=== PATIENT | male | born 1955 | race Caucasian/White ===

== ENCOUNTER 2016-12-17 21:56 | Emergency (ER) | payer OTHER ==
[~2016-12-17] VITALS: Ht 175.3 cm; Wt 119.3 kg
[~2016-12-17 21:56] MED LIST: METROGEL; PROV90AE; TRAZ50TA
[2016-12-17] MEDS ORDERED: [UNRECOGNIZED DRUG - OTHER] (22:22)
[2016-12-17] MEDS ORDERED: DULO1CAP2 PO (22:22)
[2016-12-17] MEDS ORDERED: ALBU17IN INH (22:22)
[2016-12-17] MEDS ORDERED: SYMB16INH INH (22:22)
[2016-12-17] MEDS ORDERED: INCR1INH IN (22:22)
[2016-12-17] MEDS ORDERED: XANA0.5T PO (22:22)
[2016-12-17 23:20] LABS: YEAST LIKE CELL URINE AUTO LARGE
[2016-12-17 23:59] LABS: BASO # 0.1 K/mm3 (0.0-0.2); EOS # 0.4 K/mm3 (0.0-0.50); EOS % 3.2 % (0.0-3.0); LARGE UNSTAINED CELL # 0.1 K/mm3 (0.0-0.4); LYMPH # 2.5 K/mm3 (1.5-4.5); LYMPH % 20.8 % (24.0-44.0); MEAN CORPUSCULAR HEMOGLOBIN 30.1 pg (27.0-33.0); MEAN CORPUSCULAR HGB CONC 33.5 g/dl (32.0-36.5); MEAN CORPUSCULAR VOLUME 90.1 fl (80.0-96.0); MONO # 0.8 K/mm3 (0.0-0.8); MONO % 6.8 % (0.0-5.0); NEUTROPHILS # 7.9 K/mm3 (1.8-7.7); NEUTROPHILS % 67.1 % (36.0-66.0); PLATELET COUNT, AUTOMATED 358 k/mm3 (150-450); RED CELL DISTRIBUTION WIDTH 13.6 % (11.5-14.5); WHITE BLOOD COUNT 11.7 K/mm3 (4.0-10.0)
[2016-12-18 00:03] LABS: INR 0.97
[2016-12-18 00:19] LABS: ANION GAP 9 MEQ/L (8-16); BLOOD UREA NITROGEN 26 MG/DL (7-18); CALCIUM LEVEL 9.4 MG/DL (8.8-10.2); CARBON DIOXIDE LEVEL 25 MEQ/L (21-32); CHLORIDE LEVEL 107 MEQ/L (98-107); GLOMERULAR FILTRATION RATE > 60.0 (>49); GLUCOSE, FASTING 132 MG/DL (80-110); POTASSIUM SERUM 3.9 MEQ/L (3.5-5.1); SODIUM LEVEL 141 MEQ/L (136-145)
[2016-12-18 02:27] VITALS: BP 128/79
== END 2016-12-18 02:27 | disposition home or self-care (01) ==
LOC: M ED 22:58
DX: R31.0 Gross hematuria (principal); Z87.442 Personal history of urinary calculi; Z79.899 Other long term (current) drug therapy; Z79.51 Long term (current) use of inhaled steroids; Z88.5 Allergy status to narcotic agent; Z88.0 Allergy status to penicillin

== ENCOUNTER → 2016-12-22 | Outpatient (REF) | payer OTHER ==
[~2016-12-22] MED LIST changes: +ALBU17IN INH; +DULO1CAP2 PO; +INCR1INH IN; +SYMB16INH INH; +XANA0.5T PO; +[UNRECOGNIZED DRUG - OTHER]
== END ==
LOC: M LAB REF 17:10
PROVIDERS: ATTEND Podiatrist
DX: L60.0 Ingrowing nail (principal); M79.675 Pain in left toe(s)

== ENCOUNTER → 2016-12-25 | Outpatient (REF) | payer OTHER | LOC: M SMT 12:43 | PROVIDERS: ATTEND Nurse Practitioner Family | DX: R31.0 Gross hematuria (principal) ==

== ENCOUNTER → 2017-01-18 | Outpatient (CLI) | payer OTHER ==
[~2017-01-18] MED LIST changes: +ASPI81TA85 PO; +DOXY-278 PO; +DULO1CAP3 PO; +DULO30CA PO; +EPIP0.3I2 INJ; -INCR1INH IN; +INCR1INH INH; +LEVA1TAB2 PO; +MEDICAL MARIJUANA PO; +PROP1TAB29 PO; +PROP40TA PO; +TYLE650T35 PO; +VITA100067 PO; +[UNRECOGNIZED DRUG - OTHER] PO; +medical marijuana PO
--- NOTE | 2017-01-18 12:13 | REP ---
Clinical: Nephrolithiasis. Technique: Single supine view of the abdomen and pelvis. Findings: Evaluation is limited due to technique and overlying bowel gas. 8 mm right renal calculus is suggested at the lower pole. Further evaluation of the urinary tract system is limited. Phleboliths suggested in the pelvis. Bowel gas pattern is nonspecific. Evidence for prior ventral hernia repair. Skeletal structures demonstrate age-related changes. Impression: Suspected 8 mm nonobstructing right renal calculus Signed by Eduardo Bay MD 01/18/2017 12:04 P
== END ==
LOC: M SMT 11:47
PROVIDERS: ATTEND Urology
DX: N20.0 Calculus of kidney (principal)

== ENCOUNTER → 2017-02-02 | Outpatient (CLI) | payer OTHER ==
[2017-02-02 08:33] LABS: MEAN CORPUSCULAR HGB CONC 34.2 g/dl (32.0-36.5); MEAN CORPUSCULAR VOLUME 90.6 fl (80.0-96.0); RED CELL DISTRIBUTION WIDTH 14.2 % (11.5-14.5); WHITE BLOOD COUNT 7.2 K/mm3 (4.0-10.0)
[2017-02-02 08:39] LABS: INR 0.93
[2017-02-02 08:41] LABS: ANION GAP 6 MEQ/L (8-16); BLOOD UREA NITROGEN 21 MG/DL (7-18); CALCIUM LEVEL 8.6 MG/DL (8.8-10.2); CARBON DIOXIDE LEVEL 27 MEQ/L (21-32); CHLORIDE LEVEL 106 MEQ/L (98-107); CREATININE FOR GFR 1.13 MG/DL (0.70-1.30); GLOMERULAR FILTRATION RATE > 60.0 (>49); GLUCOSE, FASTING 122 MG/DL (80-110); POTASSIUM SERUM 4.3 MEQ/L (3.5-5.1); SODIUM LEVEL 139 MEQ/L (136-145)
--- NOTE | 2017-02-02 08:44 | REP ---
PA and lateral chest: Comparisons are 04/21/[address] of the abdomen pelvis of 10/20/2016. Lung crowe are clear but again appear hyperinflated suggestive of COPD, however, this requires clinical confirmation. Cardiac size is normal. The carey, mediastinum, bony thorax unremarkable. On the lateral view there is a mass-like density far posterior inferiorly, unchanged. Upon review of the comparison CT there is a Bochdalek hernia on the right containing retroperitoneal fat but no retroperitoneal organ. Impression: There are no new or acute cardiopulmonary findings. Possible COPD, requiring clinical confirmation. Bochdalek hernia posteriorly on the right containing retroperitoneal fat but no retroperitoneal organ. Signed by Dwain Chiang MD 02/02/2017 08:36 A
--- NOTE | 2017-02-02 20:30 | ECGEPIP ---
Stationary ECG Study [facility] Test Date: 2017-02-02 Pat Name: GENIE BUCKNER Department: Room: - Gender: M Editor Greeting Card: LOYDA : 1955 Requested By: JACINTA Bush Order Number: [id number] Reading MD: Arcadio Walls Measurements Intervals [place] Rate: 65 P: 78 NH: 182 QRS: 51 QRSD: 102 T: 37 QT: 402 QTc: 419 Interpretive Statements Normal sinus rhythm. Low limb voltages with persistent S waves in V5 and V6. Body habitus versus pulmonary disease Marginal ST/T-wave abnormalities. No change from 10/25/13 Electronically Signed On 02-02-2017 20:29:47 EDT by Arcadio Walls
== END ==
LOC: M LAB 07:40
PROVIDERS: ATTEND Urology
DX: N20.0 Calculus of kidney (principal); Z01.818 Encounter for other preprocedural examination

== ENCOUNTER → 2017-02-05 | Outpatient (REF) | payer OTHER | LOC: M LAB REF 16:00 | PROVIDERS: ATTEND Podiatrist | DX: L03.032 Cellulitis of left toe (principal) ==

== ENCOUNTER 2017-02-16 00:27 | Day surgery (SDC) | payer MEDICAID, OTHER ==
[~2017-02-16] VITALS: Ht 177.8 cm; Wt 119.0 kg
[~2017-02-16 00:27] MED LIST changes: -DOXY-278 PO; -DULO30CA PO; -EPIP0.3I2 INJ; -LEVA1TAB2 PO; -PROP1TAB29 PO; -TYLE650T35 PO; -VITA100067 PO; -[UNRECOGNIZED DRUG - OTHER] PO
[2017-02-16] MEDS ORDERED: PROP1TAB29 PO (00:59)
[2017-02-16] MEDS ORDERED: DULO30CA PO (00:59)
[2017-02-16] MEDS ORDERED: DOXY-278 PO (00:59)
[2017-02-16] MEDS ORDERED: NS 1,000 ML IV ONE (01:15)
[2017-02-16] MEDS ORDERED: HYDROmorphone HCL 1 MG/ML SYRINGE (J1170) IV ONE ×2 (01:15→04:15)
[2017-02-16] MEDS ORDERED: KETOROLAC 30 MG/ML VIAL (J1885) IV ONE (01:15)
[2017-02-16 01:34] LABS: BASO # 0.1 K/mm3 (0.0-0.2); BASO % 1.2 % (0.0-1.0); EOS # 0.4 K/mm3 (0.0-0.50); EOS % 3.7 % (0.0-3.0); LARGE UNSTAINED CELL # 0.1 K/mm3 (0.0-0.4); LARGE UNSTAINED CELL % 1.1 % (0.0-4.0); LYMPH # 2.2 K/mm3 (1.5-4.5); LYMPH % 17.9 % (24.0-44.0); MEAN CORPUSCULAR HEMOGLOBIN 31.3 pg (27.0-33.0); MEAN CORPUSCULAR HGB CONC 34.4 g/dl (32.0-36.5); MONO # 0.7 K/mm3 (0.0-0.8); MONO % 5.6 % (0.0-5.0); NEUTROPHILS # 8.5 K/mm3 (1.8-7.7); NEUTROPHILS % 70.5 % (36.0-66.0); PLATELET COUNT, AUTOMATED 350 k/mm3 (150-450); RED CELL DISTRIBUTION WIDTH 13.6 % (11.5-14.5); WHITE BLOOD COUNT 12.1 K/mm3 (4.0-10.0)
[2017-02-16 01:52] LABS: CALCIUM LEVEL 9.6 MG/DL (8.8-10.2); CREATININE FOR GFR 1.5 MG/DL (0.70-1.30); GLOMERULAR FILTRATION RATE 50.5 (>49)
[2017-02-16] MEDS ORDERED: MORPHINE 10 MG/ML 1ML VIAL IV ONE (05:30)
[2017-02-16] MEDS ORDERED: [UNRECOGNIZED DRUG - OTHER] PO (06:11)
[2017-02-16] MEDS ORDERED: EPIP0.3I2 INJ (06:11)
--- NOTE | 2017-02-16 08:20 | REP ---
Clinical: Pain. Comparison: 10/20/2016. Findings: Acute moderate right-sided obstructive uropathy noted including perinephric and proximal periureteral stranding secondary to a 7 mm calculus at the ureteral pelvic junction (images 63 - 66). Remainder of the urinary tract system including the left kidney/ureter and bladder appear normal. There is a right posterior fat containing diaphragmatic hernia at the lung base. Liver, spleen, pancreas, gallbladder, and bilateral adrenal glands are normal for noncontrast evaluation. The enteric system is without obstruction or acute inflammatory process. Scattered diverticula noted without acute diverticulitis. Pelvis demonstrates collapsed bladder and mildly prominent prostate/seminal vesicles. Fat containing left inguinal hernia noted. No pelvic fluid or ascites. No obvious adenopathy. No free air. Atherosclerotic changes of the aorta and vasculature noted without aneurysm. Surrounding musculoskeletal structures demonstrate age-related degenerative changes. Lung bases are clear. Impression: 1. Acute moderate right-sided obstructive uropathy with a 7 mm calculus at the ureteropelvic junction. 2. Moderate fat containing right posterior diaphragmatic hernia at the right lung base. 3. Diverticula without acute diverticulitis. Signed by Eduardo Bay MD 02/16/2017 01:35 A
[2017-02-16] MEDS ORDERED: DULoxetine 30 MG CAP (CYMBALTA) PO SCH (09:00)
[2017-02-16] MEDS ORDERED: ASPIRIN 81 MG ENTERIC TAB PO SCH (09:00)
[2017-02-16] MEDS ORDERED: HYDROmorphone HCL 1 MG/ML SYRINGE (J1170) As Ordered ONE (09:23)
[2017-02-16] MEDS: HYDROmorphone HCL 1 MG/ML SYRINGE (J1170) IV PRN ×2 (09:28→12:38)
[2017-02-16] MEDS ORDERED: IPRATROPIUM 0.5MG/ALBUTEROL 2.5MG INH SOL UD 3ML (DUONEB)(J7620) NEB PRN (11:45)
[2017-02-16] MEDS ORDERED: ONDANSETRON 4MG/2ML VIAL (J2405) IV PRN ×2 (11:45→16:30)
[2017-02-16] MEDS ORDERED: HYDROmorphone HCL 1 MG/ML SYRINGE (J1170) IV PRN ×2 (11:45)
[2017-02-16 12:05] VITALS: BP 175/90
[2017-02-16] MEDS ORDERED: LevoFLOXacin IV 500 MG in APPROPRIATE DILUENT 1 EA IV ONE (12:30)
[2017-02-16] MEDS ORDERED: NS 1,000 ML IV SCH (12:30)
[2017-02-16] MEDS: LR 1,000 ML IV SCH ×2 (12:45→15:44)
[2017-02-16] MEDS ORDERED: CONRAY-60 60% 50ML VIAL (Q9961) As Ordered ONE (13:44)
[2017-02-16] MEDS ORDERED: IPRATROPIUM 0.5MG/ALBUTEROL 2.5MG INH SOL UD 3ML (DUONEB)(J7620) NEB SCH (14:00)
[2017-02-16] MEDS ORDERED: LevoFLOXacin(LEVAQUIN)500 MG/100 ML BAG (J1956) As Ordered ONE (14:28)
[2017-02-16] MEDS ORDERED: fentaNYL 100 MCG/2 ML INJECTION (J3010) As Ordered ONE (15:05)
[2017-02-16] MEDS ORDERED: METOCLOPRAMIDE INJ 10MG/2ML VIAL (J2765) As Ordered ONE (15:05)
[2017-02-16] MEDS ORDERED: MIDAZOLAM INJ 2 MG/2 ML VIAL (J2250) As Ordered ONE (15:05)
[2017-02-16] MEDS ORDERED: LIDOCAINE 2% INJ 100 MG/5 ML SDV (FOR ANES.) As Ordered ONE (15:05)
[2017-02-16] MEDS ORDERED: dexameTHASONE 4 MG/ML 1ML VIAL (J1100) As Ordered ONE (15:05)
[2017-02-16] MEDS ORDERED: ePHEDrine SULFATE 25 MG/5 ML(5MG/ML) SYRINGE As Ordered ONE (15:06)
[2017-02-16] MEDS ORDERED: PHENYLephrine HCL 500 MCG/5 ML (100MCG/ML) SYRINGE (J2370) As Ordered ONE (15:10)
[2017-02-16] MEDS ORDERED: GLYCOPYRROLATE INJ 0.2 MG/ML 2 ML VIAL As Ordered ONE (15:25)
[2017-02-16] MEDS ORDERED: NEOSTIGMINE 1MG/ML 5 ML SYRINGE (J2710) As Ordered ONE (15:25)
[2017-02-16] MEDS ORDERED: TYLE650T35 PO (15:33)
[2017-02-16] MEDS ORDERED: LEVA1TAB2 PO (15:33)
--- NOTE | 2017-02-16 15:37 | CR ---
DATE OF CONSULTATION: 02/16/2017 REQUESTING PROVIDER: Dr. Lindo PRIMARY CARE PROVIDER: Dr. Chas Louise PUNCH PRESS OPERATOR HELPER: Dr. Chou REASON FOR CONSULTATION: Medical optimization. HISTORY OF PRESENT ILLNESS: This is a 61-year-old male patient with underlying medical history of prediabetes, chronic obstructive pulmonary disease (COPD), obstructive sleep apnea on CPAP, hypertension, history of kidney stones, peripheral neuropathy. The patient presented to the hospital with acute onset of right sided abdominal and flank pain starting at 11:00 p.m. on 02/15/2017. Reported 10 out of 10 pain at one point. Currently a 3 out of 10 pain in the emergency room with one episode of nausea and vomiting. Denies any fevers or chills. Denies any urinary complaints. Denies any chest pain, pressure or discomfort. In the emergency room, CT of the abdomen was done and found a 7 mm stone at the ureteropelvic junction on the right side that is obstructing. The patient at baseline has significant neuropathy. He is able to ambulate one block without any problem and walk up a flight of stairs using a cane. Denies any chest pain, palpitations. No history of coronary arterial disease or stents. No history of CVA. Reported using CPAP with a pressure setting of 6.5. PAST MEDICAL HISTORY: 1. Prediabetes. 2. Chronic obstructive pulmonary disease (COPD). 3. Obstructive sleep apnea. 4. Hypertension. PAST SURGICAL HISTORY: Umbilical hernia, bilateral inguinal hernia, right fifth digit surgery, carpal tunnel surgery, trigger finger release of the right hand. SOCIAL HISTORY: Quit smoking in 2000, smoked 1-1/2 packs per day for 25 years. Drinking alcoholic beverages once a week. Lives at home with family. REVIEW OF SYSTEMS: Reported nausea with one episode of vomiting and right flank and right sided abdominal pain that is nonradiating and with no relieving or exacerbating factor. ALLERGIES: BEE VENOM, CODEINE, IBUPROFEN, PENICILLIN, PENICILLIN CROSS-REACTORS. HOME MEDICATIONS: - Ventolin inhaler four times a day as needed - aspirin 81 mg by mouth daily - Symbicort 160/4.5 inhalation twice a day - doxycycline 100 mg by mouth twice a day - Cymbalta 30 mg by mouth twice a day - EpiPen - Ellipta 62.5 mcg inhalation daily - propranolol 20 mg by mouth twice a day VITAL SIGNS: Temperature 97.4, pulse 68, respirations 18, blood pressure 175/90 , pulse oximetry 96% on room air. GENERAL: The patient is alert, oriented times three. No acute distress. HEENT: Normocephalic, atraumatic. PULMONARY: Bilaterally clear to auscultation. CARDIAC: Regular rate and rhythm. Normal S1, S2. ABDOMEN: Soft. Right sided abdominal tenderness. No rebound. No guarding. Positive bowel sounds. CVA tenderness on the right side. NEUROLOGIC: No focal deficits. LABORATORY DATA: WBC 12.1, hemoglobin and hematocrit 16.2/47.1, platelets 350. Chemistry: Sodium 141, potassium 4, chloride 111, bicarbonate 26, BUN 28, creatinine 1.5. ASSESSMENT AND PLAN: This is a 61-year-old male patient with underlying medical history of COPD, prediabetes, peripheral neuropathy, obstructive sleep apnea, hypertension, nephrolithiasis, medicine consulted for medical optimization prior to cystoscopy with stent placement. The patient came in with right sided 7 mm kidney stone with obstructive uropathy. 1. Obstructing right sided 7 mm kidney stone. Management as per urology. Case discussed with Dr. Lindo. Will be going for cystoscopy with stent placement. The patient with underlying history of COPD, prediabetes, and peripheral neuropathy, obstructive sleep apnea, baseline METs greater than 4, able to ambulate one block and walk up a flight of stairs. On good days, the patient can walk a mile without any problem, but is currently using a cane due to neuropathy. The patient is intermediate risk for low intermediate risk procedure. Currently medically optimized for surgery, nothing by mouth, pain medication and antibiotic as per urology team. Obstructive sleep apnea protocol. If the patient ends up getting admitted overnight, will need patient's CPAP. IV fluids. Antibiotics as per urology. The patient is on Levaquin. Followup urine culture. UA is appreciated. 2. Elevation of creatinine with underling chronic kidney disease. Continue IV fluids. Followup kidney function. Likely associated with obstructive uropathy with underlying chronic kidney disease. 3. Prediabetes. Followup fingersticks and glucose. If needed, we will put the patient on insulin protocol. 4. Chronic obstructive pulmonary disease (COPD). The patient is not oxygen dependent. Continue inhalers and nebulizer treatment as needed. 5. Hypertension. Monitor blood pressure. Adjust medication as needed. Continue propranolol. 6. Obstructive sleep apnea. If the patient stays, will need CPAP at night. 7. Deep vein thrombosis (DVT) prophylaxis. If the patient gets admitted to the hospital, we will start Lovenox subcutaneous tomorrow. DISPOSITION: Management as per urology. Currently, the patient is here for same day procedure, medically optimized. Please refer to above. EKG shows sinus rhythm, was normal EKG. No ST segment changes. edited: 02/16/2017 1547 tkf HAVEN
[2017-02-16] MEDS ORDERED: ALBUTEROL 6.7GM INHALER **FOR ANES. CART/OMNICELL ONLY As Ordered ONE (15:39)
[2017-02-16] MEDS ORDERED: ONDANSETRON 4MG/2ML VIAL (J2405) As Ordered ONE (15:46)
[2017-02-16] MEDS ORDERED: PROPOFOL 200 MG/20 ML VIAL As Ordered ONE (15:46)
[2017-02-16] MEDS ORDERED: SEVOFLURANE INHAL SOLN 250 ML BTL As Ordered ONE (15:46)
[2017-02-16] MEDS ORDERED: ROCURONIUM BROMIDE 50 MG/5 ML VIAL/SYRINGE As Ordered ONE (15:46)
--- NOTE | 2017-02-16 15:48 | REP ---
Retrograde pyelogram: The procedures performed by the urologist, Dr. Stovall. A series of three intraoperative fluoroscopic views are performed during placement of a right ureteral stent. Final film demonstrates the proximal and distal pigtails are in satisfactory locations. Fluoroscopic exposure time is 37 seconds. Fluoroscopic images are performed last image hold technology. These images require no additional radiation. Signed by Dwain Chiang MD 02/16/2017 03:39 P
[2017-02-16 16:30] VITALS: BP 162/80
[2017-02-16] MEDS ORDERED: PERCOCET 5MG/325MG TAB PO PRN (16:30)
[2017-02-16] MEDS ORDERED: fentaNYL 100 MCG/2 ML INJECTION (J3010) IV PRN (16:30)
[2017-02-16] MEDS ORDERED: LR 1,000 ML IV SCH (16:30)
[2017-02-16] MEDS ORDERED: METOCLOPRAMIDE INJ 10MG/2ML VIAL (J2765) IV PRN (16:30)
[2017-02-16] MEDS ORDERED: MEPERIDINE INJ 25 MG/ML VIAL (J2175) IV PRN (16:30)
[2017-02-16 17:00] VITALS: BP 174/84
[2017-02-16 17:30] VITALS: BP 180/91
[2017-02-16 18:30] VITALS: BP 138/88
[2017-02-16] MEDS ORDERED: SENOKOT S TAB PO SCH (21:00)
[2017-02-16] MEDS ORDERED: SYMBICORT 160/4.5MCG INHALER 6GM INH SCH (21:00)
[2017-02-16] MEDS ORDERED: PROPRANOLOL 20 MG TAB PO SCH (21:00)
[2017-02-16] MEDS ORDERED: ACETAMINOPHEN 650MG ER TAB (TYLENOL ARTHRITIS) PO SCH (22:00)
[2017-02-17] MEDS ORDERED: LevoFLOXacin 500 MG TABLET PO SCH (06:00)
[2017-02-17] MEDS ORDERED: ENOXAPARIN 30 MG/0.3 ML SYR (J1650) SC SCH (09:00)
--- NOTE | 2017-02-17 13:11 | RO ---
DATE OF PROCEDURE: 02/16/2017 PREOPERATIVE DIAGNOSIS: Right ureteral stone. POSTOPERATIVE DIAGNOSIS: Right ureteral stone. PROCEDURE: Cystoscopy, plus right retrograde pyelogram, plus right double J stent placement 6-Gabonese Grafton Cook. SURGEON: Malik Lindo MD TUBING DRIER: ANESTHESIA: General. COMPLICATIONS: None. ESTIMATED BLOOD LOSS: N/A. HISTORY OF PRESENT ILLNESS: This is a 61-year-old male patient that has right flank pain, nausea, vomiting, a little bit of chills, no fevers since 24 hours ago. The patient has had to come to the emergency department times two. This last time he is having severe pain. For this reason, he has consented for a cystoscopy, plus right retrograde pyelogram, plus right double J stent placement. PROCEDURE DESCRIPTION: In a patient under general anesthesia in supine modified low lithotomy position after prepping and draping the area of concern, which included the entire genitalia and abdomen, we started by introducing a cystoscope, #21-Gabonese in diameter with a 30-degree lens, under videoendoscopic guidance. The fossa navicularis, penile urethra, bulbar urethra, and membranous urethra were totally normal. The prostatic urethra was totally normal. The bladder had no tumors, no stones, no foreign objects. Both ureteral orifices were seen. We then catheterized with a Pollack catheter 5-Gabonese to the right ureteral orifice and did a retrograde pyelogram. We could see a stone in the ureteropelvic junction (UPJ) and then, hydronephrosis. We then passed a guidewire up to the kidney, took the Pollack catheter out and loaded a double J stent 6-Gabonese Grafton Cook, and once the stent was in good position we took the catheter out and we could see a curl in the kidney and a curl in the bladder. We then emptied the bladder and took the cystoscope out. PLAN: The patient will go home with antibiotic, Levaquin 500 mg, one tablet by mouth every day for 10 days and Tylenol Extended Release one tablet by mouth every 8 hours as needed for pain. Followup at [facility] [place] for definitive therapy of the right ureteral stone. There were no complications during surgery.
--- NOTE | 2017-02-17 13:53 | ECGEPIP ---
Stationary ECG Study [facility] - ED Test Date: 2017-02-16 Pat Name: GENIE BUCKNER Department: Room: - Gender: M Covering Machine Tender: whitney : 1955 Requested By: Jeanine Pastor Order Number: [id number] Reading MD: Jeanine Pastor Measurements Intervals [place] Rate: 68 P: 59 RI: 184 QRS: 36 QRSD: 94 T: 32 QT: 402 QTc: 429 Interpretive Statements SINUS RHYTHM NSTTW ABNORMALITY LOW VOLTAGE LIMB Electronically Signed On 02-17-2017 13:53:07 EDT by Jeanine Pastor
[2017-03-30] MEDS ORDERED: VITA100067 PO (10:33)
== END 2017-02-16 18:45 | disposition home or self-care (01) ==
LOC: M ED 00:27 → M SDC 07:00 → M PED 12:08 → M SDC 18:45
PROVIDERS: ATTEND Urology
DX: N20.1 Calculus of ureter (principal); R11.2 Nausea with vomiting, unspecified; R10.9 Unspecified abdominal pain; R68.83 Chills (without fever); I12.9 Hypertensive chronic kidney disease with stage 1 through stage 4 chronic kidney disease, or unspecified chronic kidney disease; J44.9 Chronic obstructive pulmonary disease, unspecified; G47.33 Obstructive sleep apnea (adult) (pediatric); J45.909 Unspecified asthma, uncomplicated; G62.9 Polyneuropathy, unspecified; R73.03 Prediabetes; R79.89 Other specified abnormal findings of blood chemistry; Z87.891 Personal history of nicotine dependence; N18.4 Chronic kidney disease, stage 4 (severe); Z79.899 Other long term (current) drug therapy; Z79.51 Long term (current) use of inhaled steroids; Z79.82 Long term (current) use of aspirin; Z79.2 Long term (current) use of antibiotics; Z88.0 Allergy status to penicillin; Z88.5 Allergy status to narcotic agent; Z88.8 Allergy status to other drugs, medicaments and biological substances; Z91.030 Bee allergy status
CPT/HCPCS: 52332; 74176; 74420; 80048; 81001; 85025; 87086; 93000; 96374; 96375; 96376; 99284; C1769; C2617; J1100; J1170; J1885; J1956; J2250; J2370; J2405; J2710; J2765; J3010; Q9961

== ENCOUNTER 2017-03-04 05:37 | Day surgery (SDC) | payer OTHER ==
--- NOTE | 2017-02-25 08:41 | CR ---
PREOPERATIVE EVALUATION AND CONSULTATION DATE OF CONSULTATION: 02/03/2017 CONSULTING PROVIDER: Chas Louise MD SURGEON: Dr. Rodas PROPOSED PROCEDURE: Right extracorporeal shock wave lithotripsy (ESWL) for renal calculi. PROCEDURE PLANNED FOR: 02/18/2017 Chest x-ray and EKG are pending at this time. CHIEF COMPLAINT: Medical optimization. HISTORY OF PRESENT ILLNESS: Very pleasant 61-year-old gentleman with a number of medical problems, presents today for preoperative evaluation in the setting of multiple medical problems. The patient has had evaluation for hematuria and renal calculi by Dr. Rodas and the plan is for ESWL, right sided, under conscious sedation. The patient has not had any issues with significant cardiac problems. He has had rule out evaluations in the emergency department without significant abnormalities indicating cardiac concerns. The patient does have underlying chronic obstructive pulmonary disease (COPD) and obstructive sleep apnea. He is on Symbicort and Ellipta with as needed ProAir, which appears to be effective. The patient otherwise has had no issues with anesthesia. He has seen neurology for a workup for an underlying neurologic condition with paresthesias and tremulousness. This has generally been stable. He has significant anxiety, for which we have been treating with Cymbalta and have increased today. He does have Xanax, and we are looking to taper this. He notes that this has been effective. He does see Dr. Chou for his ASH and COPD. He does follow with Dr. Thompson for some left toe cellulitis and disorders of the toe nail, but does not have any compelling reason that he should not have ESWL completed for his large renal calculi identified on the right side under the supervision of Dr. Rodas. The patient's other medical issues include: Type 2 diabetes, which is controlled with last hemoglobin A1/c of 6.4. He has had some increased anxiety and we are increasing his Cymbalta. He has no significant wheezing. He has good compliance with his CPAP. He is appropriately following with Dr. Thompson regarding his toe nail issues. PAST MEDICAL HISTORY: 1. COPD/asthma, follows with Dr. Chou of [facility]. 2. ASH on CPAP, good compliance, palliated on CPAP 8 cm of water. 3. History of cigarette smoking, 25 pack years, quit in 2010. 4. History of hypertension, well controlled. 5. Renal calculi, seeing Dr. Rodas of [facility] u[facility]. 6. History of ingrown toe nails, history of cellulitis, seeing Dr. Thompson. 7. Paresthesias, feelings of tremulous, abnormal EMG. Continues to undergo full evaluation with Dr. Muniz, as well as doctors at the [facility]. PAST SURGICAL HISTORY: 1. Umbilical hernia repair times two. 2. Bilateral umbilical hernia repair as a child. 3. Carpal tunnel release in 1991, Dr. Griffin. 4. Lower lip lesion removed in 1977. 5. Trigger finger release of right hand. ALLERGIES: PENICILLIN caused his throat to swell. CODEINE caused overall body itching. ADVIL caused some facial swelling. BEE STING caused anaphylaxis. MEDICATIONS: - EpiPen as needed for bee stings - aspirin 81 mg by mouth daily - ketoconazole cream and Denavir cream to be used as instructed - Xanax 0.5 mg twice a day - Symbicort 160/4.5 mcg/ACP used twice a day - ProAir HFA inhaled every four hours as needed for wheezing - Incruse Ellipta 62.5 mcg/inhalation daily - Combivent HFA as needed - Cymbalta 30 mg twice a day (new dose today) - CPAP used at 8 cm of water SOCIAL HISTORY: The patient lives with his significant other, Franchesca Larson. He has two children in their 30s from his first marriage. He is a former smoker, approximately 1-1/2 packs of cigarettes a day for 25 years, having quit in 2010. Drinks occasional alcohol. Has not exercised regularly. FAMILY HISTORY: His father of lung cancer at age 84. His mother of COPD and possibly lung cancer at age 84 as well. He has three brothers, one passed from suicide and the other two are alive. REVIEW OF SYSTEMS: As per history of present illness. Otherwise, ten system review is negative. VITAL SIGNS: Blood pressure 132/86, pulse 72, height of 5 feet 9 inches, weight 262 pounds, Body Mass Index (BMI) of 38.7, oxygen saturation is 95% on room air. GENERAL: He is a very pleasant gentleman at baseline health. No acute distress. Nontoxic. Alert and oriented times three. He is well developed. HEENT: Pupils are equal, round and reactive to light and accommodation. Extraocular motions are intact. No lesions of the lid or conjunctivae. Head is atraumatic, normocephalic. Oral cavity and oropharynx are benign. Tympanic membranes are benign. NECK: Supple. No lymphadenopathy or thyromegaly. No radiculopathy on passive movement of the neck. LUNGS: Clear to auscultation bilaterally. No rales, rhonchi or wheeze appreciated at this point in time. HEART: Regular rate and rhythm. S1, S2. No murmur. ABDOMEN: Soft, nontender, nondistended, obese. He does have recurrence of umbilical hernia, easily reduced. EXTREMITIES: No clubbing, cyanosis or edema. NEUROLOGIC: Exam is nonfocal; however, the patient does have unusual paresthesias and electrical pains, being worked up by Dr. Muniz. Laboratories, EKG and chest x-ray are pending at the time of visit, however previous did not show significant abnormalities, including EKG with sinus rhythm and nonspecific ST-T changes. Extensive lab work. ASSESSMENT AND PLAN: 1. Preoperative evaluation and consultation. At this point in time, the patient appears to be optimized for surgical intervention. His COPD/asthma is controlled. He will bring his CPAP for his obstructive sleep apnea and will require appropriate monitoring. His diabetes is controlled with an appropriate hemoglobin A1/c. His blood pressure is well controlled today. He appears appropriate for ESWL, which is a low risk procedure. The patient understands the risks, looks forward to moving forward with this. It is notable that he is interested in having hernia repaired as well at some time; however, due to risk of renal insufficiency, this takes acute priority. 2. Renal calculi. Relatively large renal calculi on the right side, for which the patient plans on undergoing ESWL. He has already had cystoscopy for the known hematuria and continues to follow appropriately with Dr. Rodas. 3. Obstructive sleep apnea, doing well on CPAP, will continue. 4. COPD/asthma, no exacerbation. Appears to be well controlled on present medication. Follows with Dr. Chou. 5. Anxiety. The patient has been on Xanax. I believe that there may be a component of this exacerbating his other medical issues and we will increase his Cymbalta to 30 mg twice a day. 6. Paresthesias and neurologic symptoms. Again, he is following with Dr. Muniz. He was evaluated at [facility] and continues to follow up. There is no other treatment at this point in time planned, but it is our hope that the increase in Cymbalta will help with the electrical sensation from his paresthesias and polyneuropathy. 7. Type 2 diabetes, well controlled. Last hemoglobin A1/c was 6.4. We will continue to monitor. 8. Cellulitis of the great toe. The patient is following with Dr. Thompson. He is aware that he will be seeing Dr. Thompson and this will need to be monitored and if acute infection is an issue, the procedure should be postponed, but he will let us know and followup appropriately. 9. Ongoing care. I am going to see the patient as scheduled with laboratories; however, again, he understands the importance of dealing with this acute issue. If he has any new problems sooner, he will go to the emergency department. Otherwise, I will see him as scheduled. ADDENDUM: At this point in time, it is notable that the patient has had increasing right flank pain and presented to the emergency department for admission on 2016. Medical optimization was provided by Dr. Villalta and the note was completed at that time. I have not had contact with the patient since that time; however, the urgency of the patient's pain does appear that ESWL or cystoscopy with extraction is appropriate. Urology may call me at any time at [phone] with any questions or concerns that I may assist them with. HAVEN
[~2017-03-04] VITALS: Ht 175.3 cm; Wt 117.5 kg
[~2017-03-04 05:37] MED LIST changes: +DOXY-278 PO; +DULO30CA PO; +EPIP0.3I2 INJ; +LEVA1TAB2 PO; +PROP1TAB29 PO; +TYLE650T35 PO; +[UNRECOGNIZED DRUG - OTHER] PO
[2017-03-04] MEDS ORDERED: CIPROFLOXACIN 400 MG in APPROPRIATE DILUENT 1 EA IV ONE (06:00)
[2017-03-04] MEDS ORDERED: LIDOCAINE 1% SDV 5 ML VIAL SQ ONE (06:00)
[2017-03-04] MEDS ORDERED: LR 1,000 ML IV SCH ×2 (06:00→08:30)
[2017-03-04] MEDS ORDERED: fentaNYL 100 MCG/2 ML INJECTION (J3010) As Ordered ONE (06:58)
[2017-03-04] MEDS ORDERED: MIDAZOLAM INJ 2 MG/2 ML VIAL (J2250) As Ordered ONE (06:58)
[2017-03-04] MEDS ORDERED: LIDOCAINE 2% INJ 100 MG/5 ML SDV (FOR ANES.) As Ordered ONE (06:59)
[2017-03-04] MEDS ORDERED: PROPOFOL 200 MG/20 ML VIAL As Ordered ONE (06:59)
[2017-03-04 08:25] VITALS: BP 155/90
[2017-03-04] MEDS ORDERED: METOCLOPRAMIDE INJ 10MG/2ML VIAL (J2765) IV PRN (08:30)
[2017-03-04] MEDS ORDERED: ONDANSETRON 4MG/2ML VIAL (J2405) IV PRN (08:30)
[2017-03-04] MEDS ORDERED: PERCOCET 5MG/325MG TAB PO PRN (08:30)
[2017-03-04] MEDS ORDERED: NORCO, ANEXSIA 5/325MG TABLET (HYDROcodone/ACETAMINOPHEN) PO PRN ×2 (08:30)
--- NOTE | 2017-03-04 13:17 | REP ---
Supine abdomen single AP view: Comparison is 01/18/2017. There is a right ureteral stent as an interval change. The proximal and distal pigtails are in satisfactory locations. There is a calcification adjacent to the proximal portion of the stent near the proximal pigtail. There are calcifications inferiorly in the pelvis, unchanged, likely phleboliths. Numerous abdominal mesh retainers are identified, unchanged. The bowel gas pattern is normal. The skeletal structures are unremarkable. Signed by Dwain Chiang MD 03/04/2017 08:15 A
--- NOTE | 2017-03-06 13:33 | RO ---
DATE OF PROCEDURE: 03/04/2017 PREPROCEDURE DIAGNOSIS: Kidney stones. POSTPROCEDURE DIAGNOSIS: Kidney stones. PROCEDURE: Right extracorporal shockwave lithotripsy. SURGEON: Dr. Devan Rodas. PARKER: None. ANESTHESIA: MAC. OPERATIVE INDICATIONS: This is a 61-year-old male who was found to have a 9 mm right ureteropelvic junction stone. He previously underwent a ureteral stent placement. He is here today for treatment of his stone. DESCRIPTION OF PROCEDURE: The patient was brought to the operating room and MAC anesthesia was administered. Prophylactic antibiotics were infused. The patient was placed in the supine position and preparation for right-sided extracorporal shockwave lithotripsy. Shock waves were then delivered to the right kidney stone ungated. There were no arrhythmias. Fluoroscopy was utilized to monitor stone position and fragmentation throughout the procedure. The stone did appear to fragment well. After 2500 shocks, the procedure was then concluded. The patient was then awakened from anesthesia and transported to the recovery room in stable condition. ESTIMATED BLOOD LOSS: 0 mL COMPLICATIONS: None. SPECIMENS: None. PLAN: The patient will followup in the clinic in a few weeks with imaging prior to assess for residual stone burden. If he has passed his stones, we will remove the stent at that time. HAVEN
[2017-03-30] MEDS ORDERED: VITA100067 PO (10:33)
== END 2017-03-04 08:47 | disposition home or self-care (01) ==
LOC: M SDC 05:37
PROVIDERS: ATTEND Urology
DX: N20.0 Calculus of kidney (principal); I10 Essential (primary) hypertension; R60.0 Localized edema; E11.40 Type 2 diabetes mellitus with diabetic neuropathy, unspecified; R06.02 Shortness of breath; S91.101D Unspecified open wound of right great toe without damage to nail, subsequent encounter; J45.909 Unspecified asthma, uncomplicated; J44.9 Chronic obstructive pulmonary disease, unspecified; R06.83 Snoring; G47.33 Obstructive sleep apnea (adult) (pediatric); Z88.0 Allergy status to penicillin; Z88.6 Allergy status to analgesic agent; Z88.5 Allergy status to narcotic agent; Z79.899 Other long term (current) drug therapy; Z79.82 Long term (current) use of aspirin
CPT/HCPCS: 50590; 74000; J0744; J2250; J3010

== ENCOUNTER → 2017-03-23 | Outpatient (CLI) | payer OTHER ==
[~2017-03-23] MED LIST changes: +VITA100067 PO
--- NOTE | 2017-03-23 13:44 | REP ---
Clinical: Nephrolithiasis. Technique: Two supine views of the abdomen and pelvis. Comparison: 03/04/2017. Findings: Right ureteral stent in satisfactory position. A 6 mm calculus is identified adjacent to the proximal portion of the stent likely at the ureteropelvic junction. The patient appears to be status post ventral hernia repair. Bowel gas pattern is nonspecific. Skeletal structures are intact. Impression: Right ureteral stent in satisfactory position. Continued evidence for right UPJ stone. Signed by Eduardo Bay MD 03/23/2017 01:36 P
== END ==
LOC: M SMT 13:14
PROVIDERS: ATTEND Urology
DX: N20.0 Calculus of kidney (principal)

== ENCOUNTER → 2017-03-26 | Outpatient (CLI) | payer OTHER ==
--- NOTE | 2017-03-26 13:39 | REP ---
Clinical: Left-sided testicular pain. Technique: Burkett scale and color Doppler evaluation using linear and curved array transducer with color Doppler evaluation. Findings: The testicles and epididymi are relatively normal in contour, size, echogenicity, vascularity and overall appearance. Multiple right epididymal cysts measuring up to 5 mm. There is no evidence for intratesticular mass lesion, infectious/inflammatory process, with torsion. No obvious hydroceles. Small left-sided partially thrombosed varicoceles measuring up to 2.7 mm. Right testicle measures 4.9 x 2.0 x 3.1 cm. Left testicle measures 4.3 x 2.1 x 3.0 cm. Impression: Few right-sided epididymal cysts up to 5 mm. Small partially thrombosed left varicoceles measuring up to 2.7 mm diameter. Signed by Eduardo Bay MD 03/26/2017 01:30 P
== END ==
LOC: M RAD 12:46
PROVIDERS: ATTEND Surgery
DX: N44.2 Benign cyst of testis (principal)

== ENCOUNTER → 2017-03-26 | Outpatient (CLI) | payer OTHER ==
[2017-03-26 13:09] LABS: MEAN CORPUSCULAR HEMOGLOBIN 30.4 pg (27.0-33.0); MEAN CORPUSCULAR HGB CONC 33.3 g/dl (32.0-36.5); MEAN CORPUSCULAR VOLUME 91.3 fl (80.0-96.0); RED CELL DISTRIBUTION WIDTH 13.4 % (11.5-14.5); WHITE BLOOD COUNT 8.9 K/mm3 (4.0-10.0)
[2017-03-26 13:46] LABS: ANION GAP 7 MEQ/L (8-16); BLOOD UREA NITROGEN 21 MG/DL (7-18); CALCIUM LEVEL 9.1 MG/DL (8.8-10.2); CARBON DIOXIDE LEVEL 27 MEQ/L (21-32); CHLORIDE LEVEL 107 MEQ/L (98-107); CREATININE FOR GFR 1.22 MG/DL (0.70-1.30); GLOMERULAR FILTRATION RATE > 60.0 (>49); GLUCOSE, FASTING 118 MG/DL (80-110); POTASSIUM SERUM 4.5 MEQ/L (3.5-5.1); SODIUM LEVEL 141 MEQ/L (136-145)
== END ==
LOC: M LAB 12:16
PROVIDERS: ATTEND Urology
DX: Z01.818 Encounter for other preprocedural examination (principal); N20.0 Calculus of kidney; N39.0 Urinary tract infection, site not specified

== ENCOUNTER → 2017-04-01 | Day surgery (SDC) | payer OTHER ==
[~2017-04-01] VITALS: Ht 176.5 cm; Wt 111.1 kg
[~2017-04-01] MED LIST changes: +CONRAY-60 60% 50ML VIAL (Q9961) As Ordered ONE; +LEVALBUTEROL 1.25 MG/0.5 ML CONCENTRATE NEB As Ordered ONE; +LEVALBUTEROL 1.25 MG/0.5 ML CONCENTRATE NEB INH ONE; +LIDOCAINE 2% INJ 100 MG/5 ML SDV (FOR ANES.) As Ordered ONE; +LR 1,000 ML IV ONE; +LR 1,000 ML IV SCH; +LevoFLOXacin IV 500 MG in APPROPRIATE DILUENT 1 EA IV ONE; +MEPERIDINE INJ 25 MG/ML VIAL (J2175) IV PRN; +METOCLOPRAMIDE INJ 10MG/2ML VIAL (J2765) IV PRN; +MIDAZOLAM INJ 2 MG/2 ML VIAL (J2250) As Ordered ONE; +ONDANSETRON 4MG/2ML VIAL (J2405) As Ordered ONE; +ONDANSETRON 4MG/2ML VIAL (J2405) IV PRN; +PERCOCET 5MG/325MG TAB As Ordered ONE; +PROPOFOL 200 MG/20 ML VIAL As Ordered ONE; +dexameTHASONE 4 MG/ML 1ML VIAL (J1100) As Ordered ONE; +fentaNYL 100 MCG/2 ML INJECTION (J3010) As Ordered ONE; +fentaNYL 100 MCG/2 ML INJECTION (J3010) IV PRN
[2017-04-01] MEDS: PERCOCET 5MG/325MG TAB PO PRN ×2 (15:20→16:15)
--- NOTE | 2017-04-01 15:36 | RO ---
DATE OF PROCEDURE: 04/01/2017 PREPROCEDURE DIAGNOSIS: Right ureteral stone. POSTPROCEDURE DIAGNOSIS: Right ureteral stone. PROCEDURE: Cystoscopy, right ureteroscopy with lithotripsy and basket extraction of stones, right retrograde pyelogram with intraoperative interpretation of images, right ureteral stent exchange. SURGEON: Dr. Devan Rodas CUSTOMER MARKETING INTERN: None. ANESTHESIA: General. OPERATIVE INDICATIONS: This is a 61-year-old male who was brought to the operating room recently for a right extracorporeal shock wave lithotripsy for an obstructing proximal ureteral stone. On followup x-ray his stone did not pass. He was therefore recommended to move out to the operating room today for the above listed procedure. DESCRIPTION OF PROCEDURE: Patient was brought to the operating room, and general anesthesia was induced. Prophylactic antibiotics were infused. He was then placed in the dorsal lithotomy position and prepped and draped in the usual sterile fashion. A rigid cystoscope was inserted into the urethral meatus and advanced into the bladder. Once within the bladder, the previously placed stent was seen, grasped, and then withdrawn until the distal end was seen protruding from the ureteral meatus. I then advanced the wire up the stent up into the collecting system. The stent was the removed leaving the wire in place. I then advanced the ureteral access sheath over the wire into the collecting system and then the stylette was then removed and the wire was secured to the drape to serve as a safety wire. I then went up the ureteral access sheath with a flexible ureteroscope. Within the right proximal ureter approximately at the level of the ureteropelvic junction the 6 mm stone was seen. The stone was then fragmented into small pieces using a 200 micron laser fiber and then all the pieces were removed with the basket. Once I confirmed that all the pieces were gone, I checked the kidney and no additional stones were seen. At this point, a retrograde pyelogram was performed and was negative for hydronephrosis or extravasation. I then withdrew the ureteroscope along with the access sheath and no additional stones were seen in the ureter. At this point, the wire was utilized to advance a #6 Croatian 22-32 cm JJ ureteral stent up the right collecting system. The wire was then removed and there were adequate curls of the stent in the pelvis and in the bladder. The bladder was then emptied of all fluid, and this marked the conclusion of the procedure. The patient was then taken out of the dorsal lithotomy position, awakened from anesthesia and transferred to the recovery room in stable position. ESTIMATED BLOOD LOSS: 0 mL. COMPLICATIONS: None. SPECIMENS: Kidney stone fragments. PLAN: The patient will followup in the clinic in a few weeks for stent removal. HAVEN
--- NOTE | 2017-04-01 15:38 | REP ---
Retrograde ureterogram: Four views. History: Nephrolithiasis. 20 seconds of fluoroscopy time is reported. Findings: A sequence of four last image hold fluoroscopically obtained spot radiographs document unilateral ureteral cannulation, guidewire manipulation, contrast injection, and double pigtail ureteral stent placement. No laterality markers are seen. Signed by Ricardo Horne MD 04/01/2017 03:58 P
[2017-04-01 16:15] VITALS: BP 139/85
== END | disposition home or self-care (01) ==
LOC: M SDC 10:51
PROVIDERS: ATTEND Urology
DX: N20.1 Calculus of ureter (principal); G62.9 Polyneuropathy, unspecified; I10 Essential (primary) hypertension; J44.9 Chronic obstructive pulmonary disease, unspecified; R73.03 Prediabetes; M12.9 Arthropathy, unspecified; J45.909 Unspecified asthma, uncomplicated; R06.83 Snoring; G47.33 Obstructive sleep apnea (adult) (pediatric); F12.90 Cannabis use, unspecified, uncomplicated; Z88.0 Allergy status to penicillin; Z88.5 Allergy status to narcotic agent; Z88.6 Allergy status to analgesic agent; Z91.030 Bee allergy status; Z79.899 Other long term (current) drug therapy; Z79.82 Long term (current) use of aspirin; Z87.891 Personal history of nicotine dependence
CPT/HCPCS: 52356; 76000; 82360; 88300; C1769; C1894; C2617; J1100; J1956; J2250; J2405; J3010; Q9961

== ENCOUNTER → 2017-04-27 | Outpatient (CLI) | payer OTHER ==
[~2017-04-27] MED LIST changes: -CONRAY-60 60% 50ML VIAL (Q9961) As Ordered ONE; -LEVALBUTEROL 1.25 MG/0.5 ML CONCENTRATE NEB As Ordered ONE; -LEVALBUTEROL 1.25 MG/0.5 ML CONCENTRATE NEB INH ONE; -LIDOCAINE 2% INJ 100 MG/5 ML SDV (FOR ANES.) As Ordered ONE; -LR 1,000 ML IV ONE; -LR 1,000 ML IV SCH; -LevoFLOXacin IV 500 MG in APPROPRIATE DILUENT 1 EA IV ONE; -MEPERIDINE INJ 25 MG/ML VIAL (J2175) IV PRN; -METOCLOPRAMIDE INJ 10MG/2ML VIAL (J2765) IV PRN; -MIDAZOLAM INJ 2 MG/2 ML VIAL (J2250) As Ordered ONE; -ONDANSETRON 4MG/2ML VIAL (J2405) As Ordered ONE; -ONDANSETRON 4MG/2ML VIAL (J2405) IV PRN; -PERCOCET 5MG/325MG TAB As Ordered ONE; -PROPOFOL 200 MG/20 ML VIAL As Ordered ONE; -dexameTHASONE 4 MG/ML 1ML VIAL (J1100) As Ordered ONE; -fentaNYL 100 MCG/2 ML INJECTION (J3010) As Ordered ONE; -fentaNYL 100 MCG/2 ML INJECTION (J3010) IV PRN
--- NOTE | 2017-04-28 07:39 | REP ---
Clinical: Lung screening. History smoking. Comparison: 03/13/2011 Technique: Axial low-dose noncontrast images from the thoracic inlet to the upper abdomen using lung screening technique. Findings: The lung crowe are well-aerated and relatively clear/symmetric. Mild chronic-appearing interstitial changes and right middle lobe and lingular fibroatelectatic change are suggested and represent a relatively new finding compared to 2010. No consolidation, significant nodule or mass lesion is appreciated. No pleural effusion/reaction or pneumothorax. Tracheobronchial tree is patent. Mediastinum demonstrates mild atherosclerotic changes of the coronary arteries without cardiomegaly. Stable small right lower posterior diaphragmatic hernia containing omental fat is unchanged. Impression: Lung-RADS category II. Presumed chronic linear fibroatelectatic changes at the lingula and to a lesser extent right middle lobe. Consider annual low-dose CT screening follow-up evaluation. No nodule or suspicious abnormality. Signed by Eduardo Bay MD 04/28/2017 07:31 A
== END ==
LOC: M RAD 10:29
PROVIDERS: ATTEND Internal Medicine Pulmonary Disease
DX: F17.210 Nicotine dependence, cigarettes, uncomplicated (principal)

== ENCOUNTER 2017-06-10 19:34 | Emergency (ER) | payer OTHER ==
[~2017-06-10] VITALS: Ht 177.8 cm; Wt 113.6 kg
[2017-06-10] MEDS ORDERED: NS 1,000 ML IV ONE (20:00)
[2017-06-10] MEDS ORDERED: ONDANSETRON 4MG/2ML VIAL (J2405) IV ONE (20:00)
[2017-06-10 20:22] LABS: BASO # 0.1 10^3/uL (0.0-0.2); EOS # 0.2 10^3/uL (0.0-0.50); EOS % 1.8 % (0.0-3.0); IMMATURE GRANULOCYTE % 0.6 % (0-0); LYMPH # 3.1 10^3/uL (1.5-4.5); LYMPH % 24.7 % (24.0-44.0); MEAN CORPUSCULAR VOLUME 88.4 fl (80.0-96.0); MONO # 0.8 10^3/uL (0.0-0.8); MONO % 6.3 % (0.0-5.0); NEUTROPHILS # 8.2 10^3/uL (1.8-7.7); NEUTROPHILS % 65.6 % (36.0-66.0); PLATELET COUNT, AUTOMATED 459 10^3/uL (150-450); RED CELL DISTRIBUTION WIDTH 13.7 % (11.5-14.5); WHITE BLOOD COUNT 12.5 10^3/uL (4.0-10.0)
[2017-06-10 21:00] LABS: ALBUMIN 4.2 GM/DL (3.2-5.2); ALBUMIN/GLOBULIN RATIO 1.27 (1.00-1.93); ALKALINE PHOSPHATASE 104 U/L (45-117); ALT/SGPT 32 U/L (12-78); ANION GAP 12 MEQ/L (8-16); AST/SGOT 18 U/L (7-37); BILIRUBIN,DIRECT < 0.1 MG/DL (0.0-0.2); BILIRUBIN,TOTAL 0.3 MG/DL (0.2-1.0); BLOOD UREA NITROGEN 17 MG/DL (7-18); CALCIUM LEVEL 9.1 MG/DL (8.8-10.2); CARBON DIOXIDE LEVEL 22 MEQ/L (21-32); CHLORIDE LEVEL 108 MEQ/L (98-107); CREATININE FOR GFR 1.36 MG/DL (0.70-1.30); GLOMERULAR FILTRATION RATE 56.5 (>49); GLUCOSE, FASTING 144 MG/DL (80-110); POTASSIUM SERUM 4.2 MEQ/L (3.5-5.1); SODIUM LEVEL 142 MEQ/L (136-145); TOTAL PROTEIN 7.5 GM/DL (6.4-8.2)
[2017-06-10] MEDS ORDERED: fentaNYL 100 MCG/2 ML INJECTION (J3010) IV ONE (21:00)
[2017-06-10 21:25] VITALS: BP 138/86
== END 2017-06-10 21:41 | disposition home or self-care (01) ==
LOC: M ED 19:34
DX: F10.929 Alcohol use, unspecified with intoxication, unspecified (principal); R06.4 Hyperventilation; E11.9 Type 2 diabetes mellitus without complications; I10 Essential (primary) hypertension; J45.909 Unspecified asthma, uncomplicated; Z79.899 Other long term (current) drug therapy; Z88.5 Allergy status to narcotic agent; Z88.8 Allergy status to other drugs, medicaments and biological substances; Z91.030 Bee allergy status; Z88.0 Allergy status to penicillin
CPT/HCPCS: 80048; 80076; 80320; 80329; 82140; 82550; 82553; 84443; 85025; 94760; 96374; 96375; 99284; J2405; J3010; J3360

== ENCOUNTER → 2017-07-07 | Outpatient (CLI) | payer OTHER ==
[2017-07-07 15:23] LABS: BLOOD UREA NITROGEN 22 MG/DL (7-18); CREATININE FOR GFR 1.18 MG/DL (0.70-1.30); GLOMERULAR FILTRATION RATE > 60.0 (>49)
== END ==
LOC: M WUC 10:31
PROVIDERS: ATTEND Psychiatry & Neurology Neurology
DX: I10 Essential (primary) hypertension (principal)

== ENCOUNTER 2018-02-28 07:34 | Day surgery (SDC) | payer OTHER ==
[2018-02-28] MEDS ORDERED: NS 1,000 ML IV (07:45)
[2018-02-28] MEDS ORDERED: PROPOFOL 200 MG/20 ML VIAL As Ordered (08:14)
[2018-02-28] MEDS ORDERED: MIDAZOLAM INJ 2 MG/2 ML VIAL (J2250) As Ordered (08:25)
== END 2018-02-28 09:20 | disposition home or self-care (01) ==
LOC: M OPP 07:34
DX: K62.5 Hemorrhage of anus and rectum (principal); D12.2 Benign neoplasm of ascending colon; K57.30 Diverticulosis of large intestine without perforation or abscess without bleeding; K64.8 Other hemorrhoids; I10 Essential (primary) hypertension; E78.5 Hyperlipidemia, unspecified; E11.9 Type 2 diabetes mellitus without complications; M62.81 Muscle weakness (generalized); R25.1 Tremor, unspecified; M19.90 Unspecified osteoarthritis, unspecified site; F41.9 Anxiety disorder, unspecified; F32.9 Major depressive disorder, single episode, unspecified; G62.9 Polyneuropathy, unspecified; F43.10 Post-traumatic stress disorder, unspecified; J45.909 Unspecified asthma, uncomplicated; J44.9 Chronic obstructive pulmonary disease, unspecified; G47.8 Other sleep disorders; R53.82 Chronic fatigue, unspecified; G47.30 Sleep apnea, unspecified; R06.83 Snoring; Z87.442 Personal history of urinary calculi; N40.1 Benign prostatic hyperplasia with lower urinary tract symptoms; F12.10 Cannabis abuse, uncomplicated; Z91.030 Bee allergy status; Z88.5 Allergy status to narcotic agent; Z88.8 Allergy status to other drugs, medicaments and biological substances; Z88.0 Allergy status to penicillin; Z79.899 Other long term (current) drug therapy; Z80.9 Family history of malignant neoplasm, unspecified
CPT/HCPCS: 45385

== ENCOUNTER → 2018-12-15 | Outpatient (CLI) | payer MEDICARE, OTHER, SELFPAY ==
[~2018-12-15] MED LIST changes: +ATOR1TAB19 PO; +DIAZ5TAB PO; -DOXY-278 PO; +DOXY-350 PO; -DULO30CA PO; +DULO30CA9 PO; +FLOM0.4C39 PO; +PRIM50TA6 PO; -PROP1TAB29 PO; +PROP20TA72 PO; -PROP40TA PO; +PROP40TA62 PO
--- NOTE | 2018-12-15 12:27 | REP ---
Chest two views HISTORY: COPD Comparison: 02/02/[address] 04/27/2017 The lungs are hyperinflated. The lungs are clear. Small right posterior diaphragmatic hernia is present unchanged compared to the previous study. The heart is normal in size. The pulmonary vasculature is normal in appearance. The bony structure is intact. IMPRESSION: No acute disease. Electronically Signed by Murphy Gonzalez MD 12/15/2018 12:19 P
== END ==
LOC: M SMT 10:27
PROVIDERS: ATTEND Internal Medicine Pulmonary Disease
DX: J44.1 Chronic obstructive pulmonary disease with (acute) exacerbation (principal)

== ENCOUNTER → 2019-01-31 | Outpatient (REF) | payer MEDICARE ==
[~2019-01-31] MED LIST changes: +CELE1CAP7; +DOXY100C37 PO; -DULO1CAP2 PO; -DULO1CAP3 PO; +DULO1CAP5 PO; +DULO1CAP6 PO; +IPRA0.00; +MUCI600T31 PO
== END ==
LOC: M LAB REF 13:03
PROVIDERS: ATTEND Internal Medicine Pulmonary Disease
DX: J44.9 Chronic obstructive pulmonary disease, unspecified (principal)

== ENCOUNTER → 2019-02-14 | Outpatient (CLI) | payer MEDICARE ==
[~2019-02-14] MED LIST changes: -CELE1CAP7; -DOXY100C37 PO; -IPRA0.00; -MUCI600T31 PO
--- NOTE | 2019-02-14 09:17 | REP ---
Clinical: Lung screening. History smoking. Comparison: 04/27/2017 Technique: Axial low-dose noncontrast images from the thoracic inlet to the upper abdomen using lung screening technique. Findings: The lung crowe are well-aerated. No consolidation, significant nodule or mass lesion is appreciated. Scattered scarring again appreciated primarily involving the lingula. No pleural effusion/reaction or pneumothorax. Tracheobronchial tree is patent. Mediastinum demonstrates mild atherosclerotic changes of the coronary arteries without cardiomegaly. Stable right posterior diaphragmatic hernia. Impression: 1. Lung-RADS category II. Chronic stable changes are appreciated including scattered scarring primarily involving the lingula. No significant nodule or suspicious abnormality. Stable appearance to the right posterior diaphragmatic hernia. 2. Management recommendations include annual low-dose CT reevaluation. Electronically Signed by Eduardo Bay MD 02/14/2019 09:09 A
== END ==
LOC: M RAD 08:43
PROVIDERS: ATTEND Internal Medicine Pulmonary Disease
DX: Z12.2 Encounter for screening for malignant neoplasm of respiratory organs (principal); F17.210 Nicotine dependence, cigarettes, uncomplicated

== ENCOUNTER 2019-04-27 11:18 | Emergency (ER) | payer MEDICARE ==
[~2019-04-27] VITALS: Ht 177.8 cm; Wt 118.7 kg
[2019-04-27] MEDS ORDERED: IPRA0.00 (11:31)
[2019-04-27] MEDS ORDERED: CELE1CAP7 (11:31)
[2019-04-27] MEDS ORDERED: MUCI600T31 PO (12:41)
[2019-04-27] MEDS ORDERED: DOXY100C37 PO (12:41)
[2019-04-27 12:48] VITALS: BP 195/121
--- NOTE | 2019-04-27 13:24 | REP ---
CHEST, TWO VIEWS: Two views of the chest are performed and compared to a prior study of 12/15/2018. Eventration of the right hemidiaphragm is stable. There are also stable basilar fibrotic changes. No acute infiltrate is seen. Heart is normal in size. Mediastinal silhouette is unchanged. IMPRESSION: Stable chronic findings without evidence of acute pulmonary disease. Electronically Signed by Dwian Burkett MD 04/28/2019 09:23 A
== END 2019-04-27 12:50 | disposition home or self-care (01) ==
LOC: M ED 11:18
DX: J44.1 Chronic obstructive pulmonary disease with (acute) exacerbation (principal); G62.9 Polyneuropathy, unspecified; I10 Essential (primary) hypertension; F32.9 Major depressive disorder, single episode, unspecified; F41.9 Anxiety disorder, unspecified; E11.9 Type 2 diabetes mellitus without complications; Z88.0 Allergy status to penicillin; Z88.5 Allergy status to narcotic agent; Z88.8 Allergy status to other drugs, medicaments and biological substances; Z91.030 Bee allergy status; Z79.899 Other long term (current) drug therapy

== ENCOUNTER → 2019-05-15 | Outpatient (CLI) | payer MEDICARE ==
[~2019-05-15] MED LIST changes: +CELE1CAP7; +DOXY100C37 PO; +IPRA0.00; +MUCI600T31 PO
[2019-05-15 13:26] LABS: ALBUMIN 3.8 GM/DL (3.2-5.2); BLOOD UREA NITROGEN 26 MG/DL (7-18); CALCIUM LEVEL 9.2 MG/DL (8.8-10.2); CARBON DIOXIDE LEVEL 29 MEQ/L (21-32); CHLORIDE LEVEL 100 MEQ/L (98-107); CREATININE FOR GFR 1.11 MG/DL (0.70-1.30); GLOMERULAR FILTRATION RATE > 60.0 (>49); GLUCOSE, FASTING 184 MG/DL (70-100); MAGNESIUM LEVEL 1.8 MG/DL (1.8-2.4); NT-PRO BNP 20 PG/ML (<125); PHOSPHORUS LEVEL 2.8 MG/DL (2.5-4.9); POTASSIUM SERUM 4.6 MEQ/L (3.5-5.1); SODIUM LEVEL 137 MEQ/L (136-145)
== END ==
LOC: M WUC 10:31
PROVIDERS: ATTEND Internal Medicine Cardiovascular Disease
DX: I11.9 Hypertensive heart disease without heart failure (principal); Z79.899 Other long term (current) drug therapy

== ENCOUNTER 2019-11-24 11:29 | Inpatient (IN) | payer MEDICARE ==
[~2019-11-24] VITALS: Ht 177.8 cm; Wt 117.0 kg
[~2019-11-24 11:29] MED LIST changes: -ASPI81TA26 PO; -HYDR-4571; -IBUP-1022 PO; -MARIJUANA PO; -OXYC1TAB23; -TOBRSUS8 AD
[2019-11-24] MEDS ORDERED: TOBRSUS8 AD (11:48)
[2019-11-24] MEDS ORDERED: HYDR-4571 (11:48)
[2019-11-24] MEDS ORDERED: OXYC1TAB23 (11:48)
[2019-11-24 12:31] LABS: BASO # 0.1 10^3/uL (0.0-0.2); BASO % 0.8 % (0.0-1.0); EOS # 0.3 10^3/uL (0.0-0.5); EOS % 2.8 % (0.0-3.0); HEMATOCRIT 48.2 % (42.0-52.0); HEMOGLOBIN 16.6 g/dl (13.5-17.5); LYMPH # 1.7 10^3/uL (1.5-5.0); LYMPH % 15.4 % (24.0-44.0); MEAN CORPUSCULAR HGB CONC 34.4 g/dl (32.0-36.5); MEAN CORPUSCULAR VOLUME 90.1 fl (80.0-96.0); MONO # 0.7 10^3/uL (0.0-0.8); MONO % 6.6 % (0.0-5.0); NEUTROPHILS # 8.2 10^3/uL (1.5-8.5); NEUTROPHILS % 73.4 % (36.0-66.0); PLATELET COUNT, AUTOMATED 406 10^3/uL (150-450); RED BLOOD COUNT 5.35 10^6/uL (4.30-6.10); WHITE BLOOD COUNT 11.2 10^3/uL (4.0-10.0)
[2019-11-24] MEDS ORDERED: MORPHINE 2 MG/ML 1ML VIAL (J2270) IV ONE (12:45)
[2019-11-24] MEDS ORDERED: ONDANSETRON 4MG/2ML VIAL IV ONE (12:45)
[2019-11-24] MEDS ORDERED: VANCOMYCIN HCL 1,000 MG, VIAL MATE ADAPTER 1 EACH in D5W 250 ML IV ONE (14:00)
[2019-11-24] MEDS ORDERED: ALBUTEROL 90 MCG/ACT 8GM HFA INHALER INH PRN (15:15)
[2019-11-24] MEDS ORDERED: ASPI81TA26 PO (15:28)
[2019-11-24] MEDS ORDERED: MARIJUANA PO (15:30)
[2019-11-24] MEDS ORDERED: NORCO, ANEXSIA 5/325MG TABLET (HYDROcodone/ACETAMINOPHEN) PO PRN (16:15)
[2019-11-24] MEDS ORDERED: KETOROLAC 30 MG/ML 1ML VIAL IV PRN (16:45)
--- NOTE | 2019-11-24 16:52 | HPEPDOC ---
General Date of Admission 11/24/19 Date of Service: November 24, 2019 Chief Complaint The patient is a 63-year-old male admitted with a reason for visit of Ear Infection. Source: Patient History of Present Illness 63 year old male with Diabetes, hypertension, ASH, COPD was sent from ENT Dr Tracy's office for bilateral ear infection going on for 2 weeks. He has been tried on 2 courses of oral antibiotics without resolution. So he was sent to the ED for admission and treatment with IV antibiotics. Patient complains of severe bilateral ear pain more on right. The right ear pain 10/10 in intensity, dull aching in nature with radiation to all around the head and down the face to the chin. He says its trigeminal neuralgia. he had bilateral ear discharge with blood now the discharge has stopped. He reports loss of hearing in the right ear. The left ear he is able to hear a little now could not hear before. He also report left ear pain but not as bad. He also reported weight loss of more than 20 lbs in the past 2 weeks. He has been having fevers and chills at home. Temp as high as 103 at night. He finished his antibiotics 2 days ago and last night he again had severe bilateral ear pain throbbing involving the whole of the head and shooting pain from one side of the face to the other. Home Medications Scheduled Aspirin (Aspirin EC) 81 Mg Tablet.dr, 81 MG PO QHS, (Reported) Atorvastatin Calcium (Atorvastatin Calcium) 10 Mg Tab, 10 MG PO DAILY, (Reported) Budesonide/Formoterol (Symbicort 160-4.5 Mcg Inhaler) 60 Puff/Inhaler Aers, 2 PUFF INH BID, (Reported) Celecoxib (Celecoxib) 100 Mg Capsule, 100 MG PO BID, (Reported) Doxycycline Monohydrate (Doxycycline Monohydrate) 100 Mg Capsule, 100 MG PO Q12H Duloxetine Hcl (Duloxetine HCl) 30 Mg Cap, 30 MG PO BID, (Reported) Propranolol HCl (Propranolol HCl) 20 Mg Tab, 20 MG PO BID, (Reported) Tamsulosin HCl (Flomax) 0.4 Mg Cap, 0.4 MG PO DAILY, (Reported) Tobramycin/Dexamethasone (Tobramycin-Dexameth Ophth Susp) 5 Ml Drops.susp, 1 DROP AD BID, (Reported) NEW MED, REPLACING CIPRODEX OTIC Umeclidinium [place] (Incruse Ellipta) 62.5 Mcg/Inh Inh, 62.5 MCG INH DAILY, (Reported) [Marijuana] , 1 DOSE PO DAILY, (Reported) PT STATES TAKES "GREEN DRAGON" (RECIPE) FOR PAIN Scheduled PRN Albuterol Sulfate (Ventolin Hfa) 200 Puff/8 Gm Aers, 2 PUFF INH QID PRN for SHORTNESS OF BREATH, (Reported) Epinephrine (Epipen 2-Shashi) 0.3 Mg/0.3 Ml Inj, 0.3 MG INJ ASDIRECTED PRN for ANAPHYLAXIS, (Reported) Miscellaneous Medications Hydrocodone/Acetaminophen (Hydrocodone-Acetamin 5-325 mg) 1 Each Tablet, (Reported) NEW ORDER Ipratropium/Albuterol Sulfate (Iprat-Albut 0.5-3(2.5) mg/3 ml) 3 Ml Ampul.neb, (Reported) Allergies Coded Allergies: Penicillins (Verified Allergy, Unknown, 04/27/19) bee venom protein (honey bee) (Verified Allergy, Unknown, 04/27/19) codeine (Verified Allergy, Unknown, 04/27/19) ibuprofen (Verified Allergy, Unknown, 04/27/19) Past Medical History Medical History Swimmers ear with recurrent infections but not one in 10 years. COPD/asthma, follows with Dr. Chou [facility]. ASH on CPAP Obesity Hypertension Diabetes Diet controlled Renal calculi, s/p right lithotripsy and basket extraction in 2017 Peripheral neuropathy with Paresthesias, feelings of tremulous, abnormal EMG. Right posterior diaphragmatic hernia. Situational anxiety Depression Generalized muscle weakness Surgical History Umbilical hernia repair times two. Bilateral umbilical hernia repair as a child. Carpal tunnel release in 1991, Dr. Griffin. Lower lip lesion removed in 1977. Trigger finger release of right hand. Family History FATHER: MOTHER: 2DAUGHTER(S) . 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 Dyspnea, Lt Headedness Gastrointestinal: Denies: Nausea, Vomiting, Abdominal Pain, Diarrhea Genitourinary: Denies: Dysuria, Frequency, Incontinence, Retention Hematologic: Denies: Bruising, Bleeding Excessively Musculoskeletal: Reports: Leg Pain; Denies: Neck Pain, Back Pain, Joint Pain, Muscle Pain, Spasms Neurological: Reports: Numbness Physical Examination General Exam: Positive: Alert, Cooperative, No Acute Distress Eye Exam: Positive: PERRLA, Conjunctiva & lids normal, EOMI; Negative: Sclera icteric ENT Exam: Positive: Atraumatic, Mucous membr. moist/pink, Pharynx Normal Neck Exam: Positive: Supple; Negative: JVD, thyromegaly Chest Exam: Positive: Clear to auscultation, Normal air movement Heart Exam: Positive: Rate Normal, Regular Rhythm, Normal S1, Normal S2, Murmurs; Negative: Rubs Abdomen Exam: Positive: Normal bowel sounds, Soft; Negative: Tenderness, Hepatospenomegaly Extremity Exam: Positive: Normal pulses; Negative: Clubbing, Cyanosis, Edema Skin Exam: Positive: Nl turgor and temperature, Lesion (Large port wne stin int eh back); Negative: Breakdown Vital Signs Vital Signs Date Time Temp Pulse Resp B/P (MAP) Pulse Ox O2 Delivery O2 Flow Rate FiO2 11/24/19 13:13 87 20 138/92 95 Room Air 11/24/19 11:31 97.5 Laboratory Data Labs 24H Laboratory Tests 2 11/24/19 12:18: Immature Granulocyte % (Auto) 1.0, Neutrophils (%) (Auto) 73.4H, Lymphocytes (%) (Auto) 15.4L, Monocytes (%) (Auto) 6.6H, Eosinophils (%) (Auto) 2.8, Basophils (%) (Auto) 0.8, Neutrophils # (Auto) 8.2, Lymphocytes # (Auto) 1.7, Monocytes # (Auto) 0.7, Eosinophils # (Auto) 0.3, Basophils # (Auto) 0.1, Nucleated Red Blood Cells % (auto) 0.0 11/24/19 12:19: POC Glucose (Misc Panel) 187H, POC Sodium (Misc Panel) 138, POC Potassium (Misc Panel) 5.5H, POC Chloride (Misc Panel) 106, POC Total CO2 (Misc Panel) 25.0, POC Blood Urea Nitrogen (Misc Panel 26, POC Ionized Calcium (Misc Panel) 4.3L, POC Creatinine (Misc Panel) 1.0, POC Hematocrit (Misc Panel) 49.0 CBC/BMP Laboratory Tests 11/24/19 12:18 11/24/19 13:09 Assessment/Plan 63 year old male with Diabetes, hypertension, ASH, COPD was sent from ENT Dr Tracy's office for Right ear infection going on for 2 weeks. He has been tried on 2 courses of oral antibiotics without resolution. SO he was sent to the ED for admission and treatment with IV antibiotics. Bilateral acute otitis Media. cultures have been sent start on vancomycin. continue ear drop morphine, torarol, tylenol and oxycodone Hypertension continue home meds propanolol Diabetes with neuropathy diet controlled continue cymbalta ASH continue own CPAP COPD/Asthma albuterol prn continue symbicort, spiriva in place of incruse. H/O kidney stones continue flomax Hyperlpidemia continue statin Neuropathy large and small fibre and poly neuropathy with atrophy of leg muscles and chronic progressive weakness. has difficulty in ambulation. Plan / VTE VTE Prophylaxis Ordered?: Yes OBEY MILNER MD November 24, 2019 15:04
[2019-11-24 17:35] VITALS: BP 171/100
[2019-11-24 17:45] VITALS: BP 124/88
[2019-11-24] MEDS: oxyCODONE 5MG TAB PO PRN ×2 (18:05→22:02)
[2019-11-24] MEDS: SYMBICORT 160/4.5MCG INHALER 6GM INH SCH (19:47)
[2019-11-24 20:05] VITALS: BP 123/80
[2019-11-24] MEDS: DULoxetine 30 MG CAP (CYMBALTA) PO SCH (20:16)
[2019-11-24] MEDS: CelecoXIB (CeleBREX) 100 MG CAP PO SCH (20:16)
[2019-11-24] MEDS: PROPRANOLOL 20 MG TAB PO SCH (20:17)
[2019-11-24] MEDS: TOBRADEX OPHTH SUSP 2.5 ML XX SCH (20:17)
[2019-11-24] MEDS: ASPIRIN 81 MG ENTERIC TAB PO SCH (20:17)
[2019-11-24] MEDS: MORPHINE 2 MG/ML 1ML VIAL (J2270) IV PRN (20:18)
[2019-11-24] MEDS: VANCOMYCIN HCL 1,000 MG, VIAL MATE ADAPTER 1 EACH in D5W 250 ML IV SCH (20:18)
[2019-11-24] MEDS ORDERED: CelecoXIB (CeleBREX) 100 MG CAP PO SCH (21:00)
[2019-11-24] MEDS: ACETAMINOPHEN 500 MG TAB PO PRN (22:00)
[2019-11-25] MEDS: MORPHINE 2 MG/ML 1ML VIAL (J2270) IV PRN ×3 (01:51→18:03)
[2019-11-25] MEDS: VANCOMYCIN HCL 1,000 MG, VIAL MATE ADAPTER 1 EACH in D5W 250 ML IV SCH ×3 (05:42→20:55)
[2019-11-25] MEDS: oxyCODONE 5MG TAB PO PRN ×3 (05:43→20:56)
[2019-11-25] MEDS: ACETAMINOPHEN 500 MG TAB PO PRN ×2 (05:43→20:57)
[2019-11-25 05:53] VITALS: BP 140/89
[2019-11-25] MEDS: TIOTROPIUM INHALER/CAPSULE (SPIRIVA) INH SCH (07:39)
[2019-11-25] MEDS: ENOXAPARIN 40MG/0.4ML SYRINGE (J1650 PER 10MG) SC SCH (08:41)
[2019-11-25] MEDS: PROPRANOLOL 20 MG TAB PO SCH ×2 (08:42→20:56)
[2019-11-25] MEDS: TAMSULOSIN 0.4 MG CAP PO SCH (08:42)
[2019-11-25] MEDS: ATORVASTATIN 10 MG TAB PO SCH (08:42)
[2019-11-25] MEDS: CelecoXIB (CeleBREX) 100 MG CAP PO SCH ×2 (08:42→20:55)
[2019-11-25] MEDS: DULoxetine 30 MG CAP (CYMBALTA) PO SCH ×2 (08:42→20:55)
[2019-11-25] MEDS: TOBRADEX OPHTH SUSP 2.5 ML XX SCH ×2 (08:43→20:57)
[2019-11-25] MEDS: SYMBICORT 160/4.5MCG INHALER 6GM INH SCH ×2 (09:00→19:54)
--- NOTE | 2019-11-25 12:21 | IPNPDOC ---
Subjective Date Seen The patient was seen on 11/25/19. Subjective Chief Complaint/HPI Feels a little better, no fever overnight. Earache is better controlled. No discharge from the ears. Did not have any neuralgic shooting pain last night. But does complain of swellling of the neck just below the ears and feeling of enlarged glands. He also complained of insomnia. Objective Physical Examination General Exam: Positive: Alert, Cooperative, No Acute Distress Eye Exam: Positive: PERRLA, Conjunctiva & lids normal, EOMI; Negative: Sclera icteric ENT Exam: Positive: Atraumatic, Mucous membr. moist/pink, Pharynx Normal, Other ENT (some enlargement of cervical lymph nodes. no swelling in the neck noted. ) Neck Exam: Positive: Supple; Negative: JVD, thyromegaly Chest Exam: Positive: Clear to auscultation, Normal air movement Heart Exam: Positive: Rate Normal, Regular Rhythm, Normal S1, Normal S2, Murmurs; Negative: Rubs Abdomen Exam: Positive: Normal bowel sounds, Soft; Negative: Tenderness, Hepatospenomegaly Extremity Exam: Positive: Normal pulses; Negative: Clubbing, Cyanosis, Edema Skin Exam: Positive: Nl turgor and temperature, Lesion (Large port wne stin int eh back); Negative: Breakdown Assessment /Plan Assessment 63 year old male with Diabetes, hypertension, ASH, COPD was sent from ENT Dr Tracy's office for Right ear infection going on for 2 weeks. He has been tried on 2 courses of oral antibiotics without resolution. So he was sent to the ED for admission and treatment with IV antibiotics. Bilateral acute otitis Media. did not respond to 2 oral courses of antibiotics. cultures have been sent from ENT office pending. started on vancomycin. continue ear drops morphine, torarol, tylenol and oxycodone ENT follow up Hypertension continue home meds propanolol Diabetes with neuropathy diet controlled continue cymbalta ASH continue own CPAP COPD/Asthma albuterol prn continue symbicort, spiriva in place of incruse. H/O kidney stones continue flomax Hyperlpidemia continue statin Neuropathy large and small fibre and poly neuropathy with atrophy of leg muscles and chronic progressive weakness for 5 years has difficulty in ambulation. Plan/VTE VTE Prophylaxis Ordered?: Yes VS, I&O, 24H, Fishbone Vital Signs/I&O Vital Signs Date Time Temp Pulse Resp B/P (MAP) Pulse Ox O2 Delivery O2 Flow Rate FiO2 11/25/19 06:13 16 11/25/19 05:53 97.5 78 140/89 (106) 94 Room Air I&O- Last 24 Hours up to 6 AM 11/25/19 06:00 Intake Total 1440 ml Output Total 100 ml Balance 1340 ml Laboratory Data 24H LABS Laboratory Tests 2 11/24/19 12:18: Immature Granulocyte % (Auto) 1.0, Neutrophils (%) (Auto) 73.4H, Lymphocytes (%) (Auto) 15.4L, Monocytes (%) (Auto) 6.6H, Eosinophils (%) (Auto) 2.8, Basophils (%) (Auto) 0.8, Neutrophils # (Auto) 8.2, Lymphocytes # (Auto) 1.7, Monocytes # (Auto) 0.7, Eosinophils # (Auto) 0.3, Basophils # (Auto) 0.1, Nucleated Red Blood Cells % (auto) 0.0 11/24/19 12:19: POC Glucose (Misc Panel) 187H, POC Sodium (Misc Panel) 138, POC Potassium (Misc Panel) 5.5H, POC Chloride (Misc Panel) 106, POC Total CO2 (Misc Panel) 25.0, POC Blood Urea Nitrogen (Misc Panel 26, POC Ionized Calcium (Misc Panel) 4.3L, POC Creatinine (Misc Panel) 1.0, POC Hematocrit (Misc Panel) 49.0 11/24/19 16:06: Coronavirus (COVID-19)(PCR) NEGATIVE CBC/BMP Laboratory Tests 11/24/19 12:18 11/24/19 13:09 OBEY MILNER MD November 25, 2019 07:45
[2019-11-25 14:00] VITALS: BP 133/74
[2019-11-25] MEDS: ASPIRIN 81 MG ENTERIC TAB PO SCH (20:56)
[2019-11-25] MEDS: RAMELTEON 8 MG TAB (ROZEREM) PO PRN (20:56)
[2019-11-25 22:00] VITALS: BP 138/82
[2019-11-26] MEDS: VANCOMYCIN HCL 1,000 MG, VIAL MATE ADAPTER 1 EACH in D5W 250 ML IV SCH ×3 (05:38→21:15)
[2019-11-26] MEDS: oxyCODONE 5MG TAB PO PRN (05:39)
[2019-11-26 06:00] VITALS: BP 130/78
[2019-11-26] MEDS: SYMBICORT 160/4.5MCG INHALER 6GM INH SCH ×2 (07:28→19:57)
[2019-11-26] MEDS: TIOTROPIUM INHALER/CAPSULE (SPIRIVA) INH SCH (07:28)
[2019-11-26] MEDS: TAMSULOSIN 0.4 MG CAP PO SCH (08:44)
[2019-11-26] MEDS: ENOXAPARIN 40MG/0.4ML SYRINGE (J1650 PER 10MG) SC SCH (08:45)
[2019-11-26] MEDS: CelecoXIB (CeleBREX) 100 MG CAP PO SCH (08:45)
[2019-11-26] MEDS: DULoxetine 30 MG CAP (CYMBALTA) PO SCH ×2 (08:46→21:12)
[2019-11-26] MEDS: MORPHINE 2 MG/ML 1ML VIAL (J2270) IV PRN (08:46)
[2019-11-26] MEDS: ATORVASTATIN 10 MG TAB PO SCH (08:47)
[2019-11-26] MEDS: PROPRANOLOL 20 MG TAB PO SCH ×2 (08:52→21:14)
[2019-11-26] MEDS: TOBRADEX OPHTH SUSP 2.5 ML XX SCH ×2 (08:53→21:16)
[2019-11-26 09:23] LABS: BASO # 0.1 10^3/uL (0.0-0.2); BASO % 1.1 % (0.0-1.0); EOS # 0.3 10^3/uL (0.0-0.5); EOS % 3.7 % (0.0-3.0); HEMOGLOBIN 14.8 g/dl (13.5-17.5); LYMPH # 1.5 10^3/uL (1.5-5.0); LYMPH % 16.6 % (24.0-44.0); MEAN CORPUSCULAR HEMOGLOBIN 29.9 pg (27.0-33.0); MEAN CORPUSCULAR HGB CONC 33.6 g/dl (32.0-36.5); MEAN CORPUSCULAR VOLUME 88.9 fl (80.0-96.0); MONO # 0.7 10^3/uL (0.0-0.8); MONO % 7.5 % (0.0-5.0); NEUTROPHILS # 6.5 10^3/uL (1.5-8.5); NEUTROPHILS % 70.4 % (36.0-66.0); PLATELET COUNT, AUTOMATED 382 10^3/uL (150-450); RED BLOOD COUNT 4.95 10^6/uL (4.30-6.10); WHITE BLOOD COUNT 9.2 10^3/uL (4.0-10.0)
[2019-11-26 09:43] LABS: BLOOD UREA NITROGEN 16 MG/DL (7-18); CALCIUM LEVEL 8.4 MG/DL (8.8-10.2); CARBON DIOXIDE LEVEL 28 MEQ/L (21-32); CHLORIDE LEVEL 105 MEQ/L (98-107); CREATININE FOR GFR 0.94 MG/DL (0.70-1.30); GLOMERULAR FILTRATION RATE > 60.0 (>49); GLUCOSE, FASTING 168 MG/DL (70-100); POTASSIUM SERUM 4.2 MEQ/L (3.5-5.1); SODIUM LEVEL 137 MEQ/L (136-145)
[2019-11-26] MEDS ORDERED: MORPHINE 2 MG/ML 1ML VIAL (J2270) IV PRN (10:15)
[2019-11-26] MEDS: MORPHINE 15 MG SA TAB PO SCH ×2 (11:33→21:13)
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
[2019-11-26] MEDS: KETOROLAC 30 MG/ML 1ML VIAL IV SCH ×3 (12:36→23:28)
[2019-11-26 14:00] VITALS: BP 124/64
[2019-11-26] MEDS: RAMELTEON 8 MG TAB (ROZEREM) PO PRN (21:12)
[2019-11-26] MEDS: ASPIRIN 81 MG ENTERIC TAB PO SCH (21:13)
[2019-11-26 22:00] VITALS: BP 149/86
[2019-11-26] MEDS ORDERED: IPRATROPIUM 0.5MG/ALBUTEROL 2.5MG INH SOL UD 3ML (DUONEB)(J7620) NEB PRN (23:00)
[2019-11-27] MEDS: VANCOMYCIN HCL 1,000 MG, VIAL MATE ADAPTER 1 EACH in D5W 250 ML IV SCH (05:52)
[2019-11-27] MEDS: KETOROLAC 30 MG/ML 1ML VIAL IV SCH ×2 (05:53→11:57)
[2019-11-27 06:00] VITALS: BP 136/74
[2019-11-27] MEDS: SYMBICORT 160/4.5MCG INHALER 6GM INH SCH (07:25)
[2019-11-27 08:15] VITALS: BP 136/74
[2019-11-27] MEDS: DULoxetine 30 MG CAP (CYMBALTA) PO SCH (08:15)
[2019-11-27] MEDS: ATORVASTATIN 10 MG TAB PO SCH (08:15)
[2019-11-27] MEDS: MORPHINE 15 MG SA TAB PO SCH (08:15)
[2019-11-27] MEDS: PROPRANOLOL 20 MG TAB PO SCH (08:15)
[2019-11-27] MEDS: TAMSULOSIN 0.4 MG CAP PO SCH (08:16)
[2019-11-27] MEDS: ENOXAPARIN 40MG/0.4ML SYRINGE (J1650 PER 10MG) SC SCH (08:16)
[2019-11-27] MEDS: TOBRADEX OPHTH SUSP 2.5 ML XX SCH (08:16)
[2019-11-27] MEDS ORDERED: INCRUSE INH SCH (09:00)
[2019-11-27] MEDS ORDERED: ONDANSETRON 4MG/2ML VIAL IV PRN (11:00)
[2019-11-27] MEDS ORDERED: VANCOMYCIN HCL 750 MG, VIAL MATE ADAPTER 1 EACH in D5W 250 ML IV SCH (13:00)
[2019-11-27] MEDS ORDERED: IBUP-1022 PO (13:34)
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
== END 2019-11-27 15:25 | disposition home or self-care (01) | DRG 153 ==
LOC: M ED 11:29 → M ED INP 14:57 → ENRESERV 15:42 → M MS5PR 17:25
PROVIDERS: ADMIT Internal Medicine Nephrology; ATTEND Internal Medicine Nephrology
DX: H66.93 Otitis media, unspecified, bilateral (principal); J44.9 Chronic obstructive pulmonary disease, unspecified; G47.33 Obstructive sleep apnea (adult) (pediatric); I10 Essential (primary) hypertension; E11.42 Type 2 diabetes mellitus with diabetic polyneuropathy; F41.8 Other specified anxiety disorders; F32.9 Major depressive disorder, single episode, unspecified; M62.81 Muscle weakness (generalized); Z87.442 Personal history of urinary calculi; E66.9 Obesity, unspecified; Z88.0 Allergy status to penicillin; Z88.5 Allergy status to narcotic agent; Z88.6 Allergy status to analgesic agent; Z91.013 Allergy to seafood; Z79.82 Long term (current) use of aspirin; Z79.899 Other long term (current) drug therapy; E78.5 Hyperlipidemia, unspecified; F43.10 Post-traumatic stress disorder, unspecified; Z62.819 Personal history of unspecified abuse in childhood; H92.03 Otalgia, bilateral

== ENCOUNTER → 2019-11-24 | Outpatient (REF) | payer MEDICARE ==
[~2019-11-24] MED LIST changes: +ASPI81TA26 PO; -CELE1CAP7; +CELE1CAP7 PO; +HYDR-4571; +IBUP-1022 PO; +MARIJUANA PO; +OXYC1TAB23; +TOBRSUS8 AD
== END ==
LOC: M LAB REF 15:11
PROVIDERS: ATTEND Otolaryngology
DX: H60.93 Unspecified otitis externa, bilateral (principal)

== ENCOUNTER → 2020-04-02 | Outpatient (CLI) | payer MEDICARE ==
[~2020-04-02] MED LIST changes: +ACET650T61 PO; +ASPI81TA26 PO; -ASPI81TA85 PO; +ASPI81TA86 PO; +HYDR-4571; +IBUP-1022 PO; +MARIJUANA PO; +OXYC1TAB23; +TOBRSUS8 AD; -TYLE650T35 PO
--- NOTE | 2020-04-19 09:22 | REP ---
CT CHEST WITHOUT CONTRAST: LOW-DOSE SCREENING EXAM HISTORY: Personal history of nicotine dependence. COMPARISON: Chest CT study 02/14/2019 and 04/27/2017. There is also a prior chest CT study from 02/2011. CT FINDINGS: Preliminary digital overseamer radiograph is unremarkable. A posterior diaphragmatic hernia is again seen transmitting fat at the right posterior pleural angle. This was present previously and is unchanged from the recent prior studies. It is slightly larger than on 2011 study. There is mild bibasilar linear fibrosis. There are two granulomatous calcifications in the right base, one in the lower lobe and one in the middle lobe, unchanged from prior studies as well. No pulmonary mass or significant pulmonary nodule is seen. No infiltrate is seen. No evidence of effusion. Some vascular calcifications seen. IMPRESSION: Stable lung-RADS Category 2 benign findings. Repeat screening study suggested in one year. MTDD
== END ==
LOC: M RAD 09:43
PROVIDERS: ATTEND Internal Medicine Pulmonary Disease
DX: Z87.891 Personal history of nicotine dependence (principal)

== ENCOUNTER 2020-04-30 11:00 | Emergency (ER) | payer MEDICARE ==
[~2020-04-30] VITALS: Ht 177.8 cm; Wt 114.0 kg
[2020-04-30 12:17] LABS: BASO # 0.1 10^3/uL (0.0-0.2); BASO % 0.8 % (0.0-1.0); EOS # 0.2 10^3/uL (0.0-0.5); EOS % 1.9 % (0.0-3.0); HEMATOCRIT 48.8 % (42.0-52.0); HEMOGLOBIN 16.1 g/dl (13.5-17.5); LYMPH # 1.7 10^3/uL (1.5-5.0); LYMPH % 14.3 % (24.0-44.0); MEAN CORPUSCULAR HEMOGLOBIN 29.5 pg (27.0-33.0); MEAN CORPUSCULAR VOLUME 89.5 fl (80.0-96.0); MONO # 0.8 10^3/uL (0.0-0.8); MONO % 6.8 % (0.0-5.0); NEUTROPHILS % 75.8 % (36.0-66.0); PLATELET COUNT, AUTOMATED 360 10^3/uL (150-450); RED BLOOD COUNT 5.45 10^6/uL (4.30-6.10); WHITE BLOOD COUNT 11.9 10^3/uL (4.0-10.0)
--- NOTE | 2020-04-30 12:35 | REPVR ---
PROCEDURE INFORMATION: Exam: US Soft Tissue Head and Neck, Thyroid Exam date and time: 04/30/2020 12:24 PM Age: 64 years old Clinical indication: Dysphagia / difficulty swallowing; Additional info: Nodule, rapid weight loss, dysphagia TECHNIQUE: Imaging protocol: Real-time ultrasound scan of the neck with image documentation. Exam focused on the thyroid. COMPARISON: No relevant prior studies available. FINDINGS: Evaluation is limited due to patient body habitus. Right thyroid lobe: Right lobe measures 3.5 x 1.5 x 1.4 cm. No dominant solid or cystic thyroid nodule. Left thyroid lobe: Left lobe measures 4.0 x 1.5 x 1.4 cm. No dominant solid or cystic thyroid nodule. Isthmus: Isthmus measures 4 mm in AP dimension. IMPRESSION: Unremarkable sonographic evaluation of the thyroid. Electronically signed by: Joon Jolley On 04/30/2020 12:35:07 PM
[2020-04-30 12:56] LABS: ALT/SGPT 29 U/L (12-78); BILIRUBIN,TOTAL 0.7 MG/DL (0.2-1.0); BLOOD UREA NITROGEN 20 MG/DL (7-18); CALCIUM LEVEL 9.5 MG/DL (8.8-10.2); CARBON DIOXIDE LEVEL 25 MEQ/L (21-32); CHLORIDE LEVEL 106 MEQ/L (98-107); CREATININE FOR GFR 1.02 MG/DL (0.70-1.30); FREE T4 1.09 NG/DL (0.76-1.46); GLOMERULAR FILTRATION RATE > 60.0 (>49); GLUCOSE, FASTING 188 MG/DL (70-100); POTASSIUM SERUM 4.7 MEQ/L (3.5-5.1); SODIUM LEVEL 138 MEQ/L (136-145); THYROGLOBULIN ANTIBODY < 15.0 U/ML (<60.0); THYROID PEROXIDASE ANTIBODY 31.2 U/ML (<60.0); TOTAL PROTEIN 7.8 GM/DL (6.4-8.2); TOTAL T3 97.8 NG/DL (60.0-181.0)
[2020-04-30] MEDS ORDERED: ISOVUE-370 76% 100ML VIAL As Ordered ONE (13:08)
--- NOTE | 2020-04-30 14:14 | REPVR ---
PROCEDURE INFORMATION: Exam: CT Neck With Contrast Exam date and time: 04/30/2020 1:29 PM Age: 64 years old Clinical indication: Neck pain; Additional info: Nodule in neck, dysphagia, weight loss TECHNIQUE: Imaging protocol: Computed tomography images of the neck with intravenous contrast. Radiation optimization: All CT scans at this facility use at least one of these dose optimization techniques: automated exposure control; mA and/or kV adjustment per patient size (includes targeted exams where dose is matched to clinical indication); or iterative reconstruction. Contrast material: ISOVUE 370; Contrast volume: 100 ml; Contrast route: INTRAVENOUS (IV); COMPARISON: 1. US Thyroid 04/30/20 2. 20 12:18 PM FINDINGS: Nasopharynx: Unremarkable. Oropharynx: Unremarkable. No significant tonsillar enlargement. Hypopharynx: Unremarkable. Larynx: Unremarkable. Normal epiglottis. Retropharyngeal space: Unremarkable. Submandibular/Parotid glands: Normal. Glands are normal in size. Thyroid: There is no thyroid enlargement or thyroid nodule. Lymph nodes: There are no enlarged upper mediastinal or cervical lymph nodes. Trachea: Visualized trachea is unremarkable. Lungs: There are small lucencies in bilateral pulmonary apices related to COPD and emphysematous change. Esophagus: No gross abnormality of visualized upper esophagus although CT has limitations in evaluation of esophagus and consider endoscopy as appropriate with patient's clinical symptoms. Bones/joints: There are degenerative changes with small disc osteophyte complexes in cervical spine. Vasculature: There is atherosclerotic change. There is prominent calcification at right carotid bulb and bifurcation which likely narrows the distal common carotid artery and internal carotid artery proximally although evaluation is limited by the degree of calcification. There is mild calcification of left carotid bifurcation without carotid stenosis. Bilateral vertebral arteries are patent. There is calcification in intracranial internal carotid arteries. Soft tissues: See "Vasculature" finding. IMPRESSION: 1. No evidence of mass or abnormal adenopathy. 2. Limited evaluation of esophagus on CT and recommend endoscopy as clinically appropriate. 3. COPD. Electronically signed by: Rosalinda Cantu On 04/30/2020 14:13:44 PM
--- NOTE | 2020-04-30 14:48 | ED PDOC ---
Post-Departure Follow-Up dr anglin faxed formal report of ct neck for fu Landen Mathias MD Apr 30, 2020 14:48
[2020-04-30 14:58] VITALS: BP 143/85
== END 2020-04-30 15:01 | disposition home or self-care (01) ==
LOC: M ED 11:00
DX: R07.0 Pain in throat (principal); R13.10 Dysphagia, unspecified; R22.1 Localized swelling, mass and lump, neck; R05 Cough; H66.91 Otitis media, unspecified, right ear; E11.9 Type 2 diabetes mellitus without complications; J44.9 Chronic obstructive pulmonary disease, unspecified; K21.9 Gastro-esophageal reflux disease without esophagitis; M54.9 Dorsalgia, unspecified; G62.9 Polyneuropathy, unspecified; F41.9 Anxiety disorder, unspecified; Z87.891 Personal history of nicotine dependence; Z88.0 Allergy status to penicillin; Z88.5 Allergy status to narcotic agent; Z88.6 Allergy status to analgesic agent; Z91.030 Bee allergy status; Z79.899 Other long term (current) drug therapy; Z79.51 Long term (current) use of inhaled steroids; Z79.82 Long term (current) use of aspirin
CPT/HCPCS: 36415; 70491; 76536; 80053; 84439; 84443; 84480; 85025; 86376; 86800; 99284; Q9967

== ENCOUNTER → 2020-05-22 | Outpatient (CLI) | payer MEDICARE ==
[~2020-05-22] MED LIST changes: +E-Z-GAS II EFFERVESCENT PACKET (SODIUM BICARB./CITRIC ACID/SIMETHICONE) As Ordered ONE; +E-Z-HD 98% w/w 340GM SUSP BTL As Ordered ONE; +E-Z-PAQUE 96% w/w SUSP 176GM BTL As Ordered ONE
--- NOTE | 2020-05-22 17:18 | REP ---
INDICATION: DYSPHAGIA FILE ROOM. COMPARISON: None. TECHNIQUE: This procedure was performed under the direct supervision of . Images were reviewed with . A single view PA chest x-ray is submitted as a pot fireman film. There is no change compared with previous chest x-ray performed on 04/27/2019. Liquid barium and gas producing granules were given in the erect position as well as liquid barium in the prone oblique positions in order to perform a double contrast esophagram examination. FINDINGS: The oral and pharyngeal stages of deglutition are unremarkable. Esophageal transport is prompt and efficient and there is no esophagitis, stricture, mucosal ring or hiatal hernia. Gastroesophageal reflux is not demonstrated on this examination. IMPRESSION: Essentially unremarkable esophagram examination. 0.9 minutes of fluoro time was utilized for this procedure. <Electronically signed by Jm Carl > 05/22/20 1706 <Electronically signed by Dwain Burkett > 05/22/20 0082
== END ==
LOC: M RAD 08:12
PROVIDERS: ATTEND Internal Medicine Gastroenterology
DX: R30.0 Dysuria (principal)

== ENCOUNTER → 2020-06-22 | Outpatient (CLI) | payer MEDICARE ==
[~2020-06-22] MED LIST changes: -E-Z-GAS II EFFERVESCENT PACKET (SODIUM BICARB./CITRIC ACID/SIMETHICONE) As Ordered ONE; -E-Z-HD 98% w/w 340GM SUSP BTL As Ordered ONE; -E-Z-PAQUE 96% w/w SUSP 176GM BTL As Ordered ONE; +OMEP40CA97 PO; +VENTAER INH
== END ==
LOC: M LABSMTC 12:57
PROVIDERS: ATTEND Anesthesiology
DX: Z01.812 Encounter for preprocedural laboratory examination (principal); Z20.828 Contact with and (suspected) exposure to other viral communicable diseases

== ENCOUNTER 2020-06-27 12:27 | Day surgery (SDC) | payer MEDICARE ==
[~2020-06-27] VITALS: Ht 177.8 cm; Wt 112.0 kg
[~2020-06-27 12:27] MED LIST changes: +NS 1,000 ML IV ONE
--- NOTE | 2020-06-27 14:16 | ROOR ---
Patient Name: Corey Jang Procedure Date: 06/27/2020 1:57 PM Date of : 1955 Age: 64 Room: [facility] Gender: Male Note Status: Finalized Procedure: Upper GI endoscopy Indications: Oral phase dysphagia, Oropharyngeal phase dysphagia Providers: Corey ADAME MD Referring MD: Chas Louise MD Requesting Provider: Medicines: Monitored Anesthesia Care Complications: No immediate complications. Procedure: Pre-Anesthesia Assessment: - The heart rate, respiratory rate, oxygen saturations, blood pressure, adequacy of pulmonary ventilation, and response to care were monitored throughout the procedure. The Endoscope was introduced through the mouth, and advanced to the second part of duodenum. The upper GI endoscopy was accomplished without difficulty. The patient tolerated the procedure well. Findings: The esophagus was normal. The stomach was normal. The examined duodenum was normal. No endoscopic abnormality was evident in the esophagus to explain the patient's complaint of dysphagia. It was decided, however, to proceed with dilation at the cricopharyngeus and of the entire esophagus. The scope was withdrawn. Dilation was performed with a Wilkins dilator with no resistance at 54 Fr. The dilation site was examined and showed no change. Thrush was found diffusely, throughout the larynx, on the epiglottis and at the glottis. Impression: - Normal esophagus. - Normal stomach. - Normal examined duodenum. - No endoscopic esophageal abnormality to explain patient's dysphagia. Esophagus dilated. Dilated. - Mild thrush was visualized diffusely, throughout the larynx, on the epiglottis and at the glottis. - No specimens collected. Recommendation: - Observe patient's clinical course. - I anticipate no further need for intervention. - Nystatin suspension 100,000 units PO QID for 10 days. - (the script was sent to your pharmacy on file) Procedure Code(s): --- Professional --- 70629, Esophagogastroduodenoscopy, flexible, transoral; diagnostic, including collection of specimen(s) by brushing or washing, when performed (separate procedure) 42532, Dilation of esophagus, by unguided sound or bougie, single or multiple passes Diagnosis Code(s): --- Professional --- B37.0, Candidal stomatitis R13.11, Dysphagia, oral phase R13.12, Dysphagia, oropharyngeal phase CPT copyright 2019 [employer]. All rights reserved. The codes documented in this report are preliminary and upon funds development director review may be revised to meet current compliance requirements. Corey Adame MD Corey ADAME MD 06/27/2020 2:15:45 PM Electronically signed by Corey ADAME MD Number of Addenda: 0 Note Initiated On: 06/27/2020 1:57 PM Estimated Blood Loss: Estimated blood loss: none.
[2020-06-27] MEDS ORDERED: propofoL 200 MG/20 ML VIAL As Ordered ONE (14:19)
[2020-06-27] MEDS ORDERED: LIDOCAINE 2% 100MG/5ML SDV (FOR ANES.) As Ordered ONE (14:19)
[2020-06-27 14:39] VITALS: BP 115/75
== END 2020-06-27 14:41 | disposition home or self-care (01) ==
LOC: M OPP 12:27
PROVIDERS: ATTEND Internal Medicine Gastroenterology
DX: R13.11 Dysphagia, oral phase (principal); R13.12 Dysphagia, oropharyngeal phase; B37.0 Candidal stomatitis; I10 Essential (primary) hypertension; E78.5 Hyperlipidemia, unspecified; E11.9 Type 2 diabetes mellitus without complications; R12 Heartburn; M19.90 Unspecified osteoarthritis, unspecified site; G62.9 Polyneuropathy, unspecified; F43.10 Post-traumatic stress disorder, unspecified; J44.9 Chronic obstructive pulmonary disease, unspecified; G47.33 Obstructive sleep apnea (adult) (pediatric); F41.9 Anxiety disorder, unspecified; F32.9 Major depressive disorder, single episode, unspecified; Z88.0 Allergy status to penicillin; Z88.5 Allergy status to narcotic agent; Z88.6 Allergy status to analgesic agent; Z91.030 Bee allergy status; Z79.82 Long term (current) use of aspirin; Z79.899 Other long term (current) drug therapy

== ENCOUNTER 2020-08-13 04:54 | Inpatient (IN) | payer MEDICARE ==
[~2020-08-13] VITALS: Ht 177.8 cm; Wt 111.4 kg
[~2020-08-13 04:54] MED LIST changes: -IPRA0.00; +IPRA0.00 INH; -NS 1,000 ML IV ONE
[2020-08-13] MEDS ORDERED: methylPREDNISolone 125MG 2ML VIAL IV ONE (05:30)
[2020-08-13] MEDS: COMBIVENT RESPIMAT 100-20MCG INHALER 4GM INH SCH ×3 (05:30→08:44)
[2020-08-13] MEDS: methylPREDNISolone 125MG 2ML VIAL IV SCH ×3 (06:00→21:55)
[2020-08-13 06:09] LABS: BASO # 0.1 10^3/uL (0.0-0.2); BASO % 0.5 % (0.0-1.0); EOS # 0.6 10^3/uL (0.0-0.5); EOS % 3.6 % (0.0-3.0); HEMOGLOBIN 13.8 g/dl (13.5-17.5); LYMPH # 1.6 10^3/uL (1.5-5.0); LYMPH % 10.4 % (24.0-44.0); MEAN CORPUSCULAR HEMOGLOBIN 27.6 pg (27.0-33.0); MEAN CORPUSCULAR HGB CONC 31.4 g/dl (32.0-36.5); MONO # 1.1 10^3/uL (0.0-0.8); NEUTROPHILS % 77.5 % (36.0-66.0); PLATELET COUNT, AUTOMATED 464 10^3/uL (150-450); WHITE BLOOD COUNT 15.5 10^3/uL (4.0-10.0)
[2020-08-13 06:35] LABS: ALBUMIN 2.9 GM/DL (3.2-5.2); ALT/SGPT 27 U/L (12-78); BILIRUBIN,DIRECT 0.1 MG/DL (0.0-0.2); BILIRUBIN,TOTAL 0.2 MG/DL (0.2-1.0); BLOOD UREA NITROGEN 14 MG/DL (7-18); CARBON DIOXIDE LEVEL 31 MEQ/L (21-32); CHLORIDE LEVEL 101 MEQ/L (98-107); GLOMERULAR FILTRATION RATE > 60.0 (>49); GLUCOSE, FASTING 237 MG/DL (70-100); POTASSIUM SERUM 4.5 MEQ/L (3.5-5.1); SODIUM LEVEL 137 MEQ/L (136-145); TOTAL PROTEIN 6.9 GM/DL (6.4-8.2)
[2020-08-13 06:36] LABS: ABG BASE EXCESS 1.1 (-2.0-2.0); ABG HCO3 26.4 MEQ/L (22.0-26.0); ABG O2 SATURATION 99.5 % (95.0-99.0); ABG PARTIAL PRESSURE CO2 44.2 mmHg (35.0-45.0); ABG PARTIAL PRESSURE O2 175.6 mmHg (75.0-100.0); ABG STANDARD HCO3 25.5 MEQ/L (22.0-26.0); ABG TOTAL CO2 27.8 MEQ/L (23.0-31.0); ABG pH (ARTERIAL) 7.394 UNITS (7.350-7.450)
--- NOTE | 2020-08-13 07:15 | REPVR ---
PROCEDURE INFORMATION: Exam: XR Chest, 1 View Exam date and time: 08/13/2020 6:12 AM Age: 64 years old Clinical indication: Cough and dyspnea; Additional info: Dyspnea/cough TECHNIQUE: Imaging protocol: XR of the chest Views: 1 view. COMPARISON: CR Chest, 2 view PA, Lat 04/27/2019 12:00 PM FINDINGS: Lungs: There is right lower lung zone atelectatic changes versus infiltrates. Less prominent left basilar atelectatic changes versus infiltrates seen there is mild prominent interstitial markings in the right lung. Pleural space: Unremarkable. No pleural effusion. No pneumothorax. Heart/Mediastinum: Unremarkable. No cardiomegaly. Bones/joints: Unremarkable. IMPRESSION: Bibasilar, right more than left, atelectatic changes versus infiltrates in the background of mild prominent interstitial markings in the right lung. Electronically signed by: Naveen Mack On 08/13/2020 07:14:41 AM
[2020-08-13] MEDS ORDERED: LevoFLOXacin IV 750 MG in IV 1 EA IV ONE (07:30)
[2020-08-13] MEDS ORDERED: GLUCOSE 4GM CHEW TABLET PO PRN (08:00)
[2020-08-13] MEDS ORDERED: ACETAMINOPHEN TAB 650MG DOSE (2X325MG) PO PRN (08:00)
[2020-08-13] MEDS: IPRATROPIUM 0.5MG/ALBUTEROL 2.5MG INH SOL UD 3ML (DUONEB) NEB SCH ×3 (08:00→20:37)
[2020-08-13] MEDS ORDERED: IPRATROPIUM 0.5MG/ALBUTEROL 2.5MG INH SOL UD 3ML (DUONEB) NEB PRN (08:00)
[2020-08-13] MEDS ORDERED: DEXTROSE 50% 50 ML SYRINGE IV PRN (08:00)
[2020-08-13] MEDS ORDERED: GLUCAGON INJ 1MG VIAL SC PRN (08:00)
[2020-08-13] MEDS: HumaLOG INSULIN (NovoLOG) PER UNIT SC SCH ×4 (08:35→21:56)
[2020-08-13] MEDS: HEPARIN SOD (PORCINE) 5000UNITS/ML 1ML VIAL/SYRINGE SC SCH ×3 (08:35→21:55)
[2020-08-13] MEDS: SYMBICORT 160/4.5MCG INHALER 6GM INH SCH ×2 (08:44→20:37)
[2020-08-13] MEDS: PROPRANOLOL 20 MG TAB PO SCH ×2 (12:10→21:57)
[2020-08-13] MEDS: guaiFENesin ER 600 MG TAB PO SCH ×2 (12:10→21:57)
[2020-08-13] MEDS: DULoxetine 30 MG CAP (CYMBALTA) PO SCH ×2 (12:10→21:57)
[2020-08-13] MEDS: TAMSULOSIN 0.4 MG CAP PO SCH (12:10)
--- NOTE | 2020-08-13 13:37 | HPEPDOC ---
[facility] Medical History & Physical Date of Admission Aug 13, 2020 Date of Service: Aug 13, 2020 History and Physical Chief complaint: Who presented to the emergency room with complaints of shortness of breath History of present illness: Patient is a 64-year-old male who presented to the emergency room with shortness of breath that has been ongoing for 2-3 weeks. Patient reports that is worse with exertion at home. He had noted his pulse oximeter to read 70%. Patient is reported a productive cough with yellow sputum. Patient denies any palpitations, but does report chest tightness has reported a fever at home 103F. Patient denies any nausea, vomiting, abdominal pain consultation, diarrhea, or urinary discomfort. Patient has seen his planning director one month ago and was completed course of prednisone and antibiotics approximately 2 weeks ago. Patient reports that his appetite has been poor and is unsure of any changes in his weight. Past Medical History: COPD HTN Aortic stenosis DLP NIDDM2 Neuropathy Essential tremors Past Surgical History: Umbilical hernia repair 2 Right-sided carpal tunnel release Right-sided trigger finger release Right fifth digit fracture Bilateral tympanostomies as a child Allergies: See below Medications: See below Family History: - Mothers side of the family with a history of leukemia pancreatic cancer and lung cancer - Father side with a history of lung cancer Social History: - Denies the use of alcohol; patient reports that he quit smoking in 2000, but was a smoker of 25 years at 2 PPD and reports that he occasionally smokes marijuana - Denies recent travel or sick contacts - Lives with - Occupation; 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 Review of Systems: 10 point review of systems complete, all negative otherwise stated in HPI Physical exam: - Vitals: BP [118/72], HR [111], RR [20], Sat [94%NC2L], Temp [96.7F] - General: Sitting up in bed, No acute distress, Speaking in full sentences, AAOx3 - HEENT: NC, AT, PERRLA - CVS: RRR, +S1S - Lungs: Poor inspiratory effort bilaterally, difficult to auscultate any wheezing, rhonchi or rales - Abdomen: Soft, Non-distended, Non-tender - Extremities: No lower extremity edema, No calf tenderness - Neuro: No focal motor or sensory deficit - Skin: No visible rashes Labs: See below Imaging: CXR 08/13: Bibasilar, right more than left, atelectatic changes versus infiltrates in the background of mild prominent interstitial markings in the right lung. EKG: See below Assessment and Plan: Acute hypoxic respiratory failure - likely 2/2 acute exacerbation of COPD, possibly 2/2 PE - Presented to the ER complaints of SOB that has been progressive over the last to 3 weeks associated with productive cough - Physical with minimally appreciated. Lung sounds - Leukocytosis with neutrophil predominance - Respiratory panel 08/13: Negative - Imaging noted above - Will check sputum cultures / blood cultures / procalcitonin / CT angio chest - Will start Levofloxacin (Day #1) - Will start solumedrol - Will start Duoneb therapy - Will start incentive spirometry / acapella / mucinex HTN - BP well controlled - c/w Propranolol Aortic stenosis DLP - c/w Atorvastatin NIDDM2 - Will start ISS and will start small dose of Levemir BID - Will check HbA1c Neuropathy / Essential tremors - c/w Duloxetine BPH - c/w Tamsulosin DVT prophylaxis - Will start Heparin Vital Signs Vital Signs Date Time Temp Pulse Resp B/P (MAP) Pulse Ox O2 Delivery O2 Flow Rate FiO2 08/13/20 12:10 111 118/72 08/13/20 09:28 96.7 20 94 Nasal Cannula 2.0 Laboratory Data Labs 24H Laboratory Tests 2 08/13/20 05:39: Immature Granulocyte % (Auto) 1.0, Neutrophils (%) (Auto) 77.5H, Lymphocytes (%) (Auto) 10.4L, Monocytes (%) (Auto) 7.0H, Eosinophils (%) (Auto) 3.6H, Basophils (%) (Auto) 0.5, Neutrophils # (Auto) 12.0H, Lymphocytes # (Auto) 1.6, Monocytes # (Auto) 1.1H, Eosinophils # (Auto) 0.6H, Basophils # (Auto) 0.1, Nucleated Red Blood Cells % (auto) 0.0, Anion Gap 5L, Glomerular Filtration Rate > 60.0, Calcium Level 9.0, Total Bilirubin 0.2, Direct Bilirubin 0.1, Aspartate Amino T ransf (AST/SGOT) 16, Alanine Aminotransferase (ALT/SGPT) 27, Alkaline Phosphatase 118H, Total Protein 6.9, Albumin 2.9L, Albumin/Globulin Ratio 0.7 08/13/20 06:30: Blood Gas Bicarbonate Standard 25.5, Arterial Blood pH 7.394, Arterial Blood Partial Pressure CO2 44.2, Arterial Blood Partial Pressure O2 175.6H, Arterial Blood Total CO2 27.8, Arterial Blood HCO3 26.4H, Arterial Blood Base Excess 1.1, Arterial Blood Oxygen Saturation 99.5H 08/13/20 08:26: Bedside Glucose (Misc Panel) 305H 08/13/20 11:39: Bedside Glucose (Misc Panel) 296H CBC/BMP Laboratory Tests 08/13/20 05:39 Microbiology Microbiology 08/13/20 Blood Culture, Received Pending 08/13/20 Blood Culture, Received Pending 08/13/20 Respiratory Virus Panel (PCR) (LI[facility]) - Final, Complete Home Medications Scheduled Aspirin (Aspirin EC) 81 Mg Tablet.dr, 81 MG PO QHS Atorvastatin Calcium (Atorvastatin Calcium) 10 Mg Tab, 10 MG PO QHS Budesonide/Formoterol (Symbicort 160-4.5 Mcg Inhaler) 60 Puff/Inhaler Aers, 2 PUFF INH BID Duloxetine Hcl (Duloxetine HCl) 30 Mg Cap, 30 MG PO BID Propranolol HCl (Propranolol HCl) 20 Mg Tab, 20 MG PO BID Tamsulosin HCl (Flomax) 0.4 Mg Cap, 0.8 MG PO DAILY Scheduled PRN Albuterol Sulfate (Ventolin Hfa) 18 Gm Hfa.aer.ad, 2 PUFFS INH QID PRN for SHORTNESS OF BREATH Epinephrine (Epipen 2-Shashi) 0.3 Mg/0.3 Ml Inj, 0.3 MG INJ ASDIRECTED PRN for ANAPHYLAXIS Ipratropium/Albuterol Sulfate (Iprat-Albut 0.5-3(2.5) mg/3 ml) 3 Ml Ampul.neb, 1 VIAL INH QID PRN for SHORTNESS OF BREATH Allergies Coded Allergies: Penicillins (Verified Allergy, Severe, anaphylaxis, 06/19/20) per Dr. García ibuprofen (Verified Allergy, Severe, SWELLING OF FACE, 06/19/20) only to brand name advil, ok with generic formulations codeine (Verified Allergy, Mild, HIVES, 06/19/20) bee venom protein (honey bee) (Verified Allergy, Unknown, 06/19/20) LISA VIRAMONTES MD Aug 13, 2020 13:37
[2020-08-13] MEDS ORDERED: ISOVUE-370 76% 100ML VIAL As Ordered ONE (13:53)
[2020-08-13 14:00] VITALS: BP 140/79
--- NOTE | 2020-08-13 14:35 | REP ---
INDICATION: Hypoxia. COMPARISON: Comparison noncontrast CT study of the chest is from April 02, 2020.. TECHNIQUE: Contrast dose: 75 ML of Isovue [address] technique: Helical scanning is acquired and overlapping 1.5 mm and contiguous 3 mm axial images are reformatted. In addition, maximum intensity projection and multiplanar re-formation images are generated in sagittal and coronal imaging projections. FINDINGS: There is good opacification in the pulmonary arterial tree. There is no evidence of vessel cut off or filling defect to suggest pulmonary embolus. Homogeneous opacity is seen in the thoracic aorta. There is no evidence of aneurysm or dissection. Lung window settings demonstrate show a new pattern of bilateral ground-glass opacities in the periphery of the upper lobes and to some degree, the right middle lobe. These changes are compatible with viral pneumonia. There is no evidence of pleural or pericardial effusion. No hilar or mediastinal mass or adenopathy is observed. There is a Bochdalek's type hernia in the posterior aspect of the diaphragm on the right trans Martinez abdominal fat in the right posterior pleural angle. This is unchanged. In the upper abdomen, normal adrenal glands are observed. There is mild fatty infiltration of the liver. No other upper abdominal abnormality is seen. IMPRESSION: No CT evidence of pulmonary embolus. There are peripheral patchy bilateral ground-glass opacity infiltrates in the upper lobes and in the right middle lobe consistent with viral pneumonia. These are new when compared with the 04/02/2020 study. Commonly reported imaging features of COVID 19 pneumonia are present. Other processes such as influenza pneumonia, drug toxicity, and connective tissue disease can produce a similar pattern. <Electronically signed by Wally Horne > 08/13/20 [id number]
[2020-08-13] MEDS: LEVEMIR (INSULIN DETEMIR) 1 UNITS/0.01ML SC SCH (21:56)
[2020-08-13] MEDS: ATORVASTATIN 10 MG TAB PO SCH (21:57)
[2020-08-13] MEDS: ASPIRIN 81 MG ENTERIC TAB PO SCH (21:57)
[2020-08-13 22:00] VITALS: BP_SYST 152; BP_SYST 169; BP_DIAS 114; BP_DIAS 96
[2020-08-14] MEDS: IPRATROPIUM 0.5MG/ALBUTEROL 2.5MG INH SOL UD 3ML (DUONEB) NEB SCH ×4 (00:01→20:16)
[2020-08-14] MEDS: methylPREDNISolone 125MG 2ML VIAL IV SCH ×3 (05:35→21:35)
[2020-08-14] MEDS: HEPARIN SOD (PORCINE) 5000UNITS/ML 1ML VIAL/SYRINGE SC SCH ×3 (05:35→21:35)
[2020-08-14 06:00] VITALS: BP 127/68
[2020-08-14 08:54] LABS: BASO % 0.2 % (0.0-1.0); HEMATOCRIT 42.3 % (42.0-52.0); HEMOGLOBIN 13.5 g/dl (13.5-17.5); LYMPH # 1.1 10^3/uL (1.5-5.0); LYMPH % 5.7 % (24.0-44.0); MEAN CORPUSCULAR HEMOGLOBIN 27.7 pg (27.0-33.0); MEAN CORPUSCULAR HGB CONC 31.9 g/dl (32.0-36.5); MEAN CORPUSCULAR VOLUME 86.9 fl (80.0-96.0); MONO # 0.4 10^3/uL (0.0-0.8); MONO % 2.1 % (0.0-5.0); NEUTROPHILS % 91.1 % (36.0-66.0); PLATELET COUNT, AUTOMATED 543 10^3/uL (150-450); RED BLOOD COUNT 4.87 10^6/uL (4.30-6.10); WHITE BLOOD COUNT 19.8 10^3/uL (4.0-10.0)
[2020-08-14] MEDS: SYMBICORT 160/4.5MCG INHALER 6GM INH SCH ×2 (08:59→20:17)
[2020-08-14 09:10] LABS: BLOOD UREA NITROGEN 20 MG/DL (7-18); CALCIUM LEVEL 9.3 MG/DL (8.8-10.2); CARBON DIOXIDE LEVEL 27 MEQ/L (21-32); CHLORIDE LEVEL 102 MEQ/L (98-107); GLOMERULAR FILTRATION RATE > 60.0 (>49); GLUCOSE, FASTING 276 MG/DL (70-100); MAGNESIUM LEVEL 2.1 MG/DL (1.8-2.4); POTASSIUM SERUM 4.8 MEQ/L (3.5-5.1); SODIUM LEVEL 138 MEQ/L (136-145)
[2020-08-14] MEDS: LEVEMIR (INSULIN DETEMIR) 1 UNITS/0.01ML SC SCH ×2 (09:34→21:35)
[2020-08-14] MEDS: HumaLOG INSULIN (NovoLOG) PER UNIT SC SCH ×4 (09:34→21:34)
[2020-08-14] MEDS: LevoFLOXacin IV 500 MG in IV 1 EA IV SCH (09:35)
[2020-08-14] MEDS: PROPRANOLOL 20 MG TAB PO SCH ×2 (09:35→21:33)
[2020-08-14] MEDS: DULoxetine 30 MG CAP (CYMBALTA) PO SCH ×2 (09:35→21:33)
[2020-08-14] MEDS: TAMSULOSIN 0.4 MG CAP PO SCH (09:35)
[2020-08-14] MEDS: guaiFENesin ER 600 MG TAB PO SCH ×2 (09:35→21:34)
--- NOTE | 2020-08-14 12:03 | IPNPDOC ---
Text Note Date of Service The patient was seen on 08/14/20. NOTE Subjective: Patient is a 64-year-old male with a PMHx of COPD, HTN, Aortic stenosis, DLP, NIDDM2, Neuropathy, Essential tremors who presented to the [facility] room with shortness of breath that has been ongoing for 2-3 weeks. Patient reports that is worse with exertion at home. He had noted his pulse oximeter to read 70%. Patient is reported a productive cough with yellow sputum. Patient denies any palpitations, but does report chest tightness has reported a fever at home 103F. Patient was admitted to the hospitalist service for further evaluation and treatment. Patient was seen and examined at the bedside. Patient reports that he has had a slight improvement compared to yesterday of his breathing. Patient reports a nonproductive cough. Denies any chest pain. He denies any nausea, vomiting, abdominal pain, diarrhea, or urinary discomfort Objective: Vitals (See below) General: Lying in bed, appears comfortable, AAOx3 HEENT: NC, AT CVS: RRR, +S1S2 Lungs: Poor inspiratory effort, however aeration appears to have improved compared to yesterday. Again no appreciated, rhonchi, rales Abdomen: Soft, nondistended, without tenderness Extremities: No Edema, - Calf tenderness Imaging: CXR 08/13: Bibasilar, right more than left, atelectatic changes versus infiltrates in the background of mild prominent interstitial markings in the right lung. CTA chest 08/13: No CT evidence of pulmonary embolus. There are peripheral patchy bilateral ground-glass opacity infiltrates in the upper lobes and in the right middle lobe consistent with viral pneumonia. These are new when compared with the 04/02/2020 study. Commonly reported imaging features of COVID 19 pneumonia are present. Other processes such as influenza pneumonia, drug toxicity, and connective tissue disease can produce a similar pattern. Assessment and plan: Acute hypoxic respiratory failure - likely 2/2 acute exacerbation of COPD, not 2/2 PE - Presented to the ER complaints of SOB that has been progressive over the last to 3 weeks associated with productive cough - Currently patient reports that his breathing has improved compared to yester day - Physical has revealed improved aeration of his lungs - Leukocytosis with neutrophil predominance - possibly component of corticosteroids - Respiratory panel 08/13: Negative - Blood cultures / Sputum cultures 08/13: Pending - Imaging noted above - c/w Levofloxacin (Day #2); PCT negative - c/w solumedrol - c/w Duoneb therapy - c/w incentive spirometry / acapella / mucinex HTN - BP well controlled - c/w Propranolol Aortic stenosis DLP - c/w Atorvastatin NIDDM2 - Will check A1c - c/w ISS and Levemir BID Neuropathy / Essential tremors - c/w Duloxetine BPH - c/w Tamsulosin DVT prophylaxis - c/w Heparin Disposition: - Anticipate discharge within 24-48 hours VS,Gildardo, I+O VS, Gildardo, I+O Laboratory Tests 08/14/20 08:30 Vital Signs Date Time Temp Pulse Resp B/P (MAP) Pulse Ox O2 Delivery O2 Flow Rate FiO2 08/14/20 09:35 94 117/83 08/14/20 09:05 2.0 08/14/20 06:00 97.0 19 93 Nasal Cannula I&O- Last 24 Hours up to 6 AM 08/14/20 06:00 Intake Total 750 ml Output Total 1700 ml Balance -950 ml LISA VIRAMONTES MD Aug 14, 2020 12:03
[2020-08-14 12:38] LABS: C REACTIVE PROTEIN QUANTITATIV 6.65 MG/DL (0.00-0.30)
[2020-08-14 13:38] LABS: HEMOGLOBIN A1c 9.6 %
--- NOTE | 2020-08-14 14:35 | ECGEPIP ---
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
[2020-08-14 14:46] VITALS: BP 117/82
[2020-08-14] MEDS ORDERED: KETOROLAC 30 MG/ML 1ML VIAL IV ONE (18:00)
[2020-08-14 21:15] VITALS: BP 110/82
[2020-08-14] MEDS: ATORVASTATIN 10 MG TAB PO SCH (21:33)
[2020-08-14] MEDS: ASPIRIN 81 MG ENTERIC TAB PO SCH (21:33)
[2020-08-15] MEDS: IPRATROPIUM 0.5MG/ALBUTEROL 2.5MG INH SOL UD 3ML (DUONEB) NEB SCH ×4 (00:09→19:53)
[2020-08-15] MEDS ORDERED: KETOROLAC 30 MG/ML 1ML VIAL IV ONE (03:45)
[2020-08-15 06:00] VITALS: BP 127/81
[2020-08-15] MEDS: HEPARIN SOD (PORCINE) 5000UNITS/ML 1ML VIAL/SYRINGE SC SCH ×3 (06:16→21:22)
[2020-08-15] MEDS: methylPREDNISolone 125MG 2ML VIAL IV SCH ×3 (06:17→21:23)
[2020-08-15] MEDS: SYMBICORT 160/4.5MCG INHALER 6GM INH SCH ×2 (07:31→19:54)
[2020-08-15] MEDS: PROPRANOLOL 20 MG TAB PO SCH ×2 (09:02→21:22)
[2020-08-15] MEDS: LEVEMIR (INSULIN DETEMIR) 1 UNITS/0.01ML SC SCH ×2 (09:03→19:48)
[2020-08-15] MEDS: DULoxetine 30 MG CAP (CYMBALTA) PO SCH ×2 (09:03→19:47)
[2020-08-15] MEDS: guaiFENesin ER 600 MG TAB PO SCH ×2 (09:03→19:47)
[2020-08-15] MEDS: TAMSULOSIN 0.4 MG CAP PO SCH (09:03)
[2020-08-15] MEDS: HumaLOG INSULIN (NovoLOG) PER UNIT SC SCH ×4 (09:04→20:08)
[2020-08-15] MEDS: LevoFLOXacin IV 500 MG in IV 1 EA IV SCH (09:04)
[2020-08-15 09:14] LABS: BASO % 0.2 % (0.0-1.0); HEMATOCRIT 41.9 % (42.0-52.0); HEMOGLOBIN 13.2 g/dl (13.5-17.5); LYMPH % 4.9 % (24.0-44.0); MEAN CORPUSCULAR HEMOGLOBIN 27.7 pg (27.0-33.0); MEAN CORPUSCULAR HGB CONC 31.5 g/dl (32.0-36.5); MONO # 0.5 10^3/uL (0.0-0.8); MONO % 2.5 % (0.0-5.0); NEUTROPHILS # 19.3 10^3/uL (1.5-8.5); NEUTROPHILS % 91.3 % (36.0-66.0); PLATELET COUNT, AUTOMATED 589 10^3/uL (150-450); RED BLOOD COUNT 4.76 10^6/uL (4.30-6.10); WHITE BLOOD COUNT 21.1 10^3/uL (4.0-10.0)
[2020-08-15 09:23] LABS: BLOOD UREA NITROGEN 28 MG/DL (7-18); CALCIUM LEVEL 9.3 MG/DL (8.8-10.2); CARBON DIOXIDE LEVEL 26 MEQ/L (21-32); CHLORIDE LEVEL 103 MEQ/L (98-107); CREATININE FOR GFR 0.96 MG/DL (0.70-1.30); GLOMERULAR FILTRATION RATE > 60.0 (>49); GLUCOSE, FASTING 217 MG/DL (70-100); POTASSIUM SERUM 4.8 MEQ/L (3.5-5.1); SODIUM LEVEL 139 MEQ/L (136-145)
[2020-08-15 09:24] LABS: C REACTIVE PROTEIN QUANTITATIV 2.78 MG/DL (0.00-0.30); MAGNESIUM LEVEL 2.4 MG/DL (1.8-2.4)
[2020-08-15] MEDS ORDERED: FUROSEMIDE 40MG/4ML VIAL (J1940) IV ONE (10:15)
[2020-08-15] MEDS: KETOROLAC 30 MG/ML 1ML VIAL IV PRN ×2 (12:35→20:08)
--- NOTE | 2020-08-15 12:36 | IPNPDOC ---
Text Note Date of Service The patient was seen on 08/15/20. NOTE SUBJECTIVE: Patient was seen and examined at the bedside. He is feeling much better breathing hobbs. Patient reports a nonproductive cough. Denies any chest pain. He denies any nausea, vomiting, abdominal pain, diarrhea, or urinary discomfort. He does complain of severe pain in the right periaural area and right jaw which he says is due to trigeminal neuralgia. ketorolac last night helped. PHYSICAL EXAM: Vitals (See below) General: Lying in bed, appears comfortable, AAOx3 HEENT: NC, AT, moist mucous membranes no thrush CVS: RRR, +S1S2, no rub or murmur or gallop Lungs: Diminished overall air entry with diffuse crackles. No wheezing or r onchi. Abdomen: Soft, nondistended, without tenderness, obese. Extremities: No Edema, - Calf tenderness Imaging: CXR 08/13: Bibasilar, right more than left, atelectatic changes versus infiltrates in the background of mild prominent interstitial markings in the right lung. CTA chest 08/13: No CT evidence of pulmonary embolus. There are peripheral patchy bilateral ground-glass opacity infiltrates in the upper lobes and in the right middle lobe consistent with viral pneumonia. These are new when compared with the 04/02/2020 study. Commonly reported imaging features of COVID 19 pneumonia are present. Other processes such as influenza pneumonia, drug toxicity, and connective tissue disease can produce a similar pattern. Assessment and plan: Patient is a 64-year-old male with a PMHx of COPD, HTN, Aortic stenosis, DLP, NIDDM2, Neuropathy, Essential tremors , PTSD, Obesity who presented to the emergency room with shortness of breath that has been ongoing for 2-3 weeks. Patient reports that is worse with exertion at home. He had noted his pulse oximeter to read 70%. Patient is reported a productive c ough with yellow sputum. Patient denies any palpitations, but does report chest tightness has reported a fever at home 103F. Patient was admitted to the hospitalist service for further evaluation and treatment. Acute hypoxic respiratory failure Due to exacerbation of COPD, No Pulmonary embolism. Possible viral pneumonia. Leukocytosis with neutrophil predominance - possibly component of corticosteroids Respiratory panel 08/13: Negative Blood cultures negative till date Sputum cultures 08/13: Pending Procalcitonin negative solumedrol, symbicort, Duonebs, mucinex, levofloxacin incentive spirometry / acapella ASH continue own CPAP No CPAP here. Says he uses it during the day when he is awake and watching TV . Cannot use it during sleep as he becomes claustrophobic. Hypertension continue propranolol Diabetes with neuropathy claims it is diet controlled. Not on any meds at home. A1c 9.3 On Levemir and lispro. continue cymbalta H/O kidney stones s/p right lithotripsy and basket extraction in 2017 BPH continue flomax Hyperlipidemia continue statin Aortic stenosis. Neuropathy large and small fibre and poly neuropathy with atrophy of leg muscles and chronic progressive weakness for 5 years has difficulty in ambulation. Right periaural neuralgia/ trigeminal neuralgia Ketorolac prn. H/o depression and PTSD/ anxiety continue home meds. Essential tremors. H/O Dysphagia had EGD with dilatation on 06/2020 had some thrush then in the epiglottis and larynx. no issues now but again on high dose steroids so may again have it. VS,Fishbone, I+O VS, Fishbone, I+O Vital Signs Date Time Temp Pulse Resp B/P (MAP) Pulse Ox O2 Delivery O2 Flow Rate FiO2 08/15/20 06:00 97.2 81 127/81 (96) 96 Nasal Cannula 2.0 08/15/20 00:09 19 I&O- Last 24 Hours up to 6 AM 08/15/20 06:00 Intake Total 1180 ml Balance 1180 ml OBEY MILNER MD Aug 15, 2020 08:55
[2020-08-15] MEDS ORDERED: lamoTRIgine 25 MG TAB PO ONE (13:30)
[2020-08-15 14:00] VITALS: BP 130/82
[2020-08-15] MEDS: ASPIRIN 81 MG ENTERIC TAB PO SCH (19:47)
[2020-08-15] MEDS: ATORVASTATIN 10 MG TAB PO SCH (19:47)
[2020-08-15 21:00] VITALS: BP 132/86
[2020-08-16] MEDS: IPRATROPIUM 0.5MG/ALBUTEROL 2.5MG INH SOL UD 3ML (DUONEB) NEB SCH ×2 (00:08→08:00)
[2020-08-16 06:00] VITALS: BP 112/83
[2020-08-16] MEDS: HEPARIN SOD (PORCINE) 5000UNITS/ML 1ML VIAL/SYRINGE SC SCH (06:24)
[2020-08-16] MEDS: methylPREDNISolone 125MG 2ML VIAL IV SCH (06:24)
[2020-08-16 06:57] LABS: BASO % 0.1 % (0.0-1.0); HEMATOCRIT 39.5 % (42.0-52.0); HEMOGLOBIN 12.5 g/dl (13.5-17.5); LYMPH # 1.3 10^3/uL (1.5-5.0); LYMPH % 7.1 % (24.0-44.0); MEAN CORPUSCULAR HEMOGLOBIN 27.7 pg (27.0-33.0); MEAN CORPUSCULAR HGB CONC 31.6 g/dl (32.0-36.5); MEAN CORPUSCULAR VOLUME 87.6 fl (80.0-96.0); MONO # 0.9 10^3/uL (0.0-0.8); MONO % 4.8 % (0.0-5.0); NEUTROPHILS # 16.2 10^3/uL (1.5-8.5); NEUTROPHILS % 86.8 % (36.0-66.0); PLATELET COUNT, AUTOMATED 526 10^3/uL (150-450); RED BLOOD COUNT 4.51 10^6/uL (4.30-6.10); WHITE BLOOD COUNT 18.7 10^3/uL (4.0-10.0)
[2020-08-16 07:19] LABS: BLOOD UREA NITROGEN 29 MG/DL (7-18); CALCIUM LEVEL 8.9 MG/DL (8.8-10.2); CARBON DIOXIDE LEVEL 29 MEQ/L (21-32); CHLORIDE LEVEL 104 MEQ/L (98-107); CREATININE FOR GFR 1.02 MG/DL (0.70-1.30); GLOMERULAR FILTRATION RATE > 60.0 (>49); GLUCOSE, FASTING 223 MG/DL (70-100); MAGNESIUM LEVEL 2.3 MG/DL (1.8-2.4); POTASSIUM SERUM 4.7 MEQ/L (3.5-5.1); SODIUM LEVEL 140 MEQ/L (136-145)
[2020-08-16] MEDS ORDERED: GLIMEPIRIDE 2 MG TAB PO SCH (07:30)
[2020-08-16] MEDS: LEVEMIR (INSULIN DETEMIR) 1 UNITS/0.01ML SC SCH (07:37)
[2020-08-16] MEDS: HumaLOG INSULIN (NovoLOG) PER UNIT SC SCH (07:37)
[2020-08-16 07:38] VITALS: BP 132/86
[2020-08-16] MEDS: DULoxetine 30 MG CAP (CYMBALTA) PO SCH (07:38)
[2020-08-16] MEDS: KETOROLAC 30 MG/ML 1ML VIAL IV PRN (07:38)
[2020-08-16] MEDS: LevoFLOXacin IV 500 MG in IV 1 EA IV SCH (07:38)
[2020-08-16] MEDS: guaiFENesin ER 600 MG TAB PO SCH (07:38)
[2020-08-16] MEDS: PROPRANOLOL 20 MG TAB PO SCH (07:38)
[2020-08-16] MEDS: TAMSULOSIN 0.4 MG CAP PO SCH (07:39)
[2020-08-16] MEDS: SYMBICORT 160/4.5MCG INHALER 6GM INH SCH (09:08)
[2020-08-16] MEDS ORDERED: AMAR1TAB5 PO (10:12)
[2020-08-16] MEDS ORDERED: METH4PACK PO (10:12)
[2020-08-16] MEDS ORDERED: LEVO500T3 PO (10:12)
[2020-08-16] MEDS ORDERED: METF500T13 PO (10:12)
[2020-08-16] MEDS ORDERED: MUCI600T31 PO (10:12)
[2020-08-16] MEDS ORDERED: GLUC1TES2 XX (10:15)
[2020-08-16] MEDS ORDERED: LANC30MI XX (10:15)
[2020-08-16] MEDS ORDERED: BLOOKIT21 XX (10:15)
[2020-08-16] MEDS ORDERED: ALCOPAD25 TOP (10:15)
--- NOTE | 2020-08-16 15:18 | DS.PDOC ---
Discharge Summary General Date of Admission Aug 13, 2020 at 07:59 Date of Discharge 08/16/20 Discharge Summary PROCEDURES PERFORMED DURING STAY: [None]. DISCHARGE DIAGNOSES: Acute respiratory failure with hypoxia COPD exacerbation Unspecified viral pneumonia SECONDARY DIAGNOSIS: HTN Aortic stenosis DLP NIDDM2 Neuropathy Essential tremors Severe neuralgic pain around the ears and the face/Trigeminal neuralgia Loss of hearing on the right. Obesity ASH on CPAP COPD Kidney stones PTSD Depression COMPLICATIONS/CHIEF COMPLAINT: Copd Exacerbation. HOSPITAL COURSE: Patient is a 64-year-old male with a PMHx of COPD, HTN, Aortic stenosis, DLP, NIDDM2, Neuropathy, Essential tremors , PTSD, Obesity who presented to the emergency room with shortness of breath that has been ongoing for 2-3 weeks. Patient reports that is worse with exertion at home. He had noted his pulse oximeter to read 70%. Patient is reported a productive cough with yellow sputum. Patient denies any palpitations, but does report chest tightness has reported a fever at home 103F. Patient was admitted to the hospitalist service for further evaluation and treatment. Acute hypoxic respiratory failure Due to exacerbation of COPD, No Pulmonary embolism. Possible viral pneumonia. Leukocytosis with neutrophil predominance - possibly component of corticosteroids Respiratory panel 08/13: Negative Blood cultures negative till date Sputum cultures 08/13: Pending Procalcitonin negative Symbicort, Duonebs, mucinex, levofloxacin, steroid taper incentive spirometry / acapella ASH continue own CPAP No CPAP here. Says he uses it during the day when he is awake and watching TV . Cannot use it during sleep as he becomes claustrophobic. Hypertension continue propranolol Diabetes with neuropathy claims it is diet controlled. Not on any meds at home. A1c 9.3 continue cymbalta will start metformin and glimepiride. H/O kidney stones s/p right lithotripsy and basket extraction in 2016 BPH continue flomax Hyperlipidemia continue statin Aortic stenosis. Neuropathy large and small fibre and poly neuropathy with atrophy of leg muscles and chronic progressive weakness for 5 years has difficulty in ambulation. Right periaural neuralgia/ trigeminal neuralgia continue home meds Takes cannabis oil at home H/o depression and PTSD/ anxiety continue home meds. Essential tremors. H/O Dysphagia had EGD with dilatation on 06/2020 had some thrush then in the epiglottis and larynx. no issues now but again on high dose steroids so may again have it. DISCHARGE MEDICATIONS: Please see below. ALLERGIES: Please see below. PHYSICAL EXAMINATION ON DISCHARGE: VITAL SIGNS: Please see below. General: Lying in bed, appears comfortable, AAOx3 HEENT: NC, AT, moist mucous membranes no thrush CVS: RRR, +S1S2, no rub or murmur or gallop Lungs: Diminished overall air entry with diffuse crackles. No wheezing or ronchi . Abdomen: Soft, nondistended, without tenderness, obese. Extremities: No Edema, - Calf tenderness LABORATORY DATA: Please see below. IMAGING: CXR 08/13: Bibasilar, right more than left, atelectatic changes versus infiltrates in the background of mild prominent interstitial markings in the right lung. CTA chest 08/13: No CT evidence of pulmonary embolus. There are peripheral patchy bilateral ground-glass opacity infiltrates in the upper lobes and in the right middle lobe consistent with viral pneumonia. These are new when compared with the 04/02/2020 study. Commonly reported imaging features of COVID 19 pneumonia are present. Other processes such as influenza pneumonia, drug toxicity, and connective tissue disease can produce a similar pattern. ACTIVITY: [As tolerated]. DIET: Consistent carb DISCHARGE PLAN: Home DISCHARGE INSTRUCTIONS: PMD in 2 weeks DISCHARGE CONDITION: [Stable]. TIME SPENT ON DISCHARGE: 35 minutes. Vital Signs/I&Os Vital Signs Date Time Temp Pulse Resp B/P (MAP) Pulse Ox O2 Delivery O2 Flow Rate FiO2 08/15/20 21:22 104 132/86 08/15/20 21:00 97.5 20 91 Room Air 08/15/20 21:00 I&O- Last 24 Hours up to 6 AM 08/16/20 07:00 Intake Total 760 ml Output Total 0 ml Balance 760 ml Laboratory Data Labs 24H Laboratory Tests 2 08/15/20 07:59: Bedside Glucose (Misc Panel) 208H 08/15/20 08:14: Immature Granulocyte % (Auto) 1.1, Neutrophils (%) (Auto) 91.3H, Lymphocytes (%) (Auto) 4.9L, Monocytes (%) (Auto) 2.5, Eosinophils (%) (Auto) 0.0, Basophils (%) (Auto) 0.2, Neutrophils # (Auto) 19.3H, Lymphocytes # (Auto) 1.0L, Monocytes # (Auto) 0.5, Eosinophils # (Auto) 0.0, Basophils # (Auto) 0.0, Nucleated Red Blood Cells % (auto) 0.0, Anion Gap 10, Glomerular Filtration Rate > 60.0, Calcium Level 9.3, Magnesium Level 2.4, C-Reactive Protein, Quantitative 2.78H 08/15/20 11:30: Bedside Glucose (Misc Panel) 346H 08/15/20 16:38: Bedside Glucose (Misc Panel) 180H 08/15/20 19:45: Bedside Glucose (Misc Panel) 281H CBC/BMP Laboratory Tests 08/15/20 08:14 FSBS Laboratory Tests Test 08/15/20 07:59 08/15/20 11:30 08/15/20 16:38 08/15/20 19:45 Range/Units Bedside Glucose (Misc Panel) 208 346 180 281 80-115 MG/DL Microbiology Microbiology 08/14/20 Gram Stain - Final, Resulted 08/14/20 Sputum Culture, Resulted Pending 08/13/20 Blood Culture - Preliminary, Resulted No Growth after 48 hours. All Specime... 08/13/20 Blood Culture - Preliminary, Resulted No Growth after 48 hours. All Specime... 08/13/20 Respiratory Virus Panel (PCR) (LIOR) - Final, Complete Discharge Medications Scheduled Aspirin (Aspirin EC) 81 Mg Tablet.dr, 81 MG PO QHS, (Reported) Atorvastatin Calcium (Atorvastatin Calcium) 10 Mg Tab, 10 MG PO QHS, (Reported) Blood Sugar Diagnostic (Advanced Glucose Test Strips) 1 Each Strip, 100 STRIP XX BID Budesonide/Formoterol (Symbicort 160-4.5 Mcg Inhaler) 60 Puff/Inhaler Aers, 2 PUFF INH BID, (Reported) Duloxetine Hcl (Duloxetine HCl) 30 Mg Cap, 30 MG PO BID, (Reported) Glimepiride (Amaryl) 2 Mg Tablet, 2 MG PO DAILY@0730 Guaifenesin (Mucinex) 600 Mg Tab.er.12h, 600 MG PO BID Levofloxacin (Levofloxacin) 500 Mg Tablet, 500 MG PO DAILY Metformin HCl (Metformin HCl) 500 Mg Tablet, 500 MG PO BID Methylprednisolone (Methylprednisolone) 4 Mg Tab.ds.pk, 0 PO ASDIRECTED take 6 Pills Day 1, 5 Pills Day 2, 4 Pills Day 3, 3 Pills Day 4, 2 Pills Day 5 and 1 pill Day 6 Propranolol HCl (Propranolol HCl) 20 Mg Tab, 20 MG PO BID, (Reported) Tamsulosin HCl (Flomax) 0.4 Mg Cap, 0.8 MG PO DAILY, (Reported) Scheduled PRN Albuterol Sulfate (Ventolin Hfa) 18 Gm Hfa.aer.ad, 2 PUFFS INH QID PRN for SHORTNESS OF BREATH, (Reported) Epinephrine (Epipen 2-Shashi) 0.3 Mg/0.3 Ml Inj, 0.3 MG INJ ASDIRECTED PRN for ANAPHYLAXIS, (Reported) Ipratropium/Albuterol Sulfate (Iprat-Albut 0.5-3(2.5) mg/3 ml) 3 Ml Ampul.neb, 1 VIAL INH QID PRN for SHORTNESS OF BREATH, (Reported) Allergies Coded Allergies: Penicillins (Verified Allergy, Severe, anaphylaxis, 06/19/20) per Dr. Milner ibuprofen (Verified Allergy, Severe, SWELLING OF FACE, 06/19/20) only to brand name advil, ok with generic formulations codeine (Verified Allergy, Mild, HIVES, 06/19/20) bee venom protein (honey bee) (Verified Allergy, Unknown, 06/19/20) OBEY MILNER MD Aug 16, 2020 05:47
[2020-08-16] MEDS ORDERED: lamoTRIgine 25 MG TAB PO SCH (21:00)
[2020-08-17] MEDS ORDERED: LevoFLOXacin 500 MG TABLET PO SCH (06:00)
--- NOTE | 2020-08-19 14:56 | ECHO ---
DATE OF PROCEDURE: 08/16/2020 Age: 64 Gender: Male Height: 70 inches Weight: 244 pounds Body Surface Area: 2.28 meters squared PATIENT LOCATION: Inpatient [address] [place] [address], Room 5151. REFERRING PHYSICIAN: Maria R Hills MD. INDICATION: Dyspnea. MEASUREMENTS: 2D Measurements: RV 3.8 cm. Right ventricular free wall thickness 0.7 cm. LV 3.8 cm Septum 1.0 cm Posterior wall 1.0 cm Aortic Root 3.1 cm LA 3.6 cm LVEF 50% Doppler Measurements: AV 2.4 m/s LVOT 0.84 m/s LVOT diameter 2.1 cm Mean AV gradient 17 mmHg Dimensionless index 0.29 MV-E 87, A 94, EA ratio 0.9 Early mitral deceleration time 132 msec E prime medial 9.3, A prime medial 11, E prime lateral 8.5 Average E/E prime ratio 9.8/PCWP 14 mmHg PV 0.8 m/s Pulmonary artery acceleration time 100 msec PASP 37 mmHg IVC 1.8 cm COMMENTS: Normal sinus rhythm without intraventricular conduction disturbance. A technically challenging study in light of the patient's body habitus, but diagnostically useful information was still obtained. M-mode and 2-dimensional echocardiography was performed with pulse, continuous wave, color flow, and tissue Doppler studies. Normal left ventricular size and wall thickness with septal wall motion abnormality (? right ventricular pressure overload), but otherwise left ventricular wall segments moved normally. Perhaps mild impairment of global resting systolic function. Normal left atrial size with grade 1 LV diastolic dysfunction but current estimated mean left atrial pressure upper limits of normal. Mild right ventricular free wall hypertrophy with normal wall motion and Doppler evidence of at least mild pulmonary hypertension. The right atrium appeared to be slightly dilated. The IVC was upper limits of normal with a slightly reduced respiratory collapse suggestive of a slightly elevated central venous pressure. Normal aortic diameters. Moderate aortic valvular sclerosis with at least mild to moderate stenosis but no apparent insufficiency. Moderate degenerative changes of the mitral valvular apparatus without functional valvular abnormality. The tricuspid valve appeared to be normal with at least mild to moderate insufficiency. We could not obtain correct alignment for a continuous wave Doppler to more accurately estimate his right ventricular systolic pressure. No apparent intracardiac mass or pericardial effusion. MTDD
== END 2020-08-16 12:31 | disposition home or self-care (01) | DRG 189 ==
LOC: M ED 04:54 → M ED INP 07:59 → M MS5PR 09:40
PROVIDERS: ADMIT Internal Medicine; ATTEND Internal Medicine Nephrology
DX: J96.01 Acute respiratory failure with hypoxia (principal); J12.9 Viral pneumonia, unspecified; J44.1 Chronic obstructive pulmonary disease with (acute) exacerbation; I10 Essential (primary) hypertension; I35.0 Nonrheumatic aortic (valve) stenosis; E78.5 Hyperlipidemia, unspecified; E11.42 Type 2 diabetes mellitus with diabetic polyneuropathy; G25.0 Essential tremor; G47.33 Obstructive sleep apnea (adult) (pediatric); N40.0 Benign prostatic hyperplasia without lower urinary tract symptoms; G50.0 Trigeminal neuralgia; E66.9 Obesity, unspecified; F32.9 Major depressive disorder, single episode, unspecified; F43.10 Post-traumatic stress disorder, unspecified; H91.91 Unspecified hearing loss, right ear; Z79.82 Long term (current) use of aspirin; Z79.899 Other long term (current) drug therapy; Z88.0 Allergy status to penicillin; Z87.891 Personal history of nicotine dependence; Z88.6 Allergy status to analgesic agent; Z88.5 Allergy status to narcotic agent; Z91.030 Bee allergy status; Z87.442 Personal history of urinary calculi; Z68.35 Body mass index [BMI] 35.0-35.9, adult

== ENCOUNTER 2020-09-02 23:08 | Inpatient (IN) | payer MEDICARE ==
[~2020-09-02] VITALS: Ht 177.8 cm; Wt 105.3 kg
[~2020-09-02 23:08] MED LIST changes: +ALCOPAD25 TOP; +AMAR1TAB5 PO; +BLOOKIT21 XX; +GLUC1TES2 XX; +LANC30MI XX; +LEVO500T3 PO; +METF500T13 PO; +METH4PACK PO
--- OUTSIDE RECORDS SUMMARY | 2020-09-02 23:13 | CCD | Continuity of Care Document ---
Author Author Corey CHOU DO Organization Unknown Address [address] [place] [address] Phone [phone] Care Team Providers Care News Editor Name Role Phone AUTM Unavailable Corey Wilson M.D. AUTM [phone] Problems Active Problems Provider Date Essential hypertension Garrett Reyes JR, MD Onset: 03/24/20 17 Chronic obstructive lung disease Corey Chou DO Onset: 04/10/2020 Panacinar emphysema Corey Chou DO Onset: 04/10/2020 Ex-smoker Corey Chou DO Onset: 04/10/2020 Social History Type Date Description Comments Sex Unknown Cigarette Use Pack Years - 54 ETOH Use Rarely consumes alcohol Tobacco Use Start: 07/19/73 End: 07/19/00 Patient is a forme r smoker Recreational Drug Use Current Drug User MARICHELSEAAN A TINCTURE TID Smoking Status Reviewed: 06/25/20 Patient is a former smoker Allergies, Adverse Reactions, Alerts Active Allergies Reaction Severity Comments Date Penicillin THROAT CLOSING 03/24/2017 Codeine SEVERE ITCHING 03/24/2017 Advil FACE SWELLING 03/24/2017 Bee Sting THROAT CLOSING 03/24/2017 Medications Active Medications SIG Qnty Indications Ordering Provide r Date Spiriva Respimat 2.5mcg/Act Aeroso l 2 puffs every day-sample only 4gm Corey Chou DO 06/25/[address] 1 by mouth twice a day (dysphagia, reflux) 60caps R13.12 Corey Adame MD 05/15/2020 Epipen 2-Shashi 0.3mg/0 .3ML Solution Auto-Inject as directed Unknown Symbicort 160-4.5mcg/Act Aerosol 2 puff twice a day 10.200gm Corey Chou, DO Propranolol HCL 20mg Tablets 1 tab by mouth twice a day for esophageal varices/ cirrhosis Unknown Duloxetine HCL 30mg Caps DR Part 1 caps by mouth twice a day Unknown Atorvastatin Calcium 10mg Tablets 1 tab by mouth every day Unknown Tamsulosin HCL 0.4mg Capsules 2 cap by mouth every day Unknown Aspir-[address] 1 tab by mouth every day Unknown Ventolin HFA 108(90Base) mcg/Act A erosol 2 puffs qid/prn 18gm Corey Chou, DO CPAP Device 8cm lcw Unknown Immunizations CPT Code Status Date Vaccine Lot # [id number] Given 05/20/2020 Afluria, Quadrivalent, 0.5ml , [facility]# [id number] Vital Signs Date Vital Result Comment 06/25/2020 8:36am BP Systolic 142 mmHg BP Diastolic 90 mmHg Heart Rate 93 /min O2 % BldC Oximetry 95 % Height 70 inches 5'10" Weight 255.00 lb BMI (Body Mass Index) 36.6 kg/m2 [place] Body Weight 166 lb Weight 115.668 kg BSA (Body Surface Area) 2.31 m2 05/15/2020 2:31pm BP Systolic 139 mmHg BP Diastolic 60 mmHg Height 70 inches 5'10" Weight 250.00 lb BMI (Body Mass Index) 35.9 kg/m2 [place] Body Weight 166 lb Weight 113.400 kg BSA (Body Surface Area) 2.29 m2 Results Test Acquired Date Facility Test Result H/L Range Note FVL/[place] 06/25/2020 [employer] PD[facility]eport SEE IMAGE FVC-Pred 4.61 L FVC-Pre 2.03 L FVC-%Pred-Pre 44 L FVC-LLN 3.67 L Fev1-Pred 3.44 L Fev1-Pre 0.86 L Fev1-%Pred-Pre 25 L Fev1-LLN 2.65 L Fev6-Pred 4.37 L Fev6-Pre 2.01 L Fev6-%Pred-Pre 45 L Fev6-LLN 3.46 L Kbj9mcg-Xuor 75 % Hlt2xth-Mqe 42 % Cmb1gdm-%Pred-Pre 56 % Xix1jlp-DRS 65 % Gwc4cri-Ziwl 95 % Wkf4lza-Vwx 99 % Bhw8ekq-%Pred-Pre 103 % FEFMax-Pred 8.82 L/E/sec FEFMax-Pre 3.05 L/E/sec FEFMax-%Pred-Pre 34 L/E/sec FEFMax-LLN 6.50 L/E/sec Lbw8687-Bjjd 2.72 L/E/sec Urp2582-Qkt 0.36 L/E/sec Iki1710-%Pred-Pre 13 L/E/sec Scm1833-RZE 1.12 L/E/sec ExpTime-Pre 6.44 sec Yqx2nwe5-Jeeb 78 % Bst6ldq4-Muc 43 % Ypa8ldg5-%Pred-Pre 54 % Bqo2qci2-QKD 69 % [facility]VL/[place] 04/10/2020 [employer] PD[facility]eport SEE IMAGE FVC-Pred 4.61 L FVC-Pre 2.59 L FVC-%Pred-Pre 56 L FVC-LLN 3.67 L Fev1-Pred 3.44 L Fev1-Pre 1.05 L Fev1-%Pred-Pre 30 L Fev1-LLN 2.65 L Fev6-Pred 4.37 L Fev6-Pre 2.58 L Fev6-%Pred-Pre 59 L Fev6-LLN 3.46 L Xyx3zlu-Rzuu 75 % Aqu6jnh-Dfr 41 % Puy1mcc-%Pred-Pre 54 % Ifz4qul-PWE 65 % Swi5ziv-Clpz 95 % Deg8doz-Ulw 100 % Elg9cwd-%Pred-Pre 104 % FEFMax-Pred 8.82 L/E/sec FEFMax-Pre 4.38 L/E/sec FEFMax-%Pred-Pre 49 L/E/sec FEFMax-LLN 6.50 L/E/sec Fry7360-Ofis 2.72 L/E/sec Zzc7611-Sko 0.46 L/E/sec Tba5332-%Pred-Pre 16 L/E/sec Axw9149-TAK 1.12 L/E/sec ExpTime-Pre 6.33 sec Atw9wqe8-Xgev 78 % Slb0pxl5-Psa 41 % Dsl8vww9-%Pred-Pre 52 % Ahs7dic9-QUQ 69 % Procedures Date Code Description Status 04/10/2020 02167 Spirometry Completed Medical Devices Description No Information Available Encounters Type Date Location Provider Dx Diagnosis Office Visit 06/25/2020 8:30a [facility] Pulmonary/Thoracic Alejandro Chou, DO J44.9 Chronic obstructive pulmonar y disease, unspecified R05 Cough Office Visit 05/15/2020 2:15p [facility] ENT/GI Practice Corey limon MD R13.12 Dysphagia, oropharyngeal phase R49.0 Dysphonia Office Visit 04/10/2020 9:30a [facility] Pulmonary/Thoracic Alejandro Chou, DO J43.1 Panlobular emphysema Z87.891 Personal history of nicotine dependence Office Visit 02/14/2020 2:10p [facility] ENT/ Practice Zana Tracy MD H90.6 Mixed conductive and sensorineural hearing loss, bilateral Assessments Date Code Description Provider 06/25/2020 J44.9 Chronic obstructive pulmonary di sease, unspecified Corey Chou, 06/25/2020 R05 Cough Corey Chou , DO 05/15/2020 R13.12 Dysphagia, oropharyngeal phase Alejandro Adame MD 05/15/2020 R49.0 Dysphonia Corey Adame MD 04/10/2020 J43.1 Panlobular emphysema Corey quiles, DO 04/10/2020 Z87.891 Personal history of nicotine dep endence Corey Chou, DO 02/14/2020 H90.6 Mixed conductive and sensorineur al hearing loss, bilateral Zana Tracy MD Plan of Treatment Future Appointment(s):* 06/27/2020 8:13 am - Corey Adame MD at [facility] ENT/GI Practice 06/25/2020 - Corey Chou DO* J44.9 Chronic obstructive pulmonary disease, unspecified * R05 Cough * * Follow up:* add spriiva respramat daily , if after sample there is relief then we will send Rx. keep prior routine follow up as scheduled. Functional Status Description No Information Available Mental Status Description No Information Available Referrals Refer to Dr Reason for Referral Status Appt Date Corey Adame MD Throat problem, weight loss 20lbs in las t 2.5 weeks, dysphia Scheduled 05/15/2020 [facility] Gastroenterology [address], [address] [place] [id number] [phone] Radiology/Procedure APPROVED [id number] Closed
--- OUTSIDE RECORDS SUMMARY | 2020-09-02 23:13 | CCD | Continuity of Care Document ---
Author Author Corey FLORENCE M.D. Organization Unknown Address [id number] [place] [address] Phone [phone] Care Team Providers Care Sustain Engineer Name Role Phone Chas Florence MD AUTM [phone] Corey Chou DO AUTM [phone] Justice Patton MD AUTM [phone] Problems Active Problems Provider Date Rosacea Chas Florence M.D. Onset: 03/08/2016 Anxiety state Chas Florence M.D. Onset: 03/08/2016 Social History Type Date Description Comments Sex Unknown ETOH Use Occasionally consumes alcohol so cially Tobacco Use Start: Unknown End: Unknown Patient is a former smoker 1 -2 PPD x 25yrs, Quit 2000 Allergies, Adverse Reactions, Alerts Active Allergies Reaction Severity Comments Date Penicillin throat edema 03/06/2016 Codeine itching 03/06/2016 Advil Facial swelling Only To Advil, can take i buprofen 03/06/2016 Bee Sting Anaphylaxis 03/06/2016 Metformin vomitting 11/29/2019 Medications Active Medications SIG Qnty Indications Ordering Provide r Date Atorvastatin Calcium 10mg Tablets 1 by mouth every day 30tabs Chas Florence M.D. 11/28/2019 Oxycodone-Acetaminophen 5-325mg Ta blets 1 Tab Q6 HRS prn Severe Pain 20tabs Chas Florence M.D. 11/17/2019 Tramadol HCL 50mg Tablets one tablet PO bid x 7 days 14tabs H60.8x3 Thaddeus Santana MD 11/15/2019 Nebulizer Device use as d irected 1units Chas Florence M.D. 12/22/2018 Nebulizer Kit/Tubing/Mouthpiece K it use four times a day dx j44.9 1units Chas Florence M.D. 0 12/22/2018 Sildenafil Citrate 20mg Tablets 2-5 tab by mouth 1 hour before intercourse 25tabs Chas Florence M.D. 11/25/2018 Onetouch Ultra 2 w/Device Kit test twice a day and as directed e11.65 1units Chas Florence M.D. 07/29/2018 Onetouch Ultra Blue Strips use twice daily to check blood sugar dx e11.65 200units Chas simpson M.D. 07/29/2018 Onetouch Ultrasoft Lancets Misc test twice a day e11.65 200units Chas Florence M.D. 07/29/19 19 Tamsulosin HCL 0.4mg Capsules 2 daily 1/2 hour after same meal 180caps Chas Florence M.D. 2017 Medical Marijuana E78.5 Ernesto Martell 03/10/[address] Part 2 PO Daily 180caps R20.2 Chas Florence M.D. 02/03/2017 Denavir 1% Cream apply four times a day to affected area as needed 10gm G60.9 Chas Florence M.D. Epipen 2-Shashi 0.3mg/0 .3ML Solution Auto-Inject as directed 2units J44.9 Chas Florence M.D. 016 Aspirin Ec Low Dose 81mg Tablets D R 1 by mouth every day 30tabs Chas Florence M.D. 03/06/2016 Ketoconazole 2% Cream twice a day to effected area on face 60gm R20.2 Chas Florence M.D. 03/06 Symbicort 160-4.5mcg/Act Aerosol 2 puff twice a day Corey Chou DO Proair HFA 108(90Base) mcg/Act Aer osol 2 puffs four times a day as needed Corey Chou DO Ipratropium [place]/Albuterol Sulfate 0.5-2.5(3)mg/3ML Solution 1 vial tid as needed Corey Rodríguez DO Amitriptyline HCL 25mg Tablets 1 po hs titrate up 3 hs Justice Patton MD Propranolol HCL 20mg Tablets take 1 tablet by mouth twice daily 180tabs Chas Florence M.D. Medications Administered in Office Medication SIG Qnty Indications Ordering Provider Date Administration Of Flu Vaccine Inj ection Chas Florence M.D. 04/26/2018 Immunizations CPT Code Status Date Vaccine Lot # [id number] Given 04/10/2020 Influenza,Unspecified [id number] Given 04/26/2018 Influenza Virus Vaccine, Quadrivalent (Cciiv4), Derived From Cell [id number] Vital Signs Date Vital Result Comment 06/12/2020 9:39am BP Systolic 136 mmHg BP Diastolic 84 mmHg Heart Rate 88 /min Height 69.0 inches 5'9" Weight 257.00 lb O2 % BldC Oximetry 90 % BMI (Body Mass Index) 37.9 kg/m2 02/07/2020 11:24am BP Systolic 92 mmHg BP Diastolic 78 mmHg Heart Rate 80 /min Height 69.0 inches 5'9" Weight 258.00 lb O2 % BldC Oximetry 92 % BMI (Body Mass Index) 38.1 kg/m2 Results Test Acquired Date Facility Test Result H/L Range Note Laboratory test finding 06/12/2020 [facility] Organizational Effectiveness Director: Dr Thaddeus Santana [place], [place] [id number] [phone] A1c <pending> CBC With Differential 04/30/2020 [address] [place], [place] [address] [phone] White Blood Count 11.9 10 High 4.0-10.0 Red Blood Count 5.45 10 Normal 4.30-6.10 Hemoglobin 16.1 g/dL Normal 13.5-17.5 Hematocrit 48.8 % Normal 42.0-52.0 Mean Corpuscular Volume 89.5 fl Normal 80.0-96.0 Mean Corpuscular Hemoglobin 29.5 pg Normal 27.0-33.0 Mean Corpuscular HGB Conc 33.0 g/dL Normal 32.0-36.5 Red Cell Distribution Width 13.2 % Normal 11.5-14.5 Platelet Count, Automated 360 10 Normal 150-450 Neutrophils % 75.8 % High 36.0-66.0 Lymph % 14.3 % Low 24.0-44.0 [place] % 6.8 % High 0.0-5.0 Eos % 1.9 % Normal 0.0-3.0 Baso % 0.8 % Normal 0.0-1.0 Immature Granulocyte % 0.4 % Normal 0-3.0 Nucleated Red Blood Cell % 0.0 % Normal 0-0 Neutrophils # 9.0 10 High 1.5-8.5 Lymph # 1.7 10 Normal 1.5-5.0 [place] # 0.8 10 Normal 0.0-0.8 Eos # 0.2 10 Normal 0.0-0.5 Baso # 0.1 10 Normal 0.0-0.2 Comprehensive Metabolic Profil 04/30/[address] [address] [phone] Glucose, Fasting 188 mg/dL High 70-100 Blood Urea Nitrogen 20 mg/dL High 7-18 Creatinine For GFR 1.02 mg/dL Normal 0.70-1.30 Glomerular Filtration Rate > 60.0 Normal >49 1 Sodium Level 138 mEq/L Normal 136-145 Potassium Serum 4.7 mEq/L Normal 3.5-5.1 Chloride Level 106 mEq/L Normal 98-107 Carbon Dioxide Level 25 mEq/L Normal 21-32 Anion Gap 7 mEq/L Low 8-16 Calcium Level 9.5 mg/dL Normal 8.8-10.2 Ast/Sgot 20 U/L Normal 7-37 Alt/SGPT 29 U/L Normal 12-78 Alkaline Phosphatase 117 U/L Normal 45-117 Bilirubin,Total 0.7 mg/dL Normal 0.2-1.0 Total Protein 7.8 GM/DL Normal 6.4-8.2 Albumin 4.0 GM/DL Normal 3.2-5.2 Albumin/Globulin Ratio 1.1 Normal Laboratory test finding 04/30/[address] [address] [phone] Thyroid Stimulating Hormone 1.240 uIU/ML Normal 0. 358-3.740 Free T4 1.09 ng/dL Normal 0.76-1.46 Total T3 97.8 ng/dL Normal 60.0-181.0 Thyroid Peroxidase Antibody 31.2 U/ML Normal <60.0 Thyroglobulin Antibody < 15.0 U/ML Normal <60.0 Microalbumin/Creatinine Urine 02/07/2020 [facility], Organizational Effectiveness Director: Dr Thaddeus Santana [place] [id number] [phone] Microalbumin Urine 9.8 mg/L 1.3 - 20.0 Urine Creatinine 173.7 mg/dL High 30.0 - 125.0 Microalb/Creat Ratio 5.6 ug/mg 0.0 - 30.0 Complete Blood Count 02/06/2020 [facility], Organizational Effectiveness Director: [place] [address] [phone] WBC 10.0 x10*3/UL 4.1 - 10.9 RBC 4.98 x10*6/UL 4.20 - 6.30 Hemoglobin 14.9 g/dL 12.0 - 18.0 Hematocrit 44.6 % 37.0 - 51.0 MCV 89.5 fL 80.0 - 97.0 MCH 30.0 pg 26.0 - 32.0 MCHC 33.5 g/dL 31.0 - 38.0 RDW 13.5 % 11.6 - 13.7 PLT 363 x10*3/UL 140 - 440 MPV 8.0 FL 7.8 - 11.0 Lymph % 19.3 % 10.0 - 58.5 Mid % 5.8 % 1.7 - 9.3 Neut % 74.9 % 37.0 - 92.0 Lymph # 1.9 x10*3/UL 0.6 - 4.1 Mid # 0.6 x10*3/UL 0.1 - 0.6 Neut # 7.5 x10*3/UL 2.0 - 7.8 A1c 02/06/2020 [facility] , Organizational Effectiveness Director: [place] [address] [phone] Hba1c 7.7 g/dL High 4.8 - 5.6 2 Est Avg Glucose 174 mg/dL High 60 - 110 Comprehensive Chem Profile 02/06/2020 [facility] Organizational Effectiveness Director: Dr Thaddeus Santana [place], [place] [id number] [phone] Glucose 180 mg/dL High 74 - 99 3 BUN 19 mg/dL High 7 - 18 Creatinine 1.1 mg/dL 0.6 - 1.3 Sodium 142 mEq/L 136 - 145 Potassium 4.8 mEq/L 3.5 - 5.1 Chloride 104 mEq/L 98 - 107 Carbon Dioxide 28 mEq/L 21 - 32 Calcium 9.2 mg/dL 8.5 - 10.1 Alk. Phosphatase 86 mg/dL 46 - 116 Total Bilirubin 0.5 mg/dL 0.2 - 1.0 Ast (Sgot) 14 U/L Low 15 - 37 Alt (SGPT) 29 U/L 12 - 78 Albumin 3.7 g/dL 3.4 - 5.0 Total Protein 7.2 g/dL 6.4 - 8.2 A/G Ratio 1.06 CALC 1.00 - 1.90 GFR >= 60 mL/min >60 GFR >= 60 mL/min >60 4 Lipid Profile 02/06/2020 [facility] Organizational Effectiveness Director: Dr Thaddeus [place] [address] [phone] Cholesterol 170 mg/dL 131 - 200 Triglycerides 87 mg/dL 30 - 150 HDL Cholesterol 55 mg/dL 35 - 60 LDL (Calculated) 98 CALC 50 - 159 Laboratory test finding 02/06/2020 [facility] Organizational Effectiveness Director: Dr Thaddeus [place] [address] [phone] PSA 0.61 ng/mL <4.00 5 1 Units are mL/min/1.73 m2 Chronic Kidney Disease Staging per NKF: Stage I & II GFR >=60 Normal to Mildly Decreased Stage III GFR 30-59 Moderately Decreased Stage IV GFR 15-29 Severely Decreased Stage V GFR <15 Very Little GFR Left ESRD GFR <15 on HUM[employer] RESOURCES ASSOCIATE 2 Lab Result Notes: Pre-Diabetes 5.7 - 6.4 % Diabetes = or > 6.5% 3 100-125 mg/dL PRE-DIABET ES/FASTING >126 mg/dL DIABETES/FASTING 4 CHRONIC KIDNEY DISEASE STAGI NG PER NKF STAGE I & II GFR >= 60 NORMAL TO MILDLY DECREASED STAGE III GFR 30-59 MODERATELY DECREASED STAGE IV GFR 15-29 SEVERELY DECREASED STAGE V GFR <15 VERY LITTLE GFR LEFT ESRD GFR <15 ON HUM[employer] RESOURCES ASSOCIATE 5 This assay was performed on the Siemens Dimension EXL using the B- Galactosidase/CPRG methodology and should not be compared interchangeably with other methods. The PSA should not be used alone as a screening test for the presence or absence of malignant disease. Procedures Date Code Description Status 02/28/2018 [id number] Colonoscopy Completed Medical Devices Description No Information Available Encounters Type Date Location Provider Dx Diagnosis Office Visit 02/07/2020 11:30a [facility] Chas Florence M.D. H92.09 Otalgia, unspecified ear E11.65 Type 2 diabetes mellitus wit h hyperglycemia J44.9 Chronic obstructive pulmonar y disease, unspecified G89.29 Other chronic pain G60.9 Hereditary and idiopathic ne uropathy, unspecified E78.5 Hyperlipidemia, unspecified G47.33 Obstructive sleep apnea (edmond lt) (pediatric) F41.9 Anxiety disorder, unspecifie d N40.0 Benign prostatic hyperplasia without lower urinry tract symp R25.1 Tremor, unspecified Z91.120 Pt intentl undrdose of meds regimen due to financl hardship Assessments Date Code Description Provider 02/07/2020 H92.09 Otalgia, unspecified ear Chas Florence M.D. 02/07/2020 E11.65 Type 2 diabetes mellitus with hy perglycemia Chas Florence M.D. 02/07/2020 J44.9 Chronic obstructive pulmonary di sease, unspecified Chas Florence M.D. 02/07/2020 G89.29 Other chronic pain Chas hallman M.D. 02/07/2020 G60.9 Hereditary and idiopathic neurop athy, unspecified Chas Florence M.D. 02/07/2020 E78.5 Hyperlipidemia, unspecified Moises [place] M.D. 02/07/2020 G47.33 Obstructive sleep apnea (adult) (pediatric) Chas Florence M.D. 02/07/2020 F41.9 Anxiety disorder, unspecified Tan [place] M.D. 02/07/2020 N40.0 Benign prostatic hyp erplasia without lower urinary tract symptoms Chas Florence M.D. 02/07/2020 R25.1 Tremor, unspecified Chas quevedo M.D. 02/07/2020 Z91.120 Patient's intentiona l underdosing of medication regimen due to financial hardship Chas Florence M.D. 02/06/2020 H92.09 Otalgia, unspecified ear Chas Florence M.D. 02/06/2020 H92.09 Otalgia, unspecified ear Lab Ani edule 02/06/2020 E11.65 Type 2 diabetes mellitus with hy perglycemia Chas Florence M.D. 02/06/2020 E11.65 Type 2 diabetes mellitus with hy perglycemia Lab Schedule 02/06/2020 E78.5 Hyperlipidemia, unspecified Moises [place] M.D. 02/06/2020 E78.5 Hyperlipidemia, unspecified Lab Schedule 02/06/2020 Z12.5 Encounter for screening for kai gnant neoplasm of prostate Chas Florence M.D. 02/06/2020 Z12.5 Encounter for screening for kai gnant neoplasm of prostate Lab Schedule Plan of Treatment 07/28/2019 - Chas Florence M.D.* * New Medication:* Zithromax Z-Shashi 250 mg Functional Status Description No Information Available Mental Status Description No Information Available Referrals Description No Information Available
--- OUTSIDE RECORDS SUMMARY | 2020-09-02 23:13 | CCD | Continuity of Care Document ---
Author Author Corey CHOU DO Organization Unknown Address [address] [place] [address] Phone [phone] Care Team Providers Care Fitness Supervisor Name Role Phone AUTM Unavailable Corey Wilson M.D. AUTM [phone] Problems Active Problems Provider Date Essential hypertension [...] smoker Recreational Drug Use Current Drug User MARIJUAN A TINCTURE TID Smoking Status Reviewed: 06/25/20 Patient is a former smoker Allergies, Adverse Reactions, Alerts Active Allergies Reaction Severity Comments Date Penicillin THROAT CLOSING 03/24/2017 Codeine SEVERE ITCHING 03/24/2017 Advil FACE SWELLING 03/24/2017 Bee Sting THROAT CLOSING 03/24/2017 Medications Active Medications SIG Qnty Indications Ordering Provide r Date Omeprazole 40mg Capsules DR 1 by mouth twice a day (dysphagia, reflux) 60caps R13.12 Corey Adame MD 05/15/2020 Epipen 2-Shashi 0.3mg/0 .3ML Solution Auto-Inject as directed Unknown Symbicort 160-4.5mcg/Act Aerosol 2 puff twice a day 10.200gm Corey Chou DO Propranolol HCL 20mg Tablets 1 tab [...] 2 puffs qid/prn 18gm Corey Chou, DO Immunizations CPT Code Status Date Vaccine Lot # [id number] Given 05/20/2020 Afluria, Quadrivalent, 0.5ml , [facility]# [id number] Vital Signs Date Vital Result Comment 06/25/2020 8:36am BP Systolic 142 mmHg BP Diastolic 90 mmHg Heart Rate 93 /min O2 % BldC Oximetry 95 % Height 70 inches 5'10" Weight 255.00 lb BMI (Body Mass Index) 36.6 kg/m2 [place] Body Weight 166 lb Weight 115.668 kg BSA (Body Surface Area) 2.31 m2 05/15/2020 2:31pm BP Systolic 139 mmHg BP Diastolic 60 mmHg Height 70 inches 5'10" Weight 250.00 lb BMI (Body Mass Index) 35.9 kg/m2 [place] Body Weight 166 lb Weight 113.400 kg BSA (Body Surface Area) 2.29 m2 Results Test Acquired Date Facility Test Result H/L Range Note FVL/Antolin 06/25/2020 [facility] SEE IMAGE FVC-Pred 4.61 L FVC-Pre 2.03 L FVC-%Pred-Pre 44 L FVC-LLN 3.67 L Fev1-Pred 3.44 L Fev1-Pre 0.86 L Fev1-%Pred-Pre 25 L Fev1-LLN 2.65 L Fev6-Pred 4.37 L Fev6-Pre 2.01 L Fev6-%Pred-Pre 45 L Fev6-LLN 3.46 L Gia5urz-Ukor 75 % Law0xfi-Lfx 42 % Aqd4fuj-%Pred-Pre 56 % Qnj6nxw-YTZ 65 % Uxl1wsx-Mzts 95 % Puy1zhm-Xlp 99 % Pzc6ski-%Pred-Pre 103 % FEFMax-Pred 8.82 L/E/sec FEFMax-Pre 3.05 L/E/sec FEFMax-%Pred-Pre 34 L/E/sec FEFMax-LLN 6.50 L/E/sec Yth0186-Dpot 2.72 L/E/sec Xan2257-Avk 0.36 L/E/sec Kxz2430-%Pred-Pre 13 L/E/sec Ecf1001-PCS 1.12 L/E/sec ExpTime-Pre 6.44 sec Vsw4pug4-Ybbs 78 % Gpk9mhr9-Qim 43 % Dzk6vdo1-%Pred-Pre 54 % Qzl7rqr3-ZCP 69 % FVL/[place] 04/10/2020 [facility] SEE IMAGE FVC-Pred 4.61 L FVC-Pre 2.59 L FVC-%Pred-Pre 56 L FVC-LLN 3.67 L Fev1-Pred 3.44 L Fev1-Pre 1.05 L Fev1-%Pred-Pre 30 L Fev1-LLN 2.65 L Fev6-Pred 4.37 L Fev6-Pre 2.58 L Fev6-%Pred-Pre 59 L Fev6-LLN 3.46 L Krr6eru-Rwku 75 % Rpw9isq-Ewk 41 % Fqs2oax-%Pred-Pre 54 % Yzl9uqx-QRK 65 % Vtd3ola-Lrvr 95 % Zhj4bib-Lts 100 % Lyb9aew-%Pred-Pre 104 % FEFMax-Pred 8.82 L/E/sec FEFMax-Pre 4.38 L/E/sec FEFMax-%Pred-Pre 49 L/E/sec FEFMax-LLN 6.50 L/E/sec Shx9473-Hiop 2.72 L/E/sec Gcj2658-Lwm 0.46 L/E/sec Zer0501-%Pred-Pre 16 L/E/sec Dwy7305-CPQ 1.12 L/E/sec ExpTime-Pre 6.33 sec Tnq4mjf7-Glei 78 % Piy3kqo5-Xdp 41 % Jqk1foc4-%Pred-Pre 52 % Wnu4mwo3-HVU 69 % Procedures Date Code Description Status 04/10/2020 67767 Spirometry Completed Medical Devices Description No Information Available Encounters Type Date Location Provider Dx Diagnosis Office Visit 05/15/2020 2:15p [facility] Corey limon MD R13.12 Dysphagia, oropharyngeal phase R49.0 Dysphonia Office Visit 04/10/2020 9:30a [facility] Pulmonary/Thoracic D kurt Chou, DO J43.1 Panlobular emphysema Z87.891 Personal history of nicotine dependence Office Visit 02/14/2020 2:10p [facility] ENT[facility]GI Practice Zana Tracy MD H90.6 Mixed conductive and sensorineural hearing loss, bilateral Assessments Date Code Description Provider 05/15/2020 R13.12 Dysphagia, oropharyngeal phase D kurt Adame MD 05/15/2020 R49.0 Dysphonia Corey Adame MD 04/10/2020 J43.1 Panlobular emphysema Corey quiles, DO 04/10/2020 Z87.891 Personal history of nicotine dep endence Corey Chou, DO 02/14/2020 H90.6 Mixed conductive and sensorineur al hearing loss, bilateral Zana Tracy MD Plan of Treatment Future Appointment(s):* 06/27/2020 8:13 am - Corey Adame MD at [facility] ENT/GI Practice 05/15/2020 - Corey Adame MD* R13.12 Dysphagia, oropharyngeal phase * R49.0 Dysphonia * * New Medication:* Omeprazole 40 mg * New Orders:* EGD with poss dil, Ordered: 05/15/20 * Comments:* Has dysphagia and coughing spells. Has feeling of foreign body in right neck when swallowing.He denies any pyrosis or regurgitation. He does have hoarse voice quality * Recommendations:* BA swallow--r/o lesions, r/o zenkers. Empiric trial on PPI BID Will do EGD Functional Status Description No Information Available Mental Status Description No Information Available Referrals Refer to Reason for Referral Status Appt Date Coery Adame MD Throat problem, weight loss 20lbs in las t 2.5 weeks, dysphia Scheduled 05/15/2020 [facility], Gastroenterology [address] [facility], [address] [place] [address] [phone] Radiology/Procedure APPROVED G0297 Closed
--- OUTSIDE RECORDS SUMMARY | 2020-09-02 23:13 | CCD | Continuity of Care Document ---
Author Author Corey CHOU DO Organization Unknown Address [address] [place] [address] Phone [phone] Care Team Providers Care Interior Decorator Paperhanging Name Role Phone Chas Louise M.D. AUTM [phone] AUTM Unavailable Corey Wilson M.D. AUTM [phone] Problems Active Problems Provider Date Essential hypertension [...] SIG Qnty Indications Ordering Provide r Date Ciprofloxacin HCL 500mg Tablets 1 tab by mouth twice a day 20tabs JANETH Willoughby 07/09/2020 Ipratropium [place]/Albuterol Sulfate 0.5-2.5(3)mg/3ML Solution 1 vial three times a day as needed 540ml Corey Chou DO 07/08/2020 Prednisone 10mg Tablets 20mg by mouth x5days, 10mg by mouth x5 days, 5mg by mouth x5days then stop 20tabs Corey Chou, DO 07/08/2020 Nystatin 026065Bccr/ML Suspension take 4 milliliters by mouth/swish and swallow 4 times per day x 10 days 200ml Corey Adame MD 06/27/2020 Spiriva Respimat 2.5mcg/Act Aeroso l 2 puffs every day-sample only 4gm Corey Chou, DO 06/25/[address] 1 [...] CPT Code Status Date Vaccine Lot # [id number] Given 05/20/2020 Afluria, Quadrivalent, 0.5ml , [facility]# [id number] Vital Signs Date Vital Result Comment 06/25/2020 8:36am BP Systolic 142 mmHg BP Diastolic 90 mmHg Heart Rate 93 /min O2 % BldC Oximetry 95 % Height 70 inches 5'10" Weight 255.00 lb BMI (Body Mass Index) 36.6 kg/m2 [place] Body Weight 166 lb Weight 115.668 kg BSA (Body Surface Area) 2.31 m2 05/15/2020 2:31pm BP Systolic 139 mmHg BP Diastolic 60 mmHg Height 70 inches 5'10" Weight 250.00 lb BMI (Body Mass Index) 35.9 kg/m2 [place] Body Weight 166 lb Weight 113.400 kg BSA (Body Surface Area) 2.29 m2 Results Test Acquired Date Facility Test Result H/L Range Note FVL/Antolin 06/25/2020 [facility] SEE IMAGE FVC-Pred 4.61 L FVC-Pre 2.03 L FVC-%Pred-Pre 44 L FVC-LLN 3.67 L Fev1-Pred 3.44 L Fev1-Pre 0.86 L Fev1-%Pred-Pre 25 L Fev1-LLN 2.65 L Fev6-Pred 4.37 L Fev6-Pre 2.01 L Fev6-%Pred-Pre 45 L Fev6-LLN 3.46 L Qmm3diu-Nydh 75 % Iyu7ibd-Mcj 42 % Kcv5hrn-%Pred-Pre 56 % Hmx0mag-VHX 65 % Nht9vhx-Pmbt 95 % Ydu4xfr-Fez 99 % Tzj6hei-%Pred-Pre 103 % FEFMax-Pred 8.82 L/E/sec FEFMax-Pre 3.05 L/E/sec FEFMax-%Pred-Pre 34 L/E/sec FEFMax-LLN 6.50 L/E/sec Kep1341-Fozi 2.72 L/E/sec Jjm1435-Prc 0.36 L/E/sec Rjq1124-%Pred-Pre 13 L/E/sec Ljo2527-AIQ 1.12 L/E/sec ExpTime-Pre 6.44 sec Xit7rim3-Fmfe 78 % Gzz8kzf9-Tiy 43 % Xdo2vjc8-%Pred-Pre 54 % Loo9qwq9-JTY 69 % FVL/Antolin 04/10/2020 [facility] SEE IMAGE FVC-Pred 4.61 L FVC-Pre 2.59 L FVC-%Pred-Pre 56 L FVC-LLN 3.67 L Fev1-Pred 3.44 L Fev1-Pre 1.05 L Fev1-%Pred-Pre 30 L Fev1-LLN 2.65 L Fev6-Pred 4.37 L Fev6-Pre 2.58 L Fev6-%Pred-Pre 59 L Fev6-LLN 3.46 L Cdx2qwp-Aaws 75 % Nmt8vds-Xie 41 % Qth3tcq-%Pred-Pre 54 % Ghw5cgf-EMC 65 % Ber9uqd-Qaqw 95 % Mov8guh-Bkf 100 % Vow4nlf-%Pred-Pre 104 % FEFMax-Pred 8.82 L/E/sec FEFMax-Pre 4.38 L/E/sec FEFMax-%Pred-Pre 49 L/E/sec FEFMax-LLN 6.50 L/E/sec Tun1079-Xeff 2.72 L/E/sec Shu5765-Qct 0.46 L/E/sec Gzc3845-%Pred-Pre 16 L/E/sec Bpv7478-AYV 1.12 L/E/sec ExpTime-Pre 6.33 sec Lcv8gaq8-Awqd 78 % Bqm4ury4-Fie 41 % Vjr5idd2-%Pred-Pre 52 % Vdi9ncw2-VTO 69 % Procedures Date Code Description Status 06/27/2020 62062 Dilate Esophagus Unguided Sound Or Bougie Completed 06/27/2020 05475 Endoscopy Upper GI Complex Diagn ostic Completed 06/25/2020 45878 Spirometry Completed 04/10/2020 97676 Spirometry Completed Medical Devices Description No Information Available Encounters Type Date Location Provider Dx Diagnosis Office Visit 06/25/2020 8:30a [facility] Alejandro Chou DO J44.9 Chronic obstructive pulmonar y disease, unspecified R05 Cough Office Visit 05/15/2020 2:15p [facility] Corey limon MD R13.12 Dysphagia, oropharyngeal phase R49.0 Dysphonia Office Visit 04/10/2020 9:30a [facility] Alejandro Chou DO J43.1 Panlobular emphysema Z87.891 Personal history of nicotine dependence Office Visit 02/14/2020 2:10p [facility] Zana Tracy MD H90.6 Mixed conductive and sensorineural hearing loss, bilateral Assessments Date Code Description Provider 06/27/2020 B37.0 Candidal stomatitis Corey Adame MD 06/27/2020 R13.11 Dysphagia, oral phase Corey limon MD 06/27/2020 R13.12 Dysphagia, oropharyngeal phase Alejandro Adame MD 06/25/2020 J44.9 Chronic obstructive pulmonary di sease, unspecified Corey Chou DO 06/25/2020 R05 Cough Corey Chou , DO 05/15/2020 R13.12 Dysphagia, oropharyngeal phase D kurt Adame MD 05/15/2020 R49.0 Dysphonia Corey Adame MD 04/10/2020 J43.1 Panlobular emphysema Corey whitneychaka, DO 04/10/2020 Z87.891 Personal history of nicotine dep endence Corey Chou, DO 02/14/2020 H90.6 Mixed conductive and sensorineur al hearing loss, bilateral Zana Tracy MD Plan of Treatment 06/25/2020 - Corey Chou, DO* J44.9 Chronic obstructive pulmonary disease, unspecified * R05 Cough * * Comments:* ~ Having reviewed the history, physical, and diagnostic findings with the patient, he appears to have recovered from his recent exacerbation, and his oxygen saturations are now at their usual baseline. On reviewing his history, he had been using an anticholinergic inhaled therapy, but felt it was not benefiting him much. Given his low flow rates, we will initiate Spiriva Respimat in an effort to increase bronchodilator effect. Will plan to speak with him regarding the results, and send a prescription if he finds it effective. He will keep his previously scheduled routine follow-up. * Follow up:* Add Spiriva Respimat daily. If after sample there is relief, then we will send Rx. Keep prior routine follow-up as scheduled. Functional Status Description No Information Available Mental Status Description No Information Available Referrals Refer to Reason for Referral Status Appt Date Corey Adame MD Throat problem, weight loss 20lbs in las t 2.5 weeks, dysphia Scheduled 05/15/2020 [facility], Gastroenterology [address], [address] [place] [id number] [phone] Radiology/Procedure APPROVED G0297 Closed
--- OUTSIDE RECORDS SUMMARY | 2020-09-02 23:13 | CCD | Continuity of Care Document ---
Author Author Corey FLORENCE M.D. 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 45gm Chas Florence M.D. 07/17/2020 Prednisone 20mg Tablets 3 tabs x 3 days, then 2 tabs x3 days then 1 tab x 3 days then 1/2 tab x 4 days. 20tabs J43.1 Chas Florence M.D. 06/12/2020 Azithromycin 250mg Tablets take two tablets today, then one tablet for four days 6tabs J43.1 Col jacob Santana MD 06/12/2020 Atorvastatin Calcium 10mg Tablets 1 by mouth every day 30tabs Chas Florence M.D. 11/28/2019 Oxycodone-Acetaminophen 5-325mg Ta blets 1 Tab Q6 HRS prn Severe Pain 20tabs Chas Florence M.D. 11/17/2019 Tramadol HCL 50mg Tablets one tablet PO bid x 7 days 14tabs H60.8x3 Thaddeus Santana MD 11/15/2019 Nebulizer Device use as d irected 1mariel Florence M.D. 12/22/2018 Nebulizer Kit/Tubing/Mouthpiece K it use four times a day dx j44.9 1mariel Florence M.D. 0 12/22/2018 Sildenafil Citrate 20mg Tablets 2-5 tab by mouth 1 hour before intercourse 25tabs Chas Florence M.D. 11/25/2018 Onetouch Ultra 2 w/Device Kit test twice a day and as directed e11.65 1mariel Florence M.D. 07/29/2018 Onetouch Ultra Blue Strips use twice daily to check blood sugar dx e11.65 200unlaisha simpson M.D. 07/29/2018 Onetouch Ultrasoft Lancets Misc test twice a day e11.65 200unlaisha Florence M.D. 07/29/19 19 Tamsulosin HCL 0.4mg Capsules 2 daily 1/2 hour after same meal 180caps Chas Florence M.D. 2017 Medical Marijuana E78.5 Ernesto Martell 03/10/[address] Part 2 PO Daily 180caps R20.2 Cahs Florence M.D. 02/03/2017 Denavir 1% Cream apply [...] day as needed Corey Chou DO Ipratropium [place]/Albuterol Sulfate 0.5-2.5(3)mg/3ML Solution 1 vial tid as needed Corey Rodríguez DO Amitriptyline HCL 25mg Tablets 1 po hs titrate up 3 hs Justice Patton MD Propranolol HCL 20mg Tablets take 1 tablet by mouth twice daily 180tabs Chas Florence M.D. Glimepiride 4mg Tablets take one tablet by mouth twice a day Unknown Metformin HCL 500mg Tablets take one tablet by mouth twice a day Unknown Levofloxacin 500mg Tablets 1 by mouth every day x 7 days Unknown Medications Administered in Office Medication SIG Qnty Indications Ordering Provider Date Administration Of Flu Vaccine Inj ection Chas Floernce M.D. 04/26/2018 Immunizations CPT Code Status Date Vaccine Lot # U-Flu Given 04/10/2020 Influenza,Unspecified [id number] Given 04/26/2018 Influenza Virus Vaccine, Quadrivalent ([id number]), Derived From Cell [id number] Vital Signs Date Vital Result Comment 08/23/2020 10:47am BP Systolic 130 mmHg BP Diastolic 78 mmHg Heart Rate 88 /min Height 69.0 inches 5'9" Weight 251.00 lb O2 % BldC Oximetry 91 % O2 Saturation Level with Exercise 87 % BMI (Body Mass Index) 37.1 kg/m2 06/12/2020 9:39am BP Systolic 136 mmHg BP Diastolic 84 mmHg Heart Rate 88 /min Height 69.0 inches 5'9" Weight 257.00 lb O2 % BldC Oximetry 90 % BMI (Body Mass Index) 37.9 kg/m2 Results Test Acquired Date Facility Test Result H/L Range Note Arterial Blood Gas 08/13/2020 [facility] [address] [address] [place], [place] [id number] [phone] ABG pH (Arterial) 7.394 units Normal 7.350-7.450 ABG Partial Pressure Co2 44.2 mmHg Normal 35.0-45.0 ABG Partial Pressure O2 175.6 mmHg High 75.0-100.0 ABG Total Co2 27.8 mEq/L Normal 23.0-31.0 ABG Hco3 26.4 mEq/L High 22.0-26.0 ABG Base Excess 1.1 Normal -2.0-2.0 ABG Standard Hco3 25.5 mEq/L Normal 22.0-26.0 ABG O2 Saturation 99.5 % High 95.0-99.0 CBC With Differential 08/13/2020 [facility] [address] [place], [place] [id number] [phone] White Blood Count 15.5 10 High 4.0-10.0 Red Blood Count 5.00 10 Normal 4.30-6.10 Hemoglobin 13.8 g/dL Normal 13.5-17.5 Hematocrit 44.0 % Normal 42.0-52.0 Mean Corpuscular Volume 88.0 fl Normal 80.0-96.0 Mean Corpuscular Hemoglobin 27.6 pg Normal 27.0-33.0 Mean Corpuscular HGB Conc 31.4 g/dL Low 32.0-36.5 Red Cell Distribution Width 13.6 % Normal 11.5-14.5 Platelet Count, Automated 464 10 High 150-450 Neutrophils % 77.5 % High 36.0-66.0 Lymph % 10.4 % Low 24.0-44.0 [place] % 7.0 % High 0.0-5.0 Eos % 3.6 % High 0.0-3.0 Baso % 0.5 % Normal 0.0-1.0 Immature Granulocyte % 1.0 % Normal 0-3.0 Nucleated Red Blood Cell % 0.0 % Normal 0-0 Neutrophils # 12.0 10 High 1.5-8.5 Lymph # 1.6 10 Normal 1.5-5.0 [place] # 1.1 10 High 0.0-0.8 Eos # 0.6 10 High 0.0-0.5 Baso # 0.1 10 Normal 0.0-0.2 Liver Profile 08/13/2020 [facility] [address], [place] [id number] [phone] Ast/Sgot 16 U/L Normal 7-37 Alt/SGPT 27 U/L Normal 12-78 Alkaline Phosphatase 118 U/L High 45-117 Bilirubin,Total 0.2 mg/dL Normal 0.2-1.0 Bilirubin,Direct 0.1 mg/dL Normal 0.0-0.2 Total Protein 6.9 GM/DL Normal 6.4-8.2 Albumin 2.9 GM/DL Low 3.2-5.2 Albumin/Globulin Ratio 0.7 Normal Basic Metabolic Profile 08/13/2020 [facility] [address] [place] [address] [phone] Glucose, Fasting 237 mg/dL High 70-100 Blood Urea Nitrogen 14 mg/dL Normal 7-18 Creatinine For GFR 1.00 mg/dL Normal 0.70-1.30 Glomerular Filtration Rate > 60.0 Normal >49 1 Sodium Level 137 mEq/L Normal 136-145 Potassium Serum 4.5 mEq/L Normal 3.5-5.1 Chloride Level 101 mEq/L Normal 98-107 Carbon Dioxide Level 31 mEq/L Normal 21-32 Anion Gap 5 mEq/L Low 8-16 Calcium Level 9.0 mg/dL Normal 8.8-10.2 Respiratory Panel 08/13/2020 [facility] [address] [place] [address] [phone] Respiratory Panel This respiratory <SEE NOTE> 2 Comprehensive Chem Profile 06/12/2020 [facility] Service Technician: Dr Thaddeus Santana [place], [place] [id number] [phone] Glucose 221 mg/dL High 74 - 99 3 BUN 22 mg/dL High 7 - 18 Creatinine 1.1 mg/dL 0.6 - 1.3 Sodium 140 mEq/L 136 - 145 Potassium 4.7 mEq/L 3.5 - 5.1 Chloride 102 mEq/L 98 - 107 Carbon Dioxide 30 mEq/L 21 - 32 Calcium 9.2 mg/dL 8.5 - 10.1 Alk. Phosphatase 120 mg/dL High 46 - 116 Total Bilirubin 0.5 mg/dL 0.2 - 1.0 Ast (Sgot) 13 U/L Low 15 - 37 Alt (SGPT) 26 U/L 12 - 78 Albumin 3.6 g/dL 3.4 - 5.0 Total Protein 7.0 g/dL 6.4 - 8.2 A/G Ratio 1.06 CALC 1.00 - 1.90 GFR >= 60 mL/min >60 GFR >= 60 mL/min >60 4 A1c 06/12/2020 [facility] Pest Control Service Technician: Dr Thaddeus Santana [place], [place] [id number] [phone] Hba1c 8.5 % High <5.7 5 Est Avg Glucose 197 mg/dL High 60 - 110 CBC With Differential 04/30/2020 [facility] [address], [place] [id number] [phone] White Blood Count 11.9 10 High 4.0-10.0 [...] 36.0-66.0 Lymph % 14.3 % Low 24.0-44.0 [place] % 6.8 % High 0.0-5.0 Eos % 1.9 % Normal 0.0-3.0 Baso % 0.8 % Normal 0.0-1.0 Immature Granulocyte % 0.4 % Normal 0-3.0 Nucleated Red Blood Cell % 0.0 % Normal 0-0 Neutrophils # 9.0 10 High 1.5-8.5 Lymph # 1.7 10 Normal 1.5-5.0 [place] # 0.8 10 Normal 0.0-0.8 Eos # 0.2 10 Normal 0.0-0.5 Baso # 0.1 10 Normal 0.0-0.2 Comprehensive Metabolic Profil 04/30/2020 [address] [place] [address] [phone] Glucose, Fasting 188 mg/dL High 70-100 Blood Urea Nitrogen 20 mg/dL High 7-18 Creatinine For GFR 1.02 mg/dL Normal 0.70-1.30 Glomerular Filtration Rate > 60.0 Normal >49 6 Sodium Level 138 mEq/L Normal 136-145 Potassium [...] Ratio 1.1 Normal Laboratory test finding 04/30/2020 [address] [place] [address] [phone] Thyroid Stimulating Hormone 1.240 uIU/ML Normal 0. 358-3.740 Free T4 1.09 ng/dL Normal 0.76-1.46 Total T3 97.8 ng/dL Normal 60.0-181.0 Thyroid Peroxidase Antibody 31.2 U/ML Normal <60.0 Thyroglobulin Antibody < 15.0 U/ML Normal <60.0 1 Units are mL/min/1.73 m2 Chronic Kidney Disease Staging per NKF: Stage I & II GFR >=60 Normal to Mildly Decreased Stage III GFR 30-59 Moderately Decreased Stage IV GFR 15-29 Severely Decreased Stage V GFR <15 Very Little GFR Left ESRD GFR <15 on PARK AIDE 2 This respiratory PCR panel d etects Influenza A H1, H3 and 2009 H1 viruses, Influenza B virus, Resp iratory Syncytial Virus, Human metapneumovirus, Parainfluenza virus 1, 2, 3 and 4, Adenovirus, Rhinovirus/Enterovirus, Coronavirus HKU1, NL63, OC43, 229E and SARS-CoV-2 (COVID 19), Bordetella pertussis, Bordetella parapertussis, Mycoplasma pneumoniae and Chlamydia pneumoniae. NEGATIVE by MULTIPLEXED NUCLEIC ACID PCR SARS-CoV-2 (COVID 19) NEGATIVE - SARS-CoV-2 (COVID19) 3 100-125 mg/dL PRE-DIABET ES/FASTING >126 mg/dL DIABETES/FASTING 4 CHRONIC KIDNEY DISEASE STAGI NG PER NKF STAGE I & II GFR >= 60 NORMAL TO MILDLY DECREASED STAGE III GFR 30-59 MODERATELY DECREASED STAGE IV GFR 15-29 SEVERELY DECREASED STAGE V GFR <15 VERY LITTLE GFR LEFT ESRD GFR <15 ON P[address] AIDE 5 Lab Result Notes: Pre-Diabetes 5.7 - 6.4 % Diabetes = or > 6.5% 6 Units are mL/min/1.73 m2 Chronic Kidney Disease Staging per NKF: Stage I & II GFR >=60 Normal to Mildly Decreased Stage III GFR 30-59 Moderately Decreased Stage IV GFR 15-29 Severely Decreased Stage V GFR <15 Very Little GFR Left ESRD GFR <15 on PARK AIDE Procedures Date Code Description Status 02/28/2018 [id number] Colonoscopy Completed Medical Devices Description No Information Available Encounters Type Date Location Provider Dx Diagnosis Office Visit 06/12/2020 9:30a [facility] Chas Florence M.D. J43.1 Panlobular emphysema J44.9 Chronic obstructive pulmonar y disease, unspecified E11.65 Type 2 diabetes mellitus wit h hyperglycemia G89.29 Other chronic pain G60.9 Hereditary and idiopathic ne uropathy, unspecified G47.33 Obstructive sleep apnea (edmond lt) (pediatric) F41.9 Anxiety disorder, unspecifie d L20.84 Intrinsic (allergic) eczema Assessments Date Code Description Provider 06/12/2020 J43.1 Panlobular emphysema Chas simpson M.D. 06/12/2020 J44.9 Chronic obstructive pulmonary di sease, unspecified Chas Florence M.D. 06/12/2020 E11.65 Type 2 diabetes mellitus with hy perglycemia Chas Florence M.D. 06/12/2020 G89.29 Other chronic pain Chas hallman M.D. 06/12/2020 G60.9 Hereditary and idiopathic neurop athy, unspecified Chas Florence M.D. 06/12/2020 G47.33 Obstructive sleep apnea (adult) (pediatric) Chas Florence M.D. 06/12/2020 F41.9 Anxiety disorder, unspecified Tan Florence M.D. 06/12/2020 L20.84 Intrinsic (allergic) eczema Moises Florence M.D. Plan of Treatment Future Appointment(s):* 10/10/2020 10:00 am - Chas Florence M.D. at [facility] Functional Status Description No Information Available Mental Status Description No Information Available Referrals Description No Information Available
--- OUTSIDE RECORDS SUMMARY | 2020-09-02 23:14 | CCD ---
Author Author [facility] Organization [facility] Address Unknown Phone Unavailable Care Team Providers Care Shoe Stitcher Odd Name Role Phone Dany, Brittnee PIT AND AUXILIARIES SUPERVISOR Unavailable Unavailable Dany, Brittnee PIT AND AUXILIARIES SUPERVISOR Unavailable Unavailable Dany, Brittnee PIT AND AUXILIARIES SUPERVISOR Unavailable Unavailable Dany, Brittnee PIT AND AUXILIARIES SUPERVISOR Unavailable Unavailable Dany, Brittnee PIT AND AUXILIARIES SUPERVISOR Unavailable Unavailable Dany, Brittnee PIT AND AUXILIARIES SUPERVISOR Unavailable Unavailable Dany, Brittnee PIT AND AUXILIARIES SUPERVISOR Unavailable Unavailable Dany, Brittnee PIT AND AUXILIARIES SUPERVISOR Unavailable Unavailable Dany, Brittnee PIT AND AUXILIARIES SUPERVISOR Unavailable Unavailable Dany, Brittnee PIT AND AUXILIARIES SUPERVISOR Unavailable Unavailable Dany, Brittnee PIT AND AUXILIARIES SUPERVISOR Unavailable Unavailable Dany, Brittnee PIT AND AUXILIARIES SUPERVISOR Unavailable Unavailable Dany, Brittnee PIT AND AUXILIARIES SUPERVISOR Unavailable Unavailable Dany, Brittnee PIT AND AUXILIARIES SUPERVISOR Unavailable Unavailable Dany, Brittnee PIT AND AUXILIARIES SUPERVISOR Unavailable Unavailable Dany, Brittnee PIT AND AUXILIARIES SUPERVISOR Unavailable Unavailable Dany, Brittnee PIT AND AUXILIARIES SUPERVISOR Unavailable Unavailable Dany, Brittnee PIT AND AUXILIARIES SUPERVISOR Unavailable Unavailable Dany, Brittnee PIT AND AUXILIARIES SUPERVISOR Unavailable Unavailable Dany, Brittnee PIT AND AUXILIARIES SUPERVISOR Unavailable Unavailable Dany, Brittnee PIT AND AUXILIARIES SUPERVISOR Unavailable Unavailable Dany, Brittnee PIT AND AUXILIARIES SUPERVISOR Unavailable Unavailable Dany, Brittnee PIT AND AUXILIARIES SUPERVISOR Unavailable Unavailable Dany, Brittnee PIT AND AUXILIARIES SUPERVISOR Unavailable Unavailable Dany, Brittnee PIT AND AUXILIARIES SUPERVISOR Unavailable Unavailable Dany, Brittnee PIT AND AUXILIARIES SUPERVISOR Unavailable Unavailable Dany, Brittnee PIT AND AUXILIARIES SUPERVISOR Unavailable Unavailable Kaveh, L Jena PA Unavailable Unavailable Kaveh, L Jena PA Unavailable Unavailable Kaveh, L Jena PA Unavailable Unavailable Kaveh, L Jena PA Unavailable Unavailable Kaveh, L Jena PA Unavailable Unavailable Kaveh, L Jena PA Unavailable Unavailable Kaveh, L Jena PA Unavailable Unavailable Kaveh, L Jena PA Unavailable Unavailable Kaveh, L Jena PA Unavailable Unavailable Kaveh, L Jena PA Unavailable Unavailable Kaveh, L Jena PA Unavailable Unavailable Kaveh, L Jena PA Unavailable Unavailable Kaveh, L Jena PA Unavailable Unavailable Kaveh, L Jena PA Unavailable Unavailable Kaveh, L Jena PA Unavailable Unavailable Kaveh, L Jena PA Unavailable Unavailable Kaveh, L Jena PA Unavailable Unavailable Kaveh, L Jena PA Unavailable Unavailable Kaveh, L Jena PA Unavailable Unavailable Kaveh, L Jena PA Unavailable Unavailable Kaveh, L Jena PA Unavailable Unavailable Kaveh, L Jena PA Unavailable Unavailable Kaveh, L Jena PA Unavailable Unavailable Zane Chou DO Unavailable Unavailable Zane Chou DO Unavailable Unavailable Zane Chou DO Unavailable Unavailable Zane Chou DO Unavailable Unavailable Rechlin, P Genie DO Unavailable Unavailable Rechlin, P Genie DO Unavailable Unavailable Rechlin, P Genie DO Unavailable Unavailable Rechlin, P Genie DO Unavailable Unavailable Rechlin, P Genie DO Unavailable Unavailable Rechlin, P Genie DO Unavailable Unavailable Rechlin, P Genie DO Unavailable Unavailable Rechlin, P Genie DO Unavailable Unavailable Rechlin, P Genie DO Unavailable Unavailable Rechlin, P Genie DO Unavailable Unavailable Rechlin, P Genie DO Unavailable Unavailable Rechlin, P Genie DO Unavailable Unavailable Rechlin, P Genie DO Unavailable Unavailable Rechlin, P Genie DO Unavailable Unavailable Rechlin, P Genie DO Unavailable Unavailable Rechlin, P Genie DO Unavailable Unavailable Rechlin, P Genie DO Unavailable Unavailable Rechlin, P Genie DO Unavailable Unavailable Rechlin, P Genie DO Unavailable Unavailable Rechlin, P Genie DO Unavailable Unavailable Rechlin, P Genie DO Unavailable Unavailable Rechlin, P Genie DO Unavailable Unavailable Rechlin, P Genie DO Unavailable Unavailable Rechlin, P Genie DO Unavailable Unavailable Rechlin, P Genie DO Unavailable Unavailable Rechlin, P Genie DO Unavailable Unavailable Rechlin, P Genie DO Unavailable Unavailable Rechlin, P Genie DO Unavailable Unavailable Rechlin, P Genie DO Unavailable Unavailable Rechlin, P Genie DO Unavailable Unavailable Rechlin, P Genie DO Unavailable Unavailable Rechlin, P Genie DO Unavailable Unavailable Rechlin, P Genie DO Unavailable Unavailable Rechlin, P Genie DO Unavailable Unavailable Rechlin, P Genie DO Unavailable Unavailable Rechlin, P Genie DO Unavailable Unavailable Rechlin, P Genie DO Unavailable Unavailable Rechlin, P Genie DO Unavailable Unavailable Rechlin, P Genie DO Unavailable Unavailable Rechlin, P Genie DO Unavailable Unavailable Rechlin, P Genie DO Unavailable Unavailable Rechlin, P Genie DO Unavailable Unavailable Rechlin, P Genie DO Unavailable Unavailable Rechlin, P Genie DO Unavailable Unavailable Alec Louise MD Unavailable Unavailable Alec Louise MD Unavailable Unavailable Alec Louise MD Unavailable Unavailable Alec Louise MD Unavailable Unavailable Alce Louise MD Unavailable Unavailable Alec Louise MD Unavailable Unavailable Alec Louise MD Unavailable Unavailable Alec Louise MD Unavailable Unavailable Alec Louise MD Unavailable Unavailable Alec Louise MD Unavailable Unavailable Alec Louise MD Unavailable Unavailable Alec Louise MD Unavailable Unavailable Alec Louise MD Unavailable Unavailable Alec Louise MD Unavailable Unavailable Alec Louise MD Unavailable Unavailable Alec Louise MD Unavailable Unavailable Alec Louise MD Unavailable Unavailable Alec Louise MD Unavailable Unavailable Alec Louise MD Unavailable Unavailable White F Chas Unavailable Unavailable White F Chas Unavailable Unavailable White, F Chas Unavailable Unavailable White F Chas Unavailable Unavailable White F Chas Unavailable Unavailable White, F Chas Unavailable Unavailable White, F Chas Unavailable Unavailable White, F Chas Unavailable Unavailable White, F Chas Unavailable Unavailable White F Chas Unavailable Unavailable White, F Chas Unavailable Unavailable White F Chas ALEJANDRE Unavailable Unavailable White F Chas Unavailable Unavailable White, F Chas Unavailable Unavailable White F Chas Unavailable Unavailable White, F Chas Unavailable Unavailable White, F Chas Unavailable Unavailable White, F Chas Unavailable Unavailable White, F Chas Unavailable Unavailable White, F Chas Unavailable Unavailable White, F Chas Unavailable Unavailable White F Chas Unavailable Unavailable White F Chas ALEJANDRE Unavailable Unavailable White F Chas ALEJANDRE Unavailable Unavailable White F Chas ALEJANDRE Unavailable Unavailable White F Chas ALEJANDRE Unavailable Unavailable [place] F Chas ALEJANDRE Unavailable Unavailable White F Chas ALEJANDRE Unavailable Unavailable White F Chas ALEJANDRE Unavailable Unavailable White F Chas ALEJANDRE Unavailable Unavailable White, F Chas ALEJANDRE Unavailable Unavailable White F Chas ALEJANDRE Unavailable Unavailable White F Chas ALEJANDRE Unavailable Unavailable White F Chas ALEJANDRE Unavailable Unavailable [place] F Chas ALEJANDRE Unavailable Unavailable [place] F Chas ALEJANDRE Unavailable Unavailable [place] F Chas ALEJANDRE Unavailable Unavailable [place] F Chas ALEJANDRE Unavailable Unavailable White F Chas ALEJANDRE Unavailable Unavailable [place] F Chas ALEJANDRE Unavailable Unavailable [place] F Chas ALEJANDRE Unavailable Unavailable [place] F Chas ALEJANDRE Unavailable Unavailable [place] F Chas ALEJANDRE Unavailable Unavailable [place] F Chas ALEJANDRE Unavailable Unavailable [place] F Chas ALEJANDRE Unavailable Unavailable [place] F Chas ALEJANDRE Unavailable Unavailable [place] F Chas ALEJANDRE Unavailable Unavailable [place] F Chas ALEJANDRE Unavailable Unavailable [place] F Chas ALEJANDRE Unavailable Unavailable [place] F Chas ALEJANDRE Unavailable Unavailable [place] F Chas ALEJANDRE Unavailable Unavailable [place] F Chas ALEJANDRE Unavailable Unavailable [place] F Chas ALEJANDRE Unavailable Unavailable [place] F Chas ALEJANDRE Unavailable Unavailable [place] F Chas ALEAJNDRE Unavailable Unavailable Zana Tracy MD Unavailable Unavailable Zana Tracy MD Unavailable Unavailable Zana Tracy MD Unavailable Unavailable Zana Tracy MD Unavailable Unavailable Zana Tracy MD Unavailable Unavailable Zana Tracy MD Unavailable Unavailable Zana Tracy MD Unavailable Unavailable Zana Tracy MD Unavailable Unavailable [place] MD Unavailable Unavailable [place], Zana ALEJANDRE Unavailable Unavailable [place], Zana ALEJANDRE Unavailable Unavailable [place], Zana ALEJANDRE Unavailable Unavailable [place], Zana MD Unavailable Unavailable [place], Zana MD Unavailable Unavailable [place], Zana ALEJANDRE Unavailable Unavailable [place], Zana MD Unavailable Unavailable [place], Zana MD Unavailable Unavailable [place], Zana MD Unavailable Unavailable [place], Zana ALEJANDRE Unavailable Unavailable [place], Zana ALEJANDRE Unavailable Unavailable [place], Zana ALEJANDRE Unavailable Unavailable [place], Zana ALEJANDRE Unavailable Unavailable [place], Zana ALEJANDRE Unavailable Unavailable [place], Zana ALEJANDRE Unavailable Unavailable [place], Zana ALEJANDRE Unavailable Unavailable [place], Zana ALEJANDRE Unavailable Unavailable [place] MD Unavailable Unavailable [place] MD Unavailable Unavailable REINDL, GENIE ALEJANDRE Unavailable Unavailable REINDL, GENIE ALEJANDRE Unavailable Unavailable REINDL, GENIE ALEJANDRE Unavailable Unavailable REINDL, GENIE ALEJANDRE Unavailable Unavailable REINDL, GENIE ALEJANDRE Unavailable Unavailable REINDL, GENIE ALEJANDRE Unavailable Unavailable REINDL, GENIE ALEJANDRE Unavailable Unavailable REINDL, GENIE ALEJANDRE Unavailable Unavailable REINDL, GENIE ALEJANDRE Unavailable Unavailable REINDL, GENIE ALEJANDRE Unavailable Unavailable REINDL, GENIE ALEJANDRE Unavailable Unavailable REINDL, GENIE ALEJANDRE Unavailable Unavailable REINDL, GENIE ALEJANDRE Unavailable Unavailable REINDL, GENIE ALEJANDRE Unavailable Unavailable REINDL, GENIE ALEJANDRE Unavailable Unavailable REINDL, GENIE ALEJANDRE Unavailable Unavailable REINDL, GENIE ALEJANDRE Unavailable Unavailable REINDL, GENIE ALEJANDRE Unavailable Unavailable REINDL, GENIE ALEJANDRE Unavailable Unavailable REINDL, GENIE ALEJANDRE Unavailable Unavailable REINDL, GENIE ALEJANDRE Unavailable Unavailable REINDL, GENIE ALEJANDRE Unavailable Unavailable REINDL, GENIE ALEJANDRE Unavailable Unavailable REINDL, GENIE ALEJANDRE Unavailable Unavailable REINDL, GENIE ALEJANDRE Unavailable Unavailable REINDL, GENIE ALEJANDRE Unavailable Unavailable REINDL, GENIE ALEJANDRE Unavailable Unavailable REINDL, GENIE ALEJANDRE Unavailable Unavailable REINDL, GENIE ALEJANDRE Unavailable Unavailable REINDL, GENIE ALEJANDRE Unavailable Unavailable REINDL, GENIE ALEJANDRE Unavailable Unavailable REINDL, GENIE ALEJANDRE Unavailable Unavailable REINDL, GENIE ALEJANDRE Unavailable Unavailable REINDL, GENIE ALEJANDRE Unavailable Unavailable REINDL, GENIE ALEJANDRE Unavailable Unavailable REINDL, GENIE ALEJANDRE Unavailable Unavailable REINDL, GENIE ALEJANDRE Unavailable Unavailable REINDL, GENIE ALEJANDRE Unavailable Unavailable REINDL, GENIE ALEJANDRE Unavailable Unavailable REINDL, GENIE ALEJANDRE Unavailable Unavailable REINDL, GENIE ALEJANDRE Unavailable Unavailable REINDL, GENIE ALEJANDRE Unavailable Unavailable REINDL, GENIE ALEJANDRE Unavailable Unavailable REINDL, GENIE ALEJANDRE Unavailable Unavailable Rosio Patton MD Unavailable Unavailable Rosio Patton MD Unavailable Unavailable Rosio Patton MD Unavailable Unavailable Rosio Patton MD Unavailable Unavailable Rosio Patton MD Unavailable Unavailable Rosio Patton MD Unavailable Unavailable Rosio Patton MD Unavailable Unavailable Rosio Patton MD Unavailable Unavailable Rosio Patton MD Unavailable Unavailable Rosio Patton MD Unavailable Unavailable Rosio Patton MD Unavailable Unavailable Rosio Patton MD Unavailable Unavailable Rosio Patton MD Unavailable Unavailable Rosio Patton MD Unavailable Unavailable Rosio Patton MD Unavailable Unavailable Rosio Patton MD Unavailable Unavailable Rosio Patton MD Unavailable Unavailable Rosio Patton MD Unavailable Unavailable Rosio Patton MD Unavailable Unavailable Rosio Patton MD Unavailable Unavailable Rosio Patton MD Unavailable Unavailable Rosio Patton MD Unavailable Unavailable Rosio Patton MD Unavailable Unavailable Rosio Patton MD Unavailable Unavailable Rosio Patton MD Unavailable Unavailable Rosio Patton MD Unavailable Unavailable Rosio Patton MD Unavailable Unavailable Rosio Patton MD Unavailable Unavailable Rosio Patton MD Unavailable Unavailable Rosio Patton MD Unavailable Unavailable Rosio Patton MD Unavailable Unavailable Rosio Patton MD Unavailable Unavailable Rosio Patton MD Unavailable Unavailable Rosio Patton MD Unavailable Unavailable Rosio Patton MD Unavailable Unavailable Rosio Patton MD Unavailable Unavailable Rosio Patton MD Unavailable Unavailable Rosio Patton MD Unavailable Unavailable Rosio Patton MD Unavailable Unavailable Rosio Patton MD Unavailable Unavailable Rosio Patton MD Unavailable Unavailable Rosio Patton MD Unavailable Unavailable Rosio Patton MD Unavailable Unavailable Rosio Patton MD Unavailable Unavailable Rosio Patton MD Unavailable Unavailable Rosio Patton MD Unavailable Unavailable Rosio Patton MD Unavailable Unavailable Pooja, O Samah MD Unavailable Unavailable Pooja, O Samah MD Unavailable Unavailable Pooja, O Samah MD Unavailable Unavailable Pooja, O Samah MD Unavailable Unavailable Pooja, O Samah MD Unavailable Unavailable Pooja, O Samah MD Unavailable Unavailable Pooja, O Samah MD Unavailable Unavailable Pooja, O Samah MD Unavailable Unavailable Pooja, O Samah MD Unavailable Unavailable Pooja, O Samah MD Unavailable Unavailable Pooja, O Samah MD Unavailable Unavailable Pooja, O Samah MD Unavailable Unavailable Pooja, O Samah MD Unavailable Unavailable Pooja, O Samah MD Unavailable Unavailable Pooja, O Samah MD Unavailable Unavailable Pooja, O Samah MD Unavailable Unavailable Pooja, O Samah MD Unavailable Unavailable Pooja, O Samah MD Unavailable Unavailable Pooja, O Samah MD Unavailable Unavailable Pooja, O Samah MD Unavailable Unavailable Pooja, O Samah MD Unavailable Unavailable Pooja, O Samah MD Unavailable Unavailable Pooja, O Samah MD Unavailable Unavailable Pooja, O Samah MD Unavailable Unavailable Pooja, O Samah MD Unavailable Unavailable Pooja, O Samah MD Unavailable Unavailable Pooja, O Samah MD Unavailable Unavailable Pooja, O Samah MD Unavailable Unavailable Pooja, O Samah MD Unavailable Unavailable Re-disclosure Warning The records that you are about to access may contain information from federally-assisted alcohol or drug abuse programs. If such information is present, then the following federally mandated warning applies: This information has been disclosed to you from records protected by federal confidentiality rules (42 CFR part 2). The federal rules prohibit you from making any further disclosure of this information unless further disclosure is expressly permitted by the written consent of the person to whom it pertains or as otherwise permitted by 42 CFR part 2. A general authorization for the release of medical or other information is NOT sufficient for this purpose. The Federal rules restrict any use of the information to criminally investigate or prosecute any alcohol or drug abuse patient.The records that you are about to access may contain highly sensitive health information, the redisclosure of which is protected by Article 27-F of the [facility] Public Health law. If you continue you may have access to information: Regarding HIV / AIDS; Provided by facilities licensed or operated by the [facility] Office of Mental Health; or Provided by the [facility] Office for People With Developmental Disabilities. If such information is present, then the following [facility] mandated warning applies: This information has been disclosed to you from confidential records which are protected by state law. State law prohibits you from making any further disclosure of this information without the specific written consent of the person to whom it pertains, or as otherwise permitted by law. Any unauthorized further disclosure in violation of state law may result in a fine or usp sentence or both. A general authorization for the release of medical or other information is NOT sufficient authorization for further disc losure. 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 Encounters Encounter Providers Location Date Indications Data Source(s ) Outpatient Attender: Genie Bashir/Demarcus/Tom/Kel hosea 06/25/2020 07:30:00 AM EST [facility] ([facility]) Office Visit Attender: Chas Zuleta 06/12 08:30:00 AM EST [facility] ([facility] ) Outpatient Attender: GENIE Murphy/Tom/Rein dl 05/15/2020 02:15:00 PM EDT [facility] ([facility]) Outpatient Attender: Genie Esposito/Tom/Kel ndl 04/10/2020 09:30:00 AM EDT [facility] ([facility]) Outpatient Attender: Zana Murphy/Tom/Reind l 02/14/2020 02:10:00 PM EDT [facility] ([facility]) Outpatient Attender: Chas Zuleta 02/06 11:30:00 AM EDT [facility] ([facility] ) Outpatient Attender: Zana Murphy/Tom/Luciusd l 12/13/2019 01:25:00 PM EDT [facility] ([facility] ) Outpatient Attender: Chas Zuleta 11/28 02:00:00 PM EDT [facility] ([facility] ) Outpatient Attender: Zana Cisse/Demarcus/Tom/Reind l 11/20/2019 10:00:00 AM EDT [facility] ([facility], ) Outpatient Attender: Zana Cisse/Demarcus/Tom/Luciusd james 11/17/2019 09:50:00 AM EDT [facility] ([facility], ) Outpatient Attender: Brittnee Zuleta 09:00:00 AM EDT [facility] ([facility] ) Outpatient Attender: Justice Patton MD Main office - [facility] 10/24/2019 11:15:00 AM EDT [facility] ([facility], ) Outpatient Attender: Justice Patton MD Main office - [facility] 07/25/2019 01:00:00 PM EST [facility] ([facility], ) Outpatient Attender: Jena OLGUIN Main Office 07/14/2019 08:15:0 0 AM EST [facility] ([facility]) Immunizations Vaccine Date Status Description Data Source(s) New in 2011. IIV4 05/20/2020 07:43:00 AM EST completed [facility] ([facility], ) This CVX code allows reporting of a vacc ination when formulation is unknown (for example, when recording a Influenza vaccination when noted on a vaccination card) 04/10/2020 12:24:00 PM EDT completed MEDEN T ([facility]) INFLUENZA VIRUS VACCINE QUADRIVALENT 2020-21 (6 MOS AN D UP) 04/10/2020 12:00:00 AM EDT completed [facility] Medications Medication Brand Name Start Date Product Form Dose Route Admi nistrative Instructions Pharmacy Instructions Status Indications Reaction Description Data Source(s) 30 mg 08/27/2020 12:00:00 AM EST capsule,delayed release (DR/EC) 240 TAKE TWO CAPSULES BY MOUTH EVERY MORNING AND 1 EVERY EVENING TAKE TWO CAPSULES BY MOUTH EVERY MORNING AND 1 EVERY EVENING SOLD: 08/29/2020 [facility] BLOOD SUGAR DIAGNOSTIC 08/16/2020 12:00:00 AM EST strip 100 ONE MISCELLANEOUS TWICE A DAY ONE MISCELLANEOUS TWICE A DAY SOLD: 08/16/2020 [facility] Metformin hydrochloride 500 MG Oral Tablet METFORMIN HCL 08/16/2020 12:00:00 AM EST tablet 60 TAKE ONE TABLET BY MOUTH TWI CE A DAY TAKE ONE TABLET BY MOUTH TWICE A DAY SOLD: 08/16/2020 [facility] glimepiride 2 MG Oral Tablet GLIMEPIRIDE 08/16/2020 12:00:00 AM EST ta blet 30 TAKE ONE TABLET BY MOUTH DAILY AT 7:30 TAKE ONE TABLET BY MOUTH DAILY AT 7:30 SOLD: 08/16/2020 [facility] 30 gauge 08/16/2020 12:00:00 AM EST misc 100 ONE MISCELLANEOUS TWICE A DAY ONE MISCELLANEOUS TWICE A DAY SOLD: 08/16/2020 [facility] ALCOHOL ANTISEPTIC PADS 08/16/2020 12:00:00 AM EST pads, med icated 100 USE ONE PAD TOPICALLY TWICE A DAY USE ONE PAD TOPICALLY TWICE A DAY SOLD: 08/16/2020 [facility] 500 mg 08/16/2020 12:00:00 AM EST tablet 5 TAKE ONE TABLET BY MOUTH EVERY DAY TAKE ONE TABLET BY MOUTH EVERY DAY SOLD: 08/16/2020 [facility] 12 HR Guaifenesin 600 MG Extended Release Oral Tablet GUAIFE NESIN 08/16/2020 12:00:00 AM EST tablet extended release 12hr 30 BINDU E ONE TABLET BY MOUTH TWICE A DAY TAKE ONE TABLET BY MOUTH TWICE A DAY SOLD: 08/16/2020 [facility] 4 mg 08/16/2020 12:00:00 AM EST tablets,dose pack 21 TAKE 6 TABLETS ON DAY ONE, TAKE 5 TABLETS DAY 2, TAKE 4 TABLETS DAY 3, TAKE 3 TABLETS DAY 4, TAKE 2 TABLETS DAY 5, AND 1 TABLET DAY 6 DIRECTED TAKE 6 TABLETS ON DAY ONE, TAKE 5 TABLETS DAY 2, TAKE 4 TABLETS DAY 3, TAKE 3 TABLETS DAY 4, TAKE 2 TABLETS DAY 5, AND 1 TABLET DAY 6 DIRECTED SOLD: 08/16/2020 [facility] atorvastatin 10 MG Oral Tablet ATORVASTATIN CALCIUM 08/12/2020 1 2:00:00 AM EST tablet 30 TAKE ONE TABLET BY MOUTH EVERY D AY TAKE ONE TABLET BY MOUTH EVERY DAY SOLD: 08/14/2020 [facility] 0.5 % 07/18/2020 12:00:00 AM EST cream 45 APPLY TO AFFECTED AREA(S) TWO TIMES A DAY DIRECTED DO NOT OVERUSE RISK OF ATROPHY APPLY TO AFFECTED AREA(S) TWO TIMES A DAY DIRECTED DO NOT OVERUSE RISK OF ATROPHY SOLD: 07/23/2020 [facility] Triamcinolone Acetonide 5 MG/ML Topical Cream Triamcinolone Acetonide 07/17/2020 12:00:00 AM EST active [facility] Ciprofloxacin 500 MG Oral Tablet Ciprofloxacin HCL 07/09/2020 12:00 :00 AM EST ORAL active [facility] ([facility], ) 500 mg 07/09/2020 12:00:00 AM EST tablet 20 TAKE ONE TABLET BY MOUTH TWICE A DAY TAKE ONE TABLET BY MOUTH TWICE A DAY SOLD: 07/09/2020 [facility] Albuterol 0.833 MG/ML / Ipratropium [place] 0.167 MG/M L Inhalant Solution Ipratropium [place]/Albuterol Sulfate 07/08/2020 12:00:00 AM EST active [facility] ([facility], ) 10 mg 07/08/2020 12:00:00 AM EST tablet 20 TAKE 2 TABLET BY MOUTH ONCE DAILY FOR 5 DAYS THEN TAKE ONE TABLET BY MOUTH EVERY DAY FOR 5 DAYS THEN 1/2 TABLET BY MOUTH ONCE DAILY FOR 5 DAYS THEN STOP TAKE 2 TABLET BY MOUTH ONCE DAILY FOR 5 DAYS THEN TAKE ONE TABLET BY MOUTH EVERY DAY FOR 5 DAYS THEN 1/2 TABLET BY MOUTH ONCE DAILY FOR 5 DAYS THEN STOP SOLD: 07/09/2020 [facility] Prednisone 10 MG Oral Tablet Prednisone 07/08/2020 12:00:00 AM EST ORAL active [facility] ([facility], ) atorvastatin 10 MG Oral Tablet ATORVASTATIN CALCIUM 07/05/2020 1 2:00:00 AM EST tablet 30 TAKE ONE TABLET BY MOUTH EVERY D AY TAKE ONE TABLET BY MOUTH EVERY DAY SOLD: 07/06/2020 [facility] 100,000 unit/mL 06/27/2020 12:00:00 AM EST suspension 200 TAKE 4ML BY MOUTH SWISH AND SWALLOW FOUR TIMES A DAY FOR 10 DAYS TAKE 4ML BY MOUTH SWISH AND SWALLOW FOUR TIMES A DAY FOR 10 DAYS SOLD: 06/29/2020 [facility] Nystatin [id number] UNT/ML Oral Suspension Nystatin 06/27/2020 12:00:00 AM EST ORAL active [facility] ([facility], ) Spiriva Respimat Spiriva Respimat 06/25/2020 12:00:00 AM EST RESPIRATORY active [facility] ([facility], ) 20 mg 06/12/2020 12:00:00 AM EST tablet 20 TAKE 3 TABLETS BY MOUTH DAILY FOR 3 DAYS THEN 2 DAILY FOR 3 DAYS THEN 1 DAILY FOR 3 DAYS THEN 1/2 TABLET DAILY FOR 4 DAYS TAKE 3 TABLETS BY MOUTH DAILY FOR 3 DAYS THEN 2 DAILY FOR 3 DAYS THEN 1 DAILY FOR 3 DAYS THEN 1/2 TABLET DAILY FOR 4 DAYS SOLD: 06/12/2020 [facility] 250 mg 06/12/2020 12:00:00 AM EST tablet 6 TAKE TWO TABLETS BY MOUTH AT ONCE ON THE FIRST DAY THEN TAKE ONE DAILY THEREAFTER TAKE TWO TABLETS BY MOUTH AT ONCE ON THE FIRST DAY THEN TAKE ONE DAILY THEREAFTER SOLD: 06/12/2020 [facility] Prednisone 20 MG Oral Tablet Prednisone 06/12/2020 12:00:00 AM EST active [facility] ([facility] [facility] Azithromycin 250 MG Oral Tablet Azithromycin 06/12/2020 12:00:00 AM EST active MEDENT ([facility]) 160-4.5 mcg/actuation 06/03/2020 12:00:00 AM EST HFA aerosol inhaler 10 INHALE TWO PUFFS BY MOUTH TWICE A DAY INHALE TWO PUFFS BY MOUTH TWICE A DAY SOLD: 08/12/2020 [facility] 160-4.5 mcg/actuation 06/03/2020 12:00:00 AM EST HFA aerosol inhaler 10 INHALE TWO PUFFS BY MOUTH TWICE A DAY INHALE TWO PUFFS BY MOUTH TWICE A DAY SOLD: 06/04/2020 [facility] 160-4.5 mcg/actuation 06/03/2020 12:00:00 AM EST HFA aerosol inhaler 10 INHALE TWO PUFFS BY MOUTH TWICE A DAY INHALE TWO PUFFS BY MOUTH TWICE A DAY SOLD: 07/09/2020 [facility] atorvastatin 10 MG Oral Tablet ATORVASTATIN CALCIUM 06/03/2020 1 2:00:00 AM EST tablet 30 TAKE ONE TABLET BY MOUTH EVERY D AY TAKE ONE TABLET BY MOUTH EVERY DAY SOLD: 06/04/2020 [facility] 90 mcg/actuation 06/03/2020 12:00:00 AM EST HFA aerosol inha ler 18 INHALE TWO PUFFS BY MOUTH FOUR TIMES A DAY NEEDED INHALE TWO PUFFS BY MOUTH FOUR TIMES A DAY NEEDED SOLD: 06/04/2020 [facility] 40 mg 05/15/2020 12:00:00 AM EDT capsule,delayed release (DR/EC) 60 TAKE ONE CAPSULE BY MOUTH TWICE A DAY (DYSPHAGIA,REFLUX ) TAKE ONE CAPSULE BY MOUTH TWICE A DAY (DYSPHAGIA,REFLUX ) SOLD: 06/19/2020 [facility] 40 mg 05/15/2020 12:00:00 AM EDT capsule,delayed release (DR/EC) 60 TAKE ONE CAPSULE BY MOUTH TWICE A DAY (DYSPHAGIA,REFLUX ) TAKE ONE CAPSULE BY MOUTH TWICE A DAY (DYSPHAGIA,REFLUX ) SOLD: 05/16/2020 [facility] Omeprazole 40 MG Delayed Release Oral Capsule Omeprazole 05/15/2020 12:00:00 AM EDT ORAL active [facility] ([facility]) 30 mg 03/27/2020 12:00:00 AM EDT capsule,delayed release (DR/EC) 180 TAKE TWO CAPSULES BY MOUTH EVERY DAY TAKE TWO CAPSULES BY MOUTH EVERY DAY SOLD: 03/30/2020 [facility] BLOOD-GLUCOSE METER 03/27/2020 12:00:00 AM EDT misc 1 TEST TWICE DAILY AND DIRECTED TEST TWICE DAILY AND DIRECTED SOLD: 03/30/2020 [facility] 20 mg 03/27/2020 12:00:00 AM EDT tablet 180 TAKE ONE TABLET BY MOUTH TWICE A DAY TAKE ONE TABLET BY MOUTH TWICE A DAY SOLD: 03/30/2020 [facility] NEBULIZER AND COMPRESSOR 03/27/2020 12:00:00 AM EDT device 1 USE DIRECTED USE DIRECTED SOLD: 03/30/2020 [facility] LANCETS 03/27/2020 12:00:00 AM EDT misc 200 TEST TWO TIMES A DAY TEST TWO TIMES A DAY SOLD: 03/30/2020 [facility] atorvastatin 10 MG Oral Tablet ATORVASTATIN CALCIUM 03/27/2020 1 2:00:00 AM EDT tablet 30 TAKE ONE TABLET BY MOUTH EVERY D AY TAKE ONE TABLET BY MOUTH EVERY DAY SOLD: 03/30/2020 [facility] 20 mg 03/27/2020 12:00:00 AM EDT tablet 180 TAKE ONE TABLET BY MOUTH TWICE A DAY TAKE ONE TABLET BY MOUTH TWICE A DAY SOLD: 07/06/2020 [facility] . UNIT 03/27/2020 12:00:00 AM EDT Misc 1 USE A S DIRECTED FOUR TIMES A DAY USE DIRECTED FOUR TIMES A DAY SOLD: 03/30/2020 [facility] BLOOD SUGAR DIAGNOSTIC 03/27/2020 12:00:00 AM EDT strip 200 TEST TWICE DAILY TO [facility] BLOOD SUGAR TEST TWICE DAILY TO [facility] BLOOD SUGAR SOLD: 03/30/2020 [facility] 20 mg 03/27/2020 12:00:00 AM EDT tablet 25 TAKE 2-5 TABLETS BY MOUTH 1 HOUR BEFORE INTERCOURSE TAKE 2-5 TABLETS BY MOUTH 1 HOUR BEFORE INTERCOURSE SO LD: 03/30/2020 [facility] 30 mg 03/27/2020 12:00:00 AM EDT capsule,delayed release (DR/EC) 180 TAKE TWO CAPSULES BY MOUTH EVERY DAY TAKE TWO CAPSULES BY MOUTH EVERY DAY SOLD: 07/06/2020 [facility] 0.4 mg 02/07/2020 12:00:00 AM EDT capsule 180 TAKE TWO CAPSULES BY MOUTH EVERY DAY 1/2 HOUR AFTER THE SAME MEAL TAKE TWO CAPSULES BY MOUTH EVERY DAY 1/2 HOUR AFTER THE SAME MEAL SOLD: 02/14/2020 [facility] 0.4 mg 02/07/2020 12:00:00 AM EDT capsule 180 TAKE TWO CAPSULES BY MOUTH EVERY DAY 1/2 HOUR AFTER THE SAME MEAL TAKE TWO CAPSULES BY MOUTH EVERY DAY 1/2 HOUR AFTER THE SAME MEAL SOLD: 06/19/2020 [facility] atorvastatin 10 MG Oral Tablet Atorvastatin Calcium 11/28/2019 1 2:00:00 AM EDT ORAL active [facility] ( [facility]) Acetaminophen 325 MG / Hydrocodone Bitartrate 5 MG Oral Tabl et [Atoka] Atoka 11/24/2019 12:00:00 AM EDT completed [facility] ([facility], ) Dexamethasone 1 MG/ML / Tobramycin 3 MG/ML Ophthalmic Suspension [Tobradex] Tobradex 11/24/2019 12:00:00 AM EDT AURICULAR completed [facility] ([facility], ) Levofloxacin 750 MG Oral Tablet [Levaquin] Levaquin 11/16 12:00:00 AM EDT ORAL completed [facility] ([facility], ) Acetaminophen 325 MG / Oxycodone Hydrochloride 5 MG Or al Tablet Oxycodone-Acetaminophen 11/17/2019 12:00:00 AM EDT active [facility] ([facility]) 750 mg 11/17/2019 12:00:00 AM EDT tablet 5 TAKE ONE TABLET BY MOUTH EVERY DAY TAKE ONE TABLET BY MOUTH EVERY DAY SOLD: 11/17/2019 [facility] tramadol hydrochloride 50 MG Oral Tablet Tramadol HCL 11/15/2019 12:00:00 AM EDT ORAL active [facility] ([facility]) Azithromycin 250 MG Oral Tablet Azithromycin 11/15/2019 12:00:00 AM EDT completed [facility] ([facility]) Ciprofloxacin 3 MG/ML / Dexamethasone 1 MG/ML Otic Joanne pension [Ciprodex] Ciprodex 11/15/2019 12:00:00 AM EDT AURICULAR completed [facility] ([facility]) 20 mg 07/29/2019 12:00:00 AM EST tablet 25 TAKE 2-5 TABLETS BY MOUTH ONE HOUR BEFORE INTERCOURSE TAKE 2-5 TABLETS BY MOUTH ONE HOUR BEFORE INTERCOURSE SOLD: 08/01/2019 [facility] Zithromax Z-Shashi Zithromax Z-Shashi 07/28/2019 12:00:00 AM EST ORAL active [facility] ([facility] 12 HR Carbamazepine 200 MG Extended Release Oral Capsule Car bamazepine ER 07/25/2019 12:00:00 AM EST ORAL active [facility] ([facility], ) duloxetine 30 MG Delayed Release Oral Capsule Duloxetine HCL 07/13/2019 12:00:00 AM EST ORAL active [facility] ([facility]) duloxetine 30 MG Delayed Release Oral Capsule Duloxetine HCL 05/03/2019 12:00:00 AM EDT ORAL completed [facility] ([facility]) 12 HR Carbamazepine 100 MG Extended Release Oral Capsule Car bamazepine ER 05/02/2019 12:00:00 AM EDT ORAL completed [facility] ([facility], ) Insurance Providers Payer name Policy type / Coverage type Policy ID Covered libertarian ID Covered libertarian's relationship to cobb Policy Cobb Plan Information AETNA MEDICARE [id number] SP MEBTN K6Y AETNA MEDICARE [id number] SP MEBTN K6Y AETNA MEDICARE O [id number] S MEBTN K6Y MEDICARE [id number] SP [id number] AETNA MEDICARE [id number] SP MEBTN K6Y WELLCARE [id number] SP [id number] WELLCARE O [id number] S [id number] WELLCARE [id number] SP [id number] WELLCARE [id number] SP [id number] [place] [employer] [place] Commercial [id number] Self [id number] Wellcare Commercial [id number] Self [id number] MVP Medicaid Commercial [id number] Self [id number] SELF PAY ONLY SP MVP MCDHMO [id number] SP [id number] [employer] [place] Commercial [id number] Self [id number] MVP Health Maintenance Organization (HMO) [id number] Self [id number] MVP Medicaid Commercial [id number] Self [id number] MVP Healthcare Commercial [id number] Self [id number] MVP HEALTH CARE O [id number] S [id number] MVP MCDHMO [id number] SP [id number] MVP MCDHMO [id number] SP [id number] MVP MCDHMO [id number] SP [id number] MEDICAID [id number] SP [id number] MEDICAID [id number] SP [id number] MVP Healthcare Commercial MVPM Self MVPM MVP MCDHMO [id number] SP [id number] [facility] PHY [id number] SP [id number] [facility] PHY [id number] SP [id number] [place] 302/307 [id number] SP [id number] MVP HEALTH CARE P [id number] S [id number] MVP HEALTH CARE P [id number] S [id number] P UNAVAILABLE UNAVAILA BLE EXCELLUS BCBS P [id number] S VYS [id number] [place] PPO 302/307 [id number] SP [id number] [facility] PHY [id number] SP [id number] STATE INSURANCE FUND [id number] SP [id number] BCBS [place] 304/804 [id number] SP [id number] BCBS [place] [facility] 303/803 [id number] SP [id number] BCBS [place] [facility] 303/803 [id number] SP [id number] BCBS [place] [id number] SP [id number] [facility] [id number] SP [id number] [place] [place] [id number] [place] [id number] Problems, Conditions, and Diagnoses Code Display Name Description Problem Type Effective Dates Data Source(s) 2595005 Ex-smoker Ex-smoker Problem 04/10/2020 12:00:00 AM ED T MED[facility] (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, ) Dilate Esophagus Unguided Sound Or Bougie 06/27/2020 1 2:00:00 AM EST [facility] ([facility], ) Spirometry 06/25/2020 12:00:00 AM EST M EDENT ([facility]) Spirometry 04/10/2020 12:00:00 AM EDT M EDENT ([facility], ) Binocular Microscopy 11/27/2019 12:00:00 AM EDT MED[facility] ([facility], ) Binocular Microscopy 11/24/2019 12:00:00 AM EDT MED[facility] ([facility], ) Binocular Microscopy 11/17/2019 12:00:00 AM EDT [facility] ([facility]) ECHO TTHRC R-T 2D W/WOM-MODE COMPL SPEC&COLR DOP 07/06 12:00:00 AM EST [facility] ([facility]) Results ID Date Data Source [id number] 08/13/2020 06:30:00 AM EST MED[facility] ([facility]) Name Value Range Interpretation Code Description Data Hannah rce(s) Supporting Document(s) ABG pH (Arterial) 7.394 units 7.350-7.450 MED[facility] ( [facility]) ABG Total Co2 27.8 meq/L 23.0-31.0 [facility] ([facility]) ABG Partial Pressure O2 175.6 mmHg 75.0-100.0 MEDE NT ([facility]) ABG Partial Pressure Co2 44.2 mmHg 35.0-45.0 MEDEN T ([facility]) ABG Hco3 26.4 meq/L 22.0-26.0 [facility] ABG Base Excess 1.1 [facility] ([facility]) ABG Standard Hco3 25.5 meq/L 22.0-26.0 [facility] ([facility]) ABG O2 Saturation 99.5 % 95.0-99.0 [facility] ([facility]) ID Date Data Source [id number] 08/13/2020 05:39:00 AM EST [facility] ([facility]) Name Value Range Interpretation Code Description Data Hannah rce(s) Supporting Document(s) Respiratory Panel Laboratory test result [facility] ([facility]) This respiratory PCR panel detects Influ margi A H1, H3 and 2009 H1 viruses, Influenza B virus, Resp iratory Syncytial Virus, Human metapneumovirus, Parainfluenza virus 1, 2, 3 and 4, Adenovirus, Rhinovirus/Enterovirus, Coronavirus HKU1, NL63, OC43, 229E and SARS-CoV-2 (COVID 19), Bordetella pertussis, Bordetella parapertussis, Mycoplasma pneumoniae and Chlamydia pneumoniae. NEGATIVE by MULTIPLEXED NUCLEIC ACID PCR SARS-CoV-2 (COVID 19) NEGATIVE - SARS-CoV-2 (COVID19) ID Date Data Source [id number] 08/13/2020 05:39:00 AM EST [facility] ([facility]) Name Value Range Interpretation Code Description Data Hannah rce(s) Supporting Document(s) Glucose, Fasting 237 mg/dL 70-100 [facility] ([facility]) Creatinine For GFR 1.00 mg/dL 0.70-1.30 [facility] ([facility]) Blood Urea Nitrogen 14 mg/dL 7-18 [facility] ([facility]) Sodium Level 137 meq/L 136-145 [facility] ([facility]) Glomerular Filtration Rate Laboratory test result [facility] <content>Units are mL/min/1.73 m2</content>
<content></content>
<content>Chronic Kidney Disease Staging per NKF:</content>
<content></content>
<content>Stage I & II GFR >=60 Normal to Mildly Decreased</content>
<content>Stage III GFR 30- 59 Moderately Decreased</content>
<content>Stage IV GFR 15-29 Severely Decreased</content>
<content>Stage V GFR <15 Very Little GFR Left</content>
<content>ESRD GFR <15 on SENIOR ACTUARIAL ANALYST</content>
<content></content> Carbon Dioxide Level 31 meq/L 21-32 [facility] ([facility]) Potassium Serum 4.5 meq/L 3.5-5.1 [facility] ([facility]) Chloride Level 101 meq/L 98-107 [facility] ([facility]) Anion Gap 5 meq/L 8-16 [facility] ([facility]) Calcium Level 9.0 mg/dL 8.8-10.2 MED[facility] ([facility]) ID Date Data Source [id number] 08/13/2020 05:39:00 AM EST [facility] ([facility]) Name Value Range Interpretation Code Description Data Hannah rce(s) Supporting Document(s) Ast/Sgot 16 U/L 7-37 [facility] ([facility]) Alkaline Phosphatase 118 U/L 45-117 [facility] ([facility]) Alt/SGPT 27 U/L 12-78 [facility] ([facility]) Bilirubin,Total 0.2 mg/dL 0.2-1.0 MED[facility] ([facility]) Total Protein 6.9 GM/DL 6.4-8.2 MED[facility] ([facility]) Bilirubin,Direct 0.1 mg/dL 0.0-0.2 [facility] ([facility]) Albumin 2.9 GM/DL 3.2-5.2 [facility] ([facility]) Albumin/Globulin Ratio 0.7 [facility] ([facility]) ID Date Data Source [id number] 08/13/2020 05:39:00 AM EST MED[facility] ([facility]) Name Value Range Interpretation Code Description Data Ahnnah rce(s) Supporting Document(s) White Blood Count 15.5 10 4.0-10.0 MED[facility] ([facility]) Hematocrit 44.0 % 42.0-52.0 [facility] ([facility]) Red Blood Count 5.00 10 4.30-6.10 [facility] ([facility]) Hemoglobin 13.8 g/dL 13.5-17.5 [facility] ([facility]) Mean Corpuscular Volume 88.0 fl 80.0-96.0 [facility] ([facility]) Mean Corpuscular Hemoglobin 27.6 pg 27.0-33.0 IN DENT ([facility]) Mean Corpuscular HGB Conc 31.4 g/dL 32.0-36.5 MEDE NT ([facility]) Neutrophils % 77.5 % 36.0-66.0 MED[facility] ([facility]) Platelet Count, Automated 464 10 150-450 MEDE NT ([facility]) Red Cell Distribution Width 13.6 % 11.5-14.5 ME DENT ([facility]) Sabine % 7.0 % 0.0-5.0 [facility] ([facility]) Eos % 3.6 % 0.0-3.0 [facility] Lymph % 10.4 % 24.0-44.0 [facility]) Immature Granulocyte % 1.0 % 0-3.0 [facility] ([facility]) Nucleated Red Blood Cell % 0.0 % 0-0 MED ENT ([facility]) Baso % 0.5 % 0.0-1.0 [facility] ([facility]) Lymph # 1.6 10 1.5-5.0 [facility]) Neutrophils # 12.0 10 1.5-8.5 [facility] ([facility]) Sabine # 1.1 10 0.0-0.8 [facility] ([facility]) Baso # 0.1 10 0.0-0.2 [facility] ([facility]) Eos # 0.6 10 0.0-0.5 [facility]) ID Date Data Source [id number] 08/13/2020 05:39:00 AM EST [facility] Name Value Range Interpretation Code Description Data Hannah rce(s) Supporting Document(s) SARS-CoV-2 (COVID 19) NEGATIVE - SARS-CoV-2 (COVID19) [facility] This lab was ordered by [facility] a nd reported by [facility]. ID Date Data Source [id number] 06/25/2020 08:35:00 AM EST MED[facility] ([facility], ) Name Value Range Interpretation Code Description Data Hannah rce(s) Supporting Document(s) PDFReport Laboratory test result MEDENT ([facility], ) FVC-Pre 2.03 L MED[facility] ([facility]) FVC-%Pred-Pre 44 L MED[facility] ([facility]) FVC-Pred 4.61 L [facility] ([facility]) Fev1-Pred 3.44 L [facility] ([facility]) FVC-LLN 3.67 L [facility] ([facility]) Fev1-Pre 0.86 L [facility] ([facility]) Fev6-Pred 4.37 L [facility] ([facility]) Fev1-%Pred-Pre 25 L MED[facility] ([facility], ) Fev1-LLN 2.65 L [facility] ([facility]) Fev6-LLN 3.46 L [facility] ([facility]) Fev6-%Pred-Pre 45 L MED[facility] ([facility]) Fev6-Pre 2.01 L [facility] ([facility]) Qcu8cus-Qvbp 75 % [facility] ([facility]) Zep9adw-%Pred-Pre 56 % MED[facility] ([facility]) Ten5fob-Dik 42 % [facility] ([facility]) Zmd3qmn-DGA 65 % [facility] ([facility]) Der2esk-Hlpq 95 % [facility] ([facility]) Qrk7unl-Kzo 99 % [facility] ([facility]) Vgd9zfs-%Pred-Pre 103 % [facility] ([facility]) FEFMax-Pred 8.82 L/E/sec MED[facility] ([facility]) FEFMax-Pre 3.05 L/E/sec [facility] ([facility]) FEFMax-LLN 6.50 L/E/sec [facility] ([facility]) Ctr1150-Pzmj 2.72 L/E/sec MED[facility] ([facility]) FEFMax-%Pred-Pre 34 L/E/sec [facility] ([facility]) Gba3610-Paz 0.36 L/E/sec [facility] ([facility]) Emm6816-LMH 1.12 L/E/sec MED[facility] ([facility]) Wnh7956-%Pred-Pre 13 L/E/sec MED[facility] ([facility]) ExpTime-Pre 6.44 sec [facility] ([facility]) Xvp8dbg7-Yetm 78 % [facility] ([facility]) Kxr6fkz1-%Pred-Pre 54 % [facility] ([facility]) Aln0qvh5-Cob 43 % [facility] ([facility]) Rdg0vyw0-GLW 69 % [facility] ([facility]) ID Date Data Source [id number] 06/22/2020 11:45:00 AM EST [facility] Name Value Range Interpretation Code Description Data Hannah rce(s) Supporting Document(s) SARS coronavirus 2 RNA [facility] This lab was ordered by [facility] and reported by [facility]. ID Date Data Source [id number] 06/12/2020 09:28:00 AM EST MED[facility] ([facility]) Name Value Range Interpretation Code Description Data Hannah rce(s) Supporting Document(s) Hemoglobin A1c/Hemoglobin.total in Blood 8.5 % [facility] ([facility]) Lab Result Notes: Pre-Diabetes 5.7 - 6.4 % Diabetes = or > 6.5% Glucose mean value [Mass/volume] in Blood Estimated fr om glycated hemoglobin 197 mg/dL 60-110 [facility] ([facility] ) ID Date Data Source [id number] 06/12/2020 09:28:00 AM EST [facility] ([facility]) Name Value Range Interpretation Code Description Data Hannah rce(s) Supporting Document(s) Glucose [Mass/volume] in Serum or Plasma 221 mg/dL 74-99 [facility] ([facility]) 100-125 mg/dL PRE-DIABETES/FASTING >126 mg/dL DIABETES/FASTING Urea nitrogen [Mass/volume] in Serum or Plasma 22 mg/dL 7-18 [facility] ([facility]) Creatinine 1.1 mg/dL 0.6-1.3 [facility] ([facility]) Potassium [Moles/volume] in Serum or Plasma 4.7 meq/L 3.5-5.1 [facility] ([facility]) Sodium [Moles/volume] in Serum or Plasma 140 meq/L 136-145 [facility] ([facility]) Chloride [Moles/volume] in Serum or Plasma 102 meq/L 98-107 [facility] ([facility]) Calcium [Mass/volume] in Serum or Plasma 9.2 mg/dL 8.5-10.1 [facility] ([facility]) Carbon dioxide, total [Moles/volume] in Serum or Plasma 30 meq/L 21 -32 [facility] ([facility]) Alkaline phosphatase isoenzyme [Units/volume] in Serum or Pl asma 120 mg/dL 46-116 [facility] ([facility]) Aspartate aminotransferase [Enzymatic activity/volume] in Serum or Plasma 13 U/L 15-37 [facility] ([facility] ) Total Bilirubin 0.5 mg/dL 0.2-1.0 [facility] ([facility]) Proteinase 3 Ab [Units/volume] in Serum 7.0 g/dL 6.4-8.2 [facility] ([facility]) Albumin [Mass/volume] in Serum or Plasma 3.6 g/dL 3.4-5.0 [facility] ([facility]) Alanine aminotransferase [Enzymatic activity/volume] in Seru m or Plasma 26 U/L 12-78 [facility] Glomerular filtration rate/1.73 sq M pre dicted among non-blacks [Volume Rate/Area] in Serum or Plasma by Creatinine-based formula (MDRD) Laboratory test result [facility] Glomerular filtration rate/1.73 sq M pre dicted among blacks [Volume Rate/Area] in Serum or Plasma by Creatinine-based formula (MDRD) Laboratory [facility] <content>CHRONIC KIDNEY DISEASE STAGING PER NKF</content>
<content></content>
<content>STAGE I & II GFR >= 60 NORMAL TO MILDLY DECREASED</content>
<content>STAGE III GFR 30-59 MODERATELY DECREASED</content>
<content>STAGE IV GFR 15-29 SEVERELY DECREASED</content>
<content>STAGE V GFR <15 VERY LITTLE GFR LEFT</content>
<content>ESRD GFR <15 ON SENIOR ACTUARIAL ANALYST</content>
<content></content> A/G Ratio 1.06 CALC 1.00-1.90 [facility] ([facility]) ID Date Data Source [id number] 06/12/2020 09:28:00 AM EST [facility] Name Value Range Interpretation Code Description Data Hannah rce(s) Supporting Document(s) Hemoglobin A1c/Hemoglobin.total in Blood Laboratory test result [facility] ID Date Data Source [id number] 04/30/2020 12:03:00 PM EDT [facility] Name Value Range Interpretation Code Description Data Hannah rce(s) Supporting Document(s) Thyrotropin [Units/volume] in Serum or Plasma by Detec tion limit <= 0.05 mIU/L 1.240 uIU/ML 0.358-3.740 [facility] ) Thyroperoxidase Ab [Units/volume] in Serum or Plasma 31.2 U/ML [facility] Triiodothyronine (T3) [Mass/volume] in Serum or Plasma 97.8 ng/dL 60.0-181.0 [facility] Thyroxine (T4) free [Mass/volume] in Serum or Plasma 1.09 ng/dL 0.76- 1.46 [facility] Thyroglobulin Ab [Units/volume] in Serum or Plasma Laboratory test re sult [facility] ID Date Data Source [id number] 04/30/2020 12:03:00 PM EDT [facility] Name Value Range Interpretation Code Description Data Hannah rce(s) Supporting Document(s) Blood Urea Nitrogen 20 mg/dL 7-18 [facility] ([facility]) Glucose, Fasting 188 mg/dL 70-100 [facility] ([facility]) Sodium Level 138 meq/L 136-145 [facility] Creatinine For GFR 1.02 mg/dL 0.70-1.30 [facility] Glomerular Filtration Rate Laboratory test result [facility] <content>Units are mL/min/1.73 m2</content>
<content></content>
<content>Chronic Kidney Disease Staging per NKF:</content>
<content></content>
<content>Stage I & II GFR >=60 Normal to Mildly Decreased</content>
<content>Stage III GFR 30- 59 Moderately Decreased</content>
<content>Stage IV GFR 15-29 Severely Decreased</content>
<content>Stage V GFR <15 Very Little GFR Left</content>
<content>ESRD GFR <15 on SENIOR ACTUARIAL ANALYST</content>
<content></content> Potassium Serum 4.7 meq/L 3.5-5.1 [facility] ([facility]) Carbon Dioxide Level 25 meq/L 21-32 [facility] ([facility]) Chloride Level 106 meq/L 98-107 [facility] Anion Gap 7 meq/L 8-16 [facility] ([facility]) Ast/Sgot 20 U/L 7-37 [facility] ([facility]) Calcium Level 9.5 mg/dL 8.8-10.2 [facility] ([facility] Alt/SGPT 29 U/L 12-78 [facility] ([facility]) Alkaline Phosphatase 117 U/L 45-117 [facility] ([facility] Bilirubin,Total 0.7 mg/dL 0.2-1.0 [facility] ([facility]) Total Protein 7.8 GM/DL 6.4-8.2 [facility] ([facility]) Albumin/Globulin Ratio 1.1 [facility] ([facility] Albumin 4.0 GM/DL 3.2-5.2 [facility] ([facility]) ID Date Data Source [id number] 04/30/2020 12:03:00 PM EDT [facility] ([facility]) Name Value Range Interpretation Code Description Data Hannah rce(s) Supporting Document(s) Red Blood Count 5.45 10 4.30-6.10 [facility] ([facility]) Hemoglobin 16.1 g/dL 13.5-17.5 [facility] ([facility]) White Blood Count 11.9 10 4.0-10.0 [facility] ([facility]) Hematocrit 48.8 % 42.0-52.0 [facility] Mean Corpuscular Volume 89.5 fl 80.0-96.0 [facility] ([facility]) Mean Corpuscular Hemoglobin 29.5 pg 27.0-33.0 ME DENT ([facility]) Platelet Count, Automated 360 10 150-450 MEDE NT ([facility]) Mean Corpuscular HGB Conc 33.0 g/dL 32.0-36.5 MEDE NT ([facility]) Red Cell Distribution Width 13.2 % 11.5-14.5 ME DENT ([facility]) Neutrophils % 75.8 % 36.0-66.0 [facility]) Lymph % 14.3 % 24.0-44.0 [facility]) Sabine % 6.8 % 0.0-5.0 [facility] ([facility]) Immature Granulocyte % 0.4 % 0-3.0 [facility] ([facility]) Baso % 0.8 % 0.0-1.0 [facility] ([facility]) Eos % 1.9 % 0.0-3.0 [facility] ([facility]) Lymph # 1.7 10 1.5-5.0 [facility] ([facility]) Neutrophils # 9.0 10 1.5-8.5 [facility] ([facility]) Nucleated Red Blood Cell % 0.0 % 0-0 MED ENT ([facility]) Baso # 0.1 10 0.0-0.2 [facility] ([facility]) Sabine # 0.8 10 0.0-0.8 [facility] ([facility]) Eos # 0.2 10 0.0-0.5 [facility] ([facility]) ID Date Data Source [id number] 04/10/2020 09:29:00 AM EDT [facility] ([facility], ) Name Value Range Interpretation Code Description Data Hannah rce(s) Supporting Document(s) PDFReport Laboratory test result [facility] ([facility], ) FVC-Pred 4.61 L [facility] ([facility], ) FVC-%Pred-Pre 56 L [facility] ([facility], ) FVC-Pre 2.59 L [facility] ([facility], ) FVC-LLN 3.67 L [facility] ([facility]) Fev1-%Pred-Pre 30 L [facility] ([facility], ) Fev1-Pred 3.44 L [facility] ([facility], ) Fev1-Pre 1.05 L [facility] ([facility], ) Fev1-LLN 2.65 L [facility] ([facility], ) Fev6-Pre 2.58 L [facility] ([facility]) Fev6-Pred 4.37 L [facility] ([facility]) Llz8ckw-Azrz 75 % [facility] ([facility], ) Fev6-LLN 3.46 L [facility] ([facility], ) Fev6-%Pred-Pre 59 L [facility] ([facility], ) Ajq7ntw-Nos 41 % [facility] ([facility]) Aqo1xyd-%Pred-Pre 54 % [facility] ([facility]) Pss1mas-Qevt 95 % [facility] ([facility]) Ull6yfy-EHW 65 % [facility] ([facility]) Wxr9lpa-%Pred-Pre 104 % [facility] ([facility]) Gns2avo-Bce 100 % [facility] ([facility]) FEFMax-Pre 4.38 L/E/sec [facility] ([facility], ) FEFMax-Pred 8.82 L/E/sec [facility] ([facility]) FEFMax-%Pred-Pre 49 L/E/sec [facility] ([facility]) [id number]-Nrzs 2.72 L/E/sec [facility] ([facility]) FEFMax-LLN 6.50 L/E/sec [facility] ([facility]) Dpt1495-Kmy 0.46 L/E/sec [facility] ([facility]) Iua7000-%Pred-Pre 16 L/E/sec [facility] ([facility]) Ibg3631-TDR 1.12 L/E/sec [facility] ([facility]) ExpTime-Pre 6.33 sec [facility] ([facility]) Xtp6nky1-Cfsq 78 % [facility] ([facility]) Vzm2jxy2-%Pred-Pre 52 % [facility] ([facility]) Xna9xcx3-Zrr 41 % [facility] ([facility]) Yqy1vjm1-RTC 69 % [facility] ([facility]) ID Date Data Source [id number] 04/04/2020 11:03:00 AM EDT [facility] ([facility]) Name Value Range Interpretation Code Description Data Hannah rce(s) Supporting Document(s) Laboratory test finding (navigational concept) Laboratory test result [facility] ([facility]) ID Date Data Source [id number] 02/07/2020 12:20:00 PM EDT [facility] ([facility]) Name Value Range Interpretation Code Description Data Hannah rce(s) Supporting Document(s) Microalbumin Urine 9.8 mg/L 1.3-20.0 [facility] ([facility]) Urine Creatinine 173.7 mg/dL 30.0-125.0 [facility] ([facility]) Microalb/Creat Ratio 5.6 ug/mg 0.0-30.0 [facility] ([facility]) ID Date Data Source [id number] 02/06/2020 10:33:00 AM EDT [facility] ([facility]) Name Value Range Interpretation Code Description Data Hannah rce(s) Supporting Document(s) Prostate specific Ag [Mass/volume] in Serum or Plasma 0.61 ng/mL [facility] ([facility]) This assay was performed on the Siemens Dimension EXL using the B- Galactosidase/CPRG methodology and should not be compared interchangeably with other methods. The PSA should not be used alone as a screening test for the presence or absence of malignant disease. ID Date Data Source [id number] 02/06/2020 10:33:00 AM EDT [facility] ([facility]) Name Value Range Interpretation Code Description Data Hannah rce(s) Supporting Document(s) Triglyceride [Mass/volume] in Serum or Plasma 87 mg/dL 30-150 [facility] ([facility]) Cholesterol [Mass/volume] in Serum or Plasma 170 mg/dL 131-200 [facility] ([facility]) Cholesterol in LDL [Mass/volume] in Serum or Plasma by calcu lation 98 CALC 50-159 [facility] ([facility]) Cholesterol in HDL [Mass/volume] in Serum or Plasma 55 mg/dL 35-60 [facility] ([facility]) ID Date Data Source [id number] 02/06/2020 10:33:00 AM EDT [facility] ([facility]) Name Value Range Interpretation Code Description Data Hannah rce(s) Supporting Document(s) Glucose [Mass/volume] in Serum or Plasma 180 mg/dL 74-99 [facility] ([facility]) 100-125 mg/dL PRE-DIABETES/FASTING >126 mg/dL DIABETES/FASTING Urea nitrogen [Mass/volume] in Serum or Plasma 19 mg/dL 7-18 [facility] ([facility]) Sodium [Moles/volume] in Serum or Plasma 142 meq/L 136-145 [facility] ([facility]) Creatinine 1.1 mg/dL 0.6-1.3 [facility] ([facility]) Potassium [Moles/volume] in Serum or Plasma 4.8 meq/L 3.5-5.1 [facility] ([facility]) Carbon dioxide, total [Moles/volume] in Serum or Plasma 28 meq/L 21 -32 [facility] ([facility]) Chloride [Moles/volume] in Serum or Plasma 104 meq/L 98-107 [facility] ([facility]) Aspartate aminotransferase [Enzymatic activity/volume] in Serum or Plasma 14 U/L 15-37 [facility] ([facility] ) Alkaline phosphatase isoenzyme [Units/volume] in Serum or Pl asma 86 mg/dL 46-116 [facility] ([facility]) Calcium [Mass/volume] in Serum or Plasma 9.2 mg/dL 8.5-10.1 [facility] ([facility]) Total Bilirubin 0.5 mg/dL 0.2-1.0 [facility]) Proteinase 3 Ab [Units/volume] in Serum 7.2 g/dL 6.4-8.2 [facility] ([facility]) Albumin [Mass/volume] in Serum or Plasma 3.7 g/dL 3.4-5.0 [facility] ([facility]) Alanine aminotransferase [Enzymatic activity/volume] in Seru m or Plasma 29 U/L 12-78 [facility]) A/G Ratio 1.06 CALC 1.00-1.90 [facility]) Glomerular filtration rate/1.73 sq M pre dicted among non-blacks [Volume Rate/Area] in Serum or Plasma by Creatinine-based formula (MDRD) Laboratory test result [facility] Glomerular filtration rate/1.73 sq M pre dicted among blacks [Volume Rate/Area] in Serum or Plasma by Creatinine-based formula (MDRD) Laboratory test result [facility]) <content>CHRONIC KIDNEY DISEASE STAGING PER NKF</content>
<content></content>
<content>STAGE I & II GFR >= 60 NORMAL TO MILDLY DECREASED</content>
<content>STAGE III GFR 30-59 MODERATELY DECREASED</content>
<content>STAGE IV GFR 15-29 SEVERELY DECREASED</content>
<content>STAGE V GFR <15 VERY LITTLE GFR LEFT</content>
<content>ESRD GFR <15 ON SENIOR ACTUARIAL ANALYST</content>
<content></content> ID Date Data Source [id number] 02/06/2020 10:33:00 AM EDT [facility]) Name Value Range Interpretation Code Description Data Hannah rce(s) Supporting Document(s) Glucose mean value [Mass/volume] in Blood Estimated fr om glycated hemoglobin 174 mg/dL 60-110 [facility] ([facility] ) Hemoglobin A1c/Hemoglobin.total in Blood 7.7 g/dL 4.8-5.6 [facility] ([facility]) Lab Result Notes: Pre-Diabetes 5.7 - 6.4 % Diabetes = or > 6.5% ID Date Data Source [id number] 02/06/2020 10:33:00 AM EDT [facility] ([facility]) Name Value Range Interpretation Code Description Data Hannah rce(s) Supporting Document(s) Leukocytes [#/volume] in Blood by Automated count 10.0 x10*3/UL 4.1-1 0.9 [facility] ([facility]) Hemoglobin [Mass/volume] in Blood 14.9 g/dL 12.0-18.0 [facility] ([facility]) Erythrocytes [#/volume] in Blood by Automated count 4.98 x10*6/UL 4.2 0-6.30 [facility] ([facility]) Hematocrit [Volume Fraction] of Blood by Automated count 44.6 % 3 7.0-51.0 [facility] ([facility]) MCV 89.5 fL 80.0-97.0 [facility] ([facility]) Erythrocyte distribution width [Ratio] by Automated count 13.5 % 11.6-13.7 [facility] ([facility]) MCH 30.0 pg 26.0-32.0 [facility] ([facility]) MCHC 33.5 g/dL 31.0-38.0 [facility] ([facility]) MPV 8.0 FL 7.8-11.0 [facility] ([facility]) Platelets [#/volume] in Blood by Automated count 363 x10*3/UL 140-440 [facility] ([facility]) Lymph % 19.3 % 10.0-58.5 [facility] ([facility]) Neut % 74.9 % 37.0-92.0 [facility] ([facility]) Lymph # 1.9 x10*3/UL 0.6-4.1 [facility] ([facility]) Mid % 5.8 % 1.7-9.3 [facility] ([facility]) Mid # 0.6 x10*3/UL 0.1-0.6 [facility] ([facility]) Neut # 7.5 x10*3/UL 2.0-7.8 [facility] ([facility]) ID Date Data Source [id number] 11/24/2019 01:09:00 PM EDT [facility] ([facility]) Name Value Range Interpretation Code Description Data Hannah rce(s) Supporting Document(s) Potassium [Moles/volume] in Serum or Plasma 4.6 meq/L 3.5-5.1 [facility] ([facility]) ID Date Data Source [id number] 11/24/2019 12:19:00 PM EDT [facility] ([facility]) Name Value Range Interpretation Code Description Data Hannah rce(s) Supporting Document(s) Laboratory test finding (navigational concept) 49.0 % 38.0-51.0 [facility] ([facility]) Laboratory test finding (navigational concept) 187 mg/dL 70-105 [facility] ([facility]) Laboratory test finding (navigational concept) 5.5 meq/L 3.5-5.1 [facility] ([facility]) Laboratory test finding (navigational concept) 138 meq/L 136-145 [facility] ([facility]) Laboratory test finding (navigational concept) 4.3 mg/dL 4.5-5.3 [facility] ([facility]) Laboratory test finding (navigational concept) 106 meq/L 98-109 [facility] ([facility]) Laboratory test finding (navigational concept) 25.0 MM/L 23.0-27.0 [facility] ([facility]) Laboratory test finding (navigational concept) 26 mg/dL 8-26 [facility] ([facility]) Laboratory test finding (navigational concept) 1.0 mg/dL 0.6-1.3 [facility] ([facility]) ID Date Data Source [id number] 11/24/2019 12:18:00 PM EDT [facility] ([facility]) Name Value Range Interpretation Code Description Data Hannah rce(s) Supporting Document(s) White Blood Count 11.2 10 4.0-10.0 [facility] ([place] [facility]) Red Blood Count 5.35 10 4.30-6.10 [facility] ([facility]) Hemoglobin 16.6 g/dL 13.5-17.5 [facility] ([facility]) Hematocrit 48.2 % 42.0-52.0 [facility] ([facility]) Mean Corpuscular Hemoglobin 31.0 pg 27.0-33.0 ME [facility] ([facility]) Mean Corpuscular Volume 90.1 fl 80.0-96.0 [facility] ([facility]) Mean Corpuscular HGB Conc 34.4 g/dL 32.0-36.5 MEDE NT ([facility]) Platelet Count, Automated 406 10 150-450 [facility] NT ([facility]) Red Cell Distribution Width 13.0 % 11.5-14.5 ME [facility] ([facility]) Neutrophils % 73.4 % 36.0-66.0 [facility] ([facility]) Sabine % 6.6 % 0.0-5.0 [facility] ([facility]) Lymph % 15.4 % 24.0-44.0 [facility]) Eos % 2.8 % 0.0-3.0 [facility] ([facility]) Immature Granulocyte % 1.0 % 0-3.0 [facility] ([facility]) Baso % 0.8 % 0.0-1.0 [facility] ([facility]) Nucleated Red Blood Cell % 0.0 % 0-0 MED ENT ([facility]) Lymph # 1.7 10 1.5-5.0 [facility]) Neutrophils # 8.2 10 1.5-8.5 [facility] ([facility]) Eos # 0.3 10 0.0-0.5 [facility] ([facility]) Sabine # 0.7 10 0.0-0.8 [facility] ([facility]) Baso # 0.1 10 0.0-0.2 [facility] ([facility]) ID Date Data Source [id number] 11/24/2019 11:43:00 AM EDT MED[facility] ([facility], ) Name Value Range Interpretation Code Description Data Hannah rce(s) Supporting Document(s) Bacteria identified in Ear by Aerobe culture Laboratory test res ult Normal (applies to non-numeric results) [facility] ([facility], ) FULL REPORT IN LAB NOTES (eCW and [facility] ). NORMAL ELENO PRESENT ID Date Data Source [id number] 08/02/2019 08:50:00 AM EST [facility] ([facility]) Name Value Range Interpretation Code Description Data Hannah rce(s) Supporting Document(s) Thyrotropin [Units/volume] in Serum or Plasma by Detec tion limit <= 0.05 mIU/L 1.66 uIU/mL 0.36-3.74 [facility] ) ID Date Data Source [id number] 08/02/2019 08:50:00 AM EST [facility] ([facility]) Name Value Range Interpretation Code Description Data Hannah rce(s) Supporting Document(s) Cholesterol [Mass/volume] in Serum or Plasma 213 mg/dL 131-200 [facility] ([facility]) Triglyceride [Mass/volume] in Serum or Plasma 301 mg/dL 30-150 [facility] ([facility]) Cholesterol in LDL [Mass/volume] in Serum or Plasma by calcu lation 112 CALC 50-159 [facility] ([facility]) Cholesterol in HDL [Mass/volume] in Serum or Plasma 41 mg/dL 35-60 [facility] ([facility]) ID Date Data Source [id number] 08/02/2019 08:50:00 AM EST [facility] ([facility]) Name Value Range Interpretation Code Description Data Hannah rce(s) Supporting Document(s) Glucose [Mass/volume] in Serum or Plasma 179 mg/dL 74-99 [facility] ([facility]) 100-125 mg/dL PRE-DIABETES/FASTING >126 mg/dL DIABETES/FASTING Urea nitrogen [Mass/volume] in Serum or Plasma 23 mg/dL 7-18 [facility] ([facility]) Creatinine 1.1 mg/dL 0.6-1.3 [facility] ([facility]) Potassium [Moles/volume] in Serum or Plasma 4.2 meq/L 3.5-5.1 [facility] ([facility]) Sodium [Moles/volume] in Serum or Plasma 139 meq/L 136-145 [facility] ([facility]) Chloride [Moles/volume] in Serum or Plasma 102 meq/L 98-107 [facility] ([facility]) Carbon dioxide, total [Moles/volume] in Serum or Plasma 29 meq/L 21 -32 [facility] ([facility]) Calcium [Mass/volume] in Serum or Plasma 8.5 mg/dL 8.5-10.1 [facility] ([facility]) Alkaline phosphatase isoenzyme [Units/volume] in Serum or Pl asma 92 mg/dL 46-116 [facility] ([facility]) Total Bilirubin 0.3 mg/dL 0.2-1.0 [facility] ([facility]) Aspartate aminotransferase [Enzymatic activity/volume] in Serum or Plasma 13 U/L 15-37 [facility] ([facility] ) Alanine aminotransferase [Enzymatic activity/volume] in Seru m or Plasma 27 U/L 12-78 [facility] ([facility]) A/G Ratio 1.16 CALC 1.00-1.90 [facility] ([facility]) Albumin [Mass/volume] in Serum or Plasma 3.6 g/dL 3.4-5.0 [facility] ([facility]) Proteinase 3 Ab [Units/volume] in Serum 6.7 g/dL 6.4-8.2 [facility] ([facility]) Glomerular filtration rate/1.73 sq M pre dicted among blacks [Volume Rate/Area] in Serum or Plasma by Creatinine-based formula (MDRD) Laboratory test result [facility] ([facility]) <content>CHRONIC KIDNEY DISEASE STAGING PER NKF</content>
<content></content>
<content>STAGE I & II GFR >= 60 NORMAL TO MILDLY DECREASED</content>
<content>STAGE III GFR 30-59 MODERATELY DECREASED</content>
<content>STAGE IV GFR 15-29 SEVERELY DECREASED</content>
<content>STAGE V GFR <15 VERY LITTLE GFR LEFT</content>
<content>ESRD GFR <15 ON SENIOR ACTUARIAL ANALYST</content>
<content></content> Glomerular filtration rate/1.73 sq M pre dicted among non-blacks [Volume Rate/Area] in Serum or Plasma by Creatinine-based formula (MDRD) Laboratory test result [facility] ) ID Date Data Source [id number] 08/02/2019 08:50:00 AM [facility]) Name Value Range Interpretation Code Description Data Hannah rce(s) Supporting Document(s) Hemoglobin A1c/Hemoglobin.total in Blood 8.2 g/dL 4.8-5.6 [facility] ([facility]) Lab Result Notes: Pre-Diabetes 5.7 - 6.4 % Diabetes = or > 6.5% Glucose mean value [Mass/volume] in Blood Estimated fr om glycated hemoglobin 189 mg/dL 60-110 [facility] ([facility] ) ID Date Data Source [id number] 08/02/2019 08:50:00 AM EST [facility] ([facility]) Name Value Range Interpretation Code Description Data Hannah rce(s) Supporting Document(s) Leukocytes [#/volume] in Blood by Automated count 9.2 x10*3/UL 4.1-10 .9 [facility] Erythrocytes [#/volume] in Blood by Automated count 5.05 x10*6/UL 4.2 0-6.30 [facility] Hematocrit [Volume Fraction] of Blood by Automated count 45.2 % 3 7.0-51.0 [facility] Hemoglobin [Mass/volume] in Blood 15.3 g/dL 12.0-18.0 [facility] MCV 89.6 fL 80.0-97.0 [facility] ([facility]) Erythrocyte distribution width [Ratio] by Automated count 13.0 % 11.6-13.7 [facility] MCH 30.4 pg 26.0-32.0 [facility] ([facility]) MCHC 33.9 g/dL 31.0-38.0 [facility]) Lymph % 21.3 % 10.0-58.5 [facility] MPV 8.2 FL 7.8-11.0 [facility] Platelets [#/volume] in Blood by Automated count 296 x10*3/UL 140-440 [facility] ([facility]) Mid % 5.2 % 1.7-9.3 [facility] Neut % 73.5 % 37.0-92.0 [facility] Lymph # 1.9 x10*3/UL 0.6-4.1 [facility] ([facility]) Mid # 0.6 x10*3/UL 0.1-0.6 [facility] ([facility]) Neut # 6.7 x10*3/UL 2.0-7.8 [facility] ([facility]) Procedure Social History Code Duration Value Status Description Data Source(s ) Smoking 06/25/2020 12:00:00 AM EST Patient is a former smoker completed Patient is a former smoker [facility] ([facility], ) Vital Signs ID Date Data Source UNK Name Value Range Interpretation Code Description Data Source(s) Body mass index (BMI) [Ratio] 37.1 kg/m2 37.1 k g/m2 [facility] ([facility]) Oxygen saturation in Arterial blood by Pulse oximetry --post exerci se 87 % 87 % [facility] ([facility]) Oxygen saturation in Arterial blood by Pulse oximetry 91 % 91 % [facility] ([facility]) Body weight 251.00 [lb_av] 251.00 [lb_av] [facility] T ([facility]) Body height 69.0 [in_i] 69.0 [in_i] [facility] ([facility]) 5'9" Heart rate 88 /min 88 /min [facility] ([facility]) Diastolic blood pressure 78 mm[Hg] 78 mm[Hg] [facility] ([facility]) Systolic blood pressure 130 mm[Hg] 130 mm[Hg] M FR[facility] ([facility]) Body surface area Derived from formula 2.31 m2 2.31 m2 [facility] ([facility]) Body weight 115.668 kg 115.668 kg [facility] ([facility]) [place] body weight 166 [lb_av] 166 [lb_av] MEDEN T ([facility]) Body mass index (BMI) [Ratio] 36.6 kg/m2 36.6 k g/m2 [facility] ([facility]) Body weight 255.00 [lb_av] 255.00 [lb_av] MEDEN T ([facility]) Body height 70 [in_i] 70 [in_i] [facility] ([facility]) 5'10" Oxygen saturation in Arterial blood by Pulse oximetry 95 % 95 % [facility] ([facility]) Heart rate 93 /min 93 /min [facility] ([facility]) Diastolic blood pressure 90 mm[Hg] 90 mm[Hg] [facility] ([facility]) Systolic blood pressure 142 mm[Hg] 142 mm[Hg] [facility] ([facility]) Body mass index (BMI) [Ratio] 37.9 kg/m2 37.9 k g/m2 [facility] Oxygen saturation in Arterial blood by Pulse oximetry 90 % 90 % [facility] ([facility]) Body weight 257.00 [lb_av] 257.00 [lb_av] [facility] T ([facility]) Body height 69.0 [in_i] 69.0 [in_i] [facility] ([facility]) 5'9" Heart rate 88 /min 88 /min [facility] ([facility]) Diastolic blood pressure 84 mm[Hg] 84 mm[Hg] [facility]) Systolic blood pressure 136 mm[Hg] 136 mm[Hg] [facility] ([facility]) Body surface area Derived from formula 2.29 m2 2.29 m2 [facility] ([facility]) Body weight 113.400 kg 113.400 kg [facility] ([facility]) [place] body weight 166 [lb_av] 166 [lb_av] MED[facility] T ([facility]) Body mass index (BMI) [Ratio] 35.9 kg/m2 35.9 k g/m2 [facility] ([facility]) Body weight 250.00 [lb_av] 250.00 [lb_av] [facility] T ([facility]) Body height 70 [in_i] 70 [in_i] [facility] ([facility]) 5'10" Diastolic blood pressure 60 mm[Hg] 60 mm[Hg] [facility] ([facility]) Systolic blood pressure 139 mm[Hg] 139 mm[Hg] [facility] ([facility]) Body weight 112.493 kg 112.493 kg [facility] ([facility]) [place] body weight 166 [lb_av] 166 [lb_av] [facility] T ([facility]) Body mass index (BMI) [Ratio] 35.6 kg/m2 35.6 k g/m2 [facility] ([facility]) Body weight 248.00 [lb_av] 248.00 [lb_av] [facility] T ([facility]) Body height 70 [in_i] 70 [in_i] [facility] ([facility]) 5'10" Body temperature 96.8 [degF] 96.8 [degF] [facility] ([facility]) Oxygen saturation in Arterial blood by Pulse oximetry 94 % 94 % [facility] ([facility]) Heart rate 79 /min 79 /min [facility] ([facility]) Diastolic blood pressure 88 mm[Hg] 88 mm[Hg] [facility] ([facility]) Systolic blood pressure 128 mm[Hg] 128 mm[Hg] [facility] ([facility]) Systolic blood pressure 92 mm[Hg] 92 mm[Hg] [facility] ([facility]) Body mass index (BMI) [Ratio] 38.1 kg/m2 38.1 k g/m2 [facility] ([facility]) Oxygen saturation in Arterial blood by Pulse oximetry 92 % 92 % [facility] ([facility]) Body weight 258.00 [lb_av] 258.00 [lb_av] [facility] ([facility]) Body height 69.0 [in_i] 69.0 [in_i] [facility] ([facility]) 5'9" Heart rate 80 /min 80 /min [facility] ([facility]) Diastolic blood pressure 78 mm[Hg] 78 mm[Hg] [facility] ([facility]) Body weight 114.761 kg 114.761 kg [facility] ([facility]) Body mass index (BMI) [Ratio] 36.3 kg/m2 36.3 k g/m2 [facility] ([facility]) Body weight 253.00 [lb_av] 253.00 [lb_av] MEDEN T ([facility]) Body height 70 [in_i] 70 [in_i] [facility] ([facility]) 5'10" Body weight 251.00 [lb_av] 251.00 [lb_av] [facility] T ([facility]) Body height 69.0 [in_i] 69.0 [in_i] [facility] ([facility]) 5'9" Heart rate 76 /min 76 /min [facility] ([facility]) Diastolic blood pressure 80 mm[Hg] 80 mm[Hg] [facility] ([facility]) Systolic blood pressure 136 mm[Hg] 136 mm[Hg] M [facility]ENT ([facility]) Body mass index (BMI) [Ratio] 37.1 kg/m2 37.1 k g/m2 [facility] ([facility]) Body weight 114.761 kg 114.761 kg [facility] ([facility]) Body mass index (BMI) [Ratio] 36.3 kg/m2 36.3 k g/m2 [facility] [employer] ([facility]) Body weight 253.00 [lb_av] 253.00 [lb_av] MED[facility] T ([facility]) Body height 70 [in_i] 70 [in_i] [facility] ([facility]) 5'10" Body weight 114.761 kg 114.761 kg [facility] ([facility]) Body mass index (BMI) [Ratio] 36.3 kg/m2 36.3 k g/m2 [facility] ([facility]) Body weight 253.00 [lb_av] 253.00 [lb_av] MED[facility] T ([facility]) Body height 70 [in_i] 70 [in_i] [facility] ([facility]) 5'10" Body weight 114.761 kg 114.761 kg [facility] ([facility]) Body mass index (BMI) [Ratio] 36.3 kg/m2 36.3 k g/m2 [facility] [employer] [facility] ([facility]) Body weight 253.00 [lb_av] 253.00 [lb_av] MEDEN T ([facility]) Body height 70 [in_i] 70 [in_i] [facility] ([facility]) 5'10" Body weight 114.761 kg 114.761 kg [facility] ([facility]) Body mass index (BMI) [Ratio] 36.3 kg/m2 36.3 k g/m2 [facility] ([facility]) Body weight 253.00 [lb_av] 253.00 [lb_av] MEDEN T ([facility]) Body height 70 [in_i] 70 [in_i] [facility] ([facility]) 5'10" Body mass index (BMI) [Ratio] 38.2 kg/m2 38.2 k g/m2 [facility] ([facility]) Oxygen saturation in Arterial blood by Pulse oximetry 95 % 95 % [facility] RM Air Body weight 259.00 [lb_av] 259.00 [lb_av] [facility] T ([facility]) Body height 69.0 [in_i] 69.0 [in_i] [facility] ([facility]) 5'9" Body temperature 97.6 [degF] 97.6 [degF] [facility] ([facility]) Oral Heart rate 100 /min 100 /min [facility] ([facility]) Diastolic blood pressure 82 mm[Hg] 82 mm[Hg] [facility] ([facility]) RT Arm Systolic blood pressure 138 mm[Hg] 138 mm[Hg] M EDENT ([facility]) RT Arm Body mass index (BMI) [Ratio] 38.1 kg/m2 38.1 k g/m2 [facility] ([facility]) Body weight 258.00 [lb_av] 258.00 [lb_av] MEDEN T ([facility]) Body height 69 [in_i] 69 [in_i] [facility] ([facility]) 5'9" Respiratory rate 12 /min 12 /min [facility] ( [facility]) Body mass index (BMI) [Ratio] 40.0 kg/m2 40.0 k g/m2 [facility] ([facility]) Body weight 271.00 [lb_av] 271.00 [lb_av] [facility] T ([facility]) Body height 69.0 [in_i] 69.0 [in_i] [facility] ([facility]) 5'9" Heart rate 70 /min 70 /min [facility] ([facility]) Diastolic blood pressure 76 mm[Hg] 76 mm[Hg] [facility] ([facility]) Systolic blood pressure 138 mm[Hg] 138 mm[Hg] M EDENT ([facility]) Body mass index (BMI) [Ratio] 38.1 kg/m2 38.1 k g/m2 [facility] ([facility]) Body weight 258.00 [lb_av] 258.00 [lb_av] MEDEN T ([facility]) Body height 69 [in_i] 69 [in_i] [facility] ([facility]) 5'9" Respiratory rate 12 /min 12 /min [facility] ( [facility]) Heart rate 72 /min 72 /min [facility] ([facility]) Diastolic blood pressure 88 mm[Hg] 88 mm[Hg] [facility] ([facility]) Systolic blood pressure 124 mm[Hg] 124 mm[Hg] M EDENT ([facility], ) Diastolic blood pressure--sitting 72 mm[Hg] 72 mm[Hg] [facility] ([facility]) large cuff, Ra Systolic blood pressure--sitting 122 mm[Hg] 122 mm[Hg] DEBBIE ([facility]) large cuff, Ra Heart rate 66 /min 66 /min DEBBIE ([facility] Body mass index (BMI) [Ratio] 38.4 kg/m2 38.4 k g/m2 DEBBIE ([facility]) Body height 70 [in_i] 70 [in_i] DEBBIE ([facility] 5'10" Body weight 268.00 [lb_av] 268.00 [lb_av] DEMI Schultz ([facility])
[2020-09-03] MEDS: COMBIVENT RESPIMAT 100-20MCG INHALER 4GM INH SCH ×3 (00:48→01:15)
[2020-09-03 00:52] LABS: BASO # 0.1 10^3/uL (0.0-0.2); BASO % 0.4 % (0.0-1.0); EOS # 0.3 10^3/uL (0.0-0.5); EOS % 2.4 % (0.0-3.0); HEMATOCRIT 33.6 % (42.0-52.0); HEMOGLOBIN 10.6 g/dl (13.5-17.5); LYMPH # 0.6 10^3/uL (1.5-5.0); LYMPH % 4.4 % (24.0-44.0); MEAN CORPUSCULAR HEMOGLOBIN 27.5 pg (27.0-33.0); MEAN CORPUSCULAR HGB CONC 31.5 g/dl (32.0-36.5); MEAN CORPUSCULAR VOLUME 87.3 fl (80.0-96.0); MONO # 0.3 10^3/uL (0.0-0.8); MONO % 2.1 % (0.0-8.0); NEUTROPHILS # 12.2 10^3/uL (1.5-8.5); NEUTROPHILS % 90.1 % (36.0-66.0); PLATELET COUNT, AUTOMATED 268 10^3/uL (150-450); RED BLOOD COUNT 3.85 10^6/uL (4.30-6.10); WHITE BLOOD COUNT 13.5 10^3/uL (4.0-10.0)
--- NOTE | 2020-09-03 01:15 | REPVR ---
PROCEDURE INFORMATION: Exam: XR Chest, 1 View Exam date and time: 09/03/2020 1:07 AM Age: 64 years old Clinical indication: Cough and dyspnea; Additional info: Dyspnea/cough TECHNIQUE: Imaging protocol: XR of the chest Views: 1 view. COMPARISON: CR PORTABLE CHEST X-RAY 08/13/2020 6:22 AM FINDINGS: Lungs: Degree of lung inflation is normal. No evidence of pulmonary edema. No focal consolidation or parenchymal lung mass. Pleural spaces: No pleural effusion or pneumothorax. Heart/Mediastinum: Cardiac silhouette appears normal. No adenopathy or hilar mass. Bones/joints: Osseous structures show no concerning abnormality. IMPRESSION: No acute or focal cardiopulmonary process. Electronically signed by: Esau Curran On 09/03/2020 01:15:49 AM
[2020-09-03 01:23] LABS: ALBUMIN 2.8 GM/DL (3.2-5.2); ALT/SGPT 19 U/L (12-78); BILIRUBIN,DIRECT 0.1 MG/DL (0.0-0.2); BILIRUBIN,TOTAL 0.6 MG/DL (0.2-1.0); BLOOD UREA NITROGEN 12 MG/DL (7-18); CALCIUM LEVEL 9.2 MG/DL (8.8-10.2); CARBON DIOXIDE LEVEL 28 MEQ/L (21-32); CHLORIDE LEVEL 102 MEQ/L (98-107); CK-MB VALUE MASS 1.4 NG/ML (<3.6); CPK CREATINE PHOSPHOKINASE 71 U/L (39-308); CREATININE FOR GFR 0.94 MG/DL (0.70-1.30); GLOMERULAR FILTRATION RATE > 60.0 (>49); GLUCOSE, FASTING 166 MG/DL (70-100); MB/CK RELATIVE INDEX 1.97 (< OR =4); NT-PRO BNP 35 PG/ML (<125); POTASSIUM SERUM 4.9 MEQ/L (3.5-5.1); SODIUM LEVEL 137 MEQ/L (136-145); TOTAL PROTEIN 6.7 GM/DL (6.4-8.2); TROPONIN I < 0.02 NG/ML (< 0.10)
--- OUTSIDE RECORDS SUMMARY | 2020-09-03 01:34 | CCD ---
Author Author [facility] Organization [facility] Address Unknown Phone Unavailable Care Team Providers Care Power Distribution Engineer Name Role Phone Dany, Brittnee FLARE MAN Unavailable Unavailable Dany, Brittnee FLARE MAN Unavailable Unavailable Dany, Brittnee FLARE MAN Unavailable Unavailable Dany, Brittnee FLARE MAN Unavailable Unavailable Dany, Brittnee FLARE MAN Unavailable Unavailable Dany, Brittnee FLARE MAN Unavailable Unavailable Dany, Brittnee FLARE MAN Unavailable Unavailable Dany, Brittnee FLARE MAN Unavailable Unavailable Dany, Brittnee FLARE MAN Unavailable Unavailable Dany, Brittnee FLARE MAN Unavailable Unavailable Dayn, Brittnee FLARE MAN Unavailable Unavailable Dany, Brittnee FLARE MAN Unavailable Unavailable Dany, Brittnee FLARE MAN Unavailable Unavailable Dany, Brittnee FLARE MAN Unavailable Unavailable Dany, Brittnee FLARE MAN Unavailable Unavailable Dany, Brittnee FLARE MAN Unavailable Unavailable Dany, Brittnee FLARE MAN Unavailable Unavailable Dany, Brittnee FLARE MAN Unavailable Unavailable Dany, Brittnee FLARE MAN Unavailable Unavailable Dany, Brittnee FLARE MAN Unavailable Unavailable Dany, Brittnee FLARE MAN Unavailable Unavailable Dany, Brittnee FLARE MAN Unavailable Unavailable Dany, Brittnee FLARE MAN Unavailable Unavailable Dany, Brittnee FLARE MAN Unavailable Unavailable Dany, Brittnee FLARE MAN Unavailable Unavailable Dany, Brittnee FLARE MAN Unavailable Unavailable Dany, Brittnee FLARE MAN Unavailable Unavailable Kaveh, L Jena PA Unavailable [...] Unavailable Aspen F Chas ALEJANDRE Unavailable Unavailable Asepn F Chas ALEJANDRE Unavailable Unavailable Aspen F Chas ALEJADNRE Unavailable Unavailable Aspen F Chas ALEJANDRE Unavailable [...] Unavailable Aspen F Chas ALEJANDRE Unavailable Unavailable Zana Tracy MD Unavailable Unavailable Zana Tracy MD Unavailable Unavailable Zana Tracy MD Unavailable Unavailable Zana Tracy MD Unavailable Unavailable Zana Tracy MD Unavailable Unavailable Zana Tracy MD Unavailable Unavailable Zana Tracy MD Unavailable Unavailable Zana Tracy MD Unavailable Unavailable [place]ville[place]ana MD Unavailable Unavailable [place], Zana ALEJANDRE Unavailable Unavailable [place], Zana ALEJANDRE Unavailable Unavailable [place], Zana ALEJANDRE Unavailable Unavailable [place], Zana MD Unavailable Unavailable [place], Zana MD Unavailable Unavailable [place], Zana ALEJANDRE Unavailable Unavailable [place], Zana MD Unavailable Unavailable [place], Zana MD Unavailable Unavailable [place], Zana MD Unavailable Unavailable [place], Zana ALEJANDRE Unavailable Unavailable [place], Zana ALEJANDRE Unavailable Unavailable [place], Zana ALEJANDRE Unavailable Unavailable [place], Zana ALEJANDRE Unavailable Unavailable [place], Zana ALEJANDRE Unavailable Unavailable [place], Zana ALEJANDRE Unavailable Unavailable [place], Zana ALEJANDRE Unavailable Unavailable [place], Zana ALEJANDRE Unavailable Unavailable [place]villeZana MD Unavailable Unavailable [place]Zana MD Unavailable Unavailable REINDL, GENIE ALEJANDRE Unavailable [...] Unavailable REINDL, GENIE ALEJANDRE Unavailable Unavailable REINDL, GEINE ALEJANDRE Unavailable Unavailable REINDL, GENIE ALEJANDRE Unavailable [...] is protected by Article 27-F of the [facility] Public Health law. If you continue you may have access to information: Regarding HIV / AIDS; Provided by facilities licensed or operated by the [facility] Office of Mental Health; or Provided by the [facility] Office for People With Developmental Disabilities. If such information is present, then the following [facility] mandated warning applies: This information has [...] law may result in a fine or residential sentence or both. A general authorization for the release of medical or other information is NOT sufficient authorization for further disc losure. 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 m others side Encounters Encounter Providers Location Date Indications Data Source(s ) Outpatient Attender: Genie Bashir/Demarcus/Tom/Kel hosea 06/25/2020 07:30:00 AM EST [facility] ([facility] Office Visit Attender: Chas Zuleta 06/12 08:30:00 AM EST [facility] ([facility] ) Outpatient Attender: GENIE Murphy/Tom/Rein dl 05/15/2020 02:15:00 PM EDT [facility] ([facility] Outpatient Attender: Genie Esposito/Tom/Kel ndl 04/10/2020 09:30:00 AM EDT [facility] ([facility] Outpatient Attender: Zana Murphy/Tom/Reind l 02/14/2020 02:10:00 PM EDT MED[facility] ([facility] Outpatient Attender: Chas Zuleta 02/06 11:30:00 AM EDT MED[facility] ([facility] ) Outpatient Attender: Zana Murphy/Tom/Luciusd l 12/13/2019 01:25:00 PM EDT [facility] ([facility] Outpatient Attender: Chas Zuleta 11/28 02:00:00 PM EDT MED[facility] ([facility] ) Outpatient Attender: Zana Cisse/Demarcus/Tom/Reind l 11/20/2019 10:00:00 AM EDT MEDENT ([facility], ) Outpatient Attender: Zana Cisse/Demarcus/Tom/Luciusd james 11/17/2019 09:50:00 AM EDT MED[facility] ([facility], ) Outpatient Attender: Brittnee Zuleta 09:00:00 AM EDT MED[facility] ([facility] ) Outpatient Attender: Justice Patton MD Main office - [facility] 10/24/2019 11:15:00 AM EDT MEDENT ([facility], ) Outpatient Attender: Justice Patton MD Main office - [facility] 07/25/2019 01:00:00 PM EST MED[facility] ([facility], ) Outpatient Attender: Jena OLGUIN Main Office 07/14/2019 08:15:0 0 AM EST [facility] ([facility]) Immunizations Vaccine Date Status Description Data Source(s) New in 2011. IIV4 05/20/2020 07:43:00 AM EST completed MED[facility] ([facility], ) This CVX code allows reporting of a vacc ination when formulation is unknown (for example, when recording a Influenza vaccination when noted on a vaccination card) 04/10/2020 12:24:00 PM EDT completed MEDEN T ([facility]) INFLUENZA VIRUS VACCINE QUADRIVALENT 2020-21 (6 [...] TABLET BY MOUTH EVERY DAY SOLD: 08/14/2020 [facility] 0.5 % 07/18/2020 12:00:00 AM EST cream 45 APPLY TO AFFECTED AREA(S) TWO TIMES A DAY DIRECTED DO NOT OVERUSE RISK OF ATROPHY APPLY TO AFFECTED AREA(S) TWO TIMES A DAY DIRECTED DO NOT OVERUSE RISK OF ATROPHY SOLD: 07/23/2020 [facility] Triamcinolone Acetonide 5 MG/ML Topical Cream Triamcinolone Acetonide 07/17/2020 12:00:00 AM EST active [facility] Ciprofloxacin 500 MG Oral Tablet Ciprofloxacin HCL 07/09/2020 12:00 :00 AM EST ORAL active MED[facility] ([facility], ) 500 mg 07/09/2020 12:00:00 AM EST tablet 20 TAKE ONE TABLET BY MOUTH TWICE A DAY TAKE ONE TABLET BY MOUTH TWICE A DAY SOLD: 07/09/2020 [facility] Albuterol 0.833 MG/ML / Ipratropium [place] 0.167 MG/M L Inhalant Solution Ipratropium [place]/Albuterol Sulfate 07/08/2020 12:00:00 AM EST active MED[facility] ([facility], ) 10 mg 07/08/2020 12:00:00 AM [...] FOR 5 DAYS THEN STOP SOLD: 07/09/2020 [facility] Prednisone 10 MG Oral Tablet Prednisone 07/08/2020 12:00:00 AM EST ORAL active MEDENT ([facility], ) atorvastatin 10 MG Oral Tablet ATORVASTATIN CALCIUM 07/05/2020 1 2:00:00 AM EST tablet 30 TAKE ONE TABLET BY MOUTH EVERY D AY TAKE ONE TABLET BY MOUTH EVERY DAY SOLD: 07/06/2020 [facility] 100,000 unit/mL 06/27/2020 12:00:00 AM EST suspension 200 TAKE 4ML BY MOUTH SWISH AND SWALLOW FOUR TIMES A DAY FOR 10 DAYS TAKE 4ML BY MOUTH SWISH AND SWALLOW FOUR TIMES A DAY FOR 10 DAYS SOLD: 06/29/2020 [facility] Nystatin 293187 UNT/ML Oral Suspension Nystatin 06/27/2020 12:00:00 AM EST ORAL active MEDENT ([facility], ) Spiriva Respimat Spiriva Respimat 06/25/2020 12:00:00 AM EST RESPIRATORY active MEDENT ([facility], ) 20 mg 06/12/2020 12:00:00 AM [...] Prednisone 06/12/2020 12:00:00 AM EST active [facility] ([facility]) Azithromycin 250 MG Oral Tablet Azithromycin 06/12/2020 12:00:00 AM EST active MED[facility] ([facility]) 160-4.5 mcg/actuation 06/03/2020 12:00:00 AM [...] 05/15/2020 12:00:00 AM EDT ORAL active MED[facility] ([facility]) 30 mg 03/27/2020 12:00:00 AM EDT [...] BY MOUTH TWICE A DAY SOLD: 03/30/2020 [facility] NEBULIZER AND COMPRESSOR 03/27/2020 12:00:00 AM [...] EDT strip 200 TEST TWICE DAILY TO [facility] BLOOD SUGAR TEST TWICE DAILY TO [facility] BLOOD SUGAR SOLD: 03/30/2020 [facility] [...] 2:00:00 AM EDT ORAL active MED[facility] ( [facility]) Acetaminophen 325 MG / Hydrocodone Bitartrate 5 MG Oral Tabl et [[place]] [place] 11/24/2019 12:00:00 AM EDT completed MED[facility] ([facility], ) Dexamethasone 1 MG/ML / Tobramycin 3 MG/ML Ophthalmic Suspension [Tobradex] Tobradex 11/24/2019 12:00:00 AM EDT AURICULAR completed MED[facility] ([facility], ) Levofloxacin 750 MG Oral Tablet [Levaquin] Levaquin 11/16 12:00:00 AM EDT ORAL completed [facility] ([facility], ) Acetaminophen 325 MG / Oxycodone Hydrochloride 5 MG Or al Tablet Oxycodone-Acetaminophen 11/17/2019 12:00:00 AM EDT active MED[facility] ([facility]) 750 mg 11/17/2019 12:00:00 AM EDT tablet 5 TAKE ONE TABLET BY MOUTH EVERY DAY TAKE ONE TABLET BY MOUTH EVERY DAY SOLD: 11/17/2019 [facility] tramadol hydrochloride 50 MG Oral Tablet Tramadol HCL 11/15/2019 12:00:00 AM EDT ORAL active MED[facility] ([facility]) Azithromycin 250 MG Oral Tablet Azithromycin 11/15/2019 12:00:00 AM EDT completed [facility] ([facility]) Ciprofloxacin 3 MG/ML / Dexamethasone 1 MG/ML Otic Joanne pension [Ciprodex] Ciprodex 11/15/2019 12:00:00 AM EDT AURICULAR completed [facility] ([facility]) 20 mg 07/29/2019 12:00:00 AM EST [...] 07/25/2019 12:00:00 AM EST ORAL active MED[facility] ([facility], ) duloxetine 30 MG Delayed Release Oral Capsule Duloxetine HCL 07/13/2019 12:00:00 AM EST ORAL active [facility] ([facility]) duloxetine 30 MG Delayed Release Oral Capsule Duloxetine HCL 05/03/2019 12:00:00 AM EDT ORAL completed [facility] ([facility]) 12 HR Carbamazepine 100 MG Extended Release Oral Capsule Car bamazepine ER 05/02/2019 12:00:00 AM EDT ORAL completed MEDENT ([facility], ) Insurance Providers Payer name Policy type / Coverage type Policy ID Covered constitution party ID Covered constitution party's relationship to cobb Policy Cobb Plan Information AETNA MEDICARE [id number] SP MEBTN [id number] AETNA MEDICARE [id number] SP MEBTN K6Y AETNA MEDICARE O [id number] S MEBTN K6Y MEDICARE [id number] SP [id number] AETNA MEDICARE [id number] SP MEBTN K6Y WELLCARE [id number] SP [id number] WELLCARE O [id number] S [id number] WELLCARE [id number] SP [id number] WELLCARE [id number] SP [id number] [employer] [place] Commercial [id number] Self [id number] Wellcare Commercial [id number] Self [id number] MVP Medicaid Commercial [id number] Self [id number] SELF PAY ONLY SP MVP MCDHMO [id number] SP [id number] [employer] [place] Commercial [id number] Self [id number] MVP Health Maintenance Organization (HMO) [id number] Self [id number] MVP Medicaid Commercial [id number] Self [id number] MVP Healthcare Commercial [id number] Self [id number] MVP HEALTH CARE O [id number] S [id number] MVP MCDHMO [id number] SP [id number] MVP MCDHMO [id number] SP [id number] MVP MCDHMO [id number] SP [id number] MEDICAID [id number] SP [id number] MEDICAID [id number] SP [id number] MVP Healthcare Commercial MVPM Self MVPM MVP MCDHMO [id number] SP [id number] [facility] PHY [id number] SP [id number] [facility] PHY [id number] SP [id number] [place] 302/307 [id number] SP [id number] MVP HEALTH CARE P [id number] S [id number] MVP HEALTH CARE P [id number] S [id number] P UNAVAILABLE UNAVAILA BLE EXCELLUS BCBS P [id number] S [id number] [id number] [place] PPO 302/307 [id number] SP [id number] [facility] PHY [id number] SP [id number] STATE INSURANCE FUND [id number] SP [id number] BCBS [place] 304/[id number] SP [id number] BCBS [facility] 303/803 [id number] SP [id number] BCBS [facility] [facility] 303/803 [id number] SP [id number] BCBS [place] [id number] SP [id number] [facility] [id number] SP [id number] BCBS [place] [id number] [place] [id number] Problems, Conditions, and Diagnoses Code Display Name Description Problem Type Effective Dates Data Source(s) 7930577 Ex-smoker Ex-smoker Problem 04/10/2020 12:00:00 AM ED T MEDENT ([facility], ) [id number] Panacinar emphysema Panacinar emphysema Problem 0 04/10/2020 12:00:00 AM EDT [facility] ([facility] system) [id number] Chronic obstructive lung disease Chronic obstruc tive lung disease Problem 04/10/2020 12:00:00 AM EDT MED[facility] ([facility]) [id number] Aortic valve disorder Aortic valve disorder Problem 07/14/2019 12:00:00 AM EST MEDENT ([facility]) Surgeries/Procedures Procedure Description Date Indications Data Source(s) Endoscopy Upper GI Complex Diagnostic 06/27/2020 12:00 :00 AM EST MEDENT ([facility], ) Dilate Esophagus Unguided Sound Or Bougie 06/27/2020 1 2:00:00 AM EST MED[facility] ([facility], ) Spirometry 06/25/2020 12:00:00 AM EST M EDENT (Health system) Spirometry 04/10/2020 12:00:00 AM EDT M EDENT ([facility], ) Binocular Microscopy 11/27/2019 12:00:00 AM EDT MED[facility] ([facility], ) Binocular Microscopy 11/24/2019 12:00:00 AM EDT MED[facility] ([facility], ) Binocular Microscopy 11/17/2019 12:00:00 AM EDT [facility] (Health system) ECHO TTHRC R-T 2D W/WOM-MODE COMPL SPEC&COLR DOP 07/06 12:00:00 AM EST MED[facility] ([facility]) Results ID Date Data Source [id number] 08/13/2020 06:30:00 AM EST MED[facility] ([facility]) Name Value Range Interpretation Code Description Data Hannah rce(s) Supporting Document(s) ABG pH (Arterial) 7.394 units 7.350-7.450 [facility] ( [facility]) ABG Total Co2 27.8 meq/L 23.0-31.0 MED[facility] ([facility]) ABG Partial Pressure O2 175.6 mmHg 75.0-100.0 MEDE NT ([facility]) ABG Partial Pressure Co2 44.2 mmHg 35.0-45.0 MEDEN T ([facility]) ABG Hco3 26.4 meq/L 22.0-26.0 [facility] ABG Base Excess 1.1 [facility] ([facility]) ABG Standard Hco3 25.5 meq/L 22.0-26.0 [facility] ([facility]) ABG O2 Saturation 99.5 % 95.0-99.0 [facility] ([facility]) ID Date Data Source [id number] 08/13/2020 05:39:00 AM EST MED[facility] ([facility]) Name Value Range Interpretation Code Description Data Hannah rce(s) Supporting Document(s) Respiratory Panel Laboratory test result MED[facility] ([facility]) This respiratory PCR panel detects Influ [...] - SARS-CoV-2 (COVID19) ID Date Data Source [id number] 08/13/2020 05:39:00 AM EST MED[facility] ([facility]) Name Value Range Interpretation Code Description Data Hannah rce(s) Supporting Document(s) Glucose, Fasting 237 mg/dL 70-100 MED[facility] ([facility]) Creatinine For GFR 1.00 mg/dL 0.70-1.30 MED[facility] ([facility]) Blood Urea Nitrogen 14 mg/dL 7-18 [facility] ([facility]) Sodium Level 137 meq/L 136-145 [facility] ([facility]) Glomerular Filtration Rate Laboratory test result [facility] <content>Units are mL/min/1.73 m2</content>
<content></content>
<content>Chronic Kidney Disease Staging per NKF:</content>
<content></content>
<content>Stage I & II GFR >=60 Normal to Mildly Decreased</content>
<content>Stage III GFR 30- 59 Moderately Decreased</content>
<content>Stage IV GFR 15-29 Severely Decreased</content>
<content>Stage V GFR <15 Very Little GFR Left</content>
<content>ESRD GFR <15 on PRESS DEPARTMENT MANAGER</content>
<content></content> Carbon Dioxide Level 31 meq/L 21-32 MED[facility] ([facility]) Potassium Serum 4.5 meq/L 3.5-5.1 [facility] ([facility]) Chloride Level 101 meq/L 98-107 [facility] ([facility]) Anion Gap 5 meq/L 8-16 [facility] Calcium Level 9.0 mg/dL 8.8-10.2 [facility] ([facility]) ID Date Data Source [id number] 08/13/2020 05:39:00 AM EST MED[facility] ([facility]) Name Value Range Interpretation Code Description Data Hannah rce(s) Supporting Document(s) Ast/Sgot 16 U/L 7-37 [facility] Alkaline Phosphatase 118 U/L 45-117 [facility] ([facility]) Alt/SGPT 27 U/L 12-78 [facility] Bilirubin,Total 0.2 mg/dL 0.2-1.0 [facility] ([facility]) Total Protein 6.9 GM/DL 6.4-8.2 [facility] ([facility]) Bilirubin,Direct 0.1 mg/dL 0.0-0.2 [facility] ([facility]) Albumin 2.9 GM/DL 3.2-5.2 [facility] ([facility] Albumin/Globulin Ratio 0.7 [facility] ([facility]) ID Date Data Source [id number] 08/13/2020 05:39:00 AM EST MED[facility] ([facility]) Name Value Range Interpretation Code Description Data Hannah rce(s) Supporting Document(s) White Blood Count 15.5 10 4.0-10.0 MED[facility] ([facility]) Hematocrit 44.0 % 42.0-52.0 [facility] ([facility] Red Blood Count 5.00 10 4.30-6.10 [facility] ([facility]) Hemoglobin 13.8 g/dL 13.5-17.5 [facility] ([facility] Mean Corpuscular Volume 88.0 fl 80.0-96.0 [facility] ([facility]) Mean Corpuscular Hemoglobin 27.6 pg 27.0-33.0 PA [facility]ENT ([facility]) Mean Corpuscular HGB Conc 31.4 g/dL 32.0-36.5 MEDE NT ([facility]) Neutrophils % 77.5 % 36.0-66.0 [facility] ([facility]) Platelet Count, Automated 464 10 150-450 MEDE NT ([facility]) Red Cell Distribution Width 13.6 % 11.5-14.5 ME DENT ([facility]) [place] % 7.0 % 0.0-5.0 [facility] Eos % 3.6 % 0.0-3.0 [facility] Lymph % 10.4 % 24.0-44.0 [facility] Immature Granulocyte % 1.0 % 0-3.0 [facility] ([facility]) Nucleated Red Blood Cell % 0.0 % 0-0 MED ENT ([facility]) Baso % 0.5 % 0.0-1.0 [facility] Lymph # 1.6 10 1.5-5.0 [facility] Neutrophils # 12.0 10 1.5-8.5 [facility] ([facility]) [place] # 1.1 10 0.0-0.8 [facility] Baso # 0.1 10 0.0-0.2 [facility] Eos # 0.6 10 0.0-0.5 [facility] ID Date Data Source [id number] 08/13/2020 05:39:00 AM EST [facility] Name Value Range Interpretation Code Description Data Hannah rce(s) Supporting Document(s) SARS-CoV-2 (COVID 19) NEGATIVE - SARS-CoV-2 (COVID19) [facility] This lab was ordered by [facility] a nd reported by [facility]. ID Date Data Source [id number] 06/25/2020 08:35:00 AM EST MED[facility] ([facility], ) Name Value Range Interpretation Code Description Data Hannah rce(s) Supporting Document(s) PDFReport Laboratory test result MEDENT ([facility], ) FVC-Pre 2.03 L MEDENT ([facility]) FVC-%Pred-Pre 44 L MEDENT ([facility]) FVC-Pred 4.61 L MED[facility] ([facility]) Fev1-Pred 3.44 L [facility] ([facility]) FVC-LLN 3.67 L [facility] ([facility]) Fev1-Pre 0.86 L MED[facility] ([facility]) Fev6-Pred 4.37 L [facility] ([facility]) Fev1-%Pred-Pre 25 L MEDENT ([facility], ) Fev1-LLN 2.65 L MED[facility] ([facility]) Fev6-LLN 3.46 L [facility] ([facility]) Fev6-%Pred-Pre 45 L MED[facility] ([facility]) Fev6-Pre 2.01 L MED[facility] ([facility]) Eoj2wvk-Xhxn 75 % [facility] ([facility] system) Jfl7uel-%Pred-Pre 56 % [facility] ([facility]) Vwy1wpr-Uzx 42 % [facility] (Health system) Ili1jgm-DAL 65 % [facility] (Health system) Dsa8cit-Tiyx 95 % [facility] (Health system) Cad1hup-Ocq 99 % [facility] (Health system) Csf3ofz-%Pred-Pre 103 % [facility] ([facility]) FEFMax-Pred 8.82 L/E/sec MEDENT ([facility]) FEFMax-Pre 3.05 L/E/sec MED[facility] ([facility]) FEFMax-LLN 6.50 L/E/sec MED[facility] ([facility]) Oes5767-Vads 2.72 L/E/sec [facility] ([facility]) FEFMax-%Pred-Pre 34 L/E/sec [facility] ([facility]) Pcd2104-Pwt 0.36 L/E/sec [facility] ([facility]) Dpy1041-VAK 1.12 L/E/sec [facility] ([facility]) Njo1349-%Pred-Pre 13 L/E/sec MED[facility] ([facility]) ExpTime-Pre 6.44 sec [facility] (Health system) Fjq6gbd9-Ppdn 78 % MED[facility] ([facility]) Fwc0lxr0-%Pred-Pre 54 % [facility] ([facility]) Gkx9xdf5-Avd 43 % [facility] ([facility] system) Gxj6fte4-XBA 69 % [facility] (Health system) ID Date Data Source [id number] 06/22/2020 11:45:00 AM EST [facility] Name Value Range Interpretation Code Description Data Hannah rce(s) Supporting Document(s) SARS coronavirus 2 RNA [facility] This lab was ordered by [facility] and reported by [facility]. ID Date Data Source [id number] 06/12/2020 09:28:00 AM EST MED[facility] ([facility]) Name Value Range Interpretation Code Description Data Hannah rce(s) Supporting Document(s) Hemoglobin A1c/Hemoglobin.total in Blood 8.5 % [facility] ([facility]) Lab Result Notes: Pre-Diabetes 5.7 - 6.4 % Diabetes = or > 6.5% Glucose mean value [Mass/volume] in Blood Estimated fr om glycated hemoglobin 197 mg/dL 60-110 [facility] ([facility] ) ID Date Data Source [id number] 06/12/2020 09:28:00 AM EST MED[facility] ([facility]) Name Value Range Interpretation Code Description Data Hannah rce(s) Supporting Document(s) Glucose [Mass/volume] in Serum or Plasma 221 mg/dL 74-99 [facility] ([facility]) 100-125 mg/dL PRE-DIABETES/FASTING >126 mg/dL DIABETES/FASTING Urea nitrogen [Mass/volume] in Serum or Plasma 22 mg/dL 7-18 [facility] ([facility]) Creatinine 1.1 mg/dL 0.6-1.3 [facility] Potassium [Moles/volume] in Serum or Plasma 4.7 meq/L 3.5-5.1 [facility] ([facility]) Sodium [Moles/volume] in Serum or Plasma 140 meq/L 136-145 [facility] ([facility]) Chloride [Moles/volume] in Serum or Plasma 102 meq/L 98-107 [facility] ([facility]) Calcium [Mass/volume] in Serum or Plasma 9.2 mg/dL 8.5-10.1 [facility] ([facility]) Carbon dioxide, total [Moles/volume] in Serum or Plasma 30 meq/L 21 -32 [facility] ([facility]) Alkaline phosphatase isoenzyme [Units/volume] in Serum or Pl asma 120 mg/dL 46-116 [facility] ([facility]) Aspartate aminotransferase [Enzymatic activity/volume] in Serum or Plasma 13 U/L 15-37 [facility] ([facility] ) Total Bilirubin 0.5 mg/dL 0.2-1.0 [facility] ([facility]) Proteinase 3 Ab [Units/volume] in Serum 7.0 g/dL 6.4-8.2 [facility] ([facility]) Albumin [Mass/volume] in Serum or Plasma 3.6 g/dL 3.4-5.0 [facility] ([facility]) Alanine aminotransferase [Enzymatic activity/volume] in Seru m or Plasma 26 U/L 12-78 [facility] Glomerular filtration rate/1.73 sq M pre dicted among non-blacks [Volume Rate/Area] in Serum or Plasma by Creatinine-based formula (MDRD) Laboratory test result [facility] ([facility] Glomerular filtration rate/1.73 sq M pre dicted among blacks [Volume Rate/Area] in Serum or Plasma by Creatinine-based formula (MDRD) Laboratory test [facility] <content>CHRONIC KIDNEY DISEASE STAGING PER NKF</content>
<content></content>
<content>STAGE I & II GFR >= 60 NORMAL TO MILDLY DECREASED</content>
<content>STAGE III GFR 30-59 MODERATELY DECREASED</content>
<content>STAGE IV GFR 15-29 SEVERELY DECREASED</content>
<content>STAGE V GFR <15 VERY LITTLE GFR LEFT</content>
<content>ESRD GFR <15 ON PRESS DEPARTMENT MANAGER</content>
<content></content> A/G Ratio 1.06 CALC 1.00-1.90 [facility] ([facility]) ID Date Data Source [id number] 06/12/2020 09:28:00 AM EST [facility] ([facility]) Name Value Range Interpretation Code Description Data Hannah rce(s) Supporting Document(s) Hemoglobin A1c/Hemoglobin.total in Blood Laboratory test result [facility] ID Date Data Source [id number] 04/30/2020 12:03:00 PM EDT [facility] Name Value Range Interpretation Code Description Data Hannah rce(s) Supporting Document(s) Thyrotropin [Units/volume] in Serum or Plasma by Detec tion limit <= 0.05 mIU/L 1.240 uIU/ML 0.358-3.740 [facility] ) Thyroperoxidase Ab [Units/volume] in Serum or Plasma 31.2 U/ML [facility] Triiodothyronine (T3) [Mass/volume] in Serum or Plasma 97.8 ng/dL 60.0-181.0 [facility] ([facility] Thyroxine (T4) free [Mass/volume] in Serum or Plasma 1.09 ng/dL 0.76- 1.46 [facility] Thyroglobulin Ab [Units/volume] in Serum or Plasma Laboratory test re sult [facility] ID Date Data Source [id number] 04/30/2020 12:03:00 PM EDT [facility] Name Value Range Interpretation Code Description Data Hannah rce(s) Supporting Document(s) Blood Urea Nitrogen 20 mg/dL 7-18 [facility] ([facility]) Glucose, Fasting 188 mg/dL 70-100 [facility] ([facility]) Sodium Level 138 meq/L 136-145 [facility] ([facility]) Creatinine For GFR 1.02 mg/dL 0.70-1.30 [facility] ([facility] Glomerular Filtration Rate Laboratory test result [facility] <content>Units are mL/min/1.73 m2</content>
<content></content>
<content>Chronic Kidney Disease Staging per NKF:</content>
<content></content>
<content>Stage I & II GFR >=60 Normal to Mildly Decreased</content>
<content>Stage III GFR 30- 59 Moderately Decreased</content>
<content>Stage IV GFR 15-29 Severely Decreased</content>
<content>Stage V GFR <15 Very Little GFR Left</content>
<content>ESRD GFR <15 on PRESS DEPARTMENT MANAGER</content>
<content></content> Potassium Serum 4.7 meq/L 3.5-5.1 [facility] ([facility]) Carbon Dioxide Level 25 meq/L 21-32 [facility] ([facility]) Chloride Level 106 meq/L 98-107 [facility] Anion Gap 7 meq/L 8-16 [facility] ([facility]) Ast/Sgot 20 U/L 7-37 [facility] ([facility]) Calcium Level 9.5 mg/dL 8.8-10.2 [facility] ([facility] Alt/SGPT 29 U/L 12-78 [facility] ([facility]) Alkaline Phosphatase 117 U/L 45-117 [facility] Bilirubin,Total 0.7 mg/dL 0.2-1.0 [facility] ([facility]) Total Protein 7.8 GM/DL 6.4-8.2 [facility] ([facility]) Albumin/Globulin Ratio 1.1 [facility] ([facility]) Albumin 4.0 GM/DL 3.2-5.2 [facility] ([facility]) ID Date Data Source [id number] 04/30/2020 12:03:00 PM EDT [facility] ([facility]) Name Value Range Interpretation Code Description Data Hannah rce(s) Supporting Document(s) Red Blood Count 5.45 10 4.30-6.10 [facility] ([facility]) Hemoglobin 16.1 g/dL 13.5-17.5 [facility] ([facility]) White Blood Count 11.9 10 4.0-10.0 [facility] ([facility]) Hematocrit 48.8 % 42.0-52.0 [facility] Mean Corpuscular Volume 89.5 fl 80.0-96.0 [facility] ([facility]) Mean Corpuscular Hemoglobin 29.5 pg 27.0-33.0 [facility] ([facility]) Platelet Count, Automated 360 10 150-450 [facility] ([facility]) Mean Corpuscular HGB Conc 33.0 g/dL 32.0-36.5 [facility] ([facility]) Red Cell Distribution Width 13.2 % 11.5-14.5 [facility] ([facility]) Neutrophils % 75.8 % 36.0-66.0 [facility] [facility]) Lymph % 14.3 % 24.0-44.0 [facility]) [place] % 6.8 % 0.0-5.0 [facility]) Immature Granulocyte % 0.4 % 0-3.0 [facility] ([facility]) Baso % 0.8 % 0.0-1.0 [facility] Eos % 1.9 % 0.0-3.0 [facility] Lymph # 1.7 10 1.5-5.0 [facility] Neutrophils # 9.0 10 1.5-8.5 [facility] ([facility]) Nucleated Red Blood Cell % 0.0 % 0-0 [facility] ([facility]) Baso # 0.1 10 0.0-0.2 [facility] [place] # 0.8 10 0.0-0.8 [facility] Eos # 0.2 10 0.0-0.5 [facility] ID Date Data Source [id number] 04/10/2020 09:29:00 AM EDT [facility] ([facility], ) Name Value Range Interpretation Code Description Data Hannah rce(s) Supporting Document(s) PDFReport Laboratory test result [facility] ([facility], ) FVC-Pred 4.61 L [facility] ([facility], ) FVC-%Pred-Pre 56 L [facility] ([facility], ) FVC-Pre 2.59 L [facility] ([facility], ) FVC-LLN 3.67 L [facility] ([facility]) Fev1-%Pred-Pre 30 L [facility] ([facility], ) Fev1-Pred 3.44 L [facility] ([facility], ) Fev1-Pre 1.05 L [facility] ([facility], ) Fev1-LLN 2.65 L [facility] ([facility], ) Fev6-Pre 2.58 L [facility] ([facility]) Fev6-Pred 4.37 L [facility] ([facility]) Xfx4cam-Gvwd 75 % [facility] ([facility], ) Fev6-LLN 3.46 L [facility] ([facility], ) Fev6-%Pred-Pre 59 L [facility] ([facility], ) Cyp2qyi-Wvv 41 % [facility] ([facility]) Usk2vre-%Pred-Pre 54 % [facility] ([facility]) Qmj2yeu-Hedt 95 % [facility] ([facility]) Bdf2hjk-USD 65 % [facility] ([facility]) Eer9ckx-%Pred-Pre 104 % [facility] ([facility]) Zvq1xwb-Hqa 100 % [facility] ([facility]) FEFMax-Pre 4.38 L/E/sec [facility] ([facility], ) FEFMax-Pred 8.82 L/E/sec [facility] ([facility]) FEFMax-%Pred-Pre 49 L/E/sec [facility] ([facility]) Rac1357-Hfrs 2.72 L/E/sec [facility] ([facility]) FEFMax-LLN 6.50 L/E/sec [facility] ([facility]) Cmm1881-Skf 0.46 L/E/sec [facility] ([facility]) Kth6726-%Pred-Pre 16 L/E/sec [facility] ([facility]) Ckl6560-YCL 1.12 L/E/sec [facility] ([facility]) ExpTime-Pre 6.33 sec [facility] ([facility]) Vcv1lke3-Nblk 78 % [facility] ([facility]) Yov3hya2-%Pred-Pre 52 % [facility] ([facility]) Xkw6lwm5-Naj 41 % [facility] ([facility]) Opo1toa8-FWO 69 % [facility] ([facility]) ID Date Data Source [id number] 04/04/2020 11:03:00 AM EDT [facility] ([facility]) Name Value Range Interpretation Code Description Data Hannah rce(s) Supporting Document(s) Laboratory test finding (navigational concept) Laboratory test result [facility] ([facility]) ID Date Data Source [id number] 02/07/2020 12:20:00 PM EDT [facility] ([facility]) Name Value Range Interpretation Code Description Data Hannah rce(s) Supporting Document(s) Microalbumin Urine 9.8 mg/L 1.3-20.0 [facility] ([facility]) Urine Creatinine 173.7 mg/dL 30.0-125.0 [facility] ([facility]) Microalb/Creat Ratio 5.6 ug/mg 0.0-30.0 [facility] ([facility]) ID Date Data Source [id number] 02/06/2020 10:33:00 AM EDT [facility] ([facility]) Name Value Range Interpretation Code Description Data Hannah rce(s) Supporting Document(s) Prostate specific Ag [Mass/volume] in Serum or Plasma 0.61 ng/mL [facility] ([facility]) This assay was performed on the Siemens Dimension EXL using the B- Galactosidase/CPRG methodology and should not be compared interchangeably with other methods. The PSA should not be used alone as a screening test for the presence or absence of malignant disease. ID Date Data Source [id number] 02/06/2020 10:33:00 AM EDT [facility] ([facility]) Name Value Range Interpretation Code Description Data Hannah rce(s) Supporting Document(s) Triglyceride [Mass/volume] in Serum or Plasma 87 mg/dL 30-150 [facility] ([facility]) Cholesterol [Mass/volume] in Serum or Plasma 170 mg/dL 131-200 [facility] ([facility]) Cholesterol in LDL [Mass/volume] in Serum or Plasma by calcu lation 98 CALC 50-159 [facility] ([facility]) Cholesterol in HDL [Mass/volume] in Serum or Plasma 55 mg/dL 35-60 [facility] ([facility]) ID Date Data Source [id number] 02/06/2020 10:33:00 AM EDT [facility] ([facility]) Name Value Range Interpretation Code Description Data Hannah rce(s) Supporting Document(s) Glucose [Mass/volume] in Serum or Plasma 180 mg/dL 74-99 [facility] ([facility]) 100-125 mg/dL PRE-DIABETES/FASTING >126 mg/dL DIABETES/FASTING Urea nitrogen [Mass/volume] in Serum or Plasma 19 mg/dL 7-18 [facility] ([facility]) Sodium [Moles/volume] in Serum or Plasma 142 meq/L 136-145 [facility] ([facility]) Creatinine 1.1 mg/dL 0.6-1.3 [facility] Potassium [Moles/volume] in Serum or Plasma 4.8 meq/L 3.5-5.1 [facility] ([facility]) Carbon dioxide, total [Moles/volume] in Serum or Plasma 28 meq/L 21 -32 [facility] ([facility]) Chloride [Moles/volume] in Serum or Plasma 104 meq/L 98-107 [facility] ([facility]) Aspartate aminotransferase [Enzymatic activity/volume] in Serum or Plasma 14 U/L 15-37 [facility] ([facility] ) Alkaline phosphatase isoenzyme [Units/volume] in Serum or Pl asma 86 mg/dL 46-116 [facility] ([facility]) Calcium [Mass/volume] in Serum or Plasma 9.2 mg/dL 8.5-10.1 [facility] ([facility]) Total Bilirubin 0.5 mg/dL 0.2-1.0 [facility] ([facility]) Proteinase 3 Ab [Units/volume] in Serum 7.2 g/dL 6.4-8.2 [facility] ([facility]) Albumin [Mass/volume] in Serum or Plasma 3.7 g/dL 3.4-5.0 [facility] ([facility]) Alanine aminotransferase [Enzymatic activity/volume] in Seru m or Plasma 29 U/L 12-78 [facility]) A/G Ratio 1.06 CALC 1.00-1.90 [facility] ([facility]) Glomerular filtration rate/1.73 sq M pre dicted among non-blacks [Volume Rate/Area] in Serum or Plasma by Creatinine-based formula (MDRD) Laboratory test result [facility] ([facility] Glomerular filtration rate/1.73 sq M pre dicted among blacks [Volume Rate/Area] in Serum or Plasma by Creatinine-based formula (MDRD) Laboratory test result [facility]) <content>CHRONIC KIDNEY DISEASE STAGING PER NKF</content>
<content></content>
<content>STAGE I & II GFR >= 60 NORMAL TO MILDLY DECREASED</content>
<content>STAGE III GFR 30-59 MODERATELY DECREASED</content>
<content>STAGE IV GFR 15-29 SEVERELY DECREASED</content>
<content>STAGE V GFR <15 VERY LITTLE GFR LEFT</content>
<content>ESRD GFR <15 ON PRESS DEPARTMENT MANAGER</content>
<content></content> ID Date Data Source [id number] 02/06/2020 10:33:00 AM EDT [facility] ([facility]) Name Value Range Interpretation Code Description Data Hannah rce(s) Supporting Document(s) Glucose mean value [Mass/volume] in Blood Estimated fr om glycated hemoglobin 174 mg/dL 60-110 [facility] ([facility] ) Hemoglobin A1c/Hemoglobin.total in Blood 7.7 g/dL 4.8-5.6 [facility] ([facility]) Lab Result Notes: Pre-Diabetes 5.7 - 6.4 % Diabetes = or > 6.5% ID Date Data Source [id number] 02/06/2020 10:33:00 AM EDT [facility] ([facility]) Name Value Range Interpretation Code Description Data Hannah rce(s) Supporting Document(s) Leukocytes [#/volume] in Blood by Automated count 10.0 x10*3/UL 4.1-1 0.9 [facility] ([facility]) Hemoglobin [Mass/volume] in Blood 14.9 g/dL 12.0-18.0 [facility] ([facility]) Erythrocytes [#/volume] in Blood by Automated count 4.98 x10*6/UL 4.2 0-6.30 [facility] ([facility] Hematocrit [Volume Fraction] of Blood by Automated count 44.6 % 3 7.0-51.0 [facility] ([facility] MCV 89.5 fL 80.0-97.0 [facility] ([facility]) Erythrocyte distribution width [Ratio] by Automated count 13.5 % 11.6-13.7 [facility] ([facility]) MCH 30.0 pg 26.0-32.0 [facility] ([facility]) MCHC 33.5 g/dL 31.0-38.0 [facility] ([facility]) MPV 8.0 FL 7.8-11.0 [facility] ([facility]) Platelets [#/volume] in Blood by Automated count 363 x10*3/UL 140-440 [facility] ([facility]) Lymph % 19.3 % 10.0-58.5 [facility] ([facility]) Neut % 74.9 % 37.0-92.0 [facility] ([facility]) Lymph # 1.9 x10*3/UL 0.6-4.1 [facility] ([facility]) Mid % 5.8 % 1.7-9.3 [facility] ([facility]) Mid # 0.6 x10*3/UL 0.1-0.6 [facility] ([facility]) Neut # 7.5 x10*3/UL 2.0-7.8 [facility] ([facility]) ID Date Data Source [id number] 11/24/2019 01:09:00 PM EDT [facility] ([facility]) Name Value Range Interpretation Code Description Data Hannah rce(s) Supporting Document(s) Potassium [Moles/volume] in Serum or Plasma 4.6 meq/L 3.5-5.1 [facility] ([facility]) ID Date Data Source [id number] 11/24/2019 12:19:00 PM EDT [facility] ([facility]) Name Value Range Interpretation Code Description Data Hannah rce(s) Supporting Document(s) Laboratory test finding (navigational concept) 49.0 % 38.0-51.0 [facility] ([facility]) Laboratory test finding (navigational concept) 187 mg/dL 70-105 [facility] ([facility]) Laboratory test finding (navigational concept) 5.5 meq/L 3.5-5.1 [facility] ([facility]) Laboratory test finding (navigational concept) 138 meq/L 136-145 [facility] ([facility]) Laboratory test finding (navigational concept) 4.3 mg/dL 4.5-5.3 [facility] ([facility]) Laboratory test finding (navigational concept) 106 meq/L 98-109 [facility] ([facility]) Laboratory test finding (navigational concept) 25.0 MM/L 23.0-27.0 [facility] ([facility]) Laboratory test finding (navigational concept) 26 mg/dL 8-26 [facility] ([facility]) Laboratory test finding (navigational concept) 1.0 mg/dL 0.6-1.3 [facility] ([facility]) ID Date Data Source [id number] 11/24/2019 12:18:00 PM EDT [facility] ([facility]) Name Value Range Interpretation Code Description Data Hannah rce(s) Supporting Document(s) White Blood Count 11.2 10 4.0-10.0 [facility] [facility]) Red Blood Count 5.35 10 4.30-6.10 [facility] ([facility]) Hemoglobin 16.6 g/dL 13.5-17.5 [facility] Hematocrit 48.2 % 42.0-52.0 [facility] Mean Corpuscular Hemoglobin 31.0 pg 27.0-33.0 [facility] ([facility]) Mean Corpuscular Volume 90.1 fl 80.0-96.0 [facility] ([facility]) Mean Corpuscular HGB Conc 34.4 g/dL 32.0-36.5 [facility] ([facility]) Platelet Count, Automated 406 10 150-450 [facility] ([facility]) Red Cell Distribution Width 13.0 % 11.5-14.5 [facility] ([facility]) Neutrophils % 73.4 % 36.0-66.0 [facility] ([facility]) [place] % 6.6 % 0.0-5.0 [facility] Lymph % 15.4 % 24.0-44.0 [facility] Eos % 2.8 % 0.0-3.0 [facility]) Immature Granulocyte % 1.0 % 0-3.0 [facility] ([facility]) Baso % 0.8 % 0.0-1.0 [facility]) Nucleated Red Blood Cell % 0.0 % 0-0 [facility] ([facility]) Lymph # 1.7 10 1.5-5.0 [facility]) Neutrophils # 8.2 10 1.5-8.5 [facility] ([facility]) Eos # 0.3 10 0.0-0.5 [facility]) [place] # 0.7 10 0.0-0.8 [facility] Baso # 0.1 10 0.0-0.2 [facility]) ID Date Data Source [id number] 11/24/2019 11:43:00 AM EDT [facility] ([facility], ) Name Value Range Interpretation Code Description Data Hannah rce(s) Supporting Document(s) Bacteria identified in Ear by Aerobe culture Laboratory test res ult Normal (applies to non-numeric results) [facility] ([facility], ) FULL REPORT IN LAB NOTES ([facility] and [facility] ). NORMAL ELENO PRESENT ID Date Data Source [id number] 08/02/2019 08:50:00 AM EST [facility] ([facility]) Name Value Range Interpretation Code Description Data Hannah rce(s) Supporting Document(s) Thyrotropin [Units/volume] in Serum or Plasma by Detec tion limit <= 0.05 mIU/L 1.66 uIU/mL 0.36-3.74 [facility] ) ID Date Data Source [id number] 08/02/2019 08:50:00 AM EST [facility] ([facility]) Name Value Range Interpretation Code Description Data Hannah rce(s) Supporting Document(s) Cholesterol [Mass/volume] in Serum or Plasma 213 mg/dL 131-200 [facility] ([facility]) Triglyceride [Mass/volume] in Serum or Plasma 301 mg/dL 30-150 [facility] ([facility]) Cholesterol in LDL [Mass/volume] in Serum or Plasma by calcu lation 112 CALC 50-159 [facility] ([facility]) Cholesterol in HDL [Mass/volume] in Serum or Plasma 41 mg/dL 35-60 [facility] ([facility]) ID Date Data Source [id number] 08/02/2019 08:50:00 AM EST [facility] ([facility]) Name Value Range Interpretation Code Description Data Hannah rce(s) Supporting Document(s) Glucose [Mass/volume] in Serum or Plasma 179 mg/dL 74-99 [facility] ([facility]) 100-125 mg/dL PRE-DIABETES/FASTING >126 mg/dL DIABETES/FASTING Urea nitrogen [Mass/volume] in Serum or Plasma 23 mg/dL 7-18 [facility] ([facility]) Creatinine 1.1 mg/dL 0.6-1.3 [facility] ([facility]) Potassium [Moles/volume] in Serum or Plasma 4.2 meq/L 3.5-5.1 [facility] ([facility]) Sodium [Moles/volume] in Serum or Plasma 139 meq/L 136-145 [facility] ([facility]) Chloride [Moles/volume] in Serum or Plasma 102 meq/L 98-107 [facility] ([facility]) Carbon dioxide, total [Moles/volume] in Serum or Plasma 29 meq/L 21 -32 [facility] ([facility]) Calcium [Mass/volume] in Serum or Plasma 8.5 mg/dL 8.5-10.1 [facility] ([facility]) Alkaline phosphatase isoenzyme [Units/volume] in Serum or Pl asma 92 mg/dL 46-116 [facility] ([facility]) Total Bilirubin 0.3 mg/dL 0.2-1.0 [facility] ([facility]) Aspartate aminotransferase [Enzymatic activity/volume] in Serum or Plasma 13 U/L 15-37 [facility] ([facility] ) Alanine aminotransferase [Enzymatic activity/volume] in Seru m or Plasma 27 U/L 12-78 [facility] ([facility]) A/G Ratio 1.16 CALC 1.00-1.90 [facility]) Albumin [Mass/volume] in Serum or Plasma 3.6 g/dL 3.4-5.0 [facility] ([facility]) Proteinase 3 Ab [Units/volume] in Serum 6.7 g/dL 6.4-8.2 [facility] ([facility]) Glomerular filtration rate/1.73 sq M pre dicted among blacks [Volume Rate/Area] in Serum or Plasma by Creatinine-based formula (MDRD) Laboratory test result [facility] ([facility]) <content>CHRONIC KIDNEY DISEASE STAGING PER NKF</content>
<content></content>
<content>STAGE I & II GFR >= 60 NORMAL TO MILDLY DECREASED</content>
<content>STAGE III GFR 30-59 MODERATELY DECREASED</content>
<content>STAGE IV GFR 15-29 SEVERELY DECREASED</content>
<content>STAGE V GFR <15 VERY LITTLE GFR LEFT</content>
<content>ESRD GFR <15 ON PRESS DEPARTMENT MANAGER</content>
<content></content> Glomerular filtration rate/1.73 sq M pre dicted among non-blacks [Volume Rate/Area] in Serum or Plasma by Creatinine-based formula (MDRD) Laboratory test result [facility] ) ID Date Data Source [id number] 08/02/2019 08:50:00 AM [facility]) Name Value Range Interpretation Code Description Data Hannah rce(s) Supporting Document(s) Hemoglobin A1c/Hemoglobin.total in Blood 8.2 g/dL 4.8-5.6 [facility] ([facility]) Lab Result Notes: Pre-Diabetes 5.7 - 6.4 % Diabetes = or > 6.5% Glucose mean value [Mass/volume] in Blood Estimated fr om glycated hemoglobin 189 mg/dL 60-110 [facility] ([facility] ) ID Date Data Source [id number] 08/02/2019 08:50:00 AM EST [facility] ([facility]) Name Value Range Interpretation Code Description Data Hannah rce(s) Supporting Document(s) Leukocytes [#/volume] in Blood by Automated count 9.2 x10*3/UL 4.1-10 .9 [facility] Erythrocytes [#/volume] in Blood by Automated count 5.05 x10*6/UL 4.2 0-6.30 [facility] Hematocrit [Volume Fraction] of Blood by Automated count 45.2 % 3 7.0-51.0 [facility] Hemoglobin [Mass/volume] in Blood 15.3 g/dL 12.0-18.0 [facility] MCV 89.6 fL 80.0-97.0 [facility] ([facility]) Erythrocyte distribution width [Ratio] by Automated count 13.0 % 11.6-13.7 [facility] MCH 30.4 pg 26.0-32.0 [facility] ([facility]) MCHC 33.9 g/dL 31.0-38.0 [facility]) Lymph % 21.3 % 10.0-58.5 [facility] MPV 8.2 FL 7.8-11.0 [facility] Platelets [#/volume] in Blood by Automated count 296 x10*3/UL 140-440 [facility] ([facility]) Mid % 5.2 % 1.7-9.3 [facility] Neut % 73.5 % 37.0-92.0 [facility] Lymph # 1.9 x10*3/UL 0.6-4.1 [facility] ([facility]) Mid # 0.6 x10*3/UL 0.1-0.6 [facility] ([facility]) Neut # 6.7 x10*3/UL 2.0-7.8 [facility] ([facility]) Procedure Social History Code Duration Value Status Description Data Source(s ) Smoking 06/25/2020 12:00:00 AM EST Patient is a former smoker completed Patient is a former smoker [facility] ([facility], ) Vital Signs ID Date Data Source UNK Name Value Range Interpretation Code Description Data Source(s) Body mass index (BMI) [Ratio] 37.1 kg/m2 37.1 k g/m2 [facility] ([facility]) Oxygen saturation in Arterial blood by Pulse oximetry --post exerci se 87 % 87 % [facility] ([facility]) Oxygen saturation in Arterial blood by Pulse oximetry 91 % 91 % [facility]) Body weight 251.00 [lb_av] 251.00 [lb_av] [facility]) Body height 69.0 [in_i] 69.0 [in_i] [facility] ([facility]) 5'9" Heart rate 88 /min 88 /min [facility] ([facility]) Diastolic blood pressure 78 mm[Hg] 78 mm[Hg] [facility]) Systolic blood pressure 130 mm[Hg] 130 mm[Hg] M FRANC[facility]CA ([facility]) Body surface area Derived from formula 2.31 m2 2.31 m2 [facility] (Health system) Body weight 115.668 kg 115.668 kg [facility] ([facility]) [place] body weight 166 [lb_av] 166 [lb_av] [facility] T (Health system) Body mass index (BMI) [Ratio] 36.6 kg/m2 36.6 k g/m2 [facility] (Health system) Body weight 255.00 [lb_av] 255.00 [lb_av] [facility] (Health system) Body height 70 [in_i] 70 [in_i] [facility] ([facility]) 5'10" Oxygen saturation in Arterial blood by Pulse oximetry 95 % 95 % [facility] (Health system) Heart rate 93 /min 93 /min [facility] ([facility]) Diastolic blood pressure 90 mm[Hg] 90 mm[Hg] [facility] (Health system) Systolic blood pressure 142 mm[Hg] 142 mm[Hg] [facility] (Health system) Body mass index (BMI) [Ratio] 37.9 kg/m2 37.9 k g/m2 [facility] Oxygen saturation in Arterial blood by Pulse oximetry 90 % 90 % [facility] ([facility]) Body weight 257.00 [lb_av] 257.00 [lb_av] [facility] ([facility]) Body height 69.0 [in_i] 69.0 [in_i] [facility] ([facility]) 5'9" Heart rate 88 /min 88 /min [facility] ([facility]) Diastolic blood pressure 84 mm[Hg] 84 mm[Hg] [facility] Systolic blood pressure 136 mm[Hg] 136 mm[Hg] [facility] ([facility]) Body surface area Derived from formula 2.29 m2 2.29 m2 [facility] (Health system) Body weight 113.400 kg 113.400 kg [facility] ([facility]) [place] body weight 166 [lb_av] 166 [lb_av] [facility] (Health system) Body mass index (BMI) [Ratio] 35.9 kg/m2 35.9 k g/m2 [facility] (Health system) Body weight 250.00 [lb_av] 250.00 [lb_av] [facility] (Health system) Body height 70 [in_i] 70 [in_i] [facility] ([facility]) 5'10" Diastolic blood pressure 60 mm[Hg] 60 mm[Hg] [facility] (Health system) Systolic blood pressure 139 mm[Hg] 139 mm[Hg] [facility] (Health system) Body weight 112.493 kg 112.493 kg [facility] ([facility]) [place] body weight 166 [lb_av] 166 [lb_av] [facility] (Health system) Body mass index (BMI) [Ratio] 35.6 kg/m2 35.6 k g/m2 [facility] (Health system) Body weight 248.00 [lb_av] 248.00 [lb_av] [facility] (Health system) Body height 70 [in_i] 70 [in_i] [facility] ([facility]) 5'10" Body temperature 96.8 [degF] 96.8 [degF] [facility] (Health system) Oxygen saturation in Arterial blood by Pulse oximetry 94 % 94 % [facility] (Health system) Heart rate 79 /min 79 /min [facility] ([facility]) Diastolic blood pressure 88 mm[Hg] 88 mm[Hg] [facility] (Health system) Systolic blood pressure 128 mm[Hg] 128 mm[Hg] [facility] (Health system) Systolic blood pressure 92 mm[Hg] 92 mm[Hg] [facility] ([facility]) Body mass index (BMI) [Ratio] 38.1 kg/m2 38.1 k g/m2 [facility] ([facility]) Oxygen saturation in Arterial blood by Pulse oximetry 92 % 92 % [facility] ([facility]) Body weight 258.00 [lb_av] 258.00 [lb_av] [facility] ([facility]) Body height 69.0 [in_i] 69.0 [in_i] [facility] ([facility]) 5'9" Heart rate 80 /min 80 /min [facility] ([facility]) Diastolic blood pressure 78 mm[Hg] 78 mm[Hg] [facility] ([facility]) Body weight 114.761 kg 114.761 kg [facility] ([facility]) Body mass index (BMI) [Ratio] 36.3 kg/m2 36.3 k g/m2 [facility] Body weight 253.00 [lb_av] 253.00 [lb_av] [facility] (Health system) Body height 70 [in_i] 70 [in_i] [facility] ([facility]) 5'10" Body weight 251.00 [lb_av] 251.00 [lb_av] [facility] ([facility]) Body height 69.0 [in_i] 69.0 [in_i] [facility] ([facility]) 5'9" Heart rate 76 /min 76 /min [facility] Diastolic blood pressure 80 mm[Hg] 80 mm[Hg] [facility] ([facility]) Systolic blood pressure 136 mm[Hg] 136 mm[Hg] [facility] ([facility]) Body mass index (BMI) [Ratio] 37.1 kg/m2 37.1 k g/m2 [facility] ([facility]) Body weight 114.761 kg 114.761 kg [facility] ([facility]) Body mass index (BMI) [Ratio] 36.3 kg/m2 36.3 k g/m2 [facility] Body weight 253.00 [lb_av] 253.00 [lb_av] [facility] (Health system) Body height 70 [in_i] 70 [in_i] [facility] ([facility]) 5'10" Body weight 114.761 kg 114.761 kg [facility] ([facility]) Body mass index (BMI) [Ratio] 36.3 kg/m2 36.3 k g/m2 [facility] (Health system) Body weight 253.00 [lb_av] 253.00 [lb_av] [facility] (Health system) Body height 70 [in_i] 70 [in_i] [facility] ([facility]) 5'10" Body weight 114.761 kg 114.761 kg [facility] ([facility]) Body mass index (BMI) [Ratio] 36.3 kg/m2 36.3 k g/m2 [facility] Body weight 253.00 [lb_av] 253.00 [lb_av] [facility] (Health system) Body height 70 [in_i] 70 [in_i] [facility] ([facility]) 5'10" Body weight 114.761 kg 114.761 kg [facility] ([facility]) Body mass index (BMI) [Ratio] 36.3 kg/m2 36.3 k g/m2 [facility] Body weight 253.00 [lb_av] 253.00 [lb_av] [facility] (Health system) Body height 70 [in_i] 70 [in_i] [facility] ([facility]) 5'10" Body mass index (BMI) [Ratio] 38.2 kg/m2 38.2 k g/m2 [facility] ([facility]) Oxygen saturation in Arterial blood by Pulse oximetry 95 % 95 % [facility] RM Air Body weight 259.00 [lb_av] 259.00 [lb_av] [facility] ([facility]) Body height 69.0 [in_i] 69.0 [in_i] [facility] ([facility]) 5'9" Body temperature 97.6 [degF] 97.6 [degF] [facility] ([facility]) Oral Heart rate 100 /min 100 /min [facility] ([facility]) Diastolic blood pressure 82 mm[Hg] 82 mm[Hg] [facility] ([facility]) RT Arm Systolic blood pressure 138 mm[Hg] 138 mm[Hg] [facility] ([facility]) RT Arm Body mass index (BMI) [Ratio] 38.1 kg/m2 38.1 k g/m2 [facility] ([facility]) Body weight 258.00 [lb_av] 258.00 [lb_av] [facility] ([facility]) Body height 69 [in_i] 69 [in_i] [facility] ([facility]) 5'9" Respiratory rate 12 /min 12 /min [facility] ( [facility]) Body mass index (BMI) [Ratio] 40.0 kg/m2 40.0 k g/m2 [facility] ([facility]) Body weight 271.00 [lb_av] 271.00 [lb_av] [facility] ([facility]) Body height 69.0 [in_i] 69.0 [in_i] [facility] ([facility]) 5'9" Heart rate 70 /min 70 /min [facility] ([facility]) Diastolic blood pressure 76 mm[Hg] 76 mm[Hg] [facility] ([facility]) Systolic blood pressure 138 mm[Hg] 138 mm[Hg] [facility] ([facility]) Body mass index (BMI) [Ratio] 38.1 kg/m2 38.1 k g/m2 [facility] ([facility]) Body weight 258.00 [lb_av] 258.00 [lb_av] [facility] ([facility]) Body height 69 [in_i] 69 [in_i] [facility] ([facility]) 5'9" Respiratory rate 12 /min 12 /min [facility] ( [facility]) Heart rate 72 /min 72 /min [facility] ([facility]) Diastolic blood pressure 88 mm[Hg] 88 mm[Hg] [facility] ([facility]) Systolic blood pressure 124 mm[Hg] 124 mm[Hg] [facility] ([facility], ) Diastolic blood pressure--sitting 72 mm[Hg] 72 mm[Hg] [facility] ([facility]) large cuff, Ra Systolic blood pressure--sitting 122 mm[Hg] 122 mm[Hg] [facility] ([facility]) large cuff, Ra Heart rate 66 /min 66 /min [facility] ([facility] Body mass index (BMI) [Ratio] 38.4 kg/m2 38.4 k g/m2 [facility] ([facility]) Body height 70 [in_i] 70 [in_i] [facility] 5'10" Body weight 268.00 [lb_av] 268.00 [lb_av] DEM[facility] Schultz ([facility])
[2020-09-03] MEDS ORDERED: IPRATROPIUM 0.5MG/ALBUTEROL 2.5MG INH SOL UD 3ML (DUONEB) NEB PRN (04:00)
[2020-09-03] MEDS ORDERED: DULO1CAP5 PO (04:05)
[2020-09-03] MEDS ORDERED: MUCI600T31 PO (04:05)
[2020-09-03] MEDS ORDERED: GLIM2TAB29 PO (04:05)
[2020-09-03] MEDS ORDERED: methylPREDNISolone 125MG 2ML VIAL IV ONE ×2 (04:15→04:30)
[2020-09-03] MEDS ORDERED: DEXTROSE 50% 50 ML SYRINGE IV PRN (04:45)
[2020-09-03] MEDS ORDERED: GLUCAGON INJ 1MG VIAL SC PRN (04:45)
[2020-09-03] MEDS ORDERED: GLUCOSE 4GM CHEW TABLET PO PRN (04:45)
--- OUTSIDE RECORDS SUMMARY | 2020-09-03 04:54 | CCD ---
Author Author [facility] Organization [facility] Address Unknown Phone Unavailable Care Team Providers Care Renewable Energy Engineer Name Role Phone Dany, Brittnee HINGING MACHINE OPERATOR Unavailable Unavailable Dany, Brittnee HINGING MACHINE OPERATOR Unavailable Unavailable Dany, Brittnee HINGING MACHINE OPERATOR Unavailable Unavailable Dany, Brittnee HINGING MACHINE OPERATOR Unavailable Unavailable Dany, Brittnee HINGING MACHINE OPERATOR Unavailable Unavailable Dany, Brittnee HINGING MACHINE OPERATOR Unavailable Unavailable Dany, Brittnee HINGING MACHINE OPERATOR Unavailable Unavailable Dany, Brittnee HINGING MACHINE OPERATOR Unavailable Unavailable Dany, Brittnee HINGING MACHINE OPERATOR Unavailable Unavailable Dany, Brittnee HINGING MACHINE OPERATOR Unavailable Unavailable Dany, Brittnee HINGING MACHINE OPERATOR Unavailable Unavailable Dany, Brittnee HINGING MACHINE OPERATOR Unavailable Unavailable Dany, Brittnee HINGING MACHINE OPERATOR Unavailable Unavailable Dany, Brittnee HINGING MACHINE OPERATOR Unavailable Unavailable Dany, Brittnee HINGING MACHINE OPERATOR Unavailable Unavailable Dany, Brittnee HINGING MACHINE OPERATOR Unavailable Unavailable Dany, Brittnee HINGING MACHINE OPERATOR Unavailable Unavailable Dany, Brittnee HINGING MACHINE OPERATOR Unavailable Unavailable Dany, Brittnee HINGING MACHINE OPERATOR Unavailable Unavailable Dany, Brittnee HINGING MACHINE OPERATOR Unavailable Unavailable Dany, Brittnee HINGING MACHINE OPERATOR Unavailable Unavailable Dany, Brittnee HINGING MACHINE OPERATOR Unavailable Unavailable Dany, Brittnee HINGING MACHINE OPERATOR Unavailable Unavailable Dany, Brittnee HINGING MACHINE OPERATOR Unavailable Unavailable Dany, Brittnee HINGING MACHINE OPERATOR Unavailable Unavailable Dany, Brittnee HINGING MACHINE OPERATOR Unavailable Unavailable Dany, Brittnee HINGING MACHINE OPERATOR Unavailable Unavailable Kaveh, L Jena PA Unavailable [...] F Chas ALEJANDRE Unavailable Unavailable Aspen F Chsa ALEJANDRE Unavailable Unavailable Aspen F Chas ALEJANDRE [...] Unavailable Unavailable Zana Tracy MD Unavailable Unavailable JacksonvilleZana MD Unavailable Unavailable [place], Zana ALEJANDRE Unavailable Unavailable [place], Zana ALEJANDRE Unavailable Unavailable [place], Zana ALEJANDRE Unavailable Unavailable [place], Zana MD Unavailable Unavailable [place], Zana MD Unavailable Unavailable [place], Zana ALEJANDRE Unavailable Unavailable [place], Zana MD Unavailable Unavailable [place], Zana MD Unavailable Unavailable [place], Zana MD Unavailable Unavailable [place], Zana ALEJANDRE Unavailable Unavailable [place], Zana ALEJANDRE Unavailable Unavailable [place], Zana ALEJANDRE Unavailable Unavailable [place], Zana ALEJANDRE Unavailable Unavailable [place], Zana ALEJANDRE Unavailable Unavailable [place], Zana ALEJANDRE Unavailable Unavailable [place], Zana ALEJANDRE Unavailable Unavailable [place], Zana ALEJANDRE Unavailable Unavailable [place] MD Unavailable Unavailable [place] MD Unavailable Unavailable REINDL, GENIE ALEJANDRE Unavailable [...] Unavailable REINDL, GENIE ALEJANDRE Unavailable Unavailable REINDL, GNEIE ALEJANDRE Unavailable Unavailable REINDL, GENIE ALEJANDRE Unavailable [...] is protected by Article 27-F of the [facility] [place] Public Health law. If you continue you may have access to information: Regarding HIV / AIDS; Provided by facilities licensed or operated by the [facility] [place] Office of Mental Health; or Provided by the [facility] [place] Office for People With Developmental Disabilities. If such information is present, then the following [facility] [place] mandated warning applies: This information has been [...] law may result in a fine or custodial sentence or both. A general authorization for the release of medical or other information is NOT sufficient authorization for further disc losure. Family History Family Member Name Family Member Gender Family Member Status Date o f Status Description Data Source(s) Unknown Unknown Problem [facility] (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 Encounters Encounter Providers Location Date Indications Data Source(s ) Outpatient Attender: Genie Bashir/Demarcus/Tom/Kel hosea 06/25/2020 07:30:00 AM EST [facility] ([facility]) Office Visit Attender: Chas Zuleta 06/12 08:30:00 AM EST [facility] ([facility] ) Outpatient Attender: GENIE Murphy/Tom/Rein dl 05/15/2020 02:15:00 PM EDT [facility] ([facility]) Outpatient Attender: Genie Esposito/Tom/Kel ndl 04/10/2020 09:30:00 AM EDT [facility] ([facility]) Outpatient Attender: Zana Murphy/Tom/Reind l 02/14/2020 02:10:00 PM EDT MED[facility] ([facility]) Outpatient Attender: Chas Zuleta 02/06 11:30:00 AM EDT MED[facility] ([facility] ) Outpatient Attender: Zana Murphy/Tom/Luciusd l 12/13/2019 01:25:00 PM EDT MED[facility] ([facility] Outpatient Attender: Chas Zuleta 11/28 02:00:00 PM EDT MEDENT ([facility] ) Outpatient Attender: Zana Cisse/Demarcus/Tom/Reind l 11/20/2019 10:00:00 AM EDT MED[facility] ([facility], ) Outpatient Attender: Zana Cisse/Demarcus/Tom/Lucisud james 11/17/2019 09:50:00 AM EDT MED[facility] ([facility], ) Outpatient Attender: Brittnee Zuleta 09:00:00 AM EDT MEDENT ([facility] ) Outpatient Attender: Justice Patton MD Main office - [facility] 10/24/2019 11:15:00 AM EDT MEDENT ([facility], ) Outpatient Attender: Justice Patton MD Main office - [facility] 07/25/2019 01:00:00 PM EST MED[facility] ([facility], ) Outpatient Attender: Jena OLGUIN Main Office 07/14/2019 08:15:0 0 AM EST [facility] ([facility]) Immunizations Vaccine Date Status Description Data Source(s) New in 2011. IIV4 05/20/2020 07:43:00 AM EST completed MEDENT ([facility], ) This CVX code allows reporting of a vacc ination when formulation is unknown (for example, when recording a Influenza vaccination when noted on a vaccination card) 04/10/2020 12:24:00 PM EDT completed MEDEN T ([facility]) INFLUENZA VIRUS VACCINE QUADRIVALENT 2020-21 (6 [...] TABLET BY MOUTH EVERY DAY SOLD: 08/14/2020 [facility] 0.5 % 07/18/2020 12:00:00 AM EST cream 45 APPLY TO AFFECTED AREA(S) TWO TIMES A DAY DIRECTED DO NOT OVERUSE RISK OF ATROPHY APPLY TO AFFECTED AREA(S) TWO TIMES A DAY DIRECTED DO NOT OVERUSE RISK OF ATROPHY SOLD: 07/23/2020 [facility] Triamcinolone Acetonide 5 MG/ML Topical Cream Triamcinolone Acetonide 07/17/2020 12:00:00 AM EST active M [facility] Ciprofloxacin 500 MG Oral Tablet Ciprofloxacin HCL 07/09/2020 12:00 :00 AM EST ORAL active MED[facility] ([facility], ) 500 mg 07/09/2020 12:00:00 AM EST tablet 20 TAKE ONE TABLET BY MOUTH TWICE A DAY TAKE ONE TABLET BY MOUTH TWICE A DAY SOLD: 07/09/2020 [facility] Albuterol 0.833 MG/ML / Ipratropium Linton 0.167 MG/M L Inhalant Solution Ipratropium [place]/Albuterol Sulfate 07/08/2020 12:00:00 AM EST active MEDENT ([facility], ) 10 mg 07/08/2020 12:00:00 AM EST [...] FOR 5 DAYS THEN STOP SOLD: 07/09/2020 [facility] Prednisone 10 MG Oral Tablet Prednisone 07/08/2020 12:00:00 AM EST ORAL active MEDENT ([facility], ) atorvastatin 10 MG Oral Tablet ATORVASTATIN CALCIUM 07/05/2020 1 2:00:00 AM EST tablet 30 TAKE ONE TABLET BY MOUTH EVERY D AY TAKE ONE TABLET BY MOUTH EVERY DAY SOLD: 07/06/2020 [facility] 100,000 unit/mL 06/27/2020 12:00:00 AM EST suspension 200 TAKE 4ML BY MOUTH SWISH AND SWALLOW FOUR TIMES A DAY FOR 10 DAYS TAKE 4ML BY MOUTH SWISH AND SWALLOW FOUR TIMES A DAY FOR 10 DAYS SOLD: 06/29/2020 [facility] Nystatin 641123 UNT/ML Oral Suspension Nystatin 06/27/2020 12:00:00 AM EST ORAL active MEDENT ([facility], ) Spiriva Respimat Spiriva Respimat 06/25/2020 12:00:00 AM EST RESPIRATORY active MED[facility] ([facility], ) 20 mg 06/12/2020 12:00:00 AM [...] Prednisone 06/12/2020 12:00:00 AM EST active MED[facility] ([facility]) Azithromycin 250 MG Oral Tablet Azithromycin 06/12/2020 12:00:00 AM EST active MEDENT ([facility]) 160-4.5 mcg/actuation 06/03/2020 12:00:00 AM EST [...] 05/15/2020 12:00:00 AM EDT ORAL active MED[facility] ([facility]) 30 mg 03/27/2020 12:00:00 AM [...] EDT strip 200 TEST TWICE DAILY TO [facility] BLOOD SUGAR TEST TWICE DAILY TO [facility] BLOOD SUGAR SOLD: 03/30/2020 [facility] [...] 2:00:00 AM EDT ORAL active MEDENT ( [facility]) Acetaminophen 325 MG / Hydrocodone Bitartrate 5 MG Oral Tabl et [Lula] Lula 11/24/2019 12:00:00 AM EDT completed MED[facility] ([facility], ) Dexamethasone 1 MG/ML / Tobramycin 3 MG/ML Ophthalmic Suspension [Tobradex] Tobradex 11/24/2019 12:00:00 AM EDT AURICULAR completed MED[facility] ([facility], ) Levofloxacin 750 MG Oral Tablet [Levaquin] Levaquin 11/16 12:00:00 AM EDT ORAL completed [facility] ([facility], ) Acetaminophen 325 MG / Oxycodone Hydrochloride 5 MG Or al Tablet Oxycodone-Acetaminophen 11/17/2019 12:00:00 AM EDT active MED[facility] ([facility]) 750 mg 11/17/2019 12:00:00 AM EDT tablet 5 TAKE ONE TABLET BY MOUTH EVERY DAY TAKE ONE TABLET BY MOUTH EVERY DAY SOLD: 11/17/2019 [facility] tramadol hydrochloride 50 MG Oral Tablet Tramadol HCL 11/15/2019 12:00:00 AM EDT ORAL active MED[facility] ([facility]) Azithromycin 250 MG Oral Tablet Azithromycin 11/15/2019 12:00:00 AM EDT completed [facility] ([facility]) Ciprofloxacin 3 MG/ML / Dexamethasone 1 MG/ML Otic Joanne pension [Ciprodex] Ciprodex 11/15/2019 12:00:00 AM EDT AURICULAR completed MED[facility] ([facility]) 20 mg 07/29/2019 12:00:00 AM EST [...] 07/25/2019 12:00:00 AM EST ORAL active MEDENT ([facility] ) duloxetine 30 MG Delayed Release Oral Capsule Duloxetine HCL 07/13/2019 12:00:00 AM EST ORAL active [facility] ([facility]) duloxetine 30 MG Delayed Release Oral Capsule Duloxetine HCL 05/03/2019 12:00:00 AM EDT ORAL completed [facility] ([facility] 12 HR Carbamazepine 100 MG Extended Release Oral Capsule Car bamazepine ER 05/02/2019 12:00:00 AM EDT ORAL completed MEDENT ([facility] ) Insurance Providers Payer name Policy type / Coverage type Policy ID Covered green party ID Covered green party's relationship to cobb Policy [place] Plan Information AETNA MEDICARE [id number] SP MEBTN [id number] AETNA MEDICARE [id number] SP MEBTN K6Y AETNA MEDICARE O [id number] S MEBTN K6Y MEDICARE [id number] SP [id number] AETNA MEDICARE [id number] SP MEBTN [id number] WELLCARE [id number] SP [id number] WELLCARE O [id number] S [id number] WELLCARE [id number] SP [id number] WELLCARE [id number] SP [id number] [place] [place] Commercial [id number] Self [id number] Wellcare Commercial [id number] Self [id number] MVP Medicaid Commercial [id number] Self [id number] SELF PAY ONLY SP MVP MCDHMO [id number] SP [id number] [employer] [place] Commercial [id number] Self [id number] MVP Health Maintenance Organization (HMO) [id number] Self [id number] MVP Medicaid Commercial [id number] Self [id number] MVP Healthcare Commercial [id number] Self [id number] MVP HEALTH CARE O [id number] S [id number] MVP MCDHMO [id number] SP [id number] MVP MCDHMO [id number] SP [id number] MVP MCDHMO [id number] MEDICAID [id number] SP [id number] MEDICAID [id number] SP [id number] MVP Healthcare Commercial MVPM Self MVPM MVP MCDHMO [id number] SP [id number] [facility] PHY [id number] SP [id number] [facility] PHY [id number] SP [id number] [place] P[place] 302/307 [id number] SP [id number] MVP HEALTH CARE P [id number] S [id number] MVP HEALTH CARE P [id number] S [id number] P UNAVAILABLE UNAVAILA BLE EXCELLUS BCBS P [id number] S VYS [id number] [place] PPO 302/307 [id number] SP [id number] [facility] PHY [id number] SP [id number] STATE INSURANCE FUND [id number] SP [id number] BCBS [place] [id number] SP [id number] BCBS [place] [facility] 303/803 [id number] SP [id number] BCBS [place]IRE [facility] 303/803 [id number] SP [id number] BCBS [place] [id number] SP [id number] [facility] [id number] SP [id number] [place] [place] [id number] [place] [id number] Problems, Conditions, and Diagnoses Code Display Name Description Problem Type Effective Dates Data Source(s) 0158718 Ex-smoker Ex-smoker Problem 04/10/2020 12:00:00 AM ED T MEDENT ([facility], ) [id number] Panacinar emphysema Panacinar emphysema Problem 0 04/10/2020 12:00:00 AM EDT MEDENT ([facility]) [id number] Chronic obstructive lung disease Chronic obstruc tive lung disease Problem 04/10/2020 12:00:00 AM EDT MEDENT ([facility]) [id number] Aortic valve disorder Aortic valve disorder Problem 07/14/2019 12:00:00 AM EST MED[facility] ([facility]) Surgeries/Procedures Procedure Description Date Indications Data Source(s) Endoscopy Upper GI Complex Diagnostic 06/27/2020 12:00 :00 AM EST MEDENT ([facility], ) Dilate Esophagus Unguided Sound Or Bougie 06/27/2020 1 2:00:00 AM EST MED[facility] ([facility], ) Spirometry 06/25/2020 12:00:00 AM EST M EDENT ([facility]) Spirometry 04/10/2020 12:00:00 AM EDT M EDENT ([facility], ) Binocular Microscopy 11/27/2019 12:00:00 AM EDT MEDENT ([facility], ) Binocular Microscopy 11/24/2019 12:00:00 AM EDT MED[facility] ([facility], ) Binocular Microscopy 11/17/2019 12:00:00 AM EDT MED[facility] ([facility]) ECHO TTHRC R-T 2D W/WOM-MODE COMPL SPEC&COLR DOP 07/06 12:00:00 AM EST MED[facility] ([facility]) Results ID Date Data Source [id number] 08/13/2020 06:30:00 AM EST MED[facility] ([facility]) Name Value Range Interpretation Code Description Data Hannah rce(s) Supporting Document(s) ABG pH (Arterial) 7.394 units 7.350-7.450 MEDENT ( [facility]) ABG Total Co2 27.8 meq/L 23.0-31.0 MEDENT ([facility]) ABG Partial Pressure O2 175.6 mmHg 75.0-100.0 MEDE NT ([facility]) ABG Partial Pressure Co2 44.2 mmHg 35.0-45.0 MEDEN T ([facility]) ABG Hco3 26.4 meq/L 22.0-26.0 [facility] ABG Base Excess 1.1 MED[facility] ([facility]) ABG Standard Hco3 25.5 meq/L 22.0-26.0 MED[facility] ([facility]) ABG O2 Saturation 99.5 % 95.0-99.0 MED[facility] ([facility]) ID Date Data Source [id number] 08/13/2020 05:39:00 AM EST MEDENT ([facility]) Name Value Range Interpretation Code Description Data Hannah rce(s) Supporting Document(s) Respiratory Panel Laboratory test result MEDENT ([facility]) This respiratory PCR panel detects Influ [...] - SARS-CoV-2 (COVID19) ID Date Data Source [id number] 08/13/2020 05:39:00 AM EST MED[facility] ([facility]) Name Value Range Interpretation Code Description Data Hannah rce(s) Supporting Document(s) Glucose, Fasting 237 mg/dL 70-100 MED[facility] ([facility]) Creatinine For GFR 1.00 mg/dL 0.70-1.30 MED[facility] ([facility]) Blood Urea Nitrogen 14 mg/dL 7-18 MED[facility] ([facility]) Sodium Level 137 meq/L 136-145 MED[facility] ([facility]) Glomerular Filtration Rate Laboratory test result [facility] <content>Units are mL/min/1.73 m2</content>
<content></content>
<content>Chronic Kidney Disease Staging per NKF:</content>
<content></content>
<content>Stage I & II GFR >=60 Normal to Mildly Decreased</content>
<content>Stage III GFR 30- 59 Moderately Decreased</content>
<content>Stage IV GFR 15-29 Severely Decreased</content>
<content>Stage V GFR <15 Very Little GFR Left</content>
<content>ESRD GFR <15 on DREDGE OPERATOR</content>
<content></content> Carbon Dioxide Level 31 meq/L 21-32 MEDENT ([facility]) Potassium Serum 4.5 meq/L 3.5-5.1 MED[facility] ([facility]) Chloride Level 101 meq/L 98-107 [facility] ([facility]) Anion Gap 5 meq/L 8-16 [facility] Calcium Level 9.0 mg/dL 8.8-10.2 MED[facility] ([facility]) ID Date Data Source [id number] 08/13/2020 05:39:00 AM EST MED[facility] ([facility]) Name Value Range Interpretation Code Description Data Hannah rce(s) Supporting Document(s) Ast/Sgot 16 U/L 7-37 [facility] Alkaline Phosphatase 118 U/L 45-117 [facility] ([facility]) Alt/SGPT 27 U/L 12-78 [facility] Bilirubin,Total 0.2 mg/dL 0.2-1.0 MED[facility] ([facility]) Total Protein 6.9 GM/DL 6.4-8.2 MED[facility] ([facility]) Bilirubin,Direct 0.1 mg/dL 0.0-0.2 [facility] ([facility]) Albumin 2.9 GM/DL 3.2-5.2 [facility] Albumin/Globulin Ratio 0.7 [facility] ([facility]) ID Date Data Source [id number] 08/13/2020 05:39:00 AM EST MED[facility] ([facility]) Name Value Range Interpretation Code Description Data Hannah rce(s) Supporting Document(s) White Blood Count 15.5 10 4.0-10.0 MED[facility] ([facility]) Hematocrit 44.0 % 42.0-52.0 [facility] Red Blood Count 5.00 10 4.30-6.10 [facility] ([facility]) Hemoglobin 13.8 g/dL 13.5-17.5 [facility] Mean Corpuscular Volume 88.0 fl 80.0-96.0 [facility] ([facility]) Mean Corpuscular Hemoglobin 27.6 pg 27.0-33.0 [place] [facility] ([facility]) Mean Corpuscular HGB Conc 31.4 g/dL 32.0-36.5 MEDE NT ([facility]) Neutrophils % 77.5 % 36.0-66.0 [facility] ([facility]) Platelet Count, Automated 464 10 150-450 MEDE NT ([facility]) Red Cell Distribution Width 13.6 % 11.5-14.5 [place] [facility] ([facility]) [place] % 7.0 % 0.0-5.0 [facility] Eos % 3.6 % 0.0-3.0 [facility] Lymph % 10.4 % 24.0-44.0 [facility] Immature Granulocyte % 1.0 % 0-3.0 [facility] ([facility]) Nucleated Red Blood Cell % 0.0 % 0-0 MED ENT ([facility]) Baso % 0.5 % 0.0-1.0 [facility] Lymph # 1.6 10 1.5-5.0 [facility] Neutrophils # 12.0 10 1.5-8.5 [facility] ([facility]) [place]aden # 1.1 10 0.0-0.8 [facility] Baso # 0.1 10 0.0-0.2 [facility] Eos # 0.6 10 0.0-0.5 [facility] ID Date Data Source [id number] 08/13/2020 05:39:00 AM EST [facility] Name Value Range Interpretation Code Description Data Hannah rce(s) Supporting Document(s) SARS-CoV-2 (COVID 19) NEGATIVE - SARS-CoV-2 (COVID19) [facility] This lab was ordered by [facility] a nd reported by [facility]. ID Date Data Source [id number] 06/25/2020 08:35:00 AM EST MED[facility] ([facility], ) Name Value Range Interpretation Code Description Data Hannah rce(s) Supporting Document(s) PDFReport Laboratory test result MEDENT ([facility], ) FVC-Pre 2.03 L MEDENT ([facility]) FVC-%Pred-Pre 44 L MED[facility] ([facility]) FVC-Pred 4.61 L MED[facility] ([facility]) Fev1-Pred 3.44 L MED[facility] ([facility]) FVC-LLN 3.67 L [facility] ([facility]) Fev1-Pre 0.86 L [facility] ([facility]) Fev6-Pred 4.37 L [facility] ([facility]) Fev1-%Pred-Pre 25 L MED[facility] ([facility], ) Fev1-LLN 2.65 L MED[facility] ([facility]) Fev6-LLN 3.46 L MED[facility] ([facility]) Fev6-%Pred-Pre 45 L MED[facility] ([facility]) Fev6-Pre 2.01 L MED[facility] ([facility]) Fda8pwn-Bmgd 75 % [facility] ([facility]) Oek0zqo-%Pred-Pre 56 % MED[facility] ([facility]) Lgv0der-Nrr 42 % [facility] ([facility]) Uzg1gbk-IRF 65 % [facility] ([facility]) Sps8wmf-Qlzs 95 % [facility] ([facility]) Qca1srz-Igc 99 % [facility] ([facility]) Zhe2brp-%Pred-Pre 103 % [facility] ([facility]) FEFMax-Pred 8.82 L/E/sec MED[facility] ([facility]) FEFMax-Pre 3.05 L/E/sec MED[facility] ([facility]) FEFMax-LLN 6.50 L/E/sec [facility] ([facility]) Jjr0833-Bkji 2.72 L/E/sec [facility]) FEFMax-%Pred-Pre 34 L/E/sec [facility] ([facility]) Jea4745-Cgw 0.36 L/E/sec MED[facility] ([facility]) Kym6423-TBI 1.12 L/E/sec MED[facility] ([facility]) Xzu1083-%Pred-Pre 13 L/E/sec MED[facility] ([facility]) ExpTime-Pre 6.44 sec MED[facility] ([facility]) Thm0wic5-Gauv 78 % [facility] ([facility]) Ymz1onj7-%Pred-Pre 54 % [facility] ([facility]) Cyo5ntr3-Kng 43 % [facility] ([facility]) Jlv8zyf3-IFW 69 % [facility] ([facility]) ID Date Data Source [id number] 06/22/2020 11:45:00 AM EST [facility] Name Value Range Interpretation Code Description Data Hannah rce(s) Supporting Document(s) SARS coronavirus 2 RNA [facility] This lab was ordered by [facility] and reported by [facility]. ID Date Data Source [id number] 06/12/2020 09:28:00 AM EST MED[facility] ([facility]) Name Value Range Interpretation Code Description Data Hannah rce(s) Supporting Document(s) Hemoglobin A1c/Hemoglobin.total in Blood 8.5 % [facility] ([facility]) Lab Result Notes: Pre-Diabetes 5.7 - 6.4 % Diabetes = or > 6.5% Glucose mean value [Mass/volume] in Blood Estimated fr om glycated hemoglobin 197 mg/dL 60-110 [facility] ([facility] ) ID Date Data Source [id number] 06/12/2020 09:28:00 AM EST MED[facility] ([facility]) Name Value Range Interpretation Code Description Data Hannah rce(s) Supporting Document(s) Glucose [Mass/volume] in Serum or Plasma 221 mg/dL 74-99 [facility] ([facility]) 100-125 mg/dL PRE-DIABETES/FASTING >126 mg/dL DIABETES/FASTING Urea nitrogen [Mass/volume] in Serum or Plasma 22 mg/dL 7-18 [facility] ([facility]) Creatinine 1.1 mg/dL 0.6-1.3 [facility] Potassium [Moles/volume] in Serum or Plasma 4.7 meq/L 3.5-5.1 [facility] ([facility]) Sodium [Moles/volume] in Serum or Plasma 140 meq/L 136-145 [facility] ([facility]) Chloride [Moles/volume] in Serum or Plasma 102 meq/L 98-107 [facility] ([facility]) Calcium [Mass/volume] in Serum or Plasma 9.2 mg/dL 8.5-10.1 [facility] ([facility]) Carbon dioxide, total [Moles/volume] in Serum or Plasma 30 meq/L 21 -32 MED[facility] ([facility]) Alkaline phosphatase isoenzyme [Units/volume] in Serum or Pl asma 120 mg/dL 46-116 [facility] ([facility]) Aspartate aminotransferase [Enzymatic activity/volume] in Serum or Plasma 13 U/L 15-37 [facility] ([facility] ) Total Bilirubin 0.5 mg/dL 0.2-1.0 [facility] ([facility]) Proteinase 3 Ab [Units/volume] in Serum 7.0 g/dL 6.4-8.2 [facility] ([facility]) Albumin [Mass/volume] in Serum or Plasma 3.6 g/dL 3.4-5.0 [facility] ([facility]) Alanine aminotransferase [Enzymatic activity/volume] in Seru m or Plasma 26 U/L 12-78 [facility] ([facility] Glomerular filtration rate/1.73 sq M pre dicted among non-blacks [Volume Rate/Area] in Serum or Plasma by Creatinine-based formula (MDRD) Laboratory test result [facility] ([facility] Glomerular filtration rate/1.73 sq M pre dicted among blacks [Volume Rate/Area] in Serum or Plasma by Creatinine-based formula (MDRD) Laboratory test result [facility]) <content>CHRONIC KIDNEY DISEASE STAGING PER NKF</content>
<content></content>
<content>STAGE I & II GFR >= 60 NORMAL TO MILDLY DECREASED</content>
<content>STAGE III GFR 30-59 MODERATELY DECREASED</content>
<content>STAGE IV GFR 15-29 SEVERELY DECREASED</content>
<content>STAGE V GFR <15 VERY LITTLE GFR LEFT</content>
<content>ESRD GFR <15 ON DREDGE OPERATOR</content>
<content></content> A/G Ratio 1.06 CALC 1.00-1.90 [facility]) ID Date Data Source [id number] 06/12/2020 09:28:00 AM EST [facility] ([facility]) Name Value Range Interpretation Code Description Data Hannah rce(s) Supporting Document(s) Hemoglobin A1c/Hemoglobin.total in Blood Laboratory test result [facility] ([facility]) ID Date Data Source [id number] 04/30/2020 12:03:00 PM EDT [facility] Name Value Range Interpretation Code Description Data Hannah rce(s) Supporting Document(s) Thyrotropin [Units/volume] in Serum or Plasma by Detec tion limit <= 0.05 mIU/L 1.240 uIU/ML 0.358-3.740 [facility] ([facility] ) Thyroperoxidase Ab [Units/volume] in Serum or Plasma 31.2 U/ML [facility] ([facility]) Triiodothyronine (T3) [Mass/volume] in Serum or Plasma 97.8 ng/dL 60.0-181.0 [facility] ([facility]) Thyroxine (T4) free [Mass/volume] in Serum or Plasma 1.09 ng/dL 0.76- 1.46 [facility] ([facility]) Thyroglobulin Ab [Units/volume] in Serum or Plasma Laboratory test re sult [facility] ([facility]) ID Date Data Source [id number] 04/30/2020 12:03:00 PM EDT [facility] Name Value Range Interpretation Code Description Data Hannah rce(s) Supporting Document(s) Blood Urea Nitrogen 20 mg/dL 7-18 [facility] ([facility]) Glucose, Fasting 188 mg/dL 70-100 [facility] ([facility]) Sodium Level 138 meq/L 136-145 [facility] ([facility]) Creatinine For GFR 1.02 mg/dL 0.70-1.30 [facility] Glomerular Filtration Rate Laboratory test result [facility] ([facility]) <content>Units are mL/min/1.73 m2</content>
<content></content>
<content>Chronic Kidney Disease Staging per NKF:</content>
<content></content>
<content>Stage I & II GFR >=60 Normal to Mildly Decreased</content>
<content>Stage III GFR 30- 59 Moderately Decreased</content>
<content>Stage IV GFR 15-29 Severely Decreased</content>
<content>Stage V GFR <15 Very Little GFR Left</content>
<content>ESRD GFR <15 on DREDGE OPERATOR</content>
<content></content> Potassium Serum 4.7 meq/L 3.5-5.1 [facility] ([facility]) Carbon Dioxide Level 25 meq/L 21-32 [facility] ([facility]) Chloride Level 106 meq/L 98-107 [facility] Anion Gap 7 meq/L 8-16 [facility]) Ast/Sgot 20 U/L 7-37 [facility] ([facility]) Calcium Level 9.5 mg/dL 8.8-10.2 [facility] ([facility]) Alt/SGPT 29 U/L 12-78 [facility] ([facility]) Alkaline Phosphatase 117 U/L 45-117 [facility] ([facility]) Bilirubin,Total 0.7 mg/dL 0.2-1.0 [facility] ([facility]) Total Protein 7.8 GM/DL 6.4-8.2 [facility] ([facility]) Albumin/Globulin Ratio 1.1 [facility] ([facility]) Albumin 4.0 GM/DL 3.2-5.2 [facility] ([facility]) ID Date Data Source [id number] 04/30/2020 12:03:00 PM EDT [facility] ([facility]) Name Value Range Interpretation Code Description Data Hannah rce(s) Supporting Document(s) Red Blood Count 5.45 10 4.30-6.10 [facility] ([facility]) Hemoglobin 16.1 g/dL 13.5-17.5 [facility] ([facility]) White Blood Count 11.9 10 4.0-10.0 [facility] ([facility]) Hematocrit 48.8 % 42.0-52.0 [facility] Mean Corpuscular Volume 89.5 fl 80.0-96.0 [facility] ([facility]) Mean Corpuscular Hemoglobin 29.5 pg 27.0-33.0 [facility] ([facility]) Platelet Count, Automated 360 10 150-450 [facility] ([facility]) Mean Corpuscular HGB Conc 33.0 g/dL 32.0-36.5 [facility] ([facility]) Red Cell Distribution Width 13.2 % 11.5-14.5 [facility] ([facility]) Neutrophils % 75.8 % 36.0-66.0 [facility]) Lymph % 14.3 % 24.0-44.0 [facility]) [place] % 6.8 % 0.0-5.0 [facility]) Immature Granulocyte % 0.4 % 0-3.0 [facility] ([facility]) Baso % 0.8 % 0.0-1.0 [facility]) Eos % 1.9 % 0.0-3.0 [facility]) Lymph # 1.7 10 1.5-5.0 [facility]) Neutrophils # 9.0 10 1.5-8.5 [facility] ([facility]) Nucleated Red Blood Cell % 0.0 % 0-0 [facility] ([facility]) Baso # 0.1 10 0.0-0.2 [facility]) [place] # 0.8 10 0.0-0.8 [facility]) Eos # 0.2 10 0.0-0.5 [facility]) ID Date Data Source [id number] 04/10/2020 09:29:00 AM EDT [facility] ([facility], ) Name Value Range Interpretation Code Description Data Hannah rce(s) Supporting Document(s) PDFReport Laboratory test result [facility] ([facility], ) FVC-Pred 4.61 L [facility] ([facility], ) FVC-%Pred-Pre 56 L [facility] ([facility], ) FVC-Pre 2.59 L [facility] ([facility], ) FVC-LLN 3.67 L [facility] ([facility]) Fev1-%Pred-Pre 30 L [facility] ([facility], ) Fev1-Pred 3.44 L [facility] ([facility], ) Fev1-Pre 1.05 L [facility] ([facility], ) Fev1-LLN 2.65 L [facility] ([facility], ) Fev6-Pre 2.58 L [facility] ([facility]) Fev6-Pred 4.37 L [facility] ([facility]) Qpw5vdb-Zqhq 75 % [facility] ([facility], ) Fev6-LLN 3.46 L [facility] ([facility], ) Fev6-%Pred-Pre 59 L [facility] ([facility], ) Sis7wsu-Bti 41 % [facility] ([facility]) Nzs6wya-%Pred-Pre 54 % [facility] ([facility]) Afc9nyx-Kfwt 95 % [facility] ([facility]) Pgh3wka-LBI 65 % [facility] ([facility]) Ger2dpb-%Pred-Pre 104 % [facility] ([facility]) Nke9jng-Feh 100 % [facility] ([facility]) FEFMax-Pre 4.38 L/E/sec [facility] ([facility], ) FEFMax-Pred 8.82 L/E/sec [facility] ([facility]) FEFMax-%Pred-Pre 49 L/E/sec [facility] ([facility]) Yoa0961-Nufz 2.72 L/E/sec [facility] ([facility]) FEFMax-LLN 6.50 L/E/sec [facility] ([facility]) Ydx3428-Dfb 0.46 L/E/sec [facility] ([facility]) Uwi7594-%Pred-Pre 16 L/E/sec [facility] ([facility]) Qdy6310-NLX 1.12 L/E/sec [facility] ([facility]) ExpTime-Pre 6.33 sec [facility] ([facility]) Ggs6uao9-Vepi 78 % [facility] ([facility]) Stv2sjx8-%Pred-Pre 52 % [facility] ([facility]) Wlo9ieb1-Pzu 41 % [facility] ([facility]) Fzu5fnn8-FOD 69 % [facility] ([facility]) ID Date Data Source [id number] 04/04/2020 11:03:00 AM EDT [facility] ([facility]) Name Value Range Interpretation Code Description Data Hannah rce(s) Supporting Document(s) Laboratory test finding (navigational concept) Laboratory test result [facility] ([facility]) ID Date Data Source [id number] 02/07/2020 12:20:00 PM EDT [facility] ([facility]) Name Value Range Interpretation Code Description Data Hannah rce(s) Supporting Document(s) Microalbumin Urine 9.8 mg/L 1.3-20.0 [facility] ([facility]) Urine Creatinine 173.7 mg/dL 30.0-125.0 [facility] ([facility]) Microalb/Creat Ratio 5.6 ug/mg 0.0-30.0 [facility] ([facility]) ID Date Data Source [id number] 02/06/2020 10:33:00 AM EDT [facility] ([facility]) Name Value Range Interpretation Code Description Data Hannah rce(s) Supporting Document(s) Prostate specific Ag [Mass/volume] in Serum or Plasma 0.61 ng/mL [facility] ([facility]) This assay was performed on the Siemens Dimension EXL using the B- Galactosidase/CPRG methodology and should not be compared interchangeably with other methods. The PSA should not be used alone as a screening test for the presence or absence of malignant disease. ID Date Data Source [id number] 02/06/2020 10:33:00 AM EDT [facility] ([facility]) Name Value Range Interpretation Code Description Data Hannah rce(s) Supporting Document(s) Triglyceride [Mass/volume] in Serum or Plasma 87 mg/dL 30-150 [facility] ([facility]) Cholesterol [Mass/volume] in Serum or Plasma 170 mg/dL 131-200 [facility] ([facility]) Cholesterol in LDL [Mass/volume] in Serum or Plasma by calcu lation 98 CALC 50-159 [facility] ([facility]) Cholesterol in HDL [Mass/volume] in Serum or Plasma 55 mg/dL 35-60 [facility] ([facility]) ID Date Data Source [id number] 02/06/2020 10:33:00 AM EDT [facility] ([facility]) Name Value Range Interpretation Code Description Data Hannah rce(s) Supporting Document(s) Glucose [Mass/volume] in Serum or Plasma 180 mg/dL 74-99 [facility] ([facility]) 100-125 mg/dL PRE-DIABETES/FASTING >126 mg/dL DIABETES/FASTING Urea nitrogen [Mass/volume] in Serum or Plasma 19 mg/dL 7-18 [facility] ([facility]) Sodium [Moles/volume] in Serum or Plasma 142 meq/L 136-145 [facility] ([facility]) Creatinine 1.1 mg/dL 0.6-1.3 [facility] Potassium [Moles/volume] in Serum or Plasma 4.8 meq/L 3.5-5.1 [facility] ([facility]) Carbon dioxide, total [Moles/volume] in Serum or Plasma 28 meq/L 21 -32 [facility] ([facility]) Chloride [Moles/volume] in Serum or Plasma 104 meq/L 98-107 [facility] ([facility]) Aspartate aminotransferase [Enzymatic activity/volume] in Serum or Plasma 14 U/L 15-37 [facility] ([facility] ) Alkaline phosphatase isoenzyme [Units/volume] in Serum or Pl asma 86 mg/dL 46-116 [facility] ([facility]) Calcium [Mass/volume] in Serum or Plasma 9.2 mg/dL 8.5-10.1 [facility] ([facility]) Total Bilirubin 0.5 mg/dL 0.2-1.0 [facility] ([facility]) Proteinase 3 Ab [Units/volume] in Serum 7.2 g/dL 6.4-8.2 [facility] ([facility]) Albumin [Mass/volume] in Serum or Plasma 3.7 g/dL 3.4-5.0 [facility] ([facility]) Alanine aminotransferase [Enzymatic activity/volume] in Seru m or Plasma 29 U/L 12-78 [facility] ([facility]) A/G Ratio 1.06 CALC 1.00-1.90 [facility] Glomerular filtration rate/1.73 sq M pre dicted among non-blacks [Volume Rate/Area] in Serum or Plasma by Creatinine-based formula (MDRD) Laboratory test result [facility] ([facility] Glomerular filtration rate/1.73 sq M pre dicted among blacks [Volume Rate/Area] in Serum or Plasma by Creatinine-based formula (MDRD) Laboratory test result [facility] ([facility]) <content>CHRONIC KIDNEY DISEASE STAGING PER NKF</content>
<content></content>
<content>STAGE I & II GFR >= 60 NORMAL TO MILDLY DECREASED</content>
<content>STAGE III GFR 30-59 MODERATELY DECREASED</content>
<content>STAGE IV GFR 15-29 SEVERELY DECREASED</content>
<content>STAGE V GFR <15 VERY LITTLE GFR LEFT</content>
<content>ESRD GFR <15 ON DREDGE OPERATOR</content>
<content></content> ID Date Data Source [id number] 02/06/2020 10:33:00 AM EDT [facility] ([facility]) Name Value Range Interpretation Code Description Data Hannah rce(s) Supporting Document(s) Glucose mean value [Mass/volume] in Blood Estimated fr om glycated hemoglobin 174 mg/dL 60-110 [facility] ([facility] ) Hemoglobin A1c/Hemoglobin.total in Blood 7.7 g/dL 4.8-5.6 [facility] ([facility]) Lab Result Notes: Pre-Diabetes 5.7 - 6.4 % Diabetes = or > 6.5% ID Date Data Source [id number] 02/06/2020 10:33:00 AM EDT [facility] ([facility]) Name Value Range Interpretation Code Description Data Hannah rce(s) Supporting Document(s) Leukocytes [#/volume] in Blood by Automated count 10.0 x10*3/UL 4.1-1 0.9 [facility] ([facility]) Hemoglobin [Mass/volume] in Blood 14.9 g/dL 12.0-18.0 [facility] ([facility]) Erythrocytes [#/volume] in Blood by Automated count 4.98 x10*6/UL 4.2 0-6.30 [facility] ([facility]) Hematocrit [Volume Fraction] of Blood by Automated count 44.6 % 3 7.0-51.0 [facility] ([facility]) MCV 89.5 fL 80.0-97.0 [facility] ([facility]) Erythrocyte distribution width [Ratio] by Automated count 13.5 % 11.6-13.7 [facility] ([facility]) MCH 30.0 pg 26.0-32.0 [facility] ([facility]) MCHC 33.5 g/dL 31.0-38.0 [facility] ([facility]) MPV 8.0 FL 7.8-11.0 [facility] ([facility]) Platelets [#/volume] in Blood by Automated count 363 x10*3/UL 140-440 [facility] ([facility]) Lymph % 19.3 % 10.0-58.5 [facility] Neut % 74.9 % 37.0-92.0 [facility] ([facility]) Lymph # 1.9 x10*3/UL 0.6-4.1 [facility] ([facility]) Mid % 5.8 % 1.7-9.3 [facility] ([facility]) Mid # 0.6 x10*3/UL 0.1-0.6 [facility] ([facility]) Neut # 7.5 x10*3/UL 2.0-7.8 [facility] ([facility]) ID Date Data Source [id number] 11/24/2019 01:09:00 PM EDT [facility] ([facility]) Name Value Range Interpretation Code Description Data Hannah rce(s) Supporting Document(s) Potassium [Moles/volume] in Serum or Plasma 4.6 meq/L 3.5-5.1 [facility] ([facility]) ID Date Data Source [id number] 11/24/2019 12:19:00 PM EDT [facility] ([facility]) Name Value Range Interpretation Code Description Data Hannah rce(s) Supporting Document(s) Laboratory test finding (navigational concept) 49.0 % 38.0-51.0 [facility] ([facility]) Laboratory test finding (navigational concept) 187 mg/dL 70-105 [facility] ([facility]) Laboratory test finding (navigational concept) 5.5 meq/L 3.5-5.1 [facility] ([facility]) Laboratory test finding (navigational concept) 138 meq/L 136-145 [facility] ([facility]) Laboratory test finding (navigational concept) 4.3 mg/dL 4.5-5.3 [facility] ([facility]) Laboratory test finding (navigational concept) 106 meq/L 98-109 [facility] ([facility]) Laboratory test finding (navigational concept) 25.0 MM/L 23.0-27.0 [facility] ([facility]) Laboratory test finding (navigational concept) 26 mg/dL 8-26 [facility] ([facility]) Laboratory test finding (navigational concept) 1.0 mg/dL 0.6-1.3 [facility] ([facility]) ID Date Data Source [id number] 11/24/2019 12:18:00 PM EDT [facility] ([facility]) Name Value Range Interpretation Code Description Data Hannah rce(s) Supporting Document(s) White Blood Count 11.2 10 4.0-10.0 [facility] ([facility]) Red Blood Count 5.35 10 4.30-6.10 [facility] ([facility]) Hemoglobin 16.6 g/dL 13.5-17.5 [facility] Hematocrit 48.2 % 42.0-52.0 [facility] Mean Corpuscular Hemoglobin 31.0 pg 27.0-33.0 [facility] ([facility]) Mean Corpuscular Volume 90.1 fl 80.0-96.0 [facility] ([facility]) Mean Corpuscular HGB Conc 34.4 g/dL 32.0-36.5 [facility] ([facility]) Platelet Count, Automated 406 10 150-450 [facility] ([facility]) Red Cell Distribution Width 13.0 % 11.5-14.5 [facility] ([facility]) Neutrophils % 73.4 % 36.0-66.0 [facility] ([facility]) [place] % 6.6 % 0.0-5.0 [facility]) Lymph % 15.4 % 24.0-44.0 [facility]) Eos % 2.8 % 0.0-3.0 [facility]) Immature Granulocyte % 1.0 % 0-3.0 [facility] ([facility]) Baso % 0.8 % 0.0-1.0 [facility]) Nucleated Red Blood Cell % 0.0 % 0-0 [facility] ([facility]) Lymph # 1.7 10 1.5-5.0 [facility]) Neutrophils # 8.2 10 1.5-8.5 [facility] ([facility]) Eos # 0.3 10 0.0-0.5 [facility]) [place] # 0.7 10 0.0-0.8 [facility]) Baso # 0.1 10 0.0-0.2 [facility]) ID Date Data Source [id number] 11/24/2019 11:43:00 AM EDT [facility] ([facility], ) Name Value Range Interpretation Code Description Data Hannah rce(s) Supporting Document(s) Bacteria identified in Ear by Aerobe culture Laboratory test res ult Normal (applies to non-numeric results) [facility] ([facility], ) FULL REPORT IN LAB NOTES ([facility] and [facility] ). NORMAL ELENO PRESENT ID Date Data Source [id number] 08/02/2019 08:50:00 AM EST [facility] ([facility]) Name Value Range Interpretation Code Description Data Hannah rce(s) Supporting Document(s) Thyrotropin [Units/volume] in Serum or Plasma by Detec tion limit <= 0.05 mIU/L 1.66 uIU/mL 0.36-3.74 [facility] ([facility] ) ID Date Data Source [id number] 08/02/2019 08:50:00 AM EST [facility] ([facility]) Name Value Range Interpretation Code Description Data Hannah rce(s) Supporting Document(s) Cholesterol [Mass/volume] in Serum or Plasma 213 mg/dL 131-200 [facility] ([facility]) Triglyceride [Mass/volume] in Serum or Plasma 301 mg/dL 30-150 [facility] ([facility]) Cholesterol in LDL [Mass/volume] in Serum or Plasma by calcu lation 112 CALC 50-159 [facility] ([facility]) Cholesterol in HDL [Mass/volume] in Serum or Plasma 41 mg/dL 35-60 [facility] ([facility]) ID Date Data Source [id number] 08/02/2019 08:50:00 AM EST [facility] ([facility]) Name Value Range Interpretation Code Description Data Hannah rce(s) Supporting Document(s) Glucose [Mass/volume] in Serum or Plasma 179 mg/dL 74-99 [facility] ([facility]) 100-125 mg/dL PRE-DIABETES/FASTING >126 mg/dL DIABETES/FASTING Urea nitrogen [Mass/volume] in Serum or Plasma 23 mg/dL 7-18 [facility] ([facility]) Creatinine 1.1 mg/dL 0.6-1.3 [facility] ([facility]) Potassium [Moles/volume] in Serum or Plasma 4.2 meq/L 3.5-5.1 [facility] ([facility]) Sodium [Moles/volume] in Serum or Plasma 139 meq/L 136-145 [facility] ([facility]) Chloride [Moles/volume] in Serum or Plasma 102 meq/L 98-107 [facility] ([facility]) Carbon dioxide, total [Moles/volume] in Serum or Plasma 29 meq/L 21 -32 [facility] ([facility]) Calcium [Mass/volume] in Serum or Plasma 8.5 mg/dL 8.5-10.1 [facility] ([facility]) Alkaline phosphatase isoenzyme [Units/volume] in Serum or Pl asma 92 mg/dL 46-116 [facility] ([facility]) Total Bilirubin 0.3 mg/dL 0.2-1.0 [facility] ([facility]) Aspartate aminotransferase [Enzymatic activity/volume] in Serum or Plasma 13 U/L 15-37 [facility] ([facility] ) Alanine aminotransferase [Enzymatic activity/volume] in Seru m or Plasma 27 U/L 12-78 [facility] ([facility]) A/G Ratio 1.16 CALC 1.00-1.90 [facility]) Albumin [Mass/volume] in Serum or Plasma 3.6 g/dL 3.4-5.0 [facility] ([facility]) Proteinase 3 Ab [Units/volume] in Serum 6.7 g/dL 6.4-8.2 [facility] ([facility]) Glomerular filtration rate/1.73 sq M pre dicted among blacks [Volume Rate/Area] in Serum or Plasma by Creatinine-based formula (MDRD) Laboratory test result [facility] ([facility]) <content>CHRONIC KIDNEY DISEASE STAGING PER NKF</content>
<content></content>
<content>STAGE I & II GFR >= 60 NORMAL TO MILDLY DECREASED</content>
<content>STAGE III GFR 30-59 MODERATELY DECREASED</content>
<content>STAGE IV GFR 15-29 SEVERELY DECREASED</content>
<content>STAGE V GFR <15 VERY LITTLE GFR LEFT</content>
<content>ESRD GFR <15 ON DREDGE OPERATOR</content>
<content></content> Glomerular filtration rate/1.73 sq M pre dicted among non-blacks [Volume Rate/Area] in Serum or Plasma by Creatinine-based formula (MDRD) Laboratory test result [facility] ) ID Date Data Source [id number] 08/02/2019 08:50:00 AM [facility]) Name Value Range Interpretation Code Description Data Hannah rce(s) Supporting Document(s) Hemoglobin A1c/Hemoglobin.total in Blood 8.2 g/dL 4.8-5.6 [facility] ([facility]) Lab Result Notes: Pre-Diabetes 5.7 - 6.4 % Diabetes = or > 6.5% Glucose mean value [Mass/volume] in Blood Estimated fr om glycated hemoglobin 189 mg/dL 60-110 [facility] ([facility] ) ID Date Data Source [id number] 08/02/2019 08:50:00 AM EST [facility] ([facility]) Name Value Range Interpretation Code Description Data Hannah rce(s) Supporting Document(s) Leukocytes [#/volume] in Blood by Automated count 9.2 x10*3/UL 4.1-10 .9 [facility] Erythrocytes [#/volume] in Blood by Automated count 5.05 x10*6/UL 4.2 0-6.30 [facility] ([facility] Hematocrit [Volume Fraction] of Blood by Automated count 45.2 % 3 7.0-51.0 [facility] Hemoglobin [Mass/volume] in Blood 15.3 g/dL 12.0-18.0 [facility] ([facility]) MCV 89.6 fL 80.0-97.0 [facility] ([facility]) Erythrocyte distribution width [Ratio] by Automated count 13.0 % 11.6-13.7 [facility] ([facility] MCH 30.4 pg 26.0-32.0 [facility] ([facility]) MCHC 33.9 g/dL 31.0-38.0 [facility] Lymph % 21.3 % 10.0-58.5 [facility] [facility] MPV 8.2 FL 7.8-11.0 [facility] [facility] Platelets [#/volume] in Blood by Automated count 296 x10*3/UL 140-440 [facility] ([facility]) Mid % 5.2 % 1.7-9.3 [facility] ([place] [facility]) Neut % 73.5 % 37.0-92.0 [facility] ([place] [facility] Lymph # 1.9 x10*3/UL 0.6-4.1 [facility] ([facility]) Mid # 0.6 x10*3/UL 0.1-0.6 [facility] ([facility]) Neut # 6.7 x10*3/UL 2.0-7.8 [facility] ([facility]) Procedure Social History Code Duration Value Status Description Data Source(s ) Smoking 06/25/2020 12:00:00 AM EST Patient is a former smoker completed Patient is a former smoker [facility] ([facility], ) Vital Signs ID Date Data Source UNK Name Value Range Interpretation Code Description Data Source(s) Body mass index (BMI) [Ratio] 37.1 kg/m2 37.1 k g/m2 [facility] ([facility]) Oxygen saturation in Arterial blood by Pulse oximetry --post exerci se 87 % 87 % [facility] ([facility]) Oxygen saturation in Arterial blood by Pulse oximetry 91 % 91 % [facility] ([facility]) Body weight 251.00 [lb_av] 251.00 [lb_av] MEDEN T ([facility]) Body height 69.0 [in_i] 69.0 [in_i] [facility] ([facility]) 5'9" Heart rate 88 /min 88 /min [facility] ([facility]) Diastolic blood pressure 78 mm[Hg] 78 mm[Hg] [facility] ([facility]) Systolic blood pressure 130 mm[Hg] 130 mm[Hg] M FRANCESCA ([facility]) Body surface area Derived from formula 2.31 m2 2.31 m2 [facility] ([facility]) Body weight 115.668 kg 115.668 kg [facility] ([facility]) [place] body weight 166 [lb_av] 166 [lb_av] MEDEN T ([facility]) Body mass index (BMI) [Ratio] 36.6 kg/m2 36.6 k g/m2 [facility] ([facility]) Body weight 255.00 [lb_av] 255.00 [lb_av] MEDEN T ([facility]) Body height 70 [in_i] 70 [in_i] [facility] ([facility]) 5'10" Oxygen saturation in Arterial blood by Pulse oximetry 95 % 95 % [facility] ([facility]) Heart rate 93 /min 93 /min [facility] ([facility]) Diastolic blood pressure 90 mm[Hg] 90 mm[Hg] [facility] ([facility]) Systolic blood pressure 142 mm[Hg] 142 mm[Hg] [facility] ([facility]) Body mass index (BMI) [Ratio] 37.9 kg/m2 37.9 k g/m2 [facility] ([facility]) Oxygen saturation in Arterial blood by Pulse oximetry 90 % 90 % [facility] ([facility]) Body weight 257.00 [lb_av] 257.00 [lb_av] MEDEN T ([facility]) Body height 69.0 [in_i] 69.0 [in_i] [facility] ([facility]) 5'9" Heart rate 88 /min 88 /min [facility] ([facility]) Diastolic blood pressure 84 mm[Hg] 84 mm[Hg] [facility] ([facility]) Systolic blood pressure 136 mm[Hg] 136 mm[Hg] [facility] ([facility]) Body surface area Derived from formula 2.29 m2 2.29 m2 [facility] ([facility]) Body weight 113.400 kg 113.400 kg [facility] ([facility]) [place] body weight 166 [lb_av] 166 [lb_av] MED[facility] T ([facility]) Body mass index (BMI) [Ratio] 35.9 kg/m2 35.9 k g/m2 [facility] ([facility]) Body weight 250.00 [lb_av] 250.00 [lb_av] MED[facility] T ([facility]) Body height 70 [in_i] 70 [in_i] [facility] ([facility]) 5'10" Diastolic blood pressure 60 mm[Hg] 60 mm[Hg] [facility] ([facility]) Systolic blood pressure 139 mm[Hg] 139 mm[Hg] [facility] ([facility]) Body weight 112.493 kg 112.493 kg [facility] ([facility]) [place] body weight 166 [lb_av] 166 [lb_av] MED[facility] T ([facility]) Body mass index (BMI) [Ratio] 35.6 kg/m2 35.6 k g/m2 [facility] ([facility]) Body weight 248.00 [lb_av] 248.00 [lb_av] [facility] T ([facility]) Body height 70 [in_i] 70 [in_i] [facility] ([facility]) 5'10" Body temperature 96.8 [degF] 96.8 [degF] [facility] ([facility]) Oxygen saturation in Arterial blood by Pulse oximetry 94 % 94 % [facility] ([facility]) Heart rate 79 /min 79 /min [facility] ([facility]) Diastolic blood pressure 88 mm[Hg] 88 mm[Hg] [facility] ([facility]) Systolic blood pressure 128 mm[Hg] 128 mm[Hg] [facility] ([facility]) Systolic blood pressure 92 mm[Hg] 92 mm[Hg] [facility] ([facility]) Body mass index (BMI) [Ratio] 38.1 kg/m2 38.1 k g/m2 [facility] ([facility]) Oxygen saturation in Arterial blood by Pulse oximetry 92 % 92 % [facility] ([facility]) Body weight 258.00 [lb_av] 258.00 [lb_av] MED[facility] T ([facility]) Body height 69.0 [in_i] 69.0 [in_i] [facility] ([facility]) 5'9" Heart rate 80 /min 80 /min [facility] ([facility]) Diastolic blood pressure 78 mm[Hg] 78 mm[Hg] [facility] ([facility]) Body weight 114.761 kg 114.761 kg [facility] ([facility]) Body mass index (BMI) [Ratio] 36.3 kg/m2 36.3 k g/m2 [facility] Body weight 253.00 [lb_av] 253.00 [lb_av] MED[facility] T ([facility]) Body height 70 [in_i] 70 [in_i] [facility] ([facility]) 5'10" Body weight 251.00 [lb_av] 251.00 [lb_av] MEDEN T ([facility]) Body height 69.0 [in_i] 69.0 [in_i] [facility] ([facility]) 5'9" Heart rate 76 /min 76 /min [facility] Diastolic blood pressure 80 mm[Hg] 80 mm[Hg] [facility] ([facility]) Systolic blood pressure 136 mm[Hg] 136 mm[Hg] M EDENT ([facility]) Body mass index (BMI) [Ratio] 37.1 kg/m2 37.1 k g/m2 [facility] ([facility]) Body weight 114.761 kg 114.761 kg [facility] ([facility]) Body mass index (BMI) [Ratio] 36.3 kg/m2 36.3 k g/m2 [facility] Body weight 253.00 [lb_av] 253.00 [lb_av] MEDEN T ([facility]) Body height 70 [in_i] 70 [in_i] [facility] ([facility]) 5'10" Body weight 114.761 kg 114.761 kg [facility] ([facility]) Body mass index (BMI) [Ratio] 36.3 kg/m2 36.3 k g/m2 [facility] ([facility]) Body weight 253.00 [lb_av] 253.00 [lb_av] MED[facility] T ([facility]) Body height 70 [in_i] 70 [in_i] [facility] ([facility]) 5'10" Body weight 114.761 kg 114.761 kg [facility] ([facility]) Body mass index (BMI) [Ratio] 36.3 kg/m2 36.3 k g/m2 [facility] Body weight 253.00 [lb_av] 253.00 [lb_av] MEDEN T ([facility]) Body height 70 [in_i] 70 [in_i] [facility] ([facility]) 5'10" Body weight 114.761 kg 114.761 kg [facility] ([facility]) Body mass index (BMI) [Ratio] 36.3 kg/m2 36.3 k g/m2 [facility] Body weight 253.00 [lb_av] 253.00 [lb_av] MEDEN T ([facility]) Body height 70 [in_i] 70 [in_i] [facility] ([facility]) 5'10" Body mass index (BMI) [Ratio] 38.2 kg/m2 38.2 k g/m2 [facility] ([facility]) Oxygen saturation in Arterial blood by Pulse oximetry 95 % 95 % [facility]) RM Air Body weight 259.00 [lb_av] 259.00 [lb_av] MEDEN T ([facility]) Body height 69.0 [in_i] 69.0 [in_i] [facility] ([facility]) 5'9" Body temperature 97.6 [degF] 97.6 [degF] [facility] ([facility]) Oral Heart rate 100 /min 100 /min [facility] ([facility]) Diastolic blood pressure 82 mm[Hg] 82 mm[Hg] [facility] ([facility]) RT Arm Systolic blood pressure 138 mm[Hg] 138 mm[Hg] M EDENT ([facility]) RT Arm Body mass index (BMI) [Ratio] 38.1 kg/m2 38.1 k g/m2 [facility] ([facility]) Body weight 258.00 [lb_av] 258.00 [lb_av] MEDEN T ([facility]) Body height 69 [in_i] 69 [in_i] [facility] ([facility]) 5'9" Respiratory rate 12 /min 12 /min [facility] ( [facility]) Body mass index (BMI) [Ratio] 40.0 kg/m2 40.0 k g/m2 [facility] ([facility]) Body weight 271.00 [lb_av] 271.00 [lb_av] MEDEN T ([facility]) Body height 69.0 [in_i] 69.0 [in_i] [facility] ([facility]) 5'9" Heart rate 70 /min 70 /min [facility] ([facility]) Diastolic blood pressure 76 mm[Hg] 76 mm[Hg] [facility] ([facility]) Systolic blood pressure 138 mm[Hg] 138 mm[Hg] M EDENT ([facility]) Body mass index (BMI) [Ratio] 38.1 kg/m2 38.1 k g/m2 [facility] ([facility]) Body weight 258.00 [lb_av] 258.00 [lb_av] MEDEN T ([facility]) Body height 69 [in_i] 69 [in_i] [facility] ([facility]) 5'9" Respiratory rate 12 /min 12 /min [facility] ( [facility]) Heart rate 72 /min 72 /min [facility] ([facility]) Diastolic blood pressure 88 mm[Hg] 88 mm[Hg] [facility] ([facility]) Systolic blood pressure 124 mm[Hg] 124 mm[Hg] M EDENT ([facility], ) Diastolic blood pressure--sitting 72 mm[Hg] 72 mm[Hg] [facility] ([facility]) large cuff, Ra Systolic blood pressure--sitting 122 mm[Hg] 122 mm[Hg] DEBBIE ([facility]) large cuff, Ra Heart rate 66 /min 66 /min [facility] Body mass index (BMI) [Ratio] 38.4 kg/m2 38.4 k g/m2 [facility] ([facility]) Body height 70 [in_i] 70 [in_i] [facility] 5'10" Body weight 268.00 [lb_av] 268.00 [lb_av] DEMI Schultz ([facility])
--- NOTE | 2020-09-03 04:58 | HPEPDOC ---
General Date of Admission Sep 03, 2020 Date of Service: Sep 03, 2020 Chief Complaint The patient is a 64-year-old male admitted with a reason for visit of Gorge Sandoval. History of Present Illness Mr. Jang is a 64 year old male with COPD and DM who is here for worsening dyspnea. He was recently here for COPD exacerbation from 08/12/2020 to 08/16/2020. After discharge, he was feeling well for about 4 to 5 days before he could feel himself decline. he started to have increasing dyspnea and productive cough. About a week ago, it was the worse. At home, he was desaturating down between 82 to 88. They were trying to obtain home oxygen for him, but today he had a high fever of 103.3 and he was brought to the ED. He said that he could bring air in, but had trouble forcing air out. He could only say 2 to 3 words before gasping for air. All weekend he had coughing fits and brought up thick yellow sputum. While in the ED, he required 4L to maintain his saturation. When off oxygen, he desaturates down tot he 80s per ED. Patient will be admitted for COPD exacerbation. Home Medications Scheduled Aspirin (Aspirin EC) 81 Mg Tablet.dr, 81 MG PO QHS, (Reported) Atorvastatin Calcium (Atorvastatin Calcium) 10 Mg Tab, 10 MG PO QHS, (Reported) Budesonide/Formoterol (Symbicort 160-4.5 Mcg Inhaler) 60 Puff/Inhaler Aers, 2 PUFF INH BID, (Reported) Duloxetine Hcl (Duloxetine HCl) 30 Mg Cap, 60 MG PO QAM, (Reported) Duloxetine Hcl (Duloxetine HCl) 30 Mg Capsule.dr, 30 MG PO QHS, (Reported) Glimepiride (Glimepiride) 2 Mg Tablet, 2 MG PO DAILY, (Reported) Guaifenesin (Mucinex) 600 Mg Tab.er.12h, 600 MG PO BID, (Reported) Propranolol HCl (Propranolol HCl) 20 Mg Tab, 20 MG PO BID, (Reported) Tamsulosin HCl (Flomax) 0.4 Mg Cap, 0.8 MG PO DAILY, (Reported) Scheduled PRN Albuterol Sulfate (Ventolin Hfa) 18 Gm Hfa.aer.ad, 2 PUFFS INH QID PRN for SHORT NESS OF BREATH, (Reported) Epinephrine (Epipen 2-Shashi) 0.3 Mg/0.3 Ml Inj, 0.3 MG INJ ASDIRECTED PRN for ANAPHYLAXIS, (Reported) Ipratropium/Albuterol Sulfate (Iprat-Albut 0.5-3(2.5) mg/3 ml) 3 Ml Ampul.neb, 1 VIAL INH QID PRN for SHORTNESS OF BREATH, (Reported) Allergies Coded Allergies: Penicillins (Verified Allergy, Severe, anaphylaxis, 06/19/20) per Dr. García ibuprofen (Verified Allergy, Severe, SWELLING OF FACE, 06/19/20) only to brand name advil, ok with generic formulations codeine (Verified Allergy, Mild, HIVES, 06/19/20) bee venom protein (honey bee) (Verified Allergy, Unknown, 06/19/20) Past Medical History Medical History 1. COPD 2. HTN 3. Aortic stenosis 4. DLP 5. NIDDM2 6. Neuropathy 7. Essential tremors Surgical History 1. Umbilical hernia repair 2 2. Right-sided carpal tunnel release 3. Right-sided trigger finger release 4. Right fifth digit fracture 5. Bilateral tympanostomies as a child Family History Father: . History of lung cancer and COPD Mother: . History of lung cancer, pancreatic cancer, and COPD Social History * Smoker: former Smoker (Smoked for 25 years, quit in 2000, smoked 2ppd) Alcohol: Denies Drugs: marijuana (Medical marijuana for chronic pain) A-FIB/CHADSVASC A-FIB History Current/History of A-Fib/PAF?: No Review of Systems Constitutional: Reports: Fever Eyes: Denies: Vision change ENT: Denies: Sore Throat Skin: Denies: Rash Pulmonary: Reports: Dyspnea, Cough (productive wtih thick sputum) Cardiovascular: Reports: Chest Pain (More discomfort than pain. Feels all the time of which he uses medical marijuana), Lt Headedness Gastrointestinal: Denies: Nausea, Abdominal Pain Genitourinary: Denies: Dysuria Hematologic: Denies: Bruising Musculoskeletal: Reports: Other Symptoms (Pain from head to toe chronically) Neurological: Reports: Other Symptoms (Reports neuropathy) Psych: Reports: Anxiety, Depression Physical Examination General Exam: Positive: Alert, Cooperative Eye Exam: Positive: EOMI; Negative: Sclera icteric ENT Exam: Positive: Atraumatic Neck Exam: Positive: Supple Chest Exam: Positive: Wheezing, Diminished, Other (Poor air movement) Heart Exam: Positive: Rate Normal, Regular Rhythm Abdomen Exam: Positive: Normal bowel sounds, Soft; Negative: Tenderness Extremity Exam: Positive: Edema (mild) Skin Exam: Positive: Nl turgor and temperature Neuro Exam: Positive: Cranial Nerves 3-12 NL Psych Exam: Positive: Mental status NL, Mood NL Vital Signs Vital Signs Date Time Temp Pulse Resp B/P (MAP) Pulse Ox O2 Delivery O2 Flow Rate FiO2 09/03/20 03:30 97 94 09/03/20 02:15 22 09/03/20 01:00 130/75 (93) 09/02/20 23:25 100.2 09/02/20 23:23 Nasal Cannula 4.0 Laboratory Data Labs 24H Laboratory Tests 2 09/03/20 00:44: Immature Granulocyte % (Auto) 0.6, Neutrophils (%) (Auto) 90.1H, Lymphocytes (%) (Auto) 4.4L, Monocytes (%) (Auto) 2.1, Eosinophils (%) (Auto) 2.4, Basophils (%) (Auto) 0.4, Neutrophils # (Auto) 12.2H, Lymphocytes # (Auto) 0.6L, Monocytes # (Auto) 0.3, Eosinophils # (Auto) 0.3, Basophils # (Auto) 0.1, Nucleated Red Blood Cells % (auto) 0.0, Anion Gap 7L, Glomerular Filtration Rate > 60.0, Lactic Acid Level 0.9, Calcium Level 9.2, Total Bilirubin 0.6, Direct Bilirubin 0.1, Aspartate Amino Transf (AST/SGOT) 12, Alanine Aminotransferase (ALT/SGPT) 19, Alkaline Phosphatase 112, Total Creatine Kinase 71, Creatine Kinase MB 1.4, Creatine Kinase MB Relative Index 1.97, Troponin I < 0.02, AJ-Vxg-I-Type Natriuretic Peptide 35, Total Protein 6.7, Albumin 2.8L, Albumin/Globulin Ratio 0.7 09/03/20 00:59: POC pH (Misc Panel) 7.386, POC Base Excess (Misc Panel) 1.0, POC Saturated Percent O2 (Misc) 94L, POC pO2 (Misc Panel) 74.0L, POC pCO2 (Misc Panel) 42.7, POC HCO3 (Misc Panel) 25.6, POC Total CO2 (Misc Panel) 27.0 CBC/BMP Laboratory Tests 09/03/20 00:44 Microbiology Microbiology 09/03/20 Respiratory Virus Panel (PCR) ([facility]) - Final, Complete Assessment/Plan Mr. Jang is a 64 year old male with COPD and DM who is here for recurrent COPD exacerbation. He does well a few days after discharge, but returns with exacerbation afterwards. It is possible that there is an environmental allergen element at home. Last admission, they were elevated on arrival but disappeared afterwards. Now his eosinophils are present, but not elevated. Otherwise, he will receive IV steroids, IV levofloxacin, and scheduled and PRN breathing treatments. Plan / VTE VTE Prophylaxis Ordered?: Yes Plan Plan 1. COPD exacerbation -He feels well on discharge, but starts to worsen after being a home for a few days -Hypoxic at home -While here, desaturates to the 80s at room air. Requiring 4L NC -Dyspnea with productive cough -IV steroids, IV levofloxacin, and scheduled and PRN breathing treatments -Continue home inhalers and guaifenesin 2. Diabetes mellitus -Sliding scale insulin and carbohydrate consistent diet 3. BPH -Tamsulosin 4. Anxiety/Depression -Continue duloxetine 5. Dyslipidemia -Continue Atorvastatin 6. DVT ppx -Lovenox BILLY ANDRE DO Sep 03, 2020 04:58
[2020-09-03] MEDS ORDERED: AZITHROMYCIN INJ 500 MG, VIAL MATE ADAPTER 1 EACH in D5W 250 ML IV SCH (05:00)
[2020-09-03 05:15] VITALS: BP 123/80
[2020-09-03] MEDS: LevoFLOXacin IV 750 MG in IV 1 EA IV SCH (06:14)
[2020-09-03] MEDS: IPRATROPIUM 0.5MG/ALBUTEROL 2.5MG INH SOL UD 3ML (DUONEB) NEB SCH ×5 (07:21→19:59)
[2020-09-03] MEDS: SYMBICORT 160/4.5MCG INHALER 6GM INH SCH ×2 (07:21→19:59)
[2020-09-03 07:46] VITALS: BP 124/82
--- NOTE | 2020-09-03 07:57 | ECGEPIP ---
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
[2020-09-03] MEDS: PROPRANOLOL 20 MG TAB PO SCH ×2 (08:59→21:36)
[2020-09-03] MEDS: DULoxetine 30 MG CAP (CYMBALTA) PO SCH ×2 (08:59→21:37)
[2020-09-03] MEDS: HumaLOG INSULIN (NovoLOG) PER UNIT SC SCH ×4 (08:59→21:35)
[2020-09-03] MEDS: ENOXAPARIN 40MG/0.4ML SYRINGE (J1650 PER 10MG) SC SCH (09:12)
[2020-09-03] MEDS: guaiFENesin ER 600 MG TAB PO SCH ×2 (09:13→21:37)
[2020-09-03] MEDS: TAMSULOSIN 0.4 MG CAP PO SCH (09:13)
[2020-09-03] MEDS: methylPREDNISolone 40MG 1ML VIAL IV SCH ×2 (13:18→21:35)
[2020-09-03 14:12] VITALS: BP 123/83
[2020-09-03] MEDS: PERCOCET 5MG/325MG TAB PO PRN ×2 (15:02→21:39)
--- NOTE | 2020-09-03 15:51 | IPNPDOC ---
Text Note Date of Service The patient was seen on 09/03/20. NOTE Subjective: No any acute events overnight. Patient continues to complain of s hortness of breath but stated it's getting better Objective: GENERAL APPEARANCE: NAD HEENT: no scleral icterus, no JVD, EOMI CARDIOVASCULAR: S1S2 LUNGS: Diminished lung sounds bilaterally ABDOMEN: soft & not tender w palpitation MUSCULOSKELETAL: no cyanosis, no swelling INTEGUMENT: no generalized pallor NEUROLOGICAL: cranial nerve function from 2-12 intact intact, follows commands, speech not dysarthric Assessment/Plan Mr. Jang is a 64 year old male with COPD and DM who is here for recurrent COPD exacerbation. He does well a few days after discharge, but returns with exacerbation afterwards. It is possible that there is an environmental allergen element at home. Last admission, they were elevated on arrival but disappeared afterwards. Now his eosinophils are present, but not elevated. Otherwise, he will receive IV steroids, IV levofloxacin, and scheduled and PRN breathing treatments. Plan 1. COPD exacerbation Continue inhalers, steroid Levofloxacin 2. Diabetes mellitus -Sliding scale insulin and carbohydrate consistent diet 3. BPH -Tamsulosin 4. Anxiety/Depression -Continue duloxetine 5. Dyslipidemia -Continue Atorvastatin VS,Fishbone, I+O VS, Fishbone, I+O Laboratory Tests 09/03/20 00:44 Vital Signs Date Time Temp Pulse Resp B/P (MAP) Pulse Ox O2 Delivery O2 Flow Rate FiO2 09/03/20 15:32 16 09/03/20 14:12 98.0 101 123/83 (96) 91 Nasal Cannula 0.5 I&O- Last 24 Hours up to 6 AM 09/03/20 05:59 Intake Total 0 ml Output Total 0 ml Balance 0 ml NATHALY CAZARES DO Sep 03, 2020 15:51
[2020-09-03] MEDS: ASPIRIN 81 MG ENTERIC TAB PO SCH (21:36)
[2020-09-03] MEDS: ATORVASTATIN 10 MG TAB PO SCH (21:37)
[2020-09-03 22:00] VITALS: BP 122/81
[2020-09-04] MEDS: PERCOCET 5MG/325MG TAB PO PRN ×3 (02:16→21:52)
[2020-09-04] MEDS: IPRATROPIUM 0.5MG/ALBUTEROL 2.5MG INH SOL UD 3ML (DUONEB) NEB SCH ×3 (04:00→20:46)
[2020-09-04] MEDS: methylPREDNISolone 40MG 1ML VIAL IV SCH (05:39)
[2020-09-04] MEDS: LevoFLOXacin IV 750 MG in IV 1 EA IV SCH (05:39)
[2020-09-04 06:00] VITALS: BP 120/62
[2020-09-04 06:46] LABS: HEMATOCRIT 42.6 % (42.0-52.0); MEAN CORPUSCULAR HEMOGLOBIN 28.2 pg (27.0-33.0); MEAN CORPUSCULAR HGB CONC 32.2 g/dl (32.0-36.5); MEAN CORPUSCULAR VOLUME 87.7 fl (80.0-96.0); PLATELET COUNT, AUTOMATED 402 10^3/uL (150-450); RED BLOOD COUNT 4.86 10^6/uL (4.30-6.10)
[2020-09-04 06:54] LABS: HEMOGLOBIN 13.7 g/dl (13.5-17.5)
[2020-09-04 07:07] LABS: BLOOD UREA NITROGEN 25 MG/DL (7-18); CALCIUM LEVEL 8.9 MG/DL (8.8-10.2); CARBON DIOXIDE LEVEL 27 MEQ/L (21-32); CHLORIDE LEVEL 105 MEQ/L (98-107); CREATININE FOR GFR 1.09 MG/DL (0.70-1.30); GLOMERULAR FILTRATION RATE > 60.0 (>49); GLUCOSE, FASTING 267 MG/DL (70-100); POTASSIUM SERUM 4.7 MEQ/L (3.5-5.1); SODIUM LEVEL 140 MEQ/L (136-145)
[2020-09-04] MEDS: SYMBICORT 160/4.5MCG INHALER 6GM INH SCH ×2 (07:26→20:46)
[2020-09-04] MEDS: HumaLOG INSULIN (NovoLOG) PER UNIT SC SCH ×4 (08:32→21:44)
[2020-09-04] MEDS: ENOXAPARIN 40MG/0.4ML SYRINGE (J1650 PER 10MG) SC SCH (08:33)
[2020-09-04] MEDS: guaiFENesin ER 600 MG TAB PO SCH ×2 (08:33→21:43)
[2020-09-04] MEDS: TAMSULOSIN 0.4 MG CAP PO SCH (08:33)
[2020-09-04] MEDS: DULoxetine 30 MG CAP (CYMBALTA) PO SCH ×2 (08:33→21:43)
[2020-09-04] MEDS: PROPRANOLOL 20 MG TAB PO SCH (08:35)
[2020-09-04] MEDS: predniSONE 20 MG TAB PO SCH (09:06)
[2020-09-04] MEDS ORDERED: predniSONE 20 MG TAB PO ONE (13:45)
--- NOTE | 2020-09-04 13:50 | IPNPDOC ---
Text Note Date of Service The patient was seen on 09/04/20. NOTE Subjective: No any acute events overnight. Patient continues to have increased shortness of breath during exertion Objective: GENERAL APPEARANCE: NAD HEENT: no scleral icterus, no JVD, EOMI CARDIOVASCULAR: S1S2 LUNGS: Diminished lung sounds bilaterally ABDOMEN: soft & not tender w palpitation MUSCULOSKELETAL: no cyanosis, no swelling INTEGUMENT: no generalized pallor NEUROLOGICAL: cranial nerve function from 2-12 intact intact, follows commands, speech not dysarthric Assessment/Plan Mr. Jang is a 64 year old male with COPD and DM who is here for recurrent COPD exacerbation. He does well a few days after discharge, but returns with exacerbation afterwards. It is possible that there is an environmental allergen element at home. Last admission, they were elevated on arrival but disappeared afterwards. Now his eosinophils are present, but not elevated. Otherwise, he will receive IV steroids, IV levofloxacin, and scheduled and PRN breathing treatments. Plan 1. COPD exacerbation Continue prednisone by mouth, steroid Levofloxacin X-ray showed No acute or focal cardiopulmonary process 2. Diabetes mellitus -Sliding scale insulin and carbohydrate consistent diet 3. BPH -Tamsulosin 4. Anxiety/Depression -Continue duloxetine 5. Dyslipidemia -Continue Atorvastatin VS,Fishbone, I+O VS, Fishbone, I+O Laboratory Tests 09/04/20 06:10 Vital Signs Date Time Temp Pulse Resp B/P (MAP) Pulse Ox O2 Delivery O2 Flow Rate FiO2 09/04/20 09:36 18 09/04/20 08:35 101 121/73 09/04/20 08:15 1.0 09/04/20 06:00 96.5 94 Nasal Cannula I&O- Last 24 Hours up to 6 AM 09/04/20 06:00 Intake Total 1020 ml Output Total 0 ml Balance 1020 ml NATHALY CAZARES DO Sep 04, 2020 13:50
[2020-09-04 14:00] VITALS: BP 135/80
[2020-09-04] MEDS: METOPROLOL TART 25 MG TABLET PO SCH (21:44)
[2020-09-04] MEDS: ATORVASTATIN 10 MG TAB PO SCH (21:44)
[2020-09-04] MEDS: ASPIRIN 81 MG ENTERIC TAB PO SCH (21:44)
[2020-09-04 22:00] VITALS: BP 140/82
[2020-09-05] MEDS: IPRATROPIUM 0.5MG/ALBUTEROL 2.5MG INH SOL UD 3ML (DUONEB) NEB SCH ×2 (01:15→06:27)
[2020-09-05] MEDS: LevoFLOXacin IV 750 MG in IV 1 EA IV SCH (05:24)
[2020-09-05 06:00] VITALS: BP 123/73
[2020-09-05 06:00] LABS: HEMATOCRIT 38.8 % (42.0-52.0); HEMOGLOBIN 12.1 g/dl (13.5-17.5); MEAN CORPUSCULAR HEMOGLOBIN 27.6 pg (27.0-33.0); MEAN CORPUSCULAR HGB CONC 31.2 g/dl (32.0-36.5); MEAN CORPUSCULAR VOLUME 88.4 fl (80.0-96.0); PLATELET COUNT, AUTOMATED 347 10^3/uL (150-450); RED BLOOD COUNT 4.39 10^6/uL (4.30-6.10); WHITE BLOOD COUNT 19.5 10^3/uL (4.0-10.0)
[2020-09-05 06:22] LABS: BLOOD UREA NITROGEN 22 MG/DL (7-18); CALCIUM LEVEL 8.3 MG/DL (8.8-10.2); CARBON DIOXIDE LEVEL 27 MEQ/L (21-32); CHLORIDE LEVEL 106 MEQ/L (98-107); GLOMERULAR FILTRATION RATE > 60.0 (>49); GLUCOSE, FASTING 269 MG/DL (70-100); POTASSIUM SERUM 4.6 MEQ/L (3.5-5.1); SODIUM LEVEL 140 MEQ/L (136-145)
[2020-09-05] MEDS: SYMBICORT 160/4.5MCG INHALER 6GM INH SCH (06:27)
[2020-09-05] MEDS: HumaLOG INSULIN (NovoLOG) PER UNIT SC SCH ×2 (07:59→12:00)
[2020-09-05 08:00] VITALS: BP 123/73
[2020-09-05] MEDS: METOPROLOL TART 25 MG TABLET PO SCH (08:00)
[2020-09-05] MEDS: TAMSULOSIN 0.4 MG CAP PO SCH (08:00)
[2020-09-05] MEDS: predniSONE 20 MG TAB PO SCH (08:00)
[2020-09-05] MEDS: DULoxetine 30 MG CAP (CYMBALTA) PO SCH (08:00)
[2020-09-05] MEDS: guaiFENesin ER 600 MG TAB PO SCH (08:00)
[2020-09-05] MEDS: ENOXAPARIN 40MG/0.4ML SYRINGE (J1650 PER 10MG) SC SCH (08:03)
[2020-09-05] MEDS ORDERED: METO1TAB87 PO (10:34)
[2020-09-05] MEDS ORDERED: PRED5PAK PO (10:34)
[2020-09-05 16:11] LABS: BODY FLUID CULTURE Not indicated. (.); LEGIONELLA ANTIGEN URINE Negative (Negative); ORGANISM ID Not indicated. (.); SPECIMEN SOURCE Urine (.); URINE STREP PNEUMONIAE ANTIGEN Negative (Negative)
--- NOTE | 2020-09-05 16:54 | DS.PDOC ---
Discharge Summary General Date of Admission Sep 03, 2020 at 04:48 Date of Discharge 09/05/20 Discharge Summary PROCEDURES PERFORMED DURING STAY: [None]. ADMITTING DIAGNOSES: COPD exacerbation Diabetes mellitus BPH Anxiety/Depression Dyslipidemia DISCHARGE DIAGNOSES: COPD exacerbation Diabetes mellitus BPH Anxiety/Depression Dyslipidemia COMPLICATIONS/CHIEF COMPLAINT: Copd Exacerbation. HISTORY OF PRESENT ILLNESS: Mr. Jang is a 64 year old male with COPD and DM who is here for recurrent COPD exacerbation. He does well a few days after discharge, but returns with exacerbation afterwards. It is possible that there is an environmental allergen element at home. Last admission, they were elevated on arrival but disappeared afterwards. Now his eosinophils are present, but not elevated. Otherwise, he will receive IV steroids, IV levofloxacin, and scheduled and PRN breathing treatments. HOSPITAL COURSE:During the hospital stay the following issues addressed 1. COPD exacerbation Continue prednisone by mouth, steroid Levofloxacin X-ray showed No acute or focal cardiopulmonary process 2. Diabetes mellitus -Sliding scale insulin and carbohydrate consistent diet 3. BPH -Tamsulosin 4. Anxiety/Depression -Continue duloxetine Propranolol has been stopped 5. Dyslipidemia -Continue Atorvastatin DISCHARGE MEDICATIONS: Please see below. ALLERGIES: Please see below. PHYSICAL EXAMINATION ON DISCHARGE: VITAL SIGNS: Please see below. GENERAL APPEARANCE: NAD HEENT: no scleral icterus, no JVD, EOMI CARDIOVASCULAR: S1S2 LUNGS: Diminished lung sounds bilaterally ABDOMEN: soft & not tender w palpitation MUSCULOSKELETAL: no cyanosis, no swelling INTEGUMENT: no generalized pallor NEUROLOGICAL: cranial nerve function from 2-12 intact intact, follows commands, speech not dysarthric LABORATORY DATA: Please see below. PROGNOSIS: Fair ACTIVITY: [As tolerated]. DIET: Regular DISPOSITION: 01 Home, Self-Care. DISCHARGE INSTRUCTIONS: Follow-up with municipal court magistrate and PCP DISCHARGE CONDITION: [Stable]. TIME SPENT ON DISCHARGE: 40 minutes. Vital Signs/I&Os Vital Signs Date Time Temp Pulse Resp B/P (MAP) Pulse Ox O2 Delivery O2 Flow Rate FiO2 09/05/20 09:00 1.0 09/05/20 08:00 88 123/73 09/05/20 06:00 97.8 18 95 Nasal Cannula I&O- Last 24 Hours up to 6 AM 09/05/20 06:00 Intake Total 690 ml Output Total 200 ml Balance 490 ml Laboratory Data Labs 24H Laboratory Tests 2 09/04/20 20:50: Bedside Glucose (Misc Panel) 312H 09/05/20 05:20: Nucleated Red Blood Cells % (auto) 0.0, Anion Gap 7L, Glomerular Filtration Rate > 60.0, Calcium Level 8.3L CBC/BMP Laboratory Tests 09/05/20 05:20 FSBS Laboratory Tests Test 09/04/20 20:50 Range/Units Bedside Glucose (Misc Panel) 312 80-115 MG/DL Microbiology Microbiology 09/03/20 Respiratory Virus Panel (PCR) ([facility]) - Final, Complete Discharge Medications Scheduled Aspirin (Aspirin EC) 81 Mg Tablet.dr, 81 MG PO QHS, (Reported) Atorvastatin Calcium (Atorvastatin Calcium) 10 Mg Tab, 10 MG PO QHS, (Reported) Budesonide/Formoterol (Symbicort 160-4.5 Mcg Inhaler) 60 Puff/Inhaler Aers, 2 PUFF INH BID, (Reported) Duloxetine Hcl (Duloxetine HCl) 30 Mg Cap, 60 MG PO QAM, (Reported) Duloxetine Hcl (Duloxetine HCl) 30 Mg Capsule.dr, 30 MG PO QHS, (Reported) Glimepiride (Glimepiride) 2 Mg Tablet, 2 MG PO DAILY, (Reported) Guaifenesin (Mucinex) 600 Mg Tab.er.12h, 600 MG PO BID, (Reported) Metoprolol Tartrate (Metoprolol Tartrate) 25 Mg Tablet, 25 MG PO BID Prednisone (Prednisone) 5 Mg Tab.ds.pk, 0 PO ASDIRECTED 6 day dose pack taper Tamsulosin HCl (Flomax) 0.4 Mg Cap, 0.8 MG PO DAILY, (Reported) Scheduled PRN Albuterol Sulfate (Ventolin Hfa) 18 Gm Hfa.aer.ad, 2 PUFFS INH QID PRN for SHORTNESS OF BREATH, (Reported) Epinephrine (Epipen 2-Shashi) 0.3 Mg/0.3 Ml Inj, 0.3 MG INJ ASDIRECTED PRN for ANAPHYLAXIS, (Reported) Ipratropium/Albuterol Sulfate (Iprat-Albut 0.5-3(2.5) mg/3 ml) 3 Ml Ampul.neb, 1 VIAL INH QID PRN for SHORTNESS OF BREATH, (Reported) Allergies Coded Allergies: Penicillins (Verified Allergy, Severe, anaphylaxis, 06/19/20) per Dr. Ricky sy (Verified Allergy, Mild, HIVES, 06/19/20) bee venom protein (honey bee) (Verified Allergy, Unknown, 06/19/20) ibuprofen (Verified Allergy, Unknown, face swelling, 09/03/20) NATHALY Damian DO Sep 05, 2020 16:54
== END 2020-09-05 12:37 | disposition home health service (06) | DRG 192 ==
LOC: M ED 23:08 → M ED INP 09-03 04:48 → M MSPAV 09-03 05:15
PROVIDERS: ADMIT Internal Medicine; ATTEND Internal Medicine
DX: J44.1 Chronic obstructive pulmonary disease with (acute) exacerbation (principal); I10 Essential (primary) hypertension; I35.0 Nonrheumatic aortic (valve) stenosis; E78.5 Hyperlipidemia, unspecified; E11.40 Type 2 diabetes mellitus with diabetic neuropathy, unspecified; G25.0 Essential tremor; F41.9 Anxiety disorder, unspecified; F32.9 Major depressive disorder, single episode, unspecified; R09.02 Hypoxemia; N40.0 Benign prostatic hyperplasia without lower urinary tract symptoms; Z79.82 Long term (current) use of aspirin; Z79.84 Long term (current) use of oral hypoglycemic drugs; Z79.899 Other long term (current) drug therapy; Z88.0 Allergy status to penicillin; Z88.5 Allergy status to narcotic agent; Z88.6 Allergy status to analgesic agent; Z91.030 Bee allergy status; Z87.891 Personal history of nicotine dependence

== ENCOUNTER → 2020-09-23 | Outpatient (CLI) | payer MEDICARE ==
[~2020-09-23] MED LIST changes: +GLIM2TAB29 PO; +METO1TAB87 PO; +PRED5PAK PO
--- NOTE | 2020-09-23 10:13 | REP ---
INDICATION: OTHER NONSPECIFIC ABNORMAL FINDING OF LUNG FIELD COMPARISON: 08/24/2020 TECHNIQUE: PA and lateral. FINDINGS: The mediastinum and cardiac silhouette are stable. The lung crowe demonstrate diffuse chronic appearing interstitial changes and emphysematous disease. No focal consolidation, effusion, or pneumothorax. The skeletal structures are intact and normal. IMPRESSION: Chronic interstitial and emphysematous changes noted. No acute consolidation or effusion appreciated. <Electronically signed by Eduardo Bay > 09/23/20 [id number]
== END ==
LOC: M WUC 09:33
PROVIDERS: ATTEND Internal Medicine Pulmonary Disease
DX: R91.8 Other nonspecific abnormal finding of lung field (principal)

== ENCOUNTER 2020-11-02 19:30 | Emergency (ER) | payer MEDICARE | END 2020-11-02 19:54 | disposition left against medical advice (07) | LOC: M ED 19:30 | DX: Z53.21 Procedure and treatment not carried out due to patient leaving prior to being seen by health care provider (principal) ==

== ENCOUNTER → 2020-11-11 | Outpatient (CLI) | payer MEDICARE ==
--- NOTE | 2020-11-11 09:52 | REP ---
INDICATION: CHRONIC OBSTRUCTIVE PULMONARY DISEASE, UNSPECIFIED` COMPARISON: 09/23/2020 as well as multiple other prior exams. TECHNIQUE: PA/Lateral FINDINGS: Lungs: Bilateral fibrotic changes appear stable when compared to more remote exams. There is no definite superimposed acute infiltrate. Heart: Normal in size. Mediastinum: There is calcification of the thoracic aorta. The mediastinal silhouette is unchanged. Pleural angles: Unremarkable.. Bones and soft tissues: Unremarkable. IMPRESSION: No acute pulmonary disease. Stable chronic findings. <Electronically signed by Dwain Burektt > 11/11/20 [id number]
== END ==
LOC: M RAD 09:17
PROVIDERS: ATTEND Internal Medicine Pulmonary Disease
DX: J44.9 Chronic obstructive pulmonary disease, unspecified (principal)

== ENCOUNTER 2020-11-20 12:21 | Inpatient (IN) | payer MEDICARE ==
[~2020-11-20] VITALS: Ht 175.3 cm; Wt 114.8 kg
[~2020-11-20 12:21] MED LIST changes: -LEVE1INJ5 SC; -METO25TA4 PO
[2020-11-20] MEDS ORDERED: LEVE1INJ5 SC (12:42)
[2020-11-20] MEDS ORDERED: COMBIVENT RESPIMAT 100-20MCG INHALER 4GM INH ONE ×2 (13:15→14:00)
[2020-11-20] MEDS ORDERED: methylPREDNISolone 125MG 2ML VIAL IV ONE (13:15)
[2020-11-20 13:17] LABS: BASO # 0.1 10^3/uL (0.0-0.2); BASO % 1.1 % (0.0-1.0); EOS # 0.7 10^3/uL (0.0-0.5); EOS % 5.7 % (0.0-3.0); HEMATOCRIT 44.2 % (42.0-52.0); HEMOGLOBIN 13.5 g/dl (13.5-17.5); LYMPH # 1.8 10^3/uL (1.5-5.0); LYMPH % 13.9 % (24.0-44.0); MEAN CORPUSCULAR HEMOGLOBIN 25.8 pg (27.0-33.0); MEAN CORPUSCULAR HGB CONC 30.5 g/dl (32.0-36.5); MEAN CORPUSCULAR VOLUME 84.4 fl (80.0-96.0); MONO # 0.8 10^3/uL (0.0-0.8); MONO % 6.4 % (2.0-8.0); NEUTROPHILS # 9.3 10^3/uL (1.5-8.5); NEUTROPHILS % 72.5 % (36.0-66.0); PLATELET COUNT, AUTOMATED 470 10^3/uL (150-450); RED BLOOD COUNT 5.24 10^6/uL (4.30-6.10); WHITE BLOOD COUNT 12.8 10^3/uL (4.0-10.0)
[2020-11-20 13:46] LABS: ALT/SGPT 25 U/L (12-78); BLOOD UREA NITROGEN 13 MG/DL (7-18); CARBON DIOXIDE LEVEL 34 MEQ/L (21-32); CHLORIDE LEVEL 99 MEQ/L (98-107); CK-MB VALUE MASS 3.5 NG/ML (<3.6); CPK CREATINE PHOSPHOKINASE 118 U/L (39-308); GLOMERULAR FILTRATION RATE > 60.0 (>49); GLUCOSE, FASTING 180 MG/DL (70-100); MB/CK RELATIVE INDEX 2.97 (< OR =4); SODIUM LEVEL 136 MEQ/L (136-145)
[2020-11-20 13:47] LABS: BILIRUBIN,DIRECT < 0.1 MG/DL (0.0-0.2); BILIRUBIN,TOTAL 0.4 MG/DL (0.2-1.0); NT-PRO BNP 36 PG/ML (<125); TOTAL PROTEIN 7.2 GM/DL (6.4-8.2); TROPONIN I < 0.02 NG/ML (< 0.10)
--- NOTE | 2020-11-20 13:47 | REP ---
INDICATION: DYSPNEA/COUGH. COMPARISON: Comparison chest x-ray November 11, 2020. TECHNIQUE: Portable upright AP chest radiograph. FINDINGS: The lungs are well inflated. No definite infiltrate is seen. There is a rounded pleural type opacity projecting at the right base. 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 This appears unchanged from that CT. No other evidence of infiltrate is seen. Pulmonary vasculature is somewhat cephalized. Oxygen delivery tubing and EKG electrodes are seen. No bony abnormality is seen. Heart is not enlarged.. IMPRESSION: Posterior fat containing hernia projecting at the right lung base unchanged from CT study 13 August 2020. Pulmonary vascular cephalization. Normal heart size. No acute infiltrate. <Electronically signed by Wally Horne > 11/20/20 [id number]
[2020-11-20 13:51] LABS: ABG BASE EXCESS 3.4 (-2.0-2.0); ABG HCO3 27.4 MEQ/L (22.0-26.0); ABG O2 SATURATION 98.1 % (95.0-99.0); ABG PARTIAL PRESSURE CO2 39.5 mmHg (35.0-45.0); ABG PARTIAL PRESSURE O2 100.7 mmHg (75.0-100.0); ABG STANDARD HCO3 27.5 MEQ/L (22.0-26.0); ABG TOTAL CO2 28.6 MEQ/L (23.0-31.0); ABG pH (ARTERIAL) 7.459 UNITS (7.350-7.450)
[2020-11-20] MEDS ORDERED: IPRATROPIUM 0.5MG/ALBUTEROL 2.5MG INH SOL UD 3ML (DUONEB) NEB ONE ×2 (14:40→16:45)
[2020-11-20] MEDS ORDERED: ISOVUE-370 76% 100ML VIAL As Ordered ONE (14:55)
--- NOTE | 2020-11-20 15:16 | REP ---
INDICATION: edema r/o dvt COMPARISON: None. TECHNIQUE: Real time compression and duplex Doppler interrogation of the bilateral lower extremity deep venous system is performed. FINDINGS: Bilaterally, the common femoral, superficial femoral and popliteal veins are fully compressible with transducer pressure and demonstrate normal spontaneous and phasic flow, without evidence of deep venous thrombosis. IMPRESSION: No evidence of deep venous thrombosis of the bilateral lower extremity femoral popliteal venous system. <Electronically signed by Dwain Burkett > 11/20/20 [id number]
--- NOTE | 2020-11-20 16:37 | REP ---
INDICATION: SOB COMPARISON: 08/13/2019 TECHNIQUE: CT angiography of the chest after the intravenous administration of 75 cc Isovue 370 FINDINGS: There is excellent visualization of the pulmonary arterial vasculature. There are no focal filling defects present that would be considered consistent with acute pulmonary emboli. There are no pleural or pericardial effusions. There is an enlarged subcarinal lymph node which is stable. There is no hilar adenopathy. The imaged upper abdomen and imaged osseous structures are unchanged. Note is again made of a Bochdalek's hernia on the right status quo. There is no change in the imaged osseous structures. Evaluation of the lung crowe shows improvement of the patchy opacities seen on the prior exam. No new abnormal opacities have developed. IMPRESSION: 1. There is no evidence of a pulmonary embolus. 2. Improved abnormal lung opacities but with a rather significant residual. Follow-up to resolution should be considered. 3. Enlarged subcarinal lymph node status quo. 4. Other findings as described above. <Electronically signed by Owen Heck > 11/20/20 [id number]
[2020-11-20] MEDS ORDERED: METO25TA4 PO (16:56)
[2020-11-20] MEDS ORDERED: IPRATROPIUM 0.5MG/ALBUTEROL 2.5MG INH SOL UD 3ML (DUONEB) NEB PRN (18:15)
[2020-11-20] MEDS ORDERED: GLUCOSE 4GM CHEW TABLET PO PRN (18:15)
[2020-11-20] MEDS ORDERED: cefTRIAXone SOD 1 GM in D5W MINI-BAG PLUS 50 ML IV SCH (18:15)
[2020-11-20] MEDS ORDERED: GLUCAGON INJ 1MG VIAL SC PRN (18:15)
[2020-11-20] MEDS ORDERED: DEXTROSE 50% 50 ML SYRINGE IV PRN (18:15)
[2020-11-20] MEDS ORDERED: AZITHROMYCIN INJ 500 MG, VIAL MATE ADAPTER 1 EACH in NS 250 ML IV ONE (18:50)
--- NOTE | 2020-11-20 20:19 | HPEPDOC ---
General Date of Admission November 20, 2020 Date of Service: November 20, 2020 Chief Complaint The patient is a 64-year-old male admitted with a reason for visit of Diff Breathing. Source: Patient History of Present Illness Mr. Jang is a 64 year old male with frequent COPD exacerbations who is here with worsening dyspnea. He was admitted from 08/12/20 to 08/16/20 for COPD exacerbation. He was admitted from 09/03/20 to 09/05/2020 for COPD exacerbation. He does not remember when he started to feel worsening dyspnea, but tells me that his PCP had ordered him prednisone and azithromycin. This did not help. He contacted his environmental planner who ordered a CXR. It was negative for pneumonia. His symptoms were not improving. He is okay when he is at rest, but tells me with activity, he desaturates into the 70s. He decided to come to the hospital for evaluation. While here, he was afebrile and is at 2.5L of oxygen which is his baseline. He has tachycardia, but most likely from breathing treatments. His lungs are tight and wheezy. Work up significant for leukocytosis with elevated eosinophils (5.7% and [address]). CT angio chest demonstrates no new findings. There is improvement in the patchy opacities since prior imaging. [place] He wonders sometimes if he has mold in the [place], but he is not sure. Otherwise, he has been smoking marijuana. Patient will be admitted for COPD exacerbation. Home Medications Scheduled Aspirin (Aspirin EC) 81 Mg Tablet.dr, 81 MG PO QHS, (Reported) Atorvastatin Calcium (Atorvastatin Calcium) 10 Mg Tab, 10 MG PO QHS, (Reported) Duloxetine Hcl (Duloxetine HCl) 30 Mg Cap, 60 MG PO QAM, (Reported) Duloxetine Hcl (Duloxetine HCl) 30 Mg Capsule.dr, 30 MG PO QHS, (Reported) Glimepiride (Glimepiride) 2 Mg Tablet, 2 MG PO BID, (Reported) Guaifenesin (Mucinex) 600 Mg Tab.er.12h, 600 MG PO BID, (Reported) Insulin Detemir (Levemir Flextouch) 100 Unit/1 Ml Insuln.pen, 1 DOSE SC QHS, (Reported) 10-15 UNITS DEPENDING ON BG READING Ipratropium/Albuterol Sulfate (Iprat-Albut 0.5-3(2.5) mg/3 ml) 3 Ml Ampul.neb, 1 VIAL INH TID, (Reported) Metoprolol Tartrate (Metoprolol Tartrate) 25 Mg Tablet, 25 MG PO BID, (Reported) Tamsulosin HCl (Flomax) 0.4 Mg Cap, 0.8 MG PO DAILY, (Reported) Scheduled PRN Albuterol Sulfate (Ventolin Hfa) 18 Gm Hfa.aer.ad, 2 PUFFS INH QID PRN for SHORTNESS OF BREATH, (Reported) Epinephrine (Epipen 2-Shashi) 0.3 Mg/0.3 Ml Inj, 0.3 MG INJ ASDIRECTED PRN for ANAPHYLAXIS, (Reported) Allergies Coded Allergies: Penicillins (Verified Allergy, Severe, anaphylaxis, 06/19/20) per Dr. Ricky sy (Verified Allergy, Intermediate, HIVES, 11/20/20) ibuprofen (Verified Allergy, Intermediate, face swelling, 11/20/20) [employer] bee venom protein (honey bee) (Verified Allergy, Unknown, 06/19/20) Past Medical History Medical History 1. COPD 2. HTN 3. Aortic stenosis 4. DLP 5. NIDDM2 6. Neuropathy 7. Essential tremors Surgical History 1. Umbilical hernia repair 2 2. Right-sided carpal tunnel release 3. Right-sided trigger finger release 4. Right fifth digit fracture 5. Bilateral tympanostomies as a child Family History Father: . History of lung cancer and COPD Mother: . History of lung cancer, pancreatic cancer, and COPD Social History * Smoker: former Smoker (Smoked for 25 years, quit in 2000, smoked 2ppd) Alcohol: Denies Drugs: marijuana (Medical marijuana for chronic pain) A-FIB/CHADSVASC A-FIB History Current/History of A-Fib/PAF?: No Review of Systems Constitutional: Denies: Chills, Fever Eyes: Denies: Vision change ENT: Denies: Sore Throat Skin: Denies: Rash Pulmonary: Reports: Dyspnea, Cough Cardiovascular: Denies: Chest Pain Gastrointestinal: Denies: Abdominal Pain, Diarrhea Genitourinary: Denies: Dysuria Hematologic: Denies: Bruising Neurological: Reports: Other Symptoms (Reports neuropathy in legs bilaterally) Psych: Reports: Anxiety, Depression Physical Examination General Exam: Positive: Alert, Cooperative Eye Exam: Positive: EOMI; Negative: Sclera icteric ENT Exam: Positive: Atraumatic Neck Exam: Positive: Supple Chest Exam: Positive: Wheezing, Diminished Heart Exam: Positive: Tachycardic, Regular Rhythm Abdomen Exam: Positive: Normal bowel sounds, Soft; Negative: Tenderness Extremity Exam: Positive: Edema (bilateral pitting edema) Neuro Exam: Positive: Normal Speech, Cranial Nerves 3-12 NL Psych Exam: Positive: Mental status NL, Mood NL Vital Signs Vital Signs Date Time Temp Pulse Resp B/P (MAP) Pulse Ox O2 Delivery O2 Flow Rate FiO2 11/20/20 17:06 104 21 93 Nasal Cannula 2.5 11/20/20 17:00 146/74 (98) 11/20/20 16:06 97.4 Laboratory Data Labs 24H Laboratory Tests 2 11/20/20 13:02: Immature Granulocyte % (Auto) 0.4, Neutrophils (%) (Auto) 72.5H, Lymphocytes (%) (Auto) 13.9L, Monocytes (%) (Auto) 6.4, Eosinophils (%) (Auto) 5.7H, Basophils (%) (Auto) 1.1H, Neutrophils # (Auto) 9.3H, Lymphocytes # (Auto) 1.8, Monocytes # (Auto) 0.8, Eosinophils # (Auto) 0.7H, Basophils # (Auto) 0.1, Nucleated Red Blood Cells % (auto) 0.0, Anion Gap 3L, Glomerular Filtration Rate > 60.0, Calcium Level 9.0, Total Bilirubin 0.4, Direct Bilirubin < 0.1, Aspartate Amino Transf (AST/SGOT) 22, Alanine Aminotransferase (ALT/SGPT) 25, Alkaline Phosphatase 117, Total Creatine Kinase 118, Creatine Kinase MB 3.5, Creatine Kinase MB Relative Index 2.97, Troponin I < 0.02, IP-Rdm-N-Type Natriuretic Peptide 36, Total Protein 7.2, Albumin 3.0L, Albumin/Globulin Ratio 0.7 11/20/20 13:29: Blood Gas Bicarbonate Standard 27.5H, Arterial Blood pH 7.459H, Arterial Blood Partial Pressure CO2 39.5, Arterial Blood Partial Pressure O2 100.7H, Arterial Blood Total CO2 28.6, Arterial Blood HCO3 27.4H, Arterial Blood Base Excess 3.4H, Arterial Blood Oxygen Saturation 98.1 CBC/BMP Laboratory Tests 5/5/21 13:02 Microbiology Microbiology 11/20/20 Respiratory Virus Panel (PCR) ([facility]) - Final, Complete Assessment/Plan Mr. Jang is a 64 year old male with frequent COPD exacerbations who is here with worsening dyspnea. He was admitted from 08/12/20 to 08/16/20 for COPD exacerbation. He was admitted from 09/03/20 to 09/05/2020 for COPD exacerbation. Patient will be put on IV steroids, azithromycin, and breathing treatments around the clock. 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 [place] and may have mold at home. Will initiate work up with IgE aspergillosis. Plan / VTE VTE Prophylaxis Ordered?: Yes Plan Plan 1. COPD exacerbation -Patient is at baseline oxygen with 2.5L of NC -Patient reports desaturation with ambulation -IV steroids, azithromycin, and scheduled and PRN breathing treatments -Incentive spirometry -Patient may have allergen at home causing frequent exacerbations. Another consideration would be smoking marijuana causing exacerbation -Will order IgE aspergillus to look for possible allergic bronchopulmonary aspergillosis as a cause for frequent exacerbation. Patient [place] and at risk for mold at home. 2. 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 BPH -Tamsulosin 4. Anxiety/Depression -Continue duloxetine 5. Dyslipidemia -Continue Atorvastatin 6. DVT ppx -Lovenox Disposition: Will have patient ambulate with physical therapy to look for desaturation BILLY ANDRE DO November 20, 2020 20:19
--- NOTE | 2020-11-20 20:31 | ECGEPIP ---
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
[2020-11-20 20:45] VITALS: BP 129/73
[2020-11-20] MEDS: IPRATROPIUM 0.5MG/ALBUTEROL 2.5MG INH SOL UD 3ML (DUONEB) NEB SCH (21:00)
[2020-11-20] MEDS: ATORVASTATIN 10 MG TAB PO SCH (21:35)
[2020-11-20] MEDS: ASPIRIN 81MG ENTERIC TABLET PO SCH (21:35)
[2020-11-20] MEDS: HumaLOG INSULIN (NovoLOG) PER UNIT SC SCH (21:36)
[2020-11-20] MEDS: guaiFENesin ER 600 MG TAB PO SCH (21:36)
[2020-11-20] MEDS: methylPREDNISolone 125MG 2ML VIAL IV SCH (21:36)
[2020-11-20] MEDS: DULoxetine 30 MG CAP (CYMBALTA) PO SCH (21:37)
[2020-11-20] MEDS: METOPROLOL TART 25 MG TABLET PO SCH (21:37)
[2020-11-20] MEDS: PERCOCET 5MG/325MG TAB PO PRN (21:38)
[2020-11-21] MEDS: IPRATROPIUM 0.5MG/ALBUTEROL 2.5MG INH SOL UD 3ML (DUONEB) NEB SCH ×6 (00:05→19:26)
[2020-11-21] MEDS: PERCOCET 5MG/325MG TAB PO PRN ×4 (01:44→23:19)
[2020-11-21] MEDS: methylPREDNISolone 125MG 2ML VIAL IV SCH ×3 (04:52→20:27)
[2020-11-21 05:00] VITALS: BP 143/104
[2020-11-21 07:29] LABS: HEMATOCRIT 41.9 % (42.0-52.0); HEMOGLOBIN 12.9 g/dl (13.5-17.5); MEAN CORPUSCULAR HEMOGLOBIN 25.7 pg (27.0-33.0); MEAN CORPUSCULAR HGB CONC 30.8 g/dl (32.0-36.5); MEAN CORPUSCULAR VOLUME 83.5 fl (80.0-96.0); PLATELET COUNT, AUTOMATED 513 10^3/uL (150-450); RED BLOOD COUNT 5.02 10^6/uL (4.30-6.10); WHITE BLOOD COUNT 12.6 10^3/uL (4.0-10.0)
[2020-11-21 08:10] LABS: BLOOD UREA NITROGEN 15 MG/DL (7-18); CALCIUM LEVEL 9.2 MG/DL (8.8-10.2); CARBON DIOXIDE LEVEL 32 MEQ/L (21-32); CHLORIDE LEVEL 101 MEQ/L (98-107); CREATININE FOR GFR 0.78 MG/DL (0.70-1.30); GLOMERULAR FILTRATION RATE > 60.0 (>49); GLUCOSE, FASTING 235 MG/DL (70-100); POTASSIUM SERUM 5.3 MEQ/L (3.5-5.1); SODIUM LEVEL 137 MEQ/L (136-145)
[2020-11-21] MEDS: ENOXAPARIN 40MG/0.4ML SYRINGE (J1650 PER 10MG) SC SCH (08:25)
[2020-11-21] MEDS: guaiFENesin ER 600 MG TAB PO SCH ×2 (08:25→20:27)
[2020-11-21] MEDS: HumaLOG INSULIN (NovoLOG) PER UNIT SC SCH ×4 (08:25→20:27)
[2020-11-21] MEDS: METOPROLOL TART 25 MG TABLET PO SCH ×2 (08:26→20:28)
[2020-11-21] MEDS: TAMSULOSIN 0.4 MG CAP PO SCH (08:27)
[2020-11-21] MEDS: DULoxetine 30 MG CAP (CYMBALTA) PO SCH ×2 (08:27→20:28)
[2020-11-21 14:55] VITALS: BP 116/66
--- NOTE | 2020-11-21 15:19 | IPNPDOC ---
Subjective Date Seen The patient was seen on 11/21/20. Subjective Chief Complaint/HPI Mr. Jang is a 64 year old male with frequent COPD exacerbations who is here with worsening dyspnea 2/2 COPD exacerbation. This morning denies chest pain. Still has hypoxia with exertion. He worked with physical therapy and with short distance dropped down to 84%. Objective Physical Examination General Exam: Positive: Alert, Cooperative Eye Exam: Positive: EOMI; Negative: Sclera icteric ENT Exam: Positive: Atraumatic Neck Exam: Positive: Supple Chest Exam: Positive: Diminished Heart Exam: Positive: Rate Normal, Regular Rhythm Abdomen Exam: Positive: Normal bowel sounds, Soft; Negative: Tenderness Extremity Exam: Positive: Edema (bilateral pitting edema) Neuro Exam: Positive: Normal Speech, Cranial Nerves 3-12 NL Psych Exam: Positive: Mental status NL, Mood NL Assessment /Plan Assessment Mr. Jang is a 64 year old male with frequent COPD exacerbations who is here with worsening dyspnea. He was admitted from 08/12/20 to 08/16/20 for COPD exacerbation. He was admitted from 09/03/20 to 09/05/2020 for COPD exacerbation. Patient will be put on IV steroids, azithromycin, and breathing treatments around the clock. 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 [place] and may have mold at home. Will initiate work up with IgE aspergillosis. Patient ambulated with physical therapy. With short distance, he desaturated down to 84%. Plan/VTE VTE Prophylaxis Ordered?: Yes Plan 1. COPD exacerbation -Patient is at baseline oxygen with 2.5L of NC -Patient desaturate down to 84% with short distance ambulation -IV steroids, azithromycin, and scheduled and PRN breathing treatments -Incentive spirometry -Patient may have allergen at home causing frequent exacerbations. Another consideration would be smoking marijuana causing exacerbation -Will order IgE aspergillus to look for possible allergic bronchopulmonary aspergillosis as a cause for frequent exacerbation. [place] and at risk for mold at home. 2. Chronic hypoxic respiratory failure in the setting of COPD -Chronically requires 2.5L of oxygen 3. Hypoxia with exertion -Patient desaturate down to 84% with short distance ambulation -Unlikely CHF. ProBNP of 36 4. 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 BPH -Tamsulosin 6. Anxiety/Depression -Continue duloxetine 7. Dyslipidemia -Continue Atorvastatin 8. DVT ppx -Lovenox Disposition: Pending clinical improvement. Still hypoxic with ambulation of short distances VS, I&O, 24H, Fishbone Vital Signs/I&O Vital Signs Date Time Temp Pulse Resp B/P (MAP) Pulse Ox O2 Delivery O2 Flow Rate FiO2 11/21/20 11:00 16 11/21/20 09:00 2.5 11/21/20 08:26 93 143/104 11/21/20 05:00 97.6 96 Nasal Cannula I&O- Last 24 Hours up to 6 AM 11/21/20 06:00 Intake Total 1022.5 ml Output Total 1050 ml Balance -27.5 ml Laboratory Data 24H LABS Laboratory Tests 2 11/20/20 21:01: Bedside Glucose (Misc Panel) 397H 11/21/20 07:03: 11/21/20 07:17: Nucleated Red Blood Cells % (auto) 0.0, Anion Gap 4L, Glomerular Filtration Rate > 60.0, Calcium Level 9.2 11/21/20 11:45: Bedside Glucose (Misc Panel) 260H CBC/BMP Laboratory Tests 11/21/20 07:17 Microbiology Microbiology 11/20/20 Respiratory Virus Panel (PCR) ([facility]) - Final, Complete BILLY ANDRE DO November 21, 2020 15:19
[2020-11-21] MEDS ORDERED: SOD POLYSTYRENE SULFONATE SUSP 15 GM/60 ML UD PO ONE (17:00)
[2020-11-21 19:58] VITALS: BP 114/65
[2020-11-21] MEDS: AZITHROMYCIN INJ 500 MG, VIAL MATE ADAPTER 1 EACH in NS 250 ML IV SCH (20:26)
[2020-11-21] MEDS: ASPIRIN 81MG ENTERIC TABLET PO SCH (20:27)
[2020-11-21] MEDS: ATORVASTATIN 10 MG TAB PO SCH (20:28)
[2020-11-22] MEDS: IPRATROPIUM 0.5MG/ALBUTEROL 2.5MG INH SOL UD 3ML (DUONEB) NEB SCH ×7 (00:14→23:46)
[2020-11-22] MEDS: PERCOCET 5MG/325MG TAB PO PRN ×2 (04:51→21:29)
[2020-11-22] MEDS: methylPREDNISolone 125MG 2ML VIAL IV SCH ×3 (04:51→21:30)
[2020-11-22 04:55] VITALS: BP 102/66
[2020-11-22 06:07] LABS: BASO % 0.1 % (0.0-1.0); HEMATOCRIT 38.9 % (42.0-52.0); HEMOGLOBIN 11.7 g/dl (13.5-17.5); LYMPH # 1.2 10^3/uL (1.5-5.0); LYMPH % 5.2 % (24.0-44.0); MEAN CORPUSCULAR HEMOGLOBIN 25.8 pg (27.0-33.0); MEAN CORPUSCULAR HGB CONC 30.1 g/dl (32.0-36.5); MEAN CORPUSCULAR VOLUME 85.7 fl (80.0-96.0); MONO # 0.7 10^3/uL (0.0-0.8); MONO % 3.1 % (2.0-8.0); NEUTROPHILS # 20.9 10^3/uL (1.5-8.5); NEUTROPHILS % 90.3 % (36.0-66.0); PLATELET COUNT, AUTOMATED 536 10^3/uL (150-450); RED BLOOD COUNT 4.54 10^6/uL (4.30-6.10); WHITE BLOOD COUNT 23.2 10^3/uL (4.0-10.0)
[2020-11-22 06:25] LABS: BLOOD UREA NITROGEN 20 MG/DL (7-18); CALCIUM LEVEL 8.4 MG/DL (8.8-10.2); CARBON DIOXIDE LEVEL 31 MEQ/L (21-32); CHLORIDE LEVEL 107 MEQ/L (98-107); CREATININE FOR GFR 0.93 MG/DL (0.70-1.30); GLOMERULAR FILTRATION RATE > 60.0 (>49); GLUCOSE, FASTING 261 MG/DL (70-100); POTASSIUM SERUM 4.5 MEQ/L (3.5-5.1); SODIUM LEVEL 143 MEQ/L (136-145)
[2020-11-22] MEDS: HumaLOG INSULIN (NovoLOG) PER UNIT SC SCH ×4 (07:47→21:28)
[2020-11-22] MEDS: ENOXAPARIN 40MG/0.4ML SYRINGE (J1650 PER 10MG) SC SCH (07:48)
[2020-11-22] MEDS: TAMSULOSIN 0.4 MG CAP PO SCH (07:48)
[2020-11-22] MEDS: guaiFENesin ER 600 MG TAB PO SCH ×2 (07:48→21:28)
[2020-11-22] MEDS: DULoxetine 30 MG CAP (CYMBALTA) PO SCH ×2 (07:48→21:28)
[2020-11-22 08:00] VITALS: BP 104/74
[2020-11-22] MEDS: METOPROLOL TART 25 MG TABLET PO SCH ×2 (08:43→21:29)
[2020-11-22 14:45] VITALS: BP 111/76
--- NOTE | 2020-11-22 15:29 | IPNPDOC ---
Subjective Date Seen The patient was seen on 11/22/20. Subjective Chief Complaint/HPI Mr. Jang is a 64 year old male with frequent COPD exacerbations who is here with worsening dyspnea 2/2 COPD exacerbation. This morning, he was trying to clean himself up, but was hypoxic during the activity and desaturated down tot he low 80s. Otherwise, he reports having essential tremors. He had tried propranolol in the past, but propranolol was thought to have worsened his COPD. In the afternoon, he still has the tremors. Discussed primidone with patient. He is agreeable to trying primidone. Objective Physical Examination General Exam: Positive: Alert, Cooperative Eye Exam: Positive: EOMI; Negative: Sclera icteric ENT Exam: Positive: Atraumatic Neck Exam: Positive: Supple Chest Exam: Positive: Diminished Heart Exam: Positive: Rate Normal, Regular Rhythm Abdomen Exam: Positive: Normal bowel sounds, Soft; Negative: Tenderness Extremity Exam: Positive: Edema (bilateral pitting edema) Neuro Exam: Positive: Normal Speech, Cranial Nerves 3-12 NL, Other (tremors in his arms and hands) Psych Exam: Positive: Mental status NL, Mood NL Assessment /Plan Assessment Mr. Jang is a 64 year old male with frequent COPD exacerbations who is here with worsening dyspnea. He was admitted from 08/12/20 to 08/16/20 for COPD exacerbation. He was admitted from 09/03/20 to 09/05/2020 for COPD exacerbation. Patient will be put on IV steroids, azithromycin, and breathing treatments around the clock. 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 [place] and may have mold at home. Will initiate work up with IgE aspergillosis. Patient ambulated with physical therapy. With short distance, he desaturated down to 84%. Otherwise, he has uncontrolled essential tremors. Tried propranolol in past, but stopped due to worsening COPD. Will try primidone. Plan/VTE VTE Prophylaxis Ordered?: Yes Plan 1. COPD exacerbation -Patient is at baseline oxygen with 2.5L of NC -Patient desaturate down to 84% with short distance ambulation -IV steroids, azithromycin, and scheduled and PRN breathing treatments -Incentive spirometry -Patient may have allergen at home causing frequent exacerbations. Another consideration would be smoking marijuana causing exacerbation -Will order IgE aspergillus to look for possible allergic bronchopulmonary aspergillosis as a cause for frequent exacerbation. Patient [place] and at risk for mold at home. 2. Chronic hypoxic respiratory failure in the setting of COPD -Chronically requires 2.5L of oxygen 3. Hypoxia with exertion -Patient desaturate down to 84% with short distance ambulation -Unlikely CHF. ProBNP of 36 4. Essential tremors -Was taken off propranolol due to worsening COPD -Try primidone 5. 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 BPH -Tamsulosin 7. Anxiety/Depression -Continue duloxetine 8. Dyslipidemia -Continue Atorvastatin 9. DVT ppx -Lovenox Disposition: Pending clinical improvement. Still hypoxic with ambulation of short distances VS, I&O, 24H, Fishbone Vital Signs/I&O Vital Signs Date Time Temp Pulse Resp B/P (MAP) Pulse Ox O2 Delivery O2 Flow Rate FiO2 11/22/20 14:45 98.2 121 18 111/76 (88) 93 Nasal Cannula 2.5 I&O- Last 24 Hours up to 6 AM 11/22/20 05:59 Intake Total 2055 ml Output Total 600 ml Balance 1455 ml Laboratory Data 24H LABS Laboratory Tests 2 11/21/20 16:31: Bedside Glucose (Misc Panel) 288H 11/21/20 20:03: Bedside Glucose (Misc Panel) 275H 11/22/20 05:22: Immature Granulocyte % (Auto) 1.3, Neutrophils (%) (Auto) 90.3H, Lymphocytes (%) (Auto) 5.2L, Monocytes (%) (Auto) 3.1, Eosinophils (%) (Auto) 0.0, Basophils (%) (Auto) 0.1, Neutrophils # (Auto) 20.9H, Lymphocytes # (Auto) 1.2L, Monocytes # (Auto) 0.7, Eosinophils # (Auto) 0.0, Basophils # (Auto) 0.0, Nucleated Red Blood Cells % (auto) 0.0, Anion Gap 5L, Glomerular Filtration Rate > 60.0, Calcium Level 8.4L 11/22/20 11:55: Bedside Glucose (Misc Panel) 237H CBC/BMP Laboratory Tests 11/22/20 05:22 Microbiology Microbiology 11/20/20 Respiratory Virus Panel (PCR) ([facility]) - Final, Complete BILLY ANDRE DO November 22, 2020 15:29
[2020-11-22] MEDS ORDERED: PILL CUTTER 1 EACH XX PRN (15:35)
[2020-11-22 20:21] VITALS: BP 109/74
[2020-11-22] MEDS: AZITHROMYCIN INJ 500 MG, VIAL MATE ADAPTER 1 EACH in NS 250 ML IV SCH (21:27)
[2020-11-22] MEDS: ASPIRIN 81MG ENTERIC TABLET PO SCH (21:28)
[2020-11-22] MEDS: ATORVASTATIN 10 MG TAB PO SCH (21:28)
[2020-11-22] MEDS: PRIMIDONE 50 MG TAB PO SCH (21:30)
[2020-11-23] MEDS: PERCOCET 5MG/325MG TAB PO PRN ×3 (03:08→20:55)
[2020-11-23] MEDS: IPRATROPIUM 0.5MG/ALBUTEROL 2.5MG INH SOL UD 3ML (DUONEB) NEB SCH ×5 (04:39→21:05)
[2020-11-23] MEDS: methylPREDNISolone 125MG 2ML VIAL IV SCH ×3 (04:53→20:54)
[2020-11-23 06:00] VITALS: BP 140/83
[2020-11-23 06:03] LABS: HEMATOCRIT 36.8 % (42.0-52.0); HEMOGLOBIN 11.3 g/dl (13.5-17.5); MEAN CORPUSCULAR HGB CONC 30.7 g/dl (32.0-36.5); MEAN CORPUSCULAR VOLUME 84.8 fl (80.0-96.0); PLATELET COUNT, AUTOMATED 468 10^3/uL (150-450); RED BLOOD COUNT 4.34 10^6/uL (4.30-6.10); WHITE BLOOD COUNT 18.1 10^3/uL (4.0-10.0)
[2020-11-23 06:28] LABS: BLOOD UREA NITROGEN 19 MG/DL (7-18); CALCIUM LEVEL 8.7 MG/DL (8.8-10.2); CARBON DIOXIDE LEVEL 30 MEQ/L (21-32); CHLORIDE LEVEL 107 MEQ/L (98-107); CREATININE FOR GFR 0.88 MG/DL (0.70-1.30); GLOMERULAR FILTRATION RATE > 60.0 (>49); GLUCOSE, FASTING 284 MG/DL (70-100); POTASSIUM SERUM 4.6 MEQ/L (3.5-5.1); SODIUM LEVEL 140 MEQ/L (136-145)
[2020-11-23] MEDS: HumaLOG INSULIN (NovoLOG) PER UNIT SC SCH ×4 (08:00→20:54)
[2020-11-23] MEDS: DULoxetine 30 MG CAP (CYMBALTA) PO SCH ×2 (08:37→20:52)
[2020-11-23] MEDS: TAMSULOSIN 0.4 MG CAP PO SCH (08:38)
[2020-11-23] MEDS: guaiFENesin ER 600 MG TAB PO SCH ×2 (08:39→20:54)
[2020-11-23] MEDS: ENOXAPARIN 40MG/0.4ML SYRINGE (J1650 PER 10MG) SC SCH (08:42)
[2020-11-23] MEDS: METOPROLOL TART 25 MG TABLET PO SCH ×2 (08:42→20:53)
--- NOTE | 2020-11-23 11:52 | IPNPDOC ---
Subjective Date Seen The patient was seen on 11/23/20. Subjective Chief Complaint/HPI Mr. Jang is a 64 year old male with frequent COPD exacerbations who is here with worsening dyspnea 2/2 COPD exacerbation. This morning, he was seen standing up. He has some expiratory wheezes. Will continue with IV steroids. Otherwise, he feels that his tremors are slightly better. Will continue with primidone. Objective Physical Examination General Exam: Positive: Alert, Cooperative Eye Exam: Positive: EOMI; Negative: Sclera icteric ENT Exam: Positive: Atraumatic Neck Exam: Positive: Supple Chest Exam: Positive: Diminished Heart Exam: Positive: Rate Normal, Regular Rhythm Abdomen Exam: Positive: Normal bowel sounds, Soft; Negative: Tenderness Extremity Exam: Positive: Edema (bilateral pitting edema) Neuro Exam: Positive: Normal Speech, Cranial Nerves 3-12 NL, Other (tremors in his arms and hands) Psych Exam: Positive: Mental status NL, Mood NL Assessment /Plan Assessment Mr. Jang is a 64 year old male with frequent COPD exacerbations who is here with worsening dyspnea. He was admitted from 08/12/20 to 08/16/20 for COPD exacerbation. He was admitted from 09/03/20 to 09/05/2020 for COPD exacerbation. Patient will be put on IV steroids, azithromycin, and breathing treatments around the clock. 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 He lives [place] and may have mold at home. Will initiate work up with IgE aspergillosis. Patient ambulated with physical therapy. With short distance, he desaturated down to 84%. Otherwise, he has uncontrolled essential tremors. Tried propranolol in past, but stopped due to worsening COPD. Will try primidone. Plan/VTE VTE Prophylaxis Ordered?: Yes Plan 1. COPD exacerbation -Patient is at baseline oxygen with 2.5L of [place] -Patient desaturate down to 84% with short distance ambulation -IV steroids, azithromycin, and scheduled and PRN breathing treatments -Incentive spirometry -Patient may have allergen at home causing frequent exacerbations. Another consideration would be smoking marijuana causing exacerbation -Will order IgE aspergillus to look for possible allergic bronchopulmonary aspergillosis as a cause for frequent exacerbation. Patient lives near [place] and at risk for mold at home. 2. Chronic hypoxic respiratory failure in the setting of COPD -Chronically requires 2.5L of oxygen 3. Hypoxia with exertion -Patient desaturate down to 84% with short distance ambulation -Unlikely CHF. ProBNP of 36 4. Essential tremors -Was taken off propranolol due to worsening COPD -Try primidone 5. 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 BPH -Tamsulosin 7. Anxiety/Depression -Continue duloxetine 8. Dyslipidemia -Continue Atorvastatin 9. DVT ppx -Lovenox Disposition: Pending clinical improvement VS, I&O, 24H, Fishbone Vital Signs/I&O Vital Signs Date Time Temp Pulse Resp B/P (MAP) Pulse Ox O2 Delivery O2 Flow Rate FiO2 11/23/20 09:00 2.0 11/23/20 08:42 100 140/83 11/23/20 06:00 98.1 18 2 Nasal Cannula I&O- Last 24 Hours up to 6 AM 11/23/20 06:00 Intake Total 2875 ml Output Total 1975 ml Balance 900 ml Laboratory Data 24H LABS Laboratory Tests 2 11/22/20 11:55: Bedside Glucose (Misc Panel) 237H 11/22/20 17:15: Bedside Glucose (Misc Panel) 297H 11/22/20 20:20: Bedside Glucose (Misc Panel) 319H 11/23/20 05:37: Nucleated Red Blood Cells % (auto) 0.0, Anion Gap 3L, Glomerular Filtration Rate > 60.0, Calcium Level 8.7L 11/23/20 11:31: Bedside Glucose (Misc Panel) 270H CBC/BMP Laboratory Tests 11/23/20 05:37 Microbiology Microbiology 11/20/20 Respiratory Virus Panel (PCR) ([facility]) - Final, Complete BILLY ANDRE DO November 23, 2020 11:52
[2020-11-23 14:00] VITALS: BP 133/88
[2020-11-23 20:35] VITALS: BP 143/89
[2020-11-23] MEDS: ATORVASTATIN 10 MG TAB PO SCH (20:52)
[2020-11-23] MEDS: AZITHROMYCIN INJ 500 MG, VIAL MATE ADAPTER 1 EACH in NS 250 ML IV SCH (20:52)
[2020-11-23] MEDS: PRIMIDONE 50 MG TAB PO SCH (20:53)
[2020-11-23] MEDS: LEVEMIR (INSULIN DETEMIR) 1 UNITS/0.01ML SC SCH (20:54)
[2020-11-23] MEDS: ASPIRIN 81MG ENTERIC TABLET PO SCH (20:56)
[2020-11-24] MEDS: PERCOCET 5MG/325MG TAB PO PRN ×5 (00:39→20:16)
[2020-11-24] MEDS: IPRATROPIUM 0.5MG/ALBUTEROL 2.5MG INH SOL UD 3ML (DUONEB) NEB SCH ×6 (00:50→18:10)
[2020-11-24] MEDS ORDERED: PERCOCET 5MG/325MG TAB PO ONE (02:25)
[2020-11-24] MEDS: MORPHINE 2 MG/ML 1ML VIAL (J2270) IV PRN (02:41)
[2020-11-24] MEDS: methylPREDNISolone 125MG 2ML VIAL IV SCH ×3 (04:41→20:17)
[2020-11-24 05:55] LABS: HEMOGLOBIN 11.7 g/dl (13.5-17.5); MEAN CORPUSCULAR HEMOGLOBIN 25.8 pg (27.0-33.0); MEAN CORPUSCULAR HGB CONC 30.8 g/dl (32.0-36.5); MEAN CORPUSCULAR VOLUME 83.7 fl (80.0-96.0); PLATELET COUNT, AUTOMATED 474 10^3/uL (150-450); RED BLOOD COUNT 4.54 10^6/uL (4.30-6.10); WHITE BLOOD COUNT 19.7 10^3/uL (4.0-10.0)
[2020-11-24 06:00] VITALS: BP 138/76
[2020-11-24 06:15] LABS: BLOOD UREA NITROGEN 19 MG/DL (7-18); CALCIUM LEVEL 8.6 MG/DL (8.8-10.2); CARBON DIOXIDE LEVEL 29 MEQ/L (21-32); CHLORIDE LEVEL 102 MEQ/L (98-107); CREATININE FOR GFR 0.86 MG/DL (0.70-1.30); GLOMERULAR FILTRATION RATE > 60.0 (>49); GLUCOSE, FASTING 277 MG/DL (70-100); POTASSIUM SERUM 4.4 MEQ/L (3.5-5.1); SODIUM LEVEL 136 MEQ/L (136-145)
[2020-11-24 07:34] LABS: NT-PRO BNP 786 PG/ML (<125)
[2020-11-24] MEDS: HumaLOG INSULIN (NovoLOG) PER UNIT SC SCH ×4 (08:47→20:17)
[2020-11-24] MEDS: ENOXAPARIN 40MG/0.4ML SYRINGE (J1650 PER 10MG) SC SCH (08:49)
[2020-11-24] MEDS: METOPROLOL TART 25 MG TABLET PO SCH ×2 (08:49→20:15)
[2020-11-24] MEDS: DULoxetine 30 MG CAP (CYMBALTA) PO SCH ×2 (08:50→20:15)
[2020-11-24] MEDS: guaiFENesin ER 600 MG TAB PO SCH ×2 (08:50→20:15)
[2020-11-24] MEDS: TAMSULOSIN 0.4 MG CAP PO SCH (08:50)
[2020-11-24] MEDS ORDERED: FUROSEMIDE 40MG/4ML VIAL (J1940) IV ONE (09:00)
[2020-11-24 14:00] VITALS: BP 120/76
[2020-11-24] MEDS: ASPIRIN 81MG ENTERIC TABLET PO SCH (20:14)
[2020-11-24] MEDS: AZITHROMYCIN INJ 500 MG, VIAL MATE ADAPTER 1 EACH in NS 250 ML IV SCH (20:14)
[2020-11-24] MEDS: PRIMIDONE 50 MG TAB PO SCH (20:15)
[2020-11-24] MEDS: ATORVASTATIN 10 MG TAB PO SCH (20:15)
[2020-11-24] MEDS: LEVEMIR (INSULIN DETEMIR) 1 UNITS/0.01ML SC SCH (20:16)
--- NOTE | 2020-11-24 20:40 | IPNPDOC ---
Subjective Date Seen The patient was seen on 11/24/20. Subjective Chief Complaint/HPI Mr. Jang is a 64 year old male with frequent COPD exacerbations who is here with worsening dyspnea 2/2 COPD exacerbation. He is still hypoxic with activity. His BNP is elevated today. Will start him on diuretics. Objective Physical Examination General Exam: Positive: Alert, Cooperative Eye Exam: Positive: EOMI; Negative: Sclera icteric ENT Exam: Positive: Atraumatic Neck Exam: Positive: Supple Chest Exam: Positive: Diminished Heart Exam: Positive: Rate Normal, Regular Rhythm Abdomen Exam: Positive: Normal bowel sounds, Soft; Negative: Tenderness Extremity Exam: Positive: Edema (bilateral pitting edema) Neuro Exam: Positive: Normal Speech, Cranial Nerves 3-12 NL, Other (tremors in his arms and hands) Psych Exam: Positive: Mental status NL, Mood NL Assessment /Plan Assessment Mr. Jang is a 64 year old male with frequent COPD exacerbations who is here with worsening dyspnea. He was admitted from 08/12/20 to 08/16/20 for COPD exacerbation. He was admitted from 09/03/20 to 09/05/2020 for COPD exacerbation. Patient will be put on IV steroids, azithromycin, and breathing treatments around the clock. 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 [place] and may have mold at home. Will initiate work up with IgE aspergillosis. Patient ambulated with physical therapy. With short distance, he desaturated down to 84%. Otherwise, he has uncontrolled essential tremors. Tried propranolol in past, but stopped due to worsening COPD. Will try primidone. Plan/VTE VTE Prophylaxis Ordered?: Yes Plan 1. COPD exacerbation -Patient is at baseline oxygen with 2.5L of [place] -Patient desaturate down to 84% with short distance ambulation -IV steroids, azithromycin, and scheduled and PRN breathing treatments -Incentive spirometry -Patient may have allergen at home causing frequent exacerbations. Another consideration would be smoking marijuana causing exacerbation -Will order IgE aspergillus to look for possible allergic bronchopulmonary aspergillosis as a cause for frequent exacerbation. Patient [place] and at risk for mold at home. 2. Chronic hypoxic respiratory failure in the setting of COPD -Chronically requires 2.5L of oxygen 3. Hypoxia with exertion -Patient desaturate down to 84% with short distance ambulation -Possible CHF. On admission ProBNP of 36. On 11/24, ProBNP 786 -Gave 40mg IV Lasix on 11/24. Will re-evaluate tomorrow to see if he still need more Lasix 4. Essential tremors -Was taken off propranolol due to worsening COPD -Try primidone 5. 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 BPH -Tamsulosin 7. Anxiety/Depression -Continue duloxetine 8. Dyslipidemia -Continue Atorvastatin 9. DVT ppx -Lovenox Disposition: Pending clinical improvement VS, I&O, 24H, Fishbone Vital Signs/I&O Vital Signs Date Time Temp Pulse Resp B/P (MAP) Pulse Ox O2 Delivery O2 Flow Rate FiO2 11/24/20 20:16 112 18 93 Nasal Cannula 2.0 11/24/20 20:15 128/76 11/24/20 14:00 98.2 I&O- Last 24 Hours up to 6 AM 11/24/20 06:00 Intake Total 2715 ml Output Total 3100 ml Balance -385 ml Laboratory Data 24H LABS Laboratory Tests 2 11/24/20 05:25: Nucleated Red Blood Cells % (auto) 0.0, Anion Gap 5L, Glomerular Filtration Rate > 60.0, Calcium Level 8.6L, DI-Ptj-C-Type Natriuretic Peptide 786H 11/24/20 11:31: Bedside Glucose (Misc Panel) 364H 11/24/20 16:29: Bedside Glucose (Misc Panel) 254H 11/24/20 19:25: Bedside Glucose (Misc Panel) 269H CBC/BMP Laboratory Tests 11/24/20 05:25 Microbiology Microbiology 11/20/20 Respiratory Virus Panel (PCR) ([facility]) - Final, Complete BILLY ANDRE DO November 24, 2020 20:40
[2020-11-24 22:00] VITALS: BP 128/76
[2020-11-25] MEDS: IPRATROPIUM 0.5MG/ALBUTEROL 2.5MG INH SOL UD 3ML (DUONEB) NEB SCH ×6 (00:09→20:07)
[2020-11-25] MEDS: PERCOCET 5MG/325MG TAB PO PRN ×2 (03:35→08:23)
[2020-11-25] MEDS: methylPREDNISolone 125MG 2ML VIAL IV SCH ×2 (04:46→17:30)
[2020-11-25 06:00] VITALS: BP 113/71
[2020-11-25 07:13] LABS: HEMATOCRIT 38.4 % (42.0-52.0); HEMOGLOBIN 12.2 g/dl (13.5-17.5); MEAN CORPUSCULAR HEMOGLOBIN 26.4 pg (27.0-33.0); MEAN CORPUSCULAR HGB CONC 31.8 g/dl (32.0-36.5); MEAN CORPUSCULAR VOLUME 83.1 fl (80.0-96.0); PLATELET COUNT, AUTOMATED 481 10^3/uL (150-450); RED BLOOD COUNT 4.62 10^6/uL (4.30-6.10)
[2020-11-25 07:48] LABS: BLOOD UREA NITROGEN 26 MG/DL (7-18); CALCIUM LEVEL 9.1 MG/DL (8.8-10.2); CARBON DIOXIDE LEVEL 30 MEQ/L (21-32); CHLORIDE LEVEL 104 MEQ/L (98-107); CREATININE FOR GFR 0.89 MG/DL (0.70-1.30); GLOMERULAR FILTRATION RATE > 60.0 (>49); GLUCOSE, FASTING 256 MG/DL (70-100); POTASSIUM SERUM 4.9 MEQ/L (3.5-5.1); SODIUM LEVEL 139 MEQ/L (136-145)
[2020-11-25] MEDS: HumaLOG INSULIN (NovoLOG) PER UNIT SC SCH ×4 (08:21→21:04)
[2020-11-25] MEDS: TAMSULOSIN 0.4 MG CAP PO SCH (08:21)
[2020-11-25] MEDS: DULoxetine 30 MG CAP (CYMBALTA) PO SCH ×2 (08:22→21:05)
[2020-11-25] MEDS: guaiFENesin ER 600 MG TAB PO SCH ×2 (08:22→21:04)
[2020-11-25] MEDS: ENOXAPARIN 40MG/0.4ML SYRINGE (J1650 PER 10MG) SC SCH (08:22)
[2020-11-25] MEDS: METOPROLOL TART 25 MG TABLET PO SCH ×2 (08:22→21:04)
[2020-11-25] MEDS: FUROSEMIDE 40MG/4ML VIAL (J1940) IV SCH (12:53)
[2020-11-25 14:00] VITALS: BP 127/76
[2020-11-25] MEDS: NORCO, ANEXSIA 5/325MG TABLET (HYDROcodone/ACETAMINOPHEN) PO PRN (15:37)
--- NOTE | 2020-11-25 19:29 | IPNPDOC ---
Subjective Date Seen The patient was seen on 11/25/20. Subjective Chief Complaint/HPI Mr. Jang is a 64 year old male with frequent COPD exacerbations who is here with worsening dyspnea 2/2 COPD exacerbation. Patient denies any chest pain. Patient does become hypoxic with activity, but has been improving. Physical therapy worked with patient and patient was able to maintain saturations at 88%. He did drop down to 86%. Physical therapy can potentially clear patient tomorrow. Otherwise, he feels that his tremors are getting better. May be steroid related. Will taper Solumedrol from 60mg TID to 60mg BID and increase primidone from 25mg qHS to 50mg BID. Will give IV Lasix to make him more dry. Objective Physical Examination General Exam: Positive: Alert, Cooperative Eye Exam: Positive: EOMI; Negative: Sclera icteric ENT Exam: Positive: Atraumatic Neck Exam: Positive: Supple Chest Exam: Positive: Diminished Heart Exam: Positive: Rate Normal, Regular Rhythm Abdomen Exam: Positive: Normal bowel sounds, Soft; Negative: Tenderness Extremity Exam: Positive: Edema (bilateral pitting edema) Neuro Exam: Positive: Normal Speech, Cranial Nerves 3-12 NL, Other (tremors in his arms and hands) Psych Exam: Positive: Mental status NL, Mood NL Assessment /Plan Assessment Mr. Jang is a 64 year old male with frequent COPD exacerbations who is here with worsening dyspnea. He was admitted from 08/12/20 to 08/16/20 for COPD exacerbation. He was admitted from 09/03/20 to 09/05/2020 for COPD exacerbation. Patient will be put on IV steroids, azithromycin, and breathing treatments around the clock. 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 [place] and may have mold at home. Will initiate work up with IgE aspergillosis. Patient ambulated with physical therapy. With short distance, he desaturated down to 84%. Patient is still desaturating but improved since prior. Physical therapy can potentially clear patient tomorrow. Hypoxia on exertion may be relat ed to fluid retention. Will give IV lasix while inpatient. Otherwise, he has uncontrolled essential tremors. Tried propranolol in past, but stopped due to worsening COPD. Steroids may have been making his tremors worse. Has some improvement with Primidone. Will increase Primidone. Plan/VTE VTE Prophylaxis Ordered?: Yes Plan 1. COPD exacerbation -Patient is at baseline oxygen with 2.5L of NC -Patient desaturate down to 84% with short distance ambulation -IV steroids, azithromycin, and scheduled and PRN breathing treatments. Completed 5 days of azithromycin -Incentive spirometry -Patient may have allergen at home causing frequent exacerbations. Another consideration would be smoking marijuana causing exacerbation -Will order IgE aspergillus to look for possible allergic bronchopulmonary aspergillosis as a cause for frequent exacerbation. Patient [place] and at risk for mold at home. 2. Chronic hypoxic respiratory failure in the setting of COPD -Chronically requires 2.5L of oxygen 3. Hypoxia with exertion -Patient desaturate down to 84% with short distance ambulation -Possible CHF. On admission ProBNP of 36. On 11/24, ProBNP 786 -Gave 40mg IV Lasix on 11/24 with improvement in exertion today. Will continue with IV Lasix to help with hypoxia with exertion 4. Essential tremors -Was taken off propranolol due to worsening COPD -Increase primidone from 25mg to 50mg -Weaning Steroids as Steroids may be contributing to tremors 5. Diabetes mellitus complicated by neuropathy -Sliding scale insulin and carbohydrate consistent diet -Patient does not want to try gabapentin, pregabalin, or amitriptyline -Patient requests Vicodin instead of Percocet. On discharge, patient does not want any Vicodin. -Patient uses marijuana at home to help with neuropathy 6. BPH -Tamsulosin 7. Anxiety/Depression -Continue duloxetine 8. Dyslipidemia -Continue Atorvastatin 9. DVT ppx -Lovenox Disposition: Pending clinical improvement. Physical therapy may be able to clear patient tomorrow. VS, I&O, 24H, Fishbone Vital Signs/I&O Vital Signs Date Time Temp Pulse Resp B/P (MAP) Pulse Ox O2 Delivery O2 Flow Rate FiO2 11/25/20 16:07 17 11/25/20 14:00 97.8 103 127/76 (93) 92 Nasal Cannula 2.0 I&O- Last 24 Hours up to 6 AM 11/25/20 06:00 Intake Total 1675 ml Output Total 3200 ml Balance -1525 ml Laboratory Data 24H LABS Laboratory Tests 2 11/24/20 19:25: Bedside Glucose (Misc Panel) 269H 11/25/20 07:04: Nucleated Red Blood Cells % (auto) 0.0, Anion Gap 5L, Glomerular Filtration Rate > 60.0, Calcium Level 9.1 11/25/20 11:28: Bedside Glucose (Misc Panel) 342H 11/25/20 16:44: Bedside Glucose (Misc Panel) 260H CBC/BMP Laboratory Tests 11/25/20 07:04 Microbiology Microbiology 11/20/20 Respiratory Virus Panel (PCR) ([facility]) - Final, Complete BILLY ANDRE DO November 25, 2020 19:29
[2020-11-25] MEDS ORDERED: PRIMIDONE 50 MG TAB PO SCH (21:00)
[2020-11-25] MEDS: LEVEMIR (INSULIN DETEMIR) 1 UNITS/0.01ML SC SCH (21:03)
[2020-11-25] MEDS: ASPIRIN 81MG ENTERIC TABLET PO SCH (21:04)
[2020-11-25] MEDS: ATORVASTATIN 10 MG TAB PO SCH (21:05)
[2020-11-25] MEDS: MORPHINE 2 MG/ML 1ML VIAL (J2270) IV PRN (21:05)
[2020-11-25 22:00] VITALS: BP 126/77
[2020-11-26] MEDS: IPRATROPIUM 0.5MG/ALBUTEROL 2.5MG INH SOL UD 3ML (DUONEB) NEB SCH ×3 (00:42→07:18)
[2020-11-26] MEDS: methylPREDNISolone 125MG 2ML VIAL IV SCH (04:21)
[2020-11-26 06:00] VITALS: BP 124/88
[2020-11-26 06:55] LABS: HEMATOCRIT 39.3 % (42.0-52.0); HEMOGLOBIN 12.2 g/dl (13.5-17.5); MEAN CORPUSCULAR VOLUME 83.6 fl (80.0-96.0); PLATELET COUNT, AUTOMATED 457 10^3/uL (150-450); WHITE BLOOD COUNT 17.6 10^3/uL (4.0-10.0)
[2020-11-26 07:28] LABS: BLOOD UREA NITROGEN 28 MG/DL (7-18); CALCIUM LEVEL 8.6 MG/DL (8.8-10.2); CARBON DIOXIDE LEVEL 33 MEQ/L (21-32); CHLORIDE LEVEL 102 MEQ/L (98-107); GLOMERULAR FILTRATION RATE > 60.0 (>49); GLUCOSE, FASTING 230 MG/DL (70-100); POTASSIUM SERUM 4.6 MEQ/L (3.5-5.1); SODIUM LEVEL 139 MEQ/L (136-145)
[2020-11-26] MEDS: DULoxetine 30 MG CAP (CYMBALTA) PO SCH (08:00)
[2020-11-26] MEDS: NORCO, ANEXSIA 5/325MG TABLET (HYDROcodone/ACETAMINOPHEN) PO PRN ×2 (08:02)
[2020-11-26 08:03] VITALS: BP 124/88
[2020-11-26] MEDS: ENOXAPARIN 40MG/0.4ML SYRINGE (J1650 PER 10MG) SC SCH (08:03)
[2020-11-26] MEDS: TAMSULOSIN 0.4 MG CAP PO SCH (08:03)
[2020-11-26] MEDS: guaiFENesin ER 600 MG TAB PO SCH (08:03)
[2020-11-26] MEDS: METOPROLOL TART 25 MG TABLET PO SCH (08:03)
[2020-11-26] MEDS: FUROSEMIDE 40MG/4ML VIAL (J1940) IV SCH (08:04)
[2020-11-26] MEDS: HumaLOG INSULIN (NovoLOG) PER UNIT SC SCH ×2 (08:04→12:54)
[2020-11-26 10:08] LABS: M003-IGE ASPERGILLUS fumigatus <0.10 kU/L (Class 0)
[2020-11-26] MEDS ORDERED: MYSO50TA5 PO (10:15)
[2020-11-26] MEDS ORDERED: LASI40TA9 PO (10:15)
[2020-11-26] MEDS ORDERED: PRED10TA2 PO (10:15)
--- NOTE | 2020-11-26 10:58 | IPNPDOC ---
Text Note Date of Service The patient was seen on 11/26/20. NOTE Subjective: -No acute events Objective: General: Alert, Cooperative, AOx3 Eye Exam: EOMI, anicteric ENT: Atraumatic, MMM Neck: Supple Chest: Diminished but without crackles or wheezing at this time Heart: Rate Normal, Regular Rhythm Abdomen: Normal bowel sounds, Soft, NTND Extremities: Has bilateral pitting rafal, otherwise WWP Neuro: Normal Speech, Cranial Nerves 3-12 NL, has a mild bilateral UE rest tremor Psych: Mental status NL, Mood NL, AOx3 Labs: Reviewed WB C17.6 Hgb 12.2 platelets 457 na 139 K 4.6 Cr 0.9 Assessment: 64 year old M with frequent COPD exacerbations who was admitted for the same now improved with steroid therapy and antibiotics that were eventually discontinued without evidence of CAP. COPD exacerbation -Patient is at baseline oxygen with 2.5L of [place] -Patient desaturate down to 84% with short distance ambulation -IV steroids, azithromycin, and scheduled and PRN breathing treatments. Completed 5 days of azithromycin -Incentive spirometry -continue steroid taper -Patient may have allergen at home causing frequent exacerbations. Another very possible consideration would be smoking marijuana causing exacerbation -Dr. Little ordered IgE aspergillus to look for possible allergic bronchopulmonary aspergillosis as a cause for frequent exacerbation. -needs pulm O/P follow up Chronic hypoxic respiratory failure in the setting of COPD -Chronically requires 2.5L of oxygen -Patient ambulated with physical therapy. With short distance, he desaturated down to 84%. Patient is still desaturating but improved since prior. -Hypoxemia on exertion may be related to fluid retention. Was gettubg IV lasix while inpatient and now switching to PO lasix. -continue steroid taper Essential tremors -Was taken off propranolol due to worsening COPD -Dr. Little increased primidone from 25mg to 50mg -Weaning Steroids Diabetes mellitus complicated by neuropathy -Sliding scale insulin and carbohydrate consistent diet -Patient does not want to try gabapentin, pregabalin, or amitriptyline -Patient requests Vicodin instead of Percocet. On discharge, patient does not want any Vicodin. -Patient uses marijuana at home to help with neuropathy BPH -Tamsulosin Anxiety/Depression -Continue duloxetine Dyslipidemia -Continue Atorvastatin DVT ppx -Lovenox Disposition: Pending clinical improvement. Physical therapy ongoing VS,Fishbone, I+O VS, Fishbone, I+O Laboratory Tests 11/26/20 06:22 Vital Signs Date Time Temp Pulse Resp B/P (MAP) Pulse Ox O2 Delivery O2 Flow Rate FiO2 11/26/20 08:03 89 124/88 11/26/20 08:02 16 92 Nasal Cannula 2.0 11/26/20 06:00 97.0 I&O- Last 24 Hours up to 6 AM 11/26/20 06:00 Intake Total 1530 ml Output Total 1825 ml Balance -295 ml ALBERT FERREIRA MD November 26, 2020 09:37
--- NOTE | 2020-11-26 10:58 | DS.PDOC ---
Discharge Summary General Date of Admission November 20, 2020 at 18:11 Date of Discharge 11/26/2020 Attending Physician: ALBERT FERREIRA MD Discharge Summary PROCEDURES PERFORMED DURING STAY: None ADMITTING DIAGNOSES: COPD exacerbation DISCHARGE DIAGNOSES: 1. COPD exacerbation 2. HTN 3. Aortic stenosis 4. DLP 5. NIDDM2 6. Neuropathy 7. Essential tremors 8. Acute on chronic hypoxemic respiratory failure COMPLICATIONS/CHIEF COMPLAINT: Copd With Acute Exacerbation. HISTORY OF PRESENT ILLNESS: 64 year old M with frequent COPD exacerbations who presented with worsening dysp stefania. He was admitted from 08/12/20 to 08/16/20 for COPD exacerbation and was also admitted from 09/03/20 to 09/05/2020 for COPD exacerbation. He does not remember when he started to feel worsening dyspnea, but reported that his PCP had ordered him prednisone and azithromycin and it did not help. He contacted his merchandising director who ordered a CXR that was negative for pneumonia. His symptoms were not improving however and reported desaturation into the 70s with exertion. He decided to come to the hospital for evaluation. HOSPITAL COURSE: In the ED, he was afebrile and was at 2.5L of oxygen which is his baseline. He was tachycardic, but most likely from breathing treatments. His lungs were tight and wheezy and work up significant for leukocytosis with elevated eosinophils (5.7% and [address] angio chest demonstrates no new findings without a pulmonary embolism and noted improvement in the patchy opacities since prior imaging. [place] and wonders sometimes if he has mold in the [place], but he is not sure. Otherwise, he chronically smokes marijuana for chronic pain. He was admitted for COPD exacerbation and treated with steroids therapy, and antibiotics that were quickly discontinued when he was noted to not have evidence of bacterial pneumonia. He also had some IV lasix for potential contribution from mild pulmon singh edema. He is now being discharged home on a steroid taper with close pulm follow up and PCP follow up. Of note. Dr. Little did order IgE testing for potential aspergillus that is pending. DISCHARGE MEDICATIONS: Please see below. ALLERGIES: Please see below. PHYSICAL EXAMINATION ON DISCHARGE: VITAL SIGNS: Please see below. General: Alert, Cooperative, AOx3 Eye Exam: EOMI, anicteric ENT: Atraumatic, MMM Neck: Supple Chest: Diminished but without crackles or wheezing at this time Heart: Rate Normal, Regular Rhythm Abdomen: Normal bowel sounds, Soft, NTND Extremities: Has bilateral pitting rafal, otherwise WWP Neuro: Normal Speech, Cranial Nerves 3-12 NL, has a mild bilateral UE rest tremor Psych: Mental status NL, Mood NL, AOx3 LABORATORY DATA: Please see below. IMAGING: CTA chest: There is excellent visualization of the pulmonary arterial vasculature. There are no focal filling defects present that would be considered consistent with acute pulmonary emboli. There are no pleural or pericardial effusions. There is an enlarged subcarinal lymph node which is stable. There is no hilar adenopathy. The imaged upper abdomen and imaged osseous structures are unchanged. Note is again made of a Bochdalek's hernia on the right status quo. There is no change in the imaged osseous structures. Evaluation of the lung crowe shows improvement of the patchy opacities seen on the prior exam. No new abnormal opacities have developed. IMPRESSION: 1. There is no evidence of a pulmonary embolus. 2. Improved abnormal lung opacities but with a rather significant residual. Follow-up to resolution should be considered. 3. Enlarged subcarinal lymph node status quo. 4. Other findings as described above. LE doppler venous US: Real time compression and duplex Doppler interrogation of the bilateral lower extremity deep venous system is performed. FINDINGS: Bilaterally, the common femoral, superficial femoral and popliteal veins are fully compressible with transducer pressure and demonstrate normal spontaneous and phasic flow, without evidence of deep venous thrombosis. IMPRESSION: No evidence of deep venous thrombosis of the bilateral lower extremity femoral popliteal venous system. CXR: The lungs are well inflated. No definite infiltrate is seen. There is a rounded pleural type opacity projecting at the right base. 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 This appears unchanged from that CT. No other evidence of infiltrate is seen. Pulmonary vasculature is somewhat cephalized. Oxygen delivery tubing and EKG electrodes are seen. No bony abnormality is seen. Heart is not enlarged.. IMPRESSION: Posterior fat containing hernia projecting at the right lung base unchanged from CT study 13 August 2020. Pulmonary vascular cephalization. Normal heart size. No acute infiltrate. PROGNOSIS: Good. However high risk for readmission for COPD flares. ACTIVITY: As tolerated DIET: consistent carb DISCHARGE PLAN: home with steroid taper and pulm follow up. DISPOSITION: Home DISCHARGE INSTRUCTIONS: home with steroid taper and pulm follow up. ITEMS TO FOLLOWUP ON ON OUTPATIENT: COPD exacerbation - home with steroid taper and pulm follow up. DISCHARGE CONDITION: Stable TIME SPENT ON DISCHARGE: 34 minutes. Vital Signs/I&Os Vital Signs Date Time Temp Pulse Resp B/P (MAP) Pulse Ox O2 Delivery O2 Flow Rate FiO2 11/26/20 08:03 89 124/88 11/26/20 08:02 16 92 Nasal Cannula 2.0 11/26/20 06:00 97.0 I&O- Last 24 Hours up to 6 AM 11/26/20 06:00 Intake Total 1530 ml Output Total 1825 ml Balance -295 ml Laboratory Data Labs 24H Laboratory Tests 2 11/25/20 11:28: Bedside Glucose (Misc Panel) 342H 11/25/20 16:44: Bedside Glucose (Misc Panel) 260H 11/25/20 20:49: Bedside Glucose (Misc Panel) 254H 11/26/20 06:22: Nucleated Red Blood Cells % (auto) 0.0, Anion Gap 4L, Glomerular Filtration Rate > 60.0, Calcium Level 8.6L CBC/BMP Laboratory Tests 11/26/20 06:22 FSBS Laboratory Tests Test 11/25/20 11:28 11/25/20 16:44 11/25/20 20:49 Range/Units Bedside Glucose (Misc Panel) 342 260 254 80-115 MG/DL Microbiology Microbiology 11/20/20 Respiratory Virus Panel (PCR) ([facility]) - Final, Complete Discharge Medications Scheduled Aspirin (Aspirin EC) 81 Mg Tablet.dr, 81 MG PO QHS, (Reported) Atorvastatin Calcium (Atorvastatin Calcium) 10 Mg Tab, 10 MG PO QHS, (Reported) Duloxetine Hcl (Duloxetine HCl) 30 Mg Cap, 60 MG PO QAM, (Reported) Duloxetine Hcl (Duloxetine HCl) 30 Mg Capsule.dr, 30 MG PO QHS, (Reported) Furosemide (Lasix) 40 Mg Tablet, 1 TAB PO DAILY Glimepiride (Glimepiride) 2 Mg Tablet, 2 MG PO BID, (Reported) Guaifenesin (Mucinex) 600 Mg Tab.er.12h, 600 MG PO BID, (Reported) Insulin Detemir (Levemir Flextouch) 100 Unit/1 Ml Insuln.pen, 1 DOSE SC QHS, (Reported) 10-15 UNITS DEPENDING ON BG READING Ipratropium/Albuterol Sulfate (Iprat-Albut 0.5-3(2.5) mg/3 ml) 3 Ml Ampul.neb, 1 VIAL INH TID, (Reported) Metoprolol Tartrate (Metoprolol Tartrate) 25 Mg Tablet, 25 MG PO BID, (Reported) Prednisone (Prednisone) 10 Mg Tablet, 10 MG PO DIRECTED 4tabs daily for 4d, then 3tabs daily for 4d, then 2tabs daily for 4d, then 1tab daily for 4d. Primidone (Mysoline) 50 Mg Tablet, 50 MG PO QHS Tamsulosin HCl (Flomax) 0.4 Mg Cap, 0.8 MG PO DAILY, (Reported) Scheduled PRN Albuterol Sulfate (Ventolin Hfa) 18 Gm Hfa.aer.ad, 2 PUFFS INH QID PRN for SHORTNESS OF BREATH, (Reported) Epinephrine (Epipen 2-Shashi) 0.3 Mg/0.3 Ml Inj, 0.3 MG INJ ASDIRECTED PRN for ANAPHYLAXIS, (Reported) Allergies Coded Allergies: Penicillins (Verified Allergy, Severe, anaphylaxis, 06/19/20) per Dr. Ricky sy (Verified Allergy, Intermediate, HIVES, 11/20/20) ibuprofen (Verified Allergy, Intermediate, face swelling, 11/20/20) BRAND ADVIL bee venom protein (honey bee) (Verified Allergy, Unknown, 06/19/20) ALBERT FERREIRA MD November 26, 2020 09:58
[2020-11-27] MEDS ORDERED: FUROSEMIDE 40MG/4ML VIAL (J1940) IV SCH (09:00)
== END 2020-11-26 13:25 | disposition home or self-care (01) | DRG 190 ==
LOC: M ED 12:21 → M ED INP 18:11 → ENRESERV 18:51 → M MS5PR 21:00
PROVIDERS: ADMIT Internal Medicine; ATTEND Internal Medicine
DX: J44.1 Chronic obstructive pulmonary disease with (acute) exacerbation (principal); J96.21 Acute and chronic respiratory failure with hypoxia; I10 Essential (primary) hypertension; E11.40 Type 2 diabetes mellitus with diabetic neuropathy, unspecified; I35.0 Nonrheumatic aortic (valve) stenosis; G25.0 Essential tremor; Z79.82 Long term (current) use of aspirin; Z79.899 Other long term (current) drug therapy; Z88.0 Allergy status to penicillin; Z88.5 Allergy status to narcotic agent; Z88.6 Allergy status to analgesic agent; Z91.030 Bee allergy status; N40.0 Benign prostatic hyperplasia without lower urinary tract symptoms; Z87.891 Personal history of nicotine dependence; F41.9 Anxiety disorder, unspecified; F32.9 Major depressive disorder, single episode, unspecified; E78.5 Hyperlipidemia, unspecified

== ENCOUNTER → 2020-11-20 | Outpatient (CLI) | payer MEDICARE ==
[~2020-11-20] MED LIST changes: +LEVE1INJ5 SC; +METO25TA4 PO
== END ==
LOC: M PT 11:06
PROVIDERS: ATTEND Family Medicine
DX: J44.1 Chronic obstructive pulmonary disease with (acute) exacerbation (principal)

== ENCOUNTER 2021-01-11 03:52 | Inpatient (IN) | payer MEDICARE ==
[~2021-01-11] VITALS: Ht 177.8 cm; Wt 109.1 kg
[2021-01-11] VITALS (8 sets, daily range): BP systolic 154; BP diastolic 72; O2SAT 92–96
[~2021-01-11 03:52] MED LIST changes: -DOXY100C37 PO; +DOXY1CAP62 PO; +LASI40TA9 PO; +LEVE1INJ5 SC; +METO25TA4 PO; +MYSO50TA5 PO; +OMEP40CA4 PO; -OMEP40CA97 PO; +PRED10TA2 PO
[2021-01-11] MEDS ORDERED: methylPREDNISolone 125MG 2ML VIAL IV ONE (04:00)
[2021-01-11 04:06] LABS: BASO # 0.1 10^3/uL (0.0-0.2); BASO % 0.7 % (0.0-1.0); EOS # 0.6 10^3/uL (0.0-0.5); EOS % 3.4 % (0.0-3.0); HEMATOCRIT 43.1 % (42.0-52.0); HEMOGLOBIN 13.1 g/dl (13.5-17.5); LYMPH # 1.6 10^3/uL (1.5-5.0); LYMPH % 9.2 % (24.0-44.0); MEAN CORPUSCULAR HGB CONC 30.4 g/dl (32.0-36.5); MEAN CORPUSCULAR VOLUME 85.7 fl (80.0-96.0); MONO # 1.1 10^3/uL (0.0-0.8); MONO % 6.3 % (2.0-8.0); NEUTROPHILS # 13.5 10^3/uL (1.5-8.5); NEUTROPHILS % 79.9 % (36.0-66.0); PLATELET COUNT, AUTOMATED 409 10^3/uL (150-450); RED BLOOD COUNT 5.03 10^6/uL (4.30-6.10); WHITE BLOOD COUNT 16.9 10^3/uL (4.0-10.0)
[2021-01-11 04:20] LABS: ABG BASE EXCESS 1.5 (-2.0-2.0); ABG O2 SATURATION 99.6 % (95.0-99.0); ABG PARTIAL PRESSURE CO2 58.6 mmHg (35.0-45.0); ABG PARTIAL PRESSURE O2 194.9 mmHg (75.0-100.0); ABG STANDARD HCO3 25.9 MEQ/L (22.0-26.0); ABG TOTAL CO2 30.8 MEQ/L (23.0-31.0); ABG pH (ARTERIAL) 7.313 UNITS (7.350-7.450)
[2021-01-11] MEDS: IPRATROPIUM 0.5MG/ALBUTEROL 2.5MG INH SOL UD 3ML (DUONEB) NEB PRN ×3 (04:22→06:44)
[2021-01-11 04:47] LABS: ALBUMIN 3.2 GM/DL (3.2-5.2); ALT/SGPT 20 U/L (12-78); BILIRUBIN,DIRECT < 0.1 MG/DL (0.0-0.2); BILIRUBIN,TOTAL 0.2 MG/DL (0.2-1.0); BLOOD UREA NITROGEN 13 MG/DL (7-18); CALCIUM LEVEL 8.6 MG/DL (8.8-10.2); CARBON DIOXIDE LEVEL 29 MEQ/L (21-32); CHLORIDE LEVEL 104 MEQ/L (98-107); CK-MB VALUE MASS 2.7 NG/ML (<3.6); CPK CREATINE PHOSPHOKINASE 73 U/L (39-308); CREATININE FOR GFR 0.85 MG/DL (0.70-1.30); FREE T4 0.84 NG/DL (0.76-1.46); GLOMERULAR FILTRATION RATE > 60.0 (>49); GLUCOSE, FASTING 303 MG/DL (70-100); NT-PRO BNP 49 PG/ML (<125); POTASSIUM SERUM 4.8 MEQ/L (3.5-5.1); SODIUM LEVEL 138 MEQ/L (136-145); TOTAL PROTEIN 6.9 GM/DL (6.4-8.2); TROPONIN I < 0.02 NG/ML (< 0.10)
--- NOTE | 2021-01-11 05:50 | REPVR ---
PROCEDURE INFORMATION: Exam: XR Chest Exam date and time: 01/11/2021 4:11 AM Age: 65 years old Clinical indication: Other: Chest pain TECHNIQUE: Imaging protocol: XR of the chest. Views: 1 view. COMPARISON: NE PORTABLE CHEST X-RAY 11/20/2020 1:20 PM FINDINGS: Lungs: COPD and interstitial prominence. Residual Bochdalek's hernia. Pleural spaces: No pleural effusion. Heart/Mediastinum: Epicardial fat, without cardiomegaly. Bones/joints: Osteopenia. When correlating with the previous study, no significant interval changes are present. IMPRESSION: COPD and interstitial prominence. Electronically signed by: Joon Jolley On 01/11/2021 05:49:55 AM
[2021-01-11 06:01] LABS: ABG BASE EXCESS 2.2 (-2.0-2.0); ABG HCO3 29.9 MEQ/L (22.0-26.0); ABG O2 SATURATION 97.6 % (95.0-99.0); ABG PARTIAL PRESSURE CO2 60.4 mmHg (35.0-45.0); ABG PARTIAL PRESSURE O2 101.6 mmHg (75.0-100.0); ABG STANDARD HCO3 26.4 MEQ/L (22.0-26.0); ABG TOTAL CO2 31.7 MEQ/L (23.0-31.0); ABG pH (ARTERIAL) 7.312 UNITS (7.350-7.450)
[2021-01-11] MEDS ORDERED: IPRATROPIUM 0.5MG/ALBUTEROL 2.5MG INH SOL UD 3ML (DUONEB) NEB PRN (09:05)
[2021-01-11] MEDS ORDERED: ATOR1TAB21 PO (09:22)
[2021-01-11] MEDS ORDERED: DEXTROSE 50% 50 ML SYRINGE IV PRN (09:25)
[2021-01-11] MEDS ORDERED: GLUCAGON INJ 1MG VIAL SC PRN (09:25)
[2021-01-11] MEDS ORDERED: HOME MED LIST COMPLETE! XX SCH (09:25)
[2021-01-11] MEDS ORDERED: GLUCOSE 4GM CHEW TABLET PO PRN (09:25)
--- NOTE | 2021-01-11 09:43 | HPE ---
HISTORY AND PHYSICAL DATE OF ADMISSION: 01/11/2021 PRIMARY CARE PROVIDER: Chas Louise M.D. PAINTER AND BODY WORK: Corey Chou M.D. CHIEF COMPLAINT: Shortness of breath. HISTORY OF PRESENT ILLNESS: Corey Jang is a 55-year-old with a history of fairly severe COPD recently hospitalized in November for exacerbation of COPD. He had a CT angiogram that showed a number of patchy opacities and I do not see follow-up imaging. He has had two days of increasing shortness of breath, wheezing, and he started with a cough that became productive this morning. He wears supplemental oxygen 2.5 liters at baseline. In the emergency room, he required BiPAP rescue, he did better after this was applied, then ultimately did not tolerate it, and it was discontinued. He has pulmonary hypertension on echocardiogram that was done in 07/2020, ejection fraction was 50%. Aortic valve was [id number] stenotic. PAST MEDICAL HISTORY: 1. Obstructive sleep apnea (ASH) for which he uses CPAP. 2. Morbid obesity complicating medical care. 3. Hypertensive heart disease. 4. Type 2 diabetes. 5. Renal stones with right lithotripsy and basket retrieval 2017. 6. Peripheral neuropathy worked up with nerve conduction studies/CMG. 7. Right posterior diaphragmatic hernia. 8. Anxiety/depression. 9. General deconditioning. PAST SURGICAL HISTORY: 1. Umbilical hernia repair x2. 2. Carpal tunnel release. 3. Trigger finger release. 4. Lesion removed from his lip in 1977. FAMILY HISTORY: Non-contributory. SOCIAL HISTORY: Quit smoking in 2010. Occasional alcohol. Occasional marijuana use. MEDICATIONS: Still being verified. ALLERGIES: PENICILLIN CAUSED AYE PHYLAXIS. IBUPROFEN CAUSED SWELLING OF HIS FACE (curiously only brand name Advil did this, generic formulations are tolerated without swelling). CODEINE CAUSED HIVES. He is allergic to honey bee venom. REVIEW OF SYSTEMS: No chest pain, palpitations, epistaxis, rectal bleeding, urinary bleeding, or hemoptysis. PHYSICAL EXAMINATION: VITAL SIGNS: Per flow sheet. GENERAL: He is alert, conversant, and in no distress. HEENT: Unremarkable. NECK: Thick neck. Narrow airway. LUNGS: Decreased breath sounds with wheezes both bases. Moderate air movement. HEART: Regular rhythm, 1/6 systolic ejection murmur. ABDOMEN: Obese and nontender with no masses. EXTREMITIES: 1+ peripheral edema. No clubbing or cyanosis. LABORATORY DATA: White count 69, hemoglobin 13.1, platelets 409,000. Sodium 138, potassium 4.8, BUN 13, creatinine 0.8, glucose 303. Troponin is flat. BNP is only 49. ABG after BiPAP was 7.31/60/101. IMAGING DATA: Chest x-ray was just a single AP film so really not a lot to offer there. IMPRESSION: 1. Exacerbation of chronic obstructive pulmonary disease (COPD) from presumed bronchitis. CT of the chest without contrast has been ordered. Empiric antibiotic therapy with Levaquin. Nebulizer bronchodilator and Solu-Medrol have been ordered. He is off his BiPAP. I discussed the case informally with pulmonary today. I do not think they need formal consultation at this point unless his condition deteriorates. 2. Diabetes. Sliding scale insulin with coverage ordered. 3. History of anxiety/depression. We will reorder his medications once his medications are verified. 4. Hyperlipidemia. We will continue his atorvastatin 10 mg daily. 5. Hypertensive heart disease. Continue metoprolol 25 mg b.i.d. 6. History of BPH. He is on Flomax 0.4 mg two daily (0.8 mg daily); so we will continue these as well.
[2021-01-11] MEDS ORDERED: FUROSEMIDE 40MG/4ML VIAL (J1940) IV ONE (09:45)
--- NOTE | 2021-01-11 09:54 | REP ---
INDICATION: ? pneum COMPARISON: 11/20/2020 TECHNIQUE: Axial noncontrast images from the thoracic inlet to the upper abdomen with coronal and sagittal reformations. This CT examination was performed using the following dose reduction techniques: Automated exposure control, adjustment of mA and/or kv according to the patient's size, and use of iterative reconstruction technique. FINDINGS: Lung crowe demonstrate advanced COPD/emphysematous changes with scattered scarring and bronchiectasis essentially unchanged. No acute consolidation, effusion, or pneumothorax. Previous infiltrates have resolved. No obvious significant nodule or mass. No significant adenopathy noted. Atherosclerotic changes of the thoracic aorta and coronary arteries noted without aortic aneurysm or cardiomegaly. No pericardial effusion. Musculoskeletal structures are intact. Chronic fat containing right posterior Bochdalek's hernia unchanged. IMPRESSION: Chronic COPD/emphysematous changes. No acute mediastinal or pleuroparenchymal process appreciated. <Electronically signed by Eduardo Bay > 01/11/21 0929
[2021-01-11] MEDS: METOPROLOL TART 25 MG TABLET PO SCH ×2 (10:18→20:16)
[2021-01-11] MEDS: TAMSULOSIN 0.4 MG CAP PO SCH (10:18)
[2021-01-11] MEDS: ENOXAPARIN 40MG/0.4ML SYRINGE (J1650 PER 10MG) SC SCH (10:19)
[2021-01-11] MEDS: LevoFLOXacin IV 750 MG in IV 1 EA IV SCH (11:42)
[2021-01-11] MEDS: DULoxetine 30 MG CAP (CYMBALTA) PO SCH ×2 (12:11→20:14)
[2021-01-11] MEDS: HumaLOG INSULIN (NovoLOG) PER UNIT SC SCH ×3 (12:18→20:13)
[2021-01-11] MEDS: IPRATROPIUM 0.5MG/ALBUTEROL 2.5MG INH SOL UD 3ML (DUONEB) NEB SCH ×2 (13:29→19:41)
[2021-01-11] MEDS ORDERED: SLF 3 ML SYR IV PRN (15:10)
[2021-01-11] MEDS: methylPREDNISolone 125MG 2ML VIAL IV SCH (17:04)
[2021-01-11] MEDS: ATORVASTATIN 20 MG TAB PO SCH (20:14)
[2021-01-11] MEDS: KETOCONAZOLE 2% CREAM TOP SCH (20:14)
--- NOTE | 2021-01-11 20:48 | ECGEPIP ---
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
[2021-01-11] MEDS: SLF 3 ML SYR IV SCH (22:00)
[2021-01-12] VITALS (28 sets, daily range): BP systolic 114–131; BP diastolic 58–72; O2SAT 90–97
[2021-01-12] MEDS: IPRATROPIUM 0.5MG/ALBUTEROL 2.5MG INH SOL UD 3ML (DUONEB) NEB SCH ×4 (02:10→19:40)
[2021-01-12] MEDS: methylPREDNISolone 125MG 2ML VIAL IV SCH (04:13)
[2021-01-12 05:50] LABS: HEMATOCRIT 41.1 % (42.0-52.0); HEMOGLOBIN 12.7 g/dl (13.5-17.5); MEAN CORPUSCULAR HEMOGLOBIN 26.1 pg (27.0-33.0); MEAN CORPUSCULAR HGB CONC 30.9 g/dl (32.0-36.5); MEAN CORPUSCULAR VOLUME 84.4 fl (80.0-96.0); PLATELET COUNT, AUTOMATED 440 10^3/uL (150-450); RED BLOOD COUNT 4.87 10^6/uL (4.30-6.10); WHITE BLOOD COUNT 18.9 10^3/uL (4.0-10.0)
[2021-01-12] MEDS: SLF 3 ML SYR IV SCH ×3 (06:07→20:37)
[2021-01-12 06:12] LABS: BLOOD UREA NITROGEN 20 MG/DL (7-18); CARBON DIOXIDE LEVEL 30 MEQ/L (21-32); CHLORIDE LEVEL 102 MEQ/L (98-107); CREATININE FOR GFR 0.94 MG/DL (0.70-1.30); GLOMERULAR FILTRATION RATE > 60.0 (>49); GLUCOSE, FASTING 385 MG/DL (70-100); POTASSIUM SERUM 4.7 MEQ/L (3.5-5.1); SODIUM LEVEL 139 MEQ/L (136-145)
[2021-01-12] MEDS: HumaLOG INSULIN (NovoLOG) PER UNIT SC SCH ×4 (08:26→20:44)
[2021-01-12] MEDS: LEVEMIR (INSULIN DETEMIR) 1 UNITS/0.01ML SC SCH (08:27)
[2021-01-12] MEDS: ENOXAPARIN 40MG/0.4ML SYRINGE (J1650 PER 10MG) SC SCH (08:27)
[2021-01-12] MEDS: TAMSULOSIN 0.4 MG CAP PO SCH (08:27)
[2021-01-12] MEDS: METOPROLOL TART 25 MG TABLET PO SCH ×2 (08:28→20:34)
[2021-01-12] MEDS: DULoxetine 30 MG CAP (CYMBALTA) PO SCH ×2 (08:28→20:34)
[2021-01-12] MEDS: KETOCONAZOLE 2% CREAM TOP SCH ×2 (08:29→20:38)
--- NOTE | 2021-01-12 08:32 | IPN ---
PROGRESS NOTE DATE: 01/12/2021 SUBJECTIVE: Corey feels better. He is less short of breath. He had a modest diuresis yesterday. He is quite resistant to more diuretic today. We had a lengthy discussion about his signs of right-sided heart failure and the need to mobilize some more of that fluid. No chest pain. Less short of breath and less wheezy. OBJECTIVE: VITAL SIGNS: Blood pressure 131/70, afebrile, 95% O2 saturation. GENERAL APPEARANCE: He is lying flat in bed. HEENT: Unremarkable. LUNGS: Decreased breath sounds, but clear. HEART: Regular rate and rhythm. ABDOMEN: Soft, obese, and nontender with no masses. EXTREMITIES: 1+ peripheral edema. LABORATORY DATA: Potassium is 4.7. Renal function is normal. White count is up to 18.9 on steroids. Hemoglobin 12.7, platelets 440,000. Blood sugars are 300 to 400 range. ASSESSMENT AND PLAN: 1. Exacerbation of chronic obstructive pulmonary disease (COPD) for presumed bronchitis. Continue empiric antibiotic therapy with Levaquin, nebulized bronchodilator, and Solu-Medrol. 2. Suggestive of right-sided heart failure. He does have peripheral edema and obstructive sleep apnea (ASH). He did finally consent to letting me continue diuresis efforts. I will give him a dose of intravenous furosemide. 3. Diabetes. Add Levemir to his sliding scale insulin. 4. History of depression and anxiety. We have restarted his duloxetine yesterday. 5. Hypertension. Continue metoprolol 25 mg b.i.d. 6. BPH. Continue Flomax. Advised frequent ambulation. Anticipate discharge tomorrow if stable.
[2021-01-12] MEDS ORDERED: FUROSEMIDE 40MG/4ML VIAL (J1940) IV ONE (09:00)
[2021-01-12] MEDS: LevoFLOXacin IV 750 MG in IV 1 EA IV SCH (11:24)
[2021-01-12] MEDS: methylPREDNISolone 40MG 1ML VIAL IV SCH (16:35)
[2021-01-12] MEDS: ATORVASTATIN 20 MG TAB PO SCH (20:34)
[2021-01-13] VITALS (14 sets, daily range): BP systolic 104–146; BP diastolic 62–93; O2SAT 92–97
[2021-01-13] MEDS: IPRATROPIUM 0.5MG/ALBUTEROL 2.5MG INH SOL UD 3ML (DUONEB) NEB SCH ×4 (01:06→20:06)
[2021-01-13] MEDS: SLF 3 ML SYR IV SCH ×3 (04:27→21:34)
[2021-01-13] MEDS: methylPREDNISolone 40MG 1ML VIAL IV SCH (04:27)
[2021-01-13 05:26] LABS: HEMATOCRIT 39.9 % (42.0-52.0); HEMOGLOBIN 12.2 g/dl (13.5-17.5); MEAN CORPUSCULAR HGB CONC 30.6 g/dl (32.0-36.5); MEAN CORPUSCULAR VOLUME 84.9 fl (80.0-96.0); PLATELET COUNT, AUTOMATED 412 10^3/uL (150-450); WHITE BLOOD COUNT 23.5 10^3/uL (4.0-10.0)
[2021-01-13 05:45] LABS: BLOOD UREA NITROGEN 25 MG/DL (7-18); CALCIUM LEVEL 8.8 MG/DL (8.8-10.2); CARBON DIOXIDE LEVEL 34 MEQ/L (21-32); CHLORIDE LEVEL 103 MEQ/L (98-107); CREATININE FOR GFR 0.93 MG/DL (0.70-1.30); GLOMERULAR FILTRATION RATE > 60.0 (>49); GLUCOSE, FASTING 280 MG/DL (70-100); POTASSIUM SERUM 4.5 MEQ/L (3.5-5.1); SODIUM LEVEL 139 MEQ/L (136-145)
[2021-01-13] MEDS: HumaLOG INSULIN (NovoLOG) PER UNIT SC SCH ×4 (08:31→20:45)
[2021-01-13] MEDS: LEVEMIR (INSULIN DETEMIR) 1 UNITS/0.01ML SC SCH (08:31)
[2021-01-13] MEDS: ENOXAPARIN 40MG/0.4ML SYRINGE (J1650 PER 10MG) SC SCH (08:32)
[2021-01-13] MEDS: DULoxetine 30 MG CAP (CYMBALTA) PO SCH ×2 (08:32→20:35)
[2021-01-13] MEDS: TAMSULOSIN 0.4 MG CAP PO SCH (08:32)
[2021-01-13] MEDS: KETOCONAZOLE 2% CREAM TOP SCH ×2 (08:33→20:36)
[2021-01-13] MEDS: METOPROLOL TART 25 MG TABLET PO SCH ×2 (08:34→20:35)
[2021-01-13] MEDS: LevoFLOXacin 500 MG TABLET PO SCH (10:25)
[2021-01-13] MEDS: PERCOCET 5MG/325MG TAB PO PRN ×2 (10:25→20:38)
[2021-01-13] MEDS: predniSONE 20 MG TAB PO SCH (10:26)
--- NOTE | 2021-01-13 11:41 | IPN ---
PROGRESS NOTE DATE: 01/13/2021 SUBJECTIVE: Corey is feeling better on a progressive basis. We have been able to get a good diuresis and it has helped quite a bit with some right sided heart failure. He has peripheral neuropathy which is quite painful related to his diabetes, apparently he uses opiates at home for this. He has been requesting them repeatedly during this admission and I am holding off on treating his pain with opiates due to his respiratory problems and CO2 retention but he seems to have improved to the point where he should be able to tolerate this. He also uses THC derivative at home for his pain as well. OBJECTIVE: VITAL SIGNS: Blood pressure 136/68, pulse is 94, respiratory rate is 16, 95% O2 saturation on 2 liters. GENERAL APPEARANCE: He is resting comfortably in no distress. HEENT: Unremarkable. LUNGS: Decreased breath sounds but clear. HEART: Regular rate and rhythm. ABDOMEN: Soft, nontender, no masses. EXTREMITIES: Trace peripheral edema. Hyperesthesia of the lower extremities. IMPRESSION: 1. Exacerbation of COPD, improved with his current treatment. He is on IV Solumedrol, IV Levaquin and nebulized bronchodilator. Will change to p.o. Prednisone and p.o. antibiotic in anticipation of discharge tomorrow. 2. Suspected cor pulmonale with right sided failure. He has responded well with a good diuresis. I do not think he needs any further diuretic today. 3. Peripheral neuropathy, painful. He says he uses Percocet at home for this, is not on his current medication list. Low dose Percocet has been ordered. Need to watch for any potential respiratory depression on this. 4. Diabetes, under moderate control in hospital. I suspect his diabetic control at home is not good. Anticipate discharge tomorrow if stable.
[2021-01-13] MEDS: ATORVASTATIN 20 MG TAB PO SCH (20:35)
[2021-01-14] MEDS: IPRATROPIUM 0.5MG/ALBUTEROL 2.5MG INH SOL UD 3ML (DUONEB) NEB SCH ×4 (01:53→19:42)
[2021-01-14] MEDS: PERCOCET 5MG/325MG TAB PO PRN ×3 (02:22→20:40)
[2021-01-14 06:00] VITALS: BP 118/81
[2021-01-14] MEDS: LevoFLOXacin 500 MG TABLET PO SCH (06:33)
[2021-01-14] MEDS: SLF 3 ML SYR IV SCH ×3 (06:33→20:41)
[2021-01-14 06:55] LABS: HEMATOCRIT 38.8 % (42.0-52.0); HEMOGLOBIN 11.7 g/dl (13.5-17.5); MEAN CORPUSCULAR HGB CONC 30.2 g/dl (32.0-36.5); MEAN CORPUSCULAR VOLUME 86.2 fl (80.0-96.0); PLATELET COUNT, AUTOMATED 377 10^3/uL (150-450); WHITE BLOOD COUNT 16.5 10^3/uL (4.0-10.0)
[2021-01-14 07:25] LABS: BLOOD UREA NITROGEN 28 MG/DL (7-18); CALCIUM LEVEL 8.4 MG/DL (8.8-10.2); CARBON DIOXIDE LEVEL 31 MEQ/L (21-32); CHLORIDE LEVEL 102 MEQ/L (98-107); CREATININE FOR GFR 0.96 MG/DL (0.70-1.30); GLOMERULAR FILTRATION RATE > 60.0 (>49); GLUCOSE, FASTING 268 MG/DL (70-100); POTASSIUM SERUM 3.9 MEQ/L (3.5-5.1); SODIUM LEVEL 139 MEQ/L (136-145)
[2021-01-14] MEDS: predniSONE 20 MG TAB PO SCH (07:51)
[2021-01-14] MEDS: DULoxetine 30 MG CAP (CYMBALTA) PO SCH ×2 (07:51→20:39)
[2021-01-14] MEDS: TAMSULOSIN 0.4 MG CAP PO SCH (07:51)
[2021-01-14] MEDS: METOPROLOL TART 25 MG TABLET PO SCH ×2 (07:51→20:41)
[2021-01-14] MEDS: ENOXAPARIN 40MG/0.4ML SYRINGE (J1650 PER 10MG) SC SCH (07:51)
[2021-01-14] MEDS: HumaLOG INSULIN (NovoLOG) PER UNIT SC SCH ×4 (07:52→20:39)
[2021-01-14] MEDS: LEVEMIR (INSULIN DETEMIR) 1 UNITS/0.01ML SC SCH (07:52)
[2021-01-14] MEDS: KETOCONAZOLE 2% CREAM TOP SCH ×2 (07:53→20:41)
--- NOTE | 2021-01-14 13:15 | IPNPDOC ---
Subjective Date Seen The patient was seen on 01/14/21. Subjective Chief Complaint/HPI cough, shortness of breath Objective Physical Examination General Exam: Positive: Alert, Cooperative, No Acute Distress ENT Exam: Positive: Atraumatic Chest Exam: Positive: Other (b/l decreased breath sounds, diffuse wheezing/rhonchi) Heart Exam: Positive: Rate Normal Abdomen Exam: Positive: Normal bowel sounds, Soft Extremity Exam: Positive: Edema Skin Exam: Negative: Rash Neuro Exam: Positive: Normal Speech, Strength at 5/5 X4 ext Psych Exam: Positive: Mood NL Assessment /Plan Assessment 65 y/o M initially came to ER c/o cough, shortness of breath, was admitted for COPD exacerbation. Labs and imaging studies reviewed Pt c/o cough with whitish sputum; Plan 1. COPD exacerbation improving Levofloxacin, PO steroids, duonebs will continue to monitor respiratory status closely will f/u sputum culture 2. DM type 2 insulin lantus, insulin sliding scale, diabetic diet uncontrolled will f/u HgA1c 3. Obesity supportive care 4. Chronic hypoxic respiratory failure secondary to COPD supplemental O2 5. h/o ASH intolerance to CPAP o/p pulmonary eval 6. BPH home meds 7. h/o suspected diastolic CHF o/p cardiology referral 8. h/o peripheral neuropathy will resume home med percocet 9. h/o chronic b/l lower extremities edema supportive shelter meds 10. HLD home meds 11. h/o anxiety/depression home meds Plan/VTE VTE Prophylaxis Ordered?: Yes VS, I&O, 24H, Fishbone Vital Signs/I&O Vital Signs Date Time Temp Pulse Resp B/P (MAP) Pulse Ox O2 Delivery O2 Flow Rate FiO2 01/14/21 09:04 2.0 01/14/21 08:50 18 01/14/21 07:51 100 118/81 01/14/21 06:00 97.1 90 Nasal Cannula 01/11/21 06:31 50 I&O- Last 24 Hours up to 6 AM 01/14/21 06:00 Intake Total 1520 ml Output Total 1425 ml Balance 95 ml Laboratory Data 24H LABS Laboratory Tests 2 01/13/21 13:17: Lab Scanned Report Miscellaneous Lab 01/13/21 16:36: Bedside Glucose (Misc Panel) 288H 01/13/21 20:08: Bedside Glucose (Misc Panel) 337H 01/14/21 05:29: Nucleated Red Blood Cells % (auto) 0.0, Anion Gap 6L, Glomerular Filtration Rate > 60.0, Calcium Level 8.4L 01/14/21 11:27: Bedside Glucose (Misc Panel) 380H CBC/BMP Laboratory Tests 01/14/21 05:29 Microbiology Microbiology 01/11/21 Respiratory Virus Panel (PCR) ([facility]) - Final, Complete SIXTO COOK MD Jan 14, 2021 13:15
[2021-01-14 14:00] VITALS: BP 116/80
[2021-01-14 16:32] LABS: HEMOGLOBIN A1c 8.9 %
[2021-01-14] MEDS: ATORVASTATIN 20 MG TAB PO SCH (20:40)
[2021-01-15] MEDS: IPRATROPIUM 0.5MG/ALBUTEROL 2.5MG INH SOL UD 3ML (DUONEB) NEB SCH ×2 (02:00→08:09)
[2021-01-15] MEDS: LevoFLOXacin 500 MG TABLET PO SCH (05:08)
[2021-01-15] MEDS: SLF 3 ML SYR IV SCH (05:09)
[2021-01-15] MEDS: PERCOCET 5MG/325MG TAB PO PRN (05:09)
[2021-01-15 05:50] LABS: HEMATOCRIT 38.1 % (42.0-52.0); HEMOGLOBIN 11.5 g/dl (13.5-17.5); MEAN CORPUSCULAR HEMOGLOBIN 25.9 pg (27.0-33.0); MEAN CORPUSCULAR HGB CONC 30.2 g/dl (32.0-36.5); MEAN CORPUSCULAR VOLUME 85.8 fl (80.0-96.0); RED BLOOD COUNT 4.44 10^6/uL (4.30-6.10); WHITE BLOOD COUNT 10.9 10^3/uL (4.0-10.0)
[2021-01-15 05:52] LABS: PLATELET COUNT, AUTOMATED 275 10^3/uL (150-450)
[2021-01-15 06:00] VITALS: BP 111/78
[2021-01-15 06:13] LABS: BLOOD UREA NITROGEN 24 MG/DL (7-18); CALCIUM LEVEL 8.1 MG/DL (8.8-10.2); CARBON DIOXIDE LEVEL 27 MEQ/L (21-32); CHLORIDE LEVEL 107 MEQ/L (98-107); CREATININE FOR GFR 0.85 MG/DL (0.70-1.30); GLOMERULAR FILTRATION RATE > 60.0 (>49); GLUCOSE, FASTING 304 MG/DL (70-100); POTASSIUM SERUM 4.2 MEQ/L (3.5-5.1); SODIUM LEVEL 140 MEQ/L (136-145)
[2021-01-15 08:02] VITALS: BP 111/78
[2021-01-15] MEDS: METOPROLOL TART 25 MG TABLET PO SCH (08:02)
[2021-01-15] MEDS: DULoxetine 30 MG CAP (CYMBALTA) PO SCH (08:02)
[2021-01-15] MEDS: TAMSULOSIN 0.4 MG CAP PO SCH (08:02)
[2021-01-15] MEDS: predniSONE 20 MG TAB PO SCH (08:03)
[2021-01-15] MEDS: ENOXAPARIN 40MG/0.4ML SYRINGE (J1650 PER 10MG) SC SCH (08:03)
[2021-01-15] MEDS: LEVEMIR (INSULIN DETEMIR) 1 UNITS/0.01ML SC SCH (08:03)
[2021-01-15] MEDS: HumaLOG INSULIN (NovoLOG) PER UNIT SC SCH (08:03)
[2021-01-15] MEDS: KETOCONAZOLE 2% CREAM TOP SCH (08:04)
[2021-01-15] MEDS ORDERED: LEVE1INJ5 SC (09:49)
[2021-01-15] MEDS ORDERED: PRED20TA PO (09:49)
--- NOTE | 2021-01-15 09:53 | DS.PDOC ---
Discharge Summary General Date of Admission Jan 11, 2021 at 09:05 Date of Discharge 01-15-21 Discharge Summary PROCEDURES PERFORMED DURING STAY: [None]. ADMITTING DIAGNOSES: COPD exacerbation DISCHARGE DIAGNOSES: Resolved episode of COPD exacerbation COMPLICATIONS/CHIEF COMPLAINT: Copd With Acute Exacerbation. HOSPITAL COURSE: 65 y/o M was admitted for COPD exacerbation. Pt was started on iv solumedrol, levofloxacin, duonebs. Over the course of treatment pt's clinical condition improved. Pt completed 3 days course of Levofloxacin during hospital stay. Pt was seen and examined at bedside on day of discharge. Pt stated that he was feeling fine and did not have any complaint DISCHARGE MEDICATIONS: Please see below. ALLERGIES: Please see below. PHYSICAL EXAMINATION ON DISCHARGE: VITAL SIGNS: Please see below. GENERAL: Comfortable HEENT: moist mucous membrane, NECK: supple CARDIOVASCULAR EXAMINATION: regular rate RESPIRATORY EXAMINATION: b/l decreased breath sounds, no wheezing/rhonchi ABDOMINAL EXAMINATION: soft, EXTREMITIES: mild pedal edema SKIN: no rash NEUROLOGICAL EXAMINATION: no focal deficit PSYCHIATRIC EXAMINATION: mood normal LABORATORY DATA: Please see below. ACTIVITY: [As tolerated]. DISCHARGE CONDITION: [Stable]. TIME SPENT ON DISCHARGE: 35 minutes. Vital Signs/I&Os Vital Signs Date Time Temp Pulse Resp B/P (MAP) Pulse Ox O2 Delivery O2 Flow Rate FiO2 01/15/21 08:59 1.0 01/15/21 08:02 91 111/78 01/15/21 06:00 98.2 20 95 Room Air 01/11/21 06:31 50 I&O- Last 24 Hours up to 6 AM 01/15/21 06:00 Intake Total 1540 ml Output Total 0 ml Balance 1540 ml Laboratory Data Labs 24H Laboratory Tests 2 01/14/21 11:27: Bedside Glucose (Misc Panel) 380H 01/14/21 16:18: Bedside Glucose (Misc Panel) 312H 01/14/21 20:26: Bedside Glucose (Misc Panel) 292H 01/15/21 05:20: Nucleated Red Blood Cells % (auto) 0.0, Anion Gap 6L, Glomerular Filtration Rate > 60.0, Calcium Level 8.1L CBC/BMP Laboratory Tests 01/15/21 05:20 FSBS Laboratory Tests Test 01/14/21 11:27 01/14/21 16:18 01/14/21 20:26 Range/Units Bedside Glucose (Misc Panel) 380 312 292 80-115 MG/DL Microbiology Microbiology 01/11/21 Respiratory Virus Panel (PCR) ([facility]) - Final, Complete Discharge Medications Scheduled Aspirin (Aspirin EC) 81 Mg Tablet.dr, 81 MG PO QHS, (Reported) Atorvastatin Calcium (Atorvastatin Calcium) 20 Mg Tablet, 20 MG PO QHS, (Reported) Duloxetine Hcl (Duloxetine HCl) 30 Mg Cap, 60 MG PO QAM, (Reported) Duloxetine Hcl (Duloxetine HCl) 30 Mg Capsule.dr, 30 MG PO QHS, (Reported) Glimepiride (Glimepiride) 2 Mg Tablet, 2 MG PO BID, (Reported) Insulin Detemir (Levemir Flextouch) 100 Unit/1 Ml Insuln.pen, 20 DOSE SC QHS Metoprolol Tartrate (Metoprolol Tartrate) 25 Mg Tablet, 25 MG PO BID, (Reported) Prednisone (Prednisone) 20 Mg Tablet, 40 MG PO QAM Tamsulosin HCl (Flomax) 0.4 Mg Cap, 0.8 MG PO DAILY, (Reported) Scheduled PRN Albuterol Sulfate (Ventolin Hfa) 18 Gm Hfa.aer.ad, 2 PUFFS INH QID PRN for SHORTNESS OF BREATH, (Reported) Epinephrine (Epipen 2-Shashi) 0.3 Mg/0.3 Ml Inj, 0.3 MG INJ ASDIRECTED PRN for ANAPHYLAXIS, (Reported) Ipratropium/Albuterol Sulfate (Iprat-Albut 0.5-3(2.5) mg/3 ml) 3 Ml Ampul.neb, 1 VIAL INH QID PRN for SOB/WHEEZING, (Reported) Allergies Coded Allergies: Penicillins (Verified Allergy, Severe, anaphylaxis, 06/19/20) per Dr. García codeomega (Verified Allergy, Intermediate, HIVES, 11/20/20) ibuprofen (Verified Allergy, Intermediate, face swelling, 11/20/20) BRAND ADVIL bee venom protein (honey bee) (Verified Allergy, Unknown, 06/19/20) SIXTO COOK MD Jan 15, 2021 09:53
== END 2021-01-15 12:10 | disposition home or self-care (01) | DRG 190 ==
LOC: M ED 03:52 → M ED INP 09:05 → ENRESERVTM 14:37 → ENRESERVDT 14:37 → M PCU 14:47 → M MS5PR 01-13 18:30
PROVIDERS: ADMIT Family Medicine; ATTEND Internal Medicine
DX: J44.1 Chronic obstructive pulmonary disease with (acute) exacerbation (principal); I50.33 Acute on chronic diastolic (congestive) heart failure; J96.11 Chronic respiratory failure with hypoxia; G47.33 Obstructive sleep apnea (adult) (pediatric); E66.01 Morbid (severe) obesity due to excess calories; I11.0 Hypertensive heart disease with heart failure; E11.42 Type 2 diabetes mellitus with diabetic polyneuropathy; F41.9 Anxiety disorder, unspecified; F32.9 Major depressive disorder, single episode, unspecified; E78.5 Hyperlipidemia, unspecified; I27.81 Cor pulmonale (chronic); N40.0 Benign prostatic hyperplasia without lower urinary tract symptoms; Z88.0 Allergy status to penicillin; Z88.6 Allergy status to analgesic agent; Z88.5 Allergy status to narcotic agent; Z91.030 Bee allergy status; Z79.899 Other long term (current) drug therapy; Z79.891 Long term (current) use of opiate analgesic; Z99.81 Dependence on supplemental oxygen; Z79.4 Long term (current) use of insulin; Z68.34 Body mass index [BMI] 34.0-34.9, adult

== ENCOUNTER 2021-01-26 14:11 | Inpatient (IN) | payer MEDICARE ==
[~2021-01-26] VITALS: Ht 177.8 cm; Wt 116.7 kg
[~2021-01-26 14:11] MED LIST changes: +ATOR1TAB21 PO; +PRED20TA PO
[2021-01-26] MEDS ORDERED: ATOR1TAB19 PO (14:33)
[2021-01-26] MEDS ORDERED: TRAZ-252 PO (14:33)
[2021-01-26 15:05] LABS: BASO # 0.1 10^3/uL (0.0-0.2); BASO % 0.6 % (0.0-1.0); EOS # 0.7 10^3/uL (0.0-0.5); EOS % 4.5 % (0.0-3.0); LYMPH # 1.3 10^3/uL (1.5-5.0); LYMPH % 8.9 % (24.0-44.0); MEAN CORPUSCULAR HEMOGLOBIN 25.6 pg (27.0-33.0); MEAN CORPUSCULAR HGB CONC 30.2 g/dl (32.0-36.5); MEAN CORPUSCULAR VOLUME 84.8 fl (80.0-96.0); MONO # 1.1 10^3/uL (0.0-0.8); MONO % 7.8 % (2.0-8.0); NEUTROPHILS # 11.3 10^3/uL (1.5-8.5); NEUTROPHILS % 77.5 % (36.0-66.0); PLATELET COUNT, AUTOMATED 421 10^3/uL (150-450); RED BLOOD COUNT 5.07 10^6/uL (4.30-6.10); WHITE BLOOD COUNT 14.6 10^3/uL (4.0-10.0)
--- NOTE | 2021-01-26 15:16 | REP ---
INDICATION: DYSPNEA/COUGH COMPARISON: 01/11/2021 TECHNIQUE: Portable AP view of the chest FINDINGS: The mediastinum and cardiac silhouette are stable and within normal limits for portable technique. The lung crowe demonstrate diffuse chronic changes without obvious acute consolidation, effusion, or pneumothorax. Rounded lesion at the right lung base is stable and consistent with Bochdalek's hernia. Skeletal structures are intact. IMPRESSION: No acute cardiopulmonary process appreciated. <Electronically signed by Eduardo Bay > 01/26/21 [id number]
[2021-01-26 15:31] LABS: ALT/SGPT 21 U/L (12-78); BILIRUBIN,DIRECT 0.1 MG/DL (0.0-0.2); BILIRUBIN,TOTAL 0.3 MG/DL (0.2-1.0); BLOOD UREA NITROGEN 12 MG/DL (7-18); CALCIUM LEVEL 8.9 MG/DL (8.8-10.2); CARBON DIOXIDE LEVEL 31 MEQ/L (21-32); CHLORIDE LEVEL 102 MEQ/L (98-107); CK-MB VALUE MASS < 1.0 NG/ML (<3.6); CPK CREATINE PHOSPHOKINASE 60 U/L (39-308); GLOMERULAR FILTRATION RATE > 60.0 (>49); GLUCOSE, FASTING 222 MG/DL (70-100); MB/CK RELATIVE INDEX 1.67 (< OR =4); NT-PRO BNP 48 PG/ML (<125); POTASSIUM SERUM 4.7 MEQ/L (3.5-5.1); SODIUM LEVEL 140 MEQ/L (136-145); TOTAL PROTEIN 6.8 GM/DL (6.4-8.2); TROPONIN I < 0.02 NG/ML (< 0.10)
[2021-01-26] MEDS ORDERED: methylPREDNISolone 125MG 2ML VIAL IV ONE (15:35)
[2021-01-26] MEDS: COMBIVENT RESPIMAT 100-20MCG INHALER 4GM INH SCH ×3 (15:45→16:08)
[2021-01-26] MEDS ORDERED: GLUCAGON INJ 1MG VIAL SC PRN (16:00)
[2021-01-26] MEDS ORDERED: DEXTROSE 50% 50 ML SYRINGE IV PRN (16:00)
[2021-01-26] MEDS ORDERED: GLUCOSE 4GM CHEW TABLET PO PRN (16:00)
[2021-01-26] MEDS: LEVALBUTEROL 1.25 MG/0.5 ML CONCENTRATE NEB INH SCH ×3 (16:00→23:00)
[2021-01-26] MEDS ORDERED: LEVALBUTEROL 1.25 MG/0.5 ML CONCENTRATE NEB INH PRN (16:00)
--- NOTE | 2021-01-26 16:17 | REP ---
INDICATION: swelling COMPARISON: None. TECHNIQUE: Burkett scale and color Doppler evaluation using linear high frequency transducer. FINDINGS: Ultrasound examination of the right and left lower extremity deep venous structures from the common femoral vein through the popliteal veins demonstrates normal compressibility flow and wave patterns in response to respiration and augmentation. There is no evidence for deep venous thrombosis. Evaluation in the bilateral calf veins could not be performed due to significant surrounding edema. IMPRESSION: No evidence for deep venous thrombosis. <Electronically signed by Eduardo Bay > 01/26/21 [id number]
[2021-01-26] MEDS ORDERED: LEVE1INJ5 SC (18:27)
--- NOTE | 2021-01-26 19:46 | HPE ---
HISTORY AND PHYSICAL DATE OF ADMISSION: 01/26/2021 SHOESHINER: Corey Chou D.O. PRIMARY CARE PHYSICIAN: Chas Louise. CHIEF COMPLAINT: Shortness of breath, cough, nonproductive, hard to expectorate. 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 He returns today with one week history of shortness of breath, initially with exercise, now with rest, especially when he is sitting and stands up quickly, with oxygen saturation decreasing down from 92% down to the 60s, requiring about 4-5 minutes to recover. Patient complains of a nonproductive cough, difficult to expectorate, without fever or chills, but with worsening shortness of breath and decreased ambulation due to hypoxia. Patient is usually on 2 liters nasal cannula oxygen, but not steroid dependent. In the emergency room (ER), patient was found to have overt wheezing with diminished breath sounds. Hospitalist was asked to admit the patient for acute on chronic chronic obstructive pulmonary disease (COPD) exacerbation. He otherwise says that he has chronic lower extremity edema and does not keep to a fluid restriction and has had no prior history of diastolic heart failure or history of cor pulmonale. Patient otherwise denies any fever, chills, chest pain, pressure, tightness, nausea, vomiting, diarrhea, headaches, changes in vision, changes in bowel habits. He does not pay attention to his weight. No changes in appetite. Denies nausea, vomiting, abdominal pain, dysuria, urgency, frequency, polyphagia or polydipsia. Hospitalist was asked to admit the patient for COPD exacerbation. PAST MEDICAL HISTORY: 1. Obstructive sleep apnea. 2. Morbid obesity. 3. Hypertensive heart disease. 4. Type 2 diabetes. 5. Nephrolithiasis with right lithotripsy and basket retrieval 2016. 6. Chronic peripheral neuropathy. 7. Right posterior diaphragmatic hernia. 8. Anxiety/depression. 9. Deconditioning. 10. Benign prostatic hypertrophy (BPH). PAST SURGICAL HISTORY: 1. Umbilical hernia repair times two. 2. Carpal tunnel release. 3. Trigger finger release. 4. Lesion removed from his lip in 1977. SOCIAL HISTORY: Quit smoking 2010. Social alcohol use. Uses and mixes his own THC. Says that he had medical marijuana approved by his physician about two years ago, but that physician has since retired. Patient does not work. FAMILY HISTORY: Noncontributory. HOME MEDICATIONS: - albuterol 2 puffs four times a day as needed - aspirin 81 mg daily - atorvastatin 10 mg at bedtime - duloxetine 30 mg at bedtime - glimepiride 2 mg twice a day - Combivent one inhalation four times a day - metoprolol 25 mg twice a day - tamsulosin 0.8 mg daily - trazodone 50 mg at bedtime as needed for insomnia - duloxetine 60 mg in the morning - Levemir insulin 10 units at bedtime REVIEW OF SYSTEMS: As per history of present illness (HPI). A 12-point system otherwise negative. PHYSICAL EXAMINATION: VITAL SIGNS: Temperature 98.2, pulse 108, respiratory rate 20, blood pressure 115/71, 94% on 2 liters nasal cannula. GENERAL: Patient has mild conversational dyspnea, speaks about 7-8 words. No tripod positioning or prolonged expirations. HEENT: No pallor or icterus. No jugular venous distention (JVD). No thyromegaly. Pupils round and reactive. No carotid bruit. No stridor. LUNGS: Diminished with bilateral wheezing. HEART: S1, S2. Sinus tachycardia. ABDOMEN: Obese, soft, nontender, nondistended. Extremities: 3+ edema to the sacrum. LABORATORY DATA: White count 14.6, hemoglobin 13, hematocrit 42, platelet count 421, 77% neutrophils. Sodium 140, potassium 4.7, chloride 102, bicarbonate 31, BUN 12, creatinine 0.9, glucose 222, calcium 8.9. Total bilirubin 0.3, direct bilirubin 0.1, AST 80, ALT 21, alkaline phosphatase 118. Total CK 60, MB fraction less than 1. Troponin less than 0.02. BNP 48. Albumin 3. TSH 1.150. Respiratory panel negative. IMAGING STUDIES: Chest x-ray 01/26/2021: No acute cardiopulmonary process. Venous Doppler bilateral lower extremities: No deep venous thrombosis (DVT), ASSESSMENT: A 65-year-old with chronic hypoxic respiratory failure, chronic obstructive pulmonary disease (COPD), hypertension, benign prostatic hypertrophy (BPH), type 2 diabetes, obesity, obstructive sleep apnea (ASH) on 2 liters of oxygen presents with worsening shortness of breath found to have acute COPD exacerbation. Acute issues are as follows: 1. Acute exacerbation of COPD. 2. Chronic hypoxic respiratory failure on 2 liters oxygen. 3. Morbid obesity complicating care. 4. Type 2 diabetes. 5. Hypertensive heart disease. 6. History of renal stones. 7. History of chronic peripheral [id number]. 8. History of right posterior diaphragmatic hernia. 9. Anxiety/depression. PLAN: Patient will be given Solu-Medrol nebulizer treatment with Xopenex to prevent tachycardia, supplemental oxygen to keep saturations above 88-92%, Avalox for five days for antiinflammatory effect. Patient may be resumed on all his other home medications including metoprolol, Flomax for his benign prostatic hypertrophy (BPH), deep venous thrombosis (DVT) prophylaxis with heparin subcutaneous. Monitor patient for steroid-induced hyperglycemia. Patient is getting Percocet for neuropathy and will be given every 6 hours, but monitor for respiratory distress and respiratory acidosis. CODE STATUS is FULL CODE.
[2021-01-26] MEDS: HumaLOG INSULIN (NovoLOG) PER UNIT SC SCH (23:23)
[2021-01-26 23:58] VITALS: BP 129/80
[2021-01-27] MEDS ORDERED: GABAPENTIN 100 MG CAP PO ONE
[2021-01-27] MEDS: ATORVASTATIN 20 MG TAB PO SCH ×2 (00:21→20:36)
[2021-01-27] MEDS: ASPIRIN 81 MG CHEW TABLET PO SCH ×2 (00:21→20:36)
[2021-01-27] MEDS: methylPREDNISolone 125MG 2ML VIAL IV SCH ×5 (00:21→22:06)
[2021-01-27] MEDS: DULoxetine 30 MG CAP (CYMBALTA) PO SCH ×3 (00:21→20:36)
[2021-01-27] MEDS: HEPARIN SOD (PORCINE) 5000UNITS/ML 1ML VIAL/SYRINGE SQ SCH ×4 (00:22→22:06)
[2021-01-27] MEDS: HumaLOG INSULIN (NovoLOG) PER UNIT SC SCH ×5 (00:22→20:38)
[2021-01-27] MEDS: LEVEMIR (INSULIN DETEMIR) 1 UNITS/0.01ML SC SCH ×2 (00:23→20:37)
[2021-01-27] MEDS: METOPROLOL TART 25 MG TABLET PO SCH ×3 (00:24→20:37)
[2021-01-27] MEDS: PERCOCET 5MG/325MG TAB PO PRN ×4 (00:33→19:55)
[2021-01-27] MEDS: LEVALBUTEROL 1.25 MG/0.5 ML CONCENTRATE NEB INH SCH ×5 (03:13→20:49)
[2021-01-27 06:00] VITALS: BP 125/71
[2021-01-27 06:39] LABS: BASO % 0.1 % (0.0-1.0); HEMATOCRIT 41.5 % (42.0-52.0); HEMOGLOBIN 12.6 g/dl (13.5-17.5); LYMPH # 0.9 10^3/uL (1.5-5.0); LYMPH % 6.6 % (24.0-44.0); MEAN CORPUSCULAR HEMOGLOBIN 25.7 pg (27.0-33.0); MEAN CORPUSCULAR HGB CONC 30.4 g/dl (32.0-36.5); MEAN CORPUSCULAR VOLUME 84.5 fl (80.0-96.0); MONO # 0.1 10^3/uL (0.0-0.8); MONO % 0.7 % (2.0-8.0); PLATELET COUNT, AUTOMATED 424 10^3/uL (150-450); RED BLOOD COUNT 4.91 10^6/uL (4.30-6.10); WHITE BLOOD COUNT 14.1 10^3/uL (4.0-10.0)
[2021-01-27 07:00] LABS: BLOOD UREA NITROGEN 13 MG/DL (7-18); CALCIUM LEVEL 8.8 MG/DL (8.8-10.2); CARBON DIOXIDE LEVEL 29 MEQ/L (21-32); CHLORIDE LEVEL 102 MEQ/L (98-107); GLOMERULAR FILTRATION RATE > 60.0 (>49); GLUCOSE, FASTING 264 MG/DL (70-100); POTASSIUM SERUM 5.2 MEQ/L (3.5-5.1); SODIUM LEVEL 137 MEQ/L (136-145)
[2021-01-27 07:01] LABS: HEMOGLOBIN A1c 8.6 %
[2021-01-27] MEDS: TAMSULOSIN 0.4 MG CAP PO SCH (08:06)
[2021-01-27] MEDS ORDERED: KETO2CR TOP (08:45)
[2021-01-27] MEDS ORDERED: ISOVUE-370 76% 100ML VIAL As Ordered ONE (11:14)
--- NOTE | 2021-01-27 11:21 | IPN ---
PROGRESS NOTE DATE: 01/27/2021 Patient continues to complain of dyspnea on exertion even when going from sitting to standing position with desaturation. Patient continues to have wheezing and sinus tachycardia. No fever, chills, or cough. He is currently on nebulizer and Solu-Medrol with no significant improvement. Vital signs: Temperature 96.5, pulse 110, sinus tachycardia, respiratory rate 18, blood pressure 138/82, 94% on 2 liters nasal cannula. Generally: Patient has mild conversational dyspnea, about 7-8 words and needs a few seconds to recover, he is noted to be desaturating from 94% on 2 liters nasal cannula to 90% within a few seconds of speaking 7-8 words but recovers quickly. No tracheal deviation, no carotid bruit, no stridor on neck exam, no jugular venous distension (JVD). Lungs: Diminished, bilateral wheezing, air entry is equal. Heart: S1, S2, sinus tachycardia. No murmurs, rubs, or gallops. Abdomen: Obese, soft, doughy in appearance, nontender, nondistended. Difficult to assess for abdominal bruit. No splenomegaly. Positive bowel sounds. No rebound or guarding. Extremities: Chronic 3+ edema to the sacrum. LABORATORY DATA: CBC, metabolic panel have been reviewed. Notable for potassium of 5.2 and glucose of 264. ASSESSMENT AND PLAN: This is a 65-year-old with chronic hypoxic respiratory failure, 2 liters of oxygen, chronic obstructive pulmonary disease (COPD), non-steroid dependent with multiple admissions for chronic obstructive pulmonary disease (COPD) exacerbation, represents with dyspnea on exertion even from sitting to standing position with negative findings on chest x-ray, remains tachypneic and tachycardic. Active issues are as follows: 1. Acute chronic obstructive pulmonary disease (COPD) exacerbation. On IV Solu-Medrol, nebulizer every 4 hours, and supplemental oxygen, Avelox 400 daily. 2. Chronic hypoxic respiratory failure. Keep saturations at 88-92%. Due to persistent tachypnea and tachycardia with hypoxia he will be sent for CT chest to rule out pulmonary embolism. No signs of pulmonary edema or effusion on chest x-ray. Brain natriuretic peptide (BNP) is less than 100. Unlikely to be right-sided heart failure. 3. Chronic lower extremity edema with chronic venous insufficiency. Lasix 40 IV every 6 hours times three doses and hold for systolic blood pressure less than 110 or creatinine greater than 1.5. Venous Dopplers bilateral lower extremities were negative for deep venous thrombosis (DVT). 4. Obesity. Body mass index (BMI) of 36.9 complicating his care. 5. Type 2 diabetes with steroid-induced hyperglycemia secondary to steroids. Increase Levemir insulin to 20 units subcutaneous daily, titrate for better control, and continue on sliding scale with coverage. Currently on consistent carbohydrate diet. 6. Hypertension, controlled. 7. Anxiety/depression. Resumed on his home medications. 8. BPH, on chronic tamsulosin.
[2021-01-27] MEDS: FUROSEMIDE 40MG/4ML VIAL (J1940) IV SCH ×2 (12:00→17:32)
[2021-01-27] MEDS ORDERED: CALCIUM GLUCONATE 1,000 MG in D5W MINI-BAG PLUS 100 ML IV ONE (12:00)
--- NOTE | 2021-01-27 12:14 | REP ---
INDICATION: hypoxia tachycardia r/o pe. COMPARISON: Comparison chest CT study November 20, 2020.. TECHNIQUE: Contrast dose: 75 ML of Isovue [address] technique: Helical scanning is acquired and overlapping 1.5 mm and contiguous 3 mm axial images are reformatted. In addition, maximum intensity projection and multiplanar re-formation images are generated in sagittal and coronal imaging projections. FINDINGS: There is good opacification in the pulmonary arterial tree. There is no evidence of vessel cut off or filling defect to suggest pulmonary embolus. Homogeneous opacity is seen in the thoracic aorta. There is no evidence of aneurysm or dissection. There is no evidence of pleural or pericardial effusion. A Bochdalek's type diaphragmatic hernia is seen posteriorly in the right chest trans Martinez abdominal fat unchanged. Lung window settings demonstrate no evidence of infiltrate or mass lesion. There are emphysematous changes in the upper lobes bilaterally as before. No hilar or mediastinal mass or adenopathy is observed. In the upper abdomen, there is some diffuse fatty infiltration of the liver. Normal adrenal glands. IMPRESSION: No CT evidence of pulmonary embolus. Diaphragmatic hernia on the right Bochdalek's type transmits abdominal fat as before. Fatty infiltration of the liver again noted.2 emphysematous changes in the upper lobes of the lungs. Otherwise negative. <Electronically signed by Wally Horne > 01/27/21 0113
[2021-01-27] MEDS ORDERED: SOD POLYSTYRENE SULFONATE SUSP 15 GM/60 ML UD PO ONE (13:00)
[2021-01-27 14:00] VITALS: BP 130/94
[2021-01-27] MEDS: MOXIFLOXACIN 400 MG TAB PO SCH (20:36)
--- NOTE | 2021-01-27 21:16 | ECGEPIP ---
[facility] - ED Test Date: 2021-01-26 Pat Name: GENIE BUCKNER Department: Room: - Gender: Male Scheduling Administrator: MITCHEL : [id number] Requested By: Jeanine Pastor Order Number: [id number] Reading MD: Jeanine Pastor Measurements Intervals [place] Rate: 117 P: 75 WA: 152 QRS: 93 QRSD: 84 T: 42 QT: 320 QTc: 446 Interpretive Statements Sinus tachycardia Rightward axis baseline artifact may affect interpretation NSTTW abnormalities similar 01/11/21 Electronically Signed on 01-27-2021 21:16:35 EDT by Jeanine Pastor
[2021-01-27 22:00] VITALS: BP 158/74
[2021-01-28] MEDS: LEVALBUTEROL 1.25 MG/0.5 ML CONCENTRATE NEB INH SCH ×7 (04:00→23:17)
[2021-01-28] MEDS: HEPARIN SOD (PORCINE) 5000UNITS/ML 1ML VIAL/SYRINGE SQ SCH ×3 (05:59→21:29)
[2021-01-28] MEDS: methylPREDNISolone 125MG 2ML VIAL IV SCH ×4 (05:59→22:41)
[2021-01-28 06:00] VITALS: BP 106/52; O2SAT 91
[2021-01-28] MEDS: FUROSEMIDE 40MG/4ML VIAL (J1940) IV SCH ×5 (06:10→23:46)
[2021-01-28 06:27] LABS: BASO % 0.1 % (0.0-1.0); HEMATOCRIT 39.3 % (42.0-52.0); LYMPH # 0.9 10^3/uL (1.5-5.0); LYMPH % 4.3 % (24.0-44.0); MEAN CORPUSCULAR HEMOGLOBIN 25.9 pg (27.0-33.0); MEAN CORPUSCULAR HGB CONC 30.5 g/dl (32.0-36.5); MEAN CORPUSCULAR VOLUME 84.9 fl (80.0-96.0); MONO # 0.6 10^3/uL (0.0-0.8); MONO % 2.8 % (2.0-8.0); NEUTROPHILS # 19.4 10^3/uL (1.5-8.5); NEUTROPHILS % 91.8 % (36.0-66.0); PLATELET COUNT, AUTOMATED 452 10^3/uL (150-450); RED BLOOD COUNT 4.63 10^6/uL (4.30-6.10); WHITE BLOOD COUNT 21.2 10^3/uL (4.0-10.0)
[2021-01-28 07:03] LABS: BLOOD UREA NITROGEN 21 MG/DL (7-18); CALCIUM LEVEL 8.7 MG/DL (8.8-10.2); CARBON DIOXIDE LEVEL 28 MEQ/L (21-32); CHLORIDE LEVEL 106 MEQ/L (98-107); CREATININE FOR GFR 1.01 MG/DL (0.70-1.30); GLOMERULAR FILTRATION RATE > 60.0 (>49); GLUCOSE, FASTING 315 MG/DL (70-100); POTASSIUM SERUM 4.8 MEQ/L (3.5-5.1); SODIUM LEVEL 141 MEQ/L (136-145)
[2021-01-28] MEDS: METOPROLOL TART 25 MG TABLET PO SCH ×2 (07:59→21:27)
[2021-01-28] MEDS: TAMSULOSIN 0.4 MG CAP PO SCH (07:59)
[2021-01-28] MEDS: DULoxetine 30 MG CAP (CYMBALTA) PO SCH ×2 (07:59→21:27)
[2021-01-28] MEDS: HumaLOG INSULIN (NovoLOG) PER UNIT SC SCH ×4 (08:00→21:28)
[2021-01-28] MEDS: PERCOCET 5MG/325MG TAB PO PRN ×3 (08:01→18:30)
[2021-01-28 09:00] VITALS: O2SAT 93
--- NOTE | 2021-01-28 13:43 | IPNPDOC ---
Text Note Date of Service The patient was seen on 01/28/21. NOTE Subjective: Patient is a 65-year-old male with a PMHx of COPD, ASH, HTN, DM2, Hx of Nephrolithiasis, Peripheral neuropathy, Anxiety / Depression, BPH, Morbid obesity, who presented to the emergency room with complaint of shortness of breath and a nonproductive cough. Patient was admitted to the hospital service for further evaluation and treatment. Initially patient was treated for COPD exacerbation and was subsequently started on diuretic therapy for suspected decompensated CHF. Patient was seen and examined at the bedside. Currently patient is sitting up at the bedside with supplemental oxygen at his baseline 2 L. He denies any chest pain or palpitations. However, he does report extreme shortness of breath on ambulation. He denies any chest pain but does report some cough without any significant expectoration. Denies any abdominal pain consultation, diarrhea, or urinary discomfort. Objective: Vitals (See below) General: Lying in bed, no acute distress, comfortable, AAOx3 HEENT: NC, AT CVS: +S1S2 Lungs: Diminished lung sounds bilaterally with evidence of wheezing faintly bilaterally Abdomen: Soft, ND, NT Extremities: 3+ patting edema bilaterally, - Calf tenderness Imaging: CXR 01/26: No acute cardiopulmonary process appreciated. Vascular US 01/26: No evidence for deep venous thrombosis. CTA chest 01/27: No CT evidence of pulmonary embolus. Diaphragmatic hernia on the right Bochdalek's type transmits abdominal fat as before. Fatty infiltration of the liver again noted.2 emphysematous changes in the upper lobes of the lungs. Otherwise negative. Assessment and plan: Acute on Chronic COPD exacerbation - Physical reveals diminished lung sounds bilaterally with faint wheezing - Patient is on baseline level of supplemental oxygen - c/w Solu-Medrol and Moxifloxacin (Day #2) - c/w inhaled therapy as ordered Chronic hypoxic respiratory failure - Will maintain saturation between 88-92% Chronic lower extremity edema with chronic venous insufficiency - Will check ECHO - Strict ins/outs, daily weights, fluid restriction - c/w Furosemide DM2 with steroid-induced hyperglycemia 2/2 corticosteroids - c/w ISS and Levemir DLP - c/w Atorvastatin and ASA 81 HTN - BP well controlled - c/w Furosemide / Metoprolol Anxiety / Depression - c/w Duloxetine BPH - c/w Tamsulosin Obesity - BMI of 36.9 - Complicating medical care DVT prophylaxis - c/w Heparin Disposition: - Awaiting clinical improvement VS,Gildardo, I+O VS, Gildardo, I+O Laboratory Tests 01/28/21 06:16 Vital Signs Date Time Temp Pulse Resp B/P (MAP) Pulse Ox O2 Delivery O2 Flow Rate FiO2 01/28/21 09:00 1.5 01/28/21 09:00 93 Nasal Cannula 01/28/21 08:31 18 01/28/21 07:59 98 126/76 01/28/21 06:00 97.5 I&O- Last 24 Hours up to 6 AM 01/28/21 06:00 Intake Total 1670 ml Output Total 775 ml Balance 895 ml LISA VIRAMONTES MD Jan 28, 2021 13:43
[2021-01-28 14:00] VITALS: BP 128/72
[2021-01-28 20:00] VITALS: O2SAT 94
[2021-01-28] MEDS: MOXIFLOXACIN 400 MG TAB PO SCH (21:26)
[2021-01-28] MEDS: ATORVASTATIN 20 MG TAB PO SCH (21:26)
[2021-01-28] MEDS: ASPIRIN 81 MG CHEW TABLET PO SCH (21:26)
[2021-01-28] MEDS: LEVEMIR (INSULIN DETEMIR) 1 UNITS/0.01ML SC SCH (21:27)
[2021-01-28 22:00] VITALS: BP 134/78
[2021-01-29] MEDS: PERCOCET 5MG/325MG TAB PO PRN ×4 (02:15→17:51)
[2021-01-29] MEDS: LEVALBUTEROL 1.25 MG/0.5 ML CONCENTRATE NEB INH SCH ×6 (04:00→23:48)
[2021-01-29] MEDS: methylPREDNISolone 125MG 2ML VIAL IV SCH (05:46)
[2021-01-29] MEDS: HEPARIN SOD (PORCINE) 5000UNITS/ML 1ML VIAL/SYRINGE SQ SCH ×3 (05:46→21:30)
[2021-01-29] MEDS: FUROSEMIDE 40MG/4ML VIAL (J1940) IV SCH (05:46)
[2021-01-29 06:00] VITALS: BP 123/63
[2021-01-29 06:37] LABS: BASO % 0.1 % (0.0-1.0); HEMATOCRIT 40.7 % (42.0-52.0); HEMOGLOBIN 12.4 g/dl (13.5-17.5); LYMPH # 0.6 10^3/uL (1.5-5.0); LYMPH % 2.8 % (24.0-44.0); MEAN CORPUSCULAR HEMOGLOBIN 25.6 pg (27.0-33.0); MEAN CORPUSCULAR HGB CONC 30.5 g/dl (32.0-36.5); MEAN CORPUSCULAR VOLUME 84.1 fl (80.0-96.0); MONO # 0.6 10^3/uL (0.0-0.8); MONO % 2.5 % (2.0-8.0); NEUTROPHILS # 20.7 10^3/uL (1.5-8.5); NEUTROPHILS % 93.5 % (36.0-66.0); PLATELET COUNT, AUTOMATED 490 10^3/uL (150-450); RED BLOOD COUNT 4.84 10^6/uL (4.30-6.10); WHITE BLOOD COUNT 22.1 10^3/uL (4.0-10.0)
[2021-01-29 07:08] LABS: BLOOD UREA NITROGEN 22 MG/DL (7-18); CALCIUM LEVEL 8.7 MG/DL (8.8-10.2); CARBON DIOXIDE LEVEL 32 MEQ/L (21-32); CHLORIDE LEVEL 100 MEQ/L (98-107); CREATININE FOR GFR 1.09 MG/DL (0.70-1.30); GLOMERULAR FILTRATION RATE > 60.0 (>49); GLUCOSE, FASTING 335 MG/DL (70-100); POTASSIUM SERUM 4.1 MEQ/L (3.5-5.1); SODIUM LEVEL 137 MEQ/L (136-145)
[2021-01-29] MEDS: DULoxetine 30 MG CAP (CYMBALTA) PO SCH ×2 (08:28→21:30)
[2021-01-29] MEDS: HumaLOG INSULIN (NovoLOG) PER UNIT SC SCH ×4 (08:29→21:32)
[2021-01-29] MEDS: TAMSULOSIN 0.4 MG CAP PO SCH (08:29)
[2021-01-29] MEDS: METOPROLOL TART 25 MG TABLET PO SCH ×2 (08:29→21:31)
[2021-01-29 09:00] VITALS: O2SAT 94
--- NOTE | 2021-01-29 10:56 | IPNPDOC ---
Text Note Date of Service The patient was seen on 01/29/21. NOTE Subjective: Patient is a 65-year-old male with a PMHx of COPD, ASH, HTN, DM2, Hx of Nephrolithiasis, Peripheral neuropathy, Anxiety / Depression, BPH, Morbid obesity, who presented to the emergency room with complaint of shortness of breath and a nonproductive cough. Patient was admitted to the hospital service for further evaluation and treatment. Initially patient was treated for COPD exacerbation and was subsequently started on diuretic therapy for suspected decompensated CHF. Patient was seen and examined at the bedside. Patient reports that he gets short of breath with minimal movement. Denies any significant cough, sore reports no joint swelling. Has not spent any chest pain or palpitations. Denies any nausea, vomiting, abdominal pain, diarrhea, or urinary discomfort. Objective: Vitals (See below) General: Patient sitting up in bed, appears to be comfortable, no acute distress, is awake, alert, oriented 3 HEENT: NC, AT CVS: +S1S2 Lungs: Air entry is diminished bilaterally, faint wheezing Abdomen: Soft, nondistended, nontender, obese Extremities: Again, there is 3+ pitting edema bilaterally Imaging: CXR 01/26: No acute cardiopulmonary process appreciated. Vascular US 01/26: No evidence for deep venous thrombosis. CTA chest 01/27: No CT evidence of pulmonary embolus. Diaphragmatic hernia on the right Bochda lek's type transmits abdominal fat as before. Fatty infiltration of the liver again noted.2 emphysematous changes in the upper lobes of the lungs. Otherwise negative. Assessment and plan: Acute on Chronic COPD exacerbation - Physical reveals diminished lung sounds bilaterally with faint wheezing - Patient is on baseline level of supplemental oxygen - c/w Solu-Medrol; will reduce dose today - c/w Moxifloxacin (Day #3) - c/w inhaled therapy as ordered Chronic hypoxic respiratory failure - Will maintain saturation between 88-92% Chronic lower extremity edema with chronic venous insufficiency - Will check ECHO - Has been negative - Strict ins/outs, daily weights, fluid restriction of 1700cc - c/w Furosemide; will reduce frequency today DM2 with steroid-induced hyperglycemia 2/2 corticosteroids - c/w ISS and Levemir DLP - c/w Atorvastatin and ASA 81 HTN - BP well controlled - c/w Furosemide / Metoprolol Anxiety / Depression - c/w Duloxetine BPH - c/w Tamsulosin Obesity - BMI of 36.9 - Complicating medical care DVT prophylaxis - c/w Heparin Disposition: - Awaiting clinical improvement Gildardo CRUZ I+O Gildardo CRUZ I+O Laboratory Tests 01/29/21 05:36 Vital Signs Date Time Temp Pulse Resp B/P (MAP) Pulse Ox O2 Delivery O2 Flow Rate FiO2 01/29/21 09:00 20 Nasal Cannula 1.5 01/29/21 08:30 93 01/29/21 08:29 113 127/73 01/29/21 06:00 97.1 I&O- Last 24 Hours up to 6 AM 01/29/21 06:00 Intake Total 2360 ml Output Total 3925 ml Balance -1565 ml LISA VIRAMONTES MD Jan 29, 2021 10:56
[2021-01-29 14:00] VITALS: BP 139/63
[2021-01-29] MEDS ORDERED: FUROSEMIDE 40MG/4ML VIAL (J1940) IV SCH ×2 (17:00→18:00)
[2021-01-29] MEDS: methylPREDNISolone 40MG 1ML VIAL IV SCH (17:50)
[2021-01-29] MEDS: MOXIFLOXACIN 400 MG TAB PO SCH (21:30)
[2021-01-29] MEDS: ATORVASTATIN 20 MG TAB PO SCH (21:31)
[2021-01-29] MEDS: ASPIRIN 81 MG CHEW TABLET PO SCH (21:31)
[2021-01-29] MEDS: LEVEMIR (INSULIN DETEMIR) 1 UNITS/0.01ML SC SCH (21:31)
[2021-01-29 22:00] VITALS: BP 128/74
[2021-01-30] MEDS: LEVALBUTEROL 1.25 MG/0.5 ML CONCENTRATE NEB INH SCH ×3 (03:45→07:40)
[2021-01-30] MEDS: PERCOCET 5MG/325MG TAB PO PRN (04:42)
[2021-01-30] MEDS: HEPARIN SOD (PORCINE) 5000UNITS/ML 1ML VIAL/SYRINGE SQ SCH (05:14)
[2021-01-30] MEDS: methylPREDNISolone 40MG 1ML VIAL IV SCH (05:14)
[2021-01-30 06:00] VITALS: BP 121/78
[2021-01-30 06:01] LABS: BASO % 0.1 % (0.0-1.0); EOS % 0.1 % (0.0-3.0); HEMATOCRIT 38.3 % (42.0-52.0); HEMOGLOBIN 11.8 g/dl (13.5-17.5); LYMPH # 1.2 10^3/uL (1.5-5.0); LYMPH % 7.4 % (24.0-44.0); MEAN CORPUSCULAR HEMOGLOBIN 25.8 pg (27.0-33.0); MEAN CORPUSCULAR HGB CONC 30.8 g/dl (32.0-36.5); MEAN CORPUSCULAR VOLUME 83.6 fl (80.0-96.0); MONO # 0.9 10^3/uL (0.0-0.8); MONO % 5.5 % (2.0-8.0); NEUTROPHILS # 14.4 10^3/uL (1.5-8.5); NEUTROPHILS % 86.1 % (36.0-66.0); PLATELET COUNT, AUTOMATED 368 10^3/uL (150-450); RED BLOOD COUNT 4.58 10^6/uL (4.30-6.10); WHITE BLOOD COUNT 16.8 10^3/uL (4.0-10.0)
[2021-01-30 06:32] LABS: BLOOD UREA NITROGEN 25 MG/DL (7-18); CALCIUM LEVEL 8.6 MG/DL (8.8-10.2); CARBON DIOXIDE LEVEL 33 MEQ/L (21-32); CHLORIDE LEVEL 102 MEQ/L (98-107); GLOMERULAR FILTRATION RATE > 60.0 (>49); GLUCOSE, FASTING 297 MG/DL (70-100); POTASSIUM SERUM 4.1 MEQ/L (3.5-5.1); SODIUM LEVEL 142 MEQ/L (136-145)
[2021-01-30] MEDS: HumaLOG INSULIN (NovoLOG) PER UNIT SC SCH (08:05)
[2021-01-30] MEDS: DULoxetine 30 MG CAP (CYMBALTA) PO SCH (08:05)
[2021-01-30] MEDS: TAMSULOSIN 0.4 MG CAP PO SCH (08:06)
[2021-01-30 08:09] VITALS: BP 123/78
[2021-01-30] MEDS: METOPROLOL TART 25 MG TABLET PO SCH (08:09)
[2021-01-30] MEDS ORDERED: FUROSEMIDE 40 MG TAB PO SCH (09:00)
[2021-01-30] MEDS ORDERED: predniSONE 20 MG TAB PO SCH (09:00)
[2021-01-30] MEDS ORDERED: FURO40TA2 PO (09:16)
[2021-01-30] MEDS ORDERED: PRED10TA2 PO (09:16)
--- NOTE | 2021-01-30 09:59 | ECHO ---
ECHOCARDIOGRAM DATE OF PROCEDURE: 01/29/2021 Age: 65 Gender: Male Height: 70 inches Weight: 257 pounds Body Surface Area: 2.33 meters squared Inpatient [address] [facility], room 4234 REFERRING PHYSICIAN: Dr. Maria R Hills INDICATION: Edema MEASUREMENTS: 2D Measurements: RV - 4.1 cm LV - 4.9 cm Septum 1.1 cm Posterior wall 1.1 cm Aortic Root 3.4 cm LA - 3.6 cm LVEF 65% Doppler Measurements: AV - 2.84 m/s LVOT - 0.95 m/s LVOT diameter 2.0 cm Mean AV systolic gradient 21 mmHg Dimensionless index 0.36 MV-E 73, A 93, E/A ratio 0.8 E prime medial 9.5, A prime medial 11.8, E prime lateral 11.8 Average E/E prime ratio 6.8/PCWP - 10.5 mmHg PV - 1.2 m/s Pulmonary artery acceleration time 82 msec PASP 45 mmHg IVC - 1.8 cm COMMENTS: Sinus tachycardia without intraventricular conduction disturbance. Technically very difficult study in light of the patient's body habitus and ability of the echo stenographer. All measurements are somewhat suspect. M-Mode and 2-dimensional echocardiography was performed with pulse, continuous wave, color flow and tissue Doppler study. Normal-appearing left ventricular size, wall thickness and wall motion. Normal left atrial size with grade 1 left ventricular (LV) diastolic dysfunction but current estimated mean left atrial pressure within normal limits. Right heart chamber sizes appear to be upper limits of normal to slightly increased with normal wall motion. Estimated pulmonary arterial pressure was moderately increased. Normal inferior vena cava (IVC) size and collapse against an elevated central venous pressure as a cause of the observed edema. Normal aortic dimensions. Mild calcific aortic stenosis without apparent insufficiency. Mild degenerative changes of the mitral valvular apparatus without clear valvular dysfunction. Normal-appearing tricuspid valve with very mild insufficiency. Unable to visualize any intracardiac mass or pericardial effusion. Comparing today's study with that of August 16, 2020 there did not appear to be a significant change.
[2021-01-30] MEDS ORDERED: MOXI400T11 PO (10:45)
--- NOTE | 2021-01-30 10:48 | DS.PDOC ---
Discharge Summary General Date of Admission Jan 26, 2021 at 15:57 Date of Discharge 01/30/2021 Discharge Summary PROCEDURES PERFORMED DURING STAY: [None]. ADMITTING DIAGNOSES / DISCHARGE DIAGNOSES: Acute on Chronic COPD exacerbation Chronic hypoxic respiratory failure Chronic lower extremity edema with chronic venous insufficiency - likely 2/2 Decompensated Diastolic CHF (EF: 65%) DM2 with steroid-induced hyperglycemia 2/2 corticosteroids DLP HTN Anxiety / Depression BPH Obesity DVT prophylaxis COMPLICATIONS/CHIEF COMPLAINT: Shortness of breath HISTORY OF PRESENT ILLNESS: Patient is a 65-year-old male with a PMHx of COPD, ASH, HTN, DM2, Hx of Nephrolithiasis, Peripheral neuropathy, Anxiety / Depression, BPH, Morbid obesity, who presented to the emergency room with complaint of shortness of breath and a nonproductive cough. Patient was admitted to the hospital service for further evaluation and treatment. Initially patient was treated for COPD exacerbation and was subsequently started on diuretic therapy for suspected decompensated CHF. Patient was seen and examined at the bedside. Patient reported that his breathing has had some improvement this morning. Has not experience any significant cough. No chest pain or palpitations. His lower extremities have had improvement. Again, has not spent any nausea, vomiting, abdominal discomfort, diarrhea, or discomfort with urination. HOSPITAL COURSE: Acute on Chronic COPD exacerbation - No significant wheezing appreciated. This morning - Currently he is on his baseline level of oxygen - Will start Prednisone taper today; will DC Solumedrol - c/w Moxifloxacin (Day #4); will complete antibiotic course as an outpatient - c/w inhaled therapy as ordered - Will have outpatient follow-up with pulmonology within the next 7 days Chronic hypoxic respiratory failure - Will maintain saturation between 88-92% Chronic lower extremity edema with chronic venous insufficiency - likely 2/2 Decompensated Diastolic CHF (EF: 65%) - Has been negative fluid balanced over last 48 hours - Strict ins/outs, daily weights, fluid restriction of 1700cc - c/w Furosemide; transitioned to oral regimen and will continue on discharge - Will have outpatient follow-up with cardiology next 7 days DM2 with steroid-induced hyperglycemia 2/2 corticosteroids - c/w ISS and Levemir DLP - c/w Atorvastatin and ASA 81 HTN - BP well controlled - c/w Furosemide / Metoprolol Anxiety / Depression - c/w Duloxetine BPH - c/w Tamsulosin Obesity - BMI of 36.9 - Complicating medical care DVT prophylaxis - c/w Heparin DISCHARGE MEDICATIONS: Please see below. ALLERGIES: Please see below. PHYSICAL EXAMINATION ON DISCHARGE: Vitals (See below) General: Sitting up in bed, appears to be comfortable without any acute distress, is oriented to person, place and time HEENT: Normocephalic and atraumatic CVS: +S1S2 Lungs: Fair entry, again is diminished bilaterally. No significant wheezing, crackles or rhonchi Abdomen: Abdomen is soft, nondistended, non-tender, obese Extremities: Lower extremity edema has had improvement LABORATORY DATA: Please see below. IMAGING: CXR 01/26: No acute cardiopulmonary process appreciated. Vascular US 01/26: No evidence for deep venous thrombosis. CTA chest 01/27: No CT evidence of pulmonary embolus. Diaphragmatic hernia on the right Bochdalek's type transmits abdominal fat as before. Fatty infiltration of the liver again noted.2 emphysematous changes in the upper lobes of the lungs. Otherwise negative. ECHO 01/29: Technically very difficult study in light of the patient's body habitus and ab ility of the echo stenographer. All measurements are somewhat suspect. M-Mode and 2-dimensional echocardiography was performed with pulse, continuous wave, color flow and tissue Doppler study. Normal-appearing left ventricular size, wall thickness and wall motion. Normal left atrial size with grade 1 left ventricular (LV) diastolic dysfunction but current estimated mean left atrial pressure within normal limits. Right heart chamber sizes appear to be upper limits of normal to slightly increased with normal wall motion. Estimated pulmonary arterial pressure was moderately increased. Normal inferior vena cava (IVC) size and collapse against an elevated central venous pressure as a cause of the observed edema. Normal aortic dimensions. Mild calcific aortic stenosis without apparent insufficiency. Mild degenerative changes of the mitral valvular apparatus without clear valvular dysfunction. Normal-appearing tricuspid valve with very mild insufficiency. Unable to visualize any intracardiac mass or pericardial effusion. Comparing today's study with that of August 16, 2020 there did not appear to be a significant change. ACTIVITY: [As tolerated]. DISCHARGE PLAN: Follow-up with primary care provider, cardiology and pulmonology within the next 7 days Remain compliant with treatment plan and medications Return to the ER if you experience any problems DISPOSITION: Home with services DISCHARGE CONDITION: [Stable]. TIME SPENT ON DISCHARGE: 35 minutes. Vital Signs/I&Os Vital Signs Date Time Temp Pulse Resp B/P (MAP) Pulse Ox O2 Delivery O2 Flow Rate FiO2 01/30/21 08:09 93 123/78 01/30/21 06:00 97.9 18 92 Nasal Cannula 1.5 I&O- Last 24 Hours up to 6 AM 01/30/21 05:59 Intake Total 1660 ml Output Total 2175 ml Balance -515 ml Laboratory Data Labs 24H Laboratory Tests 2 01/29/21 11:52: Bedside Glucose (Misc Panel) 369H 01/29/21 17:06: Bedside Glucose (Misc Panel) 347H 01/29/21 21:03: Bedside Glucose (Misc Panel) 403H 01/30/21 05:42: Immature Granulocyte % (Auto) 0.8, Neutrophils (%) (Auto) 86.1H, Lymphocytes (%) (Auto) 7.4L, Monocytes (%) (Auto) 5.5, Eosinophils (%) (Auto) 0.1, Basophils (%) (Auto) 0.1, Neutrophils # (Auto) 14.4H, Lymphocytes # (Auto) 1.2L, Monocytes # (Auto) 0.9H, Eosinophils # (Auto) 0.0, Basophils # (Auto) 0.0, Nucleated Red Blood Cells % (auto) 0.0, Anion Gap 7L, Glomerular Filtration Rate > 60.0, Calcium Level 8.6L CBC/BMP Laboratory Tests 01/30/21 05:42 FSBS Laboratory Tests Test 01/29/21 11:52 01/29/21 17:06 01/29/21 21:03 Range/Units Bedside Glucose (Misc Panel) 369 347 403 80-115 MG/DL Microbiology Microbiology 01/26/21 Respiratory Virus Panel (PCR) ([facility]) - Final, Complete Discharge Medications Scheduled Aspirin (Aspirin EC) 81 Mg Tablet.dr, 81 MG PO QHS, (Reported) Atorvastatin Calcium (Atorvastatin Calcium) 10 Mg Tablet, 10 MG PO QHS, (Reported) Duloxetine Hcl (Duloxetine HCl) 30 Mg Cap, 60 MG PO QAM, (Reported) Duloxetine Hcl (Duloxetine HCl) 30 Mg Capsule.dr, 30 MG PO QHS, (Reported) Furosemide (Furosemide) 40 Mg Tablet, 40 MG PO BID@ Glimepiride (Glimepiride) 2 Mg Tablet, 2 MG PO BID, (Reported) Insulin Detemir (Levemir Flextouch) 100 Unit/1 Ml Insuln.pen, 10 UNIT SC QHS, (Reported) Metoprolol Tartrate (Metoprolol Tartrate) 25 Mg Tablet, 25 MG PO BID, (Reported) Prednisone (Prednisone) 10 Mg Tablet, 10 MG PO TAPER Take 4 tabs daily x 3 days, then 3 tabs daily x 3 days, then 2 tabs daily x 3 days, then 1 tab daily x 3 days and stop Tamsulosin HCl (Flomax) 0.4 Mg Cap, 0.8 MG PO DAILY, (Reported) Scheduled PRN Albuterol Sulfate (Ventolin Hfa) 18 Gm Hfa.aer.ad, 2 PUFFS INH QID PRN for SHORTNESS OF BREATH, (Reported) Epinephrine (Epipen 2-Shashi) 0.3 Mg/0.3 Ml Inj, 0.3 MG INJ ASDIRECTED PRN for ANAPHYLAXIS, (Reported) Ipratropium/Albuterol Sulfate (Iprat-Albut 0.5-3(2.5) mg/3 ml) 3 Ml Ampul.neb, 1 VIAL INH QID PRN for SOB/WHEEZING, (Reported) Ketoconazole (Ketoconazole) 15 Gm Cream..g., 1 APLCT TOP BID PRN for RASH, (Reported) APPLY TO FACE Trazodone HCl (Trazodone HCl) 50 Mg Tablet, 50 MG PO QHS PRN for INSOMNIA, (Reported) Allergies Coded Allergies: Penicillins (Verified Allergy, Severe, anaphylaxis, 06/19/20) per Dr. García primidone (Verified Allergy, Severe, 01/26/21) hives codeine (Verified Allergy, Intermediate, HIVES, 11/20/20) ibuprofen (Verified Allergy, Intermediate, face swelling, 11/20/20) BRAND ADVIL bee venom protein (honey bee) (Verified Allergy, Unknown, 06/19/20) LISA VIRAMONTES MD Jan 30, 2021 10:48
== END 2021-01-30 10:59 | disposition home or self-care (01) | DRG 190 ==
LOC: M ED 14:11 → M ED INP 15:57 → M MSPAV 23:38
PROVIDERS: ADMIT General Practice; ATTEND Internal Medicine
DX: J44.1 Chronic obstructive pulmonary disease with (acute) exacerbation (principal); I50.33 Acute on chronic diastolic (congestive) heart failure; J96.11 Chronic respiratory failure with hypoxia; E66.01 Morbid (severe) obesity due to excess calories; E11.42 Type 2 diabetes mellitus with diabetic polyneuropathy; I11.0 Hypertensive heart disease with heart failure; F41.9 Anxiety disorder, unspecified; F32.9 Major depressive disorder, single episode, unspecified; E11.65 Type 2 diabetes mellitus with hyperglycemia; K44.9 Diaphragmatic hernia without obstruction or gangrene; G47.33 Obstructive sleep apnea (adult) (pediatric); Z87.891 Personal history of nicotine dependence; Z99.81 Dependence on supplemental oxygen; Z79.82 Long term (current) use of aspirin; Z79.84 Long term (current) use of oral hypoglycemic drugs; Z79.899 Other long term (current) drug therapy; N40.0 Benign prostatic hyperplasia without lower urinary tract symptoms; Z68.36 Body mass index [BMI] 36.0-36.9, adult

== ENCOUNTER 2021-02-16 15:59 | Inpatient (IN) | payer MEDICARE ==
[~2021-02-16] VITALS: Ht 180.3 cm; Wt 116.8 kg
[~2021-02-16 15:59] MED LIST changes: +FURO40TA2 PO; +KETO2CR TOP; +MOXI400T11 PO; +TRAZ-252 PO
[2021-02-16] MEDS ORDERED: FUROSEMIDE 100MG/10ML VIAL (J1940) IV ONE (17:00)
[2021-02-16] MEDS ORDERED: methylPREDNISolone 125MG 2ML VIAL IV ONE (17:20)
[2021-02-16 17:37] LABS: VENOUS BASE EXCESS 4.3 (-2.0-2.0); VENOUS HCO3 30.5 MEQ/L (23.0-27.0); VENOUS O2 SATURATION 86.8 % (60.0-80.0); VENOUS PARTIAL PRESSURE CO2 51.4 mmHg (38.0-50.0); VENOUS PARTIAL PRESSURE O2 51.8 mmHg (30.0-50.0); VENOUS PH 7.391 UNITS (7.330-7.430); VENOUS TOTAL CO2 32.1 MEQ/L (24.0-28.0)
[2021-02-16 17:41] LABS: BASO # 0.1 10^3/uL (0.0-0.2); BASO % 0.9 % (0.0-1.0); EOS # 0.5 10^3/uL (0.0-0.5); EOS % 3.3 % (0.0-3.0); HEMATOCRIT 46.2 % (42.0-52.0); LYMPH # 1.6 10^3/uL (1.5-5.0); LYMPH % 10.8 % (24.0-44.0); MEAN CORPUSCULAR HEMOGLOBIN 25.9 pg (27.0-33.0); MEAN CORPUSCULAR HGB CONC 30.3 g/dl (32.0-36.5); MEAN CORPUSCULAR VOLUME 85.6 fl (80.0-96.0); MONO # 0.8 10^3/uL (0.0-0.8); MONO % 5.7 % (2.0-8.0); NEUTROPHILS # 11.4 10^3/uL (1.5-8.5); NEUTROPHILS % 78.9 % (36.0-66.0); PLATELET COUNT, AUTOMATED 331 10^3/uL (150-450); WHITE BLOOD COUNT 14.4 10^3/uL (4.0-10.0)
--- NOTE | 2021-02-16 17:46 | REP ---
INDICATION: DYSPNEA/COUGH. COMPARISON: Portable chest, 01/26/2021. TECHNIQUE: AP portable chest image was obtained. FINDINGS: There is a ground-glass opacity in the lower lung zone on the right which may be loculated fluid within the oblique inter lobar fissure. Upper lobe predominant emphysema. The lungs are otherwise clear. There is no blunting of either costophrenic angle. The heart borders and mediastinum are normal. There is calcific vascular disease of the thoracic aorta. IMPRESSION: 1. Ground-glass opacity in the lower lung zone on the right may be a loculated effusion in the inter lobar fissure. 2. Other findings as noted, not significantly changed. <Electronically signed by Atif Campo > 02/16/21 [id number]
[2021-02-16 18:14] LABS: ALBUMIN 3.6 GM/DL (3.2-5.2); ALT/SGPT 26 U/L (12-78); BILIRUBIN,DIRECT 0.2 MG/DL (0.0-0.2); BILIRUBIN,TOTAL 0.5 MG/DL (0.2-1.0); BLOOD UREA NITROGEN 18 MG/DL (7-18); CALCIUM LEVEL 9.2 MG/DL (8.8-10.2); CARBON DIOXIDE LEVEL 31 MEQ/L (21-32); CHLORIDE LEVEL 100 MEQ/L (98-107); CK-MB VALUE MASS 1.7 NG/ML (<3.6); CPK CREATINE PHOSPHOKINASE 51 U/L (39-308); CREATININE FOR GFR 0.89 MG/DL (0.70-1.30); GLOMERULAR FILTRATION RATE > 60.0 (>49); GLUCOSE, FASTING 181 MG/DL (70-100); MB/CK RELATIVE INDEX 3.33 (< OR =4); NT-PRO BNP 27 PG/ML (<125); POTASSIUM SERUM 4.3 MEQ/L (3.5-5.1); SODIUM LEVEL 137 MEQ/L (136-145); THYROXINE (T4) 6.6 UG/DL (4.5-12.0); TOTAL PROTEIN 7.4 GM/DL (6.4-8.2); TROPONIN I < 0.02 NG/ML (< 0.10)
[2021-02-16] MEDS ORDERED: IPRATROPIUM 0.02% SOLN 0.5MG 2.5ML NEB NEB ONE (18:20)
[2021-02-16] MEDS ORDERED: LEVALBUTEROL 1.25 MG/0.5 ML CONCENTRATE NEB NEB ONE (18:20)
[2021-02-16] MEDS ORDERED: METOPROLOL TART 25 MG TABLET PO ONE (18:20)
--- NOTE | 2021-02-16 20:21 | HPEPDOC ---
[facility] Medical History & Physical Date of Admission Feb 16, 2021 Date of Service: Feb 16, 2021 History and Physical CHIEF COMPLAINT: Shortness of breath HISTORY OF PRESENT ILLNESS: 65-year-old male history of oxygen dependent COPD, morbid obesity, insulin dependent diabetes, and hypertension who presents because of a ten-day history of worsening shortness of breath. Patient was recently admitted last month and frequently before that for similar presentation for COPD exacerbation. He is not aware of any clear triggers at home he does have carpet in the living room and does have pets and congested and not allergic to them. Patient tells me that he feels his inhalers and a longer working at home and over the past 10 days and just kept getting worse to the point where he had limited ambulation due to shortness of breath initially was on ambulation now it's at rest. His had wanted him to come to the hospital sooner but he didn't want to come. He has appointments in the coming weeks to be seen by pulmonology and cardiology. He endorses a cough without sputum production. He denies fevers or chills or chest pain he does endorse worsening lower extremity edema. He does not use steroids regularly at home. In the emergency department patient was found to have diminished breath sounds and wheezing. Patient will be admitted for medical management. PAST MEDICAL/SURGICAL HISTORY: COPD oxygen dependent 2 L at home Chronic hypoxic respiratory failure Morbid obesity Insulin dependent diabetes Essential tremors Hypertension Hyperlipidemia Anxiety/depression Chronic peripheral neuropathy History of right posterior diaphragmatic hernia History of renal stones BPH Obstructive sleep apnea Umbilical hernia repair twice Carpal tunnel release Trigger finger release SOCIAL HISTORY: Denies alcohol use Denies tobacco use states he quit more than 20 years ago Denies illicit drug use FAMILY HISTORY: Reviewed and none contributory to this admission ALLERGIES: Please see below. REVIEW OF SYSTEMS: 10 point review of systems complete all negative otherwise stated in HPI HOME MEDICATIONS: Please see below. PHYSICAL EXAMINATION: Constitutional: Awake and alert, in no apparent distress ENT: Sclera are clear. Mucosa is moist. Respiratory: Lungs severely diminished breath sounds with interspersed expirato ry wheezing bilaterally. able to speak in full sentences. on 2L oxygen NC at 92%. Cardiovascular: Regular rate and rhythm Gastrointestinal: Abdomen is soft, obese, non distended, non tender, BS present. Musculoskeletal: 3+ lower extremity pitting edema up to his knees Neurologic: No focal neurological deficit. Mental Status: A&O x3, normal affect Skin: Seborrheic dermatitis LABORATORY DATA: See below. IMAGING: See chart MICROBIOLOGY: Please see below. ASSESSMENT/PLAN 65-year-old male history of oxygen dependent COPD, morbid obesity, insulin dependent diabetes, and hypertension who presents because of a ten-day history of worsening shortness of breath found to have COPD exacerbation as well as being fluid overloaded admitted for medical optimization. # Acute on chronic COPD exacerbation: - On exam his breath sounds are diminished with poor air entry bilaterally with some mild end expiratory wheezing. - Continue supplemental oxygen by nasal cannula. - Duonebs scheduled and PRN - Azithromycin for 3 days for anti-inflammatory effect - Symbicort scheduled - Prednisone 40mg for 4 more days. - Incentive spirometry. - Has follow-up with pulmonology ready set up in the coming weeks # Acute on chronic CHF exacerbation: clinically fluid overloaded 3+ LE edema. Last echo january 2021 shows mild diastolic dysfunction with moderately elevated pulmonary arterial pressures. IV lasix. Fluid restrict. Monitor ins and outs. Home lasix may have to be increased at time of discharge. Has following up with cardiology. # IDDM: ISS. Frequent Accu-Cheks. Hypoglycemic precautions. Continue home Levemir. # Chronic peripheral neuropathy/essential tremors: Refusing to try gabapentin or Lyrica prefers Percocet. Will also continue home duloxetine. # Hypertension: Continue home meds. Monitor and titrate # Anxiety/depression:duloxetine. # Morbid obesity: BMI 35. Complicates care. # BPH: tamsulosin # HLD: atorvastatin # DVT prophylaxis: Lovenox A Yousef Hospitalist Vital Signs Vital Signs Date Time Temp Pulse Resp B/P (MAP) Pulse Ox O2 Delivery O2 Flow Rate FiO2 02/16/21 18:24 144 158/113 02/16/21 16:45 Nasal Cannula 2.0 02/16/21 16:02 96.9 30 95 Laboratory Data Labs 24H Laboratory Tests 2 02/16/21 17:02: Immature Granulocyte % (Auto) 0.4, Neutrophils (%) (Auto) 78.9H, Lymphocytes (%) (Auto) 10.8L, Monocytes (%) (Auto) 5.7, Eosinophils (%) (Auto) 3.3H, Basophils (%) (Auto) 0.9, Neutrophils # (Auto) 11.4H, Lymphocytes # (Auto) 1.6, Monocytes # (Auto) 0.8, Eosinophils # (Auto) 0.5, Basophils # (Auto) 0.1, Nucleated Red Blood Cells % (auto) 0.0, Blood Gas Bicarbonate Standard 28.0, Venous Blood pH 7.391, Venous Blood Partial Pressure CO2 51.4H, Venous Blood Partial Pressure O2 51.8H, Venous Blood Total Carbon Dioxide 32.1H, Venous Blood HCO3 30.5H, Venous Blood Oxygen Saturation 86.8H, Venous Blood Base Excess 4.3H, Anion Gap 6L, Glomerular Filtration Rate > 60.0, Lactic Acid Level 1.5, Calcium Level 9.2, Total Bilirubin 0.5, Direct Bilirubin 0.2, Aspartate Amino Transf (AST/SGOT) 11, Alanine Aminotransferase (ALT/SGPT) 26, Alkaline Phosphatase 112, Total Creatine Kinase 51, Creatine Kinase MB 1.7, Creatine Kinase MB Relative Index 3.33, Troponin I < 0.02, XZ-Wtz-I-Type Natriuretic Peptide 27, Total Protein 7.4, Albumin 3.6, Albumin/Globulin Ratio 0.9, Thyroid Stimulating Hormone (TSH) 1.250, Thyroxine (T4) 6.6 CBC/BMP Laboratory Tests 02/16/21 17:02 Microbiology Microbiology 02/16/21 Respiratory Virus Panel (PCR) ([facility]) - Final, Complete 02/16/21 Blood Culture, Received Pending Home Medications Scheduled Aspirin (Aspirin EC) 81 Mg Tablet.dr, 81 MG PO QHS Atorvastatin Calcium (Atorvastatin Calcium) 20 Mg Tablet, 20 MG PO QHS Duloxetine Hcl (Duloxetine HCl) 30 Mg Cap, 60 MG PO QAM Duloxetine Hcl (Duloxetine HCl) 30 Mg Capsule.dr, 30 MG PO QHS Furosemide (Furosemide) 40 Mg Tablet, 40 MG PO DAILY Glimepiride (Glimepiride) 2 Mg Tablet, 2 MG PO BID Insulin Detemir (Levemir Flextouch) 100 Unit/1 Ml Insuln.pen, 12 UNIT SC QHS Metoprolol Tartrate (Metoprolol Tartrate) 25 Mg Tablet, 25 MG PO BID Tamsulosin HCl (Flomax) 0.4 Mg Cap, 0.4 MG PO BID Scheduled PRN Epinephrine (Epipen 2-Shashi) 0.3 Mg/0.3 Ml Inj, 0.3 MG INJ ASDIRECTED PRN for ANAPHYLAXIS Ipratropium/Albuterol Sulfate (Iprat-Albut 0.5-3(2.5) mg/3 ml) 3 Ml Ampul.neb, 1 VIAL INH QID PRN for SOB/WHEEZING Ketoconazole (Ketoconazole) 15 Gm Cream..g., 1 APLCT TOP BID PRN for RASH APPLY TO FACE Trazodone HCl (Trazodone HCl) 50 Mg Tablet, 50 MG PO QHS PRN for INSOMNIA Allergies Coded Allergies: Penicillins (Verified Allergy, Severe, anaphylaxis, 06/19/20) per Dr. García primidone (Verified Allergy, Severe, 01/26/21) hives codeine (Verified Allergy, Intermediate, HIVES, 11/20/20) ibuprofen (Verified Allergy, Intermediate, face swelling, 11/20/20) BRAND ADVIL bee venom protein (honey bee) (Verified Allergy, Unknown, 06/19/20) JAGJIT HOLLAND MD Feb 16, 2021 20:20
[2021-02-16] MEDS ORDERED: ATOR1TAB21 PO (20:22)
[2021-02-16] MEDS ORDERED: FURO40TA2 PO (20:22)
[2021-02-16] MEDS ORDERED: GLUCAGON INJ 1MG VIAL SC PRN (20:25)
[2021-02-16] MEDS ORDERED: HOME MED LIST COMPLETE! XX SCH (20:25)
[2021-02-16] MEDS ORDERED: GLUCOSE 4GM CHEW TABLET PO PRN (20:25)
[2021-02-16] MEDS ORDERED: IPRATROPIUM 0.5MG/ALBUTEROL 2.5MG INH SOL UD 3ML (DUONEB) NEB PRN (20:25)
[2021-02-16] MEDS ORDERED: DEXTROSE 50% 50 ML SYRINGE IV PRN (20:25)
[2021-02-16] MEDS ORDERED: ACETAMINOPHEN TAB 650MG DOSE (2X325MG) PO PRN (20:25)
[2021-02-16] MEDS ORDERED: MOM 30ML SUSPENSION UDC PO PRN (20:25)
[2021-02-16] MEDS ORDERED: traZODone 50 MG TAB PO PRN (20:35)
[2021-02-16] MEDS ORDERED: TAMSULOSIN 0.4 MG CAP PO SCH (21:00)
[2021-02-16] MEDS ORDERED: LEVEMIR (INSULIN DETEMIR) 1 UNITS/0.01ML SC SCH (21:00)
[2021-02-16 23:15] VITALS: BP 136/95
[2021-02-17] MEDS: ASPIRIN 81MG ENTERIC TABLET PO SCH ×2 (00:02→20:20)
[2021-02-17] MEDS: AZITHROMYCIN 250MG TABLET PO SCH ×2 (00:02→20:20)
[2021-02-17] MEDS: ATORVASTATIN 20 MG TAB PO SCH ×2 (00:03→20:20)
[2021-02-17] MEDS: DOCUSATE SODIUM 100MG CAPSULE PO SCH ×3 (00:03→20:22)
[2021-02-17] MEDS: DULoxetine 30 MG CAP (CYMBALTA) PO SCH ×3 (00:03→20:21)
[2021-02-17] MEDS: HumaLOG INSULIN (NovoLOG) PER UNIT SC SCH ×5 (00:10→20:24)
[2021-02-17] MEDS: PERCOCET 5MG/325MG TAB PO PRN ×2 (01:15→20:23)
[2021-02-17] MEDS: KETOCONAZOLE 2% CREAM TOP PRN ×2 (01:33→14:01)
[2021-02-17] MEDS: IPRATROPIUM 0.5MG/ALBUTEROL 2.5MG INH SOL UD 3ML (DUONEB) NEB SCH ×7 (03:38→23:15)
[2021-02-17 04:34] VITALS: BP 135/59
[2021-02-17 05:17] LABS: HEMATOCRIT 41.3 % (42.0-52.0); HEMOGLOBIN 12.7 g/dl (13.5-17.5); MEAN CORPUSCULAR HEMOGLOBIN 25.8 pg (27.0-33.0); MEAN CORPUSCULAR HGB CONC 30.8 g/dl (32.0-36.5); MEAN CORPUSCULAR VOLUME 83.8 fl (80.0-96.0); PLATELET COUNT, AUTOMATED 342 10^3/uL (150-450); RED BLOOD COUNT 4.93 10^6/uL (4.30-6.10); WHITE BLOOD COUNT 14.7 10^3/uL (4.0-10.0)
[2021-02-17 05:37] LABS: ALBUMIN 3.2 GM/DL (3.2-5.2); ALT/SGPT 23 U/L (12-78); BILIRUBIN,TOTAL 0.6 MG/DL (0.2-1.0); BLOOD UREA NITROGEN 22 MG/DL (7-18); CALCIUM LEVEL 8.9 MG/DL (8.8-10.2); CARBON DIOXIDE LEVEL 32 MEQ/L (21-32); CHLORIDE LEVEL 98 MEQ/L (98-107); CREATININE FOR GFR 0.98 MG/DL (0.70-1.30); GLOMERULAR FILTRATION RATE > 60.0 (>49); GLUCOSE, FASTING 292 MG/DL (70-100); MAGNESIUM LEVEL 2.1 MG/DL (1.8-2.4); POTASSIUM SERUM 4.8 MEQ/L (3.5-5.1); SODIUM LEVEL 135 MEQ/L (136-145); TOTAL PROTEIN 6.5 GM/DL (6.4-8.2)
[2021-02-17] MEDS: ENOXAPARIN 40MG/0.4ML SYRINGE (J1650 PER 10MG) SC SCH (08:18)
[2021-02-17] MEDS: FUROSEMIDE 100MG/10ML VIAL (J1940) IV SCH ×2 (08:19→17:46)
[2021-02-17] MEDS: LEVEMIR (INSULIN DETEMIR) 1 UNITS/0.01ML SC SCH ×2 (08:19→20:23)
[2021-02-17] MEDS: TAMSULOSIN 0.4 MG CAP PO SCH (08:20)
[2021-02-17] MEDS: predniSONE 20 MG TAB PO SCH (08:20)
[2021-02-17] MEDS: METOPROLOL TART 25 MG TABLET PO SCH ×2 (08:22→20:21)
[2021-02-17 08:31] VITALS: BP 127/80
[2021-02-17] MEDS ORDERED: metOLazone 5 MG TAB PO ONE (09:00)
--- NOTE | 2021-02-17 11:20 | IPNPDOC ---
Subjective Date Seen The patient was seen on 02/17/21. Subjective Chief Complaint/HPI Repots SOB and leg swelling is better. Objective Physical Examination General Exam: Positive: Alert, Cooperative, No Acute Distress Eye Exam: Positive: PERRLA, Conjunctiva & lids normal, EOMI; Negative: Sclera icteric ENT Exam: Positive: Atraumatic, Mucous membr. moist/pink, Pharynx Normal Neck Exam: Positive: Supple; Negative: JVD, thyromegaly Chest Exam: Positive: Diminished (in both sides); Negative: Rales, Rhonchi, Wheezing Heart Exam: Positive: Rate Normal, Regular Rhythm, Normal S1, Normal S2; Negative: Murmurs, Rubs Abdomen Exam: Positive: Normal bowel sounds, Soft; Negative: Tenderness Extremity Exam: Positive: Edema (3+); Negative: Clubbing, Cyanosis Psych Exam: Positive: Memory Intact, Oriented x 3 Assessment /Plan Assessment 65-year-old male history of oxygen dependent COPD, Obesity, Untreated ASH, insulin dependent diabetes, hypertension, diastolic CHF, moderate pulmonary hypertension, mild to moderate Aortic stenosis HTN, HLD, anxiety, Peripheral ne uropathy who presented because of a ten-day history of worsening shortness of breath. Patient was recently admitted last month and frequently before that for similar presentation for COPD exacerbation. He is allergic to grass, trees and pollen. He thinks his allergies have been very bad over the past month. He was admitted for CHF exacerbation , COPD exacerbation Diastolic CHF exacerbation Had 2 echos this year . Echo in jul shows EF of 50% with grade 1 diastolic dysfunction, moderate , mod pul htn possible right hert filure. [place] in January shows normal EF, grade 1 diastolic dysfunction, Mild . Continue lasix bid . Will give 1 dose of metalozone. COPD exacerbation continue Nebs and prednisone, azithromycin Chronic respiratory failure with hypoxia and hypercarbia continue oxygen supplementation DM uncontrolled due to steroids will increase long acting insulin, lispro as per sliding scale. Morbid obesity complicating care. Essential tremors Home meds Hypertension metoprolol Hyperlipidemia statin Anxiety/depression/insomnia trazodone Chronic peripheral neuropathy/ chronic back pain duloxetine, oxycodone BPH flomax Obstructive sleep apnea untreated. DOesnot use the CPAP. Plan/VTE VTE Prophylaxis Ordered?: Yes VS, I&O, 24H, Fishbone Vital Signs/I&O Vital Signs Date Time Temp Pulse Resp B/P (MAP) Pulse Ox O2 Delivery O2 Flow Rate FiO2 02/17/21 08:31 98.0 110 22 127/80 (96) 92 Nasal Cannula 2.0 I&O- Last 24 Hours up to 6 AM 02/17/21 06:00 Intake Total 180 ml Output Total 1000 ml Balance -820 ml Laboratory Data 24H LABS Laboratory Tests 2 02/16/21 17:02: Immature Granulocyte % (Auto) 0.4, Neutrophils (%) (Auto) 78.9H, Lymphocytes (%) (Auto) 10.8L, Monocytes (%) (Auto) 5.7, Eosinophils (%) (Auto) 3.3H, Basophils (%) (Auto) 0.9, Neutrophils # (Auto) 11.4H, Lymphocytes # (Auto) 1.6, Monocytes # (Auto) 0.8, Eosinophils # (Auto) 0.5, Basophils # (Auto) 0.1, Nucleated Red Blood Cells % (auto) 0.0, Blood Gas Bicarbonate Standard 28.0, Venous Blood pH 7.391, Venous Blood Partial Pressure CO2 51.4H, Venous Blood Partial Pressure O2 51.8H, Venous Blood Total Carbon Dioxide 32.1H, Venous Blood HCO3 30.5H, Venous Blood Oxygen Saturation 86.8H, Venous Blood Base Excess 4.3H, Anion Gap 6L, Glomerular Filtration Rate > 60.0, Lactic Acid Level 1.5, Calcium Level 9.2, Total Bilirubin 0.5, Direct Bilirubin 0.2, Aspartate Amino Transf (AST/SGOT) 11, Alanine Aminotransferase (ALT/SGPT) 26, Alkaline Phosphatase 112, Total Creatine Kinase 51, Creatine Kinase MB 1.7, Creatine Kinase MB Relative Index 3.33, Troponin I < 0.02, JM-Xtf-I-Type Natriuretic Peptide 27, Total Protein 7.4, Albumin 3.6, Albumin/Globulin Ratio 0.9, Thyroid Stimulating Hormone (TSH) 1.250, Thyroxine (T4) 6.6 02/17/21 00:01: Bedside Glucose (Misc Panel) 387H 02/17/21 04:43: Nucleated Red Blood Cells % (auto) 0.0, Anion Gap 5L, Glomerular Filtration Rate > 60.0, Calcium Level 8.9, Total Bilirubin 0.6, Aspartate Amino Transf (AST/SGOT) 10, Alanine Aminotransferase (ALT/SGPT) 23, Alkaline Phosphatase 98, Total Protein 6.5, Albumin 3.2, Albumin/Globulin Ratio 1.0, Magnesium Level 2.1 02/17/21 07:53: Bedside Glucose (Misc Panel) 275H CBC/BMP Laboratory Tests 02/16/21 17:02 02/17/21 04:43 Microbiology Microbiology 02/16/21 Blood Culture, Received Pending 02/16/21 Respiratory Virus Panel (PCR) ([facility]) - Final, Complete 02/16/21 Blood Culture, Received Pending OBEY MILNER MD Feb 17, 2021 11:20
[2021-02-17] MEDS: GLIMEPIRIDE 2 MG TAB PO SCH ×2 (11:49→20:20)
[2021-02-17 12:09] VITALS: BP 138/74
[2021-02-17 16:00] VITALS: BP 157/90
--- NOTE | 2021-02-17 19:49 | ECGEPIP ---
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
[2021-02-17 22:00] VITALS: BP 150/87
[2021-02-18] MEDS: IPRATROPIUM 0.5MG/ALBUTEROL 2.5MG INH SOL UD 3ML (DUONEB) NEB SCH ×6 (03:04→23:18)
[2021-02-18 06:00] VITALS: BP 137/98
[2021-02-18 07:57] LABS: HEMATOCRIT 42.7 % (42.0-52.0); HEMOGLOBIN 13.2 g/dl (13.5-17.5); MEAN CORPUSCULAR HEMOGLOBIN 26.4 pg (27.0-33.0); MEAN CORPUSCULAR HGB CONC 30.9 g/dl (32.0-36.5); MEAN CORPUSCULAR VOLUME 85.4 fl (80.0-96.0); PLATELET COUNT, AUTOMATED 347 10^3/uL (150-450); WHITE BLOOD COUNT 15.7 10^3/uL (4.0-10.0)
[2021-02-18 08:23] LABS: BLOOD UREA NITROGEN 30 MG/DL (7-18); CALCIUM LEVEL 8.8 MG/DL (8.8-10.2); CARBON DIOXIDE LEVEL 39 MEQ/L (21-32); CHLORIDE LEVEL 96 MEQ/L (98-107); CREATININE FOR GFR 1.14 MG/DL (0.70-1.30); GLOMERULAR FILTRATION RATE > 60.0 (>49); GLUCOSE, FASTING 295 MG/DL (70-100); POTASSIUM SERUM 3.5 MEQ/L (3.5-5.1); SODIUM LEVEL 142 MEQ/L (136-145)
[2021-02-18] MEDS: LEVEMIR (INSULIN DETEMIR) 1 UNITS/0.01ML SC SCH ×2 (08:54→21:29)
[2021-02-18] MEDS: FUROSEMIDE 100MG/10ML VIAL (J1940) IV SCH (08:55)
[2021-02-18] MEDS: HumaLOG INSULIN (NovoLOG) PER UNIT SC SCH ×4 (08:55→21:29)
[2021-02-18] MEDS: ENOXAPARIN 40MG/0.4ML SYRINGE (J1650 PER 10MG) SC SCH (08:56)
[2021-02-18] MEDS: DOCUSATE SODIUM 100MG CAPSULE PO SCH ×2 (08:57→21:28)
[2021-02-18] MEDS: PERCOCET 5MG/325MG TAB PO PRN (08:57)
[2021-02-18] MEDS: DULoxetine 30 MG CAP (CYMBALTA) PO SCH ×2 (08:58→21:28)
[2021-02-18] MEDS: TAMSULOSIN 0.4 MG CAP PO SCH (08:58)
[2021-02-18] MEDS: METOPROLOL TART 25 MG TABLET PO SCH ×2 (09:00→21:29)
[2021-02-18] MEDS: GLIMEPIRIDE 2 MG TAB PO SCH ×2 (09:01→21:28)
[2021-02-18] MEDS: predniSONE 20 MG TAB PO SCH (09:01)
--- NOTE | 2021-02-18 11:26 | IPNPDOC ---
Text Note Date of Service The patient was seen on 02/18/21. NOTE Subjective: Patient seen and examined at bedside. No acute overnight events reported. No new medical complaints this morning. Objective: General: NAD, sitting comfortably at edge of bed HEENT: NC/AT, EOMI Lungs: CTA B/L, poor inspiratory effort Heart: +S1S2, RRR Abd: soft, NT, +BS Ext: 1-2+ edema Neuro: no gross focal deficits Psych: AAOx3 A/P: 65-year-old male with PMHx including oxygen dependent COPD, Obesity, Untreated ASH, IDDM, HTN, HFpEF, moderate pulmonary hypertension, mild to moderate Aortic stenosis, HLD, anxiety, Peripheral neuropathy who presented for ten-day history of worsening shortness of breath. Frequent admissions for COPD exacerbation. He is allergic to grass, trees and pollen. He thinks his allergies have been very bad over the past month. He was admitted for CHF exacerbation , COPD exacerbation #acute/chronic HFpEF - Had 2 echos this year . Echo in jul shows EF of 50% with grade 1 diastolic dysfunction, moderate , mod pul htn possible right hert filure. [place] in January shows normal EF, grade 1 diastolic dysfunction, Mild . - slight bump in creatinine - will resume home dosage of lasix #COPD exacerbation continue Nebs and prednisone, azithromycin #Chronic respiratory failure with hypoxia and hypercarbia continue oxygen supplementation - baseline 2L home O2 - CT chest for further evaluation of cxr findings - loculated effusion? #DM uncontrolled worsening with steroids will increase long acting insulin, lispro as per sliding scale. #Morbid obesity complicating care. #Essential tremors Home meds #Hypertension metoprolol #Hyperlipidemia statin #Anxiety/depression/insomnia trazodone #Chronic peripheral neuropathy/ chronic back pain duloxetine, oxycodone #BPH flomax #Medical noncompliance. Further complicates care #Obstructive sleep apnea - non-compliant with CPAP. VS,Fishbone, I+O VS, Fishbone, I+O Laboratory Tests 02/18/21 07:33 Vital Signs Date Time Temp Pulse Resp B/P (MAP) Pulse Ox O2 Delivery O2 Flow Rate FiO2 02/18/21 09:27 18 88 Nasal Cannula 2.0 02/18/21 09:00 109 117/77 02/18/21 06:00 97.5 I&O- Last 24 Hours up to 6 AM 02/18/21 06:00 Intake Total 1330 ml Output Total 5075 ml Balance -3745 ml MELINDA FRASER MD Feb 18, 2021 11:26
--- NOTE | 2021-02-18 13:02 | REP ---
INDICATION: further eval cxr findings; sob. COMPARISON: CTA chest, 01/27/2021. CT chest without IV contrast, 01/11/2021. TECHNIQUE: Imaging protocol: Computed tomography of the chest without IV contrast. Contiguous 3 mm thick axial projection images were obtained through the chest. 2D sagittal and coronal reconstructions were performed. Radiation optimization: All CT scans at this facility use at least one of these dose optimization techniques: automated exposure control; mA and/or kV adjustment per patient size (includes targeted exams where dose is matched to clinical indication); or iterative reconstruction. FINDINGS: Lower neck: The thyroid gland is normal. There is no supraclavicular lymphadenopathy. Mediastinum: There are a few, not pathologically enlarged, mediastinal lymph nodes. Heart/thoracic aorta: The heart size is normal. There is no pericardial effusion. There is calcific vascular disease of the thoracic aorta and coronary arteries. Upper abdomen: There is calcific vascular disease of the abdominal aorta. Thoracic esophagus: Normal. Chest wall and axilla: The soft tissues of the chest wall appear normal. There is no axillary lymphadenopathy. There are no significant bony abnormalities of the chest. Lung parenchyma: There is moderate upper lobe predominant centrilobular emphysema. There is pleural-parenchymal scarring in the inferior segment of the lingula. There are no noncalcified pulmonary nodules or masses. There is a Bochdalek's type diaphragmatic hernia on the right, measuring 7.9 cm in diameter and extending 3.6 cm into the right hemithorax, with compression of the adjacent portion of the lower lobe of the right lung.. There is a benign calcified granuloma in the lower lobe of the left lung. There are no pleural effusions. IMPRESSION: 1. Emphysema. 2. There are no noncalcified pulmonary nodules. 3. Right Bochdalek's hernia with compressive atelectasis of the adjacent lung. 4. Other findings as noted, not significantly changed. <Electronically signed by Atif Campo > 02/18/21 [id number]
[2021-02-18 14:00] VITALS: BP 108/73
[2021-02-18] MEDS: AZITHROMYCIN 250MG TABLET PO SCH (21:28)
[2021-02-18] MEDS: ASPIRIN 81MG ENTERIC TABLET PO SCH (21:28)
[2021-02-18] MEDS: ATORVASTATIN 20 MG TAB PO SCH (21:28)
[2021-02-18 22:00] VITALS: BP 118/90
[2021-02-19] MEDS: IPRATROPIUM 0.5MG/ALBUTEROL 2.5MG INH SOL UD 3ML (DUONEB) NEB SCH ×2 (04:00→07:25)
[2021-02-19 06:00] VITALS: BP 127/74
[2021-02-19 06:54] LABS: HEMATOCRIT 39.8 % (42.0-52.0); HEMOGLOBIN 12.4 g/dl (13.5-17.5); MEAN CORPUSCULAR HEMOGLOBIN 26.4 pg (27.0-33.0); MEAN CORPUSCULAR HGB CONC 31.2 g/dl (32.0-36.5); MEAN CORPUSCULAR VOLUME 84.7 fl (80.0-96.0); PLATELET COUNT, AUTOMATED 353 10^3/uL (150-450); WHITE BLOOD COUNT 15.6 10^3/uL (4.0-10.0)
[2021-02-19 07:27] LABS: BLOOD UREA NITROGEN 22 MG/DL (7-18); CARBON DIOXIDE LEVEL 43 MEQ/L (21-32); CHLORIDE LEVEL 95 MEQ/L (98-107); CREATININE FOR GFR 0.87 MG/DL (0.70-1.30); GLOMERULAR FILTRATION RATE > 60.0 (>49); GLUCOSE, FASTING 83 MG/DL (70-100); POTASSIUM SERUM 2.9 MEQ/L (3.5-5.1); SODIUM LEVEL 141 MEQ/L (136-145)
[2021-02-19] MEDS: HumaLOG INSULIN (NovoLOG) PER UNIT SC SCH ×2 (07:30→12:53)
[2021-02-19] MEDS ORDERED: POTASSIUM CHLORIDE 10 MEQ SR TABLET PO ONE (08:00)
[2021-02-19 08:04] LABS: MAGNESIUM LEVEL 2.3 MG/DL (1.8-2.4)
[2021-02-19] MEDS: predniSONE 20 MG TAB PO SCH (08:21)
[2021-02-19] MEDS: DOCUSATE SODIUM 100MG CAPSULE PO SCH (08:21)
[2021-02-19] MEDS: TAMSULOSIN 0.4 MG CAP PO SCH (08:21)
[2021-02-19] MEDS: DULoxetine 30 MG CAP (CYMBALTA) PO SCH (08:21)
[2021-02-19] MEDS: GLIMEPIRIDE 2 MG TAB PO SCH (08:21)
[2021-02-19] MEDS: ENOXAPARIN 40MG/0.4ML SYRINGE (J1650 PER 10MG) SC SCH (08:21)
[2021-02-19 08:23] VITALS: BP 124/63
[2021-02-19] MEDS: METOPROLOL TART 25 MG TABLET PO SCH (08:23)
[2021-02-19] MEDS: LEVEMIR (INSULIN DETEMIR) 1 UNITS/0.01ML SC SCH (08:24)
[2021-02-19] MEDS: PERCOCET 5MG/325MG TAB PO PRN (09:40)
[2021-02-19] MEDS ORDERED: PRED10TA2 PO (10:00)
--- NOTE | 2021-02-19 13:09 | DS.PDOC ---
Discharge Summary General Date of Admission Feb 16, 2021 at 20:21 Date of Discharge 02/19/21 Discharge Summary PROCEDURES PERFORMED DURING STAY: [None]. DISCHARGE DIAGNOSES: #acute/chronic HFpEF #COPD exacerbation #Chronic respiratory failure with hypoxia and hypercarbia #DM #Morbid obesity #Essential tremors #Hypertension #Hyperlipidemia #Anxiety/depression/insomnia #Chronic peripheral neuropathy/ chronic back pain #BPH #Medical noncompliance. #Obstructive sleep apnea COMPLICATIONS/CHIEF COMPLAINT: Copd With Acute Exacerbation,Fluid Overload,Unspec. HISTORY OF PRESENT ILLNESS: 65-year-old male history of oxygen dependent COPD, morbid obesity, insulin dependent diabetes, and hypertension who presents because of a ten-day history of worsening shortness of breath. Patient was recently admitted last month and frequently before that for similar presentation for COPD exacerbation. He is not aware of any clear triggers at home he does have carpet in the living room and does have pets and congested and not allergic to them. Patient tells me that he feels his inhalers and a longer working at home and over the past 10 days and just kept getting worse to the point where he had limited ambulation due to shortness of breath initially was on ambulation now it's at rest. His had wanted him to come to the hospital sooner but he didn't want to come. He has appointments in the coming weeks to be seen by pulmonology and cardiology. He endorses a cough without sputum production. He denies fevers or chills or chest pain he does endorse worsening lower extremity edema. He does not use steroids regularly at home. In the emergency department patient was found to have diminished breath sounds and wheezing. Patient will be admitted for medical management. HOSPITAL COURSE: #acute/chronic HFpEF - Had 2 echos this year . Echo in jul shows EF of 50% with grade 1 diastolic dysfunction, moderate , mod pul htn possible right heart failure. Echo in January shows normal EF, grade 1 diastolic dysfunction, Mild . - compensated - resumed home lasix dosage #COPD exacerbation continue Nebs and prednisone - discharge with prednisone taper #Chronic respiratory failure with hypoxia and hypercarbia continue oxygen supplementation - baseline 2L home O2 - CT chest for further evaluation of cxr findings - no acute findings DISCHARGE MEDICATIONS: Please see below. ALLERGIES: Please see below. PHYSICAL EXAMINATION ON DISCHARGE: VITAL SIGNS: Please see below. General: NAD, sitting comfortably at edge of bed HEENT: NC/AT, EOMI Lungs: CTA B/L, poor inspiratory effort Heart: +S1S2, RRR Abd: soft, NT, +BS Ext: 1-2+ edema Neuro: no gross focal deficits Psych: AAOx3 LABORATORY DATA: Please see below. DISPOSITION: Discharge home DISCHARGE INSTRUCTIONS: 1. Follow up PCP in 3-5 days 2. Follow up cardiology, pulmonology as scheduled. DISCHARGE CONDITION: [Stable]. TIME SPENT ON DISCHARGE: 35 minutes. Vital Signs/I&Os Vital Signs Date Time Temp Pulse Resp B/P (MAP) Pulse Ox O2 Delivery O2 Flow Rate FiO2 02/19/21 10:10 16 02/19/21 09:40 94 Nasal Cannula 2.0 02/19/21 08:23 110 124/63 02/19/21 06:00 96.0 I&O- Last 24 Hours up to 6 AM 02/19/21 06:00 Intake Total 350 ml Output Total 2500 ml Balance -2150 ml Laboratory Data Labs 24H Laboratory Tests 2 02/18/21 17:28: Bedside Glucose (Misc Panel) 318H 02/18/21 19:51: Bedside Glucose (Misc Panel) 366H 02/19/21 05:57: Nucleated Red Blood Cells % (auto) 0.0, Anion Gap 3L, Glomerular Filtration Rate > 60.0, Calcium Level 9.0, Magnesium Level 2.3 02/19/21 11:38: Bedside Glucose (Misc Panel) 209H CBC/BMP Laboratory Tests 02/19/21 05:57 FSBS Laboratory Tests Test 02/18/21 17:28 02/18/21 19:51 02/19/21 11:38 Range/Units Bedside Glucose (Misc Panel) 318 366 209 80-115 MG/DL Microbiology Microbiology 02/16/21 Blood Culture - Preliminary, Resulted No Growth after 48 hours. All Specime... 02/16/21 Respiratory Virus Panel (PCR) ([facility]) - Final, Complete 02/16/21 Blood Culture - Preliminary, Resulted No Growth after 48 hours. All Specime... Discharge Medications Scheduled Aspirin (Aspirin EC) 81 Mg Tablet.dr, 81 MG PO QHS, (Reported) Atorvastatin Calcium (Atorvastatin Calcium) 20 Mg Tablet, 20 MG PO QHS, (Reported) Duloxetine Hcl (Duloxetine HCl) 30 Mg Cap, 60 MG PO QAM, (Reported) Duloxetine Hcl (Duloxetine HCl) 30 Mg Capsule.dr, 30 MG PO QHS, (Reported) Furosemide (Furosemide) 40 Mg Tablet, 40 MG PO DAILY, (Reported) Glimepiride (Glimepiride) 2 Mg Tablet, 2 MG PO BID, (Reported) Insulin Detemir (Levemir Flextouch) 100 Unit/1 Ml Insuln.pen, 12 UNIT SC QHS, (Reported) Metoprolol Tartrate (Metoprolol Tartrate) 25 Mg Tablet, 25 MG PO BID, (Reported) Prednisone (Prednisone) 10 Mg Tablet, 10 MG PO TAPER Take 4 tabs daily x 2 days, then 3 tabs daily x 2 days, then 2 tabs daily x 2 days, then 1 tab daily x 2 days and stop Tamsulosin HCl (Flomax) 0.4 Mg Cap, 0.4 MG PO BID, (Reported) Scheduled PRN Epinephrine (Epipen 2-Shashi) 0.3 Mg/0.3 Ml Inj, 0.3 MG INJ ASDIRECTED PRN for ANAPHYLAXIS, (Reported) Ipratropium/Albuterol Sulfate (Iprat-Albut 0.5-3(2.5) mg/3 ml) 3 Ml Ampul.neb, 1 VIAL INH QID PRN for SOB/WHEEZING, (Reported) Ketoconazole (Ketoconazole) 15 Gm Cream..g., 1 APLCT TOP BID PRN for RASH, (Reported) APPLY TO FACE Trazodone HCl (Trazodone HCl) 50 Mg Tablet, 50 MG PO QHS PRN for INSOMNIA, (Reported) Allergies Coded Allergies: Penicillins (Verified Allergy, Severe, anaphylaxis, 06/19/20) per Dr. García primidone (Verified Allergy, Severe, 01/26/21) hives codeine (Verified Allergy, Intermediate, HIVES, 11/20/20) ibuprofen (Verified Allergy, Intermediate, face swelling, 11/20/20) BRAND ADVIL bee venom protein (honey bee) (Verified Allergy, Unknown, 06/19/20) MELINDA FRASER MD Feb 19, 2021 13:09
== END 2021-02-19 13:18 | disposition home or self-care (01) | DRG 190 ==
LOC: M ED 15:59 → M ED INP 20:21 → ENRESERVTM 22:30 → ENRESERVDT 22:30 → M PCU 23:08 → M MSPAV 02-17 15:56
PROVIDERS: ADMIT Family Medicine; ATTEND Internal Medicine
DX: J44.1 Chronic obstructive pulmonary disease with (acute) exacerbation (principal); I50.33 Acute on chronic diastolic (congestive) heart failure; J96.11 Chronic respiratory failure with hypoxia; J96.12 Chronic respiratory failure with hypercapnia; E66.01 Morbid (severe) obesity due to excess calories; E11.42 Type 2 diabetes mellitus with diabetic polyneuropathy; I11.0 Hypertensive heart disease with heart failure; Z99.81 Dependence on supplemental oxygen; G25.0 Essential tremor; E78.5 Hyperlipidemia, unspecified; F41.9 Anxiety disorder, unspecified; F32.9 Major depressive disorder, single episode, unspecified; N40.0 Benign prostatic hyperplasia without lower urinary tract symptoms; G47.00 Insomnia, unspecified; E11.65 Type 2 diabetes mellitus with hyperglycemia; G47.33 Obstructive sleep apnea (adult) (pediatric); Z87.891 Personal history of nicotine dependence; Z68.35 Body mass index [BMI] 35.0-35.9, adult; Z79.82 Long term (current) use of aspirin; Z79.4 Long term (current) use of insulin; Z79.899 Other long term (current) drug therapy; Z88.0 Allergy status to penicillin; Z88.5 Allergy status to narcotic agent; Z88.6 Allergy status to analgesic agent; Z88.8 Allergy status to other drugs, medicaments and biological substances; Z91.030 Bee allergy status; Z91.19 Patient's noncompliance with other medical treatment and regimen

== ENCOUNTER 2021-03-03 09:17 | Observation (INO) | payer MEDICARE ==
[~2021-03-03] VITALS: Ht 177.8 cm; Wt 115.5 kg
[2021-03-03] MEDS ORDERED: COMBIVENT RESPIMAT 100-20MCG INHALER 4GM INH STA (12:12)
[2021-03-03] MEDS ORDERED: methylPREDNISolone 125MG 2ML VIAL IV ONE (12:15)
[2021-03-03] MEDS ORDERED: FUROSEMIDE 100MG/10ML VIAL (J1940) IV ONE (12:15)
--- NOTE | 2021-03-03 12:33 | REP ---
INDICATION: DYSPNEA/COUGH. COMPARISON: Comparison chest x-ray [address] February [address] chest [address] study 18 February 2021. TECHNIQUE: Portable upright AP chest radiograph. FINDINGS: The lungs are somewhat hyperinflated. There is a pleural based dome-shaped opacity at the right base corresponding with the Bochdalek's diaphragmatic hernia described on chest CT February 18, 2021. No new infiltrate is seen. Pulmonary vasculature is somewhat cephalized. The pleural angles are sharp. Heart is not enlarged. The aorta is calcific.. EKG electrodes are present . IMPRESSION: No new infiltrate. Diaphragmatic hernia on the right again visualized. Hyperinflation. Vascular cephalization.. <Electronically signed by Wally Horne > 03/03/21 [id number]
[2021-03-03 13:15] LABS: VENOUS BASE EXCESS 5.9 (-2.0-2.0); VENOUS HCO3 33.2 MEQ/L (23.0-27.0); VENOUS O2 SATURATION 61.4 % (60.0-80.0); VENOUS PARTIAL PRESSURE CO2 60.4 mmHg (38.0-50.0); VENOUS PARTIAL PRESSURE O2 34.9 mmHg (30.0-50.0); VENOUS PH 7.358 UNITS (7.330-7.430); VENOUS STANDARD HCO3 28.9 MEQ/L; VENOUS TOTAL CO2 35.1 MEQ/L (24.0-28.0)
[2021-03-03 13:19] LABS: BASO # 0.1 10^3/uL (0.0-0.2); BASO % 0.6 % (0.0-1.0); EOS # 0.4 10^3/uL (0.0-0.5); EOS % 2.3 % (0.0-3.0); HEMATOCRIT 41.9 % (42.0-52.0); HEMOGLOBIN 12.9 g/dl (13.5-17.5); LYMPH # 1.4 10^3/uL (1.5-5.0); LYMPH % 9.5 % (24.0-44.0); MEAN CORPUSCULAR HEMOGLOBIN 26.5 pg (27.0-33.0); MEAN CORPUSCULAR HGB CONC 30.8 g/dl (32.0-36.5); MEAN CORPUSCULAR VOLUME 86.2 fl (80.0-96.0); MONO % 6.7 % (2.0-8.0); NEUTROPHILS # 11.9 10^3/uL (1.5-8.5); NEUTROPHILS % 80.2 % (36.0-66.0); PLATELET COUNT, AUTOMATED 390 10^3/uL (150-450); RED BLOOD COUNT 4.86 10^6/uL (4.30-6.10); WHITE BLOOD COUNT 14.9 10^3/uL (4.0-10.0)
[2021-03-03 13:57] LABS: ALBUMIN 3.3 GM/DL (3.2-5.2); ALT/SGPT 23 U/L (12-78); BILIRUBIN,DIRECT 0.1 MG/DL (0.0-0.2); BILIRUBIN,TOTAL 0.4 MG/DL (0.2-1.0); BLOOD UREA NITROGEN 12 MG/DL (7-18); CALCIUM LEVEL 8.3 MG/DL (8.8-10.2); CARBON DIOXIDE LEVEL 33 MEQ/L (21-32); CHLORIDE LEVEL 100 MEQ/L (98-107); CK-MB VALUE MASS 2.2 NG/ML (<3.6); CPK CREATINE PHOSPHOKINASE 74 U/L (39-308); CREATININE FOR GFR 0.94 MG/DL (0.70-1.30); GLOMERULAR FILTRATION RATE > 60.0 (>49); GLUCOSE, FASTING 195 MG/DL (70-100); MB/CK RELATIVE INDEX 2.97 (< OR =4); NT-PRO BNP 25 PG/ML (<125); POTASSIUM SERUM 4.6 MEQ/L (3.5-5.1); SODIUM LEVEL 138 MEQ/L (136-145); THYROXINE (T4) 6.9 UG/DL (4.5-12.0); TROPONIN I < 0.02 NG/ML (< 0.10)
[2021-03-03 14:01] LABS: RSV AMPLIFICATION NEGATIVE (NEGATIVE)
[2021-03-03] MEDS ORDERED: IPRATROPIUM 0.5MG/ALBUTEROL 2.5MG INH SOL UD 3ML (DUONEB) NEB ONE (14:05)
[2021-03-03] MEDS ORDERED: ATOR1TAB19 PO (14:30)
[2021-03-03] MEDS ORDERED: LEVA1.2519 NEB (14:30)
[2021-03-03] MEDS ORDERED: HOME MED LIST COMPLETE! XX SCH (14:35)
[2021-03-03] MEDS ORDERED: GLUCAGON INJ 1MG VIAL SC PRN (15:20)
[2021-03-03] MEDS ORDERED: DEXTROSE 50% 50 ML SYRINGE IV PRN (15:20)
[2021-03-03] MEDS ORDERED: traZODone 50 MG TAB PO PRN (15:20)
[2021-03-03] MEDS ORDERED: MOM 30ML SUSPENSION UDC PO PRN (15:20)
[2021-03-03] MEDS ORDERED: GLUCOSE 4GM CHEW TABLET PO PRN (15:20)
[2021-03-03] MEDS ORDERED: IPRATROPIUM 0.5MG/ALBUTEROL 2.5MG INH SOL UD 3ML (DUONEB) NEB SCH (16:00)
--- NOTE | 2021-03-03 17:23 | ECGEPIP ---
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
[2021-03-03] MEDS: LEVALBUTEROL 1.25 MG/0.5 ML CONCENTRATE NEB INH SCH ×3 (18:01→23:26)
[2021-03-03] MEDS: IPRATROPIUM 0.02% SOLN 0.5MG 2.5ML NEB INH SCH ×3 (18:01→23:25)
--- NOTE | 2021-03-03 18:18 | HPEPDOC ---
General Date of Admission 03/03/21 Date of Service: Mar 03, 2021 Chief Complaint The patient is a 65-year-old male admitted with a reason for visit of Breathing Problems, Extremity Swelling. Source: Patient, RN/MD History of Present Illness 65-year-old male with past medical history of COPD with chronic hypoxic respiratory failure, Obesity, Untreated ASH, diabetes, hypertension, diastolic CHF, moderate pulmonary hypertension, mild to moderate Aortic stenosis, HTN, HLD, anxiety, Peripheral neuropathy, Essential tremors, Severe neuralgic pain around the ears and the face/Trigeminal neuralgia, Loss of hearing on the right, Kidney stones, PTSD, Depression presented to the ED with Increasing SOB and leg swelling for 3 days. Patient was most recently here from 02/16/2021 to 02/19/2021 for COPD exacerbation and CHF exacerbation. Patient reports that he was doing well initially and then over the past 3 days his breathing has worsened so that he has been using his Xopenex nebulizers every 2-3 hours at least 4 times during the night without any relief of symptoms then he started noticing his legs are getting swollen and last night they were very bloated and all night he could not sleep so came to the emergency room this morning. He reports that he was wheezing and he could hardly breathe in enough air. He does have some dry cough but no phlegm production. he also complained of nausea off and on for the past 3 days and says that because of his breathing he has not been able to eat for a day. Patient states that on a good day he can walk about 10 feet before his oxygen dropped to 70% and he becomes exhausted and severely out of breath. On bad days just standing up from sitting position causes his oxygen to drop to 60s. I asked why he is not on any long-acting inhalers or some long-acting nebulizer solutions. Apparently patient used to be on long-acting inhalers however he could not afford it every month so he was taken of those. He however was never tried on long-acting nebulizer solutions but he tells me that he would not be able to afford the co-pays for any more medications for his respiratory system than what he is taking now. Unfortunately his diseases remain uncontrolled due to inability to afford all the needed medications. Patient is being admitted for COPD exacerbation and CHF exacerbation. Home Medications Scheduled Aspirin (Aspirin EC) 81 Mg Tablet.dr, 81 MG PO QHS, (Reported) Atorvastatin Calcium (Atorvastatin Calcium) 10 Mg Tablet, 10 MG PO QHS, (Reported) Duloxetine Hcl (Duloxetine HCl) 30 Mg Cap, 60 MG PO QAM, (Reported) Duloxetine Hcl (Duloxetine HCl) 30 Mg Capsule.dr, 30 MG PO QHS, (Reported) Furosemide (Furosemide) 40 Mg Tablet, 80 MG PO DAILY, (Reported) Glimepiride (Glimepiride) 2 Mg Tablet, 2 MG PO BID, (Reported) Insulin Detemir (Levemir Flextouch) 100 Unit/1 Ml Insuln.pen, 12 UNIT SC QHS, (Reported) Metoprolol Tartrate (Metoprolol Tartrate) 25 Mg Tablet, 25 MG PO BID, (Reported) Tamsulosin HCl (Flomax) 0.4 Mg Cap, 0.4 MG PO BID, (Reported) Scheduled PRN Epinephrine (Epipen 2-Shashi) 0.3 Mg/0.3 Ml Inj, 0.3 MG INJ ASDIRECTED PRN for ANAPHYLAXIS, (Reported) Ketoconazole (Ketoconazole) 15 Gm Cream..g., 1 APLCT TOP BID PRN for RASH, (Reported) APPLY TO FACE Levalbuterol HCl (Levalbuterol HCl) 1.25 Mg/3 Ml Vial.neb, 1 VIAL NEB Q4H PRN for SOB/WHEEZING, (Reported) Trazodone HCl (Trazodone HCl) 50 Mg Tablet, 50 MG PO QHS PRN for INSOMNIA, (Reported) Allergies Coded Allergies: Penicillins (Verified Allergy, Severe, anaphylaxis, 06/19/20) per Dr. Milner primidone (Verified Allergy, Severe, 01/26/21) hives codeine (Verified Allergy, Intermediate, HIVES, 11/20/20) ibuprofen (Verified Allergy, Intermediate, face swelling, 11/20/20) BRAND ADVIL bee venom protein (honey bee) (Verified Allergy, Unknown, 06/19/20) Past Medical History Medical History Oxygen dependent COPD, Obesity, Untreated ASH, diabetes, hypertension, diastolic CHF, moderate pulmonary hypertension, mild to moderate Aortic stenosis, HTN, HLD, anxiety, Peripheral neuropathy, Essential tremors, Severe neuralgic pain around the ears and the face/Trigeminal neuralgia, Loss of hearing on the right, Kidney stones, PTSD, Depression, environmental allergies Surgical History Umbilical hernia repair times two. Carpal tunnel release. Trigger finger release. Lesion removed from his lip in 1977. Right lithotripsy and basket retrieval of kidney stones in 2017 Bilateral tympanostomies as a child Family History Father: . History of lung cancer and COPD Mother: . History of lung cancer, pancreatic cancer, and COPD Social History * Smoker: former Smoker (Quit 20 years ago) Alcohol: Denies Drugs: denies A-FIB/CHADSVASC A-FIB History Current/History of A-Fib/PAF?: No Review of Systems Constitutional: Reports: Fatigue; Denies: Chills, Fever, Night Sweats Eyes: Denies: Pain, Vision change ENT: Denies: Head Aches, Ear Pain, Dysphagia Skin: Denies: Rash, Lesions, Breakdown Pulmonary: Reports: Dyspnea, Cough Cardiovascular: Reports: Palpitations, Orthopnea, Edema; Denies: Chest Pain Gastrointestinal: Reports: Nausea Genitourinary: Denies: Dysuria, Frequency, Incontinence, Retention Hematologic: Denies: Bruising, Bleeding Excessively Musculoskeletal: Reports: Back Pain, Leg Pain, Foot Pain Psych: Denies: Depression, Memory Issues Physical Examination General Exam: Positive: Alert, Cooperative, No Acute Distress, Other (Able to speak in full sentences, no conversational dyspnea) Eye Exam: Positive: PERRLA, Conjunctiva & lids normal, EOMI; Negative: Sclera icteric ENT Exam: Positive: Atraumatic, Mucous membr. moist/pink, Pharynx Normal Neck Exam: Positive: Supple; Negative: JVD, thyromegaly Chest Exam: Positive: Rhonchi, Wheezing, Diminished, Other (Very poor bilateral air entry bilaterally) Heart Exam: Positive: Tachycardic, Regular Rhythm, Normal S1, Normal S2, Murmurs (Systolic murmur present); Negative: Rubs Abdomen Exam: Positive: Normal bowel sounds, Soft; Negative: Tenderness, Hepatospenomegaly Extremity Exam: Positive: Edema (4+ bipedal edema), Normal pulses; Negative: Clubbing, Cyanosis Skin Exam: Positive: Other skin issue (Chronic bilateral venous stasis changes on both the shins) Neuro Exam: Positive: Normal Speech, Strength at 5/5 X4 ext, Normal Tone Psych Exam: Positive: Memory Intact, Oriented x 3 Vital Signs Vital Signs Date Time Temp Pulse Resp B/P (MAP) Pulse Ox O2 Delivery O2 Flow Rate FiO2 03/03/21 14:49 Nasal Cannula 1.5 03/03/21 09:18 98.2 108 28 138/70 (92) 96 Laboratory Data Labs 24H Laboratory Tests 2 03/03/21 12:12: Immature Granulocyte % (Auto) 0.7, Neutrophils (%) (Auto) 80.2H, Lymphocytes (%) (Auto) 9.5L, Monocytes (%) (Auto) 6.7, Eosinophils (%) (Auto) 2.3, Basophils (%) (Auto) 0.6, Neutrophils # (Auto) 11.9H, Lymphocytes # (Auto) 1.4L, Monocytes # (Auto) 1.0H, Eosinophils # (Auto) 0.4, Basophils # (Auto) 0.1, Nucleated Red Blood Cells % (auto) 0.0, Anion Gap 5L, Glomerular Filtration Rate > 60.0, Calc ium Level 8.3L, Total Bilirubin 0.4, Direct Bilirubin 0.1, Aspartate Amino Transf (AST/SGOT) 13, Alanine Aminotransferase (ALT/SGPT) 23, Alkaline Phosphatase 101, Total Creatine Kinase 74, Creatine Kinase MB 2.2, Creatine Kinase MB Relative Index 2.97, Troponin I < 0.02, NB-Nwd-Q-Type Natriuretic Pe ptide 25, Total Protein 7.0, Albumin 3.3, Albumin/Globulin Ratio 0.9, Thyroid Stimulating Hormone (TSH) 1.610, Thyroxine (T4) 6.9 03/03/21 12:41: Blood Gas Bicarbonate Standard 28.9, Venous Blood pH 7.358, Venous Blood Partial Pressure CO2 60.4H, Venous Blood Partial Pressure O2 34.9, Venous Blood Total Carbon Dioxide 35.1H, Venous Blood HCO3 33.2H, Venous Blood Oxygen Saturation 61.4, Venous Blood Base Excess 5.9H, Coronavirus (COVID-19)(PCR) NEGATIVE, Influenza Type A (RT-PCR) NEGATIVE, Influenza Type B (RT-PCR) NEGATIVE, Respiratory Syncytial Virus (PCR) NEGATIVE CBC/BMP Laboratory Tests 03/03/21 12:12 Microbiology Microbiology 03/03/21 Blood Culture, Received Pending 03/03/21 Blood Culture, Received Pending Assessment/Plan 65-year-old male history of oxygen dependent COPD, Obesity, Untreated ASH, insulin dependent diabetes, hypertension, diastolic CHF, moderate pulmonary hype rtension, mild to moderate Aortic stenosis HTN, HLD, anxiety, Peripheral neuropathy who presented to the ED with 3-day history of worsening shortness of breath and leg swelling. patient was recently admitted from 02/16- 02/19 for COPD exacerbation and CHF exacerbation. He is again being admitted for CHF exacerbation , COPD exacerbation COPD exacerbation Patient just finished his steroid taper from the last discharge yesterday. continue Nebs with ipratropium Xopenex budesonide and formoterol. He just finished a course of antibiotics within the past 2 weeks so will not give any more antibiotics today. will give prednisone 10 mg daily Diastolic CHF exacerbation Had 2 echos this year . Echo in jul shows EF of 50% with grade 1 diastolic dysfunction, moderate , mod pul htn possible right heart failure. Echo in January shows normal EF, grade 1 diastolic dysfunction, Mild . We will give Lasix 80 mg IV every 8 hours. May benefit from torsemide on discharge in place of Lasix as it absorbs better in the presence of a generalized edema. Chronic respiratory failure with hypoxia and hypercarbia continue oxygen supplementation DM Will likely become uncontrolled due to steroids will increase long acting insulin, lispro as per sliding scale. Fingersticks before meals and at bedtime Morbid obesity complicating care. Essential tremors No meds Hypertension metoprolol Hyperlipidemia statin Anxiety/depression/insomnia trazodone Chronic peripheral neuropathy/ chronic back pain duloxetine, oxycodone BPH flomax Obstructive sleep apnea untreated. DOesnot use the CPAP. Plan / VTE VTE Prophylaxis Ordered?: Yes OBEY MILNER MD Mar 03, 2021 15:27
[2021-03-03 18:45] VITALS: BP 132/90
[2021-03-03] MEDS: HumaLOG INSULIN (NovoLOG) PER UNIT SC SCH ×2 (18:59→21:00)
[2021-03-03] MEDS: GLIMEPIRIDE 2 MG TAB PO SCH (18:59)
[2021-03-03] MEDS: BUDESONIDE 0.5 MG/2 ML INHALATION SUSPENSION INH SCH (19:49)
[2021-03-03] MEDS: FORMOTEROL FUMARATE 20 MCG/2 ML INHALATION SOLUTION (PERFOROMIST) INH SCH (19:52)
[2021-03-03] MEDS: TAMSULOSIN 0.4 MG CAP PO SCH (20:54)
[2021-03-03] MEDS: DOCUSATE SODIUM 100MG CAPSULE PO SCH (21:00)
[2021-03-03] MEDS: METOPROLOL TART 25 MG TABLET PO SCH (21:02)
[2021-03-03] MEDS: ATORVASTATIN 10 MG TAB PO SCH (21:03)
[2021-03-03] MEDS: LEVEMIR (INSULIN DETEMIR) 1 UNITS/0.01ML SC SCH (21:03)
[2021-03-03] MEDS: DULoxetine 30 MG CAP (CYMBALTA) PO SCH (21:03)
[2021-03-03] MEDS: ASPIRIN 81MG ENTERIC TABLET PO SCH (21:03)
[2021-03-03] MEDS: FUROSEMIDE 100MG/10ML VIAL (J1940) IV SCH (21:05)
[2021-03-03 22:00] VITALS: BP 128/84
[2021-03-03] MEDS: PERCOCET 5MG/325MG TAB PO PRN (23:50)
[2021-03-04] MEDS: IPRATROPIUM 0.02% SOLN 0.5MG 2.5ML NEB INH SCH ×6 (03:37→23:18)
[2021-03-04] MEDS: LEVALBUTEROL 1.25 MG/0.5 ML CONCENTRATE NEB INH SCH ×6 (03:37→23:19)
[2021-03-04] MEDS: FUROSEMIDE 100MG/10ML VIAL (J1940) IV SCH ×2 (05:10→13:11)
[2021-03-04 06:00] VITALS: BP 120/85
[2021-03-04] MEDS: FORMOTEROL FUMARATE 20 MCG/2 ML INHALATION SOLUTION (PERFOROMIST) INH SCH ×2 (06:05→20:00)
[2021-03-04] MEDS: BUDESONIDE 0.5 MG/2 ML INHALATION SUSPENSION INH SCH ×2 (06:14→19:45)
[2021-03-04 06:23] LABS: BASO % 0.2 % (0.0-1.0); HEMATOCRIT 40.6 % (42.0-52.0); HEMOGLOBIN 12.6 g/dl (13.5-17.5); LYMPH # 0.9 10^3/uL (1.5-5.0); LYMPH % 6.4 % (24.0-44.0); MEAN CORPUSCULAR HEMOGLOBIN 26.3 pg (27.0-33.0); MEAN CORPUSCULAR VOLUME 84.6 fl (80.0-96.0); MONO # 0.6 10^3/uL (0.0-0.8); MONO % 4.1 % (2.0-8.0); NEUTROPHILS # 12.3 10^3/uL (1.5-8.5); NEUTROPHILS % 88.6 % (36.0-66.0); PLATELET COUNT, AUTOMATED 422 10^3/uL (150-450); WHITE BLOOD COUNT 13.8 10^3/uL (4.0-10.0)
[2021-03-04 06:36] LABS: BLOOD UREA NITROGEN 18 MG/DL (7-18); CALCIUM LEVEL 8.7 MG/DL (8.8-10.2); CARBON DIOXIDE LEVEL 35 MEQ/L (21-32); CHLORIDE LEVEL 97 MEQ/L (98-107); CREATININE FOR GFR 0.94 MG/DL (0.70-1.30); GLOMERULAR FILTRATION RATE > 60.0 (>49); GLUCOSE, FASTING 261 MG/DL (70-100); SODIUM LEVEL 137 MEQ/L (136-145)
[2021-03-04] MEDS: DOCUSATE SODIUM 100MG CAPSULE PO SCH ×3 (09:00→20:54)
[2021-03-04] MEDS ORDERED: predniSONE 20 MG TAB PO SCH (09:00)
[2021-03-04] MEDS: GLIMEPIRIDE 2 MG TAB PO SCH ×2 (09:23→18:48)
[2021-03-04] MEDS: HumaLOG INSULIN (NovoLOG) PER UNIT SC SCH ×4 (09:23→21:01)
[2021-03-04] MEDS: DULoxetine 30 MG CAP (CYMBALTA) PO SCH ×2 (09:23→20:55)
[2021-03-04] MEDS: TAMSULOSIN 0.4 MG CAP PO SCH ×2 (09:23→20:55)
[2021-03-04] MEDS: METOPROLOL TART 25 MG TABLET PO SCH ×2 (09:25→20:57)
[2021-03-04] MEDS: PERCOCET 5MG/325MG TAB PO PRN ×2 (13:08→21:03)
[2021-03-04 14:00] VITALS: BP 119/78
--- NOTE | 2021-03-04 17:03 | IPNPDOC ---
Date Seen The patient was seen on 03/04/21. Progress Note SUBJECTIVE: Seen, examined at bedside. Doing well acute events overnight. Assessment was improved. On 1.5 L nasal cannula at 92%. States he visited between 1 and 2 L at home. Fevers, chills, no chest pain or palpitations. Reports no cough. OBJECTIVE PHYSICAL EXAMINATION: VITAL SIGNS: please see below General: NAD, comfortable HEENT: PERRLA, EOMI, sclerae clear Neck: supple, normal ROM, no JVD Respiratory: lungs CTAB, no wheeze, no rales, no crackles CVS: RRR, normal S1, S2, no murmurs Abdo: soft, no masses, no hepatosplenomegaly, BS+, no rebound tenderness Extremities: no edema, pulses 2+ Can: Left leg is red, swollen, erythematous. MSK: no joint deformities, normal ROM Neuro: no focal neuro deficits, moving all 4 extremities, CN2-12 intact. Strength 5/5 in all 4 extremities. No nystagmus. Psych: calm, cooperative, AAO x 3 LABORATORY DATA, IMAGING STUDIES, MICROBIOLOGY: Please see below. DVT prophylaxis ordered? TEDs. SCDs. Lovenox. 5-year-old male history of oxygen dependent COPD, Obesity, Untreated ASH, insulin dependent diabetes, hypertension, diastolic CHF, moderate pulmonary hypertension, mild to moderate Aortic stenosis HTN, HLD, anxiety, Peripheral neuropathy who presented to the ED with 3-day history of worsening shortness of breath and leg swelling. patient was recently admitted from 02/16- 02/19 for COPD exacerbation and CHF exacerbation. He is again being admitted for CHF exacerbation , COPD exacerbation COPD exacerbation Patient just finished his steroid taper from the last discharge yesterday. continue Nebs with ipratropium Xopenex budesonide and formoterol. He just finished a course of antibiotics within the past 2 weeks so will not give any more antibiotics today. will give prednisone 40 mg daily Diastolic CHF exacerbation Had 2 echos this year . Echo in jul shows EF of 50% with grade 1 diastolic dysfunction, moderate , mod pul htn possible right heart failure. Echo in January shows normal EF, grade 1 diastolic dysfunction, Mild . Reduce lasix from 80mg q8h to 40 mg IV q8h. Cellulitis of LLE - ordered venous duplex - start doxycycline. Chronic respiratory failure with hypoxia and hypercarbia continue oxygen supplementation DM Will likely become uncontrolled due to steroids will increase long acting insulin, lispro as per sliding scale. Fingersticks before meals and at bedtime Morbid obesity complicating care. Essential tremors No meds Hypertension metoprolol Hyperlipidemia statin Anxiety/depression/insomnia trazodone Chronic peripheral neuropathy/ chronic back pain duloxetine, oxycodone BPH flomax Obstructive sleep apnea untreated. DOesnot use the CPAP. VS, I&O, 24H, Fishbone Vital Signs/I&O Vital Signs Date Time Temp Pulse Resp B/P (MAP) Pulse Ox O2 Delivery O2 Flow Rate FiO2 03/04/21 14:00 98.0 108 20 119/78 (92) 92 Nasal Cannula 1.5 I&O- Last 24 Hours up to 6 AM 03/04/21 06:00 Intake Total 660 ml Output Total 3200 ml Balance -2540 ml Laboratory Data 24H LABS Laboratory Tests 2 03/03/21 18:54: Bedside Glucose (Misc Panel) 244H 03/04/21 05:59: Immature Granulocyte % (Auto) 0.7, Neutrophils (%) (Auto) 88.6H, Lymphocytes (%) (Auto) 6.4L, Monocytes (%) (Auto) 4.1, Eosinophils (%) (Auto) 0.0, Basophils (%) (Auto) 0.2, Neutrophils # (Auto) 12.3H, Lymphocytes # (Auto) 0.9L, Monocytes # (Auto) 0.6, Eosinophils # (Auto) 0.0, Basophils # (Auto) 0.0, Nucleated Red Blood Cells % (auto) 0.0, Anion Gap 5L, Glomerular Filtration Rate > 60.0, Calcium Level 8.7L 03/04/21 11:27: Bedside Glucose (Misc Panel) 277H 03/04/21 16:34: Bedside Glucose (Misc Panel) 300H CBC/BMP Laboratory Tests 03/04/21 05:59 Microbiology Microbiology 03/03/21 Blood Culture - Preliminary, Resulted No growth after 24 hours . All specim... 03/03/21 Blood Culture - Preliminary, Resulted No growth after 24 hours . All specim... VANESSA PEARL MD Mar 04, 2021 17:03
[2021-03-04] MEDS: DOXYCYCLINE HYCLATE 100MG TABLET PO SCH ×2 (18:47→20:55)
[2021-03-04] MEDS: ENOXAPARIN 40MG/0.4ML SYRINGE (J1650 PER 10MG) SC SCH (20:55)
[2021-03-04] MEDS: ASPIRIN 81MG ENTERIC TABLET PO SCH (20:56)
[2021-03-04] MEDS: ATORVASTATIN 10 MG TAB PO SCH (20:56)
[2021-03-04] MEDS: LEVEMIR (INSULIN DETEMIR) 1 UNITS/0.01ML SC SCH (21:00)
[2021-03-04] MEDS: FUROSEMIDE 40MG/4ML VIAL (J1940) IV SCH ×2 (21:02→21:56)
--- NOTE | 2021-03-04 21:49 | REPVR ---
PROCEDURE INFORMATION: Exam: US Duplex Lower Extremity Veins, Bilateral Exam date and time: 03/04/2021 9:38 PM Age: 65 years old Clinical indication: Edema, localized; Lower extremity, bilateral; Additional info: R/O dvt TECHNIQUE: Imaging protocol: Real-time duplex ultrasound of the extremities with 2-D zamora scale, color Doppler flow and spectral waveform analysis with image documentation. Complete exam focused on the bilateral lower extremity veins. COMPARISON: No relevant prior studies available. FINDINGS: Right deep veins: Unremarkable. The common femoral, femoral, proximal profunda femoral and popliteal veins are patent without thrombus. Normal Doppler waveforms. Normal compressibility and/or augmentation response. Right superficial veins: Saphenofemoral junction is patent without thrombus. Left deep veins: Unremarkable. The common femoral, femoral, proximal profunda femoral and popliteal veins are patent without thrombus. Normal Doppler waveforms. Normal compressibility and/or augmentation response. Left superficial veins: Saphenofemoral junction is patent without thrombus. Soft tissues: Unremarkable. IMPRESSION: No evidence of deep vein thrombosis. Electronically signed by: Efren Delgado On 03/04/2021 21:49:19 PM
[2021-03-04 22:00] VITALS: BP 132/83
[2021-03-05] MEDS: LEVALBUTEROL 1.25 MG/0.5 ML CONCENTRATE NEB INH SCH ×6 (04:00→23:15)
[2021-03-05] MEDS: IPRATROPIUM 0.02% SOLN 0.5MG 2.5ML NEB INH SCH ×6 (04:00→23:14)
[2021-03-05] MEDS: FUROSEMIDE 40MG/4ML VIAL (J1940) IV SCH ×3 (05:11→21:01)
[2021-03-05] MEDS: PERCOCET 5MG/325MG TAB PO PRN ×3 (05:38→20:57)
[2021-03-05 06:00] VITALS: BP 141/96
[2021-03-05 06:58] LABS: BASO # 0.1 10^3/uL (0.0-0.2); BASO % 0.5 % (0.0-1.0); EOS # 0.2 10^3/uL (0.0-0.5); EOS % 1.2 % (0.0-3.0); HEMATOCRIT 38.9 % (42.0-52.0); HEMOGLOBIN 12.1 g/dl (13.5-17.5); MEAN CORPUSCULAR HEMOGLOBIN 26.8 pg (27.0-33.0); MEAN CORPUSCULAR HGB CONC 31.1 g/dl (32.0-36.5); MEAN CORPUSCULAR VOLUME 86.3 fl (80.0-96.0); MONO # 1.3 10^3/uL (0.0-0.8); MONO % 8.7 % (2.0-8.0); NEUTROPHILS # 11.6 10^3/uL (1.5-8.5); NEUTROPHILS % 75.9 % (36.0-66.0); PLATELET COUNT, AUTOMATED 434 10^3/uL (150-450); RED BLOOD COUNT 4.51 10^6/uL (4.30-6.10); WHITE BLOOD COUNT 15.3 10^3/uL (4.0-10.0)
[2021-03-05 07:24] LABS: BLOOD UREA NITROGEN 18 MG/DL (7-18); CALCIUM LEVEL 8.6 MG/DL (8.8-10.2); CARBON DIOXIDE LEVEL 38 MEQ/L (21-32); CHLORIDE LEVEL 102 MEQ/L (98-107); CREATININE FOR GFR 0.86 MG/DL (0.70-1.30); GLOMERULAR FILTRATION RATE > 60.0 (>49); GLUCOSE, FASTING 72 MG/DL (70-100); POTASSIUM SERUM 3.3 MEQ/L (3.5-5.1); SODIUM LEVEL 143 MEQ/L (136-145)
[2021-03-05] MEDS: HumaLOG INSULIN (NovoLOG) PER UNIT SC SCH ×4 (07:30→20:56)
[2021-03-05] MEDS: BUDESONIDE 0.5 MG/2 ML INHALATION SUSPENSION INH SCH ×2 (07:42→19:51)
[2021-03-05] MEDS ORDERED: POTASSIUM CHLORIDE 10 MEQ SR TABLET PO ONE (07:55)
[2021-03-05] MEDS ORDERED: methylPREDNISolone 125MG 2ML VIAL IV ONE (08:50)
[2021-03-05] MEDS ORDERED: IPRATROPIUM 0.5MG/ALBUTEROL 2.5MG INH SOL UD 3ML (DUONEB) NEB ONE (08:50)
[2021-03-05] MEDS: DOCUSATE SODIUM 100MG CAPSULE PO SCH ×2 (09:00→20:53)
[2021-03-05] MEDS ORDERED: ISOVUE-370 76% 100ML VIAL As Ordered ONE (09:03)
[2021-03-05] MEDS: DOXYCYCLINE HYCLATE 100MG TABLET PO SCH (10:16)
[2021-03-05] MEDS: DULoxetine 30 MG CAP (CYMBALTA) PO SCH ×2 (10:16→20:54)
[2021-03-05] MEDS: TAMSULOSIN 0.4 MG CAP PO SCH ×2 (10:26→20:53)
[2021-03-05] MEDS: METOPROLOL TART 25 MG TABLET PO SCH ×2 (10:27→20:55)
[2021-03-05] MEDS: GLIMEPIRIDE 2 MG TAB PO SCH ×2 (10:33→17:18)
--- NOTE | 2021-03-05 10:45 | REP ---
INDICATION: r/o PE. COMPARISON: 02/18/2021 as well as other prior exams. TECHNIQUE: CT angiogram chest performed following the intravenous administration of 100 cc of Isovue 370. Sagittal and coronal reconstruction images are performed. FINDINGS: Lungs: There stable emphysematous and fibrotic changes. Scattered tiny calcified granulomas are seen in the right lung. Mediastinum: No adenopathy. Pulmonary arteries: No evidence of pulmonary embolism. Rebecca: No adenopathy. Axilla: No adenopathy. Pleura: No effusion. Heart: Not enlarged. Thoracic aorta: No aneurysm or dissection. Upper abdominal structures: There is again noted a posterior right diaphragmatic hernia containing fat. Visualized osseous structures: There are degenerative changes of the spine. IMPRESSION: No CT evidence of pulmonary embolism. No infiltrate seen. <Electronically signed by Dwain Burkett > 03/05/21 [id number]
[2021-03-05] MEDS: FORMOTEROL FUMARATE 20 MCG/2 ML INHALATION SOLUTION (PERFOROMIST) INH SCH ×2 (11:20→19:53)
--- NOTE | 2021-03-05 11:42 | IPNPDOC ---
Date Seen The patient was seen on 03/05/21. Progress Note SUBJECTIVE: Seen, examined at bedside. Doing well acute events overnight. Assessment was improved. On 1.5 L nasal cannula at 92%. States he visited between 1 and 2 L at home. Fevers, chills, no chest pain or palpitations. Reports no cough. OBJECTIVE PHYSICAL EXAMINATION: VITAL SIGNS: please see below General: NAD, comfortable HEENT: PERRLA, EOMI, sclerae clear Neck: supple, normal ROM, no JVD Respiratory: diffuse mild wheeze through lung crowe, mild crackles, CVS: RRR, normal S1, S2, no murmurs Abdo: soft, no masses, no hepatosplenomegaly, BS+, no rebound tenderness Extremities: 2+ edema persists. Can: Left leg is red, swollen, erythematous. MSK: no joint deformities, normal ROM Neuro: no focal neuro deficits, moving all 4 extremities, CN2-12 intact. Strength 5/5 in all 4 extremities. No nystagmus. Psych: calm, cooperative, AAO x 3 LABORATORY DATA, IMAGING STUDIES, MICROBIOLOGY: Please see below. DVT prophylaxis ordered? TEDs. SCDs. Lovenox. 5-year-old male history of oxygen dependent COPD, Obesity, Untreated ASH, insulin dependent diabetes, hypertension, diastolic CHF, moderate pulmonary hypertension, mild to moderate Aortic stenosis HTN, HLD, anxiety, Peripheral neuropathy who presented to the ED with 3-day history of worsening shortness of breath and leg swelling. patient was recently admitted from 02/16- 02/19 for COPD exacerbation and CHF exacerbation. He is again being admitted for CHF exacerbation , COPD exacerbation COPD exacerbation Patient just finished his steroid taper from the last discharge yesterday. continue Nebs with ipratropium Xopenex budesonide and formoterol. increase steroids to solumedrol 80 mg q8h IV Doxycycline for cellulitis/co treatment of COPD Diastolic CHF exacerbation Had 2 echos this year . Echo in jul shows EF of 50% with grade 1 diastolic dysfunction, moderate , mod pul htn possible right heart failure. Echo in January shows normal EF, grade 1 diastolic dysfunction, Mild . Reduce lasix from 80mg q8h to 40 mg IV q8h. Cellulitis of LLE - ordered venous duplex - negative - start doxycycline. Chronic respiratory failure with hypoxia and hypercarbia continue oxygen supplementation DM Will likely become uncontrolled due to steroids will increase long acting insulin, lispro as per sliding scale. Fingersticks before meals and at bedtime Morbid obesity complicating care. Essential tremors No meds Hypertension metoprolol Hyperlipidemia statin Anxiety/depression/insomnia trazodone Chronic peripheral neuropathy/ chronic back pain duloxetine, oxycodone BPH flomax Obstructive sleep apnea untreated. DOesnot use the CPAP. VS, I&O, 24H, Fishbone Vital Signs/I&O Vital Signs Date Time Temp Pulse Resp B/P (MAP) Pulse Ox O2 Delivery O2 Flow Rate FiO2 03/05/21 10:27 117 117/74 03/05/21 09:00 1.5 03/05/21 06:08 20 03/05/21 06:00 98.0 95 Room Air I&O- Last 24 Hours up to 6 AM 03/05/21 06:00 Intake Total 1980 ml Output Total 1550 ml Balance 430 ml Laboratory Data 24H LABS Laboratory Tests 2 03/04/21 16:34: Bedside Glucose (Misc Panel) 300H 03/04/21 20:54: Bedside Glucose (Misc Panel) 351H 03/05/21 06:22: Immature Granulocyte % (Auto) 0.7, Neutrophils (%) (Auto) 75.9H, Lymphocytes (%) (Auto) 13.0L, Monocytes (%) (Auto) 8.7H, Eosinophils (%) (Auto) 1.2, Basophils (%) (Auto) 0.5, Neutrophils # (Auto) 11.6H, Lymphocytes # (Auto) 2.0, Monocytes # (Auto) 1.3H, Eosinophils # (Auto) 0.2, Basophils # (Auto) 0.1, Nucleated Red Blood Cells % (auto) 0.0, Anion Gap 3L, Glomerular Filtration Rate > 60.0, Calcium Level 8.6L CBC/BMP Laboratory Tests 03/05/21 06:22 Microbiology Microbiology 03/03/21 Blood Culture - Preliminary, Resulted No growth after 24 hours . All specim... 03/03/21 Blood Culture - Preliminary, Resulted No growth after 24 hours . All specim... VANESSA PEARL MD Mar 05, 2021 11:42
[2021-03-05 14:00] VITALS: BP 124/75
[2021-03-05] MEDS: methylPREDNISolone 125MG 2ML VIAL IV SCH (17:17)
[2021-03-05] MEDS: ATORVASTATIN 10 MG TAB PO SCH (20:54)
[2021-03-05] MEDS: ASPIRIN 81MG ENTERIC TABLET PO SCH (20:54)
[2021-03-05] MEDS: ENOXAPARIN 40MG/0.4ML SYRINGE (J1650 PER 10MG) SC SCH (20:56)
[2021-03-05] MEDS: LEVEMIR (INSULIN DETEMIR) 1 UNITS/0.01ML SC SCH (20:56)
[2021-03-05 22:00] VITALS: BP 116/77
[2021-03-06] MEDS: methylPREDNISolone 125MG 2ML VIAL IV SCH (01:18)
[2021-03-06] MEDS: LEVALBUTEROL 1.25 MG/0.5 ML CONCENTRATE NEB INH SCH ×3 (04:00→11:01)
[2021-03-06] MEDS: IPRATROPIUM 0.02% SOLN 0.5MG 2.5ML NEB INH SCH ×3 (04:00→11:01)
[2021-03-06 06:00] VITALS: BP 118/70
[2021-03-06] MEDS: FUROSEMIDE 40MG/4ML VIAL (J1940) IV SCH ×2 (06:08→14:00)
[2021-03-06 06:41] LABS: BASO % 0.1 % (0.0-1.0); HEMATOCRIT 37.6 % (42.0-52.0); HEMOGLOBIN 11.6 g/dl (13.5-17.5); LYMPH # 0.7 10^3/uL (1.5-5.0); LYMPH % 5.1 % (24.0-44.0); MEAN CORPUSCULAR HEMOGLOBIN 26.5 pg (27.0-33.0); MEAN CORPUSCULAR HGB CONC 30.9 g/dl (32.0-36.5); MONO # 0.2 10^3/uL (0.0-0.8); MONO % 1.4 % (2.0-8.0); NEUTROPHILS # 12.8 10^3/uL (1.5-8.5); NEUTROPHILS % 92.9 % (36.0-66.0); PLATELET COUNT, AUTOMATED 405 10^3/uL (150-450); RED BLOOD COUNT 4.37 10^6/uL (4.30-6.10); WHITE BLOOD COUNT 13.8 10^3/uL (4.0-10.0)
[2021-03-06 07:13] LABS: BLOOD UREA NITROGEN 20 MG/DL (7-18); CALCIUM LEVEL 8.2 MG/DL (8.8-10.2); CARBON DIOXIDE LEVEL 35 MEQ/L (21-32); CHLORIDE LEVEL 99 MEQ/L (98-107); CREATININE FOR GFR 0.97 MG/DL (0.70-1.30); GLOMERULAR FILTRATION RATE > 60.0 (>49); GLUCOSE, FASTING 306 MG/DL (70-100); POTASSIUM SERUM 4.4 MEQ/L (3.5-5.1); SODIUM LEVEL 138 MEQ/L (136-145)
[2021-03-06] MEDS: FORMOTEROL FUMARATE 20 MCG/2 ML INHALATION SOLUTION (PERFOROMIST) INH SCH (07:34)
[2021-03-06] MEDS: BUDESONIDE 0.5 MG/2 ML INHALATION SUSPENSION INH SCH (07:34)
[2021-03-06] MEDS: DOCUSATE SODIUM 100MG CAPSULE PO SCH (08:54)
[2021-03-06] MEDS: HumaLOG INSULIN (NovoLOG) PER UNIT SC SCH ×2 (08:54→11:38)
[2021-03-06] MEDS: GLIMEPIRIDE 2 MG TAB PO SCH (08:54)
[2021-03-06] MEDS: DOXYCYCLINE HYCLATE 100MG TABLET PO SCH (08:54)
[2021-03-06] MEDS: TAMSULOSIN 0.4 MG CAP PO SCH (08:54)
[2021-03-06] MEDS: DULoxetine 30 MG CAP (CYMBALTA) PO SCH (08:54)
[2021-03-06 08:55] VITALS: BP 107/53
[2021-03-06] MEDS: METOPROLOL TART 25 MG TABLET PO SCH (08:55)
--- NOTE | 2021-03-06 10:19 | DS.PDOC ---
Discharge Summary General Date of Admission Mar 03, 2021 at 15:20 Date of Discharge 03/06/21 Discharge Summary PROCEDURES PERFORMED DURING STAY: [None]. ADMITTING DIAGNOSES: COPD exacerbation Diastolic CHF exacerbation Chronic respiratory failure with hypoxia and hypercarbia DM2 Morbid obesity Essential tremor HTN HLD Anxiety Depression Insomnia Chronic peripheral neuropathy Chronic back pain BPH ASH, not on CPAP DISCHARGE DIAGNOSES: COPD exacerbation Diastolic CHF exacerbation LLE cellulitis Chronic respiratory failure with hypoxia and hypercarbia DM2 Morbid obesity Essential tremor HTN HLD Anxiety Depression Insomnia Chronic peripheral neuropathy Chronic back pain BPH ASH, not on CPAP COMPLICATIONS/CHIEF COMPLAINT: Chf Exacerbation,Copd With Acute Exacerbation. HISTORY OF PRESENT ILLNESS: "65-year-old male with past medical history of COPD with chronic hypoxic respiratory failure, Obesity, Untreated ASH, diabetes, hypertension, diastolic CHF, moderate pulmonary hypertension, mild to moderate Aortic stenosis, HTN, HLD, anxiety, Peripheral neuropathy, Essential tremors, Severe neuralgic pain around the ears and the face/Trigeminal neuralgia, Loss of hearing on the right, Kidney stones, PTSD, Depression presented to the ED with Increasing SOB and leg swelling for 3 days. Patient was most recently here from 02/16/2021 to 02/19/2021 for COPD exacerbation and CHF exacerbation. Patient reports that he was doing well initially and then over the past 3 days his breathing has worsened so that he has been using his Xopenex nebulizers every 2- 3 hours at least 4 times during the night without any relief of symptoms then he started noticing his legs are getting swollen and last night they were very bloated and all night he could not sleep so came to the emergency room this morning. He reports that he was wheezing and he could hardly breathe in enough air. He does have some dry cough but no phlegm production. he also complained of nausea off and on for the past 3 days and says that because of his breathing he has not been able to eat for a day. Patient states that on a good day he can walk about 10 feet before his oxygen dropped to 70% and he becomes exhausted and severely out of breath. On bad days just standing up from sitting position causes his oxygen to drop to 60s. I asked why he is not on any long-acting inhalers or some long-acting nebulizer solutions. Apparently patient used to be on long-acting inhalers however he could not afford it every month so he was taken of those. He however was never tried on long-acting nebulizer solutions but he tells me that he would not be able to afford the co-pays for any more medications for his respiratory system than what he is taking now. Unfortunately his diseases remain uncontrolled due to inability to afford all the needed medications. Patient is being admitted for COPD exacerbation and CHF exacerbation." HOSPITAL COURSE: COPD exacerbation Patient just finished his steroid taper from the last discharge yesterday. continue Nebs with ipratropium Xopenex budesonide and formoterol. increase steroids to solumedrol 80 mg q8h IV DC on prednisone taper. Doxycycline for cellulitis/co treatment of COPD Diastolic CHF exacerbation Had 2 echos this year . Echo in jul shows EF of 50% with grade 1 diastolic dys function, moderate , mod pul htn possible right heart failure. Echo in January shows normal EF, grade 1 diastolic dysfunction, Mild . Reduce lasix from 80mg q8h to 40 mg IV q8h. DC on PO lasix 80 mg daily. Cellulitis of LLE ordered venous duplex - negative for DVT started PO doxycycline - to complete 7 day course Chronic respiratory failure with hypoxia and hypercarbia continue oxygen supplementation DM Will likely become uncontrolled due to steroids will increase long acting insulin, lispro as per sliding scale. Fingersticks before meals and at bedtime Morbid obesity complicating care. Essential tremors No meds Hypertension metoprolol Hyperlipidemia statin Anxiety/depression/insomnia trazodone Chronic peripheral neuropathy/ chronic back pain duloxetine, oxycodone BPH flomax Obstructive sleep apnea untreated. DOesnot use the CPAP. DISCHARGE MEDICATIONS: Please see below. ALLERGIES: Please see below. PHYSICAL EXAMINATION ON DISCHARGE: VITAL SIGNS: please see below General: NAD, comfortable HEENT: PERRLA, EOMI, sclerae clear Neck: supple, normal ROM, no JVD Respiratory: diffuse mild wheeze through lung crowe, mild crackles, CVS: RRR, normal S1, S2, no murmurs Abdo: soft, no masses, no hepatosplenomegaly, BS+, no rebound tenderness Extremities: 2+ edema persists. Can: Left leg is red, swollen, erythematous. MSK: no joint deformities, normal ROM Neuro: no focal neuro deficits, moving all 4 extremities, CN2-12 intact. Strength 5/5 in all 4 extremities. No nystagmus. Psych: calm, cooperative, AAO x 3 LABORATORY DATA: Please see below. IMAGING: PROGNOSIS: good ACTIVITY: [As tolerated]. DIET: consistent carbohydrate DISCHARGE PLAN: DC home on prednisone taper, inhalers, and PO doxycycline. To f/u with PCP and felt hooker. DISPOSITION: home. DISCHARGE INSTRUCTIONS: Please follow up with PCP 3-5 days Please follow up with pulmonology Dr. Chou. Please take medications as prescribed. Your insulin has been adjusted. Take 15 units of levemir in the morning, 10 units of levemir in the evening. Please adhere to sliding scale insulin, as you may expect to have higher blood sugars while on steroids. DISCHARGE CONDITION: [Stable]. TIME SPENT ON DISCHARGE: 35 minutes Vital Signs/I&Os Vital Signs Date Time Temp Pulse Resp B/P (MAP) Pulse Ox O2 Delivery O2 Flow Rate FiO2 03/06/21 09:04 1.5 03/06/21 08:55 96 107/53 03/06/21 06:00 97.3 19 96 Nasal Cannula I&O- Last 24 Hours up to 6 AM 03/06/21 05:59 Intake Total 1980 ml Output Total 2780 ml Balance -800 ml Laboratory Data Labs 24H Laboratory Tests 2 03/05/21 11:40: Bedside Glucose (Misc Panel) 136H 03/05/21 17:08: Bedside Glucose (Misc Panel) 250H 03/05/21 19:48: Bedside Glucose (Misc Panel) 428H 03/06/21 06:01: Immature Granulocyte % (Auto) 0.5, Neutrophils (%) (Auto) 92.9H, Lymphocytes (%) (Auto) 5.1L, Monocytes (%) (Auto) 1.4L, Eosinophils (%) (Auto) 0.0, Basophils (%) (Auto) 0.1, Neutrophils # (Auto) 12.8H, Lymphocytes # (Auto) 0.7L, Monocytes # (Auto) 0.2, Eosinophils # (Auto) 0.0, Basophils # (Auto) 0.0, Nucleated Red Blood Cells % (auto) 0.0, Anion Gap 4L, Glomerular Filtration Rate > 60.0, Calcium Level 8.2L CBC/BMP Laboratory Tests 03/06/21 06:01 FSBS Laboratory Tests Test 03/05/21 11:40 03/05/21 17:08 03/05/21 19:48 Range/Units Bedside Glucose (Misc Panel) 136 250 428 80-115 MG/DL Microbiology Microbiology 03/03/21 Blood Culture - Preliminary, Resulted No Growth after 48 hours. All Specime... 03/03/21 Blood Culture - Preliminary, Resulted No Growth after 48 hours. All Specime... Discharge Medications Scheduled Aspirin (Aspirin EC) 81 Mg Tablet.dr, 81 MG PO QHS, (Reported) Atorvastatin Calcium (Atorvastatin Calcium) 10 Mg Tablet, 10 MG PO QHS, (Reporte d) Blood Sugar Diagnostic (Advanced Glucose Test Strips) 1 Each Strip, 100 STRIP XX ASDIRECTED Budesonide/Formoterol (Symbicort 80-4.5 Mcg Inhaler) 6.9 Gm Hfa.aer.ad, 2 PUFF INH BID Doxycycline Hyclate (Doxycycline Hyclate) 100 Mg Tablet, 100 MG PO BID Duloxetine Hcl (Duloxetine HCl) 30 Mg Cap, 60 MG PO QAM, (Reported) Duloxetine Hcl (Duloxetine HCl) 30 Mg Capsule.dr, 30 MG PO QHS, (Reported) Furosemide (Furosemide) 40 Mg Tablet, 80 MG PO DAILY Glimepiride (Glimepiride) 2 Mg Tablet, 2 MG PO BID, (Reported) Insulin Detemir (Levemir Flextouch) 100 Unit/1 Ml Insuln.pen, 15 UNIT SC Q12H PLEASE TAKE 15 UNITS IN THE MORNING AND 10 UNITS OF LEVEMIR IN THE EVENING. Insulin Human Lispro (Humalog) 100 Unit/1 Ml Vial, 1 UNITS SC AC Metoprolol Tartrate (Metoprolol Tartrate) 25 Mg Tablet, 25 MG PO BID, (Reported) Prednisone (Prednisone) 10 Mg Tablet, 10 MG PO TAPER Take 4 tabs daily x 3 days, then 3 tabs daily x 3 days, then 2 tabs daily x 3 days, then 1 tab daily x 3 days and stop Tamsulosin HCl (Flomax) 0.4 Mg Cap, 0.4 MG PO BID, (Reported) Scheduled PRN Albuterol Sulfate (Ventolin Hfa) 18 Gm Hfa.aer.ad, 2 PUFF INH Q4-6HP PRN for wheezing Epinephrine (Epipen 2-Shashi) 0.3 Mg/0.3 Ml Inj, 0.3 MG INJ ASDIRECTED PRN for ANAPHYLAXIS, (Reported) Ketoconazole (Ketoconazole) 15 Gm Cream..g., 1 APLCT TOP BID PRN for RASH, (Reported) APPLY TO FACE Levalbuterol HCl (Levalbuterol HCl) 1.25 Mg/3 Ml Vial.neb, 1 VIAL NEB Q4H PRN for SOB/WHEEZING Trazodone HCl (Trazodone HCl) 50 Mg Tablet, 50 MG PO QHS PRN for INSOMNIA, (Reported) Allergies Coded Allergies: Penicillins (Verified Allergy, Severe, anaphylaxis, 06/19/20) per Dr. García primidone (Verified Allergy, Severe, 01/26/21) hives codeine (Verified Allergy, Intermediate, HIVES, 11/20/20) ibuprofen (Verified Allergy, Intermediate, face swelling, 11/20/20) BRAND ADVIL bee venom protein (honey bee) (Verified Allergy, Unknown, 06/19/20) VANESSA PEARL MD Mar 06, 2021 10:18
[2021-03-06] MEDS ORDERED: DOXY100T PO (10:27)
[2021-03-06] MEDS ORDERED: LEVE1INJ5 SC (10:27)
[2021-03-06] MEDS ORDERED: FURO40TA2 PO (10:27)
[2021-03-06] MEDS ORDERED: PRED10TA2 PO (10:27)
[2021-03-06] MEDS ORDERED: LEVA1.2519 NEB (10:27)
[2021-03-06] MEDS ORDERED: VENTAER INH (10:30)
[2021-03-06] MEDS ORDERED: SYMB80INH INH (10:30)
[2021-03-06] MEDS ORDERED: GLUC1TES2 XX (10:31)
[2021-03-06] MEDS ORDERED: PEN1MIS22 SC (10:31)
[2021-03-06] MEDS ORDERED: LANC30MI XX (10:31)
[2021-03-06] MEDS ORDERED: BLOOKIT21 XX (10:31)
[2021-03-06] MEDS ORDERED: ALCOPAD25 TOP (10:31)
[2021-03-06] MEDS ORDERED: INSUHUMDS SC ×2 (10:34→10:40)
[2021-03-06] MEDS ORDERED: INSU1MIS20 SC (10:34)
== END 2021-03-06 14:25 | disposition home or self-care (01) ==
LOC: M ED 09:17 → M ED INP 15:20 → ENRESERV 16:10 → M MSPAV 18:20
PROVIDERS: ADMIT Internal Medicine Nephrology; ATTEND Family Medicine
DX: J44.1 Chronic obstructive pulmonary disease with (acute) exacerbation (principal); I50.30 Unspecified diastolic (congestive) heart failure; L03.116 Cellulitis of left lower limb; J96.12 Chronic respiratory failure with hypercapnia; J96.11 Chronic respiratory failure with hypoxia; E11.40 Type 2 diabetes mellitus with diabetic neuropathy, unspecified; E66.01 Morbid (severe) obesity due to excess calories; Z68.36 Body mass index [BMI] 36.0-36.9, adult; G25.0 Essential tremor; I11.0 Hypertensive heart disease with heart failure; E78.5 Hyperlipidemia, unspecified; F41.9 Anxiety disorder, unspecified; F32.9 Major depressive disorder, single episode, unspecified; G47.00 Insomnia, unspecified; M54.9 Dorsalgia, unspecified; N40.0 Benign prostatic hyperplasia without lower urinary tract symptoms; G47.33 Obstructive sleep apnea (adult) (pediatric); I27.20 Pulmonary hypertension, unspecified; I35.2 Nonrheumatic aortic (valve) stenosis with insufficiency; G50.0 Trigeminal neuralgia; F43.10 Post-traumatic stress disorder, unspecified; Z87.891 Personal history of nicotine dependence; Z79.899 Other long term (current) drug therapy; Z79.82 Long term (current) use of aspirin; Z79.2 Long term (current) use of antibiotics; Z79.51 Long term (current) use of inhaled steroids; Z79.52 Long term (current) use of systemic steroids; Z79.4 Long term (current) use of insulin; Z91.120 Patient's intentional underdosing of medication regimen due to financial hardship; Z88.0 Allergy status to penicillin; Z88.8 Allergy status to other drugs, medicaments and biological substances; Z88.5 Allergy status to narcotic agent; Z91.030 Bee allergy status
CPT/HCPCS: 36415; 71045; 71275; 80048; 80076; 82550; 82553; 82803; 83880; 84436; 84443; 84484; 85025; 87040; 87631; 93005; 93041; 93970; 94640; 94664; 96372; 96374; 96375; 96376; 97161; 97530; 99285; G0378; J1650; J1940; J2930; J7512; J7606; Q9967

== ENCOUNTER 2021-03-24 13:28 | Inpatient (IN) | payer MEDICARE ==
[~2021-03-24] VITALS: Ht 177.8 cm; Wt 121.6 kg
[~2021-03-24 13:28] MED LIST changes: +DOXY100T PO; +INSU1MIS20 SC; +INSUHUMDS SC; +LEVA1.2519 NEB; +PEN1MIS22 SC; +SYMB80INH INH
[2021-03-24] MEDS ORDERED: IPRATROPIUM 0.5MG/ALBUTEROL 2.5MG INH SOL UD 3ML (DUONEB) NEB ONE (14:45)
[2021-03-24] MEDS ORDERED: MORPHINE 4 MG/ML 1ML VIAL/SYRINGE (J2270) IV ONE (14:45)
[2021-03-24 15:50] LABS: BASO # 0.1 10^3/uL (0.0-0.2); BASO % 0.6 % (0.0-1.0); EOS # 0.3 10^3/uL (0.0-0.5); EOS % 2.1 % (0.0-3.0); HEMATOCRIT 38.6 % (42.0-52.0); HEMOGLOBIN 12.1 g/dl (13.5-17.5); LYMPH # 1.4 10^3/uL (1.5-5.0); LYMPH % 10.5 % (24.0-44.0); MEAN CORPUSCULAR HEMOGLOBIN 26.9 pg (27.0-33.0); MEAN CORPUSCULAR HGB CONC 31.3 g/dl (32.0-36.5); MEAN CORPUSCULAR VOLUME 85.8 fl (80.0-96.0); MONO # 1.1 10^3/uL (0.0-0.8); MONO % 8.4 % (2.0-8.0); NEUTROPHILS # 10.4 10^3/uL (1.5-8.5); NEUTROPHILS % 77.8 % (36.0-66.0); PLATELET COUNT, AUTOMATED 294 10^3/uL (150-450); WHITE BLOOD COUNT 13.4 10^3/uL (4.0-10.0)
[2021-03-24 16:19] LABS: BLOOD UREA NITROGEN 13 MG/DL (7-18); C REACTIVE PROTEIN QUANTITATIV 5.46 MG/DL (0.00-0.30); CALCIUM LEVEL 8.5 MG/DL (8.8-10.2); CARBON DIOXIDE LEVEL 34 MEQ/L (21-32); CHLORIDE LEVEL 102 MEQ/L (98-107); CK-MB VALUE MASS 1.4 NG/ML (<3.6); CPK CREATINE PHOSPHOKINASE 53 U/L (39-308); CREATININE FOR GFR 0.84 MG/DL (0.70-1.30); GLOMERULAR FILTRATION RATE > 60.0 (>49); GLUCOSE, FASTING 193 MG/DL (70-100); MB/CK RELATIVE INDEX 2.64 (< OR =4); NT-PRO BNP 42 PG/ML (<125); POTASSIUM SERUM 3.9 MEQ/L (3.5-5.1); SODIUM LEVEL 139 MEQ/L (136-145); TROPONIN I < 0.02 NG/ML (< 0.10)
--- NOTE | 2021-03-24 16:58 | ECGEPIP ---
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
[2021-03-24] MEDS ORDERED: methylPREDNISolone 125MG 2ML VIAL IV ONE (17:10)
[2021-03-24] MEDS ORDERED: AZITHROMYCIN 250MG TABLET PO ONE (17:15)
--- NOTE | 2021-03-24 17:33 | REP ---
INDICATION: COPD exac.?pneumonia. COMPARISON: Portable chest, 03/03/2021. TECHNIQUE: Upright AP chest image was obtained. FINDINGS: There is an oval density projected over the lower lung zone on the right consistent with the known Bochdalek's type diaphragmatic hernia. The lungs are clear. There are no pleural effusions. The heart size is normal. There is calcific vascular disease of the thoracic aorta. IMPRESSION: 1. No evidence of acute cardiopulmonary pathology. 2. Other findings as noted. No significant change. <Electronically signed by Atif Campo > 03/24/21 [id number]
[2021-03-24] MEDS ORDERED: HUMA100I5 SC (17:43)
[2021-03-24] MEDS ORDERED: SYMB80INH INH (17:43)
[2021-03-24] MEDS ORDERED: VENTAER INH (17:43)
[2021-03-24] MEDS ORDERED: FURO40TA2 PO ×2 (17:43→18:16)
[2021-03-24] MEDS ORDERED: LEVA1.2519 NEB (17:43)
[2021-03-24] MEDS ORDERED: LEVE1INJ5 SC ×2 (17:43)
--- NOTE | 2021-03-24 18:15 | HPEPDOC ---
[facility] Medical History & Physical Date of Admission Mar 24, 2021 Date of Service: Mar 24, 2021 History and Physical CHIEF COMPLAINT: shortness of breath HISTORY OF PRESENT ILLNESS: 65-year-old male with extensive medical history and multiple hospital visits5 hospital admissions since November, returns for worsening shortness of breath. Patient states that for the last several days he has had worsening shortness of breath along with worsening lower extremity edema. He admits to significant orthopnea, stating that he always sleeps sitting in a chair, but this has been going on since July. He states typically he uses 2 L of supplemental oxygen at baseline, at rest or with exertion. Over the past several months his oxygen requirements have been increasing. He states that at rest he still is okay with 2 L however with exertion he is now up to anywhere from 6 to 8 L of supplemental oxygen. He states he has chronic chest pain related to his neuropathy with no changes in the character of his chest pain. He denies any cough, recent travel, sick contacts, abdominal pain, nausea, vomiting, diarrhea, headaches, or depressed mood. PAST MEDICAL HISTORY: Oxygen dependent COPD Obesity #ASH not on CPAP #DM #HFpEF #hypertension #pulmonary HTN #mild to moderate Aortic stenosis #HLD #anxiety/depression #Peripheral neuropathy #Essential tremors #Severe neuralgic pain around the ears and the face/Trigeminal neuralgia #Loss of hearing on the right #PTSD #environmental allergies PAST SURGICAL HISTORY: Umbilical hernia repair times two. Carpal tunnel release. Trigger finger release. Lesion removed from his lip in 1977. Right lithotripsy and basket retrieval of kidney stones in 2016 Bilateral tympanostomies as a child SOCIAL HISTORY: Former smoker, quit 20 years ago. Prior to that was 2-3 ppd/30 years FAMILY HISTORY: Father: . History of lung cancer and COPD Mother: . History of lung cancer, pancreatic cancer, and COPD ALLERGIES: Please see below. REVIEW OF SYSTEMS: Negative except as per HPI. HOME MEDICATIONS: Please see below. PHYSICAL EXAMINATION: Vital Signs: reviewed and within normal limits General: NAD, lying comfortably in bed HEENT: NC/AT, EOMI, macular papular rash on forehead, around nose and mouth Neck: supple, no masses Chest: diminished breath sounds, difficult to auscultate due to body habitus - poor inspiratory effort Heart: +S1S2, tachy Abd: soft, NT, ND, +BS, obese Ext: b/l le edema, b/l cellulitic areas lower extremities Skin: macular papular rash on forehead, around nose and mouth MSK: full ROM at large joints Neuro: no gross focal deficits Psych: AAOx3 LABORATORY DATA: See below. MICROBIOLOGY: Please see below. A/P: 65-year-old male history of oxygen dependent COPD, Obesity, Untreated ASH, insulin dependent diabetes, hypertension, diastolic CHF, moderate pulmonary hypertension, mild to moderate Aortic stenosis HTN, HLD, anxiety, Peripheral neuropathy who presented to the ED with 3-day history of worsening shortness of breath and leg swelling. patient was recently admitted from 02/16- 02/19 for COPD exacerbation and CHF exacerbation. He is again being admitted for CHF exacerbation , COPD exacerbation #COPD exacerbation - iv steroids, doxycyline (PCN allergy) - IS, acapella, supplemental O2 - respiratory treatments #Diastolic CHF exacerbation - Had 2 echos this year . Echo in jul shows EF of 50% with grade 1 diastolic dysfunction, moderate , mod pul htn possible right heart failure. Echo in January shows normal EF, grade 1 diastolic dysfunction, Mild . - We will give Lasix 80 mg IV every 12 hours. May benefit from torsemide on dis charge in place of Lasix - I/O's, daily weights #acute /Chronic respiratory failure - as above #cellulitis - doxy as above #DM - sliding scale insulin - carb consistent diet #Morbid obesity complicating care. #Essential tremors - No meds #Hypertension - metoprolol as per home meds #Hyperlipidemia - statin #Anxiety/depression/insomnia - trazodone #Chronic peripheral neuropathy/ chronic back pain - duloxetine, oxycodone #BPH - flomax #Obstructive sleep apnea - does not use CPAP. #DVT prophylaxis Vital Signs Vital Signs Date Time Temp Pulse Resp B/P (MAP) Pulse Ox O2 Delivery O2 Flow Rate FiO2 03/24/21 16:58 113 21 132/80 (97) 98 Nasal Cannula 2.0 03/24/21 13:29 98.4 Laboratory Data Labs 24H Laboratory Tests 2 03/24/21 15:08: Immature Granulocyte % (Auto) 0.6, Neutrophils (%) (Auto) 77.8H, Lymphocytes (%) (Auto) 10.5L, Monocytes (%) (Auto) 8.4H, Eosinophils (%) (Auto) 2.1, Basophils (%) (Auto) 0.6, Neutrophils # (Auto) 10.4H, Lymphocytes # (Auto) 1.4L, Monocytes # (Auto) 1.1H, Eosinophils # (Auto) 0.3, Basophils # (Auto) 0.1, Nucleated Red Blood Cells % (auto) 0.0, Anion Gap 3L, Glomerular Filtration Rate > 60.0, Calcium Level 8.5L, Total Creatine Kinase 53, Creatine Kinase MB 1.4, Creatine Kinase MB Relative Index 2.64, Troponin I < 0.02, C-Reactive Protein, Quantitative 5.46H, TT-Ugd-A-Type Natriuretic Peptide 42 03/24/21 17:09: CBC/BMP Laboratory Tests 03/24/21 15:08 Microbiology Microbiology 03/24/21 Blood Culture, Received Pending 03/24/21 Respiratory Virus Panel (PCR) ([facility]) - Final, Complete Home Medications Scheduled Aspirin (Aspirin EC) 81 Mg Tablet.dr, 81 MG PO QHS Atorvastatin Calcium (Atorvastatin Calcium) 10 Mg Tablet, 10 MG PO QHS Budesonide/Formoterol (Symbicort 80-4.5 Mcg Inhaler) 6.9 Gm Hfa.aer.ad, 2 PUFF INH BID Duloxetine Hcl (Duloxetine HCl) 30 Mg Cap, 30 MG PO TID Furosemide (Furosemide) 40 Mg Tablet, 80 MG PO DAILY Furosemide (Furosemide) 40 Mg Tablet, 40 MG PO DAILY TAKES MED IN THE AFTERNOON Glimepiride (Glimepiride) 2 Mg Tablet, 2 MG PO BID Insulin Detemir (Levemir Flextouch) 100 Unit/1 Ml Insuln.pen, 15 UNIT SC DAILY Insulin Detemir (Levemir Flextouch) 100 Unit/1 Ml Insuln.pen, 10 UNIT SC QHS Insulin Lispro (Humalog Kwikpen U-100) 100 Unit/1 Ml Insuln.pen, 1 DOSE SC AC PER SLIDING SCALE Metoprolol Tartrate (Metoprolol Tartrate) 25 Mg Tablet, 25 MG PO BID Tamsulosin HCl (Flomax) 0.4 Mg Cap, 0.4 MG PO BID Scheduled PRN Albuterol Sulfate (Ventolin Hfa) 18 Gm Hfa.aer.ad, 2 PUFFS INH QID PRN for SOB/WHEEZING Epinephrine (Epipen 2-Shashi) 0.3 Mg/0.3 Ml Inj, 0.3 MG INJ ASDIRECTED PRN for ANAPHYLAXIS Ketoconazole (Ketoconazole) 15 Gm Cream..g., 1 APLCT TOP BID PRN for RASH APPLY TO FACE Levalbuterol HCl (Levalbuterol HCl) 1.25 Mg/3 Ml Vial.neb, 1 VIAL NEB Q4H PRN for SOB/WHEEZING Trazodone HCl (Trazodone HCl) 50 Mg Tablet, 50 MG PO QHS PRN for INSOMNIA Allergies Coded Allergies: Penicillins (Verified Allergy, Severe, anaphylaxis, 06/19/20) per Dr. García primidone (Verified Allergy, Severe, 01/26/21) hives codeine (Verified Allergy, Intermediate, HIVES, 11/20/20) ibuprofen (Verified Allergy, Intermediate, face swelling, 11/20/20) BRAND ADVIL bee venom protein (honey bee) (Verified Allergy, Unknown, 06/19/20) A-FIB/CHADSVASC A-FIB History Current/History of A-Fib/PAF?: No MELINDA FRASER MD Mar 24, 2021 18:15
[2021-03-24] MEDS ORDERED: DEXTROSE 50% 50 ML SYRINGE IV PRN (18:20)
[2021-03-24] MEDS ORDERED: traZODone 50 MG TAB PO PRN (18:20)
[2021-03-24] MEDS ORDERED: GLUCOSE 4GM CHEW TABLET PO PRN (18:20)
[2021-03-24] MEDS ORDERED: GLUCAGON INJ 1MG VIAL SC PRN (18:20)
[2021-03-24] MEDS ORDERED: KETOCONAZOLE 2% CREAM TOP PRN (18:20)
[2021-03-24] MEDS ORDERED: HOME MED LIST COMPLETE! XX SCH (18:20)
[2021-03-24] MEDS ORDERED: FUROSEMIDE 100MG/10ML VIAL (J1940) IV ONE (18:20)
[2021-03-24] MEDS ORDERED: EPINEPHrine INJ 1 MG/ML 1ML AMP SC PRN (18:20)
[2021-03-24] MEDS: SYMBICORT 80/4.5MCG INHALER 6GM INH SCH (19:58)
[2021-03-24 20:05] VITALS: BP 131/80
[2021-03-24] MEDS: ASPIRIN 81MG ENTERIC TABLET PO SCH (20:42)
[2021-03-24] MEDS: METOPROLOL TART 25 MG TABLET PO SCH (20:43)
[2021-03-24] MEDS: DULoxetine 30 MG CAP (CYMBALTA) PO SCH (20:43)
[2021-03-24] MEDS: TAMSULOSIN 0.4 MG CAP PO SCH (20:43)
[2021-03-24] MEDS: ATORVASTATIN 10 MG TAB PO SCH (20:43)
[2021-03-24] MEDS: DOXYCYCLINE HYCLATE 100 MG in D5W MINI-BAG PLUS 100 ML IV SCH (20:44)
[2021-03-24] MEDS: HumaLOG INSULIN (NovoLOG) PER UNIT SC SCH (20:53)
[2021-03-24] MEDS ORDERED: ACETAMINOPHEN TAB 650MG DOSE (2X325MG) PO PRN (22:45)
[2021-03-24] MEDS ORDERED: ACETAMINOPHEN 325 MG TAB PO ONE (22:45)
[2021-03-25] VITALS: BP 124/76
[2021-03-25 04:00] VITALS: BP 122/77
[2021-03-25 05:42] LABS: HEMATOCRIT 36.8 % (42.0-52.0); HEMOGLOBIN 11.5 g/dl (13.5-17.5); MEAN CORPUSCULAR HEMOGLOBIN 26.6 pg (27.0-33.0); MEAN CORPUSCULAR HGB CONC 31.3 g/dl (32.0-36.5); PLATELET COUNT, AUTOMATED 288 10^3/uL (150-450); RED BLOOD COUNT 4.33 10^6/uL (4.30-6.10); WHITE BLOOD COUNT 12.6 10^3/uL (4.0-10.0)
[2021-03-25 06:23] LABS: ALBUMIN 2.6 GM/DL (3.2-5.2); ALT/SGPT 19 U/L (12-78); BILIRUBIN,TOTAL 0.5 MG/DL (0.2-1.0); BLOOD UREA NITROGEN 17 MG/DL (7-18); CALCIUM LEVEL 8.6 MG/DL (8.8-10.2); CARBON DIOXIDE LEVEL 34 MEQ/L (21-32); CHLORIDE LEVEL 100 MEQ/L (98-107); CREATININE FOR GFR 0.85 MG/DL (0.70-1.30); GLOMERULAR FILTRATION RATE > 60.0 (>49); GLUCOSE, FASTING 284 MG/DL (70-100); POTASSIUM SERUM 4.7 MEQ/L (3.5-5.1); SODIUM LEVEL 137 MEQ/L (136-145); THYROID STIMULATING HORMONE 0.307 uIU/ML (0.358-3.740); TOTAL PROTEIN 6.5 GM/DL (6.4-8.2)
[2021-03-25 07:37] VITALS: BP 126/62
[2021-03-25] MEDS: SYMBICORT 80/4.5MCG INHALER 6GM INH SCH ×2 (07:57→19:42)
[2021-03-25] MEDS: DOXYCYCLINE HYCLATE 100 MG in D5W MINI-BAG PLUS 100 ML IV SCH ×2 (08:21→20:22)
[2021-03-25] MEDS: HumaLOG INSULIN (NovoLOG) PER UNIT SC SCH ×4 (08:23→21:58)
[2021-03-25] MEDS: HEPARIN SOD (PORCINE) 5000UNITS/ML 1ML VIAL/SYRINGE SC SCH ×2 (08:24→20:22)
[2021-03-25] MEDS: TAMSULOSIN 0.4 MG CAP PO SCH ×2 (08:24→20:23)
[2021-03-25] MEDS: DULoxetine 30 MG CAP (CYMBALTA) PO SCH ×3 (08:24→20:23)
[2021-03-25] MEDS: METOPROLOL TART 25 MG TABLET PO SCH ×2 (08:24→20:23)
[2021-03-25] MEDS: TORSEMIDE 20 MG TAB PO SCH ×2 (08:28→16:52)
[2021-03-25] MEDS: PERCOCET 5MG/325MG TAB PO PRN ×3 (08:29→23:44)
[2021-03-25] MEDS ORDERED: FLUBLOK(EGG FREE)(QUAD)INFLUENZA VACC 0.5ML SYRINGE 18YRS & OLDER IM ONE (09:00)
--- NOTE | 2021-03-25 11:46 | IPNPDOC ---
Text Note Date of Service The patient was seen on 03/25/21. NOTE Subjective: Patient is a 65-year-old male with a PMHx of COPD, Chronic hypoxia (on 2L O2), HTN, Diastolic CHF, IDDM2, DLP, Obesity, who presented to the emergency room with a three-day history of reported sureness of breath and leg swelling. Patient was admitted to the hospital service for further evaluation and treatment. Patient was seen and examined at the bedside. Patient does not report any significant shortness of breath or cough. Has not expressed any chest pain or palpitations. Denies any nausea, vomiting, abdominal pain or diarrhea. Patient reports chronic pain and reports that his legs are still exquisitely tender. Objective: Vitals (See below) General: Lying in bed, no acute distress, comfortable, AAOx3 HEENT: NC, AT CVS: +S1S2 Lungs: Fair air entry b/l, no wheezing / rales / rhonchi Abdomen: Soft, ND, NT Extremities: 2+ edema bilaterally, Bilateral erythema Imaging: CXR 03/24: 1. No evidence of acute cardiopulmonary pathology. 2. Other findings as noted. No significant change. Assessment and plan: Diastolic CHF exacerbation - Physical reveals evidence of fluid overload - Patient is saturating well on his baseline level of oxygen - Prior echoes with evidence of grade 1 diastolic dysfunction, moderate aortic stenosis, moderate pulmonary hypertension - Strict ins/outs, daily weight, fluid restriction - Will resume torsemide at twice a day dosing COPD - No evidence of exacerbation - s/p Corticosteroids - c/w inhaled therapy as orderedc Chronic respiratory failure - Patient uses 2 L of nasal cannula oxygen at baseline Bilateral LE Cellulitis - c/w Doxycycline (Day #2) IDDM2 - c/w ISS - Will resume Levemir at adjusted dose Morbid obesity - BMI of 38.7 - Complicating medical care Essential tremors Hypertension - BP well controlled - c/w Metoprolol DLP - c/w Atorvastatin and ASA Anxiety/depression/insomnia - c/w Trazodone Chronic peripheral neuropathy/ chronic back pain - c/w Duloxetine - Will start Oxycodone BPH - c/w Tamsulosin ASH - Non-compliant with CPAP DVT prophylaxis - c/w Heparin Disposition: - Pending clinical improvement VS,Gildardo, I+O VS, Gildardo, I+O Laboratory Tests 03/24/21 15:08 03/25/21 05:05 Vital Signs Date Time Temp Pulse Resp B/P (MAP) Pulse Ox O2 Delivery O2 Flow Rate FiO2 03/25/21 08:29 18 03/25/21 08:24 92 126/62 03/25/21 08:00 2.0 03/25/21 07:37 97.2 98 Nasal Cannula I&O- Last 24 Hours up to 6 AM 03/25/21 05:59 Intake Total 0 ml Output Total 950 ml Balance -950 ml LISA VIRAMONTES MD Mar 25, 2021 11:46
[2021-03-25 12:08] VITALS: BP 113/57
[2021-03-25] MEDS: LEVEMIR (INSULIN DETEMIR) 1 UNITS/0.01ML SC SCH ×2 (12:57→20:22)
[2021-03-25] MEDS ORDERED: KETOCONAZOLE 2% CREAM TOP PRN (13:00)
[2021-03-25 16:00] VITALS: BP 138/78
[2021-03-25 20:00] VITALS: BP 142/74
[2021-03-25] MEDS: ATORVASTATIN 10 MG TAB PO SCH (20:23)
[2021-03-25] MEDS: ASPIRIN 81MG ENTERIC TABLET PO SCH (20:23)
[2021-03-26] VITALS: BP 139/79
[2021-03-26 04:00] VITALS: BP 74/79
[2021-03-26 07:04] VITALS: BP 122/63
[2021-03-26 07:47] LABS: BASO # 0.1 10^3/uL (0.0-0.2); BASO % 0.4 % (0.0-1.0); EOS # 0.2 10^3/uL (0.0-0.5); EOS % 1.5 % (0.0-3.0); HEMATOCRIT 36.7 % (42.0-52.0); HEMOGLOBIN 11.2 g/dl (13.5-17.5); LYMPH # 1.7 10^3/uL (1.5-5.0); LYMPH % 13.1 % (24.0-44.0); MEAN CORPUSCULAR HEMOGLOBIN 26.7 pg (27.0-33.0); MEAN CORPUSCULAR HGB CONC 30.5 g/dl (32.0-36.5); MEAN CORPUSCULAR VOLUME 87.4 fl (80.0-96.0); MONO % 7.7 % (2.0-8.0); NEUTROPHILS % 76.6 % (36.0-66.0); PLATELET COUNT, AUTOMATED 299 10^3/uL (150-450)
[2021-03-26] MEDS: SYMBICORT 80/4.5MCG INHALER 6GM INH SCH ×2 (07:50→19:39)
[2021-03-26] MEDS: ALBUTEROL 90 MCG/ACT 8GM HFA INHALER INH PRN (07:50)
[2021-03-26 08:11] LABS: BLOOD UREA NITROGEN 25 MG/DL (7-18); CALCIUM LEVEL 8.2 MG/DL (8.8-10.2); CARBON DIOXIDE LEVEL 38 MEQ/L (21-32); CHLORIDE LEVEL 100 MEQ/L (98-107); CREATININE FOR GFR 1.03 MG/DL (0.70-1.30); GLOMERULAR FILTRATION RATE > 60.0 (>49); GLUCOSE, FASTING 184 MG/DL (70-100); POTASSIUM SERUM 3.8 MEQ/L (3.5-5.1); SODIUM LEVEL 140 MEQ/L (136-145)
[2021-03-26] MEDS: HEPARIN SOD (PORCINE) 5000UNITS/ML 1ML VIAL/SYRINGE SC SCH ×2 (08:26→20:29)
[2021-03-26] MEDS: LEVEMIR (INSULIN DETEMIR) 1 UNITS/0.01ML SC SCH ×2 (08:26→20:29)
[2021-03-26] MEDS: HumaLOG INSULIN (NovoLOG) PER UNIT SC SCH ×4 (08:26→20:44)
[2021-03-26] MEDS: DULoxetine 30 MG CAP (CYMBALTA) PO SCH ×3 (08:26→20:32)
[2021-03-26] MEDS: TORSEMIDE 20 MG TAB PO SCH (08:27)
[2021-03-26] MEDS: TAMSULOSIN 0.4 MG CAP PO SCH ×2 (08:27→20:31)
[2021-03-26] MEDS: METOPROLOL TART 25 MG TABLET PO SCH ×2 (08:27→20:31)
[2021-03-26] MEDS: DOXYCYCLINE HYCLATE 100 MG in D5W MINI-BAG PLUS 100 ML IV SCH (08:28)
--- NOTE | 2021-03-26 09:40 | IPNPDOC ---
Text Note Date of Service The patient was seen on 03/26/21. NOTE Subjective: Patient is a 65-year-old male with a PMHx of COPD, Chronic hypoxia (on 2L O2), HTN, Diastolic CHF, IDDM2, DLP, Obesity, who presented to the emergency room with a three-day history of reported sureness of breath and leg swelling. Patient was admitted to the hospital service for further evaluation and treatment. Patient was seen and examined at the bedside. Patient reports that his breathing is relatively the same. Denies any cough, chest pain or palpitations. Has not expressed any nausea, vomiting, abdominal pain or diarrhea. Patient reports that he hasn't been urinating much, however documentation reveals that he has urinated greater than 3.5 L. Objective: Vitals (See below) General: Patient is laying in bed, appears to be comfortable without any acute distress, is oriented to person, place and time HEENT: Normocephalic and atraumatic CVS: +S1S2 Lungs: Air entry appears to be fair bilaterally without any evidence of wheezing, crackles or rhonchi Abdomen: Remains soft without any distention or tenderness Extremities: LE reveal 2+ pitting edema Skin: Bilateral lower extremity erythema has improved significantly, tenderness has improved, no drainage noted Imaging: CXR 03/24: 1. No evidence of acute cardiopulmonary pathology. 2. Other findings as noted. No significant change. Assessment and plan: Acute diastolic CHF exacerbation - O reveal pitting edema bilaterally - Patient is on his baseline level of oxygen - Prior ECHOs with evidence of grade 1 diastolic dysfunction, moderate aortic stenosis, moderate pulmonary hypertension - Strict ins/outs, daily weight, fluid restriction - c/w torsemide; will change to daily dosing at this time COPD - No evidence of exacerbation - s/p Corticosteroids - c/w inhaled therapy as ordered Chronic respiratory failure - Patient uses 2 L of nasal cannula oxygen at baseline Bilateral LE Cellulitis - c/w Doxycycline (Day #3); will adjust to oral dosing IDDM2 - c/w ISS and Levemir at adjusted dose Morbid obesity - BMI of 38.7 - Complicating medical care Essential tremors Hypertension - BP well controlled - c/w Metoprolol DLP - c/w Atorvastatin and ASA Anxiety/depression/insomnia - c/w Trazodone Chronic peripheral neuropathy/ chronic back pain - c/w Duloxetine and Oxycodone BPH - c/w Tamsulosin ASH - Non-compliant with CPAP DVT prophylaxis - c/w Heparin Disposition: - Pending clinical improvement - Anticipate discharge home tomorrow Gildardo CRUZ, I+O Gildardo CRUZ I+O Laboratory Tests 03/26/21 07:22 Vital Signs Date Time Temp Pulse Resp B/P (MAP) Pulse Ox O2 Delivery O2 Flow Rate FiO2 03/26/21 07:04 97.9 81 18 122/63 (82) 98 Nasal Cannula 2.0 I&O- Last 24 Hours up to 6 AM 03/26/21 06:00 Intake Total 840 ml Output Total 3980 ml Balance -3140 ml LISA VIRAMONTES MD Mar 26, 2021 09:40
[2021-03-26] MEDS: PERCOCET 5MG/325MG TAB PO PRN ×2 (10:17→20:30)
[2021-03-26 14:20] VITALS: BP 135/79
[2021-03-26 20:30] VITALS: BP 133/79
[2021-03-26] MEDS: ASPIRIN 81MG ENTERIC TABLET PO SCH (20:30)
[2021-03-26] MEDS: ATORVASTATIN 10 MG TAB PO SCH (20:31)
[2021-03-26] MEDS: DOXYCYCLINE HYCLATE 100MG TABLET PO SCH (20:31)
[2021-03-27] MEDS: PERCOCET 5MG/325MG TAB PO PRN ×3 (05:29→17:35)
[2021-03-27 06:00] VITALS: BP 132/80
[2021-03-27] MEDS: SYMBICORT 80/4.5MCG INHALER 6GM INH SCH ×2 (07:14→19:48)
[2021-03-27] MEDS: TORSEMIDE 20 MG TAB PO SCH (08:27)
[2021-03-27] MEDS: DULoxetine 30 MG CAP (CYMBALTA) PO SCH ×3 (08:27→21:35)
[2021-03-27] MEDS: TAMSULOSIN 0.4 MG CAP PO SCH ×2 (08:27→21:35)
[2021-03-27] MEDS: METOPROLOL TART 25 MG TABLET PO SCH ×2 (08:27→21:35)
[2021-03-27] MEDS: DOXYCYCLINE HYCLATE 100MG TABLET PO SCH ×2 (08:27→21:32)
[2021-03-27] MEDS: LEVEMIR (INSULIN DETEMIR) 1 UNITS/0.01ML SC SCH ×2 (08:28→21:32)
[2021-03-27] MEDS: HumaLOG INSULIN (NovoLOG) PER UNIT SC SCH ×4 (08:29→21:31)
[2021-03-27] MEDS: HEPARIN SOD (PORCINE) 5000UNITS/ML 1ML VIAL/SYRINGE SC SCH ×2 (08:30→21:30)
[2021-03-27 09:53] LABS: BASO # 0.1 10^3/uL (0.0-0.2); BASO % 0.9 % (0.0-1.0); EOS # 0.4 10^3/uL (0.0-0.5); EOS % 3.9 % (0.0-3.0); HEMATOCRIT 40.6 % (42.0-52.0); HEMOGLOBIN 12.4 g/dl (13.5-17.5); LYMPH # 1.3 10^3/uL (1.5-5.0); LYMPH % 12.9 % (24.0-44.0); MEAN CORPUSCULAR HEMOGLOBIN 26.7 pg (27.0-33.0); MEAN CORPUSCULAR HGB CONC 30.5 g/dl (32.0-36.5); MEAN CORPUSCULAR VOLUME 87.5 fl (80.0-96.0); MONO # 0.9 10^3/uL (0.0-0.8); MONO % 8.7 % (2.0-8.0); NEUTROPHILS # 7.2 10^3/uL (1.5-8.5); PLATELET COUNT, AUTOMATED 314 10^3/uL (150-450); RED BLOOD COUNT 4.64 10^6/uL (4.30-6.10); WHITE BLOOD COUNT 9.8 10^3/uL (4.0-10.0)
[2021-03-27 10:17] LABS: BLOOD UREA NITROGEN 21 MG/DL (7-18); CALCIUM LEVEL 9.2 MG/DL (8.8-10.2); CARBON DIOXIDE LEVEL 41 MEQ/L (21-32); CHLORIDE LEVEL 96 MEQ/L (98-107); GLOMERULAR FILTRATION RATE > 60.0 (>49); GLUCOSE, FASTING 234 MG/DL (70-100); POTASSIUM SERUM 3.1 MEQ/L (3.5-5.1); SODIUM LEVEL 139 MEQ/L (136-145)
--- NOTE | 2021-03-27 11:42 | IPNPDOC ---
Text Note Date of Service The patient was seen on 03/27/21. NOTE Subjective: Patient is a 65-year-old male with a PMHx of COPD, Chronic hypoxia (on 2L O2), HTN, Diastolic CHF, IDDM2, DLP, Obesity, who presented to the emergency room with a three-day history of reported sureness of breath and leg swelling. Patient was admitted to the hospital service for further evaluation and treatment. Patient was seen and examined at the bedside. Patient reports that this morning he feels weak and fatigued. Currently is on his baseline level of oxygen. Denies any significant cough, but does report that he gets winded very easily. Denies any chest pain or palpitations. Has not spent any nausea, vomiting, abdominal pain or diarrhea. Patient reports that his legs are still swollen, however, the redness has improved significantly. Objective: Vitals (See below) General: Patient is laying in bed, appears to be comfortable, is awake and alert, oriented 3 HEENT: AT, NC CVS: +S1S2 Lungs: There appears to be fair air entry bilaterally without any evidence of crackles, wheezing or rhonchi Abdomen: Soft, obese, nondistended, nontender Extremities: Again his lower extremities still reveal 1-2+ pitting edema Skin: Area of erythema of his bilateral legs has had significant improvement. No drainage noted Imaging: ECHO 01/2021 Sinus tachycardia without intraventricular conduction disturbance. Technically very difficult study in light of the patient's body habitus and ability of the echo stenographer. All measurements are somewhat suspect. M-Mode and 2-dimensional echocardiography was performed with pulse, continuous wave, color flow and tissue Doppler study. Normal-appearing left ventricular size, wall thickness and wall motion. Normal left atrial size with grade 1 left ventricular (LV) diastolic dysfunction but current estimated mean left atrial pressure within normal limits. Right heart chamber sizes appear to be upper limits of normal to slightly increased with normal wall motion. Estimated pulmonary arterial pressure was moderately increased. Normal inferior vena cava (IVC) size and collapse against an elevated central venous pressure as a cause of the observed edema. Normal aortic dimensions. Mild calcific aortic stenosis without apparent insufficiency. Mild degenerative changes of the mitral valvular apparatus without clear valvu lar dysfunction. Normal-appearing tricuspid valve with very mild insufficiency. Unable to visualize any intracardiac mass or pericardial effusion. Comparing today's study with that of August 16, 2020 there did not appear to be a significant change. CXR 03/24: 1. No evidence of acute cardiopulmonary pathology. 2. Other findings as noted. No significant change. Assessment and plan: Acute diastolic CHF exacerbation - Lower extremities still reveal significant pitting edema, however, has had some improvement - Patient is on 2 L of nasal cannula oxygen which is his baseline that he is in the home - ECHO noted above - Strict ins/outs, daily weight, fluid restriction - has remained negative fluid balanced - c/w torsemide at adjusted dose COPD - No evidence of exacerbation - s/p Corticosteroids - c/w inhaled therapy as ordered Chronic respiratory failure - Patient uses 2 L of nasal cannula oxygen at baseline Bilateral LE Cellulitis - c/w Doxycycline (Day #3) IDDM2 - c/w ISS and Levemir at adjusted dose Morbid obesity - BMI of 38.7 - Complicating medical care Essential tremors Hypertension - BP well controlled - c/w Metoprolol DLP - c/w Atorvastatin and ASA Anxiety/depression/insomnia - c/w Trazodone Chronic peripheral neuropathy/ chronic back pain - c/w Duloxetine and Oxycodone BPH - c/w Tamsulosin ASH - Non-compliant with CPAP DVT prophylaxis - c/w Heparin Disposition: - Patient is medically cleared - Awaiting PT / OT clearance - Will transition to ALC status now VSGildardo, I+O VSGildardo, I+O Laboratory Tests 03/27/21 09:26 Vital Signs Date Time Temp Pulse Resp B/P (MAP) Pulse Ox O2 Delivery O2 Flow Rate FiO2 03/27/21 08:27 103 132/80 03/27/21 06:00 97.6 19 95 Nasal Cannula 2.0 I&O- Last 24 Hours up to 6 AM 03/27/21 06:00 Intake Total 1780 ml Output Total 2000 ml Balance -220 ml LISA VIRAMONTES MD Mar 27, 2021 11:42
[2021-03-27] MEDS: POTASSIUM CHLORIDE 10 MEQ SR TABLET PO SCH (12:15)
[2021-03-27] MEDS: ALBUTEROL 90 MCG/ACT 8GM HFA INHALER INH PRN (17:08)
[2021-03-27 21:35] VITALS: BP 115/70
[2021-03-27] MEDS: ASPIRIN 81MG ENTERIC TABLET PO SCH (21:35)
[2021-03-27] MEDS: ATORVASTATIN 10 MG TAB PO SCH (21:35)
[2021-03-28] MEDS: ALBUTEROL 90 MCG/ACT 8GM HFA INHALER INH PRN ×2 (05:28→07:37)
[2021-03-28 05:42] VITALS: BP 117/74
[2021-03-28] MEDS: SYMBICORT 80/4.5MCG INHALER 6GM INH SCH (07:37)
[2021-03-28 07:52] LABS: BLOOD UREA NITROGEN 19 MG/DL (7-18); CALCIUM LEVEL 8.6 MG/DL (8.8-10.2); CARBON DIOXIDE LEVEL 40 MEQ/L (21-32); CHLORIDE LEVEL 99 MEQ/L (98-107); CREATININE FOR GFR 0.84 MG/DL (0.70-1.30); GLOMERULAR FILTRATION RATE > 60.0 (>49); GLUCOSE, FASTING 200 MG/DL (70-100); POTASSIUM SERUM 3.6 MEQ/L (3.5-5.1); SODIUM LEVEL 140 MEQ/L (136-145)
[2021-03-28] MEDS: HEPARIN SOD (PORCINE) 5000UNITS/ML 1ML VIAL/SYRINGE SC SCH (08:36)
[2021-03-28] MEDS: DULoxetine 30 MG CAP (CYMBALTA) PO SCH (08:36)
[2021-03-28] MEDS: LEVEMIR (INSULIN DETEMIR) 1 UNITS/0.01ML SC SCH (08:36)
[2021-03-28] MEDS: HumaLOG INSULIN (NovoLOG) PER UNIT SC SCH ×2 (08:36→12:00)
[2021-03-28] MEDS: DOXYCYCLINE HYCLATE 100MG TABLET PO SCH (08:36)
[2021-03-28] MEDS: TORSEMIDE 20 MG TAB PO SCH ×2 (08:37→08:39)
[2021-03-28] MEDS: POTASSIUM CHLORIDE 10 MEQ SR TABLET PO SCH (08:37)
[2021-03-28] MEDS: TAMSULOSIN 0.4 MG CAP PO SCH (08:37)
[2021-03-28] MEDS: METOPROLOL TART 25 MG TABLET PO SCH (08:37)
[2021-03-28] MEDS ORDERED: TORS20TA2 PO (11:25)
[2021-03-28] MEDS ORDERED: DOXY100T PO (11:25)
--- NOTE | 2021-03-28 14:19 | DS.PDOC ---
Discharge Summary General Date of Admission Mar 24, 2021 at 15:15 Date of Discharge 03/28/2021 Discharge Summary PROCEDURES PERFORMED DURING STAY: [None]. ADMITTING DIAGNOSES / DISCHARGE DIAGNOSES: Acute diastolic CHF exacerbation COPD Chronic respiratory failure Bilateral LE Cellulitis IDDM2 Morbid obesity Essential tremors HTN DLP Anxiety/depression/insomnia Chronic peripheral neuropathy/ chronic back pain BPH ASH DVT prophylaxis COMPLICATIONS/CHIEF COMPLAINT: SOB HISTORY OF PRESENT ILLNESS: Patient is a 65-year-old male with a PMHx of COPD, Chronic hypoxia (on 2L O2), HTN, Diastolic CHF, IDDM2, DLP, Obesity, who presented to the emergency room with a three-day history of reported sureness of breath and leg swelling. Patient was admitted to the hospital service for further evaluation and treatment. Patient was seen and examined at the bedside. Patient reported that he was able to ambulate. Physical therapy reports that his breathing is doing better, essentially at baseline. Denies any significant cough, chest pain. Patient has not experience any nausea, vomiting, abdominal pain, diarrhea. Patient was that his legs are doing better. HOSPITAL COURSE: Acute diastolic CHF exacerbation - LE with edema still present but improved from admission - On baseline level of 2 L nasal cannula oxygen - ECHO noted above - Strict ins/outs, daily weight, fluid restriction - has remained negative fluid balanced - c/w Torsemide; 40 AM and 20 PM on discharge - Will have outpatient follow-up with primary care provider, and cardiology within the next 7 days COPD - No evidence of exacerbation - s/p Corticosteroids - c/w inhaled therapy as ordered Chronic respiratory failure - Patient uses 2 L of nasal cannula oxygen at baseline - Currently on baseline level of oxygen Bilateral LE Cellulitis - c/w Doxycycline (Day #4) - will complete antibiotic course as an outpatient IDDM2 - c/w ISS and Levemir at adjusted dose Morbid obesity - BMI of 38.7 - Complicating medical care Essential tremors Hypertension - BP well controlled - c/w Metoprolol DLP - c/w Atorvastatin and ASA Anxiety/depression/insomnia - c/w Trazodone Chronic peripheral neuropathy/ chronic back pain - c/w Duloxetine and Oxycodone BPH - c/w Tamsulosin ASH - Non-compliant with CPAP DVT prophylaxis - c/w Heparin DISCHARGE MEDICATIONS: Please see below. ALLERGIES: Please see below. PHYSICAL EXAMINATION ON DISCHARGE: Vitals (See below) General: Patient was sitting up at the bedside and appears comfortable, not in distress, is awake and alert, oriented 3 HEENT: Atraumatic and normocephalic CVS: +S1S2 Lungs: Auscultation is without wheezing, crackles or rhonchi Abdomen: Abdomen remains nondistended, nontender. It is soft and obese Extremities: Lower extremity still reveals 1-2+ pitting edema, however, has had slight improvement compared to yesterday Skin: Area of erythema of his bilateral lower extremities has had near resolution LABORATORY DATA: Please see below. IMAGING: ECHO 01/2021 Sinus tachycardia without intraventricular conduction disturbance. Technically very difficult study in light of the patient's body habitus and ability of the echo stenographer. All measurements are somewhat suspect. M-Mode and 2-dimensional echocardiography was performed with pulse, continuous wave, color flow and tissue Doppler study. Normal-appearing left ventricular size, wall thickness and wall motion. Normal left atrial size with grade 1 left ventricular (LV) diastolic dysfunction but current estimated mean left atrial pressure within normal limits. Right heart chamber sizes appear to be upper limits of normal to slightly increased with normal wall motion. Estimated pulmonary arterial pressure was moderately increased. Normal inferior vena cava (IVC) size and collapse against an elevated central venous pressure as a cause of the observed edema. Normal aortic dimensions. Mild calcific aortic stenosis without apparent insufficiency. Mild degenerative changes of the mitral valvular apparatus without clear valvular dysfunction. Normal-appearing tricuspid valve with very mild insufficiency. Unable to visualize any intracardiac mass or pericardial effusion. Comparing today's study with that of August 16, 2020 there did not appear to be a significant change. CXR 03/24: 1. No evidence of acute cardiopulmonary pathology. 2. Other findings as noted. No significant change. ACTIVITY: [As tolerated]. DISCHARGE PLAN: Follow-up with primary care provider, and cardiology within the next 7 days Remain compliant with treatment plan and medications Return to the ER if you experience any problems DISPOSITION: Home; patient refuses services DISCHARGE CONDITION: [Stable]. TIME SPENT ON DISCHARGE: 35 minutes. Vital Signs/I&Os Vital Signs Date Time Temp Pulse Resp B/P (MAP) Pulse Ox O2 Delivery O2 Flow Rate FiO2 03/28/21 05:42 97.3 87 18 117/74 (88) 03/27/21 20:40 2.0 03/27/21 18:05 Nasal Cannula 03/27/21 06:00 95 I&O- Last 24 Hours up to 6 AM 03/28/21 06:00 Intake Total 1920 ml Output Total 675 ml Balance 1245 ml Laboratory Data Labs 24H Laboratory Tests 2 03/27/21 16:49: Bedside Glucose (Misc Panel) 235H 03/27/21 20:09: Bedside Glucose (Misc Panel) 307H 03/28/21 07:09: Anion Gap 1L, Glomerular Filtration Rate > 60.0, Calcium Level 8.6L, Magnesium Level 2.0 03/28/21 11:21: Bedside Glucose (Misc Panel) 278H CBC/BMP Laboratory Tests 03/28/21 07:09 FSBS Laboratory Tests Test 03/27/21 16:49 03/27/21 20:09 03/28/21 11:21 Range/Units Bedside Glucose (Misc Panel) 235 307 278 80-115 MG/DL Microbiology Microbiology 03/24/21 Blood Culture - Preliminary, Resulted No Growth after 72 hours. All specime... 03/24/21 Blood Culture - Preliminary, Resulted No Growth after 72 hours. All specime... 03/24/21 Respiratory Virus Panel (PCR) ([facility]) - Final, Complete Discharge Medications Scheduled Aspirin (Aspirin EC) 81 Mg Tablet.dr, 81 MG PO QHS, (Reported) Atorvastatin Calcium (Atorvastatin Calcium) 10 Mg Tablet, 10 MG PO QHS, (Reported) Budesonide/Formoterol (Symbicort 80-4.5 Mcg Inhaler) 6.9 Gm Hfa.aer.ad, 2 PUFF INH BID, (Reported) Doxycycline Hyclate (Doxycycline Hyclate) 100 Mg Tablet, 100 MG PO BID Duloxetine Hcl (Duloxetine HCl) 30 Mg Cap, 30 MG PO TID, (Reported) Glimepiride (Glimepiride) 2 Mg Tablet, 2 MG PO BID, (Reported) Insulin Detemir (Levemir Flextouch) 100 Unit/1 Ml Insuln.pen, 15 UNIT SC DAILY, (Reported) Insulin Detemir (Levemir Flextouch) 100 Unit/1 Ml Insuln.pen, 10 UNIT SC QHS, (Reported) Insulin Lispro (Humalog Kwikpen U-100) 100 Unit/1 Ml Insuln.pen, 1 DOSE SC AC, (Reported) PER SLIDING SCALE Metoprolol Tartrate (Metoprolol Tartrate) 25 Mg Tablet, 25 MG PO BID, (Reported) Tamsulosin HCl (Flomax) 0.4 Mg Cap, 0.4 MG PO BID, (Reported) Torsemide (Torsemide) 20 Mg Tablet, 20 MG PO ASDIRECTED 2 tab in morning and 1 tab in evening Scheduled PRN Albuterol Sulfate (Ventolin Hfa) 18 Gm Hfa.aer.ad, 2 PUFFS INH QID PRN for SO B/WHEEZING, (Reported) Epinephrine (Epipen 2-Shashi) 0.3 Mg/0.3 Ml Inj, 0.3 MG INJ ASDIRECTED PRN for ANAPHYLAXIS, (Reported) Ketoconazole (Ketoconazole) 15 Gm Cream..g., 1 APLCT TOP BID PRN for RASH, (Reported) APPLY TO FACE Levalbuterol HCl (Levalbuterol HCl) 1.25 Mg/3 Ml Vial.neb, 1 VIAL NEB Q4H PRN for SOB/WHEEZING, (Reported) Trazodone HCl (Trazodone HCl) 50 Mg Tablet, 50 MG PO QHS PRN for INSOMNIA, (Reported) Allergies Coded Allergies: Penicillins (Verified Allergy, Severe, anaphylaxis, 06/19/20) per Dr. García primidone (Verified Allergy, Severe, 01/26/21) hives codeine (Verified Allergy, Intermediate, HIVES, 11/20/20) ibuprofen (Verified Allergy, Intermediate, face swelling, 11/20/20) BRAND [employer]VIL bee venom protein (honey bee) (Verified Allergy, Unknown, 06/19/20) LISA VIRAMONTES MD Mar 28, 2021 14:19
== END 2021-03-28 15:45 | disposition home or self-care (01) | DRG 292 ==
LOC: M ED 13:28 → M ED INP 15:15 → ENRESERV 18:58 → M PCU 20:03 → M MS5PR 03-26 14:07
PROVIDERS: ADMIT Internal Medicine; ATTEND Internal Medicine
DX: I11.0 Hypertensive heart disease with heart failure (principal); J96.11 Chronic respiratory failure with hypoxia; L03.115 Cellulitis of right lower limb; L03.116 Cellulitis of left lower limb; J44.9 Chronic obstructive pulmonary disease, unspecified; I50.33 Acute on chronic diastolic (congestive) heart failure; Z99.81 Dependence on supplemental oxygen; G47.33 Obstructive sleep apnea (adult) (pediatric); E11.42 Type 2 diabetes mellitus with diabetic polyneuropathy; I27.20 Pulmonary hypertension, unspecified; I35.0 Nonrheumatic aortic (valve) stenosis; E78.5 Hyperlipidemia, unspecified; F41.9 Anxiety disorder, unspecified; E66.01 Morbid (severe) obesity due to excess calories; F32.9 Major depressive disorder, single episode, unspecified; G25.0 Essential tremor; G50.0 Trigeminal neuralgia; F43.10 Post-traumatic stress disorder, unspecified; H91.91 Unspecified hearing loss, right ear; J30.2 Other seasonal allergic rhinitis; Z87.442 Personal history of urinary calculi; Z87.891 Personal history of nicotine dependence; N40.0 Benign prostatic hyperplasia without lower urinary tract symptoms; Z79.4 Long term (current) use of insulin; Z79.82 Long term (current) use of aspirin; Z79.899 Other long term (current) drug therapy; Z88.0 Allergy status to penicillin; Z88.5 Allergy status to narcotic agent; Z88.6 Allergy status to analgesic agent; Z88.8 Allergy status to other drugs, medicaments and biological substances; Z91.030 Bee allergy status; Z68.38 Body mass index [BMI] 38.0-38.9, adult

== ENCOUNTER 2021-04-25 10:09 | Emergency (ER) | payer MEDICARE ==
[~2021-04-25] VITALS: Ht 177.8 cm; Wt 119.0 kg
[~2021-04-25 10:09] MED LIST changes: +HUMA100I5 SC; +TORS20TA2 PO
[2021-04-25 10:18] VITALS: BP 116/63
[2021-04-25 10:56] LABS: HEMATOCRIT 40.6 % (42.0-52.0); HEMOGLOBIN 12.4 g/dl (13.5-17.5); MEAN CORPUSCULAR HEMOGLOBIN 25.7 pg (27.0-33.0); MEAN CORPUSCULAR HGB CONC 30.5 g/dl (32.0-36.5); MEAN CORPUSCULAR VOLUME 84.2 fl (80.0-96.0); PLATELET COUNT, AUTOMATED 435 10^3/uL (150-450); RED BLOOD COUNT 4.82 10^6/uL (4.30-6.10); WHITE BLOOD COUNT 13.4 10^3/uL (4.0-10.0)
[2021-04-25 11:55] LABS: BLOOD UREA NITROGEN 16 MG/DL (7-18); CALCIUM LEVEL 9.1 MG/DL (8.8-10.2); CARBON DIOXIDE LEVEL 34 MEQ/L (21-32); CHLORIDE LEVEL 100 MEQ/L (98-107); CREATININE FOR GFR 0.97 MG/DL (0.70-1.30); GLOMERULAR FILTRATION RATE > 60.0 (>49); GLUCOSE, FASTING 272 MG/DL (70-100); NT-PRO BNP 30 PG/ML (<125); POTASSIUM SERUM 4.2 MEQ/L (3.5-5.1); SODIUM LEVEL 140 MEQ/L (136-145)
[2021-04-25] MEDS ORDERED: TORSEMIDE 20 MG TAB PO ONE (12:20)
== END 2021-04-25 12:59 | disposition home or self-care (01) ==
LOC: M ED 10:09
DX: I87.2 Venous insufficiency (chronic) (peripheral) (principal); E11.9 Type 2 diabetes mellitus without complications; J44.9 Chronic obstructive pulmonary disease, unspecified; I11.0 Hypertensive heart disease with heart failure; I50.9 Heart failure, unspecified; E78.5 Hyperlipidemia, unspecified; G47.33 Obstructive sleep apnea (adult) (pediatric); Z79.4 Long term (current) use of insulin; Z79.51 Long term (current) use of inhaled steroids; Z79.82 Long term (current) use of aspirin; Z79.899 Other long term (current) drug therapy; Z88.0 Allergy status to penicillin; Z88.6 Allergy status to analgesic agent; Z88.8 Allergy status to other drugs, medicaments and biological substances; Z91.11 Patient's noncompliance with dietary regimen; Z91.14 Patient's other noncompliance with medication regimen; Z91.030 Bee allergy status

== ENCOUNTER 2021-06-21 08:18 | Inpatient (IN) | payer MEDICARE ==
[~2021-06-21] VITALS: Ht 177.8 cm; Wt 116.7 kg
[~2021-06-21 08:18] MED LIST changes: +DOXY-443 PO; -DOXY1CAP62 PO
[2021-06-21] MEDS ORDERED: ONDANSETRON 4MG/2ML VIAL IV ONE (08:50)
[2021-06-21] MEDS ORDERED: predniSONE 20 MG TAB PO ONE (08:50)
[2021-06-21] MEDS ORDERED: ALPRAZolam 0.5 MG TAB PO ONE (09:00)
[2021-06-21 09:17] LABS: VENOUS BASE EXCESS 4.7 (-2.0-2.0); VENOUS HCO3 30.2 MEQ/L (23.0-27.0); VENOUS PARTIAL PRESSURE CO2 48.8 mmHg (38.0-50.0); VENOUS PARTIAL PRESSURE O2 93.2 mmHg (30.0-50.0); VENOUS STANDARD HCO3 28.6 MEQ/L; VENOUS TOTAL CO2 31.7 MEQ/L (24.0-28.0)
[2021-06-21 09:22] LABS: BASO # 0.1 10^3/uL (0.0-0.2); BASO % 0.4 % (0.0-1.0); EOS # 0.2 10^3/uL (0.0-0.5); EOS % 0.7 % (0.0-3.0); HEMATOCRIT 40.5 % (42.0-52.0); HEMOGLOBIN 12.2 g/dl (13.5-17.5); LYMPH # 1.1 10^3/uL (1.5-5.0); LYMPH % 4.5 % (24.0-44.0); MEAN CORPUSCULAR HEMOGLOBIN 24.8 pg (27.0-33.0); MEAN CORPUSCULAR HGB CONC 30.1 g/dl (32.0-36.5); MEAN CORPUSCULAR VOLUME 82.5 fl (80.0-96.0); MONO % 5.9 % (2.0-8.0); NEUTROPHILS # 22.5 10^3/uL (1.5-8.5); NEUTROPHILS % 88.1 % (36.0-66.0); PLATELET COUNT, AUTOMATED 547 10^3/uL (150-450); RED BLOOD COUNT 4.91 10^6/uL (4.30-6.10); WHITE BLOOD COUNT 25.6 10^3/uL (4.0-10.0)
[2021-06-21] MEDS: MORPHINE 4 MG/ML 1ML VIAL/SYRINGE (J2270) IV PRN ×2 (09:24→18:09)
[2021-06-21] MEDS: COMBIVENT RESPIMAT 100-20MCG INHALER 4GM INH SCH ×3 (09:30→09:56)
--- NOTE | 2021-06-21 09:34 | REP ---
INDICATION: swelling. COMPARISON: Comparison study 03/04/2021. TECHNIQUE: Bilateral lower extremity duplex venous scanning is performed from the groin to the ankle level. FINDINGS: The deep veins are anechoic and fully compressible from the groin to the popliteal fossa in the left and right lower extremity. Color flow imaging is homogeneous. Spectral Doppler interrogation demonstrates intact respiratory variation in flow and normal manual augmentation of flow. There is no evidence of deep vein thrombosis in the femoropopliteal veins. The patient declined scanning below the knees. IMPRESSION: No evidence of DVT in the femoropopliteal veins.. <Electronically signed by Wally Horne > 06/21/21 [id number]
[2021-06-21 09:49] LABS: MONO # 1.5 10^3/uL (0.0-0.8)
--- NOTE | 2021-06-21 09:57 | REP ---
INDICATION: DYSPNEA/COUGH. COMPARISON: Comparison chest x-ray [address] March [address] study March 05, 2021. TECHNIQUE: Portable upright AP chest radiograph. FINDINGS: There is a large cyst stable pleural based soft tissue mass projecting in the right base. Recent chest CT study demonstrates this is due to abdominal fat associated with a posterior, Bochdalek's, diaphragmatic hernia. No infiltrate is seen. No pleural effusion is noted. Heart is not enlarged. Pulmonary vasculature is not increased. Oxygen delivery tubing and monitoring electrodes are seen. IMPRESSION: No active disease. <Electronically signed by Wally Horne > 06/21/21 [id number]
[2021-06-21 10:05] LABS: ALBUMIN 3.2 GM/DL (3.2-5.2); ALT/SGPT 16 U/L (12-78); BILIRUBIN,DIRECT 0.1 MG/DL (0.0-0.2); BILIRUBIN,TOTAL 0.6 MG/DL (0.2-1.0); BLOOD UREA NITROGEN 13 MG/DL (7-18); CALCIUM LEVEL 9.3 MG/DL (8.8-10.2); CARBON DIOXIDE LEVEL 31 MEQ/L (21-32); CHLORIDE LEVEL 99 MEQ/L (98-107); GLOMERULAR FILTRATION RATE > 60.0 (>49); GLUCOSE, FASTING 213 MG/DL (70-100); SODIUM LEVEL 138 MEQ/L (136-145); TOTAL PROTEIN 7.5 GM/DL (6.4-8.2)
--- OUTSIDE RECORDS SUMMARY | 2021-06-21 10:05 | CCD | Continuity of Care Document ---
Author Author Corey CHOU D.O. Organization Unknown Address [address] [place] [address] Phone [phone] Care Team Providers Care Check Out Clerk Name Role Phone Chas Louise M.D. [facility] [phone] AUT[facility] Unavailable Corey Wilson M.D. AUT[facility] [phone] Problems Active Problems Provider Date Essential hypertension Garrett Reyes JR, MD Onset: 03/24/20 17 Chronic obstructive lung disease Corey Chou D.O Onset : 04/10/2020 Panacinar emphysema Corey Chou D.O Onset: 04/10/2020 Ex-smoker Corey Chou D.O Onset: 04/10/2020 Hypoxemia Corey Chou D.O Onset: 09/25/2020 Systolic heart failure Corey Chou D.O Onset: 11/29/19 21 Social History Type Date Description Comments Sex Unknown Cigarette Use Pack Years - 54 ETOH Use Rarely consumes alcohol Tobacco Use Start: 07/19/73 End: 07/19/00 Patient is a forme r smoker Recreational Drug Use Current Drug User MARIJUAN A TINCTURE TID Smoking Status Reviewed: 11/28/20 Patient is a former smoker Allergies and adverse reactions Active Allergies Criticality Reaction | Severity Comments Date Penicillin Unable to assess criticality THROAT CLOSING 03/24/2017 Codeine Unable to assess criticality SEVERE ITCHING 03/24/2017 Advil Unable to assess criticality FACE SWELLING 03/24/2017 Bee Sting Unable to assess criticality THROAT CLOSING 03/24/2017 Primidone Unable to assess criticality itching,dizz iness 11/28/2020 Medications Active Medications SIG Qnty Indications Ordering Provide r Date Xopenex 1.25mg/3ML Nebulizer 1 vial inhaled every 6 hours as needed 360units J44.9 JANETH Willoughby 01/28/2021 Nystatin 359340Xcgr/ML Suspension take 4 milliliters by mouth/swish and swallow 4 times per day x 10 days 200ml Corey Adame MD 06/27/[address] 1 by mouth twice a day (dysphagia, reflux) 60caps R13.12 Corey Adame MD 05/15/2020 Prednisone 10mg Tablets 40mg po qd x 4 days then 30mg qd x 4 days then 20mg qd x 4 days then 10mg qd x 4 days and stop 40tabs Bhavya Raines Furosemide 40mg Tablets 1 tab by mouth every day 90tabs Bhavya Raines 00 Ketoconazole 2% Cream as need ed Unknown Levemir Flextouch 10 0Unit/ML Solution Pen-Inject 5 units SQ twice a day Unknown Oxygen Device 2L cont.-LC W () Unknown Metoprolol Succinate ER 25mg Tablets ER 24HR 1 tab by mouth twice daily Unknown CPAP Device 8cm lcw Unknown Ventolin HFA 108(90Base) mcg/Act A erosol 2 puffs qid/prn 18gm John VillalobosO Aspir-[address] 1 tab by mouth every day Unknown Tamsulosin HCL 0.4mg Capsules 2 cap by mouth every day Unknown Atorvastatin Calcium 20mg Tablets 1 tab by mouth every day Unknown Duloxetine HCL 30mg Caps DR Part 2 caps by mouth every morning, 1 cap every evening Unknown Symbicort 160-4.5mcg/Act Aerosol 2 puff twice a day 10.200gm John VillalobosO Epipen 2-Shashi 0.3mg/0 .3ML Solution Auto-Inject as directed Unknown Medications Administered in Office Medication SIG Qnty Indications Ordering Provider Date Covid-19 vaccine, Unspecified Inj ection Unknown 10/09/2020 Covid-19 vaccine, Unspecified Inj ection Unknown 09/11/2020 Immunizations CPT Code Status Date Vaccine Lot # [id number] Given 05/20/2020 Flublock, Quadrivalent Vital Signs Date Vital Result Comment 11/28/2020 10:31am BP Systolic 102 mmHg BP Diastolic 70 mmHg Heart Rate 87 /min O2 % BldC Oximetry 962 % Height 70 inches 5'10" Weight 248.00 lb per pt BMI (Body Mass Index) 35.6 kg/m2 [place] Body Weight 166 lb Weight 112.493 kg BSA (Body Surface Area) 2.29 m2 09/25/2020 10:32am BP Systolic 118 mmHg BP Diastolic 80 mmHg Heart Rate 80 /min O2 % BldC Oximetry 972 % 95 2L Height 70 inches 5'10" Weight 253.00 lb 240-stated by silverio vazquez BMI (Body Mass Index) 36.3 kg/m2 [place] Body Weight 166 lb Weight 114.761 kg BSA (Body Surface Area) 2.31 m2 Results Test Acquired Date Facility Test Result H/L Range Note FVL/Winnie 11/28/2020 [facility] SEE IMAGE FVC-Pred 4.61 L FVC-Pre 0.82 L FVC-%Pred-Pre 17 L FVC-LLN 3.67 L Fev1-Pred 3.44 L Fev1-Pre 0.60 L Fev1-%Pred-Pre 17 L Fev1-LLN 2.65 L Fev6-Pred 4.37 L Fev6-Pre 0.82 L Fev6-%Pred-Pre 18 L Fev6-LLN 3.46 L Mez0hku-Hkdx 75 % Cse2jot-Pwj 74 % Axm8ows-%Pred-Pre 99 % Ypy9nch-GXZ 65 % Txb8zkl-Jynu 95 % Rir2iev-Amg 100 % Uly7gae-%Pred-Pre 105 % FEFMax-Pred 8.82 L/E/sec FEFMax-Pre 0.96 L/E/sec FEFMax-%Pred-Pre 10 L/E/sec FEFMax-LLN 6.50 L/E/sec Mwe2303-Rzgr 2.72 L/E/sec Neb6809-Umu 0.49 L/E/sec Ixk8119-%Pred-Pre 18 L/E/sec Wlj8800-LQT 1.12 L/E/sec ExpTime-Pre 2.65 sec Xqp3ahv6-Dkdp 78 % Eow5rve2-Bdo 74 % Jgs3klg3-%Pred-Pre 94 % Odm9rcp7-QRX 69 % Procedures Date Code Description Status 04/10/2021 20764 Office/Outpatient Established Lo w MDM 20-29 Min Completed 04/10/2021 44439 Spirometry Completed 11/28/2020 33714 Office/Outpatient Established Mo d MDM 30-39 Min Completed 11/28/2020 06159 Spirometry Completed Medical Devices Description No Information Available Encounters Type Date Location Provider Dx Diagnosis Office Visit 11/28/2020 10:30a [facility] kurt Chou D.O I50.20 Unspecified systolic (conges tive) heart failure J43.1 Panlobular emphysema Z87.891 Personal history of nicotine dependence Assessments Date Code Description Provider 04/10/2021 J44.9 Chronic obstructive pulmonary di sease, unspecified Corey Chou D.O 04/10/2021 J43.1 Panlobular emphysema Corey quiles D.O 04/10/2021 Z87.891 Personal history of nicotine dep endence Corey Chou D.O 11/28/2020 I50.20 Unspecified systolic (congestive ) heart failure Corey Chou D.O 11/28/2020 J43.1 Panlobular emphysema Corey quiles D.O 11/28/2020 Z87.891 Personal history of nicotine dep endence Corey Chou D.O Plan of Treatment 11/28/2020 - Corey Chou D.O* I50.20 Unspecified systolic (congestive) heart failure * J43.1 Panlobular emphysema * Z87.891 Personal history of nicotine dependence * * Comments:* ~ Having reviewed the history, physical, and diagnostic findings with the patient, I have recommended that he follow here in three months with spirometry flow volume loop testing. * Follow up:* Follow in three months with spirometry/FVL. Follow up with Dr. Louise regarding CHF Functional Status Description No Information Available Mental Status Description No Information Available Referrals Description No Information Available
--- OUTSIDE RECORDS SUMMARY | 2021-06-21 10:05 | CCD | Continuity of Care Document ---
Author Author Corey REAVES DO Organization Unknown Address [address] [place] [address] Phone [phone] Care Team Providers Care Manager Of Change Name Role Phone Chas Louise MD AUTM [phone] Corey Chou DO AUTM [phone] Justice Patton MD AUTM [phone] [facility] AUTM [phone] [facility] AUTM [phone] Problems Active Problems Provider Date Rosacea Chas Louise M.D. Onset: 03/08/2016 Anxiety state Chas Louise M.D. Onset: 03/08/2016 Social History Type Date Description Comments Sex Unknown ETOH Use Occasionally consumes alcohol so cially Tobacco Use Start: Unknown End: Unknown Patient is a former smoker 1 -2 PPD x 25yrs, Quit 2000 Allergies and adverse reactions Active Allergies Criticality Reaction | Severity Comments Date Penicillin Unable to assess criticality throat edema 03/06/2016 Codeine Unable to assess criticality itching 03/06/2016 Advil Unable to assess criticality Facial swelling Onl y To Advil, can take ibuprofen 03/06/2016 Bee Sting Unable to assess criticality Anaphylaxis 03/06/2016 Metformin Unable to assess criticality vomitting 11/29/2019 predniSONE Unable to assess criticality itching 11/27/2020 Adderall Unable to assess criticality 11/28/2020 Primidone Unable to assess criticality 11/28/2020 Medications Active Medications SIG Qnty Indications Ordering Provide r Date Metolazone 2.5mg Tablets Take 1 tablet by mouth daily for edema 1tabs Uli Reaves, DO Zithromax Z-Shashi 250mg Tablets take 2 tabs by mouth today, then one tab daily for 4 days 6tabs Tan Louise M.D. 02/05/2021 Trazodone HCL 50mg Tablets take one tablet by mouth at bedtime 30tabs Chas Louise M.D. 021 Freestyle Ines 2/[place]/Flash Glucose M onitoring System 2Reader Device as directed dm 2 uncontrolled. 1unlaisha Louise M.D. 12/31/2020 Freestyle Ines 2/Sensor/Flash Glucose M onitoring System 2Sensor Misc reapply every 2 weeks dx uncontrolled dm2 6unlaisha Louise M.D. 12/31/2020 Metoprolol Tartrate 25mg Tablets 1 by mouth twice a day 180tabs Chas Louise M.D. Levemir Flextouch 10 0Unit/ML Solution Pen-Inject inject 10 U bid - Then Titrate Upward if possible. 45ml Chas Louise M.D. 09/11/2020 BD Pen Needle/[place]/Ultra -Fine/32G X 4mm 32G X 4 mm Misc 1 times a day 100units Chas Louise M.D. 09/11 Triamcinolone Acetonide 0.5% Cream apply twice a day as directed - do not overuse, risk of atropy. 45gm Chas Louise M.D. 07/17/2020 Atorvastatin Calcium 10mg Tablets 1 by mouth every day 90tabs Chas Louise M.D. 11/28/2019 Nebulizer Device use as d irected susana Louise M.D. 12/22/2018 Nebulizer Kit/Tubing/Mouthpiece K it use four times a day dx j44.9 1unlaisha Louise M.D. 0 12/22/2018 Sildenafil Citrate 20mg Tablets 2-5 tab by mouth 1 hour before intercourse 25tausha Louise M.D. 11/25/2018 Onetouch Ultrasoft Lancets Misc test twice a day e11.65 200units Chas Louise M.D. 07/29/19 19 Onetouch Ultra Blue Strips use twice daily to check blood sugar dx e11.65 200units Chas simpson M.D. 07/29/2018 Onetouch Ultra 2 w/Device Kit test twice a day and as directed e11.65 1units Chas Louise M.D. 07/29/2018 Tamsulosin HCL 0.4mg Capsules 2 daily 1/2 hour after same meal 180caps Chas Louise M.D. 2017 Medical Marijuana E78.5 Ernesto Martell 03/10/[address] Part 2 tabs in Am and 1 in PM by mouth daily 240caps R20.2 Chas Louise M.D. 02/03/2017 Denavir 1% Cream apply four times a day to affected area as needed 10gm G60.9 Chas Louise M.D. Epipen 2-Shashi 0.3mg/0 .3ML Solution Auto-Inject as directed 2units J44.9 Chas Louise M.D. 016 Aspirin Ec Low Dose 81mg Tablets D R 1 by mouth every day 30tabs Chas Louise M.D. 03/06/2016 Ketoconazole 2% Cream twice a day to effected area on face 60gm R20.2 Chas Louise M.D. 03/06 Symbicort 160-4.5mcg/Act Aerosol 2 puff twice a day Corey Chou DO Proair HFA 108(90Base) mcg/Act Aer osol 2 puffs four times a day as needed Corey Chou DO Ipratropium [place]/Albuterol Sulfate 0.5-2.5(3)mg/3ML Solution 1 vial tid as needed Corey Rodríguez DO Glimepiride 2mg Tablets 1 Tab PO bid 60tabs Chas Louise M.D. Torsemide 20mg Tablets 3 am a nd 1 pm Unknown History Medications Lasix 40mg Tablets 2 by mouth every day as needed for swelling. Chas Louise M.D. 2020 - 03/31/2021 Zithromax Z-Shashi 250mg Tablets take 2 tabs by mouth today, then one tab daily for 4 days 6tabs Tan Louise M.D. 12/23/2020 - 12/31/2020 Medications Administered in Office Medication SIG Qnty Indications Ordering Provider Date Covid-19 vaccine, Unspecified Inj ection Unknown 10/09/2020 Covid-19 vaccine, Unspecified Inj ection Unknown 09/15/2020 Administration Of Flu Vaccine Inj ection Chas Louise M.D. 04/26/2018 Immunizations CPT Code Status Date Vaccine Lot # U-Flu Given 04/10/2020 Influenza,Unspecified [id number] Given 04/26/2018 Influenza Virus Vaccine, Quadrivalent ([id number]), Derived From Cell [id number] Vital Signs Date Vital Result Comment 04/30/2021 2:15pm BP Systolic 104 mmHg BP Diastolic 56 mmHg Heart Rate 103 /min Height 59 inches 4'11" Weight 260.00 lb O2 % BldC Oximetry 9495 % BMI (Body Mass Index) 52.5 kg/m2 03/10/2021 10:35am BP Systolic 124 mmHg BP Diastolic 70 mmHg Height 59 inches 4'11" Weight 252.00 lb stated O2 % BldC Oximetry 97 % 2 liters BMI (Body Mass Index) 50.9 kg/m2 Results Test Acquired Date Facility Test Result H/L Range Note Influenza A/B RSV Covid Amp 03/03/[address] [id number] [phone] Influenza A Amplification NEGATIVE Normal Negati ve 1 Influenza B Amplification NEGATIVE Normal Negative 2 RSV Amplification NEGATIVE Normal Negative 3 Sars Covid-19 Amplification NEGATIVE Normal Negative 4 CBC With Differential 03/03/[address] [id number] [phone] White Blood Count 14.9 10 High 4.0-10.0 Red Blood Count 4.86 10 Normal 4.30-6.10 Hemoglobin 12.9 g/dL Low 13.5-17.5 Hematocrit 41.9 % Low 42.0-52.0 Mean Corpuscular Volume 86.2 fl Normal 80.0-96.0 Mean Corpuscular Hemoglobin 26.5 pg Low 27.0-33.0 Mean Corpuscular HGB Conc 30.8 g/dL Low 32.0-36.5 Red Cell Distribution Width 17.1 % High 11.5-14.5 Platelet Count, Automated 390 10 Normal 150-450 Neutrophils % 80.2 % High 36.0-66.0 Lymph % 9.5 % Low 24.0-44.0 Sac % 6.7 % Normal 2.0-8.0 Eos % 2.3 % Normal 0.0-3.0 Baso % 0.6 % Normal 0.0-1.0 Immature Granulocyte % 0.7 % Normal 0-3.0 Nucleated Red Blood Cell % 0.0 % Normal 0-0 Neutrophils # 11.9 10 High 1.5-8.5 Lymph # 1.4 10 Low 1.5-5.0 Sac # 1.0 10 High 0.0-0.8 Eos # 0.4 10 Normal 0.0-0.5 Baso # 0.1 10 Normal 0.0-0.2 Cardiac Marker Panel 03/03/2021 [facility] [address] [place], [place] [id number] [phone] CPK Creatine Phosphokinase 74 U/L Normal 39-30 8 CK-MB Value Mass 2.2 NG/ML Normal <3.6 MB/CK Relative Index 2.97 Normal < Or =4 5 Troponin I < 0.02 NG/ML Normal < 0.10 6 Liver Profile 03/03/2021 [facility] [address] [place] [address] [phone] Ast/Sgot 13 U/L Normal 7-37 Alt/SGPT 23 U/L Normal 12-78 Alkaline Phosphatase 101 U/L Normal 45-117 Bilirubin,Total 0.4 mg/dL Normal 0.2-1.0 Bilirubin,Direct 0.1 mg/dL Normal 0.0-0.2 Total Protein 7.0 GM/DL Normal 6.4-8.2 Albumin 3.3 GM/DL Normal 3.2-5.2 Albumin/Globulin Ratio 0.9 Normal Basic Metabolic Profile 03/03/[address] [address] [phone] Glucose, Fasting 195 mg/dL High 70-100 Blood Urea Nitrogen 12 mg/dL Normal 7-18 Creatinine For GFR 0.94 mg/dL Normal 0.70-1.30 Glomerular Filtration Rate > 60.0 Normal >49 7 Sodium Level 138 mEq/L Normal 136-145 Potassium Serum 4.6 mEq/L Normal 3.5-5.1 Chloride Level 100 mEq/L Normal 98-107 Carbon Dioxide Level 33 mEq/L High 21-32 Anion Gap 5 mEq/L Low 8-16 Calcium Level 8.3 mg/dL Low 8.8-10.2 Laboratory test finding 03/03/[address] [address] [phone] NT-Pro BNP 25 pg/mL Normal <125 Thyroxine (T4) 6.9 g/dL Normal 4.5-12.0 Thyroid Stimulating Hormone 1.610 uIU/ML Normal 0.358-3.740 Venous Blood Gas 03/03/2021 [facility] n[facility] [address] [place] [address] [phone] Venous PH 7.358 units Normal 7.330-7.430 Venous Partial Pressure Co2 60.4 mmHg High 38.0-50.0 Venous Partial Pressure O2 34.9 mmHg Normal 30.0-50.0 Venous Total Co2 35.1 mEq/L High 24.0-28.0 Venous Hco3 33.2 mEq/L High 23.0-27.0 Venous Base Excess 5.9 High -2.0-2.0 Venous Standard Hco3 28.9 mEq/L Normal Venous O2 Saturation 61.4 % Normal 60.0-80.0 Respiratory Panel 02/16/2021 [facility] [address] [place] [address] [phone] Respiratory Panel This respiratory <SEE NOTE> 8 Laboratory test finding 02/16/[address] [address] [phone] NT-Pro BNP 27 pg/mL Normal <125 Thyroxine (T4) 6.6 g/dL Normal 4.5-12.0 Thyroid Stimulating Hormone 1.250 uIU/ML Normal 0.358-3.740 Basic Metabolic Profile 02/16/[address] [address] [phone] Glucose, Fasting 181 mg/dL High 70-100 Blood Urea Nitrogen 18 mg/dL Normal 7-18 Creatinine For GFR 0.89 mg/dL Normal 0.70-1.30 Glomerular Filtration Rate > 60.0 Normal >49 9 Sodium Level 137 mEq/L Normal 136-145 Potassium Serum 4.3 mEq/L Normal 3.5-5.1 Chloride Level 100 mEq/L Normal 98-107 Carbon Dioxide Level 31 mEq/L Normal 21-32 Anion Gap 6 mEq/L Low 8-16 Calcium Level 9.2 mg/dL Normal 8.8-10.2 Liver Profile 02/16/2021 [facility] [address] [place] [address] [phone] Ast/Sgot 11 U/L Normal 7-37 Alt/SGPT 26 U/L Normal 12-78 Alkaline Phosphatase 112 U/L Normal 45-117 Bilirubin,Total 0.5 mg/dL Normal 0.2-1.0 Bilirubin,Direct 0.2 mg/dL Normal 0.0-0.2 Total Protein 7.4 GM/DL Normal 6.4-8.2 Albumin 3.6 GM/DL Normal 3.2-5.2 Albumin/Globulin Ratio 0.9 Normal Laboratory test finding 02/16/[address] [address] [phone] Lactic Acid Sepsis Protocol 1.5 mmol/L Normal 0.4- 2.0 10 CBC With Differential 02/16/[address] [address] [phone] White Blood Count 14.4 10 High 4.0-10.0 Red Blood Count 5.40 10 Normal 4.30-6.10 Hemoglobin 14.0 g/dL Normal 13.5-17.5 Hematocrit 46.2 % Normal 42.0-52.0 Mean Corpuscular Volume 85.6 fl Normal 80.0-96.0 Mean Corpuscular Hemoglobin 25.9 pg Low 27.0-33.0 Mean Corpuscular HGB Conc 30.3 g/dL Low 32.0-36.5 Red Cell Distribution Width 18.1 % High 11.5-14.5 Platelet Count, Automated 331 10 Normal 150-450 Neutrophils % 78.9 % High 36.0-66.0 Lymph % 10.8 % Low 24.0-44.0 Sac % 5.7 % Normal 2.0-8.0 Eos % 3.3 % High 0.0-3.0 Baso % 0.9 % Normal 0.0-1.0 Immature Granulocyte % 0.4 % Normal 0-3.0 Nucleated Red Blood Cell % 0.0 % Normal 0-0 Neutrophils # 11.4 10 High 1.5-8.5 Lymph # 1.6 10 Normal 1.5-5.0 Sac # 0.8 10 Normal 0.0-0.8 Eos # 0.5 10 Normal 0.0-0.5 Baso # 0.1 10 Normal 0.0-0.2 Venous Blood Gas 02/16/2021 [facility] [address] [place], [place] [phone] Venous PH 7.391 units Normal 7.330-7.430 Venous Partial Pressure Co2 51.4 mmHg High 38.0-50.0 Venous Partial Pressure O2 51.8 mmHg High 30.0-50.0 Venous Total Co2 32.1 mEq/L High 24.0-28.0 Venous Hco3 30.5 mEq/L High 23.0-27.0 Venous Base Excess 4.3 High -2.0-2.0 Venous Standard Hco3 28.0 mEq/L Normal Venous O2 Saturation 86.8 % High 60.0-80.0 Cardiac Marker Panel 02/16/2021 [facility] enter [address] [place], [place] [phone] CPK Creatine Phosphokinase 51 U/L Normal 39-30 8 CK-MB Value Mass 1.7 NG/ML Normal <3.6 MB/CK Relative Index 3.33 Normal < Or =4 11 Troponin I < 0.02 NG/ML Normal < 0.10 12 Istat ABG 01/26/2021 [facility] [address] [place], [place] [id number] [phone] iSTAT pH 7.364 units Normal 7.350-7.450 iSTAT pCO2 56.8 MMHG High 35.0-45.0 iSTAT pO2 77.0 MMHG Low 80-105 iSTAT Tco2 34.0 mmol/L High 23.0-27.0 iSTAT Hco3 32.4 mmol/L High 22.0-26.0 iSTAT Base Excess 7.0 mmol/L High -2.0-3.0 iSTAT sO2 94 % Low 95-98 Laboratory test finding 01/26/2021 [facility] [address] [place] [address] [phone] iSTAT Troponin 0.00 NG/ML Normal 0.00-0.08 Istat ABG 01/11/2021 [facility] [address] [place] [address] [phone] iSTAT pH 7.389 units Normal 7.350-7.450 iSTAT pCO2 59.8 MMHG High 35.0-45.0 iSTAT pO2 77.0 MMHG Low 80-105 iSTAT Tco2 38.0 mmol/L High 23.0-27.0 iSTAT Hco3 36.1 mmol/L High 22.0-26.0 iSTAT Base Excess 11.0 mmol/L High -2.0-3.0 iSTAT sO2 95 % Normal 95-98 A1c 12/31/2020 [facility] [employer] Faculty Member: [place] [address] [phone] Hba1c 8.5 % High <5.7 13 Est Avg Glucose 197 mg/dL High 60 - 110 Comprehensive Chem Profile 12/31/2020 [facility] [employer] Faculty Member: [place] [address] [phone] Glucose 202 mg/dL High 74 - 99 14 BUN 17 mg/dL 7 - 18 Creatinine 0.9 mg/dL 0.6 - 1.3 Sodium 142 mEq/L 136 - 145 Potassium 4.6 mEq/L 3.5 - 5.1 Chloride 102 mEq/L 98 - 107 Carbon Dioxide 35 mEq/L High 21 - 32 15 Calcium 9.2 mg/dL 8.5 - 10.1 Alk. Phosphatase 112 mg/dL 46 - 116 Total Bilirubin 0.3 mg/dL 0.2 - 1.0 Ast (Sgot) 12 U/L Low 15 - 37 Alt (SGPT) 21 U/L 12 - 78 Albumin 3.0 g/dL Low 3.4 - 5.0 Total Protein 6.5 g/dL 6.4 - 8.2 A/G Ratio 0.86 CALC Low 1.00 - 1.90 GFR >= 60 mL/min >60 GFR >= 60 mL/min >60 16 Complete Blood Count 12/31/2020 [facility] [employer] Faculty Member: [place] [address] [phone] WBC 18.3 x10*3/UL High 4.1 - 10.9 17 RBC 5.00 x10*6/UL 4.20 - 6.30 Hemoglobin 13.3 g/dL 12.0 - 18.0 Hematocrit 41.2 % 37.0 - 51.0 MCV 82.4 fL 80.0 - 97.0 MCH 26.6 pg 26.0 - 32.0 MCHC 32.2 g/dL 31.0 - 38.0 RDW 15.6 % High 11.6 - 13.7 PLT 519 x10*3/UL High 140 - 440 MPV 7.6 FL Low 7.8 - 11.0 Lymph % 8.7 % Low 10.0 - 58.5 Mid % 2.4 % 1.7 - 9.3 Neut % 88.9 % 37.0 - 92.0 Lymph # 1.6 x10*3/UL 0.6 - 4.1 Mid # 0.4 x10*3/UL 0.1 - 0.6 Neut # 16.3 x10*3/UL High 2.0 - 7.8 Arterial Blood Gas 11/20/2020 [facility] [address] [place] [address] [phone] ABG pH (Arterial) 7.459 units High 7.350-7.450 ABG Partial Pressure Co2 39.5 mmHg Normal 35.0-45.0 ABG Partial Pressure O2 100.7 mmHg High 75.0-100.0 ABG Total Co2 28.6 mEq/L Normal 23.0-31.0 ABG Hco3 27.4 mEq/L High 22.0-26.0 ABG Base Excess 3.4 High -2.0-2.0 ABG Standard Hco3 27.5 mEq/L High 22.0-26.0 ABG O2 Saturation 98.1 % Normal 95.0-99.0 Respiratory Panel 11/20/2020 [facility] [address] [place] [address] [phone] Respiratory Panel This respiratory <SEE NOTE> 18 CBC With Differential 11/20/2020 [facility] [address] [place] [address] [phone] White Blood Count 12.8 10 High 4.0-10.0 Red Blood Count 5.24 10 Normal 4.30-6.10 Hemoglobin 13.5 g/dL Normal 13.5-17.5 Hematocrit 44.2 % Normal 42.0-52.0 Mean Corpuscular Volume 84.4 fl Normal 80.0-96.0 Mean Corpuscular Hemoglobin 25.8 pg Low 27.0-33.0 Mean Corpuscular HGB Conc 30.5 g/dL Low 32.0-36.5 Red Cell Distribution Width 15.1 % High 11.5-14.5 Platelet Count, Automated 470 10 High 150-450 Neutrophils % 72.5 % High 36.0-66.0 Lymph % 13.9 % Low 24.0-44.0 Sac % 6.4 % Normal 2.0-8.0 Eos % 5.7 % High 0.0-3.0 Baso % 1.1 % High 0.0-1.0 Immature Granulocyte % 0.4 % Normal 0-3.0 Nucleated Red Blood Cell % 0.0 % Normal 0-0 Neutrophils # 9.3 10 High 1.5-8.5 Lymph # 1.8 10 Normal 1.5-5.0 Sac # 0.8 10 Normal 0.0-0.8 Eos # 0.7 10 High 0.0-0.5 Baso # 0.1 10 Normal 0.0-0.2 Cardiac Marker Panel 11/20/2020 [facility] enter [address] [place] [address] [phone] CPK Creatine Phosphokinase 118 U/L Normal 39-30 8 CK-MB Value Mass 3.5 NG/ML Normal <3.6 MB/CK Relative Index 2.97 Normal < Or =4 19 Troponin I < 0.02 NG/ML Normal < 0.10 20 Liver Profile 11/20/2020 [facility] [address] [place] [address] [phone] Ast/Sgot 22 U/L Normal 7-37 Alt/SGPT 25 U/L Normal 12-78 Alkaline Phosphatase 117 U/L Normal 45-117 Bilirubin,Total 0.4 mg/dL Normal 0.2-1.0 Bilirubin,Direct < 0.1 mg/dL Normal 0.0-0.2 Total Protein 7.2 GM/DL Normal 6.4-8.2 Albumin 3.0 GM/DL Low 3.2-5.2 Albumin/Globulin Ratio 0.7 Normal Basic Metabolic Profile 11/20/[address] [address] [phone] Glucose, Fasting 180 mg/dL High 70-100 Blood Urea Nitrogen 13 mg/dL Normal 7-18 Creatinine For GFR 0.80 mg/dL Normal 0.70-1.30 Glomerular Filtration Rate > 60.0 Normal >49 2 1 Sodium Level 136 mEq/L Normal 136-145 Potassium Serum 5.0 mEq/L Normal 3.5-5.1 Chloride Level 99 mEq/L Normal 98-107 Carbon Dioxide Level 34 mEq/L High 21-32 Anion Gap 3 mEq/L Low 8-16 Calcium Level 9.0 mg/dL Normal 8.8-10.2 Laboratory test finding 11/20/[address] [address] [phone] NT-Pro BNP 36 pg/mL Normal <125 1 Negative results do not prec lude influenza or RSV virus infection and should not be used as the sole basis for treatment or other patient management decisions. 2 Negative results do not prec lude influenza or RSV virus infection and should not be used as the sole basis for treatment or other patient management decisions. 3 Negative results do not prec lude influenza or RSV virus infection and should not be used as the sole basis for treatment or other patient management decisions. 4 A false negative result may occur if a specimen is improperly collected, transported or handled. False negative results may also occur if inadequate numbers of organisms are present in the specimen. As with any molecular test, mutations within the target regions of Xpert Xpress SARS-CoV-2 could affect primer and/or probe binding resulting in failure to detect the presence of virus. This test cannot rule out diseases caused by other bacterial or viral pathogens. DISCLAIMER: Testing was performed using the [employer] SARS-CoV-2 test. This test was developed and its performance characteristics determined by [employer]. This test has not been FDA cleared or approved. This test has been authorized by FDA under an Emergency Use Authorization (EUA). This test is only authorized for the duration of time the declaration that circumstances exist justifying the authorization of the emergency use of in vitro diagnostic tests for detection of SARS-CoV-2 virus and/or diagnosis of COVID-19 infection under section 564(b)(1) of the Act, 21 U.S.C. 360bbb-3(b)(1), unless the authorization is terminated or revoked sooner. 5 DIAGNOSIS CRITERIA MMB ng/ml Relative Index (RI) NON-AMI < or = 5 N/A TELLO ZONE > 5 < or = 4 AMI > 5 > 4 6 Troponin I Reference Interva l for [employer]ens [place] LOCI: 99th Percentile= 0.00-0.045 ng/ml Risk Stratification: <= 0.10 ng/ml Decreased Risk for Adverse Clinical Events. 0.10-1.50 ng/ml Increased Risk for Adv erse Clinical Events. Evaluation of additional criterion and/or repeat testing in 2-6 hours is suggested to rule out myocardial damage. >= 1.50 ng/ml Indicative of Myocardial Injury. 7 Units are mL/min/1.73 m2 Chronic Kidney Disease Staging per NKF: Stage I & II GFR >=60 Normal to Mildly Decreased Stage III GFR 30-59 Moderately Decreased Stage IV GFR 15-29 Severely Decreased Stage V GFR <15 Very Little GFR Left ESRD GFR <15 on REGISTERED PUBLIC HEALTH NURSE 8 This respiratory PCR panel d etects Influenza A H1, H3 and 2009 H1 viruses, Influenza B virus, Resp iratory Syncytial Virus, Human metapneumovirus, Parainfluenza virus 1, 2, 3 and 4, Adenovirus, Rhinovirus/Enterovirus, Coronavirus HKU1, NL63, OC43, 229E and SARS-CoV-2 (COVID 19), Bordetella pertussis, Bordetella parapertussis, Mycoplasma pneumoniae and Chlamydia pneumoniae. NEGATIVE by MULTIPLEXED NUCLEIC ACID PCR SARS-CoV-2 (COVID 19) NEGATIVE - SARS-CoV-2 (COVID19) 9 Units are mL/min/1.73 m2 Chronic Kidney Disease Staging per NKF: Stage I & II GFR >=60 Normal to Mildly Decreased Stage III GFR 30-59 Moderately Decreased Stage IV GFR 15-29 Severely Decreased Stage V GFR <15 Very Little GFR Left ESRD GFR <15 on REGISTERED PUBLIC HEALTH NURSE 10 Y/N query for Sepsis Lactate Rule: Y 11 DIAGNOSIS CRITERIA MMB ng/ml Relative Index (RI) NON-AMI < or = 5 N/A TELLO ZONE > 5 < or = 4 AMI > 5 > 4 12 Troponin I Reference Interva l for [place] LOCI: 99th Percentile= 0.00-0.045 ng/ml Risk Stratification: <= 0.10 ng/ml Decreased Risk for Adverse Clinical Events. 0.10-1.50 ng/ml Increased Risk for Adv erse Clinical Events. Evaluation of additional criterion and/or repeat testing in 2-6 hours is suggested to rule out myocardial damage. >= 1.50 ng/ml Indicative of Myocardial Injury. 13 Lab Result Notes: Pre-Diabetes 5.7 - 6.4 % Diabetes = or > 6.5% 14 100-125 mg/dL PRE-DIABET ES/FASTING >126 mg/dL DIABETES/FASTING 15 NOTE: RESULT VERIFIED. 16 CHRONIC KIDNEY DISEASE STAGI NG PER NKF STAGE I & II GFR >= 60 NORMAL TO MILDLY DECREASED STAGE III GFR 30-59 MODERATELY DECREASED STAGE IV GFR 15-29 SEVERELY DECREASED STAGE V GFR <15 VERY LITTLE GFR LEFT ESRD GFR <15 ON REGISTERED PUBLIC HEALTH NURSE 17 NOTE: RESULT VERIFIED. 18 This respiratory PCR panel d etects Influenza A H1, H3 and 2009 H1 viruses, Influenza B virus, Resp iratory Syncytial Virus, Human metapneumovirus, Parainfluenza virus 1, 2, 3 and 4, Adenovirus, Rhinovirus/Enterovirus, Coronavirus HKU1, NL63, OC43, 229E and SARS-CoV-2 (COVID 19), Bordetella pertussis, Bordetella parapertussis, Mycoplasma pneumoniae and Chlamydia pneumoniae. NEGATIVE by MULTIPLEXED NUCLEIC ACID PCR SARS-CoV-2 (COVID 19) NEGATIVE - SARS-CoV-2 (COVID19) 19 DIAGNOSIS CRITERIA MMB ng/ml Relative Index (RI) NON-AMI < or = 5 N/A TELLO ZONE > 5 < or = 4 AMI > 5 > 4 20 Troponin I Reference Interva l for [place] LOCI: 99th Percentile= 0.00-0.045 ng/ml Risk Stratification: <= 0.10 ng/ml Decreased Risk for Adverse Clinical Events. 0.10-1.50 ng/ml Increased Risk for Adv erse Clinical Events. Evaluation of additional criterion and/or repeat testing in 2-6 hours is suggested to rule out myocardial damage. >= 1.50 ng/ml Indicative of Myocardial Injury. 21 Units are mL/min/1.73 m2 Chronic Kidney Disease Staging per NKF: Stage I & II GFR >=60 Normal to Mildly Decreased Stage III GFR 30-59 Moderately Decreased Stage IV GFR 15-29 Severely Decreased Stage V GFR <15 Very Little GFR Left ESRD GFR <15 on REGISTERED PUBLIC HEALTH NURSE Procedures Date Code Description Status 03/10/2021 32096 Office/Outpatient Established Lo w MDM 20-29 Min Completed 01/22/2021 04965 Trans Care SRV W/I 14D Of DC, Co mm W/I 2 Dys Med Rec Completed 12/31/2020 64802 Office/Outpatient Established Mo d MDM 30-39 Min Completed 12/03/2020 01842 Trans Care SRV W/I 14D Of DC, Co mm W/I 2 Dys Med Rec Completed 02/28/2018 [id number] Colonoscopy Completed Medical Devices Description No Information Available Encounters Type Date Location Provider Dx Diagnosis [facility] Chronic obstructive pulmonary disease, u nspecified R09.02 Hypoxemia I50.32 Chronic diastolic (congestiv e) heart failure E11.40 Type 2 diabetes mellitus wit h diabetic neuropathy, unsp Z79.4 termination clerk (current) use of i nsulin R60.9 Edema, unspecified R26.89 Other abnormalities of gait and mobility Office Visit 01/22/[facility]21 [facility] J44.1 Chronic obstructive pulmonary disease w (acute) exacerbation R09.02 Hypoxemia R60.9 Edema, unspecified G47.33 Obstructive sleep apnea (edmond lt) (pediatric) E11.65 Type 2 diabetes mellitus wit h hyperglycemia E11.40 Type 2 diabetes mellitus wit h diabetic neuropathy, unsp Z79.4 termination clerk (current) use of i nsulin Z91.120 Pt intentl undrdose of meds regimen due to financl hardship F43.21 Adjustment disorder with dep ressed mood G47.00 Insomnia, unspecified R26.89 Other abnormalities of gait and mobility Office Visit 12/31/2020 [facility] J[facility]1 Chronic obstructive pulmonary disease w (acute) exacerbation R09.02 Hypoxemia R60.9 Edema, unspecified G47.33 Obstructive sleep apnea (edmond lt) (pediatric) E11.65 Type 2 diabetes mellitus wit h hyperglycemia E11.40 Type 2 diabetes mellitus wit h diabetic neuropathy, unsp Z79.4 group home (current) use of i nsulin F41.9 Anxiety disorder, unspecifie d G89.29 Other chronic pain J43.1 Panlobular emphysema E78.5 Hyperlipidemia, unspecified Office Visit 12/03/2020 [facility] J[facility]1 Chronic obstructive pulmonary disease w (acute) exacerbation R09.02 Hypoxemia R60.9 Edema, unspecified G47.33 Obstructive sleep apnea (edmond lt) (pediatric) E11.65 Type 2 diabetes mellitus wit h hyperglycemia E11.40 Type 2 diabetes mellitus wit h diabetic neuropathy, unsp F41.9 Anxiety disorder, unspecifie d G89.29 Other chronic pain Assessments Date Code Description Provider 04/30/2021 R60.9 Edema, unspecified Uli milton, DO 04/30/2021 I27.20 Pulmonary hypertension NOS Marcial Reaves, DO 04/30/2021 J96.11 Chronic respiratory failure with hypoxia Uli Reaves, DO 04/30/2021 I50.32 Chronic diastolic (congestive) h eart failure Uli Reaves, DO 04/30/2021 J44.9 Chronic obstructive pulmonary di sease, unspecified Hadleyaugustus Quevedog, DO 04/30/2021 E11.40 Type 2 diabetes sharda itus with diabetic neuropathy, unspecified Uli Reaves, DO 04/30/2021 E11.65 Type 2 diabetes mellitus with hy perglycemia Hadleyaugustus Max, DO 04/30/2021 D72.829 Leukocytosis, unspecified Hadley Rosariologg, DO 03/10/2021 J44.9 Chronic obstructive pulmonary di sease, unspecified Chas Louise M.D. 03/10/2021 R09.02 Hypoxemia Chas Louise M.D. 03/10/2021 I50.32 Chronic diastolic (congestive) h eart failure Chas Louise M.D. 03/10/2021 E11.40 Type 2 diabetes sharda itus with diabetic neuropathy, unspecified Chas Louise M.D. 03/10/2021 Z79.4 termination clerk (current) use of insul in Chas Louise M.D. 03/10/2021 R60.9 Edema, unspecified Chas hallman M.D. 03/10/2021 R26.89 Other abnormalities of gait and mobility Chas Louise M.D. 01/22/2021 J44.1 Chronic obstructive pulmonary disease with (acute) exacerbation Chas Louise M.D. 01/22/2021 R09.02 Hypoxemia Chas Louise M.D. 01/22/2021 R60.9 Edema, unspecified Chas hallman M.D. 01/22/2021 G47.33 Obstructive sleep apnea (adult) (pediatric) Chas Louise M.D. 01/22/2021 E11.65 Type 2 diabetes mellitus with hy perglycemia Chas Louise M.D. 01/22/2021 E11.40 Type 2 diabetes sharda itus with diabetic neuropathy, unspecified Chas Louise M.D. 01/22/2021 Z79.4 termination clerk (current) use of insul in Chas Louise M.D. 01/22/2021 Z91.120 Patient's intentiona l underdosing of medication regimen due to financial hardship Chas Louise M.D. 01/22/2021 F43.21 Adjustment disorder with depress ed mood Chas Loiuse M.D. 01/22/2021 G47.00 Insomnia, unspecified Chas bell M.D. 01/22/2021 R26.89 Other abnormalities of gait and mobility Chas Louise M.D. 12/31/2020 J44.1 Chronic obstructive pulmonary disease with (acute) exacerbation Chas Louise M.D. 12/31/2020 R09.02 Hypoxemia Chas Louise M.D. 12/31/2020 R60.9 Edema, unspecified Chas hallman M.D. 12/31/2020 G47.33 Obstructive sleep apnea (adult) (pediatric) Chas Louise M.D. 12/31/2020 E11.65 Type 2 diabetes mellitus with hy perglycemia Chas Louise M.D. 12/31/2020 E11.40 Type 2 diabetes sharda itus with diabetic neuropathy, unspecified Chas Louise M.D. 12/31/2020 Z79.4 termination clerk (current) use of insul in Chas Louise M.D. 12/31/2020 F41.9 Anxiety disorder, unspecified Tan Louise M.D. 12/31/2020 G89.29 Other chronic pain Chas hallman M.D. 12/31/2020 J43.1 Panlobular emphysema Chas simpson M.D. 12/31/2020 E78.5 Hyperlipidemia, unspecified Moises Louise M.D. 12/03/2020 J44.1 Chronic obstructive pulmonary disease with (acute) exacerbation Chas Louise M.D. 12/03/2020 R09.02 Hypoxemia Chas Louise M.D. 12/03/2020 R60.9 Edema, unspecified Chas hallman M.D. 12/03/2020 G47.33 Obstructive sleep apnea (adult) (pediatric) Chas Louise M.D. 12/03/2020 E11.65 Type 2 diabetes mellitus with hy perglycemia Chas Louise M.D. 12/03/2020 E11.40 Type 2 diabetes sharda itus with diabetic neuropathy, unspecified Chas Louise M.D. 12/03/2020 F41.9 Anxiety disorder, unspecified Tan Louise M.D. 12/03/2020 G89.29 Other chronic pain Chas hallman M.D. Plan of Treatment Future Appointment(s):* 05/02/2021 10:20 am - Lab Schedule at [facility] * 05/07/2021 8:40 am - Uli Reaves DO at [facility] * 05/16/2021 3:00 pm - Chas Louise M.D. at [facility] 12/03/2020 - Chas Louise M.D.* J44.1 Chronic obstructive pulmonary disease w (acute) exacerbation * R09.02 Hypoxemia * R60.9 Edema, unspecified * G47.33 Obstructive sleep apnea (adult) (pediatric) * E11.65 Type 2 diabetes mellitus with hyperglycemia * E11.40 Type 2 diabetes mellitus with diabetic neuropathy, unsp * F41.9 Anxiety disorder, unspecified * G89.29 Other chronic pain * * Comments:* 1. Chronic obstructive pulmonary disease w (acute) exacerbation: Improved since discharge from the hospital on current regimen. Respiratory panel was negative. Patient is following up with Pulmonary and will continue appropriate follow up.2. Hypoxemia: Stable. We will monitor.3. Edema: Improved. Patient is not interested in following up with Cardiology. I have reviewed his 2019 nuclear stress test which was unremarkable. He will continue to avoid salt in his diet. We will monitor.4. Obstructive sleep apnea (adult) (pediatric): Doing well, he is oxygen dependent. Patient is following up with Pulmonary and will continue appropriate follow up.5. Type 2 diabetes mellitus with hyperglycemia: Uncontrolled. Standard of care discussed and education was done. He should be very careful with hypoglycemic episode. He will continue to work to bring his HgbA1c to goal. Continue current regimen including Levemir insulin and glimepiride daily. We will monitor.6. Type 2 diabetes mellitus with diabetic neuropathy: He will use Percocet if necessary and uses Medical Marijuana at home. He will follow up with [facility] appropriately.7. Anxiety disorder: Doing well. Continue duloxetine.8. Other chronic pain: Atypical. Appears to be stable. He will continue working with [facility] and let me know if there is new issues or concerns that may be able to be treated.Ongoing cares: I am going to see him again as scheduled. If he has new problems or issues sooner he will let us know. Functional Status Description No Information Available Mental Status Description No Information Available Referrals Description No Information Available
--- OUTSIDE RECORDS SUMMARY | 2021-06-21 10:05 | CCD | Continuity of Care Document ---
Author Author Corey CHOU D.O. Organization Unknown Address [address] [place] [address] Phone [phone] Care Team Providers Care E Commerce Manager Name Role Phone Chas Louise M.D. AUTM [phone] AUTM Unavailable Corey Wilson M.D. AUTM [phone] Problems Active Problems Provider Date Essential hypertension [...] every 6 hours as needed 360units J44.9 Earlene Willoughby 01/28/2021 Epipen 2-Shashi 0.3mg/0 .3ML Solution Auto-Inject as directed Unknown Symbicort 160-4.5mcg/Act Aerosol 2 puff twice a day 10.200gm John VillalobosO Duloxetine HCL 30mg Caps DR Part 2 caps by mouth every morning, 1 cap every evening Unknown Atorvastatin Calcium 20mg Tablets 1 tab by mouth every day Unknown Tamsulosin HCL 0.4mg Capsules 2 cap by mouth every day Unknown Aspir-[address] 1 tab by mouth every day Unknown Ventolin HFA 108(90Base) mcg/Act A erosol 2 puffs qid/prn 18gm John VillalobosO CPAP Device 8cm lcw Unknown Metoprolol Succinate ER 25mg Tablets ER 24HR 1 tab by mouth twice daily Unknown 0 Oxygen Device 2L cont.-LC W () Unknown Levemir Flextouch 10 0Unit/ML Solution Pen-Inject 15 units SQ morning, 10 at night,using SS Unknown Ketoconazole 2% Cream as need ed Unknown Torsemide 20mg Tablets 40 in the am, 20 in the evening Unknown Medications Administered in Office Medication SIG Qnty Indications Ordering Provider Date Covid-19 vaccine, Unspecified Inj ection Unknown 10/09/2020 Covid-19 vaccine, Unspecified Inj ection Unknown 09/11/2020 Immunizations CPT Code Status Date Vaccine Lot # [id number] Given 05/20/2020 Flublock, Quadrivalent Vital Signs Date Vital Result Comment 05/07/2021 9:55am BP Systolic 104 mmHg BP Diastolic 70 mmHg Heart Rate 106 /min O2 % BldC Oximetry 94 % Height 70 inches 5'10" Weight 260.00 lb BMI (Body Mass Index) 37.3 kg/m2 [place] Body Weight 166 lb Weight 117.936 kg BSA (Body Surface Area) 2.33 m2 11/28/2020 10:31am BP Systolic 102 mmHg BP Diastolic 70 mmHg Heart Rate 87 /min O2 % BldC Oximetry 962 % Height 70 inches 5'10" Weight 248.00 lb per pt BMI (Body Mass Index) 35.6 kg/m2 [place] Body Weight 166 lb Weight 112.493 kg BSA (Body Surface Area) 2.29 m2 Results Test Acquired Date Facility Test Result H/L Range Note FVL/Antolin 11/28/2020 [facility] SEE IMAGE FVC-Pred 4.61 L FVC-Pre 0.82 L FVC-%Pred-Pre 17 L FVC-LLN 3.67 L Fev1-Pred 3.44 L Fev1-Pre 0.60 L Fev1-%Pred-Pre 17 L Fev1-LLN 2.65 L Fev6-Pred 4.37 L Fev6-Pre 0.82 L Fev6-%Pred-Pre 18 L Fev6-LLN 3.46 L Exh3yne-Lmvx 75 % Mcb4uev-Mkp 74 % Zis1dzx-%Pred-Pre 99 % Lyw3lar-YUJ 65 % Kzm3ybg-Icwo 95 % Nlc3rmi-Wwx 100 % Uuk0xkz-%Pred-Pre 105 % FEFMax-Pred 8.82 L/E/sec FEFMax-Pre 0.96 L/E/sec FEFMax-%Pred-Pre 10 L/E/sec FEFMax-LLN 6.50 L/E/sec Cyd0255-Nkol 2.72 L/E/sec Bhx1466-Kyg 0.49 L/E/sec Aeq7160-%Pred-Pre 18 L/E/sec Ulu4079-CKX 1.12 L/E/sec ExpTime-Pre 2.65 sec Ltm8ddt8-Bpbg 78 % Tbg1ubd5-Hfz 74 % Ycg5ygu1-%Pred-Pre 94 % Aay4tbs3-XRF 69 % Procedures Date Code Description Status 05/07/2021 02407 Office/Outpatient Established Mo d MDM 30-39 Min Completed 04/10/2021 55800 Office/Outpatient Established Lo w MDM 20-29 Min Completed 04/10/2021 95993 Spirometry Completed 11/28/2020 33848 Office/Outpatient Established Mo d MDM 30-39 Min Completed 11/28/2020 40523 Spirometry Completed Medical Devices Description No Information Available Encounters Type Date Location Provider Dx Diagnosis Office Visit 05/07/2021 10:00a [facility] Pulmonary/Thoracic Alejandro Chou D.O J43.1 Panlobular emphysema Z87.891 Personal history of nicotine dependence I50.20 Unspecified systolic (conges tive) heart failure R09.02 Hypoxemia Office Visit 11/28/2020 10:30a [facility] Pulmonary/Thoracic Alejandro Chou D.O I50.20 Unspecified systolic (conges tive) heart failure J43.1 Panlobular emphysema Z87.891 Personal history of nicotine dependence Assessments Date Code Description Provider 05/07/2021 J43.1 Panlobular emphysema Corey quiles D.O 05/07/2021 Z87.891 Personal history of nicotine dep endence Corey Chou D.O 05/07/2021 I50.20 Unspecified systolic (congestive ) heart failure Corey Chou D.O 05/07/2021 R09.02 Hypoxemia Corey Chou D.O 04/10/2021 J44.9 Chronic obstructive pulmonary di sease, unspecified Corey Chou D.O 04/10/2021 J43.1 Panlobular emphysema Corey quiles D.O 04/10/2021 Z87.891 Personal history of nicotine dep endence Corey Chou D.O 11/28/2020 I50.20 Unspecified systolic (congestive ) heart failure Corey Chou D.O 11/28/2020 J43.1 Panlobular emphysema Corey quiles D.O 11/28/2020 Z87.891 Personal history of nicotine dep endence Corey Chou D.O Plan of Treatment Future Appointment(s):* 11/06/2021 10:30 am - Corey Chou D.O at [facility] Pulmonary/Thoracic 05/07/2021 - Corey Chou D.O* J43.1 Panlobular emphysema * Z87.891 Personal history of nicotine dependence * I50.20 Unspecified systolic (congestive) heart failure * R09.02 Hypoxemia * * Comments:* ~ Having reviewed the history, physical, and diagnostic findings with the patient, I have recommended continuing his current inhaled medication regimen. I believe he is doing the best he can for his underlying obstructive lung disease. I have strongly encouraged him to continue regular follow-up with his primary care office regarding his fluid status. He is aware of a fluid intake restriction, but it is unclear that he is regularly following it. We will schedule a follow-up here for re-evaluation of his underlying obstructive lung disease in six months, with an updated spirometry and flow volume loop testing at that time. * Follow up:* Follow up in six months with spirometry/FVL. Functional Status Description No Information Available Mental Status Description No Information Available Referrals Description No Information Available
--- OUTSIDE RECORDS SUMMARY | 2021-06-21 10:06 | CCD | Continuity of Care Document ---
Author Author Corey REAVES DO Organization Unknown Address [address] [place] [address] Phone [phone] Care Team Providers Care Cell Manager Name Role Phone Chas Louise MD AUTM [phone] Corey Chou DO AUTM [phone] Justice Patton MD AUTM [phone] [facility] AUTM [phone] [facility] AUTM [phone] Problems Active Problems Provider Date Rosacea Chas [...] 30tabs Chas Louise M.D. 021 Freestyle Ines 2/[place]/Flash Glucose M onitoring System 2Reader Device as [...] day as needed Corey Chou DO Ipratropium [place]/Albuterol Sulfate 0.5-2.5(3)mg/3ML Solution 1 vial tid as [...] Vaccine Lot # U-Flu Given 04/10/2020 Influenza,Unspecified [id number] Given 04/26/2018 Influenza Virus Vaccine, Quadrivalent ([id number]), Derived From Cell [id number] Vital Signs Date Vital Result Comment 04/30/2021 [...] Note Influenza A/B RSV Covid Amp 03/03/[address] [phone] Influenza A Amplification NEGATIVE Normal Negati ve 1 Influenza B Amplification NEGATIVE Normal Negative 2 RSV Amplification NEGATIVE Normal Negative 3 Sars Covid-19 Amplification NEGATIVE Normal Negative 4 CBC With Differential 03/03/[address] [phone] White Blood Count 14.9 10 High 4.0-10.0 [...] 36.0-66.0 Lymph % 9.5 % Low 24.0-44.0 [place] % 6.7 % Normal 2.0-8.0 Eos % 2.3 % Normal 0.0-3.0 Baso % 0.6 % Normal 0.0-1.0 Immature Granulocyte % 0.7 % Normal 0-3.0 Nucleated Red Blood Cell % 0.0 % Normal 0-0 Neutrophils # 11.9 10 High 1.5-8.5 Lymph # 1.4 10 Low 1.5-5.0 [place] # 1.0 10 High 0.0-0.8 Eos # 0.4 10 Normal 0.0-0.5 Baso # 0.1 10 Normal 0.0-0.2 Cardiac Marker Panel 03/03/2021 [facility] enter [address] [place], [place] [id number] [phone] CPK Creatine Phosphokinase 74 U/L Normal 39-30 8 CK-MB Value Mass 2.2 NG/ML Normal <3.6 MB/CK Relative Index 2.97 Normal < Or =4 5 Troponin I < 0.02 NG/ML Normal < 0.10 6 Liver Profile 03/03/2021 [facility] nter [address] [place] [address] [phone] Ast/Sgot 13 U/L Normal 7-37 Alt/SGPT 23 U/L Normal 12-78 Alkaline Phosphatase 101 U/L Normal 45-117 Bilirubin,Total 0.4 mg/dL Normal 0.2-1.0 Bilirubin,Direct 0.1 mg/dL Normal 0.0-0.2 Total Protein 7.0 GM/DL Normal 6.4-8.2 Albumin 3.3 GM/DL Normal 3.2-5.2 Albumin/Globulin Ratio 0.9 Normal Basic Metabolic Profile 03/03/[address] [address] [phone] Glucose, Fasting 195 mg/dL High 70-100 Blood [...] mg/dL Low 8.8-10.2 Laboratory test finding 03/03/[address] [address] [phone] NT-Pro BNP 25 pg/mL Normal <125 Thyroxine (T4) 6.9 g/dL Normal 4.5-12.0 Thyroid Stimulating Hormone 1.610 uIU/ML Normal 0.358-3.740 Venous Blood Gas 03/03/2021 [facility] [employer] nter [address] [place] [phone] Venous PH 7.358 units Normal 7.330-7.430 Venous Partial Pressure Co2 60.4 mmHg High 38.0-50.0 Venous Partial Pressure O2 34.9 mmHg Normal 30.0-50.0 Venous Total Co2 35.1 mEq/L High 24.0-28.0 Venous Hco3 33.2 mEq/L High 23.0-27.0 Venous Base Excess 5.9 High -2.0-2.0 Venous Standard Hco3 28.9 mEq/L Normal Venous O2 Saturation 61.4 % Normal 60.0-80.0 Respiratory Panel 02/16/2021 [facility] nter [address] [place] [address] [phone] Respiratory Panel This respiratory <SEE NOTE> 8 Laboratory test finding 02/16/[address] [address] [phone] NT-Pro BNP 27 pg/mL Normal <125 Thyroxine (T4) 6.6 g/dL Normal 4.5-12.0 Thyroid Stimulating Hormone 1.250 uIU/ML Normal 0.358-3.740 Basic Metabolic Profile 02/16/[address] [address] [phone] Glucose, Fasting 181 mg/dL High 70-100 Blood [...] 9.2 mg/dL Normal 8.8-10.2 Liver Profile 02/16/2021 [facility] nter [address] [place] [address] [phone] Ast/Sgot 11 U/L Normal 7-37 Alt/SGPT 26 U/L Normal 12-78 Alkaline Phosphatase 112 U/L Normal 45-117 Bilirubin,Total 0.5 mg/dL Normal 0.2-1.0 Bilirubin,Direct 0.2 mg/dL Normal 0.0-0.2 Total Protein 7.4 GM/DL Normal 6.4-8.2 Albumin 3.6 GM/DL Normal 3.2-5.2 Albumin/Globulin Ratio 0.9 Normal Laboratory test finding 02/16/[address] [address] [phone] Lactic Acid Sepsis Protocol 1.5 mmol/L Normal 0.4- 2.0 10 CBC With Differential 02/16/[address] [address] [phone] White Blood Count 14.4 10 High 4.0-10.0 [...] 36.0-66.0 Lymph % 10.8 % Low 24.0-44.0 [place] % 5.7 % Normal 2.0-8.0 Eos % 3.3 % High 0.0-3.0 Baso % 0.9 % Normal 0.0-1.0 Immature Granulocyte % 0.4 % Normal 0-3.0 Nucleated Red Blood Cell % 0.0 % Normal 0-0 Neutrophils # 11.4 10 High 1.5-8.5 Lymph # 1.6 10 Normal 1.5-5.0 [place] # 0.8 10 Normal 0.0-0.8 Eos # 0.5 10 Normal 0.0-0.5 Baso # 0.1 10 Normal 0.0-0.2 Venous Blood Gas 02/16/2021 [facility] nter [address] [place], [place] [phone] Venous PH 7.391 units Normal 7.330-7.430 Venous Partial Pressure Co2 51.4 mmHg High 38.0-50.0 Venous Partial Pressure O2 51.8 mmHg High 30.0-50.0 Venous Total Co2 32.1 mEq/L High 24.0-28.0 Venous Hco3 30.5 mEq/L High 23.0-27.0 Venous Base Excess 4.3 High -2.0-2.0 Venous Standard Hco3 28.0 mEq/L Normal Venous O2 Saturation 86.8 % High 60.0-80.0 Cardiac Marker Panel 02/16/2021 [facility] enter [address] [place], [place] [phone] CPK Creatine Phosphokinase 51 U/L Normal 39-30 8 CK-MB Value Mass 1.7 NG/ML Normal <3.6 MB/CK Relative Index 3.33 Normal < Or =4 11 Troponin I < 0.02 NG/ML Normal < 0.10 12 Istat ABG 01/26/2021 [facility] nter [address] [place], [place] [phone] iSTAT pH 7.364 units Normal 7.350-7.450 iSTAT pCO2 56.8 MMHG High 35.0-45.0 iSTAT pO2 77.0 MMHG Low 80-105 iSTAT Tco2 34.0 mmol/L High 23.0-27.0 iSTAT Hco3 32.4 mmol/L High 22.0-26.0 iSTAT Base Excess 7.0 mmol/L High -2.0-3.0 iSTAT sO2 94 % Low 95-98 Laboratory test finding 01/26/2021 [facility] [address] [place] [address] [phone] iSTAT Troponin 0.00 NG/ML Normal 0.00-0.08 Istat ABG 01/11/2021 [facility] nter [address] [place] [address] [phone] iSTAT pH 7.389 units Normal 7.350-7.450 iSTAT pCO2 59.8 MMHG High 35.0-45.0 iSTAT pO2 77.0 MMHG Low 80-105 iSTAT Tco2 38.0 mmol/L High 23.0-27.0 iSTAT Hco3 36.1 mmol/L High 22.0-26.0 iSTAT Base Excess 11.0 mmol/L High -2.0-3.0 iSTAT sO2 95 % Normal 95-98 A1c 12/31/2020 [facility] [employer] Operator Apprentice: [place] [address] [phone] Hba1c 8.5 % High <5.7 13 Est Avg Glucose 197 mg/dL High 60 - 110 Comprehensive Chem Profile 12/31/2020 [facility] [employer] Operator Apprentice: [place] [address] [phone] Glucose 202 mg/dL High 74 - 99 [...] mL/min >60 16 Complete Blood Count 12/31/2020 [facility] [employer] Operator Apprentice: [place] [address] [phone] WBC 18.3 x10*3/UL High 4.1 - 10.9 [...] 2.0 - 7.8 Arterial Blood Gas 11/20/2020 [facility] nter [address] [place] [address] [phone] ABG pH (Arterial) 7.459 units High 7.350-7.450 ABG Partial Pressure Co2 39.5 mmHg Normal 35.0-45.0 ABG Partial Pressure O2 100.7 mmHg High 75.0-100.0 ABG Total Co2 28.6 mEq/L Normal 23.0-31.0 ABG Hco3 27.4 mEq/L High 22.0-26.0 ABG Base Excess 3.4 High -2.0-2.0 ABG Standard Hco3 27.5 mEq/L High 22.0-26.0 ABG O2 Saturation 98.1 % Normal 95.0-99.0 Respiratory Panel 11/20/2020 [facility] nter [address] [place] [address] [phone] Respiratory Panel This respiratory <SEE NOTE> 18 CBC With Differential 11/20/2020 [facility] [address] [place] [address] [phone] White Blood Count 12.8 10 High 4.0-10.0 [...] 36.0-66.0 Lymph % 13.9 % Low 24.0-44.0 [place] % 6.4 % Normal 2.0-8.0 Eos % 5.7 % High 0.0-3.0 Baso % 1.1 % High 0.0-1.0 Immature Granulocyte % 0.4 % Normal 0-3.0 Nucleated Red Blood Cell % 0.0 % Normal 0-0 Neutrophils # 9.3 10 High 1.5-8.5 Lymph # 1.8 10 Normal 1.5-5.0 [place] # 0.8 10 Normal 0.0-0.8 Eos # 0.7 10 High 0.0-0.5 Baso # 0.1 10 Normal 0.0-0.2 Cardiac Marker Panel 11/20/2020 [facility] enter [address] [place] [address] [phone] CPK Creatine Phosphokinase 118 U/L Normal 39-30 8 CK-MB Value Mass 3.5 NG/ML Normal <3.6 MB/CK Relative Index 2.97 Normal < Or =4 19 Troponin I < 0.02 NG/ML Normal < 0.10 20 Liver Profile 11/20/2020 [facility] nter [address] [place] [address] [phone] Ast/Sgot 22 U/L Normal 7-37 Alt/SGPT 25 U/L Normal 12-78 Alkaline Phosphatase 117 U/L Normal 45-117 Bilirubin,Total 0.4 mg/dL Normal 0.2-1.0 Bilirubin,Direct < 0.1 mg/dL Normal 0.0-0.2 Total Protein 7.2 GM/DL Normal 6.4-8.2 Albumin 3.0 GM/DL Low 3.2-5.2 Albumin/Globulin Ratio 0.7 Normal Basic Metabolic Profile 11/20/[address] [address] [phone] Glucose, Fasting 180 mg/dL High 70-100 Blood [...] mg/dL Normal 8.8-10.2 Laboratory test finding 11/20/[address] [address] [phone] NT-Pro BNP 36 pg/mL Normal <125 1 [...] pathogens. DISCLAIMER: Testing was performed using the [facility] SARS-CoV-2 test. This test was developed and its performance characteristics determined by [facility]. This test has not been FDA cleared [...] Troponin I Reference Interva l for [employer] [place] LOCI: 99th Percentile= 0.00-0.045 ng/ml Risk Stratification: [...] Little GFR Left ESRD GFR <15 on NICKEL OPERATOR 8 This respiratory PCR panel d etects [...] Little GFR Left ESRD GFR <15 on NICKEL OPERATOR 10 Y/N query for Sepsis Lactate Rule: Y 11 DIAGNOSIS CRITERIA MMB ng/ml Relative Index (RI) NON-AMI < or = 5 N/A TELLO ZONE > 5 < or = 4 AMI > 5 > 4 12 Troponin I Reference Interva l for [employer] LOCI: 99th Percentile= 0.00-0.045 ng/ml Risk Stratification: [...] LITTLE GFR LEFT ESRD GFR <15 ON NICKEL OPERATOR 17 NOTE: RESULT VERIFIED. 18 This respiratory [...] 20 Troponin I Reference Interva l for [employer] LOCI: 99th Percentile= 0.00-0.045 ng/ml Risk Stratification: [...] Little GFR Left ESRD GFR <15 on NICKEL OPERATOR Procedures Date Code Description Status 03/10/2021 65989 Office/Outpatient Established Lo w MDM 20-29 Min Completed 01/22/2021 57243 Trans Care SRV W/I 14D Of DC, Co mm W/I 2 Dys Med Rec Completed 12/31/2020 44240 Office/Outpatient Established Mo d MDM 30-39 Min Completed 12/03/2020 42215 Trans Care SRV W/I 14D Of DC, Co mm W/I 2 Dys Med Rec Completed 02/28/2018 [id number] Colonoscopy Completed Medical Devices Description No Information Available Encounters Type Date Location Provider Dx Diagnosis [facility] Visit [facility]9 Chronic obstructive pulmonary disease, u nspecified R09.02 Hypoxemia I50.32 Chronic diastolic (congestiv e) heart failure E11.40 Type 2 diabetes mellitus wit h diabetic neuropathy, unsp Z79.4 terminal clerk (current) use of i nsulin R60.9 Edema, unspecified R26.89 Other abnormalities of gait and mobility Office Visit 01/22/2021 11:[facility]a [facility] J44.1 Chronic obstructive pulmonary disease w (acute) exacerbation R09.02 Hypoxemia R60.9 Edema, unspecified G47.33 Obstructive sleep apnea (edmond lt) (pediatric) E11.65 Type 2 diabetes mellitus wit h hyperglycemia E11.40 Type 2 diabetes mellitus wit h diabetic neuropathy, unsp Z79.4 terminal clerk (current) use of i nsulin Z91.120 Pt intentl undrdose of meds regimen due to financl hardship F43.21 Adjustment disorder with dep ressed mood G47.00 Insomnia, unspecified R26.89 Other abnormalities of gait and mobility Office Visit 12/31/2020 10[facility]a [facility] J[facility]1 Chronic obstructive pulmonary disease w (acute) exacerbation R09.02 Hypoxemia R60.9 Edema, unspecified G47.33 Obstructive sleep apnea (edmond lt) (pediatric) E11.65 Type 2 diabetes mellitus wit h hyperglycemia E11.40 Type 2 diabetes mellitus wit h diabetic neuropathy, unsp Z79.4 custodial (current) use of i nsulin F41.9 Anxiety disorder, unspecifie d G89.29 Other chronic pain J43.1 Panlobular emphysema E78.5 Hyperlipidemia, unspecified Office Visit 12/03/2020 9[facility]a [facility] J[facility]1 Chronic obstructive pulmonary disease [...] neuropathy, unspecified Chas Louise M.D. 03/10/2021 Z79.4 terminal clerk (current) use of insul in Chas [...] neuropathy, unspecified Chas Louise M.D. 01/22/2021 Z79.4 terminal clerk (current) use of insul in Chas Louise M.D. 01/22/2021 Z91.120 Patient's intentiona l underdosing of medication regimen due to financial hardship Chas Louise M.D. 01/22/2021 F43.21 Adjustment disorder with depress ed mood Cahs Louise M.D. 01/22/2021 G47.00 Insomnia, unspecified Chas bell [...] neuropathy, unspecified Chas Louise M.D. 12/31/2020 Z79.4 terminal clerk (current) use of insul in Chas [...] 05/02/2021 10:20 am - Lab Schedule at [facility] * 05/07/2021 8:40 am - Uli Reaves DO at [facility] * 05/16/2021 3:00 pm - [facility]as [facility] 12/03/2020 - Chas Louise M.D.* J44.1 [...] at home. He will follow up with [facility] appropriately.7. Anxiety disorder: Doing well. Continue duloxetine.8. Other chronic pain: Atypical. Appears to be stable. He will continue working with [facility] and let me know if there [...]
--- OUTSIDE RECORDS SUMMARY | 2021-06-21 10:06 | CCD | Continuity of Care Document ---
Author Organization Unknown Address Unknown Phone Unavailable Care Team Providers Care Protective Services Officer Name Role Phone Uli Arango NP AUTM Arcadio Walls MD AUTM [phone] Chas Louise MD AUTM [phone] Corey Chou DO AUTM [phone] Justice Patton MD AUTM [phone] Problems Active Problems Provider Date Benign hypertensive heart disease without congestive h eart failure Nini Dick, [facility] Onset: 06/16/2011 Dyspnea Arcadio Walls MD Onset: 05/04/2019 Electrocardiogram abnormal Arcadio Walls MD Onset: 2018 Chronic obstructive lung disease Arcadio Walls MD Onset: 05/04/2019 Coronary arteriosclerosis Arcadio Walls MD Onset: 019 Dietary management surveillance Arcdaio Walls MD Onset: 1 Edema Arcadio Walls MD Onset: 05/04/2019 Heart murmur Arcadio Walls MD Onset: 05/04/2019 Obstructive sleep apnea syndrome Arcadio Walls MD Onset: 05/04/2019 Body mass index 30+ - obesity Arcadio Walls MD Onset: Obesity [facility] Cleaning Onset: 04/21/2021 Chronic diastolic heart failure [facility] Cleaning Onset : 04/21/2021 Aortic valve disorder CLAU Antoine Onset: 07/14/2019 Social History Type Date Description Comments Sex Unknown ETOH Use Has consumed alcohol in the past Tobacco Use Start: Unknown End: Unknown Patient is a former smoker Stopped over 18 years ago Recreational Drug Use Regularly uses Marijuana Smoking Status Reviewed: 04/21/21 Patient is a former smoker St opped over 18 years ago Exercise Type/Frequency Restricted: ambu latory, work of a light or sedentary nature Exercise Limitations Shortness Of Breath Exercise Limitations Other Neuropathy Allergies and adverse reactions Active Allergies Criticality Reaction | Severity Comments Date Bee Sting Unable to assess criticality anaphylaxis 05/19/2011 Ibuprofen Unable to assess criticality face swelling | Moderate 04/30/2021 Penicillin Unable to assess criticality anaphylaxis 05/19/2011 Codeine Unable to assess criticality severe itchi ng 05/19/2011 Advil Unable to assess criticality facial swell ing 05/04/2019 Primidone Unable to assess criticality severe itchi ng, changes taste of foods 04/20/2021 Medications Active Medications SIG Qnty Indications Ordering Provide r Date Oxygen - Home 2 lpm via nc all the time Corey Chou DO 04/20/2021 Epipen 2-Shashi 0.3mg/0 .3ML Solution Auto-Inject inject for allergic reactions as directed Chas Louise MD 04/20/2021 Trazodone HCL 50mg Tablets 1 by mouth every night at bedtime Chas Louise MD 04/20/20 Glimepiride 2mg Tablets 1 by mouth twice every day Chas Louise MD 04/20/2021 Metoprolol Tartrate 25mg Tablets 1 by mouth twice a day Chas Louise MD 04/20/2021 Torsemide 20mg Tablets 2 by mouth every morning and 1 by mouth every evening I11.9 Jin Hills MD 04/20/2021 Duloxetine HCL 30[address] C[address] DR Part 2 by mouth every morning and 1 by mouth every evening Chas Louise MD 04/20/2021 Tamsulosin HCL 0.4mg Capsules 2 by mouth every day Chas Louise MD 04/20/2021 Atorvastatin Calcium 10mg Tablets 1 by mouth every night at bedtime Chas Louise MD Levemir Flextouch 10 0Unit/ML Solution Pen-Inject inject as directed Chas Louise MD 04/20 Ipratropium [place]/Albuterol Sulfate 0.5-2.5(3)mg/3ML Solution 1 nebulizer treatment 4 times a day (wit h each meal and bedtime). Unknown 05/03/2019 Symbicort 160-4.5mcg/Act Aerosol 2 puff twice a day Unknown 05/03/2019 Ketoconazole 2% Cream apply to affected areas twice daily x3 weeks Unknown 05/03 Aspir-[address] 1 po daily 90tabs Chase Lemos MD 05/19/2011 Ventolin 90mcg/Act Aerosol Four Times Daily as needed for Sob/Wheezing Unknown Insulin Lispro (1 Unit Dial) 100Unit/ML Solution Pen-Inject Per Sliding Scale Unknown Levalbuterol HCL 1.25mg/3ML Nebuli zer Every 4 Hours as needed for Sob/Wheezing Unknown Immunizations Description No Information Available Vital Signs Date Vital Result Comment 04/21/2021 1:43pm Home Weight 255lb Height 70 inches 5'10" Heart Rate 91 /min BP Systolic Sitting 112 mmHg Ra, large cuff BP Diastolic Sitting 72 mmHg Ra, large cuff 07/14/2019 8:58am Weight 268.00 lb Home Weight 265lb Height 70 inches 5'10" BMI (Body Mass Index) 38.4 kg/m2 Heart Rate 66 /min BP Systolic Sitting 122 mmHg large cuff, Ra BP Diastolic Sitting 72 mmHg large cuff, Ra Results Test Acquired Date Facility Test Result H/L Range Note Calcium SerPl-sCnc 04/25/2021 N2N/Direct CCD Impor t Calcium SerPl-sCnc 9.1 8.8-10.2 NT-proBNP SerPl-mCnc 04/25/2021 N2N/Direct CCD Impo rt NT-proBNP SerPl-mCnc 30 <125 Hgb Bld-mCnc 04/25/2021 N2N/Direct CCD Impor t Hgb Bld-mCnc 12.4 13.5-17.5 Hct VFr Bld Auto 04/25/2021 N2N/Direct CCD Impor t Hct VFr Bld Auto 40.6 42.0-52.0 MCV RBC Auto 04/25/2021 N2N/Direct CCD Impor t MCV RBC Auto 84.2 80.0-96.0 MCH RBC Qn Auto 04/25/2021 N2N/Direct CCD Impor t MCH RBC Qn Auto 25.7 27.0-33.0 Automated erythrocyte mean corpuscular hemoglobin 04/25/2021 N2N/Direct CCD Import Automated erythrocyte mean corpuscular h emoglobin concentration measurement (mass/volume) 30.5 32.0-36.5 Automated erythrocyte distribution width ratio 04/25/2021 N2N/Direct CCD Import Automated erythrocyte distribution width ratio 15.3 11.5-14.5 Platelet # Bld Auto 04/25/2021 N2N/Direct CCD Impor t Platelet # Bld Auto 435 150-450 nRBC/100 WBC Bld Auto-Rto 04/25/2021 N2N/Direct CCD Import nRBC/100 WBC Bld Auto-Rto 0.0 0-0 BUN SerPl-mCnc 04/25/2021 N2N/Direct CCD Impor t BUN SerPl-mCnc 16 7-18 Serum or plasma creatinine measurement (mass/volum N2N/Direct CCD Import Serum or plasma creatinine measurement (mass/volume) 0.97 0.70-1.30 GFR/Bsa.pred SerPl MDRD-ArVRat 04/25/2021 N2N/Direc t CCD Import GFR/Bsa.pred SerPl MDRD-ArVRat > 60.0 >49 Sodium SerPl-sCnc 04/25/2021 N2N/Direct CCD Impor t Sodium SerPl-sCnc 140 136-145 Potassium SerPl-sCnc 04/25/2021 N2N/Direct CCD Impo rt Potassium SerPl-sCnc 4.2 3.5-5.1 Chloride SerPl-sCnc 04/25/2021 N2N/Direct CCD Impor t Chloride SerPl-sCnc 100 98-107 Co2 SerPl-sCnc 04/25/2021 N2N/Direct CCD Impor t Co2 SerPl-sCnc 34 21-32 Anion Gap3 SerPl-sCnc 04/25/2021 N2N/Direct CCD Imp ort Anion Gap3 SerPl-sCnc 6 8-16 Serum or plasma glucose measurement (mass/volume) 04/25/2021 N2N/Direct CCD Import Serum or plasma glucose measurement (mass/volume) 272 70-100 Laboratory test finding 03/28/2021 [facility] - not interf aced (315)- - Magnesium Level 2.0 1.8-2.4 Magnesium SerPl-mCnc 03/28/2021 N2N/Direct CCD Impo rt Magnesium SerPl-mCnc 2.0 1.8-2.4 Glucose BldC Glucomtr-mCnc 03/28/2021 N2N/Direct CC D Import Glucose BldC Glucomtr-nc 278 80-115 BMP 03/28/2021 [facility] - not interfaced (315)- - Calcium Ser/Plasma Mass/Vol 8.6 Sodium 140 Carbon Dioxide Ser/Plasm 40 Chloride Serum/Plasma 99 Potassium 3.6 Glucose 200 High 83-110 Blood Urea Nitrogen 19 High 7-18 Creatinine 0.84 0.6-1.0 G F R >60.0 CBC without Differential 03/27/2021 [facility] - not inter faced (315)- - White Blood Count 9.8 5.0-10.0 Red Blood Count 4.64 4.00-5.40 Platelets 314 172-450 Hemoglobin 12.4 Hematocrit 40.6 Blood neutrophils automated count (number/volume) 03/27/2021 N2N/Direct CCD Import Blood neutrophils automated count (number/volume) 73.0 36.0-66.0 Lymphocytes/leuk NFr Bld Auto 03/27/2021 N2N/Direct CCD Import Lymphocytes/leuk NFr Bld Auto 12.9 24.0-44.0 Monocytes/leuk NFr Bld Auto 03/27/2021 N2N/Direct C CD Import Monocytes/leuk NFr Bld Auto 8.7 2.0-8.0 Eosinophil/leuk NFr Bld Auto 03/27/2021 N2N/Direct CCD Import Eosinophil/leuk NFr Bld Auto 3.9 0.0-3.0 Basophils/leuk NFr Bld Auto 03/27/2021 N2N/Direct C CD Import Basophils/leuk NFr Bld Auto 0.9 0.0-1.0 Imm Granulocytes/leuk NFr Bld Auto 03/27/2021 N2N/D irect CCD Import Imm Granulocytes/leuk NFr Bld Auto 0.6 0-3.0 Neutrophils # Bld Auto 03/27/2021 N2N/Direct CCD Im port Neutrophils # Bld Auto 7.2 1.5-8.5 Lymphocytes # Bld Auto 03/27/2021 N2N/Direct CCD Im port Lymphocytes # Bld Auto 1.3 1.5-5.0 Monocytes # Bld Auto 03/27/2021 N2N/Direct CCD Impo rt Monocytes # Bld Auto 0.9 0.0-0.8 Eosinophil # Bld Auto 03/27/2021 N2N/Direct CCD Imp ort Eosinophil # Bld Auto 0.4 0.0-0.5 Basophils # Bld Auto 03/27/2021 N2N/Direct CCD Impo rt Basophils # Bld Auto 0.1 0.0-0.2 Laboratory test finding 03/27/2021 [facility] - not interf aced (315)- - Magnesium Level 2.0 1.8-2.4 BMP 03/27/2021 [facility] - not interfaced (315)- - Calcium Ser/Plasma Mass/Vol 9.2 Sodium 139 Carbon Dioxide Ser/Plasm 41 Chloride Serum/Plasma 96 Potassium 3.1 Glucose 234 High 83-110 Blood Urea Nitrogen 21 High 7-18 Creatinine 1.00 0.6-1.0 G F R >60.0 CBC without Differential 03/26/2021 [facility] - not inter faced (315)- - White Blood Count 13.0 High 5.0-10.0 Red Blood Count 4.20 4.00-5.40 Platelets 299 172-450 Hemoglobin 11.2 Hematocrit 36.7 BMP 03/26/2021 [facility] - not interfaced (315)- - Calcium Ser/Plasma Mass/Vol 8.2 Sodium 140 Carbon Dioxide Ser/Plasm 38 Chloride Serum/Plasma 100 Potassium 3.8 Glucose 184 High 83-110 Blood Urea Nitrogen 25 High 7-18 Creatinine 1.03 High 0.6-1.0 G F R >60.0 Laboratory test finding 03/26/2021 [facility] - not interf aced (315)- - Magnesium Level 2.0 1.8-2.4 Ast SerPl-cCnc 03/25/2021 N2N/Direct CCD Impor t Ast SerPl-cCnc 9 7-37 Alt SerPl-cCnc 03/25/2021 N2N/Direct CCD Impor t Alt SerPl-cCnc 19 12-78 Alp SerPl-cCnc 03/25/2021 N2N/Direct CCD Impor t Alp SerPl-cCnc 90 45-117 Bilirub SerPl-mCnc 03/25/2021 N2N/Direct CCD Impor t Bilirub SerPl-mCnc 0.5 0.2-1.0 Prot SerPl-mCnc 03/25/2021 N2N/Direct CCD Impor t Prot SerPl-mCnc 6.5 6.4-8.2 Albumin SerPl-mCnc 03/25/2021 N2N/Direct CCD Impor t Albumin SerPl-mCnc 2.6 3.2-5.2 Aso Ab SerPl-aCnc 03/25/2021 N2N/Direct CCD Impor t Aso Ab SerPl-aCnc 50.0 <214.0 Serum or plasma thyrotropin measurement by detecti N2N/Direct CCD Import Serum or plasma thyrotropin measurement by detection limit <= 0.005 miu/l (units/volume) 0.307 0.358-3.740 SCCmec + mecA+mecC pnl Nose 03/25/2021 N2N/Direct C CD Import SCCmec + mecA+mecC pnl Nose Not Detected Negative Laboratory test finding 03/25/2021 [facility] - not interf aced (315)- - Thyroid Stimulating Hormone 0.307 CMP 03/25/2021 [facility] - not interfaced (315)- - Albumin Serum/Plasma 2.6 Alt - SGPT 19 Calcium Ser/Plasma Mass/Vol 8.6 Carbon Dioxide Ser/Plasm 34 Chloride Serum/Plasma 100 Alkaline Phosphatase 90 Potassium 4.7 Protein Total 6.5 Sodium 137 Ast - Sgot 9 BUN - Urea Nitrogen 17 Glucose 284 High 83-110 Creatinine For GFR 0.85 CBC without Differential 03/25/2021 [facility] - not inter faced (315)- - White Blood Count 12.6 High 5.0-10.0 Red Blood Count 4.33 4.00-5.40 Platelets 288 172-450 Hemoglobin 11.5 Hematocrit 36.8 Lab Results 03/25/2021 N2N/Direct CCD Impor t Albumin/Globulin Ratio 0.7 CK MB CFr.DF SerPl Calc 03/24/2021 N2N/Direct CCD I mport CK MB CFr.DF SerPl Calc 2.64 < Or =4 CBC without Differential 03/24/2021 [facility] - not inter faced (315)- - White Blood Count 13.4 High 5.0-10.0 Red Blood Count 4.50 4.00-5.40 Platelets 294 172-450 Hemoglobin 12.1 Hematocrit 38.6 CK SerPl-cCnc 03/24/2021 N2N/Direct CCD Impor t CK SerPl-cCnc 53 39-308 Serum or plasma creatine kinase MB measurement (ma N2N/Direct CCD Import Serum or plasma creatine kinase MB measurement (mass/volume) 1.4 <3.6 Troponin I SerPl-mCnc 03/24/2021 N2N/Direct CCD Imp ort Troponin I SerPl-mCnc < 0.02 < 0.10 CRP SerPl hs-mCnc 03/24/2021 N2N/Direct CCD Impor t CRP SerPl hs-mCnc 5.46 0.00-0.30 Procalcitonin SerPl-mCnc 03/24/2021 N2N/Direct CCD Import Procalcitonin SerPl-mCnc <0.05 Bacterial blood culture 03/24/2021 N2N/Direct CCD I mport Bacterial blood culture No Growth After 5 Days Bilirub Direct SerPl-mCnc 03/03/2021 N2N/Direct CCD Import Bilirub Direct SerPl-mCnc 0.1 0.0-0.2 T4 SerPl-mCnc 03/03/2021 N2N/Direct CCD Impor t T4 SerPl-mCnc 6.9 4.5-12.0 pH BldV 03/03/2021 N2N/Direct CCD Impor t pH BldV 7.358 7.330-7.430 pCO2 BldV 03/03/2021 N2N/Direct CCD Impor t pCO2 BldV 60.4 38.0-50.0 pO2 BldV 03/03/2021 N2N/Direct CCD Impor t pO2 BldV 34.9 30.0-50.0 Co2 BldV Calc-sCnc 03/03/2021 N2N/Direct CCD Impor t Co2 BldV Calc-sCnc 35.1 24.0-28.0 Hco3 BldV-sCnc 03/03/2021 N2N/Direct CCD Impor t Hco3 BldV-sCnc 33.2 23.0-27.0 Hco3 std BldV-sCnc 03/03/2021 N2N/Direct CCD Impor t Hco3 std BldV-sCnc 28.9 SaO2 % BldV 03/03/2021 N2N/Direct CCD Impor t SaO2 % BldV 61.4 60.0-80.0 Nasopharyngeal specimen influenza virus A Rna dete N2N/Direct CCD Import Nasopharyngeal specimen influenza virus A Rna detection by probe and target amplification method Negative Negative Nasopharyngeal specimen influenza virus B Rna dete 1 N2N/Direct CCD Import Nasopharyngeal specimen influenza virus B Rna detection by probe and target amplification method Negative Negative Nasopharyngeal specimen respiratory syncytial viru 1 N2N/Direct CCD Import Nasopharyngeal specimen respiratory sync ytial virus (RSV) Rna detection by probe and target amplification method Negative Negative Sars coronavirus 2 Rna [Presence] in Respiratory s 1 N2N/Direct CCD Import Sars coronavirus 2 Rna [Presence] in Res piratory specimen by [place] with probe detection Negative Negative Base excess BldV Calc-sCnc 03/03/2021 N2N/Direct CC D Import Base excess BldV Calc-sCnc 5.9 -2.0-2.0 CBC without Differential 02/19/2021 [facility] - not inter faced (315)- - White Blood Count 15.6 High 5.0-10.0 Red Blood Count 4.70 4.00-5.40 Platelets 353 172-450 Hemoglobin 12.4 Hematocrit 39.8 BMP 02/19/2021 [facility] - not interfaced (315)- - Calcium Ser/Plasma Mass/Vol 9.0 Sodium 141 Carbon Dioxide Ser/Plasm 43 Chloride Serum/Plasma 95 Potassium 2.9 Glucose 83 83-110 Blood Urea Nitrogen 22 High 7-18 Creatinine 0.87 0.6-1.0 G F R >60.0 Lab Results 02/16/2021 N2N/Direct CCD Impor t Lactic Acid Level 1.5 0.4-2.0 Laboratory test finding 02/16/2021 [facility] - not interf aced (315)- - Thyroid Stimulating Hormone 1.250 CMP 02/16/2021 [facility] - not interfaced (315)- - Albumin Serum/Plasma 3.6 Alt - SGPT 26 Calcium Ser/Plasma Mass/Vol 9.2 Carbon Dioxide Ser/Plasm 31 Chloride Serum/Plasma 100 Alkaline Phosphatase 112 Potassium 4.3 Protein Total 7.4 Sodium 137 Ast - Sgot 11 BUN - Urea Nitrogen 18 Glucose 181 High 83-110 Creatinine For GFR 0.89 CBC without Differential 02/16/2021 [facility] - not inter faced (315)- - White Blood Count 14.4 High 5.0-10.0 Red Blood Count 5.40 4.00-5.40 Platelets 331 172-450 Hemoglobin 14.0 Hematocrit 46.2 Est. average glucose Bld gHb Est-mCnc 01/27/2021 N2 N/Direct CCD Import Est. average glucose Bld gHb Est-nc 200 60- 110 HbA1c MFr Bld 01/27/2021 N2N/Direct CCD Impor t HbA1c MFr Bld 8.6 Troponin I Bld-mCnc 01/26/2021 N2N/Direct CCD Impor t Troponin I Bld-[facility] 0.00 0.00-0.08 pH BldA 01/26/2021 N2N/Direct CCD Impor t pH BldA 7.364 7.350-7.450 Hco3 BldA-sCnc 01/26/2021 N2N/Direct CCD Impor t Hco3 BldA-sCnc 32.4 22.0-26.0 pCO2 BldA 01/26/2021 N2N/Direct CCD Impor t pCO2 BldA 56.8 35.0-45.0 pO2 BldA 01/26/2021 N2N/Direct CCD Impor t pO2 BldA 77.0 80-105 Lab Results 01/26/2021 N2N/Direct CCD Impor t Poc Total Co2 (Misc Panel) 34.0 23.0-27.0 Base excess std BldA Calc-sCnc 01/26/2021 N2N/Direc t CCD Import Base excess std BldA Calc-sCnc 7.0 -2.0-3.0 SaO2 % BldA from pO2 01/26/2021 N2N/Direct CCD Impo rt SaO2 % BldA from pO2 94 95-98 SaO2 % BldA 01/11/2021 N2N/Direct CCD Impor t SaO2 % BldA 97.6 95.0-99.0 Hco3 std BldA-sCnc 01/11/2021 N2N/Direct CCD Impor t Hco3 std BldA-sCnc 26.4 22.0-26.0 Base excess BldA Calc-sCnc 01/11/2021 N2N/Direct CC D Import Base excess BldA Calc-sCnc 2.2 -2.0-2.0 Hco3 BldA-sCnc 01/11/2021 N2N/Direct CCD Impor t Hco3 BldA-sCnc 29.9 22.0-26.0 Co2 BldA Calc-sCnc 01/11/2021 N2N/Direct CCD Impor t Co2 BldA Calc-sCnc 31.7 23.0-31.0 pO2 BldA 01/11/2021 N2N/Direct CCD Impor t pO2 BldA 101.6 75.0-100.0 pCO2 BldA 01/11/2021 N2N/Direct CCD Impor t pCO2 BldA 60.4 35.0-45.0 pH BldA 01/11/2021 N2N/Direct CCD Impor t pH BldA 7.312 7.350-7.450 T4 Free SerPl-mCnc 01/11/2021 N2N/Direct CCD Impor t T4 Free SerPl-mCnc 0.84 0.76-1.46 A niger IgE Qn 11/21/2020 N2N/Direct CCD Impor t A niger IgE Qn <0.10 Class 0 A fumigatus IgE Qn 11/21/2020 N2N/Direct CCD Impor t A fumigatus IgE Qn <0.10 Class 0 Procedures Date Code Description Status 04/21/2021 43380 Office/Outpatient Established Mo d MDM 30-39 Min Completed 04/21/2021 89923 ECG 12-Lead Completed Medical Devices Description No Information Available Encounters Type Date Location Provider Dx Diagnosis Office Visit 04/21/2021 1:30p Main Office [facility] Cleaning I50 .32 Chronic diastolic (congestive) heart failure R07.9 Chest pain, unspecified I11.0 Hypertensive heart disease w ith heart failure I35.0 Nonrheumatic aortic (valve) stenosis G47.33 Obstructive sleep apnea (edmond lt) (pediatric) J44.9 Chronic obstructive pulmonar y disease, unspecified R94.31 Abnormal electrocardiogram [ ECG] [EKG] E66.8 Other obesity Z71.3 Dietary counseling and surve illance Assessments Date Code Description Provider 04/21/2021 I50.32 Chronic diastolic (congestive) h eart failure CLAU Cleaning 04/21/2021 R07.9 Chest pain, unspecified CLAU [place] 04/21/2021 I11.0 Hypertensive heart disease with heart failure CLAU Cleaning 04/21/2021 I35.0 Nonrheumatic aortic (valve) sten osis [facility] Cleaning 04/21/2021 G47.33 Obstructive sleep apnea (adult) (pediatric) CLAU Cleaning 04/21/2021 J44.9 Chronic obstructive pulmonary di sease, unspecified [facility]U Cleaning 04/21/2021 R94.31 Abnormal electrocardiogram [ECG] [EKG] [facility] Cleaning 04/21/2021 E66.8 Other obesity CLAU Flores Cha, se 04/21/2021 Z71.3 Dietary counseling and surveilla nce [facility] Cleaning Plan of Treatment Future Appointment(s):* 05/26/2021 12:45 pm - [facility] Cleaning at Main Office 04/21/2021 - [facility] Cleaning* I50.32 Chronic diastolic (congestive) heart failure* New Labs:* BMP, Ordered: 04/21/21 * NT Probnp QN Ser/Plas, Ordered: 04/21/21 * Recommendations:* Please obtain lab work Adhere strictly to torsemide therapy, advised patient as time goes on he may develop edema that is refractory to oral medication and he may end up in the hospital again, I am trying my best to avoid that Encouraged compliance with sodium and fluid restriction Please alert our office with a weight gain of more than 3 pounds, onset of worsening shortness of breath, or worsening lower extremity edema * R07.9 Chest pain, unspecified* Recommendations:* Patient agreeable to seek contact the office with any worsening chest pain * I11.0 Hypertensive heart disease with heart failure* Recommendations:* Continue torsemide and metoprolol at the current dosages Advised patient to monitor blood pressures at home and to alert our office with readings >140/>90 * I35.0 Nonrheumatic aortic (valve) stenosis* Recommendations:* Plan for repeat echocardiogram in 2022 * G47.33 Obstructive sleep apnea (adult) (pediatric)* Recommendations:* Reinforced the consistent use of therapy will assist in blood pressure reduction and promote nocturnal blood pressure dipping patterns. Negative effects of hypoxia during sleep were reviewed including impaired daytime cognition and level of alertness. * J44.9 Chronic obstructive pulmonary disease, unspecified* Recommendations:* Continue per Dr. Chou * R94.31 Abnormal electrocardiogram [ECG] [EKG]* Recommendations:* No further evaluation is needed at this time. * E66.8 Other obesity * Z71.3 Dietary counseling and surveillance* Recommendations:* Recommended for patient to follow a more whole food diet. Advised patient to avoid overly processed foods and packaged foods. Advised patient to avoid sodas, juices and other liquid calories. Recommended at least 30 minutes of exercise 3 days a week. * All * Follow up:* CHF check in 1 month Functional Status Functional Condition Comment Date Status Independent with all ADL's Activ e Dependent with ambulating uses wheelchair for mobility Active Independent with dressing Active Independent with bathing Active Independent with feeding Active Independent with grooming Active Dependent with standing Active Independent with toileting Activ e Mental Status Description No Information Available Referrals Description No Information Available
--- OUTSIDE RECORDS SUMMARY | 2021-06-21 10:06 | CCD | Continuity of Care Document ---
Author Organization Unknown Address Unknown Phone Unavailable Care Team Providers Care Cloth Printing Inspector Name Role Phone Uli Arango NP AUTM Arcadio Walls MD AUTM [phone] Chas Louise MD AUTM [phone] Corey Chou DO AUTM [phone] Justice Patton MD AUTM [phone] Problems Active Problems Provider Date Benign hypertensive heart disease without congestive h eart failure Nini Dick, [facility] Onset: 06/16/2011 Dyspnea Arcadio Walls MD Onset: 05/04/2019 Electrocardiogram abnormal Arcadio Walls MD Onset: 2018 Chronic obstructive lung disease Arcadio Walls MD Onset: 05/04/2019 Coronary arteriosclerosis Arcadio Walls MD Onset: 019 Dietary management surveillance Arcadio Walls MD Onset: 1 Edema Arcadio Walls [...] as directed Chas Louise MD 04/20 Ipratropium [place]/Albuterol Sulfate 0.5-2.5(3)mg/3ML Solution 1 nebulizer treatment 4 [...] Glucose BldC Glucomtr-nc 278 80-115 BMP 03/28/2021 [facility] - not interfaced (315)- - Calcium Ser/Plasma Mass/Vol 8.6 Sodium 140 Carbon Dioxide Ser/Plasm 40 Chloride Serum/Plasma 99 Potassium 3.6 Glucose 200 High 83-110 Blood Urea Nitrogen 19 High 7-18 Creatinine 0.84 0.6-1.0 G F R >60.0 CBC without Differential 03/27/2021 [facility] - not inter faced (315)- - White [...] Auto 0.1 0.0-0.2 Laboratory test finding 03/27/2021 [facility] - not interf aced (315)- - Magnesium Level 2.0 1.8-2.4 BMP 03/27/2021 [facility] - not interfaced (315)- - Calcium Ser/Plasma Mass/Vol 9.2 Sodium 139 Carbon Dioxide Ser/Plasm 41 Chloride Serum/Plasma 96 Potassium 3.1 Glucose 234 High 83-110 Blood Urea Nitrogen 21 High 7-18 Creatinine 1.00 0.6-1.0 G F R >60.0 CBC without Differential 03/26/2021 [facility] - not inter faced (315)- - White Blood Count 13.0 High 5.0-10.0 Red Blood Count 4.20 4.00-5.40 Platelets 299 172-450 Hemoglobin 11.2 Hematocrit 36.7 BMP 03/26/2021 [facility] - not interfaced (315)- - Calcium Ser/Plasma Mass/Vol 8.2 Sodium 140 Carbon Dioxide Ser/Plasm 38 Chloride Serum/Plasma 100 Potassium 3.8 Glucose 184 High 83-110 Blood Urea Nitrogen 25 High 7-18 Creatinine 1.03 High 0.6-1.0 G F R >60.0 Laboratory test finding 03/26/2021 [facility] - not interf aced (315)- - Magnesium [...] Not Detected Negative Laboratory test finding 03/25/2021 [facility] - not interf aced (315)- - Thyroid [...] For GFR 0.85 CBC without Differential 03/25/2021 [facility] - not inter faced (315)- - White [...] Calc-sCnc 5.9 -2.0-2.0 CBC without Differential 02/19/2021 [facility] - not inter faced (315)- - White Blood Count 15.6 High 5.0-10.0 Red Blood Count 4.70 4.00-5.40 Platelets 353 172-450 Hemoglobin 12.4 Hematocrit 39.8 BMP 02/19/2021 [facility] - not interfaced (315)- - Calcium Ser/Plasma Mass/Vol 9.0 Sodium 141 Carbon Dioxide Ser/Plasm 43 Chloride Serum/Plasma 95 Potassium 2.9 Glucose 83 83-110 Blood Urea Nitrogen 22 High 7-18 Creatinine 0.87 0.6-1.0 G F R >60.0 Lab Results 02/16/2021 N2N/Direct CCD Impor t Lactic Acid Level 1.5 0.4-2.0 Laboratory test finding 02/16/2021 [facility] - not interf aced (315)- - Thyroid Stimulating Hormone 1.250 CMP 02/16/2021 [facility] - not interfaced (315)- - Albumin Serum/Plasma 3.6 Alt - SGPT 26 Calcium Ser/Plasma Mass/Vol 9.2 Carbon Dioxide Ser/Plasm 31 Chloride Serum/Plasma 100 Alkaline Phosphatase 112 Potassium 4.3 Protein Total 7.4 Sodium 137 Ast - Sgot 11 BUN - Urea Nitrogen 18 Glucose 181 High 83-110 Creatinine For GFR 0.89 CBC without Differential 02/16/2021 [facility] - not inter faced (315)- - White [...] 01/26/2021 N2N/Direct CCD Impor t Troponin I Bld-[facility] 0.00 0.00-0.08 pH BldA 01/26/2021 N2N/Direct CCD [...] 0 Procedures Date Code Description Status 04/21/2021 26065 Office/Outpatient Established Mo d MDM 30-39 Min Completed 04/21/2021 81800 ECG 12-Lead Completed Medical Devices Description No [...]
--- OUTSIDE RECORDS SUMMARY | 2021-06-21 10:06 | CCD | Continuity of Care Document ---
Author Organization Unknown Address Unknown Phone Unavailable Care Team Providers Care Flavorer Name Role Phone Uli Arango NP AUTM Arcadio Walls MD AUTM [phone] Chas Louise MD AUTM [phone] Corey Chou DO AUTM [phone] Justice Patton MD AUTM [phone] Problems Active Problems Provider Date Benign hypertensive heart disease without congestive h eart failure Nini Dick, [facility] Onset: 06/16/2011 Dyspnea Arcadio Walls MD [...] as directed Chas Louise MD 04/20 Ipratropium [place]/Albuterol Sulfate 0.5-2.5(3)mg/3ML Solution 1 nebulizer treatment 4 [...] Glucose BldC Glucomtr-nc 278 80-115 BMP 03/28/2021 [facility] - not interfaced (315)- - Calcium Ser/Plasma Mass/Vol 8.6 Sodium 140 Carbon Dioxide Ser/Plasm 40 Chloride Serum/Plasma 99 Potassium 3.6 Glucose 200 High 83-110 Blood Urea Nitrogen 19 High 7-18 Creatinine 0.84 0.6-1.0 G F R >60.0 CBC without Differential 03/27/2021 [facility] - not inter faced (315)- - White [...] Auto 0.1 0.0-0.2 Laboratory test finding 03/27/2021 [facility] - not interf aced (315)- - Magnesium Level 2.0 1.8-2.4 BMP 03/27/2021 [facility] - not interfaced (315)- - Calcium Ser/Plasma Mass/Vol 9.2 Sodium 139 Carbon Dioxide Ser/Plasm 41 Chloride Serum/Plasma 96 Potassium 3.1 Glucose 234 High 83-110 Blood Urea Nitrogen 21 High 7-18 Creatinine 1.00 0.6-1.0 G F R >60.0 CBC without Differential 03/26/2021 [facility] - not inter faced (315)- - White Blood Count 13.0 High 5.0-10.0 Red Blood Count 4.20 4.00-5.40 Platelets 299 172-450 Hemoglobin 11.2 Hematocrit 36.7 BMP 03/26/2021 [facility] - not interfaced (315)- - Calcium Ser/Plasma Mass/Vol 8.2 Sodium 140 Carbon Dioxide Ser/Plasm 38 Chloride Serum/Plasma 100 Potassium 3.8 Glucose 184 High 83-110 Blood Urea Nitrogen 25 High 7-18 Creatinine 1.03 High 0.6-1.0 G F R >60.0 Laboratory test finding 03/26/2021 [facility] - not interf aced (315)- - Magnesium [...] Not Detected Negative Laboratory test finding 03/25/2021 [facility] - not interf aced (315)- - Thyroid [...] For GFR 0.85 CBC without Differential 03/25/2021 [facility] - not inter faced (315)- - White [...] Calc-sCnc 5.9 -2.0-2.0 CBC without Differential 02/19/2021 [facility] - not inter faced (315)- - White Blood Count 15.6 High 5.0-10.0 Red Blood Count 4.70 4.00-5.40 Platelets 353 172-450 Hemoglobin 12.4 Hematocrit 39.8 BMP 02/19/2021 [facility] - not interfaced (315)- - Calcium Ser/Plasma Mass/Vol 9.0 Sodium 141 Carbon Dioxide Ser/Plasm 43 Chloride Serum/Plasma 95 Potassium 2.9 Glucose 83 83-110 Blood Urea Nitrogen 22 High 7-18 Creatinine 0.87 0.6-1.0 G F R >60.0 Lab Results 02/16/2021 N2N/Direct CCD Impor t Lactic Acid Level 1.5 0.4-2.0 Laboratory test finding 02/16/2021 [facility] - not interf aced (315)- - Thyroid Stimulating Hormone 1.250 CMP 02/16/2021 [facility] - not interfaced (315)- - Albumin Serum/Plasma 3.6 Alt - SGPT 26 Calcium Ser/Plasma Mass/Vol 9.2 Carbon Dioxide Ser/Plasm 31 Chloride Serum/Plasma 100 Alkaline Phosphatase 112 Potassium 4.3 Protein Total 7.4 Sodium 137 Ast - Sgot 11 BUN - Urea Nitrogen 18 Glucose 181 High 83-110 Creatinine For GFR 0.89 CBC without Differential 02/16/2021 [facility] - not inter faced (315)- - White [...] 01/26/2021 N2N/Direct CCD Impor t Troponin I Bld-[facility] 0.00 0.00-0.08 pH BldA 01/26/2021 N2N/Direct CCD [...] 0 Procedures Date Code Description Status 04/21/2021 87661 Office/Outpatient Established Mo d MDM 30-39 Min Completed 04/21/2021 06621 ECG 12-Lead Completed Medical Devices Description No [...]
--- OUTSIDE RECORDS SUMMARY | 2021-06-21 10:06 | CCD | Continuity of Care Document ---
Author Organization Unknown Address Unknown Phone Unavailable Care Team Providers Care Explosives Truck Driver Name Role Phone Uli Arango NP AUTM Arcadio Walls MD AUTM [phone] Chas Louise MD AUTM [phone] Corey Chou DO AUTM [phone] Justice Patton MD AUTM [phone] Problems Active Problems Provider Date Benign hypertensive heart disease without congestive h eart failure Nini Dick, [facility] Onset: 06/16/2011 Dyspnea Arcadio Walls MD [...] as directed Chas Louise MD 04/20 Ipratropium [place]/Albuterol Sulfate 0.5-2.5(3)mg/3ML Solution 1 nebulizer treatment 4 [...] Glucose BldC Glucomtr-nc 278 80-115 BMP 03/28/2021 [facility] - not interfaced (315)- - Calcium Ser/Plasma Mass/Vol 8.6 Sodium 140 Carbon Dioxide Ser/Plasm 40 Chloride Serum/Plasma 99 Potassium 3.6 Glucose 200 High 83-110 Blood Urea Nitrogen 19 High 7-18 Creatinine 0.84 0.6-1.0 G F R >60.0 CBC without Differential 03/27/2021 [facility] - not inter faced (315)- - White [...] Auto 0.1 0.0-0.2 Laboratory test finding 03/27/2021 [facility] - not interf aced (315)- - Magnesium Level 2.0 1.8-2.4 BMP 03/27/2021 [facility] - not interfaced (315)- - Calcium Ser/Plasma Mass/Vol 9.2 Sodium 139 Carbon Dioxide Ser/Plasm 41 Chloride Serum/Plasma 96 Potassium 3.1 Glucose 234 High 83-110 Blood Urea Nitrogen 21 High 7-18 Creatinine 1.00 0.6-1.0 G F R >60.0 CBC without Differential 03/26/2021 [facility] - not inter faced (315)- - White Blood Count 13.0 High 5.0-10.0 Red Blood Count 4.20 4.00-5.40 Platelets 299 172-450 Hemoglobin 11.2 Hematocrit 36.7 BMP 03/26/2021 [facility] - not interfaced (315)- - Calcium Ser/Plasma Mass/Vol 8.2 Sodium 140 Carbon Dioxide Ser/Plasm 38 Chloride Serum/Plasma 100 Potassium 3.8 Glucose 184 High 83-110 Blood Urea Nitrogen 25 High 7-18 Creatinine 1.03 High 0.6-1.0 G F R >60.0 Laboratory test finding 03/26/2021 [facility] - not interf aced (315)- - Magnesium [...] Not Detected Negative Laboratory test finding 03/25/2021 [facility] - not interf aced (315)- - Thyroid [...] For GFR 0.85 CBC without Differential 03/25/2021 [facility] - not inter faced (315)- - White [...] Calc-sCnc 5.9 -2.0-2.0 CBC without Differential 02/19/2021 [facility] - not inter faced (315)- - White Blood Count 15.6 High 5.0-10.0 Red Blood Count 4.70 4.00-5.40 Platelets 353 172-450 Hemoglobin 12.4 Hematocrit 39.8 BMP 02/19/2021 [facility] - not interfaced (315)- - Calcium Ser/Plasma Mass/Vol 9.0 Sodium 141 Carbon Dioxide Ser/Plasm 43 Chloride Serum/Plasma 95 Potassium 2.9 Glucose 83 83-110 Blood Urea Nitrogen 22 High 7-18 Creatinine 0.87 0.6-1.0 G F R >60.0 Lab Results 02/16/2021 N2N/Direct CCD Impor t Lactic Acid Level 1.5 0.4-2.0 Laboratory test finding 02/16/2021 [facility] - not interf aced (315)- - Thyroid Stimulating Hormone 1.250 CMP 02/16/2021 [facility] - not interfaced (315)- - Albumin Serum/Plasma 3.6 Alt - SGPT 26 Calcium Ser/Plasma Mass/Vol 9.2 Carbon Dioxide Ser/Plasm 31 Chloride Serum/Plasma 100 Alkaline Phosphatase 112 Potassium 4.3 Protein Total 7.4 Sodium 137 Ast - Sgot 11 BUN - Urea Nitrogen 18 Glucose 181 High 83-110 Creatinine For GFR 0.89 CBC without Differential 02/16/2021 [facility] - not inter faced (315)- - White [...] 01/26/2021 N2N/Direct CCD Impor t Troponin I Bld-[facility] 0.00 0.00-0.08 pH BldA 01/26/2021 N2N/Direct [...] 0 Procedures Date Code Description Status 04/21/2021 85289 Office/Outpatient Established Mo d MDM 30-39 Min Completed 04/21/2021 48377 ECG 12-Lead Completed Medical Devices Description No [...]
--- OUTSIDE RECORDS SUMMARY | 2021-06-21 10:06 | CCD ---
Continuity of Care Document (CCD) Created on: 04/30/2021 Corey Jang External Reference #: [id number] : [id number] Sex: Male Author Organization Unknown Address Unknown Phone Unavailable Care Team Providers Care Code Inspector Name Role Phone Uli Arango NP AUTM Arcadio Walls MD AUTM [phone] Chas Louise MD AUTM [phone] Corey Chou DO AUTM [phone] Justice Patton MD AUTM [phone] Problems Active Problems Provider Date Benign hypertensive heart disease without congestive h eart failure Nini Dick, [facility] Onset: 06/16/2011 Dyspnea Arcadio Walls MD Onset: 05/04/2019 Electrocardiogram abnormal Arcadio Walls MD Onset: 2018 Chronic obstructive lung disease Arcadio Walls MD Onset: 05/04/2019 Coronary arteriosclerosis Arcadio Walls MD Onset: 019 Dietary management surveillance Arcadio Walls MD Onset: 1 Edema Arcadio aWlls MD Onset: 05/04/2019 Heart murmur Arcadio Walls [...] as directed Chas Louise MD 04/20 Ipratropium [place]/Albuterol Sulfate 0.5-2.5(3)mg/3ML Solution 1 nebulizer treatment 4 [...] Glucose BldC Glucomtr-nc 278 80-115 BMP 03/28/2021 [facility] - not interfaced (315)- - Calcium Ser/Plasma Mass/Vol 8.6 Sodium 140 Carbon Dioxide Ser/Plasm 40 Chloride Serum/Plasma 99 Potassium 3.6 Glucose 200 High 83-110 Blood Urea Nitrogen 19 High 7-18 Creatinine 0.84 0.6-1.0 G F R >60.0 CBC without Differential 03/27/2021 [facility] - not inter faced (315)- - White [...] Auto 0.1 0.0-0.2 Laboratory test finding 03/27/2021 [facility] - not interf aced (315)- - Magnesium Level 2.0 1.8-2.4 BMP 03/27/2021 [facility] - not interfaced (315)- - Calcium Ser/Plasma Mass/Vol 9.2 Sodium 139 Carbon Dioxide Ser/Plasm 41 Chloride Serum/Plasma 96 Potassium 3.1 Glucose 234 High 83-110 Blood Urea Nitrogen 21 High 7-18 Creatinine 1.00 0.6-1.0 G F R >60.0 CBC without Differential 03/26/2021 [facility] - not inter faced (315)- - White Blood Count 13.0 High 5.0-10.0 Red Blood Count 4.20 4.00-5.40 Platelets 299 172-450 Hemoglobin 11.2 Hematocrit 36.7 BMP 03/26/2021 [facility] - not interfaced (315)- - Calcium Ser/Plasma Mass/Vol 8.2 Sodium 140 Carbon Dioxide Ser/Plasm 38 Chloride Serum/Plasma 100 Potassium 3.8 Glucose 184 High 83-110 Blood Urea Nitrogen 25 High 7-18 Creatinine 1.03 High 0.6-1.0 G F R >60.0 Laboratory test finding 03/26/2021 [facility] - not interf aced (315)- - Magnesium [...] Not Detected Negative Laboratory test finding 03/25/2021 [facility] - not interf aced (315)- - Thyroid [...] For GFR 0.85 CBC without Differential 03/25/2021 [facility] - not inter faced (315)- - White [...] Calc-sCnc 5.9 -2.0-2.0 CBC without Differential 02/19/2021 [facility] - not inter faced (315)- - White Blood Count 15.6 High 5.0-10.0 Red Blood Count 4.70 4.00-5.40 Platelets 353 172-450 Hemoglobin 12.4 Hematocrit 39.8 BMP 02/19/2021 [facility] - not interfaced (315)- - Calcium Ser/Plasma Mass/Vol 9.0 Sodium 141 Carbon Dioxide Ser/Plasm 43 Chloride Serum/Plasma 95 Potassium 2.9 Glucose 83 83-110 Blood Urea Nitrogen 22 High 7-18 Creatinine 0.87 0.6-1.0 G F R >60.0 Lab Results 02/16/2021 N2N/Direct CCD Impor t Lactic Acid Level 1.5 0.4-2.0 Laboratory test finding 02/16/2021 [facility] - not interf aced (315)- - Thyroid Stimulating Hormone 1.250 CMP 02/16/2021 [facility] - not interfaced (315)- - Albumin Serum/Plasma 3.6 Alt - SGPT 26 Calcium Ser/Plasma Mass/Vol 9.2 Carbon Dioxide Ser/Plasm 31 Chloride Serum/Plasma 100 Alkaline Phosphatase 112 Potassium 4.3 Protein Total 7.4 Sodium 137 Ast - Sgot 11 BUN - Urea Nitrogen 18 Glucose 181 High 83-110 Creatinine For GFR 0.89 CBC without Differential 02/16/2021 [facility] - not inter faced (315)- - White [...] 01/26/2021 N2N/Direct CCD Impor t Troponin I Bld-[facility] 0.00 0.00-0.08 pH BldA 01/26/2021 N2N/Direct [...] 0 Procedures Date Code Description Status 04/21/2021 05405 Office/Outpatient Established Mo d MDM 30-39 Min Completed 04/21/2021 33333 ECG 12-Lead Completed Medical Devices Description No [...]
--- OUTSIDE RECORDS SUMMARY | 2021-06-21 10:06 | CCD | Continuity of Care Document ---
Author Author Corey REAVES DO Organization Unknown Address [address] [place] [address] Phone [phone] Care Team Providers Care Sterile Process Coordinator Name Role Phone Chas Louise MD AUTM [phone] Corey Chou DO AUTM [phone] Justice Patton MD AUTM [phone] [facility] AUTM [phone] [facility] AUTM [phone] Problems Active Problems Provider Date Rosacea Chas [...] 30tabs Chas Louise M.D. 021 Freestyle Ines 2/[place]/Flash Glucose M onitoring System 2Reader Device as [...] test twice a day e11.65 200units Chas Lousie M.D. 07/29/19 19 Onetouch Ultra Blue Strips [...] day as needed Corey Chou DO Ipratropium [place]/Albuterol Sulfate 0.5-2.5(3)mg/3ML Solution 1 vial tid as [...] Vaccine Lot # U-Flu Given 04/10/2020 Influenza,Unspecified [id number] Given 04/26/2018 Influenza Virus Vaccine, Quadrivalent ([id number]), Derived From Cell [id number] Vital Signs Date Vital Result Comment 04/30/2021 [...] Note Influenza A/B RSV Covid Amp 03/03/[address] [id number] [phone] Influenza A Amplification NEGATIVE Normal Negati ve 1 Influenza B Amplification NEGATIVE Normal Negative 2 RSV Amplification NEGATIVE Normal Negative 3 Sars Covid-19 Amplification NEGATIVE Normal Negative 4 CBC With Differential 03/03/[address] [id number] [phone] White Blood Count 14.9 10 High 4.0-10.0 [...] 36.0-66.0 Lymph % 9.5 % Low 24.0-44.0 [place] % 6.7 % Normal 2.0-8.0 Eos % 2.3 % Normal 0.0-3.0 Baso % 0.6 % Normal 0.0-1.0 Immature Granulocyte % 0.7 % Normal 0-3.0 Nucleated Red Blood Cell % 0.0 % Normal 0-0 Neutrophils # 11.9 10 High 1.5-8.5 Lymph # 1.4 10 Low 1.5-5.0 [place]ble # 1.0 10 High 0.0-0.8 Eos # 0.4 10 Normal 0.0-0.5 Baso # 0.1 10 Normal 0.0-0.2 Cardiac Marker Panel 03/03/2021 [facility] C enter [address] [place], [place] [id number] [phone] CPK Creatine Phosphokinase 74 U/L Normal 39-30 8 CK-MB Value Mass 2.2 NG/ML Normal <3.6 MB/CK Relative Index 2.97 Normal < Or =4 5 Troponin I < 0.02 NG/ML Normal < 0.10 6 Liver Profile 03/03/2021 [facility] [address] [place] [address] [phone] Ast/Sgot 13 U/L Normal 7-37 Alt/SGPT 23 U/L Normal 12-78 Alkaline Phosphatase 101 U/L Normal 45-117 Bilirubin,Total 0.4 mg/dL Normal 0.2-1.0 Bilirubin,Direct 0.1 mg/dL Normal 0.0-0.2 Total Protein 7.0 GM/DL Normal 6.4-8.2 Albumin 3.3 GM/DL Normal 3.2-5.2 Albumin/Globulin Ratio 0.9 Normal Basic Metabolic Profile 03/03/[address] [address] [phone] Glucose, Fasting 195 mg/dL High 70-100 Blood [...] mg/dL Low 8.8-10.2 Laboratory test finding 03/03/[address] [address] [phone] NT-Pro BNP 25 pg/mL Normal <125 Thyroxine (T4) 6.9 g/dL Normal 4.5-12.0 Thyroid Stimulating Hormone 1.610 uIU/ML Normal 0.358-3.740 Venous Blood Gas 03/03/2021 [facility] [address] [place] [address] [phone] Venous PH 7.358 units Normal 7.330-7.430 Venous Partial Pressure Co2 60.4 mmHg High 38.0-50.0 Venous Partial Pressure O2 34.9 mmHg Normal 30.0-50.0 Venous Total Co2 35.1 mEq/L High 24.0-28.0 Venous Hco3 33.2 mEq/L High 23.0-27.0 Venous Base Excess 5.9 High -2.0-2.0 Venous Standard Hco3 28.9 mEq/L Normal Venous O2 Saturation 61.4 % Normal 60.0-80.0 Respiratory Panel 02/16/2021 [facility] [address] [place] [address] [phone] Respiratory Panel This respiratory <SEE NOTE> 8 Laboratory test finding 02/16/[address] [address] [phone] NT-Pro BNP 27 pg/mL Normal <125 Thyroxine (T4) 6.6 g/dL Normal 4.5-12.0 Thyroid Stimulating Hormone 1.250 uIU/ML Normal 0.358-3.740 Basic Metabolic Profile 02/16/[address] [address] [phone] Glucose, Fasting 181 mg/dL High 70-100 Blood [...] 9.2 mg/dL Normal 8.8-10.2 Liver Profile 02/16/2021 [facility] [address] [place] [address] [phone] Ast/Sgot 11 U/L Normal 7-37 Alt/SGPT 26 U/L Normal 12-78 Alkaline Phosphatase 112 U/L Normal 45-117 Bilirubin,Total 0.5 mg/dL Normal 0.2-1.0 Bilirubin,Direct 0.2 mg/dL Normal 0.0-0.2 Total Protein 7.4 GM/DL Normal 6.4-8.2 Albumin 3.6 GM/DL Normal 3.2-5.2 Albumin/Globulin Ratio 0.9 Normal Laboratory test finding 02/16/[address] [address] [phone] Lactic Acid Sepsis Protocol 1.5 mmol/L Normal 0.4- 2.0 10 CBC With Differential 02/16/[address] [address] [phone] White Blood Count 14.4 10 High 4.0-10.0 [...] 36.0-66.0 Lymph % 10.8 % Low 24.0-44.0 Trimble % 5.7 % Normal 2.0-8.0 Eos % 3.3 % High 0.0-3.0 Baso % 0.9 % Normal 0.0-1.0 Immature Granulocyte % 0.4 % Normal 0-3.0 Nucleated Red Blood Cell % 0.0 % Normal 0-0 Neutrophils # 11.4 10 High 1.5-8.5 Lymph # 1.6 10 Normal 1.5-5.0 Trimble # 0.8 10 Normal 0.0-0.8 Eos # 0.5 10 Normal 0.0-0.5 Baso # 0.1 10 Normal 0.0-0.2 Venous Blood Gas 02/16/2021 [facility] [address], [place] [address] [phone] Venous PH 7.391 units Normal 7.330-7.430 Venous Partial Pressure Co2 51.4 mmHg High 38.0-50.0 Venous Partial Pressure O2 51.8 mmHg High 30.0-50.0 Venous Total Co2 32.1 mEq/L High 24.0-28.0 Venous Hco3 30.5 mEq/L High 23.0-27.0 Venous Base Excess 4.3 High -2.0-2.0 Venous Standard Hco3 28.0 mEq/L Normal Venous O2 Saturation 86.8 % High 60.0-80.0 Cardiac Marker Panel 02/16/2021 [facility] enter [address], [place] [id number] [phone] CPK Creatine Phosphokinase 51 U/L Normal 39-30 8 CK-MB Value Mass 1.7 NG/ML Normal <3.6 MB/CK Relative Index 3.33 Normal < Or =4 11 Troponin I < 0.02 NG/ML Normal < 0.10 12 Istat ABG 01/26/2021 [facility] [address], [place] [address]83 [phone] iSTAT pH 7.364 units Normal 7.350-7.450 iSTAT pCO2 56.8 MMHG High 35.0-45.0 iSTAT pO2 77.0 MMHG Low 80-105 iSTAT Tco2 34.0 mmol/L High 23.0-27.0 iSTAT Hco3 32.4 mmol/L High 22.0-26.0 iSTAT Base Excess 7.0 mmol/L High -2.0-3.0 iSTAT sO2 94 % Low 95-98 Laboratory test finding 01/26/2021 [facility] [address] [place] [address] [phone] iSTAT Troponin 0.00 NG/ML Normal 0.00-0.08 Istat ABG 01/11/2021 [facility] [address] [place] [address] [phone] iSTAT pH 7.389 units Normal 7.350-7.450 iSTAT pCO2 59.8 MMHG High 35.0-45.0 iSTAT pO2 77.0 MMHG Low 80-105 iSTAT Tco2 38.0 mmol/L High 23.0-27.0 iSTAT Hco3 36.1 mmol/L High 22.0-26.0 iSTAT Base Excess 11.0 mmol/L High -2.0-3.0 iSTAT sO2 95 % Normal 95-98 A1c 12/31/2020 [facility] Raw Stock Drier Tender: [place] [address] [phone] Hba1c 8.5 % High <5.7 13 Est Avg Glucose 197 mg/dL High 60 - 110 Comprehensive Chem Profile 12/31/2020 [facility] Raw Stock Drier Tender: [place] [address] [phone] Glucose 202 mg/dL High 74 - 99 [...] mL/min >60 16 Complete Blood Count 12/31/2020 [facility] Raw Stock Drier Tender: [place] [address] [phone] WBC 18.3 x10*3/UL High 4.1 - 10.9 [...] 2.0 - 7.8 Arterial Blood Gas 11/20/2020 [facility] [address] [place] [address] [phone] ABG pH (Arterial) 7.459 units High 7.350-7.450 ABG Partial Pressure Co2 39.5 mmHg Normal 35.0-45.0 ABG Partial Pressure O2 100.7 mmHg High 75.0-100.0 ABG Total Co2 28.6 mEq/L Normal 23.0-31.0 ABG Hco3 27.4 mEq/L High 22.0-26.0 ABG Base Excess 3.4 High -2.0-2.0 ABG Standard Hco3 27.5 mEq/L High 22.0-26.0 ABG O2 Saturation 98.1 % Normal 95.0-99.0 Respiratory Panel 11/20/2020 [facility] [address] [place] [address] [phone] Respiratory Panel This respiratory <SEE NOTE> 18 CBC With Differential 11/20/2020 [facility] [address] [place] [address] [phone] White Blood Count 12.8 10 High 4.0-10.0 [...] 36.0-66.0 Lymph % 13.9 % Low 24.0-44.0 Trimble % 6.4 % Normal 2.0-8.0 Eos % 5.7 % High 0.0-3.0 Baso % 1.1 % High 0.0-1.0 Immature Granulocyte % 0.4 % Normal 0-3.0 Nucleated Red Blood Cell % 0.0 % Normal 0-0 Neutrophils # 9.3 10 High 1.5-8.5 Lymph # 1.8 10 Normal 1.5-5.0 Trimble # 0.8 10 Normal 0.0-0.8 Eos # 0.7 10 High 0.0-0.5 Baso # 0.1 10 Normal 0.0-0.2 Cardiac Marker Panel 11/20/2020 [facility] enter [address] [place] [address] [phone] CPK Creatine Phosphokinase 118 U/L Normal 39-30 8 CK-MB Value Mass 3.5 NG/ML Normal <3.6 MB/CK Relative Index 2.97 Normal < Or =4 19 Troponin I < 0.02 NG/ML Normal < 0.10 20 Liver Profile 11/20/2020 [facility] [address] [place] [address] [phone] Ast/Sgot 22 U/L Normal 7-37 Alt/SGPT 25 U/L Normal 12-78 Alkaline Phosphatase 117 U/L Normal 45-117 Bilirubin,Total 0.4 mg/dL Normal 0.2-1.0 Bilirubin,Direct < 0.1 mg/dL Normal 0.0-0.2 Total Protein 7.2 GM/DL Normal 6.4-8.2 Albumin 3.0 GM/DL Low 3.2-5.2 Albumin/Globulin Ratio 0.7 Normal Basic Metabolic Profile 11/20/[address] [address] [phone] Glucose, Fasting 180 mg/dL High 70-100 Blood [...] mg/dL Normal 8.8-10.2 Laboratory test finding 11/20/[address] [address] [phone] NT-Pro BNP 36 pg/mL Normal <125 1 [...] pathogens. DISCLAIMER: Testing was performed using the [facility] SARS-CoV-2 test. This test was developed and its performance characteristics determined by [facility]. This test has not been FDA cleared [...] Troponin I Reference Interva l for Siemens [place] LOCI: 99th Percentile= 0.00-0.045 ng/ml Risk Stratification: [...] Little GFR Left ESRD GFR <15 on STAVE CUTTING SUPERVISOR 8 This respiratory PCR panel d etects [...] Little GFR Left ESRD GFR <15 on STAVE CUTTING SUPERVISOR 10 Y/N query for Sepsis Lactate Rule: Y 11 DIAGNOSIS CRITERIA MMB ng/ml Relative Index (RI) NON-AMI < or = 5 N/A TELLO ZONE > 5 < or = 4 AMI > 5 > 4 12 Troponin I Reference Interva l for [employer] LOCI: 99th Percentile= 0.00-0.045 ng/ml Risk Stratification: [...] LITTLE GFR LEFT ESRD GFR <15 ON STAVE CUTTING SUPERVISOR 17 NOTE: RESULT VERIFIED. 18 This respiratory [...] 20 Troponin I Reference Interva l for [employer] LOCI: 99th Percentile= 0.00-0.045 ng/ml Risk Stratification: [...] Little GFR Left ESRD GFR <15 on STAVE CUTTING SUPERVISOR Procedures Date Code Description Status 03/10/2021 88962 Office/Outpatient Established Lo w MDM 20-29 Min Completed 01/22/2021 67834 Trans Care SRV W/I 14D Of DC, Co mm W/I 2 Dys Med Rec Completed 12/31/2020 17322 Office/Outpatient Established Mo d MDM 30-39 Min Completed 12/03/2020 47324 Trans Care SRV W/I 14D Of DC, Co mm W/I 2 Dys Med Rec Completed 02/28/2018 08345180 Colonoscopy Completed Medical Devices Description No Information Available Encounters Type Date Location Provider Dx Diagnosis [facility] J[facility]9 Chronic obstructive pulmonary disease, u nspecified R09.02 Hypoxemia I50.32 Chronic diastolic (congestiv e) heart failure E11.40 Type 2 diabetes mellitus wit h diabetic neuropathy, unsp Z79.4 parts counterman (current) use of i nsulin R60.9 Edema, unspecified R26.89 Other abnormalities of gait and mobility Office Visit 01/22/2021 11[facility]a [facility] J44.1 Chronic obstructive pulmonary disease w (acute) exacerbation R09.02 Hypoxemia R60.9 Edema, unspecified G47.33 Obstructive sleep apnea (edmond lt) (pediatric) E11.65 Type 2 diabetes mellitus wit h hyperglycemia E11.40 Type 2 diabetes mellitus wit h diabetic neuropathy, unsp Z79.4 parts counterman (current) use of i nsulin Z91.120 Pt intentl undrdose of meds regimen due to financl hardship F43.21 Adjustment disorder with dep ressed mood G47.00 Insomnia, unspecified R26.89 Other abnormalities of gait and mobility Office Visit 12/31/2020 [facility] J[facility]1 Chronic obstructive pulmonary disease [...] E78.5 Hyperlipidemia, unspecified Office Visit 12/03/2020 9[facility] J[facility]1 Chronic obstructive pulmonary disease [...] neuropathy, unspecified Chas Louise M.D. 03/10/2021 Z79.4 parts counterman (current) use of insul in Chas Louise [...] neuropathy, unspecified Chas Louise M.D. 01/22/2021 Z79.4 parts counterman (current) use of insul in Chas Louise M.D. 01/22/2021 Z91.120 Patient's intentiona l underdosing of medication regimen due to financial hardship Chas Louise M.D. 01/22/2021 F43.21 Adjustment disorder with depress ed mood Chas Louise M.D. 01/22/2021 G47.00 Insomnia, unspecified Chas [...] neuropathy, unspecified Chas Louise M.D. 12/31/2020 Z79.4 parts counterman (current) use of insul in Chas Louise [...] 05/02/2021 10:20 am - Lab Schedule at [facility] * 05/07/2021 8:40 am - Uli Reaves DO at [facility] * 05/16/2021 3:00 pm - [facility] 12/03/2020 - Chas Louise M.D.* J44.1 [...] at home. He will follow up with [facility] appropriately.7. Anxiety disorder: Doing well. Continue duloxetine.8. Other chronic pain: Atypical. Appears to be stable. He will continue working with [facility] and let me know [...]
--- OUTSIDE RECORDS SUMMARY | 2021-06-21 10:07 | CCD | Continuity of Care Document ---
Author Organization Unknown Address Unknown Phone Unavailable Care Team Providers Care Printing Machinist Name Role Phone Uli Arango NP AUTM Arcadio Walls MD AUTM [phone] Chas Louise MD AUTM [phone] Corey Chou DO AUTM [phone] Justice Patton MD AUTM [phone] Problems Active Problems Provider Date Benign hypertensive heart disease without congestive h eart failure Nini Dick, [facility] Onset: 06/16/2011 Dyspnea Arcadio Walls MD [...] as directed Chas Louise MD 04/20 Ipratropium [place]/Albuterol Sulfate 0.5-2.5(3)mg/3ML Solution 1 nebulizer treatment 4 [...] Glucose BldC Glucomtr-nc 278 80-115 BMP 03/28/2021 [facility] - not interfaced (315)- - Calcium Ser/Plasma Mass/Vol 8.6 Sodium 140 Carbon Dioxide Ser/Plasm 40 Chloride Serum/Plasma 99 Potassium 3.6 Glucose 200 High 83-110 Blood Urea Nitrogen 19 High 7-18 Creatinine 0.84 0.6-1.0 G F R >60.0 CBC without Differential 03/27/2021 [facility] - not inter faced (315)- - [...] Auto 0.1 0.0-0.2 Laboratory test finding 03/27/2021 [facility] - not interf aced (315)- - Magnesium Level 2.0 1.8-2.4 BMP 03/27/2021 [facility] - not interfaced (315)- - Calcium Ser/Plasma Mass/Vol 9.2 Sodium 139 Carbon Dioxide Ser/Plasm 41 Chloride Serum/Plasma 96 Potassium 3.1 Glucose 234 High 83-110 Blood Urea Nitrogen 21 High 7-18 Creatinine 1.00 0.6-1.0 G F R >60.0 CBC without Differential 03/26/2021 [facility] - not inter faced (315)- - White Blood Count 13.0 High 5.0-10.0 Red Blood Count 4.20 4.00-5.40 Platelets 299 172-450 Hemoglobin 11.2 Hematocrit 36.7 BMP 03/26/2021 [facility] - not interfaced (315)- - Calcium Ser/Plasma Mass/Vol 8.2 Sodium 140 Carbon Dioxide Ser/Plasm 38 Chloride Serum/Plasma 100 Potassium 3.8 Glucose 184 High 83-110 Blood Urea Nitrogen 25 High 7-18 Creatinine 1.03 High 0.6-1.0 G F R >60.0 Laboratory test finding 03/26/2021 [facility] - not interf aced (315)- - [...] Not Detected Negative Laboratory test finding 03/25/2021 [facility] - not interf aced (315)- - [...] For GFR 0.85 CBC without Differential 03/25/2021 [facility] - not inter faced (315)- - [...] Calc-sCnc 5.9 -2.0-2.0 CBC without Differential 02/19/2021 [facility] - not inter faced (315)- - White Blood Count 15.6 High 5.0-10.0 Red Blood Count 4.70 4.00-5.40 Platelets 353 172-450 Hemoglobin 12.4 Hematocrit 39.8 BMP 02/19/2021 [facility] - not interfaced (315)- - Calcium Ser/Plasma Mass/Vol 9.0 Sodium 141 Carbon Dioxide Ser/Plasm 43 Chloride Serum/Plasma 95 Potassium 2.9 Glucose 83 83-110 Blood Urea Nitrogen 22 High 7-18 Creatinine 0.87 0.6-1.0 G F R >60.0 Lab Results 02/16/2021 N2N/Direct CCD Impor t Lactic Acid Level 1.5 0.4-2.0 Laboratory test finding 02/16/2021 [facility] - not interf aced (315)- - Thyroid Stimulating Hormone 1.250 CMP 02/16/2021 [facility] - not interfaced (315)- - Albumin Serum/Plasma 3.6 Alt - SGPT 26 Calcium Ser/Plasma Mass/Vol 9.2 Carbon Dioxide Ser/Plasm 31 Chloride Serum/Plasma 100 Alkaline Phosphatase 112 Potassium 4.3 Protein Total 7.4 Sodium 137 Ast - Sgot 11 BUN - Urea Nitrogen 18 Glucose 181 High 83-110 Creatinine For GFR 0.89 CBC without Differential 02/16/2021 [facility] - not inter faced (315)- - [...] 01/26/2021 N2N/Direct CCD Impor t Troponin I Bld-[facility] 0.00 0.00-0.08 pH BldA 01/26/2021 N2N/Direct [...] 0 Procedures Date Code Description Status 04/21/2021 87174 Office/Outpatient Established Mo d MDM 30-39 Min Completed 04/21/2021 89239 ECG 12-Lead Completed Medical Devices Description No [...]
--- OUTSIDE RECORDS SUMMARY | 2021-06-21 10:07 | CCD | Continuity of Care Document ---
Author Organization Unknown Address Unknown Phone Unavailable Care Team Providers Care Cadd Instructor Name Role Phone Uli Arango NP AUTM Arcadio Walls MD AUTM [phone] Chas Louise MD AUTM [phone] Corey Chou DO AUTM [phone] Justice Patton MD AUTM [phone] Problems Active Problems Provider Date Benign hypertensive heart disease without congestive h eart failure Nini Dick, [facility] Onset: 06/16/2011 Dyspnea Arcadio Walls MD [...] Tablets 1 by mouth twice every day Cahs Louise MD 04/20/2021 Metoprolol Tartrate 25mg Tablets [...] as directed Chas Louise MD 04/20 Ipratropium [place]/Albuterol Sulfate 0.5-2.5(3)mg/3ML Solution 1 nebulizer treatment 4 [...] Glucose BldC Glucomtr-nc 278 80-115 BMP 03/28/2021 [facility] - not interfaced (315)- - Calcium Ser/Plasma Mass/Vol 8.6 Sodium 140 Carbon Dioxide Ser/Plasm 40 Chloride Serum/Plasma 99 Potassium 3.6 Glucose 200 High 83-110 Blood Urea Nitrogen 19 High 7-18 Creatinine 0.84 0.6-1.0 G F R >60.0 CBC without Differential 03/27/2021 [facility] - not inter faced (315)- - [...] Auto 0.1 0.0-0.2 Laboratory test finding 03/27/2021 [facility] - not interf aced (315)- - Magnesium Level 2.0 1.8-2.4 BMP 03/27/2021 [facility] - not interfaced (315)- - Calcium Ser/Plasma Mass/Vol 9.2 Sodium 139 Carbon Dioxide Ser/Plasm 41 Chloride Serum/Plasma 96 Potassium 3.1 Glucose 234 High 83-110 Blood Urea Nitrogen 21 High 7-18 Creatinine 1.00 0.6-1.0 G F R >60.0 CBC without Differential 03/26/2021 [facility] - not inter faced (315)- - White Blood Count 13.0 High 5.0-10.0 Red Blood Count 4.20 4.00-5.40 Platelets 299 172-450 Hemoglobin 11.2 Hematocrit 36.7 BMP 03/26/2021 [facility] - not interfaced (315)- - Calcium Ser/Plasma Mass/Vol 8.2 Sodium 140 Carbon Dioxide Ser/Plasm 38 Chloride Serum/Plasma 100 Potassium 3.8 Glucose 184 High 83-110 Blood Urea Nitrogen 25 High 7-18 Creatinine 1.03 High 0.6-1.0 G F R >60.0 Laboratory test finding 03/26/2021 [facility] - not interf aced (315)- - [...] Not Detected Negative Laboratory test finding 03/25/2021 [facility] - not interf aced (315)- - [...] For GFR 0.85 CBC without Differential 03/25/2021 [facility] - not inter faced (315)- - [...] Calc-sCnc 5.9 -2.0-2.0 CBC without Differential 02/19/2021 [facility] - not inter faced (315)- - White Blood Count 15.6 High 5.0-10.0 Red Blood Count 4.70 4.00-5.40 Platelets 353 172-450 Hemoglobin 12.4 Hematocrit 39.8 BMP 02/19/2021 [facility] - not interfaced (315)- - Calcium Ser/Plasma Mass/Vol 9.0 Sodium 141 Carbon Dioxide Ser/Plasm 43 Chloride Serum/Plasma 95 Potassium 2.9 Glucose 83 83-110 Blood Urea Nitrogen 22 High 7-18 Creatinine 0.87 0.6-1.0 G F R >60.0 Lab Results 02/16/2021 N2N/Direct CCD Impor t Lactic Acid Level 1.5 0.4-2.0 Laboratory test finding 02/16/2021 [facility] - not interf aced (315)- - Thyroid Stimulating Hormone 1.250 CMP 02/16/2021 [facility] - not interfaced (315)- - Albumin Serum/Plasma 3.6 Alt - SGPT 26 Calcium Ser/Plasma Mass/Vol 9.2 Carbon Dioxide Ser/Plasm 31 Chloride Serum/Plasma 100 Alkaline Phosphatase 112 Potassium 4.3 Protein Total 7.4 Sodium 137 Ast - Sgot 11 BUN - Urea Nitrogen 18 Glucose 181 High 83-110 Creatinine For GFR 0.89 CBC without Differential 02/16/2021 [facility] - not inter faced (315)- - [...] 01/26/2021 N2N/Direct CCD Impor t Troponin I Bld-[facility] 0.00 0.00-0.08 pH BldA 01/26/2021 N2N/Direct CCD [...] 0 Procedures Date Code Description Status 04/21/2021 56083 Office/Outpatient Established Mo d MDM 30-39 Min Completed 04/21/2021 18463 ECG 12-Lead Completed Medical Devices Description No [...]
--- OUTSIDE RECORDS SUMMARY | 2021-06-21 10:07 | CCD ---
Continuity of Care Document (CCD) Created on: 04/30/2021 Corey Jang External Reference #: [id number] : 1955 Sex: Male Author Organization Unknown Address Unknown Phone Unavailable Care Team Providers Care Leather Drier Name Role Phone Uli Arango NP AUTM Arcadio Walls MD AUTM [phone] Chas Louise MD AUTM [phone] Corey Chou DO AUTM [phone] Justice Patton MD AUTM [phone] Problems Active Problems Provider Date Benign hypertensive heart disease without congestive h eart failure Nini Dick, [facility] Onset: 06/16/2011 Dyspnea Arcadio Walls [...] as directed Chas Louise MD 04/20 Ipratropium [place]/Albuterol Sulfate 0.5-2.5(3)mg/3ML Solution 1 nebulizer treatment 4 [...] Glucose BldC Glucomtr-nc 278 80-115 BMP 03/28/2021 [facility] - not interfaced (315)- - Calcium Ser/Plasma Mass/Vol 8.6 Sodium 140 Carbon Dioxide Ser/Plasm 40 Chloride Serum/Plasma 99 Potassium 3.6 Glucose 200 High 83-110 Blood Urea Nitrogen 19 High 7-18 Creatinine 0.84 0.6-1.0 G F R >60.0 CBC without Differential 03/27/2021 [facility] - not inter faced (315)- - White [...] Auto 0.1 0.0-0.2 Laboratory test finding 03/27/2021 [facility] - not interf aced (315)- - Magnesium Level 2.0 1.8-2.4 BMP 03/27/2021 [facility] - not interfaced (315)- - Calcium Ser/Plasma Mass/Vol 9.2 Sodium 139 Carbon Dioxide Ser/Plasm 41 Chloride Serum/Plasma 96 Potassium 3.1 Glucose 234 High 83-110 Blood Urea Nitrogen 21 High 7-18 Creatinine 1.00 0.6-1.0 G F R >60.0 CBC without Differential 03/26/2021 [facility] - not inter faced (315)- - White Blood Count 13.0 High 5.0-10.0 Red Blood Count 4.20 4.00-5.40 Platelets 299 172-450 Hemoglobin 11.2 Hematocrit 36.7 BMP 03/26/2021 [facility] - not interfaced (315)- - Calcium Ser/Plasma Mass/Vol 8.2 Sodium 140 Carbon Dioxide Ser/Plasm 38 Chloride Serum/Plasma 100 Potassium 3.8 Glucose 184 High 83-110 Blood Urea Nitrogen 25 High 7-18 Creatinine 1.03 High 0.6-1.0 G F R >60.0 Laboratory test finding 03/26/2021 [facility] - not interf aced (315)- - Magnesium [...] Not Detected Negative Laboratory test finding 03/25/2021 [facility] - not interf aced (315)- - Thyroid [...] For GFR 0.85 CBC without Differential 03/25/2021 [facility] - not inter faced (315)- - White [...] Calc-sCnc 5.9 -2.0-2.0 CBC without Differential 02/19/2021 [facility] - not inter faced (315)- - White Blood Count 15.6 High 5.0-10.0 Red Blood Count 4.70 4.00-5.40 Platelets 353 172-450 Hemoglobin 12.4 Hematocrit 39.8 BMP 02/19/2021 [facility] - not interfaced (315)- - Calcium Ser/Plasma Mass/Vol 9.0 Sodium 141 Carbon Dioxide Ser/Plasm 43 Chloride Serum/Plasma 95 Potassium 2.9 Glucose 83 83-110 Blood Urea Nitrogen 22 High 7-18 Creatinine 0.87 0.6-1.0 G F R >60.0 Lab Results 02/16/2021 N2N/Direct CCD Impor t Lactic Acid Level 1.5 0.4-2.0 Laboratory test finding 02/16/2021 [facility] - not interf aced (315)- - Thyroid Stimulating Hormone 1.250 CMP 02/16/2021 [facility] - not interfaced (315)- - Albumin Serum/Plasma 3.6 Alt - SGPT 26 Calcium Ser/Plasma Mass/Vol 9.2 Carbon Dioxide Ser/Plasm 31 Chloride Serum/Plasma 100 Alkaline Phosphatase 112 Potassium 4.3 Protein Total 7.4 Sodium 137 Ast - Sgot 11 BUN - Urea Nitrogen 18 Glucose 181 High 83-110 Creatinine For GFR 0.89 CBC without Differential 02/16/2021 [facility] - not inter faced (315)- - White [...] 01/26/2021 N2N/Direct CCD Impor t Troponin I Bld-[facility] 0.00 0.00-0.08 pH BldA 01/26/2021 N2N/Direct [...] 0 Procedures Date Code Description Status 04/21/2021 65315 Office/Outpatient Established Mo d MDM 30-39 Min Completed 04/21/2021 09007 ECG 12-Lead Completed Medical Devices Description No [...]
--- OUTSIDE RECORDS SUMMARY | 2021-06-21 10:07 | CCD ---
Continuity of Care Document (CCD) Created on: 04/22/2021 LaineCorey External Reference #: [id number] : 1955 Sex: Male Author Author Corey TAN PA Organization Unknown Address [address] [place] [address], [facility] [place] [address] Phone [phone] Care Team Providers Care [employer] Name Role Phone Uli Arango NP AUTM [phone] Arcadio Walls MD AUTM [phone] Chas Louise MD AUTM [phone] Corey Chou DO AUTM [phone] Justice Patton MD AUTM [phone] Problems Active Problems Provider Date Benign hypertensive heart disease without congestive h eart failure Nini Dick, [employer]- Onset: 06/16/2011 Dyspnea Arcadio Walls MD Onset: [...] Sting Unable to assess criticality anaphylaxis 05/19/2011 Penicillin Unable to assess criticality anaphylaxis 05/19/2011 Codeine Unable to assess criticality severe itchi ng 05/19/2011 Advil Unable to assess criticality facial swell ing 05/04/2019 Primidone Unable to assess criticality severe itchi ng, changes taste of foods 04/20/2021 Medications Active Medications SIG Qnty Indications Ordering Provide r Date Levemir Flextouch 10 0Unit/ML Solution Pen-Inject inject as directed Chas Louise MD 04/20 Oxygen - Home 2 lpm via nc all the time Corey Chou DO 04/20/2021 Atorvastatin Calcium 10mg Tablets 1 by mouth every night at bedtime Chas Louise MD Tamsulosin HCL 0.4mg Capsules 2 by mouth every day Chas Louise MD 04/20/20[address] Duloxetine HCL 30[address] C[address] DR Part 2 by mouth every morning and 1 by mouth every evening Chas Louise MD 04/20/2021 Torsemide 20mg Tablets 2 by mouth every morning and 1 by mouth every evening I11.9 Jin Hills MD 04/20/2021 Metoprolol Tartrate 25mg Tablets 1 by mouth twice a day Chas Louise MD 04/20/2021 Glimepiride 2mg Tablets 1 by mouth twice every day Chas Louise MD 04/20/2021 Trazodone HCL 50mg Tablets 1 by mouth every night at bedtime Chas Louise MD 04/20/20 Epipen 2-Shashi 0.3mg/0 .3ML Solution Auto-Inject inject for allergic reactions as directed Chas Louise MD 04/20/2021 Ipratropium [place]/Albuterol Sulfate 0.5-2.5(3)mg/3ML Solution 1 nebulizer treatment 4 times a day (wit h each meal and bedtime). Unknown 05/03/2019 Symbicort 160-4.5mcg/Act Aerosol 2 puff twice a day Unknown 05/03/2019 Ketoconazole 2% Cream apply to affected areas twice daily x3 weeks Unknown 05/03 Aspir-[address] 1 po daily 90tabs Chase Lemos MD 05/19/2011 Immunizations Description No Information Available Vital Signs [...] Result H/L Range Note Laboratory test finding 03/28/2021 [facility] - not interf aced (315)- - Magnesium Level 2.0 1.8-2.4 BMP 03/28/2021 [facility] - not interfaced (315)- - Calcium Ser/Plasma Mass/Vol 8.6 Sodium 140 Carbon Dioxide Ser/Plasm 40 Chloride Serum/Plasma 99 Potassium 3.6 Glucose 200 High 83-110 Blood Urea Nitrogen 19 High 7-18 Creatinine 0.84 0.6-1.0 G F R >60.0 CBC without Differential 03/27/2021 [facility] - not inter faced (315)- - White Blood Count 9.8 5.0-10.0 Red Blood Count 4.64 4.00-5.40 Platelets 314 172-450 Hemoglobin 12.4 Hematocrit 40.6 BMP 03/27/2021 [facility] - not interfaced (315)- - Calcium Ser/Plasma Mass/Vol 9.2 Sodium 139 Carbon Dioxide Ser/Plasm 41 Chloride Serum/Plasma 96 Potassium 3.1 Glucose 234 High 83-110 Blood Urea Nitrogen 21 High 7-18 Creatinine 1.00 0.6-1.0 G F R >60.0 Laboratory test finding 03/27/2021 [facility] - not interf aced (315)- - Magnesium Level 2.0 1.8-2.4 CBC without Differential 03/26/2021 [facility] - not inter faced (315)- - White Blood Count 13.0 High 5.0-10.0 Red Blood Count 4.20 4.00-5.40 Platelets 299 172-450 Hemoglobin 11.2 Hematocrit 36.7 BMP 03/26/2021 [facility] - not interfaced (315)- - Calcium Ser/Plasma Mass/Vol 8.2 Sodium 140 Carbon Dioxide Ser/Plasm 38 Chloride Serum/Plasma 100 Potassium 3.8 Glucose 184 High 83-110 Blood Urea Nitrogen 25 High 7-18 Creatinine 1.03 High 0.6-1.0 G F R >60.0 Laboratory test finding 03/26/2021 [facility] - not interf aced (315)- - Magnesium Level 2.0 1.8-2.4 CBC without Differential 03/25/2021 [facility] - not inter faced (315)- - White Blood Count 12.6 High 5.0-10.0 Red Blood Count 4.33 4.00-5.40 Platelets 288 172-450 Hemoglobin 11.5 Hematocrit 36.8 Laboratory test finding 03/25/2021 [facility] - not interf aced (315)- - Thyroid Stimulating Hormone 0.307 CMP 03/25/2021 [facility] - not interfaced (315)- - Albumin Serum/Plasma 2.6 Alt - SGPT 19 Calcium Ser/Plasma Mass/Vol 8.6 Carbon Dioxide Ser/Plasm 34 Chloride Serum/Plasma 100 Alkaline Phosphatase 90 Potassium 4.7 Protein Total 6.5 Sodium 137 Ast - Sgot 9 BUN - Urea Nitrogen 17 Glucose 284 High 83-110 Creatinine For GFR 0.85 CBC without Differential 03/24/2021 [facility] - not inter faced (315)- - White Blood Count 13.4 High 5.0-10.0 Red Blood Count 4.50 4.00-5.40 Platelets 294 172-450 Hemoglobin 12.1 Hematocrit 38.6 CBC without Differential 02/19/2021 [facility] - not inter faced (315)- - White Blood Count 15.6 High 5.0-10.0 Red Blood Count 4.70 4.00-5.40 Platelets 353 172-450 Hemoglobin 12.4 Hematocrit 39.8 BMP 02/19/2021 [facility] - not interfaced (315)- - Calcium Ser/Plasma Mass/Vol 9.0 Sodium 141 Carbon Dioxide Ser/Plasm 43 Chloride Serum/Plasma 95 Potassium 2.9 Glucose 83 83-110 Blood Urea Nitrogen 22 High 7-18 Creatinine 0.87 0.6-1.0 G F R >60.0 CBC without Differential 02/16/2021 [facility] - not inter faced (315)- - White Blood Count 14.4 High 5.0-10.0 Red Blood Count 5.40 4.00-5.40 Platelets 331 172-450 Hemoglobin 14.0 Hematocrit 46.2 CMP 02/16/2021 [facility] - not interfaced (315)- - Albumin Serum/Plasma 3.6 Alt - SGPT 26 Calcium Ser/Plasma Mass/Vol 9.2 Carbon Dioxide Ser/Plasm 31 Chloride Serum/Plasma 100 Alkaline Phosphatase 112 Potassium 4.3 Protein Total 7.4 Sodium 137 Ast - Sgot 11 BUN - Urea Nitrogen 18 Glucose 181 High 83-110 Creatinine For GFR 0.89 Laboratory test finding 02/16/2021 [facility] - not interf aced (315)- - Thyroid Stimulating Hormone 1.250 Procedures Date Code Description Status 04/21/2021 36460 Office/Outpatient Established Mo d MDM 30-39 Min Completed 04/21/2021 72623 ECG 12-Lead Completed Medical Devices Description No [...]
--- OUTSIDE RECORDS SUMMARY | 2021-06-21 10:07 | CCD | Continuity of Care Document ---
Author Author Corey FLORENCE M.D. Organization Unknown Address [address] [facility] [address] [place] [address] Phone [phone] Care Team Providers Care Cardiac Nurse Name Role Phone Chas Florence MD AUTM [phone] Corey Chou DO AUTM [phone] Justice Patton MD AUTM [phone] [facility] AUTM [phone] [facility] AUTM [phone] Problems Active Problems Provider Date Rosacea Chas [...] SIG Qnty Indications Ordering Provide r Date Zithromax Z-Shashi 250mg Tablets take 2 tabs by mouth today, then one tab daily for 4 days 6tabs Tan Florence M.D. 02/05/2021 Trazodone HCL 50mg Tablets take one tablet by mouth at bedtime 30tabs Chas Florence M.D. 021 Freestyle Ines 2/Holmes/Flash Glucose M onitoring System 2Reader Device as directed dm 2 uncontrolled. 1unlaisha Florence M.D. 12/31/2020 Freestyle Ines 2/Sensor/Flash Glucose M onitoring System 2Sensor Misc reapply every 2 weeks dx uncontrolled dm2 6unlaisha Florence M.D. 12/31/2020 Metoprolol Tartrate 25mg Tablets 1 by mouth twice a day 180tabs Chas Florence M.D. 1 Levemir Flextouch 10 0Unit/ML Solution Pen-Inject inject 10 U bid - Then Titrate Upward if possible. 45ml Chas Florence M.D. 09/11/2020 BD Pen Needle/Omaira/Ultra -Fine/32G X 4mm 32G X 4 mm Misc 1 times a day 100units Chas Florence M.D. 09/11 Triamcinolone Acetonide 0.5% Cream apply twice a day as directed - do not overuse, risk of atropy. 45gm Chas Florence M.D. 07/17/2020 Atorvastatin Calcium 10mg Tablets 1 by mouth every day 90tausha Florence M.D. 11/28/2019 Nebulizer Device use as d irected susana Florence M.D. 12/22/2018 Nebulizer Kit/Tubing/Mouthpiece K it use four times a day dx j44.9 1mariel Florence M.D. 0 12/22/2018 Sildenafil Citrate 20mg Tablets 2-5 tab by mouth 1 hour before intercourse 25tausha Florence M.D. 11/25/2018 Onetouch Ultrasoft Lancets Misc test twice a day e11.65 200unlaisha Florence M.D. 07/29/19 19 Onetouch Ultra Blue Strips use twice daily to check blood sugar dx e11.65 200units Chas simpson M.D. 07/29/2018 Onetouch Ultra 2 w/Device Kit test twice a day and as directed e11.65 1units Chas Florence M.D. 07/29/2018 Tamsulosin HCL 0.4mg Capsules 2 daily 1/2 hour after same meal 180caps Chas Florence M.D. 2017 Medical Marijuana E78.5 Ernesto Martell 03/10/[address] Part 2 tabs in Am and 1 in PM by mouth daily 240caps R20.2 Chas Florence M.D. 02/03/2017 Denavir 1% [...] day as needed Corey Chou DO Ipratropium Reading/Albuterol Sulfate 0.5-2.5(3)mg/3ML Solution 1 vial tid as needed Corey Rodríguez DO Glimepiride 2mg Tablets 1 Tab PO bid 60tabs Chas Florence M.D. Torsemide 20mg Tablets 2 am 1 pm Unknown History Medications Lasix 40mg Tablets 2 by mouth every day as needed for swelling. Chas Florence M.D. 2020 - 03/31/2021 Zithromax Z-Shashi 250mg Tablets take 2 tabs by mouth today, then one tab daily for 4 days 6tabs Tan Florence M.D. 12/23/2020 - 12/31/2020 Medications Administered in Office Medication SIG Qnty Indications Ordering Provider Date Covid-19 vaccine, Unspecified Inj ection Unknown 10/09/2020 Covid-19 vaccine, Unspecified Inj ection Unknown 09/15/2020 Administration Of Flu Vaccine Inj ection Chas Florence M.D. 04/26/2018 Immunizations CPT Code Status Date Vaccine Lot # U-Flu Given 04/10/2020 Influenza,Unspecified [id number] Given 04/26/2018 Influenza Virus Vaccine, Quadrivalent ([id number]), Derived From Cell [id number] Vital Signs Date Vital Result Comment 03/10/2021 10:35am BP Systolic 124 mmHg BP Diastolic 70 mmHg Height 59 inches 4'11" Weight 252.00 lb stated O2 % BldC Oximetry 97 % 2 liters BMI (Body Mass Index) 50.9 kg/m2 01/22/2021 11:59am BP Systolic 112 mmHg BP Diastolic 68 mmHg Heart Rate 92 /min Height 59 inches 4'11" Weight 250.00 lb O2 % BldC Oximetry 90 % 1 liters BMI (Body Mass Index) 50.5 kg/m2 Results Test Acquired Date Facility Test Result H/L Range Note Influenza A/B RSV Covid Amp 03/03/[address] [id number] [phone] Influenza A Amplification NEGATIVE Normal Negati ve 1 Influenza B Amplification NEGATIVE Normal Negative 2 RSV Amplification NEGATIVE Normal Negative 3 Sars Covid-19 Amplification NEGATIVE Normal Negative 4 CBC With Differential 03/03/[address] [id number] [phone] White Blood Count 14.9 10 High 4.0-10.0 [...] 36.0-66.0 Lymph % 9.5 % Low 24.0-44.0 Lajas % 6.7 % Normal 2.0-8.0 Eos % 2.3 % Normal 0.0-3.0 Baso % 0.6 % Normal 0.0-1.0 Immature Granulocyte % 0.7 % Normal 0-3.0 Nucleated Red Blood Cell % 0.0 % Normal 0-0 Neutrophils # 11.9 10 High 1.5-8.5 Lymph # 1.4 10 Low 1.5-5.0 Lajas # 1.0 10 High 0.0-0.8 Eos # 0.4 10 Normal 0.0-0.5 Baso # 0.1 10 Normal 0.0-0.2 Cardiac Marker Panel 03/03/2021 [facility] enter [address] [place] [address] [phone] CPK Creatine Phosphokinase 74 U/L Normal 39-30 8 CK-MB Value Mass 2.2 NG/ML Normal <3.6 MB/CK Relative Index 2.97 Normal < Or =4 5 Troponin I < 0.02 NG/ML Normal < 0.10 6 Liver Profile 03/03/2021 [facility] nter [address] [place] [address] [phone] Ast/Sgot 13 U/L Normal 7-37 Alt/SGPT 23 U/L Normal 12-78 Alkaline Phosphatase 101 U/L Normal 45-117 Bilirubin,Total 0.4 mg/dL Normal 0.2-1.0 Bilirubin,Direct 0.1 mg/dL Normal 0.0-0.2 Total Protein 7.0 GM/DL Normal 6.4-8.2 Albumin 3.3 GM/DL Normal 3.2-5.2 Albumin/Globulin Ratio 0.9 Normal Basic Metabolic Profile 03/03/2021 [facility] [address] [place] [address] [phone] Glucose, Fasting 195 mg/dL High 70-100 Blood [...] mg/dL Low 8.8-10.2 Laboratory test finding 03/03/[address] [address] [phone] NT-Pro BNP 25 pg/mL Normal <125 Thyroxine (T4) 6.9 g/dL Normal 4.5-12.0 Thyroid Stimulating Hormone 1.610 uIU/ML Normal 0.358-3.740 Venous Blood Gas 03/03/[address] [address] [phone] Venous PH 7.358 units Normal 7.330-7.430 Venous Partial Pressure Co2 60.4 mmHg High 38.0-50.0 Venous Partial Pressure O2 34.9 mmHg Normal 30.0-50.0 Venous Total Co2 35.1 mEq/L High 24.0-28.0 Venous Hco3 33.2 mEq/L High 23.0-27.0 Venous Base Excess 5.9 High -2.0-2.0 Venous Standard Hco3 28.9 mEq/L Normal Venous O2 Saturation 61.4 % Normal 60.0-80.0 Respiratory Panel 02/16/2021 [facility] [address] [address] [phone] Respiratory Panel This respiratory <SEE NOTE> 8 Laboratory test finding 02/16/[address] [address] [phone] NT-Pro BNP 27 pg/mL Normal <125 Thyroxine (T4) 6.6 g/dL Normal 4.5-12.0 Thyroid Stimulating Hormone 1.250 uIU/ML Normal 0.358-3.740 Basic Metabolic Profile 02/16/2021 [address] [place] [address] [phone] Glucose, Fasting 181 mg/dL High 70-100 Blood [...] 9.2 mg/dL Normal 8.8-10.2 Liver Profile 02/16/2021 [facility] nter [address] [place] [address] [phone] Ast/Sgot 11 U/L Normal 7-37 Alt/SGPT 26 U/L Normal 12-78 Alkaline Phosphatase 112 U/L Normal 45-117 Bilirubin,Total 0.5 mg/dL Normal 0.2-1.0 Bilirubin,Direct 0.2 mg/dL Normal 0.0-0.2 Total Protein 7.4 GM/DL Normal 6.4-8.2 Albumin 3.6 GM/DL Normal 3.2-5.2 Albumin/Globulin Ratio 0.9 Normal Laboratory test finding 02/16/[address] [address] [phone] Lactic Acid Sepsis Protocol 1.5 mmol/L Normal 0.4- 2.0 10 CBC With Differential 02/16/[address] [address] [phone] White Blood Count 14.4 10 High 4.0-10.0 [...] 36.0-66.0 Lymph % 10.8 % Low 24.0-44.0 Lajas % 5.7 % Normal 2.0-8.0 Eos % 3.3 % High 0.0-3.0 Baso % 0.9 % Normal 0.0-1.0 Immature Granulocyte % 0.4 % Normal 0-3.0 Nucleated Red Blood Cell % 0.0 % Normal 0-0 Neutrophils # 11.4 10 High 1.5-8.5 Lymph # 1.6 10 Normal 1.5-5.0 Lajas # 0.8 10 Normal 0.0-0.8 Eos # 0.5 10 Normal 0.0-0.5 Baso # 0.1 10 Normal 0.0-0.2 Venous [facility] [address] [place] [address] [phone] Venous PH 7.391 units Normal 7.330-7.430 Venous Partial Pressure Co2 51.4 mmHg High 38.0-50.0 Venous Partial Pressure O2 51.8 mmHg High 30.0-50.0 Venous Total Co2 32.1 mEq/L High 24.0-28.0 Venous Hco3 30.5 mEq/L High 23.0-27.0 Venous Base Excess 4.3 High -2.0-2.0 Venous Standard Hco3 28.0 mEq/L Normal Venous O2 Saturation 86.8 % High 60.0-80.0 Cardiac Marker Panel 02/16/2021 [facility] enter [address] [place] [address] [phone] CPK Creatine Phosphokinase 51 U/L Normal 39-30 8 CK-MB Value Mass 1.7 NG/ML Normal <3.6 MB/CK Relative Index 3.33 Normal < Or =4 11 Troponin I < 0.02 NG/ML Normal < 0.10 12 Istat ABG 01/26/2021 [facility] nter [address] [place] [address] [phone] iSTAT pH 7.364 units Normal 7.350-7.450 iSTAT pCO2 56.8 MMHG High 35.0-45.0 iSTAT pO2 77.0 MMHG Low 80-105 iSTAT Tco2 34.0 mmol/L High 23.0-27.0 iSTAT Hco3 32.4 mmol/L High 22.0-26.0 iSTAT Base Excess 7.0 mmol/L High -2.0-3.0 iSTAT sO2 94 % Low 95-98 Laboratory test finding 01/26/2021 [facility] [address] [place] [address] [phone] iSTAT Troponin 0.00 NG/ML Normal 0.00-0.08 Istat ABG 01/11/2021 [facility] nter [address] [place] [address] [phone] iSTAT pH 7.389 units Normal 7.350-7.450 iSTAT pCO2 59.8 MMHG High 35.0-45.0 iSTAT pO2 77.0 MMHG Low 80-105 iSTAT Tco2 38.0 mmol/L High 23.0-27.0 iSTAT Hco3 36.1 mmol/L High 22.0-26.0 iSTAT Base Excess 11.0 mmol/L High -2.0-3.0 iSTAT sO2 95 % Normal 95-98 A1c 12/31/2020 [facility] , Supply Teacher: [place] [address] [phone] Hba1c 8.5 % High <5.7 13 Est Avg Glucose 197 mg/dL High 60 - 110 Comprehensive Chem Profile 12/31/2020 [facility], Supply Teacher: [place] [address] [phone] Glucose 202 mg/dL High 74 - 99 [...] mL/min >60 16 Complete Blood Count 12/31/2020 [facility] Supply Teacher: [place] [address] [phone] WBC 18.3 x10*3/UL High 4.1 - 10.9 [...] 2.0 - 7.8 Arterial Blood Gas 11/20/2020 [facility] nter [address] [place] [address] [phone] ABG pH (Arterial) 7.459 units High 7.350-7.450 ABG Partial Pressure Co2 39.5 mmHg Normal 35.0-45.0 ABG Partial Pressure O2 100.7 mmHg High 75.0-100.0 ABG Total Co2 28.6 mEq/L Normal 23.0-31.0 ABG Hco3 27.4 mEq/L High 22.0-26.0 ABG Base Excess 3.4 High -2.0-2.0 ABG Standard Hco3 27.5 mEq/L High 22.0-26.0 ABG O2 Saturation 98.1 % Normal 95.0-99.0 Respiratory Panel 11/20/2020 [facility] nter [address] [place] [id number] [phone] Respiratory Panel This respiratory <SEE NOTE> 18 CBC With Differential 11/20/2020 [facility] [address] [place] [address] [phone] White Blood Count 12.8 10 High 4.0-10.0 [...] 36.0-66.0 Lymph % 13.9 % Low 24.0-44.0 Lajas % 6.4 % Normal 2.0-8.0 Eos % 5.7 % High 0.0-3.0 Baso % 1.1 % High 0.0-1.0 Immature Granulocyte % 0.4 % Normal 0-3.0 Nucleated Red Blood Cell % 0.0 % Normal 0-0 Neutrophils # 9.3 10 High 1.5-8.5 Lymph # 1.8 10 Normal 1.5-5.0 Lajas # 0.8 10 Normal 0.0-0.8 Eos # 0.7 10 High 0.0-0.5 Baso # 0.1 10 Normal 0.0-0.2 Cardiac Marker Panel 11/20/2020 [facility] enter [address] [place] [address] [phone] CPK Creatine Phosphokinase 118 U/L Normal 39-30 8 CK-MB Value Mass 3.5 NG/ML Normal <3.6 MB/CK Relative Index 2.97 Normal < Or =4 19 Troponin I < 0.02 NG/ML Normal < 0.10 20 Liver Profile 11/20/2020 [facility] nter [address] [place] [address] [phone] Ast/Sgot 22 U/L Normal 7-37 Alt/SGPT 25 U/L Normal 12-78 Alkaline Phosphatase 117 U/L Normal 45-117 Bilirubin,Total 0.4 mg/dL Normal 0.2-1.0 Bilirubin,Direct < 0.1 mg/dL Normal 0.0-0.2 Total Protein 7.2 GM/DL Normal 6.4-8.2 Albumin 3.0 GM/DL Low 3.2-5.2 Albumin/Globulin Ratio 0.7 Normal Basic Metabolic Profile 11/20/[address] [address] [phone] Glucose, Fasting 180 mg/dL High 70-100 Blood [...] mg/dL Normal 8.8-10.2 Laboratory test finding 11/20/[address] [address] [phone] NT-Pro BNP 36 pg/mL Normal <125 1 [...] pathogens. DISCLAIMER: Testing was performed using the [facility] SARS-CoV-2 test. This test was developed and its performance characteristics determined by [facility]. This test has not been FDA cleared [...] Troponin I Reference Interva l for Siemens Bulpitt LOCI: 99th Percentile= 0.00-0.045 ng/ml Risk Stratification: [...] Little GFR Left ESRD GFR <15 on PARKING ANALYST 8 This respiratory PCR panel d etects [...] Little GFR Left ESRD GFR <15 on PARKING ANALYST 10 Y/N query for Sepsis Lactate Rule: Y 11 DIAGNOSIS CRITERIA MMB ng/ml Relative Index (RI) NON-AMI < or = 5 N/A TELLO ZONE > 5 < or = 4 AMI > 5 > 4 12 Troponin I Reference Interva l for IPX LOCI: 99th Percentile= 0.00-0.045 ng/ml Risk Stratification: [...] LITTLE GFR LEFT ESRD GFR <15 ON PARKING ANALYST 17 NOTE: RESULT VERIFIED. 18 This respiratory [...] 20 Troponin I Reference Interva l for Siemens Bulpitt LOCI: 99th Percentile= 0.00-0.045 ng/ml Risk Stratification: [...] Little GFR Left ESRD GFR <15 on PARKING ANALYST Procedures Date Code Description Status 03/10/2021 36465 Office/Outpatient Established Lo w MDM 20-29 Min Completed 01/22/2021 39180 Trans Care SRV W/I 14D Of DC, Co mm W/I 2 Dys Med Rec Completed 12/31/2020 93437 Office/Outpatient Established Mo d MDM 30-39 Min Completed 12/03/2020 92082 Trans Care SRV W/I 14D Of DC, Co mm W/I 2 Dys Med Rec Completed 02/28/2018 [id number] Colonoscopy Completed Medical Devices Description No Information Available Encounters Type Date Location Provider Dx Diagnosis [facility] Chronic obstructive pulmonary disease, u nspecified R09.02 Hypoxemia I50.32 Chronic diastolic (congestiv e) heart failure E11.40 Type 2 diabetes mellitus wit h diabetic neuropathy, unsp Z79.4 intermediate designer (current) use of i nsulin R60.9 Edema, unspecified R26.89 Other abnormalities of gait and mobility Office Visit [facility]1 Chronic obstructive pulmonary disease w (acute) exacerbation R09.02 Hypoxemia R60.9 Edema, unspecified G47.33 Obstructive sleep apnea (edmond lt) (pediatric) E11.65 Type 2 diabetes mellitus wit h hyperglycemia E11.40 Type 2 diabetes mellitus wit h diabetic neuropathy, unsp Z79.4 intermediate designer (current) use of i nsulin Z91.120 Pt intentl undrdose of meds regimen due to financl hardship F43.21 Adjustment disorder with dep ressed mood G47.00 Insomnia, unspecified R26.89 Other abnormalities of gait and mobility Office Visit 12/31/2020 10:00a [facility], PBobCBob Florence M.D. J44.1 Chronic obstructive pulmonary disease w (acute) exacerbation R09.02 Hypoxemia R60.9 Edema, unspecified G47.33 Obstructive sleep apnea (edmond lt) (pediatric) E11.65 Type 2 diabetes mellitus wit h hyperglycemia E11.40 Type 2 diabetes mellitus wit h diabetic neuropathy, unsp Z79.4 USP (current) use of i nsulin F41.9 Anxiety disorder, unspecifie d G89.29 Other chronic pain J43.1 Panlobular emphysema E78.5 Hyperlipidemia, unspecified Office Visit 12/03/2020 9:30a [facility] PRafi Florence M.D. J44.1 Chronic obstructive pulmonary disease w (acute) exacerbation R09.02 Hypoxemia R60.9 Edema, unspecified G47.33 Obstructive sleep apnea (edmond lt) (pediatric) E11.65 Type 2 diabetes mellitus wit h hyperglycemia E11.40 Type 2 diabetes mellitus wit h diabetic neuropathy, unsp F41.9 Anxiety disorder, unspecifie d G89.29 Other chronic pain Assessments Date Code Description Provider 03/10/2021 J44.9 Chronic obstructive pulmonary di sease, unspecified Chas Florence M.D. 03/10/2021 R09.02 Hypoxemia Chas Florence M.D. 03/10/2021 I50.32 Chronic diastolic (congestive) h eart failure Chas Florence M.D. 03/10/2021 E11.40 Type 2 diabetes sharda itus with diabetic neuropathy, unspecified Chas Florence M.D. 03/10/2021 Z79.4 USP (current) use of insul in Chas Florence M.D. 03/10/2021 R60.9 Edema, unspecified Chas hallman M.D. 03/10/2021 R26.89 Other abnormalities of gait and mobility Chas Florence M.D. 01/22/2021 J44.1 Chronic obstructive pulmonary disease with (acute) exacerbation Chas Florence M.D. 01/22/2021 R09.02 Hypoxemia Chas Florence M.D. 01/22/2021 R60.9 Edema, unspecified Chas hallman M.D. 01/22/2021 G47.33 Obstructive sleep apnea (adult) (pediatric) Chas Florence M.D. 01/22/2021 E11.65 Type 2 diabetes mellitus with hy perglycemia Chas Florence M.D. 01/22/2021 E11.40 Type 2 diabetes sharda itus with diabetic neuropathy, unspecified Chas Florence M.D. 01/22/2021 Z79.4 intermediate designer (current) use of insul in Chas Florence M.D. 01/22/2021 Z91.120 Patient's intentiona l underdosing of medication regimen due to financial hardship Chas Florence M.D. 01/22/2021 F43.21 Adjustment disorder with depress ed mood Chas Florence M.D. 01/22/2021 G47.00 Insomnia, unspecified Chas bell M.D. 01/22/2021 R26.89 Other abnormalities of gait and mobility Chas Florence M.D. 12/31/2020 J44.1 Chronic obstructive pulmonary disease with (acute) exacerbation Chas Florence M.D. 12/31/2020 R09.02 Hypoxemia Chas Florence M.D. 12/31/2020 R60.9 Edema, unspecified Chas hallman M.D. 12/31/2020 G47.33 Obstructive sleep apnea (adult) (pediatric) Chas Florence M.D. 12/31/2020 E11.65 Type 2 diabetes mellitus with hy perglycemia Chas Florence M.D. 12/31/2020 E11.40 Type 2 diabetes sharda itus with diabetic neuropathy, unspecified Chas Florence M.D. 12/31/2020 Z79.4 intermediate designer (current) use of insul in Chas Florence M.D. 12/31/2020 F41.9 Anxiety disorder, unspecified aTn Florence M.D. 12/31/2020 G89.29 Other chronic pain Chas hallman M.D. 12/31/2020 J43.1 Panlobular emphysema Chas simpson M.D. 12/31/2020 E78.5 Hyperlipidemia, unspecified Moises Florence M.D. 12/03/2020 J44.1 Chronic obstructive pulmonary disease with (acute) exacerbation Chas Florence M.D. 12/03/2020 R09.02 Hypoxemia Chas Florence M.D. 12/03/2020 R60.9 Edema, unspecified Chas hallman M.D. 12/03/2020 G47.33 Obstructive sleep apnea (adult) (pediatric) Chas Florence M.D. 12/03/2020 E11.65 Type 2 diabetes mellitus with hy perglycemia Chas Florence M.D. 12/03/2020 E11.40 Type 2 diabetes sharda itus with diabetic neuropathy, unspecified Chas Florence M.D. 12/03/2020 F41.9 Anxiety disorder, unspecified Tan Florence M.D. 12/03/2020 G89.29 Other chronic pain Chas hallman M.D. Plan of Treatment Future Appointment(s):* 05/16/2021 3:00 pm - Chas Florence M.D. at [facility] 12/03/2020 - Chas Florence M.D.* J44.1 Chronic obstructive pulmonary disease w [...] up with Cardiology. I have reviewed his 2018 nuclear stress test which was unremarkable. He [...] at home. He will follow up with [facility] appropriately.7. Anxiety disorder: Doing well. Continue duloxetine.8. Other chronic pain: Atypical. Appears to be stable. He will continue working with [facility] and let me know if [...]
--- OUTSIDE RECORDS SUMMARY | 2021-06-21 10:07 | CCD | Continuity of Care Document ---
Author Organization Unknown Address Unknown Phone Unavailable Care Team Providers Care Corrugated Sheet Material Sheeter Name Role Phone Uli Arango NP AUTM Arcadio Walls MD AUTM [phone] Chas Louise MD AUTM [phone] Corey Chou DO AUTM [phone] Justice Patton MD AUTM [phone] Problems Active Problems Provider Date Benign hypertensive heart disease without congestive h eart failure Nini Dick, [facility] Onset: 06/16/2011 Dyspnea Arcadio Walls MD Onset: [...] as directed Chas Louise MD 04/20 Ipratropium Brandon/Albuterol Sulfate 0.5-2.5(3)mg/3ML Solution 1 nebulizer treatment 4 [...] Glucose BldC Glucomtr-nc 278 80-115 BMP 03/28/2021 [facility] - not interfaced (315)- - Calcium Ser/Plasma Mass/Vol 8.6 Sodium 140 Carbon Dioxide Ser/Plasm 40 Chloride Serum/Plasma 99 Potassium 3.6 Glucose 200 High 83-110 Blood Urea Nitrogen 19 High 7-18 Creatinine 0.84 0.6-1.0 G F R >60.0 CBC without Differential 03/27/2021 [facility] - not inter faced (315)- - White [...] Auto 0.1 0.0-0.2 Laboratory test finding 03/27/2021 [facility] - not interf aced (315)- - Magnesium Level 2.0 1.8-2.4 BMP 03/27/2021 [facility] - not interfaced (315)- - Calcium Ser/Plasma Mass/Vol 9.2 Sodium 139 Carbon Dioxide Ser/Plasm 41 Chloride Serum/Plasma 96 Potassium 3.1 Glucose 234 High 83-110 Blood Urea Nitrogen 21 High 7-18 Creatinine 1.00 0.6-1.0 G F R >60.0 CBC without Differential 03/26/2021 [facility] - not inter faced (315)- - White Blood Count 13.0 High 5.0-10.0 Red Blood Count 4.20 4.00-5.40 Platelets 299 172-450 Hemoglobin 11.2 Hematocrit 36.7 BMP 03/26/2021 [facility] - not interfaced (315)- - Calcium Ser/Plasma Mass/Vol 8.2 Sodium 140 Carbon Dioxide Ser/Plasm 38 Chloride Serum/Plasma 100 Potassium 3.8 Glucose 184 High 83-110 Blood Urea Nitrogen 25 High 7-18 Creatinine 1.03 High 0.6-1.0 G F R >60.0 Laboratory test finding 03/26/2021 [facility] - not interf aced (315)- - Magnesium [...] Not Detected Negative Laboratory test finding 03/25/2021 [facility] - not interf aced (315)- - Thyroid [...] For GFR 0.85 CBC without Differential 03/25/2021 [facility] - not inter faced (315)- - White [...] Calc-sCnc 5.9 -2.0-2.0 CBC without Differential 02/19/2021 [facility] - not inter faced (315)- - White Blood Count 15.6 High 5.0-10.0 Red Blood Count 4.70 4.00-5.40 Platelets 353 172-450 Hemoglobin 12.4 Hematocrit 39.8 BMP 02/19/2021 [facility] - not interfaced (315)- - Calcium Ser/Plasma Mass/Vol 9.0 Sodium 141 Carbon Dioxide Ser/Plasm 43 Chloride Serum/Plasma 95 Potassium 2.9 Glucose 83 83-110 Blood Urea Nitrogen 22 High 7-18 Creatinine 0.87 0.6-1.0 G F R >60.0 Lab Results 02/16/2021 N2N/Direct CCD Impor t Lactic Acid Level 1.5 0.4-2.0 Laboratory test finding 02/16/2021 [facility] - not interf aced (315)- - Thyroid Stimulating Hormone 1.250 CMP 02/16/2021 [facility] - not interfaced (315)- - Albumin Serum/Plasma 3.6 Alt - SGPT 26 Calcium Ser/Plasma Mass/Vol 9.2 Carbon Dioxide Ser/Plasm 31 Chloride Serum/Plasma 100 Alkaline Phosphatase 112 Potassium 4.3 Protein Total 7.4 Sodium 137 Ast - Sgot 11 BUN - Urea Nitrogen 18 Glucose 181 High 83-110 Creatinine For GFR 0.89 CBC without Differential 02/16/2021 [facility] - not inter faced (315)- - White [...] 01/26/2021 N2N/Direct CCD Impor t Troponin I Bld-[facility] 0.00 0.00-0.08 pH BldA 01/26/2021 N2N/Direct [...] 0 Procedures Date Code Description Status 04/21/2021 10233 Office/Outpatient Established Mo d MDM 30-39 Min Completed 04/21/2021 75061 ECG 12-Lead Completed Medical Devices Description No [...]
--- OUTSIDE RECORDS SUMMARY | 2021-06-21 10:07 | CCD ---
Continuity of Care Document (CCD) Created on: 04/30/2021 Corey Jang External Reference #: [id number] : [id number] Sex: Male Author Organization Unknown Address Unknown Phone Unavailable Care Team Providers Care Care Transitions Manager Name Role Phone Uli Arango NP AUTM Arcadio Walls MD AUTM [phone] Chas Louise MD AUTM [phone] Corey Chou DO AUTM [phone] Justice Patton MD AUTM [phone] Problems Active Problems Provider Date Benign hypertensive heart disease without congestive h eart failure Nini Dick, [facility] Onset: 06/16/2011 Dyspnea Arcadio Walls [...] as directed Chas Louise MD 04/20 Ipratropium Popejoy/Albuterol Sulfate 0.5-2.5(3)mg/3ML Solution 1 nebulizer treatment 4 [...] BldC Glucomtr-nc 278 80-115 BMP 03/28/2021 [facility] - not interfaced (315)- - Calcium Ser/Plasma Mass/Vol 8.6 Sodium 140 Carbon Dioxide Ser/Plasm 40 Chloride Serum/Plasma 99 Potassium 3.6 Glucose 200 High 83-110 Blood Urea Nitrogen 19 High 7-18 Creatinine 0.84 0.6-1.0 G F R >60.0 CBC without Differential 03/27/2021 [facility] - not inter faced (315)- - [...] 0.1 0.0-0.2 Laboratory test finding 03/27/2021 [facility] - not interf aced (315)- - Magnesium Level 2.0 1.8-2.4 BMP 03/27/2021 [facility] - not interfaced (315)- - Calcium Ser/Plasma Mass/Vol 9.2 Sodium 139 Carbon Dioxide Ser/Plasm 41 Chloride Serum/Plasma 96 Potassium 3.1 Glucose 234 High 83-110 Blood Urea Nitrogen 21 High 7-18 Creatinine 1.00 0.6-1.0 G F R >60.0 CBC without Differential 03/26/2021 [facility] - not inter faced (315)- - White Blood Count 13.0 High 5.0-10.0 Red Blood Count 4.20 4.00-5.40 Platelets 299 172-450 Hemoglobin 11.2 Hematocrit 36.7 BMP 03/26/2021 [facility] - not interfaced (315)- - Calcium Ser/Plasma Mass/Vol 8.2 Sodium 140 Carbon Dioxide Ser/Plasm 38 Chloride Serum/Plasma 100 Potassium 3.8 Glucose 184 High 83-110 Blood Urea Nitrogen 25 High 7-18 Creatinine 1.03 High 0.6-1.0 G F R >60.0 Laboratory test finding 03/26/2021 [facility] - not interf aced (315)- - [...] Detected Negative Laboratory test finding 03/25/2021 [facility] - not interf aced (315)- - [...] GFR 0.85 CBC without Differential 03/25/2021 [facility] - not inter faced (315)- - [...] 5.9 -2.0-2.0 CBC without Differential 02/19/2021 [facility] - not inter faced (315)- - White Blood Count 15.6 High 5.0-10.0 Red Blood Count 4.70 4.00-5.40 Platelets 353 172-450 Hemoglobin 12.4 Hematocrit 39.8 BMP 02/19/2021 [facility] - not interfaced (315)- - Calcium Ser/Plasma Mass/Vol 9.0 Sodium 141 Carbon Dioxide Ser/Plasm 43 Chloride Serum/Plasma 95 Potassium 2.9 Glucose 83 83-110 Blood Urea Nitrogen 22 High 7-18 Creatinine 0.87 0.6-1.0 G F R >60.0 Lab Results 02/16/2021 N2N/Direct CCD Impor t Lactic Acid Level 1.5 0.4-2.0 Laboratory test finding 02/16/2021 [facility] - not interf aced (315)- - Thyroid Stimulating Hormone 1.250 CMP 02/16/2021 [facility] - not interfaced (315)- - Albumin Serum/Plasma 3.6 Alt - SGPT 26 Calcium Ser/Plasma Mass/Vol 9.2 Carbon Dioxide Ser/Plasm 31 Chloride Serum/Plasma 100 Alkaline Phosphatase 112 Potassium 4.3 Protein Total 7.4 Sodium 137 Ast - Sgot 11 BUN - Urea Nitrogen 18 Glucose 181 High 83-110 Creatinine For GFR 0.89 CBC without Differential 02/16/2021 [facility] - not inter faced (315)- - [...] 01/26/2021 N2N/Direct CCD Impor t Troponin I Bld-[facility] 0.00 0.00-0.08 pH BldA 01/26/2021 [...] 0 Procedures Date Code Description Status 04/21/2021 46308 Office/Outpatient Established Mo d MDM 30-39 Min Completed 04/21/2021 87802 ECG 12-Lead Completed Medical Devices Description No [...]
--- OUTSIDE RECORDS SUMMARY | 2021-06-21 10:08 | CCD | Continuity of Care Document ---
Author Author Corey FLORENCE M.D. 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 Onset: 03/08/2016 Anxiety state Chas Florence M.D. Onset: 03/08/2016 Social History Type Date Description Comments Sex Unknown ETOH Use Occasionally consumes alcohol so cially Tobacco Use Start: Unknown End: Unknown Patient is a former smoker 1 -2 PPD x 25yrs, Quit 2000 Allergies, Adverse Reactions, Alerts Active Allergies Criticality Reaction | Severity Comments [...] 30tabs Chas Florence M.D. 021 Freestyle Ines 2/[place]/Flash Glucose M onitoring System 2Reader Device as directed dm 2 uncontrolled. 1unlaisha Florence M.D. 12/31/2020 Freestyle Ines 2/Sensor/Flash Glucose M onitoring System 2Sensor Misc reapply every 2 weeks dx uncontrolled dm2 6unlaisha Florence M.D. 12/31/2020 Metoprolol Tartrate 25mg Tablets 1 by mouth twice a day 180tabs Chas Florence M.D. Levemir Flextouch 10 0Unit/ML Solution Pen-Inject inject 10 U bid - Then Titrate Upward if possible. 45ml Chas Florence M.D. 09/11/2020 BD Pen Needle/[place]/Ultra -Fine/32G X 4mm 32G X 4 mm Misc 1 times a day 100unlaisha Florence M.D. 09/11 Triamcinolone Acetonide 0.5% Cream apply twice a day as directed - do not overuse, risk of atropy. 45gm Chas Florence M.D. 07/17/2020 Atorvastatin Calcium 10mg Tablets 1 by mouth every day 90tausha Florence M.D. 11/28/2019 Nebulizer Device use as d irected susana Florence M.D. 12/22/2018 Nebulizer Kit/Tubing/Mouthpiece K it use four times a day dx j44.9 susana Florence M.D. 0 12/22/2018 Sildenafil Citrate 20mg Tablets 2-5 tab by mouth 1 hour before intercourse 25tausha Florence M.D. 11/25/2018 Onetouch Ultra 2 w/Device Kit test twice a day and as directed e11.65 susana Florence M.D. 07/29/2018 Onetouch Ultra Blue Strips [...] day as needed Corey Chou DO Ipratropium [place]/Albuterol Sulfate 0.5-2.5(3)mg/3ML Solution 1 vial tid as [...] 6tabs Tan Florence M.D. 12/23/2020 - 12/31/2020 Zithromax 250mg Tablets 2 talbets today and then one daily x 4 6tabs Chas Florence M.D. 09/18 - 12/03/2020 Lasix 20mg Tablets 2 by mouth every day as needed for swelling. 10tabs Chas Florence M.D. 2020 - 03/07/2021 Medications Administered in Office Medication SIG Qnty Indications Ordering Provider Date Covid-19 vaccine, Unspecified Inj ection Unknown 10/09/2020 Covid-19 vaccine, Unspecified Inj ection Unknown 09/15/2020 Administration Of Flu Vaccine Inj ection Chas Florence M.D. 04/26/2018 Immunizations CPT Code Status Date Vaccine Lot # U-Flu Given 04/10/2020 Influenza,Unspecified [id number] Given 04/26/2018 Influenza Virus Vaccine, Quadrivalent ([id number]), Derived From Cell [id number] Vital Signs Date Vital Result Comment 03/10/2021 [...] Note Influenza A/B RSV Covid Amp 03/03/2021 [facility] [address], [place] [id number] [phone] Influenza A Amplification NEGATIVE Normal Negati ve 1 Influenza B Amplification NEGATIVE Normal Negative 2 RSV Amplification NEGATIVE Normal Negative 3 Sars Covid-19 Amplification NEGATIVE Normal Negative 4 CBC With Differential 03/03/2021 [facility] [address], [place] [address] [phone] White Blood Count 14.9 10 High 4.0-10.0 [...] 36.0-66.0 Lymph % 9.5 % Low 24.0-44.0 [place] % 6.7 % Normal 2.0-8.0 Eos % 2.3 % Normal 0.0-3.0 Baso % 0.6 % Normal 0.0-1.0 Immature Granulocyte % 0.7 % Normal 0-3.0 Nucleated Red Blood Cell % 0.0 % Normal 0-0 Neutrophils # 11.9 10 High 1.5-8.5 Lymph # 1.4 10 Low 1.5-5.0 [place] # 1.0 10 High 0.0-0.8 Eos # 0.4 10 Normal 0.0-0.5 Baso # 0.1 10 Normal 0.0-0.2 Cardiac Marker Panel 03/03/2021 [facility] enter [address] [place] [address] [phone] CPK Creatine Phosphokinase 74 U/L Normal 39-30 8 CK-MB Value Mass 2.2 NG/ML Normal <3.6 MB/CK Relative Index 2.97 Normal < Or =4 5 Troponin I < 0.02 NG/ML Normal < 0.10 6 Liver Profile 03/03/2021 [facility] [address] [place] [address] [phone] Ast/Sgot 13 U/L Normal 7-37 Alt/SGPT 23 U/L Normal 12-78 Alkaline Phosphatase 101 U/L Normal 45-117 Bilirubin,Total 0.4 mg/dL Normal 0.2-1.0 Bilirubin,Direct 0.1 mg/dL Normal 0.0-0.2 Total Protein 7.0 GM/DL Normal 6.4-8.2 Albumin 3.3 GM/DL Normal 3.2-5.2 Albumin/Globulin Ratio 0.9 Normal Basic Metabolic Profile 03/03/[address] [id number] [phone] Glucose, Fasting 195 mg/dL High 70-100 Blood [...] mg/dL Low 8.8-10.2 Laboratory test finding 03/03/[address] [address] [phone] NT-Pro BNP 25 pg/mL Normal <125 Thyroxine (T4) 6.9 g/dL Normal 4.5-12.0 Thyroid Stimulating Hormone 1.610 uIU/ML Normal 0.358-3.740 Venous Blood Gas 03/03/[address] [address] [phone] Venous PH 7.358 units Normal 7.330-7.430 Venous Partial Pressure Co2 60.4 mmHg High 38.0-50.0 Venous Partial Pressure O2 34.9 mmHg Normal 30.0-50.0 Venous Total Co2 35.1 mEq/L High 24.0-28.0 Venous Hco3 33.2 mEq/L High 23.0-27.0 Venous Base Excess 5.9 High -2.0-2.0 Venous Standard Hco3 28.9 mEq/L Normal Venous O2 Saturation 61.4 % Normal 60.0-80.0 Venous Blood Gas 02/16/[address] [address] [phone] Venous PH 7.391 units Normal 7.330-7.430 Venous Partial Pressure Co2 51.4 mmHg High 38.0-50.0 Venous Partial Pressure O2 51.8 mmHg High 30.0-50.0 Venous Total Co2 32.1 mEq/L High 24.0-28.0 Venous Hco3 30.5 mEq/L High 23.0-27.0 Venous Base Excess 4.3 High -2.0-2.0 Venous Standard Hco3 28.0 mEq/L Normal Venous O2 Saturation 86.8 % High 60.0-80.0 CBC With Differential 02/16/[address] [address] [phone] White Blood Count 14.4 10 High 4.0-10.0 [...] 36.0-66.0 Lymph % 10.8 % Low 24.0-44.0 [place] % 5.7 % Normal 2.0-8.0 Eos % 3.3 % High 0.0-3.0 Baso % 0.9 % Normal 0.0-1.0 Immature Granulocyte % 0.4 % Normal 0-3.0 Nucleated Red Blood Cell % 0.0 % Normal 0-0 Neutrophils # 11.4 10 High 1.5-8.5 Lymph # 1.6 10 Normal 1.5-5.0 [place] # 0.8 10 Normal 0.0-0.8 Eos # 0.5 10 Normal 0.0-0.5 Baso # 0.1 10 Normal 0.0-0.2 Laboratory test finding 02/16/[address] [address] [phone] Lactic Acid Sepsis Protocol 1.5 mmol/L Normal 0.4- 2.0 8 Cardiac Marker Panel 02/16/2021 [facility] enter [address] [place] [address] [phone] CPK Creatine Phosphokinase 51 U/L Normal 39-30 8 CK-MB Value Mass 1.7 NG/ML Normal <3.6 MB/CK Relative Index 3.33 Normal < Or =4 9 Troponin I < 0.02 NG/ML Normal < 0.10 10 Liver Profile 02/16/2021 [facility] [address] [place] [address] [phone] Ast/Sgot 11 U/L Normal 7-37 Alt/SGPT 26 U/L Normal 12-78 Alkaline Phosphatase 112 U/L Normal 45-117 Bilirubin,Total 0.5 mg/dL Normal 0.2-1.0 Bilirubin,Direct 0.2 mg/dL Normal 0.0-0.2 Total Protein 7.4 GM/DL Normal 6.4-8.2 Albumin 3.6 GM/DL Normal 3.2-5.2 Albumin/Globulin Ratio 0.9 Normal Basic Metabolic Profile 02/16/[address] [address] [phone] Glucose, Fasting 181 mg/dL High 70-100 Blood Urea Nitrogen 18 mg/dL Normal 7-18 Creatinine For GFR 0.89 mg/dL Normal 0.70-1.30 Glomerular Filtration Rate > 60.0 Normal >49 1 1 Sodium Level 137 mEq/L Normal 136-145 Potassium Serum 4.3 mEq/L Normal 3.5-5.1 Chloride Level 100 mEq/L Normal 98-107 Carbon Dioxide Level 31 mEq/L Normal 21-32 Anion Gap 6 mEq/L Low 8-16 Calcium Level 9.2 mg/dL Normal 8.8-10.2 Laboratory test finding 02/16/[address] [address] [phone] NT-Pro BNP 27 pg/mL Normal <125 Thyroxine (T4) 6.6 g/dL Normal 4.5-12.0 Thyroid Stimulating Hormone 1.250 uIU/ML Normal 0.358-3.740 Respiratory Panel 02/16/2021 [facility] [address] [place] [address] [phone] Respiratory Panel This respiratory <SEE NOTE> 12 Laboratory test finding 01/26/2021 [facility] [address] [place] [address] [phone] iSTAT Troponin 0.00 NG/ML Normal 0.00-0.08 Istat ABG 01/26/2021 [facility] [address] [place] [address] [phone] iSTAT pH 7.364 units Normal 7.350-7.450 iSTAT pCO2 56.8 MMHG High 35.0-45.0 iSTAT pO2 77.0 MMHG Low 80-105 iSTAT Tco2 34.0 mmol/L High 23.0-27.0 iSTAT Hco3 32.4 mmol/L High 22.0-26.0 iSTAT Base Excess 7.0 mmol/L High -2.0-3.0 iSTAT sO2 94 % Low 95-98 Istat ABG 01/11/2021 [facility] [address] [place] [address] [phone] iSTAT pH 7.389 units Normal 7.350-7.450 iSTAT pCO2 59.8 MMHG High 35.0-45.0 iSTAT pO2 77.0 MMHG Low 80-105 iSTAT Tco2 38.0 mmol/L High 23.0-27.0 iSTAT Hco3 36.1 mmol/L High 22.0-26.0 iSTAT Base Excess 11.0 mmol/L High -2.0-3.0 iSTAT sO2 95 % Normal 95-98 Complete Blood Count 12/31/2020 [place] [facility] [employer] Transportation Agent: [place] [address] [phone] WBC 18.3 x10*3/UL High 4.1 - 10.9 13 RBC 5.00 x10*6/UL 4.20 - 6.30 Hemoglobin [...] # 16.3 x10*3/UL High 2.0 - 7.8 A1c 12/31/2020 [facility] , Transportation Agent: [place] [address] [phone] Hba1c 8.5 % High <5.7 14 Est Avg Glucose 197 mg/dL High 60 - 110 Comprehensive Chem Profile 12/31/2020 [facility], Transportation Agent: [place] [address] [phone] Glucose 202 mg/dL High 74 - 99 15 BUN 17 mg/dL 7 - 18 Creatinine 0.9 mg/dL 0.6 - 1.3 Sodium 142 mEq/L 136 - 145 Potassium 4.6 mEq/L 3.5 - 5.1 Chloride 102 mEq/L 98 - 107 Carbon Dioxide 35 mEq/L High 21 - 32 16 Calcium 9.2 mg/dL 8.5 - 10.1 Alk. [...] mL/min >60 GFR >= 60 mL/min >60 17 Arterial Blood Gas 11/20/2020 [facility] [address] [place] [address] [phone] ABG pH (Arterial) 7.459 units High 7.350-7.450 ABG Partial Pressure Co2 39.5 mmHg Normal 35.0-45.0 ABG Partial Pressure O2 100.7 mmHg High 75.0-100.0 ABG Total Co2 28.6 mEq/L Normal 23.0-31.0 ABG Hco3 27.4 mEq/L High 22.0-26.0 ABG Base Excess 3.4 High -2.0-2.0 ABG Standard Hco3 27.5 mEq/L High 22.0-26.0 ABG O2 Saturation 98.1 % Normal 95.0-99.0 Respiratory Panel 11/20/2020 [facility] [address] [place] [address] [phone] Respiratory Panel This respiratory <SEE NOTE> 18 CBC With Differential 11/20/2020 [facility] [address] [place] [address] [phone] White Blood Count 12.8 10 High 4.0-10.0 [...] 36.0-66.0 Lymph % 13.9 % Low 24.0-44.0 [place] % 6.4 % Normal 2.0-8.0 Eos % 5.7 % High 0.0-3.0 Baso % 1.1 % High 0.0-1.0 Immature Granulocyte % 0.4 % Normal 0-3.0 Nucleated Red Blood Cell % 0.0 % Normal 0-0 Neutrophils # 9.3 10 High 1.5-8.5 Lymph # 1.8 10 Normal 1.5-5.0 [place] # 0.8 10 Normal 0.0-0.8 Eos # 0.7 10 High 0.0-0.5 Baso # 0.1 10 Normal 0.0-0.2 Cardiac Marker Panel 11/20/2020 [facility] enter [address] [place] [address] [phone] CPK Creatine Phosphokinase 118 U/L Normal 39-30 8 CK-MB Value Mass 3.5 NG/ML Normal <3.6 MB/CK Relative Index 2.97 Normal < Or =4 19 Troponin I < 0.02 NG/ML Normal < 0.10 20 Liver Profile 11/20/2020 [facility] [address] [place] [address] [phone] Ast/Sgot 22 U/L Normal 7-37 Alt/SGPT 25 U/L Normal 12-78 Alkaline Phosphatase 117 U/L Normal 45-117 Bilirubin,Total 0.4 mg/dL Normal 0.2-1.0 Bilirubin,Direct < 0.1 mg/dL Normal 0.0-0.2 Total Protein 7.2 GM/DL Normal 6.4-8.2 Albumin 3.0 GM/DL Low 3.2-5.2 Albumin/Globulin Ratio 0.7 Normal Basic Metabolic Profile 11/20/[address] [address] [phone] Glucose, Fasting 180 mg/dL High 70-100 Blood [...] mg/dL Normal 8.8-10.2 Laboratory test finding 11/20/[address] [address] [phone] NT-Pro BNP 36 pg/mL Normal <125 Complete Blood Count 10/15/2020 [place] [employer] Transportation Agent: [place] [address] [phone] WBC 15.0 x10*3/UL High 4.1 - 10.9 22 RBC 4.76 x10*6/UL 4.20 - 6.30 Hemoglobin 13.1 g/dL 12.0 - 18.0 Hematocrit 39.7 % 37.0 - 51.0 MCV 83.4 fL 80.0 - 97.0 MCH 27.6 pg 26.0 - 32.0 MCHC 33.0 g/dL 31.0 - 38.0 RDW 14.2 % High 11.6 - 13.7 PLT 466 x10*3/UL High 140 - 440 MPV 7.6 FL Low 7.8 - 11.0 Lymph % 13.8 % 10.0 - 58.5 Mid % 4.0 % 1.7 - 9.3 Neut % 82.2 % 37.0 - 92.0 Lymph # 2.0 x10*3/UL 0.6 - 4.1 Mid # 0.7 x10*3/UL High 0.1 - 0.6 Neut # 12.3 x10*3/UL High 2.0 - 7.8 A1c 10/15/2020 [facility] , Transportation Agent: [place] [address] [phone] Hba1c 8.0 % High <5.7 23 Est Avg Glucose 183 mg/dL High 60 - 110 Comprehensive Chem Profile 10/15/2020 [place] [facility], Transportation Agent: [place] [address] [phone] Glucose 95 mg/dL 74 - 99 24 BUN 14 mg/dL 7 - 18 Creatinine 0.8 mg/dL 0.6 - 1.3 Sodium 141 mEq/L 136 - 145 Potassium 4.7 mEq/L 3.5 - 5.1 Chloride 102 mEq/L 98 - 107 Carbon Dioxide 29 mEq/L 21 - 32 Calcium 8.6 mg/dL 8.5 - 10.1 Alk. Phosphatase 102 mg/dL 46 - 116 Total Bilirubin 0.4 mg/dL 0.2 - 1.0 Ast (Sgot) 13 U/L Low 15 - 37 Alt (SGPT) 21 U/L 12 - 78 Albumin 3.2 g/dL Low 3.4 - 5.0 Total Protein 7.1 g/dL 6.4 - 8.2 A/G Ratio 0.82 CALC Low 1.00 - 1.90 GFR >= 60 mL/min >60 GFR >= 60 mL/min >60 25 Laboratory test finding 10/15/2020 [place] [employer] Transportation Agent: [place] [address] [phone] Thyroid Stimulating Hormone 1.08 uIU/mL 0.3 6 - 3.74 1 Negative results do not prec lude [...] pathogens. DISCLAIMER: Testing was performed using the [employer] SARS-CoV-2 test. This test was developed and its performance characteristics determined by [employer]. This test has not been FDA cleared [...] Troponin I Reference Interva l for [employer] LOCI: 99th Percentile= 0.00-0.045 ng/ml Risk Stratification: [...] Little GFR Left ESRD GFR <15 on COUNTER CHECKER 8 Y/N query for Sepsis Lactate Rule: Y 9 DIAGNOSIS CRITERIA MMB ng/ml Relative Index (RI) NON-AMI < or = 5 N/A TELLO ZONE > 5 < or = 4 AMI > 5 > 4 10 Troponin I Reference Interva l for [employer] LOCI: 99th Percentile= 0.00-0.045 ng/ml Risk Stratification: <= 0.10 ng/ml Decreased Risk for Adverse Clinical Events. 0.10-1.50 ng/ml Increased Risk for Adv erse Clinical Events. Evaluation of additional criterion and/or repeat testing in 2-6 hours is suggested to rule out myocardial damage. >= 1.50 ng/ml Indicative of Myocardial Injury. 11 Units are mL/min/1.73 m2 Chronic Kidney Disease Staging per NKF: Stage I & II GFR >=60 Normal to Mildly Decreased Stage III GFR 30-59 Moderately Decreased Stage IV GFR 15-29 Severely Decreased Stage V GFR <15 Very Little GFR Left ESRD GFR <15 on COUNTER CHECKER 12 This respiratory PCR panel d etects Influenza A H1, H3 and 2009 H1 viruses, Influenza B virus, Resp iratory Syncytial Virus, Human metapneumovirus, Parainfluenza virus 1, 2, 3 and 4, Adenovirus, Rhinovirus/Enterovirus, Coronavirus HKU1, NL63, OC43, 229E and SARS-CoV-2 (COVID 19), Bordetella pertussis, Bordetella parapertussis, Mycoplasma pneumoniae and Chlamydia pneumoniae. NEGATIVE by MULTIPLEXED NUCLEIC ACID PCR SARS-CoV-2 (COVID 19) NEGATIVE - SARS-CoV-2 (COVID19) 13 NOTE: RESULT VERIFIED. 14 Lab Result Notes: Pre-Diabetes 5.7 - 6.4 % Diabetes = or > 6.5% 15 100-125 mg/dL PRE-DIABET ES/FASTING >126 mg/dL DIABETES/FASTING 16 NOTE: RESULT VERIFIED. 17 CHRONIC KIDNEY DISEASE STAGI NG PER NKF STAGE I & II GFR >= 60 NORMAL TO MILDLY DECREASED STAGE III GFR 30-59 MODERATELY DECREASED STAGE IV GFR 15-29 SEVERELY DECREASED STAGE V GFR <15 VERY LITTLE GFR LEFT ESRD GFR <15 ON COUNTER CHECKER 18 This respiratory PCR panel d etects [...] Troponin I Reference Interva l for [employer] LOCI: 99th Percentile= 0.00-0.045 ng/ml Risk Stratification: [...] Little GFR Left ESRD GFR <15 on COUNTER CHECKER 22 NOTE: CBC VERIFIED 23 Lab Result Notes: Pre-Diabetes 5.7 - 6.4 % Diabetes = or > 6.5% 24 100-125 mg/dL PRE-DIABET ES/FASTING >126 mg/dL DIABETES/FASTING 25 CHRONIC KIDNEY DISEASE STAGI NG PER NKF STAGE I & II GFR >= 60 NORMAL TO MILDLY DECREASED STAGE III GFR 30-59 MODERATELY DECREASED STAGE IV GFR 15-29 SEVERELY DECREASED STAGE V GFR <15 VERY LITTLE GFR LEFT ESRD GFR <15 ON COUNTER CHECKER Procedures Date Code Description Status 03/10/2021 17670 Office/Outpatient Established Lo w MDM 20-29 Min Completed 01/22/2021 64772 Trans Care SRV W/I 14D Of DC, Co mm W/I 2 Dys Med Rec Completed 12/31/2020 38596 Office/Outpatient Established Mo d MDM 30-39 Min Completed 12/03/2020 91662 Trans Care SRV W/I 14D Of DC, Co mm W/I 2 Dys Med Rec Completed 10/15/2020 04144 Office/Outpatient Established Mo d MDM 30-39 Min Completed 02/28/2018 23192482 Colonoscopy Completed Medical Devices Description No Information Available Encounters Type Date Location Provider Dx Diagnosis Office Visit 03/10/2021 10[facility]a [place] [facility] J44.9 Chronic obstructive pulmonary disease, u nspecified R09.02 Hypoxemia I50.32 Chronic diastolic (congestiv e) heart failure E11.40 Type 2 diabetes mellitus wit h diabetic neuropathy, unsp Z79.4 care home (current) use of i nsulin R60.9 Edema, unspecified R26.89 Other abnormalities of gait and mobility Office Visit 01/22/2021 11:30a [place] [facility] M.[facility] J44.1 Chronic obstructive pulmonary disease w (acute) exacerbation R09.02 Hypoxemia R60.9 Edema, unspecified G47.33 Obstructive sleep apnea (edmond lt) (pediatric) E11.65 Type 2 diabetes mellitus wit h hyperglycemia E11.40 Type 2 diabetes mellitus wit h diabetic neuropathy, unsp Z79.4 technician terminal and repeater (current) use of i nsulin Z91.120 Pt intentl undrdose of meds regimen due to financl hardship F43.21 Adjustment disorder with dep ressed mood G47.00 Insomnia, unspecified R26.89 Other abnormalities of gait and mobility Office Visit 12/31/2020 10:00a [place] [facility] M.[facility] J44.1 Chronic obstructive pulmonary disease w (acute) exacerbation R09.02 Hypoxemia R60.9 Edema, unspecified G47.33 Obstructive sleep apnea (edmond lt) (pediatric) E11.65 Type 2 diabetes mellitus wit h hyperglycemia E11.40 Type 2 diabetes mellitus wit h diabetic neuropathy, unsp Z79.4 technician terminal and repeater (current) use of i nsulin F41.9 Anxiety disorder, unspecifie d G89.29 Other chronic pain J43.1 Panlobular emphysema E78.5 Hyperlipidemia, unspecified Office Visit 12/03/2020 9:30a [facility] J44.1 Chronic obstructive pulmonary disease w (acute) exacerbation R09.02 Hypoxemia R60.9 Edema, unspecified G47.33 Obstructive sleep apnea (edmond lt) (pediatric) E11.65 Type 2 diabetes mellitus wit h hyperglycemia E11.40 Type 2 diabetes mellitus wit h diabetic neuropathy, unsp F41.9 Anxiety disorder, unspecifie d G89.29 Other chronic pain Office Visit 10/15/2020 2:30p [facility] J44.1 Chronic obstructive pulmonary disease w (acute) exacerbation E11.65 Type 2 diabetes mellitus wit h hyperglycemia G47.33 Obstructive sleep apnea (edmond lt) (pediatric) G89.29 Other chronic pain G60.9 Hereditary and idiopathic ne uropathy, unspecified F41.9 Anxiety disorder, unspecifie d J43.1 Panlobular emphysema E78.5 Hyperlipidemia, unspecified N40.0 Benign prostatic hyperplasia without lower urinry tract symp R60.9 Edema, unspecified Assessments Date Code Description Provider 03/10/2021 J44.9 Chronic obstructive pulmonary di sease, unspecified Chas Florence M.D. 03/10/2021 R09.02 Hypoxemia Chas Florence M.D. 03/10/2021 I50.32 Chronic diastolic (congestive) h eart failure Chas Florence M.D. 03/10/2021 E11.40 Type 2 diabetes sharda itus with diabetic neuropathy, unspecified Chas Florence M.D. 03/10/2021 Z79.4 care home (current) use of insul in Chas Florence [...] neuropathy, unspecified Chas Florence M.D. 01/22/2021 Z79.4 technician terminal and repeater (current) use of insul in Chas Florence [...] Chas Florence M.D. 12/31/2020 R60.9 Edema, unspecified Chsa hallman M.D. 12/31/2020 G47.33 Obstructive sleep apnea (adult) (pediatric) Chas Florence M.D. 12/31/2020 E11.65 Type 2 diabetes mellitus with hy perglycemia Chas Florence M.D. 12/31/2020 E11.40 Type 2 diabetes sharda itus with diabetic neuropathy, unspecified Chas Florence M.D. 12/31/2020 Z79.4 technician terminal and repeater (current) use of insul in Chas Florence M.D. 12/31/2020 F41.9 Anxiety disorder, unspecified Tan chula Victoriano Florence M.D. 12/31/2020 G89.29 Other chronic pain [...] G89.29 Other chronic pain Chas hallman M.D. 10/15/2020 J44.1 Chronic obstructive pulmonary disease with (acute) exacerbation Chas Florence M.D. 10/15/2020 E11.65 Type 2 diabetes mellitus with hy perglycemia Chas Florence M.D. 10/15/2020 G47.33 Obstructive sleep apnea (adult) (pediatric) Chas Florence M.D. 10/15/2020 G89.29 Other chronic pain Chas hallman M.D. 10/15/2020 G60.9 Hereditary and idiopathic neurop athy, unspecified Chas Florence M.D. 10/15/2020 F41.9 Anxiety disorder, unspecified Tan Florence M.D. 10/15/2020 J43.1 Panlobular emphysema Chas simpson M.D. 10/15/2020 E78.5 Hyperlipidemia, unspecified Moises Florence M.D. 10/15/2020 N40.0 Benign prostatic hyp erplasia without lower urinary tract symptoms Chas Florence M.D. 10/15/2020 R60.9 Edema, unspecified Chas hallman M.D. Plan of Treatment Future Appointment(s):* 05/16/2021 3:00 pm - [facility]as [facility] at [facility] 12/03/2020 - Chas Florence M.D.* J44.1 [...] at home. He will follow up with [facility] appropriately.7. Anxiety disorder: Doing well. Continue duloxetine.8. Other chronic pain: Atypical. Appears to be stable. He will continue working with [facility] and let me know [...]
--- OUTSIDE RECORDS SUMMARY | 2021-06-21 10:08 | CCD | Continuity of Care Document ---
Author Author Corey FLORENCE M.D. Organization Unknown Address [address] [facility] [address] [place] [address] Phone [phone] Care Team Providers Care In Home Nanny Name Role Phone Chas Florence MD AUTM [phone] Corey Chou DO AUTM [phone] Justice Patton MD AUTM [phone] [facility] AUTM [phone] [facility] AUTM [phone] Problems Active Problems Provider Date Rosacea Chas [...] 30tabs Chas Florence M.D. 021 Freestyle Ines 2/[place]/Flash Glucose M onitoring System 2Reader Device as [...] day as needed Corey Chou DO Ipratropium [place]/Albuterol Sulfate 0.5-2.5(3)mg/3ML Solution 1 vial tid as [...] Vaccine Lot # U-Flu Given 04/10/2020 Influenza,Unspecified [id number] Given 04/26/2018 Influenza Virus Vaccine, Quadrivalent ([id number]), Derived From Cell [id number] Vital Signs Date Vital Result Comment 03/10/2021 [...] Note Influenza A/B RSV Covid Amp 03/03/2021 [facility] [address] [place], [place] [id number] [phone] Influenza A Amplification NEGATIVE Normal Negati ve 1 Influenza B Amplification NEGATIVE Normal Negative 2 RSV Amplification NEGATIVE Normal Negative 3 Sars Covid-19 Amplification NEGATIVE Normal Negative 4 CBC With Differential 03/03/2021 [facility] [address] [place], [place] [id number] [phone] White Blood Count 14.9 10 High 4.0-10.0 [...] 36.0-66.0 Lymph % 9.5 % Low 24.0-44.0 [place] % 6.7 % Normal 2.0-8.0 Eos % 2.3 % Normal 0.0-3.0 Baso % 0.6 % Normal 0.0-1.0 Immature Granulocyte % 0.7 % Normal 0-3.0 Nucleated Red Blood Cell % 0.0 % Normal 0-0 Neutrophils # 11.9 10 High 1.5-8.5 Lymph # 1.4 10 Low 1.5-5.0 [place] # 1.0 10 High 0.0-0.8 Eos # 0.4 10 Normal 0.0-0.5 Baso # 0.1 10 Normal 0.0-0.2 Cardiac Marker Panel 03/03/2021 [facility] enter [address] [place] [address] [phone] CPK Creatine Phosphokinase 74 U/L Normal 39-30 8 CK-MB Value Mass 2.2 NG/ML Normal <3.6 MB/CK Relative Index 2.97 Normal < Or =4 5 Troponin I < 0.02 NG/ML Normal < 0.10 6 Liver Profile 03/03/2021 [facility] nter [address] [place] [address] [phone] Ast/Sgot 13 U/L Normal 7-37 Alt/SGPT 23 U/L Normal 12-78 Alkaline Phosphatase 101 U/L Normal 45-117 Bilirubin,Total 0.4 mg/dL Normal 0.2-1.0 Bilirubin,Direct 0.1 mg/dL Normal 0.0-0.2 Total Protein 7.0 GM/DL Normal 6.4-8.2 Albumin 3.3 GM/DL Normal 3.2-5.2 Albumin/Globulin Ratio 0.9 Normal Basic Metabolic Profile 03/03/[address] [id number] [phone] Glucose, Fasting 195 mg/dL High 70-100 Blood [...] mg/dL Low 8.8-10.2 Laboratory test finding 03/03/[address] [address] [phone] NT-Pro BNP 25 pg/mL Normal <125 Thyroxine (T4) 6.9 g/dL Normal 4.5-12.0 Thyroid Stimulating Hormone 1.610 uIU/ML Normal 0.358-3.740 Venous Blood Gas 03/03/[address] [id number] [phone] Venous PH 7.358 units Normal 7.330-7.430 Venous Partial Pressure Co2 60.4 mmHg High 38.0-50.0 Venous Partial Pressure O2 34.9 mmHg Normal 30.0-50.0 Venous Total Co2 35.1 mEq/L High 24.0-28.0 Venous Hco3 33.2 mEq/L High 23.0-27.0 Venous Base Excess 5.9 High -2.0-2.0 Venous Standard Hco3 28.9 mEq/L Normal Venous O2 Saturation 61.4 % Normal 60.0-80.0 Venous Blood Gas 02/16/[address] [address] [phone] Venous PH 7.391 units Normal 7.330-7.430 Venous Partial Pressure Co2 51.4 mmHg High 38.0-50.0 Venous Partial Pressure O2 51.8 mmHg High 30.0-50.0 Venous Total Co2 32.1 mEq/L High 24.0-28.0 Venous Hco3 30.5 mEq/L High 23.0-27.0 Venous Base Excess 4.3 High -2.0-2.0 Venous Standard Hco3 28.0 mEq/L Normal Venous O2 Saturation 86.8 % High 60.0-80.0 CBC With Differential 02/16/[address] [address] [phone] White Blood Count 14.4 10 High 4.0-10.0 [...] 36.0-66.0 Lymph % 10.8 % Low 24.0-44.0 [place] % 5.7 % Normal 2.0-8.0 Eos % 3.3 % High 0.0-3.0 Baso % 0.9 % Normal 0.0-1.0 Immature Granulocyte % 0.4 % Normal 0-3.0 Nucleated Red Blood Cell % 0.0 % Normal 0-0 Neutrophils # 11.4 10 High 1.5-8.5 Lymph # 1.6 10 Normal 1.5-5.0 [place] # 0.8 10 Normal 0.0-0.8 Eos # 0.5 10 Normal 0.0-0.5 Baso # 0.1 10 Normal 0.0-0.2 Laboratory test finding 02/16/[address] [address] [phone] Lactic Acid Sepsis Protocol 1.5 mmol/L Normal 0.4- 2.0 8 Cardiac Marker Panel 02/16/2021 [facility] enter [address] [place] [address] [phone] CPK Creatine Phosphokinase 51 U/L Normal 39-30 8 CK-MB Value Mass 1.7 NG/ML Normal <3.6 MB/CK Relative Index 3.33 Normal < Or =4 9 Troponin I < 0.02 NG/ML Normal < 0.10 10 Liver Profile 02/16/2021 [facility] nter [address] [place] [address] [phone] Ast/Sgot 11 U/L Normal 7-37 Alt/SGPT 26 U/L Normal 12-78 Alkaline Phosphatase 112 U/L Normal 45-117 Bilirubin,Total 0.5 mg/dL Normal 0.2-1.0 Bilirubin,Direct 0.2 mg/dL Normal 0.0-0.2 Total Protein 7.4 GM/DL Normal 6.4-8.2 Albumin 3.6 GM/DL Normal 3.2-5.2 Albumin/Globulin Ratio 0.9 Normal Basic Metabolic Profile 02/16/[address] [address] [phone] Glucose, Fasting 181 mg/dL High 70-100 Blood [...] mg/dL Normal 8.8-10.2 Laboratory test finding 02/16/[address] [address] [phone] NT-Pro BNP 27 pg/mL Normal <125 Thyroxine (T4) 6.6 g/dL Normal 4.5-12.0 Thyroid Stimulating Hormone 1.250 uIU/ML Normal 0.358-3.740 Respiratory Panel 02/16/2021 [facility] nter [address] [place] [address] [phone] Respiratory Panel This respiratory <SEE NOTE> 12 Laboratory test finding 01/26/2021 [facility] [address] [place] [address] [phone] iSTAT Troponin 0.00 NG/ML Normal 0.00-0.08 Istat ABG 01/26/2021 [facility] nter [address] [place] [address] [phone] iSTAT pH 7.364 units Normal 7.350-7.450 iSTAT pCO2 56.8 MMHG High 35.0-45.0 iSTAT pO2 77.0 MMHG Low 80-105 iSTAT Tco2 34.0 mmol/L High 23.0-27.0 iSTAT Hco3 32.4 mmol/L High 22.0-26.0 iSTAT Base Excess 7.0 mmol/L High -2.0-3.0 iSTAT sO2 94 % Low 95-98 Istat ABG 01/11/2021 [facility] nter [address] [place] [address] [phone] iSTAT pH 7.389 units Normal 7.350-7.450 iSTAT pCO2 59.8 MMHG High 35.0-45.0 iSTAT pO2 77.0 MMHG Low 80-105 iSTAT Tco2 38.0 mmol/L High 23.0-27.0 iSTAT Hco3 36.1 mmol/L High 22.0-26.0 iSTAT Base Excess 11.0 mmol/L High -2.0-3.0 iSTAT sO2 95 % Normal 95-98 Complete Blood Count 12/31/2020 [facility] [employer]: [place] [address] [phone] WBC 18.3 x10*3/UL High 4.1 - 10.9 [...] x10*3/UL High 2.0 - 7.8 A1c 12/31/2020 [facility] , [employer] [employer]: [place] [address] [phone] Hba1c 8.5 % High <5.7 14 Est Avg Glucose 197 mg/dL High 60 - 110 Comprehensive Chem Profile 12/31/2020 [facility], [facility] [employer]: [place] [address] [phone] Glucose 202 mg/dL High 74 - 99 [...] mL/min >60 17 Arterial Blood Gas 11/20/2020 [facility] nter [address] [place] [address] [phone] ABG pH (Arterial) 7.459 units High 7.350-7.450 ABG Partial Pressure Co2 39.5 mmHg Normal 35.0-45.0 ABG Partial Pressure O2 100.7 mmHg High 75.0-100.0 ABG Total Co2 28.6 mEq/L Normal 23.0-31.0 ABG Hco3 27.4 mEq/L High 22.0-26.0 ABG Base Excess 3.4 High -2.0-2.0 ABG Standard Hco3 27.5 mEq/L High 22.0-26.0 ABG O2 Saturation 98.1 % Normal 95.0-99.0 Respiratory Panel 11/20/2020 [facility] n[facility] [address] [place] [address] [phone] Respiratory Panel This respiratory <SEE NOTE> 18 CBC With Differential 11/20/2020 [facility] [address] [place] [address] [phone] White Blood Count 12.8 10 High 4.0-10.0 [...] 36.0-66.0 Lymph % 13.9 % Low 24.0-44.0 [place] % 6.4 % Normal 2.0-8.0 Eos % 5.7 % High 0.0-3.0 Baso % 1.1 % High 0.0-1.0 Immature Granulocyte % 0.4 % Normal 0-3.0 Nucleated Red Blood Cell % 0.0 % Normal 0-0 Neutrophils # 9.3 10 High 1.5-8.5 Lymph # 1.8 10 Normal 1.5-5.0 [place] # 0.8 10 Normal 0.0-0.8 Eos # 0.7 10 High 0.0-0.5 Baso # 0.1 10 Normal 0.0-0.2 Cardiac Marker Panel 11/20/2020 [facility] enter [address] [place] [address] [phone] CPK Creatine Phosphokinase 118 U/L Normal 39-30 8 CK-MB Value Mass 3.5 NG/ML Normal <3.6 MB/CK Relative Index 2.97 Normal < Or =4 19 Troponin I < 0.02 NG/ML Normal < 0.10 20 Liver Profile 11/20/2020 [facility] nter [address] [place] [address] [phone] Ast/Sgot 22 U/L Normal 7-37 Alt/SGPT 25 U/L Normal 12-78 Alkaline Phosphatase 117 U/L Normal 45-117 Bilirubin,Total 0.4 mg/dL Normal 0.2-1.0 Bilirubin,Direct < 0.1 mg/dL Normal 0.0-0.2 Total Protein 7.2 GM/DL Normal 6.4-8.2 Albumin 3.0 GM/DL Low 3.2-5.2 Albumin/Globulin Ratio 0.7 Normal Basic Metabolic Profile 11/20/[address] [address] [phone] Glucose, Fasting 180 mg/dL High 70-100 Blood [...] mg/dL Normal 8.8-10.2 Laboratory test finding 11/20/[address] [address] [phone] NT-Pro BNP 36 pg/mL Normal <125 Complete Blood Count 10/15/2020 [facility] [employer]: [place] [address] [phone] WBC 15.0 x10*3/UL High 4.1 - 10.9 [...] x10*3/UL High 2.0 - 7.8 A1c 10/15/2020 [facility] , [employer] [employer]: [place] [address] [phone] Hba1c 8.0 % High <5.7 23 Est Avg Glucose 183 mg/dL High 60 - 110 Comprehensive Chem Profile 10/15/2020 [facility] [employer]: [place] [address] [phone] Glucose 95 mg/dL 74 - 99 24 [...] mL/min >60 25 Laboratory test finding 10/15/2020 [facility] [employer] [employer]: [place] [address] [phone] Thyroid Stimulating Hormone 1.08 uIU/mL 0.3 6 [...] pathogens. DISCLAIMER: Testing was performed using the [employer] SARS-CoV-2 test. This test was developed and its performance characteristics determined by [employer]. This test has not been FDA cleared [...] Troponin I Reference Interva l for Siemens Alexander LOCI: 99th Percentile= 0.00-0.045 ng/ml Risk Stratification: [...] Little GFR Left ESRD GFR <15 on SHIP PILOT DISPATCHER 8 Y/N query for Sepsis Lactate Rule: Y 9 DIAGNOSIS CRITERIA MMB ng/ml Relative Index (RI) NON-AMI < or = 5 N/A TELLO ZONE > 5 < or = 4 AMI > 5 > 4 10 Troponin I Reference Interva l for Siemens Alexander LOCI: 99th Percentile= 0.00-0.045 ng/ml Risk Stratification: [...] Little GFR Left ESRD GFR <15 on SHIP PILOT DISPATCHER 12 This respiratory PCR panel d etects [...] LITTLE GFR LEFT ESRD GFR <15 ON SHIP PILOT DISPATCHER 18 This respiratory PCR panel d etects [...] Troponin I Reference Interva l for Siemens Liztic LOCI: 99th Percentile= 0.00-0.045 ng/ml Risk Stratification: [...] Little GFR Left ESRD GFR <15 on SHIP PILOT DISPATCHER 22 NOTE: CBC VERIFIED 23 Lab Result [...] LITTLE GFR LEFT ESRD GFR <15 ON SHIP PILOT DISPATCHER Procedures Date Code Description Status 03/10/2021 48887 Office/Outpatient Established Lo w MDM 20-29 Min Completed 01/22/2021 88837 Trans Care SRV W/I 14D Of DC, Co mm W/I 2 Dys Med Rec Completed 12/31/2020 73222 Office/Outpatient Established Mo d MDM 30-39 Min Completed 12/03/2020 09274 Trans Care SRV W/I 14D Of DC, Co mm W/I 2 Dys Med Rec Completed 10/15/2020 02017 Office/Outpatient Established Mo d MDM 30-39 Min Completed 02/28/2018 [id number] Colonoscopy Completed Medical Devices Description No Information Available Encounters Type Date Location Provider Dx Diagnosis Office Visit 03/10/2021 10[facility] J44.9 Chronic obstructive pulmonary disease, u nspecified R09.02 Hypoxemia I50.32 Chronic diastolic (congestiv e) heart failure E11.40 Type 2 diabetes mellitus wit h diabetic neuropathy, unsp Z79.4 halfway (current) use of i nsulin R60.9 Edema, unspecified R26.89 Other abnormalities of gait and mobility Office Visit 01/22/2021 11:30a [facility] 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 J44.1 Chronic obstructive pulmonary disease w (acute) exacerbation R09.02 Hypoxemia R60.9 Edema, unspecified G47.33 Obstructive sleep apnea (edmond lt) (pediatric) E11.65 Type 2 diabetes mellitus wit h hyperglycemia E11.40 Type 2 diabetes mellitus wit h diabetic neuropathy, unsp F41.9 Anxiety disorder, unspecifie d G89.29 Other chronic pain Office Visit 10/15/2020 2:30p [facility] M.[facility] J44.1 Chronic obstructive [...] neuropathy, unspecified Chas Florence M.D. 03/10/2021 Z79.4 halfway (current) use of insul in Chas Florence [...] neuropathy, unspecified Chas Florence M.D. 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 12/31/2020 Z79.4 terminal press operator (current) use of insul in Chas Florence [...] 3:00 pm - [facility] 12/03/2020 - Chas Florence M.D.* J44.1 [...]
--- OUTSIDE RECORDS SUMMARY | 2021-06-21 10:08 | CCD ---
Continuity of Care Document (CCD) Created on: 04/21/2021 Laine Corey Michael External Reference #: [id number] : [id number] Sex: Male Author Author Corey TAN PA Organization Unknown Address [address] [place] [address], [place] [address] Phone [phone] Care Team Providers Care Wireline Field Operator Name Role Phone Uli Arango NP AUTM Arcadio Walls MD AUTM [phone] Chas Louise MD AUTM [phone] Corey Chou DO AUTM [phone] Justice Patton MD AUTM [phone] Problems Active Problems Provider Date Benign hypertensive heart disease without congestive h eart failure Nini iDck, DIE INSPECTOR- Onset: 06/16/2011 Dyspnea Arcadio Walls MD Onset: 05/04/2019 Electrocardiogram abnormal Arcadio Walls MD Onset: 2018 Chronic obstructive lung disease Arcadio Walls MD Onset: 05/04/2019 Coronary arteriosclerosis Arcadio Walls MD Onset: 019 Dietary management surveillance Arcadio Walls MD Onset: 1 Edema Arcadio Walls MD Onset: 05/04/2019 Heart murmur Arcadoi Walls MD Onset: 05/04/2019 Obstructive sleep apnea [...] Use Regularly uses Marijuana Smoking Status Reviewed: 07/14/19 Patient is a former smoker St opped [...] night at bedtime Chas Louise MD 04/20/20 21 Epipen 2-Shashi 0.3mg/0 .3ML Solution Auto-Inject inject for allergic reactions as directed Chas Louise MD 04/20/2021 Ipratropium [place]/Albuterol Sulfate 0.5-2.5(3)mg/3ML Solution 1 nebulizer treatment 4 [...] 70 inches 5'10" Heart Rate 91 /min 07/14/2019 8:58am Weight 268.00 lb Home Weight 265lb Height 70 inches 5'10" BMI (Body Mass Index) 38.4 kg/m2 Heart Rate 66 /min BP Systolic Sitting 122 mmHg large cuff, Ra BP Diastolic Sitting 72 mmHg large cuff, Ra Results Test Acquired Date Facility Test Result H/L Range Note Laboratory test finding 03/28/2021 [facility] - not interf aced (315)- - Magnesium Level 2.0 1.8-2.4 BMP 03/28/2021 [facility] - not interfaced (315)- - Calcium Ser/Plasma Mass/Vol 8.6 Sodium 140 Carbon Dioxide Ser/Plasm 40 Chloride Serum/Plasma 99 Potassium 3.6 Glucose 200 High 83-110 Blood Urea Nitrogen 19 High 7-18 Creatinine 0.84 0.6-1.0 G F R >60.0 CBC without Differential 03/27/2021 [facility] - not inter faced (315)- - White Blood Count 9.8 5.0-10.0 Red Blood Count 4.64 4.00-5.40 Platelets 314 172-450 Hemoglobin 12.4 Hematocrit 40.6 BMP 03/27/2021 [facility] - not interfaced (315)- - Calcium Ser/Plasma Mass/Vol 9.2 Sodium 139 Carbon Dioxide Ser/Plasm 41 Chloride Serum/Plasma 96 Potassium 3.1 Glucose 234 High 83-110 Blood Urea Nitrogen 21 High 7-18 Creatinine 1.00 0.6-1.0 G F R >60.0 Laboratory test finding 03/27/2021 [facility] - not interf aced (315)- - Magnesium Level 2.0 1.8-2.4 CBC without Differential 03/26/2021 [facility] - not inter faced (315)- - White Blood Count 13.0 High 5.0-10.0 Red Blood Count 4.20 4.00-5.40 Platelets 299 172-450 Hemoglobin 11.2 Hematocrit 36.7 BMP 03/26/2021 [facility] - not interfaced (315)- - Calcium Ser/Plasma Mass/Vol 8.2 Sodium 140 Carbon Dioxide Ser/Plasm 38 Chloride Serum/Plasma 100 Potassium 3.8 Glucose 184 High 83-110 Blood Urea Nitrogen 25 High 7-18 Creatinine 1.03 High 0.6-1.0 G F R >60.0 Laboratory test finding 03/26/2021 [facility] - not interf aced (315)- - Magnesium Level 2.0 1.8-2.4 CBC without Differential 03/25/2021 [facility] - not inter faced (315)- - White Blood Count 12.6 High 5.0-10.0 Red Blood Count 4.33 4.00-5.40 Platelets 288 172-450 Hemoglobin 11.5 Hematocrit 36.8 Laboratory test finding 03/25/2021 [facility] - not interf aced (315)- - Thyroid Stimulating Hormone 0.307 CMP 03/25/2021 [facility] - not interfaced (315)- - Albumin Serum/Plasma 2.6 Alt - SGPT 19 Calcium Ser/Plasma Mass/Vol 8.6 Carbon Dioxide Ser/Plasm 34 Chloride Serum/Plasma 100 Alkaline Phosphatase 90 Potassium 4.7 Protein Total 6.5 Sodium 137 Ast - Sgot 9 BUN - Urea Nitrogen 17 Glucose 284 High 83-110 Creatinine For GFR 0.85 CBC without Differential 03/24/2021 [facility] - not inter faced (315)- - White Blood Count 13.4 High 5.0-10.0 Red Blood Count 4.50 4.00-5.40 Platelets 294 172-450 Hemoglobin 12.1 Hematocrit 38.6 CBC without Differential 02/19/2021 [facility] - not inter faced (315)- - White Blood Count 15.6 High 5.0-10.0 Red Blood Count 4.70 4.00-5.40 Platelets 353 172-450 Hemoglobin 12.4 Hematocrit 39.8 BMP 02/19/2021 [facility] - not interfaced (315)- - Calcium Ser/Plasma Mass/Vol 9.0 Sodium 141 Carbon Dioxide Ser/Plasm 43 Chloride Serum/Plasma 95 Potassium 2.9 Glucose 83 83-110 Blood Urea Nitrogen 22 High 7-18 Creatinine 0.87 0.6-1.0 G F R >60.0 CBC without Differential 02/16/2021 [facility] - not inter faced (315)- - White Blood Count 14.4 High 5.0-10.0 Red Blood Count 5.40 4.00-5.40 Platelets 331 172-450 Hemoglobin 14.0 Hematocrit 46.2 CMP 02/16/2021 [facility] - not interfaced (315)- - Albumin Serum/Plasma 3.6 Alt - SGPT 26 Calcium Ser/Plasma Mass/Vol 9.2 Carbon Dioxide Ser/Plasm 31 Chloride Serum/Plasma 100 Alkaline Phosphatase 112 Potassium 4.3 Protein Total 7.4 Sodium 137 Ast - Sgot 11 BUN - Urea Nitrogen 18 Glucose 181 High 83-110 Creatinine For GFR 0.89 Laboratory test finding 02/16/2021 [facility] - not interf aced (315)- - Thyroid Stimulating Hormone 1.250 Procedures Date Code Description Status 04/21/2021 27056 Office/Outpatient Established Mo d MDM 30-39 Min Completed 04/21/2021 71347 ECG 12-Lead Completed Medical Devices Description No Information Available Encounters Type Date Location Provider Dx Diagnosis Office Visit 04/21/2021 1:30p Main Office CLAU Cleaning I50 .32 Chronic diastolic (congestive) heart failure I11.0 Hypertensive heart disease w ith heart failure I35.0 Nonrheumatic aortic (valve) stenosis G47.33 Obstructive sleep apnea (edmond lt) (pediatric) J44.9 Chronic obstructive pulmonar y disease, unspecified R94.31 Abnormal electrocardiogram [ ECG] [EKG] E66.8 Other obesity Z71.3 Dietary counseling and surve illance Assessments Date Code Description Provider 04/21/2021 I50.32 Chronic diastolic (congestive) h eart failure CLAU Cleaning 04/21/2021 I11.0 Hypertensive heart disease with heart [...] NT Probnp QN Ser/Plas, Ordered: 04/21/21 * I11.0 Hypertensive heart disease with heart failure* Recommendations:* Continue Advised patient to monitor blood pressures at home and to alert our office with readings >140/>90 * I35.0 Nonrheumatic aortic (valve) stenosis * G47.33 Obstructive sleep apnea (adult) (pediatric)* Recommendations:* Reinforced the consistent use of therapy will assist in blood pressure reduction and promote nocturnal blood pressure dipping patterns. Negative effects of hypoxia during sleep were reviewed including impaired daytime cognition and level of alertness. * J44.9 Chronic obstructive pulmonary disease, unspecified * R94.31 Abnormal electrocardiogram [ECG] [EKG]* Recommendations:* [...]
--- OUTSIDE RECORDS SUMMARY | 2021-06-21 10:10 | CCD ---
Author Author [facility] Organization [facility] Address Unknown Phone Unavailable Care Team Providers Care Director Market Research Name Role Phone Alec Louise MD Unavailable Unavailable Alec Louise [...] Unavailable Unavailable Alec Louise MD Unavailable Unavailable Aelc Louise MD Unavailable Unavailable Alec Louise MD [...] Unavailable Unavailable Alec Louise MD Unavailable Unavailable REINDL, GENIE ALEJANDRE Unavailable [...] Unavailable Unavailable REINDL, GENIE ALEJANDRE Unavailable Unavailable BRITNEY, L RACHAEL PA Unavailable Unavailable BRITNEY, L RACHAEL PA Unavailable Unavailable BRITNEY, L RACHAEL PA Unavailable Unavailable BRITNEY, L RACHAEL PA Unavailable Unavailable BRITNEY, L RACHAEL PA Unavailable Unavailable BRITNEY, L RACHAEL PA Unavailable Unavailable BRITNEY, L RACHAEL PA Unavailable Unavailable BRITNEY, L RACHAEL PA Unavailable Unavailable BRITNEY, L RACHAEL PA Unavailable Unavailable BRITNEY, L RACHAEL PA Unavailable Unavailable BRITNEY, L RACHAEL PA Unavailable Unavailable BRITNEY, L RACHAEL PA Unavailable Unavailable BRITNEY, L RACHAEL PA Unavailable Unavailable BRITNEY, L RACHAEL PA Unavailable Unavailable BRITNEY, L RACHAEL PA Unavailable Unavailable BRITNEY, L RACHAEL PA Unavailable Unavailable Rechlin, P Genie DO Unavailable [...] Unavailable Rechlin, P Genie DO Unavailable Unavailable Re-disclosure Warning The records that [...] is protected by Article 27-F of the [facility] Public Health law. If you continue you may have access to information: Regarding HIV / AIDS; Provided by facilities licensed or operated by the [facility] Office of Mental Health; or Provided by the [facility] Office for People With Developmental Disabilities. If such information is present, then the following [facility] mandated warning applies: This information has [...] law may result in a fine or snf sentence or both. A general authorization for the release of medical or other information is NOT sufficient authorization for further disc losure. 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 several relative m others side Encounters Encounter Providers Location Date Indications Data Source(s ) Outpatient Attender: Genie Bashir/Demarcus/Tom/Kel ndjames 05/07/2021 10:00:00 AM EDT [facility] ([facility] ) Outpatient Attender: RACHAEL OLGUIN Main Office 04/21/2021 0 1:30:00 PM EDT [facility] ([facility]) Outpatient Attender: Chas Zuleta 03/10 10:30:00 AM EDT [facility] ([facility] ) Outpatient Attender: Chas Zuleta 01/22 11:30:00 AM EDT [facility] ([facility] ) Outpatient Attender: Chas Zuleta 12/31 10:00:00 AM EDT [facility] ([facility] ) Outpatient Attender: Chas Zuleta 12/03 09:30:00 AM EDT [facility] ([facility] ) Outpatient Attender: Genie Bashir/Demarcus/Tom/Kel hosea 11/28/2020 10:30:00 AM EDT [facility] ([facility] Outpatient Attender: Chas Zuleta 10/15 02:30:00 PM EDT [facility] ([facility] ) Outpatient Attender: Genie Bashir/Demarcus/Tom/Kel ndl 09/25/2020 09:30:00 AM EST [facility] ([facility] Outpatient Attender: Chas Zuleta 09/11 07:00:00 AM EST [facility] ([facility] ) Outpatient Attender: Chas Zuleta 08/23 09:30:00 AM EST [facility] ([facility] ) Outpatient Attender: Genie Esposito/Tom/Kel ndl 06/25/2020 07:30:00 AM EST [facility] ([facility] Outpatient Attender: Chas Zuleta 06/12 08:30:00 AM EST [facility] ([facility] ) Outpatient Attender: GENIE Cisse/Karen/Rein dl 05/15/2020 02:15:00 PM EDT [facility] ([facility]) Immunizations Vaccine Date Status Description Data Source(s) COVID-19 VACCINE Moderna 10/09/2020 12:00:00 AM EDT completed [facility] Vaccine Series Complete: YESThis Data wa s Submitted to [facility]. COVID-19 VACCINE Moderna 09/15/2020 12:00:00 AM EST completed [facility] Vaccine Series Complete: NOThis Data was Submitted to [facility]. New in 2011. IIV4 05/20/2020 07:43:00 AM EST completed [facility] ([facility], ) Medications Medication Brand Name Start Date Product Form Dose Route Admi nistrative Instructions Pharmacy Instructions Status Indications Reaction Description Data Source(s) 1.25 mg/3 mL 05/14/2021 12:00:00 AM EDT solution for nebuliz ation 1050 1 VIAL VIA NEBULIZER EVERY 6 HOURS NEEDED 1 VIAL VIA NEBULIZER EVERY 6 HOURS NEEDED SOLD: 05/17/2021 [facility] 0.4 mg 05/06/2021 12:00:00 AM EDT capsule 180 TAKE 2 CAPSULES BY MOUTH 1/2 HOUR AFTER THE SAME EACH DAY TAKE 2 CAPSULES BY MOUTH 1/2 HOUR AFTER THE SAME EACH DAY SOLD: 05/07/2021 [facility] 2.5 mg 05/01/2021 12:00:00 AM EDT tablet 1 TAKE ONE TABLET BY MOUTH EVERY DAY FOR EDEMA TAKE ONE TABLET BY MOUTH EVERY DAY FOR EDEMA SOLD: 05/02/2021 [facility] Metolazone 2.5 MG Oral Tablet Metolazone 04/30/2021 12:00:00 AM EDT ORAL active [facility] ([facility]) Oxygen - Home 04/20/2021 12:00:00 AM EDT acti ve [facility] ([facility]) 3 ML insulin detemir 100 UNT/ML Pen Injector [Levemir] Levem ir Flextouch 04/20/2021 12:00:00 AM EDT active [facility] ([facility]) atorvastatin 10 MG Oral Tablet Atorvastatin Calcium 04/20/2021 1 2:00:00 AM EDT ORAL active [facility] ( [facility]) duloxetine 30 MG Delayed Release Oral Capsule Duloxetine HCL 04/20/2021 12:00:00 AM EDT ORAL active [facility] ([facility]) Tamsulosin hydrochloride 0.4 MG Oral Capsule Tamsulosin HCL 04/20/2021 12:00:00 AM EDT ORAL active [facility] ([facility]) torsemide 20 MG Oral Tablet Torsemide 04/20/2021 12:00:00 AM EDT ORAL active [facility] ([facility]) glimepiride 2 MG Oral Tablet Glimepiride 04/20/2021 12:00:00 AM EDT ORAL active [facility] ([facility]) Metoprolol Tartrate 25 MG Oral Tablet Metoprolol Tartrate 12:00:00 AM EDT ORAL active [facility] ([facility]) 0.3 ML Epinephrine 1 MG/ML Auto-Injector [Epipen] Epipen 2-P ak 04/20/2021 12:00:00 AM EDT active M EDENT ([facility]) Trazodone Hydrochloride 50 MG Oral Tablet Trazodone HCL 04/20/2021 12:00:00 AM EDT ORAL active [facility] doxycycline hyclate 100 MG Oral Tablet DOXYCYCLINE HYCLATE 0 03/28/2021 12:00:00 AM EDT tablet 10 TAKE ONE TABLET BY MOUTH TWO TIMES A DAY TAKE ONE TABLET BY MOUTH TWO TIMES A DAY SOLD: 03/29/2021 [facility] 20 mg 03/28/2021 12:00:00 AM EDT tablet 90 TAKE TWO TABLETS BY MOUTH EVERY MORNING AND TAKE ONE TABLET BY MOUTH EVERY EVENING TAKE TWO TABLETS BY MOUTH EVERY MORNING AND TAKE ONE TABLET BY MOUTH EVERY EVENING SOLD: 03/29/2021 [facility] Furosemide 40 MG Oral Tablet [Lasix] Lasix 03/07/2021 12:00:00 AM EDT ORAL completed [facility] ([facility]) 10 mg 03/06/2021 12:00:00 AM EDT tablet 30 TAKE 4 TABLETS BY MOUTH ONCE DAILY FOR 3 DAYS THEN TAKE 3 TABLETS BY MOUTH EVERY DAY FOR 3 DAYS THEN TAKE 2 TABLETS BY MOUTH EVERY DAY FOR 3 DAY THEN 1 DAILY FOR 3 DAYS AND STOP TAKE 4 TABLETS BY MOUTH ONCE DAILY FOR 3 DAYS THEN TAKE 3 TABLETS BY MOUTH EVERY DAY FOR 3 DAYS THEN TAKE 2 TABLETS BY MOUTH EVERY DAY FOR 3 DAY THEN 1 DAILY FOR 3 DAYS AND STOP SOLD: 03/06/2021 [facility] 31 gauge x 3/16" 03/06/2021 12:00:00 AM EDT needle 50 USE SUBCUTANEOUSLY DIRECTED USE SUBCUTANEOUSLY DIRECTED SOLD: 03/06/2021 [facility] 100 unit/mL 03/06/2021 12:00:00 AM EDT solution 30 USE SUBCUTANEOUSLY BEFORE MEALS PER SLIDING SCALE 0-100 =0 UNITS 101-150=2 UNITS 151-200=4 UNITS 201- 250=6 UNITS 251-300=8 UNITS 301-350=10 UNITS 351-400=12 UNITS USE SUBCUTANEOUSLY BEFORE MEALS PER SLIDING SCALE 0-100 =0 UNITS 101-150=2 UNITS 151-200=4 UNITS 201-250=6 UNITS 251-300=8 UNITS 301-350=10 UNITS 351-400=12 UNITS SOLD: 03/06/2021 [facility] 90 mcg/actuation 03/06/2021 12:00:00 AM EDT HFA aerosol inha ler 18 INHALE 2 PUFFS BY MOUTH EVERY 4-6 HOUR NEEDED FOR WHEEZING INHALE 2 PUFFS BY MOUTH EVERY 4-6 HOUR NEEDED FOR WHEEZING SOLD: 03/06/2021 [facility] 33 gauge 03/06/2021 12:00:00 AM EDT misc 100 TEST TWO TIMES A DAY DIRECTED TEST TWO TIMES A DAY DIRECTED SOLD: 03/06/2021 [facility] ALCOHOL ANTISEPTIC PADS 03/06/2021 12:00:00 AM EDT pads, med icated 100 USE DIRECTED USE DIRECTED SOLD: 03/06/2021 [facility] 40 mg 03/06/2021 12:00:00 AM EDT tablet 30 TAKE TWO TABLETS BY MOUTH EVERY DAY TAKE TWO TABLETS BY MOUTH EVERY DAY SOLD: 03/06/2021 [facility] 1 mL 31 gauge x 5/16 03/06/2021 12:00:00 AM EDT syringe 50 USE DIRECTED SUBCUTANEOUSLY USE DIRECTED SUBCUTANEOUSLY SOLD: 03/06/2021 [facility] 80-4.5 mcg/actuation 03/06/2021 12:00:00 AM EDT HFA aerosol inhaler 10 INHALE TWO PUFFS BY MOUTH TWICE A DAY INHALE TWO PUFFS BY MOUTH TWICE A DAY SOLD: 03/06/2021 [facility] 1.25 mg/3 mL 03/06/2021 12:00:00 AM EDT solution for nebuliz ation 225 USE 1 VIAL VIA NEBULIZER EVERY 4 HOURS NEEDED FOR SHORTNESS OF BREATH AND WHEEZING USE 1 VIAL VIA NEBULIZER EVERY 4 HOURS NEEDED FOR SHORTNESS OF BREATH AND WHEEZING SOLD: 03/06/2021 [facility] BLOOD-GLUCOSE METER 03/06/2021 12:00:00 AM EDT misc 1 TEST DIRECTED TEST DIRECTED SOLD: 03/06/2021 [facility] BLOOD SUGAR DIAGNOSTIC 03/06/2021 12:00:00 AM EDT strip 100 TEST DIRECTED TWO TIMES A DAY TEST DIRECTED TWO TIMES A DAY SOLD: 03/06/2021 [facility] doxycycline hyclate 100 MG Oral Tablet DOXYCYCLINE HYCLATE 0 03/06/2021 12:00:00 AM EDT tablet 10 TAKE ONE TABLET BY MOUTH TWI CE A DAY TAKE ONE TABLET BY MOUTH TWICE A DAY SOLD: 03/06/2021 [facility] 10 mg 02/19/2021 12:00:00 AM EDT tablet 20 TAKE FOUR TABLETS BY MOUTH EVERY DAY FOR 2 DAYS THEN 3 ONCE DAILY FOR 2 DAYS THEN 2 ONCE DAILY FOR 2 DAYS THEN 1 ONCE DAILY FOR 2 DAYS THEN STOP TAKE FOUR TABLETS BY MOUTH EVERY DAY FOR 2 DAYS THEN 3 ONCE DAILY FOR 2 DAYS THEN 2 ONCE DAILY FOR 2 DAYS THEN 1 ONCE DAILY FOR 2 DAYS THEN STOP SOLD: 02/19/2021 [facility] 250 mg 02/06/2021 12:00:00 AM EDT tablet 6 TAKE TWO TABLETS BY MOUTH AT ONCE ON THE FIRST DAY THEN TAKE ONE DAILY THEREAFTER TAKE TWO TABLETS BY MOUTH AT ONCE ON THE FIRST DAY THEN TAKE ONE DAILY THEREAFTER SOLD: 02/07/2021 [facility] Zithromax Z-Shashi Zithromax Z-Shashi 02/05/2021 12:00:00 AM EDT ORAL active [facility] ([facility]) 400 mg 01/30/2021 12:00:00 AM EDT tablet 3 TAKE ONE TABLET BY MOUTH EVERY DAY AT 9PM TAKE ONE TABLET BY MOUTH EVERY DAY AT 9PM SOLD: 01/30/2021 [facility] 10 mg 01/30/2021 12:00:00 AM EDT tablet 30 TAKE 4 TABLETS BY MOUTH DAILY FOR 3 DAYS THEN 3 DAILY FOR 3 DAYS THEN 2 DAILY FOR 3 DAYS 1 DAILY FOR 3 DAYS THEN STOP TAKE 4 TABLETS BY MOUTH DAILY FOR 3 DAYS THEN 3 DAILY FOR 3 DAYS THEN 2 DAILY FOR 3 DAYS 1 DAILY FOR 3 DAYS THEN STOP SOLD: 01/30/2021 [facility] 40 mg 01/30/2021 12:00:00 AM EDT tablet 60 TAKE ONE TABLET BY MOUTH TWICE A DAY AT 9 AND 5 TAKE ONE TABLET BY MOUTH TWICE A DAY AT 9 AND 5 SOLD: 2020 [facility] 1.25 mg/3 mL 01/28/2021 12:00:00 AM EDT solution for nebuliz ation 300 USE 1 VIAL VIA NEBULIZER EVERY 6 HOURS NEEDED USE 1 VIAL VIA NEBULIZER EVERY 6 HOURS NEEDED SOLD: 02/22/2021 [facility] 1.25 mg/3 mL 01/28/2021 12:00:00 AM EDT solution for nebuliz ation 300 USE 1 VIAL VIA NEBULIZER EVERY 6 HOURS NEEDED USE 1 VIAL VIA NEBULIZER EVERY 6 HOURS NEEDED SOLD: 01/29/2021 [facility] Levalbuterol 0.417 MG/ML Inhalant Solution [Xopenex] Xopenex 01/28/2021 12:00:00 AM EDT active [facility] ([facility] ) 50 mg 01/23/2021 12:00:00 AM EDT tablet 30 TAKE ONE TABLET BY MOUTH AT BEDTIME TAKE ONE TABLET BY MOUTH AT BEDTIME SOLD: 03/05/2021 [facility] 50 mg 01/23/2021 12:00:00 AM EDT tablet 30 TAKE ONE TABLET BY MOUTH AT BEDTIME TAKE ONE TABLET BY MOUTH AT BEDTIME SOLD: 01/24/2021 [facility] Trazodone Hydrochloride 50 MG Oral Tablet Trazodone HCL 01/22/2021 12:00:00 AM EDT ORAL active [facility] ([facility]) 20 mg 01/15/2021 12:00:00 AM EDT tablet 4 TAKE TWO TABLETS BY MOUTH EVERY MORNING TAKE TWO TABLETS BY MOUTH EVERY MORNING SOLD: 01/16/2021 [facility] Freestyle Ines 2/[place]/Flash Glucose Monitoring System 12/31/2020 12:00:00 AM EDT active [facility] ([facility]) Freestyle Ines 2/Sensor/Flash Glucose Monitoring System 12/31/2020 12:00:00 AM EDT active [facility] ([facility]) 20 mg 12/23/2020 12:00:00 AM EDT tablet 16 TAKE 3 TABLETS BY MOUTH EVERY DAY FOR 2 DAYS , THEN 2 EVERY DAY FOR 2 DAYS , THEN 1 EVERY DAY FOR 4 DAYS , THEN 1/2 EVERY DAY FOR 4 DAYS TAKE 3 TABLETS BY MOUTH EVERY DAY FOR 2 DAYS , THEN 2 EVERY DAY FOR 2 DAYS , THEN 1 EVERY DAY FOR 4 DAYS , THEN 1/2 EVERY DAY FOR 4 DAYS SOLD: 12/23/2020 [facility] Zithromax Z-Shashi Zithromax Z-Shashi 12/23/2020 12:00:00 AM EDT ORAL completed [facility] ([facility]) 250 mg 12/23/2020 12:00:00 AM EDT tablet 6 TAKE TWO TABLETS BY MOUTH AT ONCE ON THE FIRST DAY THEN TAKE ONE DAILY THEREAFTER TAKE TWO TABLETS BY MOUTH AT ONCE ON THE FIRST DAY THEN TAKE ONE DAILY THEREAFTER SOLD: 12/23/2020 [facility] Albuterol 0.833 MG/ML / Ipratropium Brom lorena 0.167 MG/ML Inhalation Solution 0.5 mg-3 mg(2.5 mg base)/3 mL IPRATROPIUM/ALBUTEROL SULFATE 11/28/2020 12:00:00 AM EDT solution for nebulization 360 INHALE THE CONTENTS OF ONE VIAL VIA NEBULIZER FOUR TIMES A DAY NEEDED INHALE THE CONTENTS OF ONE VIAL VIA NEBULIZER FOUR TIMES A DAY NEEDED SOLD: 11/29/2020 [facility] Albuterol 0.833 MG/ML / Ipratropium Brom lorena 0.167 MG/ML Inhalation Solution 0.5 mg-3 mg(2.5 mg base)/3 mL IPRATROPIUM/ALBUTEROL SULFATE 11/28/2020 12:00:00 AM EDT solution for nebulization 360 INHALE THE CONTENTS OF ONE VIAL VIA NEBULIZER FOUR TIMES A DAY NEEDED INHALE THE CONTENTS OF ONE VIAL VIA NEBULIZER FOUR TIMES A DAY NEEDED SOLD: 01/21/2021 [facility] 50 mg 11/26/2020 12:00:00 AM EDT tablet 20 TAKE ONE TABLET BY MOUTH AT BEDTIME TAKE ONE TABLET BY MOUTH AT BEDTIME SOLD: 11/26/2020 [facility] 40 mg 11/26/2020 12:00:00 AM EDT tablet 30 TAKE ONE TABLET BY MOUTH EVERY DAY TAKE ONE TABLET BY MOUTH EVERY DAY SOLD: 11/26/2020 [facility] 10 mg 11/26/2020 12:00:00 AM EDT tablet 40 TAKE FOUR TABLETS BY MOUTH EVERY DAY FOR 4 DAYS THEN 3 ONCE DAILY FOR 4 DAYS THEN 2 ONCE DAILY FOR 4 DAYS THEN 1 ONCE DAILY FOR 4 DAYS TAKE FOUR TABLETS BY MOUTH EVERY DAY FOR 4 DAYS THEN 3 ONCE DAILY FOR 4 DAYS THEN 2 ONCE DAILY FOR 4 DAYS THEN 1 ONCE DAILY FOR 4 DAYS SOLD: 11/26/2020 [facility] atorvastatin 10 MG Oral Tablet ATORVASTATIN CALCIUM 10/21/2020 1 2:00:00 AM EDT tablet 90 TAKE ONE TABLET BY MOUTH EVERY D AY TAKE ONE TABLET BY MOUTH EVERY DAY SOLD: 01/21/2021 [facility] atorvastatin 10 MG Oral Tablet ATORVASTATIN CALCIUM 10/21/2020 1 2:00:00 AM EDT tablet 90 TAKE ONE TABLET BY MOUTH EVERY D AY TAKE ONE TABLET BY MOUTH EVERY DAY SOLD: 05/05/2021 [facility] atorvastatin 10 MG Oral Tablet ATORVASTATIN CALCIUM 10/21/2020 1 2:00:00 AM EDT tablet 90 TAKE ONE TABLET BY MOUTH EVERY D AY TAKE ONE TABLET BY MOUTH EVERY DAY SOLD: 10/22/2020 [facility] Furosemide 20 MG Oral Tablet [Lasix] Lasix 10/15/2020 12:00:00 AM EDT ORAL completed [facility] ([facility]) Azithromycin 250 MG Oral Tablet [Zithromax] Zithromax 10/15/2020 12:00:00 AM EDT completed [facility] ([facility]) 250 mg 10/15/2020 12:00:00 AM EDT tablet 6 TAKE TWO TABLETS BY MOUTH AT ONCE ON THE FIRST DAY THEN TAKE ONE DAILY THEREAFTER TAKE TWO TABLETS BY MOUTH AT ONCE ON THE FIRST DAY THEN TAKE ONE DAILY THEREAFTER SOLD: 10/16/2020 [facility] 20 mg 10/15/2020 12:00:00 AM EDT tablet 10 TAKE ONE TABLET BY MOUTH EVERY DAY NEEDED FOR SWELLING TAKE ONE TABLET BY MOUTH EVERY DAY NE EDED FOR SWELLING SOLD: 10/16/2020 [facility] 20 mg 10/15/2020 12:00:00 AM EDT tablet 16 TAKE 3 TABLETS BY MOUTH EVERY DAY FOR 2 DAYS THEN 2 DAILY FOR 2 DAYS THEN 1 ONCE DAILY FOR 4 DAYS THEN 1/2 TABLET ONCE DAILY FOR 4 DAYS TAKE 3 TABLETS BY MOUTH EVERY DAY FOR 2 DAYS THEN 2 DAILY FOR 2 DAYS THEN 1 ONCE DAILY FOR 4 DAYS THEN 1/2 TABLET ONCE DAILY FOR 4 DAYS SOLD: 10/16/2020 [facility] 25 mg 10/11/2020 12:00:00 AM EDT tablet 180 TAKE ONE TABLET BY MOUTH TWICE A DAY TAKE ONE TABLET BY MOUTH TWICE A DAY SOLD: 10/12/2020 [facility] Metoprolol Tartrate 25 MG Oral Tablet Metoprolol Tartrate 12:00:00 AM EDT ORAL active [facility] ([facility] 25 mg 10/11/2020 12:00:00 AM EDT tablet 180 TAKE ONE TABLET BY MOUTH TWICE A DAY TAKE ONE TABLET BY MOUTH TWICE A DAY SOLD: 01/29/2021 [facility] 25 mg 10/11/2020 12:00:00 AM EDT tablet 180 TAKE ONE TABLET BY MOUTH TWICE A DAY TAKE ONE TABLET BY MOUTH TWICE A DAY SOLD: 05/22/2021 [facility] Covid-19 vaccine, Unspecified 10/09/2020 12:00:00 AM EDT completed [facility] ([facility]) Medication administered onsite Covid-19 vaccine, Unspecified 10/09/2020 12:00:00 AM EDT completed [facility] ([facility]) Medication administered onsite atorvastatin 10 MG Oral Tablet ATORVASTATIN CALCIUM 09/20/2020 1 2:00:00 AM EST tablet 30 TAKE ONE TABLET BY MOUTH EVERY D AY TAKE ONE TABLET BY MOUTH EVERY DAY SOLD: 09/21/2020 [facility] Covid-19 vaccine, Unspecified 09/15/2020 12:00:00 AM EST completed [facility] ([facility]) Medication administered onsite Covid-19 vaccine, Unspecified 09/11/2020 12:00:00 AM EST completed [facility] ([facility]) Medication administered onsite glimepiride 2 MG Oral Tablet GLIMEPIRIDE 09/11/2020 12:00:00 AM EST ta blet 60 TAKE ONE TABLET BY MOUTH TWICE A DAY TAKE ONE TABLET BY MOUTH TWICE A DAY SOLD: 06/11/2021 [facility] 3 ML insulin detemir 100 UNT/ML Pen Injector [Levemir] Levem ir Flextouch 09/11/2020 12:00:00 AM EST active [facility] ([facility]) glimepiride 2 MG Oral Tablet GLIMEPIRIDE 09/11/2020 12:00:00 AM EST ta blet 60 TAKE ONE TABLET BY MOUTH TWICE A DAY TAKE ONE TABLET BY MOUTH TWICE A DAY SOLD: 05/05/2021 [facility] 32 gauge x 5/32" 09/11/2020 12:00:00 AM EST needle 100 USE 1 NEEDLE EVERY DAY USE 1 NEEDLE EVERY DAY SOLD: 09/12/2020 [facility] 100 unit/mL (3 mL) 09/11/2020 12:00:00 AM EST insulin pen 15 INJECT 5 UNITS ONCE DAILY THEN TITRATE UPWARD INJECT 5 UNITS ONCE DAILY THEN TITRATE UPWARD SOLD: 09/12/2020 [facility] glimepiride 2 MG Oral Tablet GLIMEPIRIDE 09/11/2020 12:00:00 AM EST ta blet 60 TAKE ONE TABLET BY MOUTH TWICE A DAY TAKE ONE TABLET BY MOUTH TWICE A DAY SOLD: 11/29/2020 [facility] glimepiride 2 MG Oral Tablet GLIMEPIRIDE 09/11/2020 12:00:00 AM EST ta blet 60 TAKE ONE TABLET BY MOUTH TWICE A DAY TAKE ONE TABLET BY MOUTH TWICE A DAY SOLD: 04/04/2021 [facility] 32 gauge x 5/32" 09/11/2020 12:00:00 AM EST needle 100 USE 1 NEEDLE EVERY DAY USE 1 NEEDLE EVERY DAY SOLD: 01/12/2021 [facility] glimepiride 2 MG Oral Tablet GLIMEPIRIDE 09/11/2020 12:00:00 AM EST ta blet 60 TAKE ONE TABLET BY MOUTH TWICE A DAY TAKE ONE TABLET BY MOUTH TWICE A DAY SOLD: 09/12/2020 [facility] glimepiride 2 MG Oral Tablet GLIMEPIRIDE 09/11/2020 12:00:00 AM EST ta blet 60 TAKE ONE TABLET BY MOUTH TWICE A DAY TAKE ONE TABLET BY MOUTH TWICE A DAY SOLD: 01/12/2021 [facility] BD Pen Needle/[place]/Ultra -Fine/32G X 4mm 09/11/2020 12:00:00 AM EST active [facility] ([facility]) glimepiride 2 MG Oral Tablet GLIMEPIRIDE 09/11/2020 12:00:00 AM EST ta blet 60 TAKE ONE TABLET BY MOUTH TWICE A DAY TAKE ONE TABLET BY MOUTH TWICE A DAY SOLD: 10/22/2020 [facility] 100 unit/mL (3 mL) 09/11/2020 12:00:00 AM EST insulin pen 15 INJECT 5 UNITS ONCE DAILY THEN TITRATE UPWARD INJECT 5 UNITS ONCE DAILY THEN TITRATE UPWARD SOLD: 03/05/2021 [facility] glimepiride 2 MG Oral Tablet GLIMEPIRIDE 09/11/2020 12:00:00 AM EST ta blet 60 TAKE ONE TABLET BY MOUTH TWICE A DAY TAKE ONE TABLET BY MOUTH TWICE A DAY SOLD: 02/22/2021 [facility] 25 mg 09/05/2020 12:00:00 AM EST tablet 60 TAKE ONE TABLET BY MOUTH TWICE A DAY TAKE ONE TABLET BY MOUTH TWICE A DAY SOLD: 09/06/2020 [facility] 4 mg 09/05/2020 12:00:00 AM EST tablets,dose pack 21 TAKE PER PACKAGE INSTRUCTIONS TAKE PER PACKAGE INSTRUCTIONS SOLD: 09/06/2020 [facility] 30 mg 08/27/2020 12:00:00 AM EST capsule,delayed release (DR/EC) 240 TAKE TWO CAPSULES BY MOUTH EVERY MORNING AND 1 EVERY EVENING TAKE TWO CAPSULES BY MOUTH EVERY MORNING AND 1 EVERY EVENING SOLD: 05/05/2021 [facility] 30 mg 08/27/2020 12:00:00 AM EST capsule,delayed release (DR/EC) 240 TAKE TWO CAPSULES BY MOUTH EVERY MORNING AND 1 EVERY EVENING TAKE TWO CAPSULES BY MOUTH EVERY MORNING AND 1 EVERY EVENING SOLD: 08/29/2020 [facility] 30 mg 08/27/2020 12:00:00 AM EST capsule,delayed release (DR/EC) 240 TAKE TWO CAPSULES BY MOUTH EVERY MORNING AND 1 EVERY EVENING TAKE TWO CAPSULES BY MOUTH EVERY MORNING AND 1 EVERY EVENING SOLD: 01/16/2021 [facility] Metformin hydrochloride 500 MG Oral Tablet METFORMIN HCL 08/16/2020 12:00:00 AM EST tablet 60 TAKE ONE TABLET BY MOUTH TWI CE A DAY TAKE ONE TABLET BY MOUTH TWICE A DAY SOLD: 08/16/2020 [facility] glimepiride 2 MG Oral Tablet GLIMEPIRIDE 08/16/2020 12:00:00 AM EST ta blet 30 TAKE ONE TABLET BY MOUTH DAILY AT 7:30 TAKE ONE TABLET BY MOUTH DAILY AT 7:30 SOLD: 08/16/2020 [facility] 4 mg 08/16/2020 12:00:00 AM EST [...] 1 TABLET DAY 6 DIRECTED SOLD: 08/16/2020 [facility] 500 mg 08/16/2020 12:00:00 AM EST tablet 5 TAKE ONE TABLET BY MOUTH EVERY DAY TAKE ONE TABLET BY MOUTH EVERY DAY SOLD: 08/16/2020 [facility] 30 gauge 08/16/2020 12:00:00 AM EST misc 100 ONE MISCELLANEOUS TWICE A DAY ONE MISCELLANEOUS TWICE A DAY SOLD: 08/16/2020 [facility] BLOOD SUGAR DIAGNOSTIC 08/16/2020 12:00:00 AM EST strip 100 ONE MISCELLANEOUS TWICE A DAY ONE MISCELLANEOUS TWICE A DAY SOLD: 08/16/2020 [facility] ALCOHOL ANTISEPTIC PADS 08/16/2020 12:00:00 AM EST pads, med icated 100 USE ONE PAD TOPICALLY TWICE A DAY USE ONE PAD TOPICALLY TWICE A DAY SOLD: 08/16/2020 [facility] 12 HR Guaifenesin 600 MG Extended Release Oral Tablet GUAIFE NESIN 08/16/2020 12:00:00 AM EST tablet extended release 12hr 30 BINDU E ONE TABLET BY MOUTH TWICE A DAY TAKE ONE TABLET BY MOUTH TWICE A DAY SOLD: 08/16/2020 [facility] atorvastatin 10 MG Oral Tablet ATORVASTATIN CALCIUM 08/12/2020 1 2:00:00 AM EST tablet 30 TAKE ONE TABLET BY MOUTH EVERY D AY TAKE ONE TABLET BY MOUTH EVERY DAY SOLD: 08/14/2020 [facility] 0.5 % 07/18/2020 12:00:00 AM EST cream 45 APPLY TO AFFECTED AREA(S) TWO TIMES A DAY DIRECTED DO NOT OVERUSE RISK OF ATROPHY APPLY TO AFFECTED AREA(S) TWO TIMES A DAY DIRECTED DO NOT OVERUSE RISK OF ATROPHY SOLD: 07/23/2020 [facility] Triamcinolone Acetonide 5 MG/ML Topical Cream Triamcinolone Acetonide 07/17/2020 12:00:00 AM EST active [facility] ([facility]) 500 mg 07/09/2020 12:00:00 AM EST tablet 20 TAKE ONE TABLET BY MOUTH TWICE A DAY TAKE ONE TABLET BY MOUTH TWICE A DAY SOLD: 07/09/2020 [facility] Ciprofloxacin 500 MG Oral Tablet Ciprofloxacin HCL 07/09/2020 12:00 :00 AM EST ORAL completed [facility] ([facility], ) Albuterol 0.833 MG/ML / Ipratropium [place] 0.167 MG/M L Inhalant Solution Ipratropium [place]/Albuterol Sulfate 07/08/2020 12:00:00 AM EST active [facility] ([facility], ) 10 mg 07/08/2020 12:00:00 AM EST [...] FOR 5 DAYS THEN STOP SOLD: 07/09/2020 [facility] Prednisone 10 MG Oral Tablet Prednisone 07/08/2020 12:00:00 AM EST ORAL completed [facility] ([facility], ) atorvastatin 10 MG Oral Tablet ATORVASTATIN CALCIUM 07/05/2020 1 2:00:00 AM EST tablet 30 TAKE ONE TABLET BY MOUTH EVERY D AY TAKE ONE TABLET BY MOUTH EVERY DAY SOLD: 07/06/2020 [facility] Nystatin [id number] UNT/ML Oral Suspension Nystatin 06/27/2020 12:00:00 AM EST ORAL active [facility] ([facility], ) 100,000 unit/mL 06/27/2020 12:00:00 AM EST suspension 200 TAKE 4ML BY MOUTH SWISH AND SWALLOW FOUR TIMES A DAY FOR 10 DAYS TAKE 4ML BY MOUTH SWISH AND SWALLOW FOUR TIMES A DAY FOR 10 DAYS SOLD: 06/29/2020 [facility] Spiriva Respimat Spiriva Respimat 06/25/2020 12:00:00 AM EST RESPIRATORY completed [facility] ([facility], ) 250 mg 06/12/2020 12:00:00 AM EST tablet 6 TAKE TWO TABLETS BY MOUTH AT ONCE ON THE FIRST DAY THEN TAKE ONE DAILY THEREAFTER TAKE TWO TABLETS BY MOUTH AT ONCE ON THE FIRST DAY THEN TAKE ONE DAILY THEREAFTER SOLD: 06/12/2020 [facility] Prednisone 20 MG Oral Tablet Prednisone 06/12/2020 12:00:00 AM EST active [facility] ([facility]) Azithromycin 250 MG Oral Tablet Azithromycin 06/12/2020 12:00:00 AM EST completed [facility] ([facility]) 20 mg 06/12/2020 12:00:00 AM EST tablet [...] TABLET DAILY FOR 4 DAYS SOLD: 06/12/2020 [facility] 90 mcg/actuation 06/03/2020 12:00:00 AM EST HFA aerosol inha ler 18 INHALE TWO PUFFS BY MOUTH FOUR TIMES A DAY NEEDED INHALE TWO PUFFS BY MOUTH FOUR TIMES A DAY NEEDED SOLD: 06/04/2020 [facility] 90 mcg/actuation 06/03/2020 12:00:00 AM EST HFA aerosol inha ler 18 INHALE TWO PUFFS BY MOUTH FOUR TIMES A DAY NEEDED INHALE TWO PUFFS BY MOUTH FOUR TIMES A DAY NEEDED SOLD: 10/22/2020 [facility] 160-4.5 mcg/actuation 06/03/2020 12:00:00 AM EST HFA aerosol inhaler 10 INHALE TWO PUFFS BY MOUTH TWICE A DAY INHALE TWO PUFFS BY MOUTH TWICE A DAY SOLD: 08/12/2020 [facility] 160-4.5 mcg/actuation 06/03/2020 12:00:00 AM EST HFA aerosol inhaler 10 INHALE TWO PUFFS BY MOUTH TWICE A DAY INHALE TWO PUFFS BY MOUTH TWICE A DAY SOLD: 04/15/2021 [facility] atorvastatin 10 MG Oral Tablet ATORVASTATIN CALCIUM 06/03/2020 1 2:00:00 AM EST tablet 30 TAKE ONE TABLET BY MOUTH EVERY D AY TAKE ONE TABLET BY MOUTH EVERY DAY SOLD: 06/04/2020 [facility] 160-4.5 mcg/actuation 06/03/2020 12:00:00 AM EST HFA aerosol inhaler 10 INHALE TWO PUFFS BY MOUTH TWICE A DAY INHALE TWO PUFFS BY MOUTH TWICE A DAY SOLD: 07/09/2020 [facility] 90 mcg/actuation 06/03/2020 12:00:00 AM EST HFA aerosol inha ler 18 INHALE TWO PUFFS BY MOUTH FOUR TIMES A DAY NEEDED INHALE TWO PUFFS BY MOUTH FOUR TIMES A DAY NEEDED SOLD: 09/06/2020 [facility] 160-4.5 mcg/actuation 06/03/2020 12:00:00 AM EST HFA aerosol inhaler 10 INHALE TWO PUFFS BY MOUTH TWICE A DAY INHALE TWO PUFFS BY MOUTH TWICE A DAY SOLD: 06/04/2020 [facility] 40 mg 05/15/2020 12:00:00 AM [...] TWICE A DAY (DYSPHAGIA,REFLUX ) SOLD: 05/16/2020 [facility] Omeprazole 40 MG Delayed Release Oral Capsule Omeprazole 05/15/2020 12:00:00 AM EDT ORAL active [facility] ([facility]) 20 mg 03/27/2020 12:00:00 AM EDT tablet 180 TAKE ONE TABLET BY MOUTH TWICE A DAY TAKE ONE TABLET BY MOUTH TWICE A DAY SOLD: 07/06/2020 [facility] 30 mg 03/27/2020 12:00:00 AM [...] THE SAME MEAL SOLD: 06/19/2020 [facility] 0.4 mg 02/07/2020 12:00:00 AM EDT capsule 180 TAKE TWO CAPSULES BY MOUTH EVERY DAY 1/2 HOUR AFTER THE SAME MEAL TAKE TWO CAPSULES BY MOUTH EVERY DAY 1/2 HOUR AFTER THE SAME MEAL SOLD: 09/21/2020 [facility] 0.4 mg 02/07/2020 12:00:00 AM EDT capsule 180 TAKE TWO CAPSULES BY MOUTH EVERY DAY 1/2 HOUR AFTER THE SAME MEAL TAKE TWO CAPSULES BY MOUTH EVERY DAY 1/2 HOUR AFTER THE SAME MEAL SOLD: 01/12/2021 [facility] Insurance Providers Payer name Policy type / Coverage type Policy ID Covered libertarian ID Covered libertarian's relationship to cobb Policy Cobb Plan Information [facility] [id number] SP [id number] [employer] [id number] Self [id number] [employer] [id number] Self [id number] [employer] Int Commercial [id number] Self [id number] AETNA MEDICARE O [id number] S MEBTN [id number] AETNA MEDICARE [id number] SP MEBTN [id number] WELLCARE [id number] SP [id number] WELLCARE O [id number] S [id number] WELLCARE [id number] SP [id number] WELLCARE [id number] SP [id number] [facility] Medicaid Commercial [id number] Self [id number] SELF PAY ONLY SP [facility] [id number] SP [id number] [facility] Health Maintenance Organization (HMO) [id number] Self [id number] [facility] Medicaid Commercial [id number] Self [id number] [facility] Healthcare Commercial [id number] Self [id number] P HEALTH CARE O [id number] S [id number] MVP MCDHMO [id number] SP [id number] MVP MCDHMO [id number] MEDICAID [id number] SP [id number] MEDICAID [id number] SP [id number] [facility] Healthcare Commercial MVPM [id number] Self [facility] MCDHMO [id number] SP [id number] [facility] PHY [id number] SP [id number] [facility] PHY [id number] SP [id number] [place] PPO 302/307 [id number] SP [id number] [facility] HEALTH CARE P [id number] S [id number] [facility] HEALTH CARE P [id number] S [id number] P UNAVAILABLE UNA[place]ILA BLE EXCELLUS BCBS P [id number] S [place] [id number] [place]BS [place] PPO 302/307 [id number] SP [id number] [facility] PHY [id number] SP [id number] STATE INSURANCE FUND [id number] SP [id number] BCBS [place] 304/804 [id number] SP [id number] [employer]BS [facility] 303/803 [id number] SP [id number] [employer] [facility] 303/803 [id number] SP [id number] BCBS [place] [id number] SP [id number] [facility] [id number] SP [id number] BCBS [place] [id number] WI [id number] AETNA MEDICARE [id number] SP MEBTN [id number] [id number] MEDICARE [id number] SP [id number] AETNA MEDICARE [id number] SP MEBTN [id number] AETNA MEDICARE O [id number] S [id number] Problems, Conditions, and Diagnoses Code Display Name Description Problem Type Effective Dates Data Source(s) I50.32 Chronic diastolic heart failure Chronic diastolic hear t failure Problem 04/21/2021 12:00:00 AM EDT [facility] ([facility]) E66.8 Obesity Obesity Problem 04/21/2021 12:00:00 AM ED T [facility] ([facility]) I50.20 Systolic heart failure Systolic heart failure Problem 11/28/2020 12:00:00 AM EDT [facility] ([facility]) R09.02 Hypoxemia Hypoxemia Problem 09/25/2020 12:00:00 AM ES T [facility] ([facility]) Surgeries/Procedures Procedure Description Date Indications Data Source(s) OFFICE OUTPATIENT VISIT 25 MINUTES 05/07/2021 12:00:00 AM EDT [facility] ([facility]) ECG ROUTINE ECG W/LEAST 12 LDS W/I&R 04/21/2021 12:00: 00 AM EDT [facility] ([facility]) OFFICE OUTPATIENT VISIT 25 MINUTES 04/21/2021 12:00:00 AM EDT [facility] ([facility]) Spirometry 04/10/2021 12:00:00 AM EDT M EDENT ([facility]) OFFICE OUTPATIENT VISIT 15 MINUTES 04/10/2021 12:00:00 AM EDT [facility] ([facility]) OFFICE OUTPATIENT VISIT 15 MINUTES 03/10/2021 12:00:00 AM EDT [facility] ([facility]) Trans Care SRV W/I 14D Of DC, Comm W/I 2 Dys Med Rec 01/22/2021 12:00:00 AM EDT [facility] ([facility] ) OFFICE OUTPATIENT VISIT 25 MINUTES 12/31/2020 12:00:00 AM EDT [facility] ([facility]) Trans Care SRV W/I 14D Of DC, Comm W/I 2 Dys Med Rec 12/03/2020 12:00:00 AM EDT [facility] ([facility] ) Spirometry 11/28/2020 12:00:00 AM EDT M [facility]ENT ([facility]) OFFICE OUTPATIENT VISIT 25 MINUTES 11/28/2020 12:00:00 AM EDT [facility] ([facility]) OFFICE OUTPATIENT VISIT 25 MINUTES 10/15/2020 12:00:00 AM EDT [facility] ([facility]) OFFICE OUTPATIENT VISIT 25 MINUTES 09/11/2020 12:00:00 AM EST [facility] ([facility]) Trans Care SRV W/I 14D Of DC, Comm W/I 2 Dys Med Rec 08/23/2020 12:00:00 AM EST [facility] ([facility] ) Endoscopy Upper GI Complex Diagnostic 06/27/2020 12:00 :00 AM EST [facility] ([facility] ) Dilate Esophagus Unguided Sound Or Bougie 06/27/2020 1 2:00:00 AM EST [facility] ([facility] ) Spirometry 06/25/2020 12:00:00 AM EST M EDENT ([facility]) Results ID Date Data Source [id number] 04/25/2021 10:44:00 AM EDT [facility] ([facility]) Name Value Range Interpretation Code Description Data Hannah rce(s) Supporting Document(s) Platelets [#/volume] in Blood by Automated count 435 150-450 [facility] ([facility]) ID Date Data Source [id number] 04/25/2021 10:44:00 AM EDT [facility] ([facility]) Name Value Range Interpretation Code Description Data Hannah rce(s) Supporting Document(s) Erythrocyte distribution width [Ratio] by Automated count 15.3 11.5-14.5 [facility] ([facility]) ID Date Data Source [id number] 04/25/2021 10:44:00 AM EDT [facility] ([facility]) Name Value Range Interpretation Code Description Data Hannah rce(s) Supporting Document(s) Erythrocyte mean corpuscular hemoglobin concentration [Mass/volume] by Automated count 30.5 32.0-36.5 [facility] ([facility]) ID Date Data Source [id number] 04/25/2021 10:44:00 AM EDT [facility] ([facility]) Name Value Range Interpretation Code Description Data Hannah rce(s) Supporting Document(s) Erythrocyte mean corpuscular hemoglobin [Entitic mass] by Au tomated count 25.7 27.0-33.0 [facility] ID Date Data Source [id number] 04/25/2021 10:44:00 AM EDT [facility] ([facility]) Name Value Range Interpretation Code Description Data Hannah rce(s) Supporting Document(s) Erythrocyte mean corpuscular volume [Entitic volume] by Auto mated count 84.2 80.0-96.0 [facility] ([facility] ID Date Data Source [id number] 04/25/2021 10:44:00 AM EDT [facility] ([facility]) Name Value Range Interpretation Code Description Data Hannah rce(s) Supporting Document(s) Hematocrit [Volume Fraction] of Blood by Automated count 40.6 4 2.0-52.0 [facility] ([facility] ID Date Data Source [id number] 04/25/2021 10:44:00 AM EDT [facility] ([facility]) Name Value Range Interpretation Code Description Data Hannah rce(s) Supporting Document(s) Hemoglobin [Mass/volume] in Blood 12.4 13.5-17.5 [facility] ([facility] ID Date Data Source [id number] 04/25/2021 10:44:00 AM EDT [facility] ([facility]) Name Value Range Interpretation Code Description Data Hannah rce(s) Supporting Document(s) Natriuretic peptide.B prohormone N-Terminal [Mass/volu me] in Serum or Plasma 30 [facility] ([facility]) ID Date Data Source [id number] 04/25/2021 10:44:00 AM EDT [facility] ([facility]) Name Value Range Interpretation Code Description Data Hannah rce(s) Supporting Document(s) Calcium [Moles/volume] in Serum or Plasma 9.1 8.8-10.2 [facility] ([facility] ID Date Data Source [id number] 04/25/2021 10:44:00 AM EDT [facility] ([facility]) Name Value Range Interpretation Code Description Data Hannah rce(s) Supporting Document(s) Glucose [Mass/volume] in Serum or Plasma 272 70-100 [facility] ([facility] ID Date Data Source [id number] 04/25/2021 10:44:00 AM EDT [facility] ([facility]) Name Value Range Interpretation Code Description Data Hannah rce(s) Supporting Document(s) Anion gap 3 in Serum or Plasma 6 8-16 [facility] ([facility] ID Date Data Source [id number] 04/25/2021 10:44:00 AM EDT [facility] ([facility]) Name Value Range Interpretation Code Description Data Hannah rce(s) Supporting Document(s) Carbon dioxide, total [Moles/volume] in Serum or Plasma 34 21 -32 [facility] ([facility] ID Date Data Source [id number] 04/25/2021 10:44:00 AM EDT [facility] ([facility]) Name Value Range Interpretation Code Description Data Hannah rce(s) Supporting Document(s) Chloride [Moles/volume] in Serum or Plasma 100 98-107 [facility] ([facility] ID Date Data Source [id number] 04/25/2021 10:44:00 AM EDT [facility] ([facility]) Name Value Range Interpretation Code Description Data Hannah rce(s) Supporting Document(s) Potassium [Moles/volume] in Serum or Plasma 4.2 3.5-5.1 [facility] ([facility] ID Date Data Source [id number] 04/25/2021 10:44:00 AM EDT [facility] ([facility]) Name Value Range Interpretation Code Description Data Hannah rce(s) Supporting Document(s) Sodium [Moles/volume] in Serum or Plasma 140 136-145 [facility] ([facility] ID Date Data Source [id number] 04/25/2021 10:44:00 AM EDT [facility] ([facility]) Name Value Range Interpretation Code Description Data Hannah rce(s) Supporting Document(s) Glomerular filtration rate/1.73 sq M.pre dicted [Volume Rate/Area] in Serum or Plasma by Creatinine-based formula (MDRD) Laboratory test result [facility] ([facility]) ID Date Data Source [id number] 04/25/2021 10:44:00 AM EDT [facility] ([facility]) Name Value Range Interpretation Code Description Data Hannah rce(s) Supporting Document(s) Creatinine [Mass/volume] in Serum or Plasma 0.97 0.70-1.30 [facility] ([facility] ID Date Data Source [id number] 04/25/2021 10:44:00 AM EDT [facility] ([facility]) Name Value Range Interpretation Code Description Data Hannah rce(s) Supporting Document(s) Urea nitrogen [Mass/volume] in Serum or Plasma 16 7-18 [facility] ([facility] ID Date Data Source [id number] 04/25/2021 10:44:00 AM EDT [facility] ([facility]) Name Value Range Interpretation Code Description Data Hannah rce(s) Supporting Document(s) Nucleated erythrocytes/100 leukocytes [Ratio] in Blood by Au tomated count 0.0 0-0 [facility] ([facility] ID Date Data Source [id number] 03/28/2021 01:39:00 PM EDT [facility] ([facility]) Name Value Range Interpretation Code Description Data Hannah rce(s) Supporting Document(s) Calcium [Mass/volume] in Serum or Plasma 8.6 [facility] ([facility]) Carbon dioxide, total [Moles/volume] in Serum or Plasma 40 [facility] ([facility]) Sodium 140 [facility] ([facility]) Chloride [Moles/volume] in Serum or Plasma 99 [facility] ([facility]) Potassium [Moles/volume] in Serum or Plasma 3.6 [facility] ([facility]) Creatinine 0.84 0.6-1.0 [facility] ([facility]) Glucose 200 83-110 [facility] ([facility]) Blood Urea Nitrogen 19 7-18 [facility] (Ca [facility]) Glomerular filtration rate/1.73 sq M.pre dicted [Volume Rate/Area] in Serum or Plasma by Creatinine-based formula (MDRD) Laboratory test result [facility] ([facility]) ID Date Data Source [id number] 03/28/2021 01:39:00 PM EDT [facility] ([facility]) Name Value Range Interpretation Code Description Data Hannah rce(s) Supporting Document(s) Magnesium Level 2.0 1.8-2.4 [facility] [place] Date Data Source [id number] 03/28/2021 11:21:00 AM EDT [facility] ([facility]) Name Value Range Interpretation Code Description Data Hannah rce(s) Supporting Document(s) Glucose [Mass/volume] in Capillary blood by Glucometer 278 80- 115 [facility] ([facility]) ID Date Data Source [id number] 03/28/2021 07:09:00 AM EDT [facility] ([facility]) Name Value Range Interpretation Code Description Data Hannah rce(s) Supporting Document(s) Magnesium [Mass/volume] in Serum or Plasma 2.0 1.8-2.4 [facility] ([facility]) ID Date Data Source [id number] 03/27/2021 01:37:00 PM EDT [facility] ([facility]) Name Value Range Interpretation Code Description Data Hannah rce(s) Supporting Document(s) Calcium [Mass/volume] in Serum or Plasma 9.2 [facility] ([facility]) Carbon dioxide, total [Moles/volume] in Serum or Plasma 41 [facility] ([facility]) Sodium 139 [facility] ([facility]) Chloride [Moles/volume] in Serum or Plasma 96 [facility] ([facility]) Potassium [Moles/volume] in Serum or Plasma 3.1 [facility] ([facility]) Glucose 234 83-110 [facility] ([facility]) Blood Urea Nitrogen 21 7-18 [facility] ([facility]) Creatinine 1.00 0.6-1.0 [facility] ([facility]) Glomerular filtration rate/1.73 sq M.pre dicted [Volume Rate/Area] in Serum or Plasma by Creatinine-based formula (MDRD) Laboratory test result [facility] ([facility]) ID Date Data Source [id number] 03/27/2021 01:37:00 PM EDT [facility] Name Value Range Interpretation Code Description Data Hannah rce(s) Supporting Document(s) Magnesium Level 2.0 1.8-2.4 [facility] ([facility]) ID Date Data Source [id number] 03/27/2021 01:37:00 PM EDT [facility] Name Value Range Interpretation Code Description Data Hannah rce(s) Supporting Document(s) White Blood Count 9.8 5.0-10.0 [facility] ([facility]) Red Blood Count 4.64 4.00-5.40 [facility] ([facility]) Platelets 314 172-450 [facility] Hematocrit 40.6 [facility] ([facility]) Hemoglobin 12.4 [facility] ([facility]) ID Date Data Source [id number] 03/27/2021 09:26:00 AM EDT [facility] Name Value Range Interpretation Code Description Data Hannah rce(s) Supporting Document(s) Basophils [#/volume] in Blood by Automated count 0.1 0.0-0.2 [facility] ([facility]) ID Date Data Source [id number] 03/27/2021 09:26:00 AM EDT [facility] ([facility]) Name Value Range Interpretation Code Description Data Hannah rce(s) Supporting Document(s) Eosinophils [#/volume] in Blood by Automated count 0.4 0.0-0.5 [facility] ([facility]) ID Date Data Source [id number] 03/27/2021 09:26:00 AM EDT [facility] Name Value Range Interpretation Code Description Data Hannah rce(s) Supporting Document(s) Monocytes [#/volume] in Blood by Automated count 0.9 0.0-0.8 [facility] ([facility]) ID Date Data Source [id number] 03/27/2021 09:26:00 AM EDT [facility] ([facility]) Name Value Range Interpretation Code Description Data Hannah rce(s) Supporting Document(s) Lymphocytes [#/volume] in Blood by Automated count 1.3 1.5-5.0 [facility] ([facility]) ID Date Data Source [id number] 03/27/2021 09:26:00 AM EDT [facility] ([facility]) Name Value Range Interpretation Code Description Data Hannah rce(s) Supporting Document(s) Neutrophils [#/volume] in Blood by Automated count 7.2 1.5-8.5 [facility] ([facility]) ID Date Data Source [id number] 03/27/2021 09:26:00 AM EDT [facility] ([facility]) Name Value Range Interpretation Code Description Data Hannah rce(s) Supporting Document(s) Immature granulocytes/100 leukocytes in Blood by Automated count 0.6 0-3.0 [facility] ([facility]) ID Date Data Source [id number] 03/27/2021 09:26:00 AM EDT [facility] ([facility]) Name Value Range Interpretation Code Description Data Hannah rce(s) Supporting Document(s) Basophils/100 leukocytes in Blood by Automated count 0.9 0.0-1 .0 [facility] ([facility]) ID Date Data Source [id number] 03/27/2021 09:26:00 AM EDT [facility] ([facility]) Name Value Range Interpretation Code Description Data Hannah rce(s) Supporting Document(s) Eosinophils/100 leukocytes in Blood by Automated count 3.9 0.0 -3.0 [facility] ([facility]) ID Date Data Source [id number] 03/27/2021 09:26:00 AM EDT [facility] ([facility]) Name Value Range Interpretation Code Description Data Hannah rce(s) Supporting Document(s) Monocytes/100 leukocytes in Blood by Automated count 8.7 2.0-8 .0 [facility] ([facility]) ID Date Data Source [id number] 03/27/2021 09:26:00 AM EDT [facility] ([facility]) Name Value Range Interpretation Code Description Data Hannah rce(s) Supporting Document(s) Lymphocytes/100 leukocytes in Blood by Automated count 12.9 24. 0-44.0 [facility] ([facility]) ID Date Data Source [id number] 03/27/2021 09:26:00 AM EDT [facility] ([facility]) Name Value Range Interpretation Code Description Data Hannah rce(s) Supporting Document(s) Neutrophils [#/volume] in Blood by Automated count 73.0 36.0-66 .0 [facility] ([facility]) ID Date Data Source [id number] 03/26/2021 01:27:00 PM EDT [facility] ([facility]) Name Value Range Interpretation Code Description Data Hannah rce(s) Supporting Document(s) Magnesium Level 2.0 1.8-2.4 [facility] ([facility]) ID Date Data Source [id number] 03/26/2021 01:27:00 PM EDT [facility] ([facility]) Name Value Range Interpretation Code Description Data Hannah rce(s) Supporting Document(s) Calcium [Mass/volume] in Serum or Plasma 8.2 [facility] ([facility]) Sodium 140 [facility] ([facility]) Carbon dioxide, total [Moles/volume] in Serum or Plasma 38 [facility] ([facility]) Chloride [Moles/volume] in Serum or Plasma 100 [facility] ([facility]) Potassium [Moles/volume] in Serum or Plasma 3.8 [facility] ([facility] [facility]) Glucose 184 83-110 MEDENT (Cardiology A [facility]) Blood Urea Nitrogen 25 7-18 [facility] ([facility]) Creatinine 1.03 0.6-1.0 [facility] ([facility]) Glomerular filtration rate/1.73 sq M.pre dicted [Volume Rate/Area] in Serum or Plasma by Creatinine-based formula (MDRD) Laboratory test result MEDENT (Cardiology [facility]) ID Date Data Source [id number] 03/26/2021 01:27:00 PM EDT MED[facility] ([facility]) Name Value Range Interpretation Code Description Data Hannah rce(s) Supporting Document(s) White Blood Count 13.0 5.0-10.0 [facility]) Platelets 299 172-450 [facility] ([facility]) Red Blood Count 4.20 4.00-5.40 MED[facility] (Cardio logy [facility]) Hemoglobin 11.2 [facility] ([facility]) Hematocrit 36.7 [facility] ([facility]) ID Date Data Source [id number] 03/25/2021 01:12:00 PM EDT MED[facility] (Cardi [facility]gy [facility]) Name Value Range Interpretation Code Description Data Hannah rce(s) Supporting Document(s) Red Blood Count 4.33 4.00-5.40 [facility] (Cardio logy [facility]) White Blood Count 12.6 5.0-10.0 [facility] ([facility]) Hemoglobin 11.5 [facility] ([facility]) Hematocrit 36.8 [facility] ([facility]) Platelets 288 172-450 MED[facility] ([facility]) ID Date Data Source [id number] 03/25/2021 01:12:00 PM EDT [facility] ([facility]) Name Value Range Interpretation Code Description Data Hannah rce(s) Supporting Document(s) Albumin [Mass/volume] in Serum or Plasma 2.6 [facility] ([facility]) Alanine aminotransferase [Enzymatic activity/volume] in Serum or Pl asma 19 [facility] ([facility]) Calcium [Mass/volume] in Serum or Plasma 8.6 [facility] ([facility]) Carbon dioxide, total [Moles/volume] in Serum or Plasma 34 [facility] ([facility]) Chloride [Moles/volume] in Serum or Plasma 100 [facility] ([facility]) Alkaline phosphatase [Enzymatic activity/volume] in Serum or Plasma 9 0 [facility] ([facility]) Potassium [Moles/volume] in Serum or Plasma 4.7 [facility] ([facility]) Aspartate aminotransferase [Enzymatic activity/volume] in Serum or Plasma 9 [facility] ([facility]) Protein [Mass/volume] in Serum or Plasma 6.5 [facility] ([facility]) Sodium 137 [facility] Urea nitrogen [Mass/volume] in Serum or Plasma 17 MEDENT (Cardiology [facility]) Glucose 284 83-110 [facility] ([facility]) Creatinine For GFR 0.85 [facility] ([facility]) ID Date Data Source [id number] 03/25/2021 01:12:00 PM EDT MEDENT ([facility]) Name Value Range Interpretation Code Description Data Hannah rce(s) Supporting Document(s) Thyroid Stimulating Hormone 0.307 ME DENT (Cardiology [facility]) ID Date Data Source [id number] 03/25/2021 11:37:00 AM EDT MEDENT ([facility]) Name Value Range Interpretation Code Description Data Hannah rce(s) Supporting Document(s) SCCmec + mecA+mecC pnl Nose Laboratory test result MEDENT (Cardiology [facility]) ID Date Data Source [id number] 03/25/2021 05:05:00 AM EDT MED[facility] ([facility]) Name Value Range Interpretation Code Description Data Hannah rce(s) Supporting Document(s) Albumin/Globulin Ratio 0.7 [facility] [place] ID Date Data Source [id number] 03/25/2021 05:05:00 AM EDT MEDENT ([facility]) Name Value Range Interpretation Code Description Data Hannah rce(s) Supporting Document(s) Thyrotropin [Units/volume] in Serum or Plasma by Detec tion limit <= 0.005 mIU/L 0.307 0.358-3.740 MED[facility] (Cytotechnologist/Cytology Supervisor [facility]) ID Date Data Source [id number] 03/25/2021 05:05:00 AM EDT MEDENT ([facility]) Name Value Range Interpretation Code Description Data Hannah rce(s) Supporting Document(s) Streptolysin O Ab [Units/volume] in Serum or Plasma 50.0 MEDENT (Cardiology [facility]) ID Date Data Source [id number] 03/25/2021 05:05:00 AM EDT MED[facility] ([facility]) Name Value Range Interpretation Code Description Data Hannah rce(s) Supporting Document(s) Albumin [Mass/volume] in Serum or Plasma 2.6 3.2-5.2 MEDENT (Cardiology [facility]) ID Date Data Source [id number] 03/25/2021 05:05:00 AM EDT MED[facility] ([facility]) Name Value Range Interpretation Code Description Data Hannah rce(s) Supporting Document(s) Protein [Mass/volume] in Serum or Plasma 6.5 6.4-8.2 [facility] [place] ID Date Data Source [id number] 03/25/2021 05:05:00 AM EDT MED[facility] ([facility]) Name Value Range Interpretation Code Description Data Hannah rce(s) Supporting Document(s) Bilirubin.total [Mass/volume] in Serum or Plasma 0.5 0.2-1.0 [facility] [place] ID Date Data Source [id number] 03/25/2021 05:05:00 AM EDT MED[facility] ([facility]) Name Value Range Interpretation Code Description Data Hannah rce(s) Supporting Document(s) Alkaline phosphatase [Enzymatic activity/volume] in Serum or Melissa sma 90 45-117 [facility] ([facility] ID Date Data Source [id number] 03/25/2021 05:05:00 AM EDT MED[facility] ([facility]) Name Value Range Interpretation Code Description Data Hannah rce(s) Supporting Document(s) Alanine aminotransferase [Enzymatic activity/volume] in Seru m or Plasma 19 12-78 [facility] ([facility] ID Date Data Source [id number] 03/25/2021 05:05:00 AM EDT MED[facility] ([facility]) Name Value Range Interpretation Code Description Data Hannah rce(s) Supporting Document(s) Aspartate aminotransferase [Enzymatic activity/volume] in Se rum or Plasma 9 7-37 [facility] ([facility] ID Date Data Source [id number] 03/24/2021 06:12:00 PM EDT MED[facility] ([facility]) Name Value Range Interpretation Code Description Data Hannah rce(s) Supporting Document(s) Bacteria identified in Blood by Culture Laboratory test result [facility] ([facility] ID Date Data Source [id number] 03/24/2021 05:09:00 PM EDT MED[facility] ([facility]) Name Value Range Interpretation Code Description Data Hannah rce(s) Supporting Document(s) Procalcitonin [Mass/volume] in Serum or Plasma Laboratory test result [facility] ([facility] ID Date Data Source [id number] 03/24/2021 03:08:00 PM EDT MED[facility] ([facility]) Name Value Range Interpretation Code Description Data Hannah rce(s) Supporting Document(s) C reactive protein [Mass/volume] in Serum or Plasma by High sensitivity method 5.46 0.00-0.30 [facility] (Cytotechnologist/Cytology 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[facility]) ID Date Data Source [id number] 03/24/2021 03:08:00 PM EDT MED[facility] ([facility]) Name Value Range Interpretation Code Description Data Hannah rce(s) Supporting Document(s) Troponin I.cardiac [Mass/volume] in Serum or Plasma Laboratory test result [facility] [place] [place] ID Date Data Source [id number] 03/24/2021 03:08:00 PM EDT MED[facility] ([facility]) Name Value Range Interpretation Code Description Data Hannah rce(s) Supporting Document(s) Creatine kinase.MB [Mass/volume] in Serum or Plasma 1.4 [facility] ([facility] ID Date Data Source [id number] 03/24/2021 03:08:00 PM EDT MED[facility] ([facility]) Name Value Range Interpretation Code Description Data Hannah rce(s) Supporting Document(s) Creatine kinase [Enzymatic activity/volume] in Serum or Plasma 53 39-308 [facility] ([facility] ID Date Data Source [id number] 03/24/2021 03:08:00 PM EDT MED[facility] ([facility]) Name Value Range Interpretation Code Description Data Hannah rce(s) Supporting Document(s) Creatine kinase.MB/Creatine kinase.total [Pure catalytic fraction] in Serum or Plasma by calculation 2.64 [facility] [place] Date Data Source [id number] 03/24/2021 03:08:00 PM EDT [facility] Name Value Range Interpretation Code Description Data Hannah rce(s) Supporting Document(s) SARS-CoV-2 (COVID 19) NEGATIVE - SARS-CoV-2 (COVID19) [facility] This lab was ordered by [facility] a nd reported by [facility]. ID Date Data Source [id number] 03/24/2021 01:21:00 PM EDT [facility] Name Value Range Interpretation Code Description Data Hannah rce(s) Supporting Document(s) White Blood Count 13.4 5.0-10.0 [facility] (Card [facility]) Red Blood Count 4.50 4.00-5.40 [facility] (Cardio [facility]y [facility]) Platelets 294 172-450 [facility] Hemoglobin 12.1 [facility] ([facility]) Hematocrit 38.6 [facility] ([facility]) ID Date Data Source [id number] 03/03/2021 12:41:00 PM EDT [facility] ([facility]) Name Value Range Interpretation Code Description Data Hannah rce(s) Supporting Document(s) Base excess in Venous blood by calculation 5.9 [facility] ([facility]) ID Date Data Source [id number] 03/03/2021 12:41:00 PM EDT MED[facility] ([facility]) Name Value Range Interpretation Code Description Data Hannah rce(s) Supporting Document(s) Sars coronavirus 2 Rna [Presence] in Res piratory specimen by Antelmo with probe detection Laboratory test result MED[facility] ([facility]) ID Date Data Source [id number] 03/03/2021 12:41:00 PM EDT MED[facility] ([facility]) Name Value Range Interpretation Code Description Data Hannah rce(s) Supporting Document(s) Respiratory syncytial virus RNA [Presenc e] in Nasopharynx by Probe and target amplification method Laboratory test result MED[facility] (Cardiology [facility]) ID Date Data Source [id number] 03/03/2021 12:41:00 PM EDT [facility] ([facility]) Name Value Range Interpretation Code Description Data Hannah rce(s) Supporting Document(s) Influenza virus B RNA [Presence] in Naso pharynx by Probe and target amplification method Laboratory test result [facility] [place] ID Date Data Source [id number] 03/03/2021 12:41:00 PM EDT MED[facility] ([facility]) Name Value Range Interpretation Code Description Data Hannah rce(s) Supporting Document(s) Influenza virus A RNA [Presence] in Naso pharynx by Probe and target amplification method Laboratory test result [facility] ([facility] ID Date Data Source [id number] 03/03/2021 12:41:00 PM EDT MED[facility] ([facility]) Name Value Range Interpretation Code Description Data Hannah rce(s) Supporting Document(s) Oxygen saturation in Venous blood 61.4 60.0-80.0 [facility] ([facility] ID Date Data Source [id number] 03/03/2021 12:41:00 PM EDT MED[facility] ([facility]) Name Value Range Interpretation Code Description Data Hannah rce(s) Supporting Document(s) Bicarbonate [Moles/volume] standard in Venous blood 28.9 [facility] ([facility] ID Date Data Source [id number] 03/03/2021 12:41:00 PM EDT MED[facility] ([facility]) Name Value Range Interpretation Code Description Data Hannah rce(s) Supporting Document(s) Bicarbonate [Moles/volume] in Venous blood 33.2 23.0-27.0 [facility] ([facility] ID Date Data Source [id number] 03/03/2021 12:41:00 PM EDT MED[facility] ([facility]) Name Value Range Interpretation Code Description Data Hannah rce(s) Supporting Document(s) Carbon dioxide, total [Moles/volume] in Venous blood by calc ulation 35.1 24.0-28.0 [facility] ([facility] ID Date Data Source [id number] 03/03/2021 12:41:00 PM EDT MED[facility] ([facility]) Name Value Range Interpretation Code Description Data Hannah rce(s) Supporting Document(s) Oxygen [Partial pressure] in Venous blood 34.9 30.0-50.0 [facility] ([facility]) ID Date Data Source [id number] 03/03/2021 12:41:00 PM EDT MED[facility] ([facility]) Name Value Range Interpretation Code Description Data Hannah rce(s) Supporting Document(s) Carbon dioxide [Partial pressure] in Venous blood 60.4 38.0-50. 0 MED[facility] (Cardiology [facility]) ID Date Data Source [id number] 03/03/2021 12:41:00 PM EDT MED[facility] ([facility]) Name Value Range Interpretation Code Description Data Hannah rce(s) Supporting Document(s) pH of Venous blood 7.358 7.330-7.430 [facility] (C [facility]di[facility]) ID Date Data Source [id number] 03/03/2021 12:41:00 PM EDT MED[facility] ([facility] Name Value Range Interpretation Code Description Data Hannah rce(s) Supporting Document(s) Venous PH 7.358 units 7.330-7.430 [facility] ([facility]) Venous Partial Pressure O2 34.9 mmHg 30.0-50.0 [facility] ([facility]) Venous Partial Pressure Co2 60.4 mmHg 38.0-50.0 [facility] ([facility]) Venous Total Co2 35.1 meq/L 24.0-28.0 [facility] Venous Hco3 33.2 meq/L 23.0-27.0 [facility] ([facility]) Venous O2 Saturation 61.4 % 60.0-80.0 [facility] Venous Standard Hco3 28.9 meq/L MED[facility] ( [facility]) Venous Base Excess 5.9 [facility] ID Date Data Source [id number] 03/03/2021 12:41:00 PM EDT [facility] ([facility]) Name Value Range Interpretation Code Description Data Hannah rce(s) Supporting Document(s) Influenza A Amplification Laboratory test result MED[facility] ([facility]) Negative results do not preclude influen za or RSV virus infection and should not be used as the sole basis for treatment or other patient management decisions. Influenza B Amplification Laboratory test result [facility] ([facility]) Negative results do not preclude influen za or RSV virus infection and should not be used as the sole basis for treatment or other patient management decisions. RSV Amplification Laboratory test result [facility] ([facility]) Negative results do not preclude influen za or RSV virus infection and should not be used as the sole basis for treatment or other patient management decisions. Laboratory test finding (navigational concept) Laboratory test result MED[facility] ([facility]) A false negative result may occur if a s pecimen is improperly collected, transported or handled. False [...] pathogens. DISCLAIMER: Testing was performed using the [facility] SARS-CoV-2 test. This test was developed and its performance characteristics determined by [employer]. This test has not been FDA cleared [...] the authorization is terminated or revoked sooner. ID Date Data Source [id number] 03/03/2021 12:41:00 PM EDT [facility] Name Value Range Interpretation Code Description Data Hannah rce(s) Supporting Document(s) SARS coronavirus 2 RNA [Presence] in Res piratory specimen by ANTELMO with probe detection NEGATIVE [facility] This lab was ordered by [facility] a nd reported by [facility]. ID Date Data Source [id number] 03/03/2021 12:12:00 PM EDT MED[facility] ([facility]) Name Value Range Interpretation Code Description Data Hannah rce(s) Supporting Document(s) Thyroxine (T4) [Mass/volume] in Serum or Plasma 6.9 4.5-12.0 [facility] ([facility]) ID Date Data Source [id number] 03/03/2021 12:12:00 PM EDT [facility] ([facility]) Name Value Range Interpretation Code Description Data Hannah rce(s) Supporting Document(s) Bilirubin.direct [Mass/volume] in Serum or Plasma 0.1 0.0-0.2 [facility] ([facility]) ID Date Data Source [id number] 03/03/2021 12:12:00 PM EDT MED[facility] ([facility] Name Value Range Interpretation Code Description Data Hananh rce(s) Supporting Document(s) Natriuretic peptide.B prohormone N-Terminal [Mass/volu me] in Serum or Plasma 25 pg/mL [facility] ([facility] Thyrotropin [Units/volume] in Serum or Plasma by Detec tion limit <= 0.05 mIU/L 1.610 uIU/ML 0.358-3.740 [facility] ([facility] Thyroxine (T4) Ab [Units/volume] in Serum 6.9 ug/dL 4.5-12.0 [facility] ([facility] ID Date Data Source [id number] 03/03/2021 12:12:00 PM EDT MED[facility] ([facility] [place] [facility] Name Value Range Interpretation Code Description Data Hannah rce(s) Supporting Document(s) Glucose, Fasting 195 mg/dL 70-100 [facility] ([facility]) Blood Urea Nitrogen 12 mg/dL 7-18 [facility] ([facility]) Creatinine For GFR 0.94 mg/dL 0.70-1.30 [facility] ([facility] [place] Sodium Level 138 meq/L 136-145 [facility] ([facility] Glomerular Filtration Rate Laboratory test result [facility] ([facility]) <content>Units are mL/min/1.73 m2</content>
<content></content>
<content>Chronic Kidney Disease Staging per NKF:</content>
<content></content>
<content>Stage I & II GFR >=60 Normal to Mildly Decreased</content>
<content>Stage III GFR 30- 59 Moderately Decreased</content>
<content>Stage IV GFR 15-29 Severely Decreased</content>
<content>Stage V GFR <15 Very Little GFR Left</content>
<content>ESRD GFR <15 on INFORMATICA ARCHITECT</content>
<content></content> Chloride Level 100 meq/L 98-107 [facility] ([facility]) Potassium Serum 4.6 meq/L 3.5-5.1 MED[facility] ([facility]) Calcium Level 8.3 mg/dL 8.8-10.2 [facility] ([facility]) Anion Gap 5 meq/L 8-16 [facility] ([facility]) Carbon Dioxide Level 33 meq/L 21-32 [facility] ([facility]) ID Date Data Source [id number] 03/03/2021 12:12:00 PM EDT MED[facility] ([facility]) Name Value Range Interpretation Code Description Data Hannah rce(s) Supporting Document(s) Ast/Sgot 13 U/L 7-37 [facility] ([facility]) Alkaline Phosphatase 101 U/L 45-117 [facility] ([facility]) Alt/SGPT 23 U/L 12-78 [facility] ([facility]) Bilirubin,Direct 0.1 mg/dL 0.0-0.2 [facility] ([facility] [place] Bilirubin,Total 0.4 mg/dL 0.2-1.0 [facility] ([facility]) Albumin 3.3 GM/DL 3.2-5.2 [facility] ([facility]) Total Protein 7.0 GM/DL 6.4-8.2 [facility] ([facility]) Albumin/Globulin Ratio 0.9 [facility] ([facility]) ID Date Data Source [id number] 03/03/2021 12:12:00 PM EDT [facility] ([facility]) Name Value Range Interpretation Code Description Data Hannah rce(s) Supporting Document(s) CK-MB Value Mass 2.2 ng/mL [facility] ([facility]) CPK Creatine Phosphokinase 74 U/L 39-308 [facility] ([facility]) MB/CK Relative Index 2.97 [facility] ([facility]) <content>DIAGNOSIS CRITERIA</content>
<content>MMB ng/ml Relative Index (RI)</content>
<content>NON-AMI < or = 5 N/A</content>
<content>TELLO ZONE > 5 < or = 4</content>
<content>AMI > 5 > 4</content>
<content></content> Troponin I Laboratory test result [facility] ([facility]) <content>Troponin I Reference Interval f or Siemens Burnet LOCI:</content>
<content></content>
<content>99th Percentile= 0.00-0.045 ng/ml</content>
<content></content>
<content>Risk Stratification:</content>
<content><= 0.10 ng/ml Decreased Risk for Adverse Clinical</content>
<content>Events.</content>
<content>0.10-1.50 ng/ml Increased Risk for Adverse Clinical</content>
<content>Events. Evaluation of additional</content>
<content>criterion and/or repeat testing in 2-6</content>
<content>hours is suggested to rule out myocardial</content>
<content>damage.</content>
<content>>= 1.50 ng/ml Indicative of Myocardial Injury.</content>
<content></content> ID Date Data Source [id number] 03/03/2021 12:12:00 PM EDT [facility]) Name Value Range Interpretation Code Description Data Hannah rce(s) Supporting Document(s) White Blood Count 14.9 10 4.0-10.0 [facility] ([facility]) Red Blood Count 4.86 10 4.30-6.10 [facility] ([facility]) Hemoglobin 12.9 g/dL 13.5-17.5 [facility] ([facility]) Mean Corpuscular Volume 86.2 fl 80.0-96.0 [facility] ([facility]) Hematocrit 41.9 % 42.0-52.0 [facility] ([facility] Mean Corpuscular Hemoglobin 26.5 pg 27.0-33.0 ME [facility] ([facility]) Red Cell Distribution Width 17.1 % 11.5-14.5 ME [facility] ([facility]) Mean Corpuscular HGB Conc 30.8 g/dL 32.0-36.5 [facility] ([facility]) Platelet Count, Automated 390 10 150-450 [facility] ([facility]) Neutrophils % 80.2 % 36.0-66.0 [facility] [facility]) [place] % 6.7 % 2.0-8.0 [facility] ([facility]) Lymph % 9.5 % 24.0-44.0 [facility]) Eos % 2.3 % 0.0-3.0 [facility] ([facility]) Baso % 0.6 % 0.0-1.0 [facility] ([facility]) Immature Granulocyte % 0.7 % 0-3.0 [facility] ([facility]) Lymph # 1.4 10 1.5-5.0 [facility] ([facility]) Neutrophils # 11.9 10 1.5-8.5 [facility] ([facility]) Nucleated Red Blood Cell % 0.0 % 0-0 [facility] ([facility]) [place] # 1.0 10 0.0-0.8 [facility] ([facility]) Eos # 0.4 10 0.0-0.5 [facility] ([facility]) Baso # 0.1 10 0.0-0.2 [facility] ([facility]) ID Date Data Source [id number] 02/19/2021 12:30:00 PM EDT [facility]) Name Value Range Interpretation Code Description Data Hannah rce(s) Supporting Document(s) Calcium [Mass/volume] in Serum or Plasma 9.0 [facility] ([facility]) Sodium 141 [facility] ([facility]) Carbon dioxide, total [Moles/volume] in Serum or Plasma 43 [facility] ([facility]) Chloride [Moles/volume] in Serum or Plasma 95 [facility] (Cardiology [facility]) Glucose 83 83-110 [facility] ([facility]) Potassium [Moles/volume] in Serum or Plasma 2.9 [facility] (Cardiology [facility]) Blood Urea Nitrogen 22 7-18 [facility] (Ca rdiology [facility]) Creatinine 0.87 0.6-1.0 [facility] (Cardiology [facility]) Glomerular filtration rate/1.73 sq M.pre dicted [Volume Rate/Area] in Serum or Plasma by Creatinine-based formula (MDRD) Laboratory test result [facility] (Cardiology [facility]) ID Date Data Source [id number] 02/19/2021 12:30:00 PM EDT [facility] ([facility]) Name Value Range Interpretation Code Description Data Hannah rce(s) Supporting Document(s) White Blood Count 15.6 5.0-10.0 [facility] ([facility]) Red Blood Count 4.70 4.00-5.40 [facility] (Cardio logy [facility]) Platelets 353 172-450 [facility] ([facility]) Hemoglobin 12.4 [facility] (Cardiology [facility]) Hematocrit 39.8 [facility] ([facility]iology [facility]) ID Date Data Source [id number] 02/16/2021 05:02:00 PM EDT [facility] ([facility]) Name Value Range Interpretation Code Description Data Hannah rce(s) Supporting Document(s) Lactic Acid Level 1.5 0.4-2.0 [facility] ([facility]) ID Date Data Source [id number] 02/16/2021 05:02:00 PM EDT [facility] ([facility]) Name Value Range Interpretation Code Description Data Hannah rce(s) Supporting Document(s) CK-MB Value Mass 1.7 ng/mL [facility] ([facility]) CPK Creatine Phosphokinase 51 U/L 39-308 [facility] ([facility]) MB/CK Relative Index 3.33 [facility] ([facility]) <content>DIAGNOSIS CRITERIA</content>
<content>MMB ng/ml Relative Index (RI)</content>
<content>NON-AMI < or = 5 N/A</content>
<content>TELLO ZONE > 5 < or = 4</content>
<content>AMI > 5 > 4</content>
<content></content> Troponin I Laboratory test result [facility]) <content>Troponin I Reference Interval f or Siemens Burnet LOCI:</content>
<content></content>
<content>99th Percentile= 0.00-0.045 ng/ml</content>
<content></content>
<content>Risk Stratification:</content>
<content><= 0.10 ng/ml Decreased Risk for Adverse Clinical</content>
<content>Events.</content>
<content>0.10-1.50 ng/ml Increased Risk for Adverse Clinical</content>
<content>Events. Evaluation of additional</content>
<content>criterion and/or repeat testing in 2-6</content>
<content>hours is suggested to rule out myocardial</content>
<content>damage.</content>
<content>>= 1.50 ng/ml Indicative of Myocardial Injury.</content>
<content></content> ID Date Data Source [id number] 02/16/2021 05:02:00 PM EDT [facility]) Name Value Range Interpretation Code Description Data Hannah rce(s) Supporting Document(s) Venous PH 7.391 units 7.330-7.430 [facility] ([facility]) Venous Partial Pressure Co2 51.4 mmHg 38.0-50.0 [facility] ([facility]) Venous Partial Pressure O2 51.8 mmHg 30.0-50.0 [facility] ([facility]) Venous Total Co2 32.1 meq/L 24.0-28.0 [facility] ([facility]) Venous Base Excess 4.3 [facility] ([facility]) Venous Hco3 30.5 meq/L 23.0-27.0 [facility] ([facility]) Venous O2 Saturation 86.8 % 60.0-80.0 [facility] ([facility]) Venous Standard Hco3 28.0 meq/L [facility] ( [facility]) ID Date Data Source [id number] 02/16/2021 05:02:00 PM EDT [facility] ([facility]) Name Value Range Interpretation Code Description Data Hannah rce(s) Supporting Document(s) Hemoglobin 14.0 g/dL 13.5-17.5 [facility] ([facility]) Red Blood Count 5.40 10 4.30-6.10 [facility] ([facility]) White Blood Count 14.4 10 4.0-10.0 [facility] ([facility]) Mean Corpuscular Volume 85.6 fl 80.0-96.0 [facility] ([facility]) Hematocrit 46.2 % 42.0-52.0 [facility] ([facility]) Mean Corpuscular Hemoglobin 25.9 pg 27.0-33.0 RI [facility] ([facility]) Mean Corpuscular HGB Conc 30.3 g/dL 32.0-36.5 MEDE NT ([facility]) Red Cell Distribution Width 18.1 % 11.5-14.5 [facility] ([facility]) Neutrophils % 78.9 % 36.0-66.0 [facility] ([facility]) Platelet Count, Automated 331 10 150-450 MEDE NT ([facility]) [place] % 5.7 % 2.0-8.0 [facility] ([facility]) Lymph % 10.8 % 24.0-44.0 [facility] ([facility]) Eos % 3.3 % 0.0-3.0 [facility] ([facility]) Baso % 0.9 % 0.0-1.0 [facility] ([facility]) Immature Granulocyte % 0.4 % 0-3.0 [facility] ([facility]) Neutrophils # 11.4 10 1.5-8.5 [facility] ([facility]) Nucleated Red Blood Cell % 0.0 % 0-0 [facility] ([facility]) Lymph # 1.6 10 1.5-5.0 [facility]) Eos # 0.5 10 0.0-0.5 [facility] ([facility]) [place] # 0.8 10 0.0-0.8 [facility] ([facility]) Baso # 0.1 10 0.0-0.2 [facility] ([facility]) ID Date Data Source [id number] 02/16/2021 05:02:00 PM EDT [facility] ([facility]) Name Value Range Interpretation Code Description Data Hannah rce(s) Supporting Document(s) Lactate [Mass/volume] in Serum or Plasma 1.5 mmol/L 0.4-2.0 [facility] ([facility]) Y/N query for Sepsis Lactate Rule: Y ID Date Data Source [id number] 02/16/2021 05:02:00 PM EDT [facility] ([facility]) Name Value Range Interpretation Code Description Data Hannah rce(s) Supporting Document(s) Ast/Sgot 11 U/L 7-37 [facility] ([facility]) Alt/SGPT 26 U/L 12-78 [facility] ([facility]) Bilirubin,Total 0.5 mg/dL 0.2-1.0 [facility] ([facility]) Alkaline Phosphatase 112 U/L 45-117 [facility] ([facility]) Total Protein 7.4 GM/DL 6.4-8.2 [facility] ([facility]) Bilirubin,Direct 0.2 mg/dL 0.0-0.2 [facility] ([facility]) Albumin/Globulin Ratio 0.9 [facility] ([facility]) Albumin 3.6 GM/DL 3.2-5.2 [facility]) ID Date Data Source [id number] 02/16/2021 05:02:00 PM EDT [facility] ([facility]) Name Value Range Interpretation Code Description Data Hannah rce(s) Supporting Document(s) Blood Urea Nitrogen 18 mg/dL 7-18 [facility] ([facility]) Glucose, Fasting 181 mg/dL 70-100 [facility] ([facility]) Creatinine For GFR 0.89 mg/dL 0.70-1.30 [facility] ([facility]) Sodium Level 137 meq/L 136-145 [facility] ([facility]) Glomerular Filtration Rate Laboratory test result [facility] ([facility]) <content>Units are mL/min/1.73 m2</content>
<content></content>
<content>Chronic Kidney Disease Staging per NKF:</content>
<content></content>
<content>Stage I & II GFR >=60 Normal to Mildly Decreased</content>
<content>Stage III GFR 30- 59 Moderately Decreased</content>
<content>Stage IV GFR 15-29 Severely Decreased</content>
<content>Stage V GFR <15 Very Little GFR Left</content>
<content>ESRD GFR <15 on INFORMATICA ARCHITECT</content>
<content></content> Potassium Serum 4.3 meq/L 3.5-5.1 [facility] ([facility]) Chloride Level 100 meq/L 98-107 [facility] ([facility]) Anion Gap 6 meq/L 8-16 [facility] Carbon Dioxide Level 31 meq/L 21-32 [facility] ([facility]) Calcium Level 9.2 mg/dL 8.8-10.2 [facility] ([facility]) ID Date Data Source [id number] 02/16/2021 05:02:00 PM EDT [facility] ([facility]) Name Value Range Interpretation Code Description Data Hannah rce(s) Supporting Document(s) Thyroxine (T4) Ab [Units/volume] in Serum 6.6 ug/dL 4.5-12.0 [facility] Natriuretic peptide.B prohormone N-Terminal [Mass/volu me] in Serum or Plasma 27 pg/mL [facility] Thyrotropin [Units/volume] in Serum or Plasma by Detec tion limit <= 0.05 mIU/L 1.250 uIU/ML 0.358-3.740 [facility] ([facility] ID Date Data Source [id number] 02/16/2021 05:02:00 PM EDT [facility] Name Value Range Interpretation Code Description Data Hannah rce(s) Supporting Document(s) Respiratory Panel Laboratory test result [facility] ([facility]) This respiratory PCR panel detects Influ margi [...] - SARS-CoV-2 (COVID19) ID Date Data Source [id number] 02/16/2021 05:02:00 PM EDT [facility] Name Value Range Interpretation Code Description Data Hannah rce(s) Supporting Document(s) SARS-CoV-2 (COVID 19) NEGATIVE - SARS-CoV-2 (COVID19) [facility] This lab was ordered by [facility] a nd reported by [facility]. ID Date Data Source [id number] 02/16/2021 12:25:00 PM EDT [facility] ([facility]) Name Value Range Interpretation Code Description Data Hannah rce(s) Supporting Document(s) Red Blood Count 5.40 4.00-5.40 [facility] ([facility]) White Blood Count 14.4 5.0-10.0 [facility] (Card [facility]ology [facility]) Platelets 331 172-450 [facility] ([facility]) Hemoglobin 14.0 [facility] ([facility]) Hematocrit 46.2 [facility] ([facility]) ID Date Data Source [id number] 02/16/2021 12:25:00 PM EDT [facility] ([facility]) Name Value Range Interpretation Code Description Data Hannah rce(s) Supporting Document(s) Alanine aminotransferase [Enzymatic activity/volume] in Serum or Pl asma 26 [facility] ([facility]) Albumin [Mass/volume] in Serum or Plasma 3.6 [facility] ([facility]) Calcium [Mass/volume] in Serum or Plasma 9.2 [facility] ([facility]) Carbon dioxide, total [Moles/volume] in Serum or Plasma 31 [facility] ([facility]) Chloride [Moles/volume] in Serum or Plasma 100 [facility] ([facility]) Potassium [Moles/volume] in Serum or Plasma 4.3 [facility] ([facility]) Alkaline phosphatase [Enzymatic activity/volume] in Serum or Plasma 1 12 [facility] ([facility]) Protein [Mass/volume] in Serum or Plasma 7.4 [facility] ([facility]) Aspartate aminotransferase [Enzymatic activity/volume] in Serum or Plasma 11 [facility] ([facility]) Sodium 137 [facility] ([facility]) Urea nitrogen [Mass/volume] in Serum or Plasma 18 [facility] (Cardiology [facility]) Glucose 181 83-110 [facility] ([facility]) Creatinine For GFR 0.89 [facility] ([facility]) ID Date Data Source [id number] 02/16/2021 12:25:00 PM EDT [facility] ([facility]) Name Value Range Interpretation Code Description Data Hananh rce(s) Supporting Document(s) Thyroid Stimulating Hormone 1.250 [facility] ([facility]) ID Date Data Source [id number] 01/27/2021 06:16:00 AM EDT [facility] ([facility]) Name Value Range Interpretation Code Description Data Hannah rce(s) Supporting Document(s) Hemoglobin A1c/Hemoglobin.total in Blood 8.6 [facility] ([facility]) ID Date Data Source [id number] 01/27/2021 06:16:00 AM EDT [facility] ([facility]) Name Value Range Interpretation Code Description Data Hannah rce(s) Supporting Document(s) Glucose mean value [Mass/volume] in Blood Estimated fr om glycated hemoglobin 200 60-110 [facility] ([facility]) ID Date Data Source [id number] 01/26/2021 03:52:00 PM EDT [facility] ([facility] Name Value Range Interpretation Code Description Data Hannah rce(s) Supporting Document(s) Laboratory test finding (navigational concept) 7.364 units 7.350-7.45 0 [facility] ([facility]) Laboratory test finding (navigational concept) 56.8 MMHG 35.0-45.0 [facility] ([facility]) Laboratory test finding (navigational concept) 77.0 MMHG 80-105 [facility] ([facility]) Laboratory test finding (navigational concept) 34.0 mmol/L 23.0-27.0 [facility] ([facility]) Laboratory test finding (navigational concept) 32.4 mmol/L 22.0-26.0 [facility] ([facility]) Laboratory test finding (navigational concept) 7.0 mmol/L [facility] ([facility]) Laboratory test finding (navigational concept) 94 % 95-98 [facility] ([facility]) ID Date Data Source [id number] 01/26/2021 03:52:00 PM EDT [facility] ([facility]) Name Value Range Interpretation Code Description Data Hnanah rce(s) Supporting Document(s) Oxygen saturation Calculated from oxygen partial pressure in Arterial blood 94 95-98 [facility] ([facility]iology [facility]) ID Date Data Source [id number] 01/26/2021 03:52:00 PM EDT [facility] ([facility]) Name Value Range Interpretation Code Description Data Hannah rce(s) Supporting Document(s) Base excess standard in Arterial blood by calculation 7.0 [facility]) ID Date Data Source [id number] 01/26/2021 03:52:00 PM EDT [facility] ([facility]) Name Value Range Interpretation Code Description Data Hannah rce(s) Supporting Document(s) Laboratory test finding (navigational concept) 34.0 23.0-27.0 [facility] ([facility]) ID Date Data Source [id number] 01/26/2021 03:52:00 PM EDT [facility] ([facility]) Name Value Range Interpretation Code Description Data Hannah rce(s) Supporting Document(s) Oxygen [Partial pressure] in Arterial blood 77.0 80-105 [facility] ([facility]) ID Date Data Source [id number] 01/26/2021 03:52:00 PM EDT [facility] ([facility]) Name Value Range Interpretation Code Description Data Hannah rce(s) Supporting Document(s) Carbon dioxide [Partial pressure] in Arterial blood 56.8 35.0-4 5.0 [facility] ([facility]) ID Date Data Source [id number] 01/26/2021 03:52:00 PM EDT [facility] ([facility]) Name Value Range Interpretation Code Description Data Hannah rce(s) Supporting Document(s) Bicarbonate [Moles/volume] in Arterial blood 32.4 22.0-26.0 [facility] ([facility]) ID Date Data Source [id number] 01/26/2021 03:52:00 PM EDT [facility] ([facility]) Name Value Range Interpretation Code Description Data Hannah rce(s) Supporting Document(s) pH of Arterial blood 7.364 7.350-7.450 [facility] ([facility]) ID Date Data Source [id number] 01/26/2021 02:53:00 PM EDT [facility] ([facility]) Name Value Range Interpretation Code Description Data Hannah rce(s) Supporting Document(s) Laboratory test finding (navigational concept) 0.00 ng/mL 0.00-0.08 [facility] ([facility]) ID Date Data Source [id number] 01/26/2021 02:53:00 PM EDT [facility] ([facility]) Name Value Range Interpretation Code Description Data Hannah rce(s) Supporting Document(s) Troponin I.cardiac [Mass/volume] in Blood 0.00 0.00-0.08 [facility] ([facility]) ID Date Data Source [id number] 01/26/2021 02:49:00 PM EDT [facility] Name Value Range Interpretation Code Description Data Hannah rce(s) Supporting Document(s) SARS-CoV-2 (COVID 19) NEGATIVE - SARS-CoV-2 (COVID19) [facility] This lab was ordered by [facility] a nd reported by [facility]. ID Date Data Source [id number] 01/11/2021 07:39:00 AM EDT [facility] ([facility]) Name Value Range Interpretation Code Description Data Hannah rce(s) Supporting Document(s) Laboratory test finding (navigational concept) 7.389 units 7.350-7.45 0 [facility] ([facility]) Laboratory test finding (navigational concept) 59.8 MMHG 35.0-45.0 [facility] ([facility]) Laboratory test finding (navigational concept) 77.0 MMHG 80-105 [facility] ([facility]) Laboratory test finding (navigational concept) 11.0 mmol/L [facility] ([facility]) Laboratory test finding (navigational concept) 36.1 mmol/L 22.0-26.0 [facility] ([facility]) Laboratory test finding (navigational concept) 38.0 mmol/L 23.0-27.0 [facility] ([facility]) Laboratory test finding (navigational concept) 95 % 95-98 [facility] ([facility]) ID Date Data Source [id number] 01/11/2021 05:51:00 AM EDT [facility] ([facility]) Name Value Range Interpretation Code Description Data Hannah rce(s) Supporting Document(s) pH of Arterial blood 7.312 7.350-7.450 [facility] ([facility]) ID Date Data Source [id number] 01/11/2021 05:51:00 AM EDT [facility] ([facility]) Name Value Range Interpretation Code Description Data Hannah rce(s) Supporting Document(s) Carbon dioxide [Partial pressure] in Arterial blood 60.4 35.0-4 5.0 [facility] ([facility]) ID Date Data Source [id number] 01/11/2021 05:51:00 AM EDT [facility] ([facility]) Name Value Range Interpretation Code Description Data Hannah rce(s) Supporting Document(s) Oxygen [Partial pressure] in Arterial blood 101.6 75.0-100.0 [facility] ([facility] ID Date Data Source [id number] 01/11/2021 05:51:00 AM EDT [facility] ([facility]) Name Value Range Interpretation Code Description Data Hannah rce(s) Supporting Document(s) Carbon dioxide, total [Moles/volume] in Arterial blood by ca lculation 31.7 23.0-31.0 [facility] ([facility] ID Date Data Source [id number] 01/11/2021 05:51:00 AM EDT [facility] ([facility]) Name Value Range Interpretation Code Description Data Hannah rce(s) Supporting Document(s) Bicarbonate [Moles/volume] in Arterial blood 29.9 22.0-26.0 [facility] ([facility] ID Date Data Source [id number] 01/11/2021 05:51:00 AM EDT [facility] ([facility]) Name Value Range Interpretation Code Description Data Hannah rce(s) Supporting Document(s) Base excess in Arterial blood by calculation 2.2 [facility] ([facility] ID Date Data Source [id number] 01/11/2021 05:51:00 AM EDT [facility] ([facility]) Name Value Range Interpretation Code Description Data Hannah rce(s) Supporting Document(s) Bicarbonate [Moles/volume] standard in Arterial blood 26.4 22.0 -26.0 [facility] ([facility]iology [facility]) ID Date Data Source [id number] 01/11/2021 05:51:00 AM EDT [facility] ([facility]) Name Value Range Interpretation Code Description Data Hannah rce(s) Supporting Document(s) Oxygen saturation in Arterial blood 97.6 95.0-99.0 [facility] ([facility]iology [facility]) ID Date Data Source [id number] 01/11/2021 04:11:00 AM EDT [facility] Name Value Range Interpretation Code Description Data Hannah rce(s) Supporting Document(s) SARS-CoV-2 (COVID 19) NEGATIVE - SARS-CoV-2 (COVID19) [facility] This lab was ordered by [facility] a nd reported by [facility]. ID Date Data Source [id number] 01/11/2021 03:59:00 AM EDT [facility] ([facility]) Name Value Range Interpretation Code Description Data Hannah rce(s) Supporting Document(s) Thyroxine (T4) free [Mass/volume] in Serum or Plasma 0.84 0.76- 1.46 [facility] ([facility]) ID Date Data Source [id number] 12/31/2020 11:19:00 AM EDT [facility] ([facility] Name Value Range Interpretation Code Description Data Hannah rce(s) Supporting Document(s) Leukocytes [#/volume] in Blood by Automated count 18.3 x10*3/UL 4.1-1 0.9 [facility] ([facility]) NOTE: RESULT VERIFIED. Erythrocytes [#/volume] in Blood by Automated count 5.00 x10*6/UL 4.2 0-6.30 [facility] ([facility] Hematocrit [Volume Fraction] of Blood by Automated count 41.2 % 3 7.0-51.0 [facility] ([facility] Hemoglobin [Mass/volume] in Blood 13.3 g/dL 12.0-18.0 [facility] ([facility]) MCH 26.6 pg 26.0-32.0 [facility] MCV 82.4 fL 80.0-97.0 [facility] ([facility]) MCHC 32.2 g/dL 31.0-38.0 [facility] ([facility]) Platelets [#/volume] in Blood by Automated count 519 x10*3/UL 140-440 [facility] ([facility] Erythrocyte distribution width [Ratio] by Automated count 15.6 % 11.6-13.7 [facility] ([facility]) MPV 7.6 FL 7.8-11.0 [facility] Mid % 2.4 % 1.7-9.3 [facility] Neut % 88.9 % 37.0-92.0 [facility] Lymph % 8.7 % 10.0-58.5 [facility] Lymph # 1.6 x10*3/UL 0.6-4.1 [facility] ([facility]) Mid # 0.4 x10*3/UL 0.1-0.6 [facility] ([facility]) Neut # 16.3 x10*3/UL 2.0-7.8 [facility] ([facility]) ID Date Data Source [id number] 12/31/2020 11:19:00 AM EDT [facility] ([facility]) Name Value Range Interpretation Code Description Data Hannah rce(s) Supporting Document(s) Urea nitrogen [Mass/volume] in Serum or Plasma 17 mg/dL 7-18 [facility] ([facility]) Glucose [Mass/volume] in Serum or Plasma 202 mg/dL 74-99 [facility] ([facility]) 100-125 mg/dL PRE-DIABETES/FASTING >126 mg/dL DIABETES/FASTING Creatinine 0.9 mg/dL 0.6-1.3 [facility] ([facility]) Sodium [Moles/volume] in Serum or Plasma 142 meq/L 136-145 [facility] ([facility]) Potassium [Moles/volume] in Serum or Plasma 4.6 meq/L 3.5-5.1 [facility] ([facility]) Chloride [Moles/volume] in Serum or Plasma 102 meq/L 98-107 [facility] ([facility]) Carbon dioxide, total [Moles/volume] in Serum or Plasma 35 meq/L 21 -32 [facility] ([facility]) NOTE: RESULT VERIFIED. Alkaline phosphatase isoenzyme [Units/volume] in Serum or Pl asma 112 mg/dL 46-116 [facility] ([facility]) Calcium [Mass/volume] in Serum or Plasma 9.2 mg/dL 8.5-10.1 [facility] ([facility]) Total Bilirubin 0.3 mg/dL 0.2-1.0 [facility] ([facility]) Aspartate aminotransferase [Enzymatic activity/volume] in Serum or Plasma 12 U/L 15-37 [facility] ([facility] ) Alanine aminotransferase [Enzymatic activity/volume] in Seru m or Plasma 21 U/L 12-78 [facility] ([facility]) Albumin [Mass/volume] in Serum or Plasma 3.0 g/dL 3.4-5.0 [facility] ([facility]) Proteinase 3 Ab [Units/volume] in Serum 6.5 g/dL 6.4-8.2 [facility] ([facility]) Glomerular filtration rate/1.73 sq M pre dicted among blacks [Volume Rate/Area] in Serum or Plasma by Creatinine-based formula (MDRD) Laboratory test result [facility] <content>CHRONIC KIDNEY DISEASE STAGING PER NKF</content>
<content></content>
<content>STAGE I & II GFR >= 60 NORMAL TO MILDLY DECREASED</content>
<content>STAGE III GFR 30-59 MODERATELY DECREASED</content>
<content>STAGE IV GFR 15-29 SEVERELY DECREASED</content>
<content>STAGE V GFR <15 VERY LITTLE GFR LEFT</content>
<content>ESRD GFR <15 ON INFORMATICA ARCHITECT</content>
<content></content> A/G Ratio 0.86 CALC 1.00-1.90 [facility]) Glomerular filtration rate/1.73 sq M pre dicted among non-blacks [Volume Rate/Area] in Serum or Plasma by Creatinine-based formula (MDRD) Laboratory test result [facility] ([facility] ) ID Date Data Source [id number] 12/31/2020 11:19:00 AM EDT [facility] ([facility]) Name Value Range Interpretation Code Description Data Hannah rce(s) Supporting Document(s) Hemoglobin A1c/Hemoglobin.total in Blood 8.5 % [facility] ([facility]) Lab Result Notes: Pre-Diabetes 5.7 - 6.4 % Diabetes = or > 6.5% Glucose mean value [Mass/volume] in Blood Estimated fr om glycated hemoglobin 197 mg/dL 60-110 [facility] ([facility] ) ID Date Data Source [id number] 11/28/2020 10:30:00 AM EDT [facility] ([facility]) Name Value Range Interpretation Code Description Data Hannah rce(s) Supporting Document(s) PDFReport Laboratory test result [facility] ([facility], ) FVC-Pre 0.82 L [facility] ([facility]) FVC-%Pred-Pre 17 L [facility] ([facility]) FVC-Pred 4.61 L [facility] ([facility]) Fev1-Pred 3.44 L [facility] ([facility]) FVC-LLN 3.67 L [facility] ([facility]) Fev1-Pre 0.60 L [facility] ([facility]) Fev1-LLN 2.65 L [facility] ([facility]) Fev1-%Pred-Pre 17 L [facility] ([facility]) Fev6-%Pred-Pre 18 L [facility] ([facility]) Fev6-Pred 4.37 L [facility] ([facility]) Fev6-Pre 0.82 L [facility] ([facility]) Fev6-LLN 3.46 L [facility] ([facility]) Ovd5vly-Hqbb 75 % [facility] ([facility]) Aqm2ngq-Zaj 74 % [facility] ([facility]) Knp7vup-RWT 65 % [facility] ([facility]) Ofq1nty-%Pred-Pre 99 % [facility] ([facility]) Jmf5vxu-Ttgn 95 % [facility] ([facility]) Fpm3har-%Pred-Pre 105 % [facility] ([facility]) Jrk3wry-Xnu 100 % [facility] ([facility]) FEFMax-%Pred-Pre 10 L/E/sec [facility] ([facility], ) FEFMax-Pre 0.96 L/E/sec [facility] ([facility]) FEFMax-Pred 8.82 L/E/sec [facility] ([facility], ) Uyi4887-Zub 0.49 L/E/sec [facility] ([facility], ) Stc4690-Xwmm 2.72 L/E/sec [facility] ([facility], ) FEFMax-LLN 6.50 L/E/sec [facility] ([facility]) Hpr1070-JTN 1.12 L/E/sec [facility] ([facility]) Yol3202-%Pred-Pre 18 L/E/sec [facility] ([facility]) Ctt9nhw1-Hgwl 78 % [facility] ([facility]) ExpTime-Pre 2.65 sec [facility] ([facility]) Jmm2hfp5-Kio 74 % [facility] ([facility]) Pwo8juo8-%Pred-Pre 94 % [facility] ([facility]) Hhg7dtn3-OCT 69 % [facility] ([facility]) ID Date Data Source [id number] 11/21/2020 07:03:00 AM EDT [facility] ([facility]) Name Value Range Interpretation Code Description Data Hannah rce(s) Supporting Document(s) Aspergillus fumigatus IgE Ab [Units/volume] in Serum Laboratory joseph t result [facility] ([facility]) ID Date Data Source [id number] 11/21/2020 07:03:00 AM EDT [facility] ([facility]) Name Value Range Interpretation Code Description Data Hannah rce(s) Supporting Document(s) Aspergillus niger IgE Ab [Units/volume] in Serum Laboratory test resu lt [facility] ([facility]) ID Date Data Source [id number] 11/20/2020 01:29:00 PM EDT [facility] ([facility]) Name Value Range Interpretation Code Description Data Hannah rce(s) Supporting Document(s) ABG pH (Arterial) 7.459 units 7.350-7.450 [facility] ( [facility]) ABG Partial Pressure Co2 39.5 mmHg 35.0-45.0 [facility] T ([facility]) ABG Partial Pressure O2 100.7 mmHg 75.0-100.0 [facility] NT ([facility]) ABG Total Co2 28.6 meq/L 23.0-31.0 [facility] ([facility]) ABG Hco3 27.4 meq/L 22.0-26.0 [facility]) ABG Base Excess 3.4 [facility] ([facility]) ABG Standard Hco3 27.5 meq/L 22.0-26.0 [facility] ([facility]) ABG O2 Saturation 98.1 % 95.0-99.0 [facility] ([facility]) ID Date Data Source [id number] 11/20/2020 01:11:00 PM EDT [facility] ([facility]) Name Value Range Interpretation Code Description Data Hannah rce(s) Supporting Document(s) Respiratory Panel Laboratory test result [facility] ([facility]) This respiratory PCR panel detects Influ [...] - SARS-CoV-2 (COVID19) ID Date Data Source [id number] 11/20/2020 01:11:00 PM EDT [facility] Name Value Range Interpretation Code Description Data Hannah rce(s) Supporting Document(s) SARS-CoV-2 (COVID 19) NEGATIVE - SARS-CoV-2 (COVID19) [facility] This lab was ordered by [facility] a nd reported by [facility]. ID Date Data Source [id number] 11/20/2020 01:02:00 PM EDT [facility] ([facility]) Name Value Range Interpretation Code Description Data Hannah rce(s) Supporting Document(s) Natriuretic peptide.B prohormone N-Terminal [Mass/volu me] in Serum or Plasma 36 pg/mL [facility] ([facility] ) ID Date Data Source [id number] 11/20/2020 01:02:00 PM EDT [facility] ([facility]) Name Value Range Interpretation Code Description Data Hannah rce(s) Supporting Document(s) Glucose, Fasting 180 mg/dL 70-100 [facility] ([facility]) Blood Urea Nitrogen 13 mg/dL 7-18 [facility] ([facility]) Creatinine For GFR 0.80 mg/dL 0.70-1.30 [facility] ([facility]) Glomerular Filtration Rate Laboratory test result [facility] ([facility]) <content>Units are mL/min/1.73 m2</content>
<content></content>
<content>Chronic Kidney Disease Staging per NKF:</content>
<content></content>
<content>Stage I & II GFR >=60 Normal to Mildly Decreased</content>
<content>Stage III GFR 30- 59 Moderately Decreased</content>
<content>Stage IV GFR 15-29 Severely Decreased</content>
<content>Stage V GFR <15 Very Little GFR Left</content>
<content>ESRD GFR <15 on INFORMATICA ARCHITECT</content>
<content></content> Potassium Serum 5.0 meq/L 3.5-5.1 [facility] ([facility]) Sodium Level 136 meq/L 136-145 [facility] ([facility]) Carbon Dioxide Level 34 meq/L 21-32 [facility] ([facility]) Chloride Level 99 meq/L 98-107 [facility] ([facility]) Calcium Level 9.0 mg/dL 8.8-10.2 [facility] ([facility]) Anion Gap 3 meq/L 8-16 [facility]) ID Date Data Source [id number] 11/20/2020 01:02:00 PM EDT [facility] ([facility]) Name Value Range Interpretation Code Description Data Hannah rce(s) Supporting Document(s) Alt/SGPT 25 U/L 12-78 [facility] Ast/Sgot 22 U/L 7-37 [facility] ([facility]) Alkaline Phosphatase 117 U/L 45-117 [facility] ([facility]) Bilirubin,Direct Laboratory test result 0.0-0.2 [facility] ([facility]) Bilirubin,Total 0.4 mg/dL 0.2-1.0 [facility] ([facility]) Albumin 3.0 GM/DL 3.2-5.2 [facility] ([facility]) Total Protein 7.2 GM/DL 6.4-8.2 [facility] ([facility]) Albumin/Globulin Ratio 0.7 [facility] ([facility]) ID Date Data Source [id number] 11/20/2020 01:02:00 PM EDT [facility] ([facility]) Name Value Range Interpretation Code Description Data Hannah rce(s) Supporting Document(s) CK-MB Value Mass 3.5 ng/mL [facility] ([facility]) CPK Creatine Phosphokinase 118 U/L 39-308 [facility] ([facility]) Troponin I Laboratory test result [facility] ([facility]) <content>Troponin I Reference Interval f or Siemens Burnet LOCI:</content>
<content></content>
<content>99th Percentile= 0.00-0.045 ng/ml</content>
<content></content>
<content>Risk Stratification:</content>
<content><= 0.10 ng/ml Decreased Risk for Adverse Clinical</content>
<content>Events.</content>
<content>0.10-1.50 ng/ml Increased Risk for Adverse Clinical</content>
<content>Events. Evaluation of additional</content>
<content>criterion and/or repeat testing in 2-6</content>
<content>hours is suggested to rule out myocardial</content>
<content>damage.</content>
<content>>= 1.50 ng/ml Indicative of Myocardial Injury.</content>
<content></content> MB/CK Relative Index 2.97 [facility] ([facility]) <content>DIAGNOSIS CRITERIA</content>
<content>MMB ng/ml Relative Index (RI)</content>
<content>NON-AMI < or = 5 N/A</content>
<content>TELLO ZONE > 5 < or = 4</content>
<content>AMI > 5 > 4</content>
<content></content> ID Date Data Source [id number] 11/20/2020 01:02:00 PM EDT [facility] ([facility]) Name Value Range Interpretation Code Description Data Hannah rce(s) Supporting Document(s) White Blood Count 12.8 10 4.0-10.0 [facility] ([facility]) Red Blood Count 5.24 10 4.30-6.10 [facility] ([facility]) Hemoglobin 13.5 g/dL 13.5-17.5 [facility] Hematocrit 44.2 % 42.0-52.0 [facility] Mean Corpuscular Volume 84.4 fl 80.0-96.0 [facility] ([facility]) Mean Corpuscular Hemoglobin 25.8 pg 27.0-33.0 [facility] ([facility]) Mean Corpuscular HGB Conc 30.5 g/dL 32.0-36.5 [facility] NT ([facility]) Red Cell Distribution Width 15.1 % 11.5-14.5 [facility] ([facility]) Platelet Count, Automated 470 10 150-450 [facility] NT ([facility]) [place] % 6.4 % 2.0-8.0 [facility]) Neutrophils % 72.5 % 36.0-66.0 [facility] ([facility]) Lymph % 13.9 % 24.0-44.0 [facility] Eos % 5.7 % 0.0-3.0 [facility] Baso % 1.1 % 0.0-1.0 [facility] Immature Granulocyte % 0.4 % 0-3.0 [facility] ([facility]) Nucleated Red Blood Cell % 0.0 % 0-0 [facility] ([facility]) Neutrophils # 9.3 10 1.5-8.5 [facility] ([facility]) Lymph # 1.8 10 1.5-5.0 [facility]) [place] # 0.8 10 0.0-0.8 [facility]) Baso # 0.1 10 0.0-0.2 [facility]) Eos # 0.7 10 0.0-0.5 [facility]) ID Date Data Source [id number] 10/15/2020 02:11:00 PM EDT [facility] ([facility]) Name Value Range Interpretation Code Description Data Hannah rce(s) Supporting Document(s) Thyrotropin [Units/volume] in Serum or Plasma by Detec tion limit <= 0.05 mIU/L 1.08 uIU/mL 0.36-3.74 [facility] ([facility] ) ID Date Data Source [id number] 10/15/2020 02:11:00 PM EDT [facility] ([facility]) Name Value Range Interpretation Code Description Data Hannah rce(s) Supporting Document(s) Glucose [Mass/volume] in Serum or Plasma 95 mg/dL 74-99 [facility] ([facility]) 100-125 mg/dL PRE-DIABETES/FASTING >126 mg/dL DIABETES/FASTING Urea nitrogen [Mass/volume] in Serum or Plasma 14 mg/dL 7-18 [facility] ([facility]) Creatinine 0.8 mg/dL 0.6-1.3 [facility] ([facility]) Sodium [Moles/volume] in Serum or Plasma 141 meq/L 136-145 [facility] ([facility]) Potassium [Moles/volume] in Serum or Plasma 4.7 meq/L 3.5-5.1 [facility] ([facility]) Chloride [Moles/volume] in Serum or Plasma 102 meq/L 98-107 [facility] ([facility]) Calcium [Mass/volume] in Serum or Plasma 8.6 mg/dL 8.5-10.1 [facility] ([facility]) Carbon dioxide, total [Moles/volume] in Serum or Plasma 29 meq/L 21 -32 [facility] ([facility]) Aspartate aminotransferase [Enzymatic activity/volume] in Serum or Plasma 13 U/L 15-37 [facility] ([facility] ) Total Bilirubin 0.4 mg/dL 0.2-1.0 [facility] ([facility]) Alkaline phosphatase isoenzyme [Units/volume] in Serum or Pl asma 102 mg/dL 46-116 [facility] ([facility]) Proteinase 3 Ab [Units/volume] in Serum 7.1 g/dL 6.4-8.2 [facility] ([facility]) Alanine aminotransferase [Enzymatic activity/volume] in Seru m or Plasma 21 U/L 12-78 [facility] ([facility]) Albumin [Mass/volume] in Serum or Plasma 3.2 g/dL 3.4-5.0 [facility] Glomerular filtration rate/1.73 sq M pre dicted among non-blacks [Volume Rate/Area] in Serum or Plasma by Creatinine-based formula (MDRD) Laboratory test result [facility] ([facility] ) A/G Ratio 0.82 CALC 1.00-1.90 [facility] ([facility]) Glomerular filtration rate/1.73 sq M pre dicted among blacks [Volume Rate/Area] in Serum or Plasma by Creatinine-based formula (MDRD) Laboratory test result [facility] <content>CHRONIC KIDNEY DISEASE STAGING PER NKF</content>
<content></content>
<content>STAGE I & II GFR >= 60 NORMAL TO MILDLY DECREASED</content>
<content>STAGE III GFR 30-59 MODERATELY DECREASED</content>
<content>STAGE IV GFR 15-29 SEVERELY DECREASED</content>
<content>STAGE V GFR <15 VERY LITTLE GFR LEFT</content>
<content>ESRD GFR <15 ON INFORMATICA ARCHITECT</content>
<content></content> ID Date Data Source [id number] 10/15/2020 02:11:00 PM EDT [facility] ([facility] Name Value Range Interpretation Code Description Data Hannah rce(s) Supporting Document(s) Hemoglobin A1c/Hemoglobin.total in Blood 8.0 % [facility] ([facility]) Lab Result Notes: Pre-Diabetes 5.7 - 6.4 % Diabetes = or > 6.5% Glucose mean value [Mass/volume] in Blood Estimated fr om glycated hemoglobin 183 mg/dL 60-110 [facility] ID Date Data Source [id number] 10/15/2020 02:11:00 PM EDT [facility] ([facility]) Name Value Range Interpretation Code Description Data Hannah rce(s) Supporting Document(s) Erythrocytes [#/volume] in Blood by Automated count 4.76 x10*6/UL 4.2 0-6.30 [facility] Hemoglobin [Mass/volume] in Blood 13.1 g/dL 12.0-18.0 [facility] ([facility]) Leukocytes [#/volume] in Blood by Automated count 15.0 x10*3/UL 4.1-1 0.9 [facility] ([facility]) NOTE: CBC VERIFIED Hematocrit [Volume Fraction] of Blood by Automated count 39.7 % 3 7.0-51.0 [facility] ([facility]) MCH 27.6 pg 26.0-32.0 [facility]) MCV 83.4 fL 80.0-97.0 [facility]) Platelets [#/volume] in Blood by Automated count 466 x10*3/UL 140-440 [facility] Erythrocyte distribution width [Ratio] by Automated count 14.2 % 11.6-13.7 [facility] ([facility]) MCHC 33.0 g/dL 31.0-38.0 [facility] ([facility]) Lymph % 13.8 % 10.0-58.5 [facility] ([facility]) MPV 7.6 FL 7.8-11.0 [facility] ([facility]) Mid % 4.0 % 1.7-9.3 [facility] ([facility]) Lymph # 2.0 x10*3/UL 0.6-4.1 [facility] ([facility]) Neut % 82.2 % 37.0-92.0 [facility]) Neut # 12.3 x10*3/UL 2.0-7.8 [facility] ([facility]) Mid # 0.7 x10*3/UL 0.1-0.6 [facility] ([facility]) ID Date Data Source [id number] 10/15/2020 02:11:00 PM EDT [facility] ([facility] Name Value Range Interpretation Code Description Data Hannah rce(s) Supporting Document(s) Hemoglobin A1c/Hemoglobin.total in Blood Laboratory test result [facility] ([facility]) ID Date Data Source [id number] 09/03/2020 12:44:00 AM EST [facility] Name Value Range Interpretation Code Description Data Hannah rce(s) Supporting Document(s) SARS-CoV-2 (COVID 19) NEGATIVE - SARS-CoV-2 (COVID19) [facility] This lab was ordered by [facility] a nd reported by [facility]. ID Date Data Source [id number] 08/13/2020 06:30:00 AM EST [facility] ([facility] Name Value Range Interpretation Code Description Data Hannah rce(s) Supporting Document(s) ABG Partial Pressure O2 175.6 mmHg 75.0-100.0 [facility] ([facility]) ABG pH (Arterial) 7.394 units 7.350-7.450 [facility] ( [facility] ABG Partial Pressure Co2 44.2 mmHg 35.0-45.0 [facility] ([facility]) ABG Total Co2 27.8 meq/L 23.0-31.0 [facility] ([facility]) ABG Hco3 26.4 meq/L 22.0-26.0 [facility]) ABG Base Excess 1.1 [facility] ([facility]) ABG Standard Hco3 25.5 meq/L 22.0-26.0 [facility] ([facility]) ABG O2 Saturation 99.5 % 95.0-99.0 [facility] ([facility]) ID Date Data Source [id number] 08/13/2020 05:39:00 AM EST [facility] ([facility]) Name Value Range Interpretation Code Description Data Hannah rce(s) Supporting Document(s) Respiratory Panel Laboratory test result [facility] This respiratory PCR panel detects Influ margi [...] - SARS-CoV-2 (COVID19) ID Date Data Source [id number] 08/13/2020 05:39:00 AM EST [facility] ([facility] Name Value Range Interpretation Code Description Data Hannah rce(s) Supporting Document(s) Glucose, Fasting 237 mg/dL 70-100 [facility] ([facility]) Creatinine For GFR 1.00 mg/dL 0.70-1.30 [facility] ([facility]) Blood Urea Nitrogen 14 mg/dL 7-18 [facility] ([facility]) Sodium Level 137 meq/L 136-145 [facility] ([facility]) Glomerular Filtration Rate Laboratory test result [facility] <content>Units are mL/min/1.73 m2</content>
<content></content>
<content>Chronic Kidney Disease Staging per NKF:</content>
<content></content>
<content>Stage I & II GFR >=60 Normal to Mildly Decreased</content>
<content>Stage III GFR 30- 59 Moderately Decreased</content>
<content>Stage IV GFR 15-29 Severely Decreased</content>
<content>Stage V GFR <15 Very Little GFR Left</content>
<content>ESRD GFR <15 on INFORMATICA ARCHITECT</content>
<content></content> Carbon Dioxide Level 31 meq/L 21-32 [facility] ([facility]) Potassium Serum 4.5 meq/L 3.5-5.1 [facility] ([facility]) Chloride Level 101 meq/L 98-107 [facility] ([facility]) Anion Gap 5 meq/L 8-16 [facility] Calcium Level 9.0 mg/dL 8.8-10.2 [facility] ([facility]) ID Date Data Source [id number] 08/13/2020 05:39:00 AM EST [facility] ([facility]) Name Value Range Interpretation Code Description Data Hannah rce(s) Supporting Document(s) Ast/Sgot 16 U/L 7-37 [facility] Alkaline Phosphatase 118 U/L 45-117 [facility] ([facility]) Alt/SGPT 27 U/L 12-78 [facility]) Bilirubin,Total 0.2 mg/dL 0.2-1.0 [facility] ([facility]) Bilirubin,Direct 0.1 mg/dL 0.0-0.2 [facility] ([facility]) Total Protein 6.9 GM/DL 6.4-8.2 [facility] ([facility]) Albumin 2.9 GM/DL 3.2-5.2 [facility]) Albumin/Globulin Ratio 0.7 [facility] ([facility]) ID Date Data Source [id number] 08/13/2020 05:39:00 AM EST [facility] ([facility]) Name Value Range Interpretation Code Description Data Hannah rce(s) Supporting Document(s) Red Blood Count 5.00 10 4.30-6.10 [facility] ([facility]) White Blood Count 15.5 10 4.0-10.0 [facility] ([facility]) Hematocrit 44.0 % 42.0-52.0 [facility] Mean Corpuscular Volume 88.0 fl 80.0-96.0 [facility] ([facility]) Hemoglobin 13.8 g/dL 13.5-17.5 [facility] Mean Corpuscular Hemoglobin 27.6 pg 27.0-33.0 RI DENT ([facility]) Mean Corpuscular HGB Conc 31.4 g/dL 32.0-36.5 MEDE NT ([facility]) Red Cell Distribution Width 13.6 % 11.5-14.5 RI DENT ([facility]) Neutrophils % 77.5 % 36.0-66.0 MEDENT ([facility]) Platelet Count, Automated 464 10 150-450 MEDE NT ([facility]) [place] % 7.0 % 0.0-5.0 [facility]) Lymph % 10.4 % 24.0-44.0 [facility]) Immature Granulocyte % 1.0 % 0-3.0 MEDENT ([facility]) Eos % 3.6 % 0.0-3.0 [facility]) Baso % 0.5 % 0.0-1.0 [facility]) Neutrophils # 12.0 10 1.5-8.5 MEDENT ([facility]) Nucleated Red Blood Cell % 0.0 % 0-0 MED ENT ([facility]) Lymph # 1.6 10 1.5-5.0 [facility] ([facility]) [place] # 1.1 10 0.0-0.8 [facility]) Eos # 0.6 10 0.0-0.5 [facility] ([facility]) Baso # 0.1 10 0.0-0.2 [facility] ([facility]) ID Date Data Source [id number] 08/13/2020 05:39:00 AM EST [facility] Name Value Range Interpretation Code Description Data Hannah rce(s) Supporting Document(s) SARS-CoV-2 (COVID 19) NEGATIVE - SARS-CoV-2 (COVID19) [facility] This lab was ordered by [facility] a nd reported by [facility]. ID Date Data Source [id number] 06/25/2020 08:35:00 AM EST MEDENT ([facility], ) Name Value Range Interpretation Code Description Data Hannah rce(s) Supporting Document(s) FVC-Pre 2.03 L MEDENT ([facility]) PDFReport Laboratory test result MEDENT ([facility], ) FVC-Pred 4.61 L MEDENT ([facility]) Fev1-Pred 3.44 L MEDENT ([facility]) FVC-LLN 3.67 L MEDENT ([facility]) FVC-%Pred-Pre 44 L MEDENT ([facility]) Fev1-Pre 0.86 L MEDENT ([facility]) Fev1-%Pred-Pre 25 L MEDENT ([facility]) Fev1-LLN 2.65 L MEDENT ([facility]) Fev6-Pred 4.37 L MEDENT ([facility]) Fev6-%Pred-Pre 45 L MEDENT ([facility]) Fev6-Pre 2.01 L MEDENT ([facility]) Uyf0bfk-Sumo 75 % MEDENT ([facility]) Fev6-LLN 3.46 L MEDENT ([facility]) Evw7tnp-%Pred-Pre 56 % MEDENT ([facility]) Idx0hoo-Gbb 42 % MEDENT ([facility]) Cnz7ens-NYF 65 % MEDENT ([facility]) Yiu7iar-Cswx 95 % MEDENT ([facility]) Nbq2zdq-Afu 99 % MEDENT ([facility]) FEFMax-Pred 8.82 L/E/sec MEDENT ([facility]) Emb2ybh-%Pred-Pre 103 % MEDENT ([facility]) FEFMax-Pre 3.05 L/E/sec MEDENT ([facility]) FEFMax-LLN 6.50 L/E/sec MEDENT ([facility]) Qvl5007-Gakc 2.72 L/E/sec MEDENT ([facility]) FEFMax-%Pred-Pre 34 L/E/sec MEDENT ([facility]) Eyg6601-Bpu 0.36 L/E/sec MEDENT ([facility]) Rwf7639-ADY 1.12 L/E/sec MEDENT ([facility]) Sth2591-%Pred-Pre 13 L/E/sec MEDENT ([facility]) Hae9jsb3-Oqo 43 % MEDENT ([facility]) ExpTime-Pre 6.44 sec MEDENT ([facility]) Dao2zpz1-Dneb 78 % MEDENT ([facility]) Ctj2tcp9-%Pred-Pre 54 % MEDENT ([facility]) Ehl1zcz2-LQX 69 % MEDENT ([facility]) ID Date Data Source [id number] 06/22/2020 11:45:00 AM EST [facility] Name Value Range Interpretation Code Description Data Hannah rce(s) Supporting Document(s) SARS coronavirus 2 RNA [facility] This lab was ordered by [facility] and reported by [facility]. ID Date Data Source [id number] 06/12/2020 09:28:00 AM EST MEDENT ([facility]) Name Value Range Interpretation Code Description Data Hannah rce(s) Supporting Document(s) Hemoglobin A1c/Hemoglobin.total in Blood 8.5 % [facility] Lab Result Notes: Pre-Diabetes 5.7 - 6.4 % Diabetes = or > 6.5% Glucose mean value [Mass/volume] in Blood Estimated fr om glycated hemoglobin 197 mg/dL 60-110 MEDENT ([facility] ) ID Date Data Source [id number] 06/12/2020 09:28:00 AM EST MEDENT ([facility]) Name Value Range Interpretation Code Description Data Hannah rce(s) Supporting Document(s) Glucose [Mass/volume] in Serum or Plasma 221 mg/dL 74-99 MEDENT ([facility]) 100-125 mg/dL PRE-DIABETES/FASTING >126 mg/dL DIABETES/FASTING Creatinine 1.1 mg/dL 0.6-1.3 MEDENT ([facility]) Urea nitrogen [Mass/volume] in Serum or Plasma 22 mg/dL 7-18 MEDENT ([facility]) Potassium [Moles/volume] in Serum or Plasma 4.7 meq/L 3.5-5.1 MEDENT ([facility]) Sodium [Moles/volume] in Serum or Plasma 140 meq/L 136-145 MEDENT ([facility]) Chloride [Moles/volume] in Serum or Plasma 102 meq/L 98-107 MEDENT ([facility]) Calcium [Mass/volume] in Serum or Plasma 9.2 mg/dL 8.5-10.1 MEDENT ([facility]) Carbon dioxide, total [Moles/volume] in Serum or Plasma 30 meq/L 21 -32 MEDENT ([facility]) Alkaline phosphatase isoenzyme [Units/volume] in Serum or Pl asma 120 mg/dL 46-116 MEDENT ([facility]) Total Bilirubin 0.5 mg/dL 0.2-1.0 MEDENT ([facility]) Aspartate aminotransferase [Enzymatic activity/volume] in Serum or Plasma 13 U/L 15-37 MEDENT ([facility] ) Alanine aminotransferase [Enzymatic activity/volume] in Seru m or Plasma 26 U/L 12-78 MEDENT ([facility]) Proteinase 3 Ab [Units/volume] in Serum 7.0 g/dL 6.4-8.2 [facility] ([facility]) Albumin [Mass/volume] in Serum or Plasma 3.6 g/dL 3.4-5.0 [facility] ([facility]) Glomerular filtration rate/1.73 sq M pre dicted among non-blacks [Volume Rate/Area] in Serum or Plasma by Creatinine-based formula (MDRD) Laboratory test result MEDENT ([facility] ) Glomerular filtration rate/1.73 sq M pre dicted among blacks [Volume Rate/Area] in Serum or Plasma by Creatinine-based formula (MDRD) Laboratory test result [facility] ([facility]) <content>CHRONIC KIDNEY DISEASE STAGING PER NKF</content>
<content></content>
<content>STAGE I & II GFR >= 60 NORMAL TO MILDLY DECREASED</content>
<content>STAGE III GFR 30-59 MODERATELY DECREASED</content>
<content>STAGE IV GFR 15-29 SEVERELY DECREASED</content>
<content>STAGE V GFR <15 VERY LITTLE GFR LEFT</content>
<content>ESRD GFR <15 ON INFORMATICA ARCHITECT</content>
<content></content> A/G Ratio 1.06 CALC 1.00-1.90 [facility]) ID Date Data Source [id number] 06/12/2020 09:28:00 AM EST [facility] ([facility]) Name Value Range Interpretation Code Description Data Hannah rce(s) Supporting Document(s) Hemoglobin A1c/Hemoglobin.total in Blood Laboratory test result [facility] ID Date Data Source [id number] 04/30/2020 12:03:00 PM EDT [facility] ([facility]) Name Value Range Interpretation Code Description Data Hannah rce(s) Supporting Document(s) Thyrotropin [Units/volume] in Serum or Plasma by Detec tion limit <= 0.05 mIU/L 1.240 uIU/ML 0.358-3.740 [facility] ([facility] ) Triiodothyronine (T3) [Mass/volume] in Serum or Plasma 97.8 ng/dL 60.0-181.0 MEDENT ([facility]) Thyroxine (T4) free [Mass/volume] in Serum or Plasma 1.09 ng/dL 0.76- 1.46 [facility] ([facility]) Thyroperoxidase Ab [Units/volume] in Serum or Plasma 31.2 U/ML [facility] ([facility]) Thyroglobulin Ab [Units/volume] in Serum or Plasma Laboratory test re sult [facility] ([facility]) ID Date Data Source [id number] 04/30/2020 12:03:00 PM EDT [facility] ([facility]) Name Value Range Interpretation Code Description Data Hannah rce(s) Supporting Document(s) Blood Urea Nitrogen 20 mg/dL 7-18 MEDENT ([facility]) Glucose, Fasting 188 mg/dL 70-100 MEDENT ([facility]) Creatinine For GFR 1.02 mg/dL 0.70-1.30 MEDENT ([facility]) Potassium Serum 4.7 meq/L 3.5-5.1 MEDENT ([facility]) Sodium Level 138 meq/L 136-145 MEDENT ([facility]) Glomerular Filtration Rate Laboratory test result [facility] <content>Units are mL/min/1.73 m2</content>
<content></content>
<content>Chronic Kidney Disease Staging per NKF:</content>
<content></content>
<content>Stage I & II GFR >=60 Normal to Mildly Decreased</content>
<content>Stage III GFR 30- 59 Moderately Decreased</content>
<content>Stage IV GFR 15-29 Severely Decreased</content>
<content>Stage V GFR <15 Very Little GFR Left</content>
<content>ESRD GFR <15 on INFORMATICA ARCHITECT</content>
<content></content> Anion Gap 7 meq/L 8-16 [facility] ([facility]) Carbon Dioxide Level 25 meq/L 21-32 [facility] ([facility]) Chloride Level 106 meq/L 98-107 MED[facility] ([facility]) Ast/Sgot 20 U/L 7-37 [facility] Calcium Level 9.5 mg/dL 8.8-10.2 MEDENT ([facility]) Alt/SGPT 29 U/L 12-78 [facility] Total Protein 7.8 GM/DL 6.4-8.2 MEDENT ([facility]) Alkaline Phosphatase 117 U/L 45-117 MEDENT ([facility]) Bilirubin,Total 0.7 mg/dL 0.2-1.0 MEDENT ([facility]) Albumin/Globulin Ratio 1.1 MEDENT ([facility]) Albumin 4.0 GM/DL 3.2-5.2 [facility] ID Date Data Source [id number] 04/30/2020 12:03:00 PM EDT MEDENT ([facility]) Name Value Range Interpretation Code Description Data Hannah rce(s) Supporting Document(s) Red Blood Count 5.45 10 4.30-6.10 MEDENT ([facility]) Hemoglobin 16.1 g/dL 13.5-17.5 MEDENT ([facility]) White Blood Count 11.9 10 4.0-10.0 MEDENT ([facility]) Hematocrit 48.8 % 42.0-52.0 MEDENT ([facility]) Mean Corpuscular Volume 89.5 fl 80.0-96.0 MEDENT ([facility]) Mean Corpuscular Hemoglobin 29.5 pg 27.0-33.0 ME DENT ([facility]) Platelet Count, Automated 360 10 150-450 MEDE NT ([facility]) Mean Corpuscular HGB Conc 33.0 g/dL 32.0-36.5 MEDE NT ([facility]) Red Cell Distribution Width 13.2 % 11.5-14.5 ME DENT ([facility]) Neutrophils % 75.8 % 36.0-66.0 [facility]) Lymph % 14.3 % 24.0-44.0 [facility] ([facility]) [place] % 6.8 % 0.0-5.0 [facility] ([facility]) Immature Granulocyte % 0.4 % 0-3.0 MEDENT ([facility]) Baso % 0.8 % 0.0-1.0 [facility] ([facility]) Eos % 1.9 % 0.0-3.0 [facility] ([facility]) Lymph # 1.7 10 1.5-5.0 [facility] ([facility]) Neutrophils # 9.0 10 1.5-8.5 [facility] [address] Nucleated Red Blood Cell % 0.0 % 0-0 MED ENT ([facility]) Baso # 0.1 10 0.0-0.2 [facility] ([facility]) [place] # 0.8 10 0.0-0.8 [facility]) Eos # 0.2 10 0.0-0.5 [facility] ([facility]) Procedure Social History Code Duration Value Status Description Data Source(s ) Smoking 04/21/2021 12:00:00 AM EDT Patient is a former smoker completed Patient is a former smoker MEDENT ([facility]) Smoking 11/28/2020 12:00:00 AM EDT Patient is a former smoker completed Patient is a former smoker [facility] ([facility]) Vital Signs ID Date Data Source UNK Name Value Range Interpretation Code Description Data Source(s) Systolic blood pressure 104 mm[Hg] 104 mm[Hg] M EDENT ([facility]) Diastolic blood pressure 70 mm[Hg] 70 mm[Hg] [facility] ([facility]) Heart rate 106 /min 106 /min [facility] ([facility]) Oxygen saturation in Arterial blood by Pulse oximetry 94 % 94 % [facility] ([facility]) Body height 70 [in_i] 70 [in_i] [facility] ([facility]) 5'10" Body weight 260.00 [lb_av] 260.00 [lb_av] MEDEN T ([facility]) Body mass index (BMI) [Ratio] 37.3 kg/m2 37.3 k g/m2 [facility] ([facility]) [place] body weight 166 [lb_av] 166 [lb_av] MEDEN T ([facility]) Body weight 117.936 kg 117.936 kg [facility] ([facility]) Body surface area Derived from formula 2.33 m2 2.33 m2 [facility] ([facility]) Heart rate 103 /min 103 /min [facility] ([facility]) Body height 59 [in_i] 59 [in_i] [facility] ([facility]) 4'11" Body weight 260.00 [lb_av] 260.00 [lb_av] [facility] Oxygen saturation in Arterial blood by Pulse oximetry 9495 % 9495 % [facility] ([facility]) Body mass index (BMI) [Ratio] 52.5 kg/m2 52.5 k g/m2 [facility] ([facility]) Diastolic blood pressure 56 mm[Hg] 56 mm[Hg] [facility] ([facility]) Systolic blood pressure 104 mm[Hg] 104 mm[Hg] [facility] ([facility]) Body height 70 [in_i] 70 [in_i] [facility] 5'10" Systolic blood pressure--sitting 112 mm[Hg] 112 mm[Hg] [facility] ([facility]) Ra, large cuff Diastolic blood pressure--sitting 72 mm[Hg] 72 mm[Hg] MEDENT ([facility]) Ra, large cuff Heart rate 91 /min 91 /min [facility] ([facility] Body height 59 [in_i] 59 [in_i] [facility] ([facility]) 4'11" Systolic blood pressure 124 mm[Hg] 124 mm[Hg] [facility] ([facility]) Body weight 252.00 [lb_av] 252.00 [lb_av] [facility] stated Body mass index (BMI) [Ratio] 50.9 kg/m2 50.9 k g/m2 MEDENT ([facility]) Diastolic blood pressure 70 mm[Hg] 70 mm[Hg] [facility] ([facility]) Oxygen saturation in Arterial blood by Pulse oximetry 97 % 97 % [facility] ([facility]) 2 liters Oxygen saturation in Arterial blood by Pulse oximetry 90 % 90 % [facility] ([facility]) 1 liters Body mass index (BMI) [Ratio] 50.5 kg/m2 50.5 k g/m2 MED[facility] ([facility]) Systolic blood pressure 112 mm[Hg] 112 mm[Hg] [facility] Diastolic blood pressure 68 mm[Hg] 68 mm[Hg] [facility] ([facility]) Heart rate 92 /min 92 /min [facility] ([facility]) Body height 59 [in_i] 59 [in_i] [facility] ([facility]) 4'11" Body weight 250.00 [lb_av] 250.00 [lb_av] MEDEN T ([facility]) Systolic blood pressure 120 mm[Hg] 120 mm[Hg] [facility] Body height 59 [in_i] 59 [in_i] [facility] ([facility]) 4'11" Heart rate 106 /min 106 /min [facility] ([facility]) Diastolic blood pressure 70 mm[Hg] 70 mm[Hg] [facility] ([facility]) Oxygen saturation in Arterial blood by Pulse oximetry 93 % 93 % [facility] ([facility]) With O2 @ 1L Body mass index (BMI) [Ratio] 50.3 kg/m2 50.3 k g/m2 [facility] ([facility]) Body weight 249.00 [lb_av] 249.00 [lb_av] MEDEN T ([facility]) per pt Diastolic blood pressure 62 mm[Hg] 62 mm[Hg] [facility] ([facility]) Systolic blood pressure 100 mm[Hg] 100 mm[Hg] [facility] Heart rate 76 /min 76 /min [facility] ([facility]) Body height 59 [in_i] 59 [in_i] MED[facility] ([facility]) 4'11" Body weight 249.00 [lb_av] 249.00 [lb_av] MEDEN T ([facility]) Body mass index (BMI) [Ratio] 50.3 kg/m2 50.3 k g/m2 [facility] ([facility]) Oxygen saturation in Arterial blood by Pulse oximetry 962 % 962 % [facility] ([facility]) Body height 70 [in_i] 70 [in_i] MEDENT ([facility]) 5'10" Body weight 248.00 [lb_av] 248.00 [lb_av] MEDEN T ([facility]) per pt Body mass index (BMI) [Ratio] 35.6 kg/m2 35.6 k g/m2 [facility] ([facility]) [place] body weight 166 [lb_av] 166 [lb_av] MEDEN T ([facility]) Body weight 112.493 kg 112.493 kg [facility] ([facility]) Body surface area Derived from formula 2.29 m2 2.29 m2 [facility] ([facility]) Body height 70 [in_i] 70 [in_i] [facility] ([facility]) 5'10" Body weight 248.00 [lb_av] 248.00 [lb_av] MEDEN T ([facility]) per pt Systolic blood pressure 102 mm[Hg] 102 mm[Hg] EDENT ([facility]) Diastolic blood pressure 70 mm[Hg] 70 mm[Hg] [facility] ([facility]) Heart rate 87 /min 87 /min [facility] ([facility]) Oxygen saturation in Arterial blood by Pulse oximetry 962 % 962 % [facility] ([facility]) Body mass index (BMI) [Ratio] 35.6 kg/m2 35.6 k g/m2 [facility] ([facility]) [place] body weight 166 [lb_av] 166 [lb_av] MEDEN T ([facility]) Body weight 112.493 kg 112.493 kg [facility] ([facility]) Body surface area Derived from formula 2.29 m2 2.29 m2 [facility] ([facility]) Diastolic blood pressure 72 mm[Hg] 72 mm[Hg] [facility] ([facility]) Body weight 249.00 [lb_av] 249.00 [lb_av] MEDEN T ([facility]) Systolic blood pressure 128 mm[Hg] 128 mm[Hg] [facility] Heart rate 98 /min 98 /min [facility] ([facility]) Body height 59 [in_i] 59 [in_i] [facility] ([facility]) 4'11" Oxygen saturation in Arterial blood by Pulse oximetry 93 % 93 % [facility] ([facility]) 3 liters Body mass index (BMI) [Ratio] 50.3 kg/m2 50.3 k g/m2 [facility] ([facility]) Body mass index (BMI) [Ratio] 36.3 kg/m2 36.3 k g/m2 [facility] ([facility]) [place] body weight 166 [lb_av] 166 [lb_av] MEDEN T ([facility]) Body weight 114.761 kg 114.761 kg [facility] ([facility]) Body surface area Derived from formula 2.31 m2 2.31 m2 [facility] ([facility]) Oxygen saturation in Arterial blood by Pulse oximetry 972 % 972 % [facility] ([facility]) 95 2L Body height 70 [in_i] 70 [in_i] [facility] ([facility]) 5'10" Body weight 253.00 [lb_av] 253.00 [lb_av] [facility] 240-stated by patient Systolic blood pressure 118 mm[Hg] 118 mm[Hg] [facility] ([facility]) Diastolic blood pressure 80 mm[Hg] 80 mm[Hg] [facility] ([facility]) Heart rate 80 /min 80 /min [facility] ([facility]) Oxygen saturation in Arterial blood by Pulse oximetry 972 % 972 % [facility] ([facility]) 95 2L Body height 70 [in_i] 70 [in_i] [facility] ([facility]) 5'10" Body weight 253.00 [lb_av] 253.00 [lb_av] MEDEN T ([facility]) 240-stated by patient Body mass index (BMI) [Ratio] 36.3 kg/m2 36.3 k g/m2 [facility] ([facility]) [place] body weight 166 [lb_av] 166 [lb_av] MEDEN T ([facility]) Body weight 114.761 kg 114.761 kg [facility] ([facility]) Body surface area Derived from formula 2.31 m2 2.31 m2 [facility] ([facility]) Systolic blood pressure 132 mm[Hg] 132 mm[Hg] M EDENT ([facility]) Heart rate 98 /min 98 /min [facility] ([facility]) Body weight 244.00 [lb_av] 244.00 [lb_av] MEDEN T ([facility]) Diastolic blood pressure 76 mm[Hg] 76 mm[Hg] [facility] ([facility]) Oxygen saturation in Arterial blood by Pulse oximetry 98 % 98 % [facility] ([facility]) 2liter Heart rate 88 /min 88 /min [facility] ([facility]) Body height 69.0 [in_i] 69.0 [in_i] [facility] ([facility]) 5'9" Oxygen saturation in Arterial blood by Pulse oximetry --post exerci se 87 % 87 % [facility] ([facility]) Oxygen saturation in Arterial blood by Pulse oximetry 91 % 91 % [facility] ([facility]) Body weight 251.00 [lb_av] 251.00 [lb_av] MEDEN T ([facility]) Body mass index (BMI) [Ratio] 37.1 kg/m2 37.1 k g/m2 [facility] ([facility]) Diastolic blood pressure 78 mm[Hg] 78 mm[Hg] [facility] ([facility]) Systolic blood pressure 130 mm[Hg] 130 mm[Hg] [facility] Systolic blood pressure 142 mm[Hg] 142 mm[Hg] [facility] ([facility]) Body weight 115.668 kg 115.668 kg [facility] ([facility]) Body surface area Derived from formula 2.31 m2 2.31 m2 [facility] ([facility]) Diastolic blood pressure 90 mm[Hg] 90 mm[Hg] [facility] ([facility]) Heart rate 93 /min 93 /min [facility] ([facility]) Oxygen saturation in Arterial blood by Pulse oximetry 95 % 95 % [facility] ([facility]) Body height 70 [in_i] 70 [in_i] [facility] ([facility]) 5'10" Body weight 255.00 [lb_av] 255.00 [lb_av] MEDEN T ([facility]) Body mass index (BMI) [Ratio] 36.6 kg/m2 36.6 k g/m2 [facility] ([facility]) [place] body weight 166 [lb_av] 166 [lb_av] MED[facility] T ([facility]) Systolic blood pressure 136 mm[Hg] 136 mm[Hg] [facility] ([facility]) Heart rate 88 /min 88 /min [facility] ([facility]) Body height 69.0 [in_i] 69.0 [in_i] [facility] ([facility]) 5'9" Diastolic blood pressure 84 mm[Hg] 84 mm[Hg] [facility] ([facility]) Body weight 257.00 [lb_av] 257.00 [lb_av] MED[facility] T ([facility]) Oxygen saturation in Arterial blood by Pulse oximetry 90 % 90 % [facility] ([facility]) Body mass index (BMI) [Ratio] 37.9 kg/m2 37.9 k g/m2 [facility] ([facility]) Systolic blood pressure 139 mm[Hg] 139 mm[Hg] [facility] ([facility]) Diastolic blood pressure 60 mm[Hg] 60 mm[Hg] [facility] [facility]) Body height 70 [in_i] 70 [in_i] [facility] ([facility]) 5'10" Body weight 250.00 [lb_av] 250.00 [lb_av] [facility] Body mass index (BMI) [Ratio] 35.9 kg/m2 35.9 k g/m2 [facility] ([facility]) [place] body weight 166 [lb_av] 166 [lb_av] [facility] Body weight 113.400 kg 113.400 kg [facility] ([facility]) Body surface area Derived from formula 2.29 m2 2.29 m2 [facility] ([facility])
[2021-06-21] MEDS ORDERED: ACETAMINOPHEN TAB 650MG DOSE (2X325MG) PO PRN (11:20)
--- NOTE | 2021-06-21 11:53 | HPEPDOC ---
General Date of Admission 06/21/21 Date of Service: Jun 21, 2021 Chief Complaint The patient is a 65-year-old male admitted with a reason for visit of Leg Pain/Sob. Source: Patient History of Present Illness Patient is 65 years old male with past medical history of COPD with chronic hypoxic respiratory failure on 2 L of oxygen, Obesity, Untreated ASH, diabetes, hypertension, diastolic CHF, moderate pulmonary hypertension, mild to moderate Aortic stenosis, HTN, HLD, anxiety, Peripheral neuropathy, Essential tremors, Severe neuralgic pain around the ears and the face/Trigeminal neuralgia, Loss of hearing on the right, Kidney stones, PTSD, Depression presented to the ED with Increasing SOB and legs swelling and pain for past few weeks. Patient stated that he has been having swollen legs for past few weeks associated with erythema and superficial wounds. Patient stated that his legs pain became progressively worse and he cannot tolerated. Also patient stated that he has increased shortness of breath and orthopnea. In ER patient was found to have leukocytosis of 25.6, hemoglobin 12.2, lactic acid 3.1, negative troponin. Doppler ultrasound negative for DVT. Chest x-ray negative for acute pulmonary infiltrates Home Medications Scheduled Aspirin (Aspirin EC) 81 Mg Tablet.dr, 81 MG PO QHS, (Reported) Atorvastatin Calcium (Atorvastatin Calcium) 10 Mg Tablet, 10 MG PO QHS, (Reported) Budesonide/Formoterol (Symbicort 80-4.5 Mcg Inhaler) 6.9 Gm Hfa.aer.ad, 2 PUFF INH BID, (Reported) Duloxetine Hcl (Duloxetine HCl) 30 Mg Cap, 30 MG PO TID, (Reported) Glimepiride (Glimepiride) 2 Mg Tablet, 2 MG PO BID, (Reported) Insulin Detemir (Levemir Flextouch) 100 Unit/1 Ml Insuln.pen, 15 UNIT SC DAILY, (Reported) Insulin Detemir (Levemir Flextouch) 100 Unit/1 Ml Insuln.pen, 10 UNIT SC QHS, (Reported) Insulin Lispro (Humalog Kwikpen U-100) 100 Unit/1 Ml Insuln.pen, 1 DOSE SC AC, (Reported) PER SLIDING SCALE Metoprolol Tartrate (Metoprolol Tartrate) 25 Mg Tablet, 25 MG PO BID, (Reported) Tamsulosin HCl (Flomax) 0.4 Mg Cap, 0.4 MG PO BID, (Reported) Torsemide (Torsemide) 20 Mg Tablet, 20 MG PO ASDIRECTED 2 tab in morning and 1 tab in evening Scheduled PRN Albuterol Sulfate (Ventolin Hfa) 18 Gm Hfa.aer.ad, 2 PUFFS INH QID PRN for SO B/WHEEZING, (Reported) Epinephrine (Epipen 2-Shashi) 0.3 Mg/0.3 Ml Inj, 0.3 MG INJ ASDIRECTED PRN for ANAPHYLAXIS, (Reported) Ketoconazole (Ketoconazole) 15 Gm Cream..g., 1 APLCT TOP BID PRN for RASH, (Reported) APPLY TO FACE Levalbuterol HCl (Levalbuterol HCl) 1.25 Mg/3 Ml Vial.neb, 1 VIAL NEB Q4H PRN for SOB/WHEEZING, (Reported) Trazodone HCl (Trazodone HCl) 50 Mg Tablet, 50 MG PO QHS PRN for INSOMNIA, (Reported) Allergies Coded Allergies: Penicillins (Verified Allergy, Severe, anaphylaxis, 06/19/20) per Dr. García primidone (Verified Allergy, Severe, 01/26/21) hives codeine (Verified Allergy, Intermediate, HIVES, 11/20/20) ibuprofen (Verified Allergy, Intermediate, face swelling, 11/20/20) [employer] bee venom protein (honey bee) (Verified Allergy, Unknown, 06/19/20) Past Medical History Medical History Oxygen dependent COPD, Obesity, Untreated ASH, diabetes, hypertension, diastolic CHF, moderate pulmonary hypertension, mild to moderate Aortic stenosis, HTN, HLD, anxiety, Peripheral neuropathy, Essential tremors, Severe neuralgic pain around the ears and the face/Trigeminal neuralgia, Loss of hearing on the right, Kidney stones, PTSD, Depression, environmental allergies Surgical History Umbilical hernia repair times two. Carpal tunnel release. Trigger finger release. Lesion removed from his lip in 1977. Right lithotripsy and basket retrieval of kidney stones in 2017 Bilateral tympanostomies as a child Family History Father: . History of lung cancer and COPD Mother: . History of lung cancer, pancreatic cancer, and COPD Social History * Smoker: former Smoker Alcohol: Denies Drugs: denies A-FIB/CHADSVASC A-FIB History Current/History of A-Fib/PAF?: No Current PO Anticoag Therapy: No Review of Systems Constitutional: Reports: Weakness, Fatigue; Denies: Chills, Fever Eyes: Denies: Pain ENT: Denies: Head Aches Skin: Reports: Breakdown (Left distal legs multiple superficial wounds) Pulmonary: Reports: Dyspnea Cardiovascular: Denies: Chest Pain, Palpitations Gastrointestinal: Denies: Nausea Genitourinary: Denies: Dysuria Hematologic: Denies: Bruising Endocrine: Denies: Polydipsia Musculoskeletal: Denies: Neck Pain Neurological: Denies: Weakness Psych: Reports: Mood Normal Physical Examination General Exam: Positive: Alert, Cooperative Eye Exam: Positive: PERRLA Neck Exam: Positive: Supple, JVD Chest Exam: Positive: Diminished Heart Exam: Positive: Tachycardic Telemetry: Positive: Sinus Abdomen Exam: Negative: Tenderness Extremity Exam: Negative: Clubbing Skin Exam: Positive: Lesion (Bilateral erythema of both distal legs, multiple superficial wounds of left distal leg) Neuro Exam: Positive: Cranial Nerves 3-12 NL Psych Exam: Positive: Oriented x 3 Vital Signs Vital Signs Date Time Temp Pulse Resp B/P (MAP) Pulse Ox O2 Delivery O2 Flow Rate FiO2 06/21/21 10:15 134 18 06/21/21 08:37 96.8 164/117 (133) 96 Nasal Cannula 2.0 Laboratory Data Labs 24H Laboratory Tests 2 06/21/21 08:45: Lactic Acid Level 3.1*H 06/21/21 08:54: Immature Granulocyte % (Auto) 0.4, Neutrophils (%) (Auto) 88.1H, Lymphocytes (%) (Auto) 4.5L, Monocytes (%) (Auto) 5.9, Eosinophils (%) (Auto) 0.7, Basophils (%) (Auto) 0.4, Neutrophils # (Auto) 22.5H, Lymphocytes # (Auto) 1.1L, Monocytes # (Auto) 1.5H, Eosinophils # (Auto) 0.2, Basophils # (Auto) 0.1, Nucleated Red Blood Cells % (auto) 0.0, Blood Gas Bicarbonate Standard 28.6, Venous Blood pH 7.410, Venous Blood Partial Pressure CO2 48.8, Venous Blood Partial Pressure O2 93.2H, Venous Blood Total Carbon Dioxide 31.7H, Venous Blood HCO3 30.2H, Venous Blood Oxygen Saturation 97.0H, Venous Blood Base Excess 4.7H, Anion Gap 8, Glomerular Filtration Rate > 60.0, Calcium Level 9.3, Total Bilirubin 0.6, Direct Bilirubin 0.1, Aspartate Amino Transf (AST/SGOT) 27, Alanine Aminotransferase (ALT/SGPT) 16, Alkaline Phosphatase 111, Total Protein 7.5, Albumin 3.2, Albumin/Globulin Ratio 0.7, Thyroid Stimulating Hormone (TSH) 2.290 06/21/21 09:22: POC Troponin I (Misc) 0.00 CBC/BMP Laboratory Tests 06/21/21 08:54 Microbiology Microbiology 06/21/21 Respiratory Virus Panel (PCR) ([facility]) - Final, Complete 06/21/21 Blood Culture, Received Pending 06/21/21 Blood Culture, Received Pending Assessment/Plan Patient is 65 years old male with past medical history of COPD with chronic hypoxic respiratory failure on 2 L of oxygen, Obesity, Untreated ASH, diabetes, hypertension, diastolic CHF, moderate pulmonary hypertension, mild to moderate Aortic stenosis, HTN, HLD, anxiety, Peripheral neuropathy, Essential tremors, Severe neuralgic pain around the ears and the face/Trigeminal neuralgia, Loss of hearing on the right, Kidney stones, PTSD, Depression presented to the ED with Increasing SOB and legs swelling and pain for past few weeks. Patient stated that he has been having swollen legs for past few weeks associated with erythema and superficial wounds. Patient stated that his legs pain became progressively worse and he cannot tolerated. Also patient stated that he has increased shortness of breath and orthopnea. In ER patient was found to have leukocytosis of 25.6, hemoglobin 12.2, lactic acid 3.1, negative troponin. Doppler ultrasound negative for DVT. Chest x-ray negative for acute pulmonary infiltrates Problems (1) Sepsis Status: Acute Problem Text: Patient developed tachycardia with elevated white blood count most likely secondary to sepsis of lower extremities bilaterally Patient grossly volume overloaded I will hold aggressive fluid infusion Ceftriaxone IV, vancomycin IV Blood culture pending UA ordered (2) Cellulitis Status: Acute Problem Text: Bilateral cellulitis superimposed with +3 pitting edema Start antibiotic therapy with ceftriaxone IV and vancomycin IV Appreciate/agree with wound care consult (3) CHF exacerbation Status: Acute Problem Text: There is concern for acute CHF exacerbation Elevated BNP, echo ordered I's and O's (4) Fluid overload, unspecified Status: Acute Problem Text: Most likely secondary to acute CHF exacerbation We will start diuresis after sepsis resolved (5) Diabetes mellitus Status: Chronic Problem Text: Insulin sliding scale Detemir twice daily (6) Obesity (BMI 30-39.9) Status: Chronic Problem Text: Complicated care (7) COPD (chronic obstructive pulmonary disease) Status: Chronic Problem Text: Not in acute exacerbation Continue inhalers Plan / VTE VTE Prophylaxis Ordered?: Yes NATHALY CAZARES DO Jun 21, 2021 11:53
--- OUTSIDE RECORDS SUMMARY | 2021-06-21 11:55 | CCD ---
Author Author [facility] Organization [facility] Address Unknown Phone Unavailable Care Team Providers Care Cyber Forensics Analyst Name Role Phone Alec Louise MD Unavailable [...] Unavailable Alec Louise MD Unavailable Unavailable Alec oLuise MD Unavailable Unavailable Alec Louise MD Unavailable [...] P Genie DO Unavailable Unavailable Rechlin, P Egnie DO Unavailable Unavailable Rechlin, P Genie DO [...] is protected by Article 27-F of the [facility] Public Health law. If you continue you may have access to information: Regarding HIV / AIDS; Provided by facilities licensed or operated by the [facility] Office of Mental Health; or Provided by the [facility] Office for People With Developmental Disabilities. If such information is present, then the following [facility] mandated warning applies: This information has been [...] law may result in a fine or alf sentence or both. A general authorization for the release of medical or other information is NOT sufficient authorization for further disc losure. Allergies and Adverse Reactions Type Description Substance Reaction Status Data Source(s ) Substance/Environmental Agent Allergy Substance/Environmenta l Agent Allergy Ibuprofen face swelling Moderate [facility] (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) Outpatient Attender: Chas Zuleta 03/10 10:30:00 AM EDT [facility] ([facility] ) Outpatient Attender: Chas Zuleta 01/22 11:30:00 AM EDT [facility] ([facility] ) Outpatient Attender: Chas Zuleta 12/31 10:00:00 AM EDT [facility] ([facility] ) Outpatient Attender: Chas Zuleta 12/03 09:30:00 AM EDT [facility] ([facility] ) Outpatient Attender: Genie Bashir/Demarcus/Tom/Kel hosea 11/28/2020 10:30:00 AM EDT [facility] ([facility] Outpatient Attender: Chas Zuleta 10/15 02:30:00 PM EDT [facility] ([facility] ) Outpatient Attender: Genie Bashir/Demarcus/Tom/Kel ndl 09/25/2020 09:30:00 AM EST [facility] ([facility] Outpatient Attender: Chas Zuleta 09/11 07:00:00 AM EST [facility] ([facility] ) Outpatient Attender: Chas Zuleta 08/23 09:30:00 AM EST [facility] ([facility] ) Outpatient Attender: Genie Esposito/Tom/Kel ndl 06/25/2020 07:30:00 AM EST [facility] ([facility] Outpatient Attender: Chas Zuleta 06/12 08:30:00 AM EST [facility] ([facility] ) Outpatient Attender: GENIE Cisse/Karen/Rein dl 05/15/2020 02:15:00 PM EDT [facility] ([facility]) Immunizations Vaccine Date Status Description Data Source(s) COVID-19 VACCINE Moderna 10/09/2020 12:00:00 AM EDT completed [facility] Vaccine Series Complete: YESThis Data wa s Submitted to [facility] Via [facility]. COVID-19 VACCINE Moderna 09/15/2020 12:00:00 AM EST completed [facility] Vaccine Series Complete: NOThis Data was Submitted to [facility] Via [facility]. New in 2011. IIV4 05/20/2020 07:43:00 AM EST completed [facility] ([facility], ) Medications Medication Brand Name Start Date [...] 04/30/2021 12:00:00 AM EDT ORAL active [facility] ([facility]) Oxygen - Home 04/20/2021 12:00:00 AM EDT acti ve [facility] ([facility]) 3 ML insulin detemir 100 UNT/ML Pen Injector [Levemir] Levem ir Flextouch 04/20/2021 12:00:00 AM EDT active [facility] ([facility]) atorvastatin 10 MG Oral Tablet Atorvastatin Calcium 04/20/2021 1 2:00:00 AM EDT ORAL active [facility] ( [facility]) duloxetine 30 MG Delayed Release Oral Capsule Duloxetine HCL 04/20/2021 12:00:00 AM EDT ORAL active [facility] ([facility]) Tamsulosin hydrochloride 0.4 MG Oral Capsule Tamsulosin HCL 04/20/2021 12:00:00 AM EDT ORAL active [facility] ([facility]) torsemide 20 MG Oral Tablet Torsemide 04/20/2021 12:00:00 AM EDT ORAL active [facility] ([facility]) glimepiride 2 MG Oral Tablet Glimepiride 04/20/2021 12:00:00 AM EDT ORAL active [facility] ([facility]) Metoprolol Tartrate 25 MG Oral Tablet Metoprolol Tartrate 12:00:00 AM EDT ORAL active [facility] ([facility]) 0.3 ML Epinephrine 1 MG/ML Auto-Injector [Epipen] Epipen 2-P ak 04/20/2021 12:00:00 AM EDT active M EDENT ([facility]) Trazodone Hydrochloride 50 MG Oral Tablet Trazodone HCL 04/20/2021 12:00:00 AM EDT ORAL active [facility] doxycycline hyclate 100 MG Oral [...] FOR 2 DAYS THEN STOP SOLD: 02/19/2021 [facility] 250 mg 02/06/2021 12:00:00 AM EDT tablet 6 TAKE TWO TABLETS BY MOUTH AT ONCE ON THE FIRST DAY THEN TAKE ONE DAILY THEREAFTER TAKE TWO TABLETS BY MOUTH AT ONCE ON THE FIRST DAY THEN TAKE ONE DAILY THEREAFTER SOLD: 02/07/2021 [facility] Zithromax Z-Shashi Zithromax Z-Shashi 02/05/2021 12:00:00 AM EDT ORAL active [facility]) 400 mg 01/30/2021 12:00:00 AM [...] Xopenex 01/28/2021 12:00:00 AM EDT active [facility] ([facility] ) 50 mg 01/23/2021 [...] MORNING SOLD: 01/16/2021 [facility] Freestyle Ines 2/[place]/Flash Glucose Monitoring System 12/31/2020 12:00:00 AM EDT [...] 12/23/2020 12:00:00 AM EDT ORAL completed [facility] ([facility]) 250 mg 12/23/2020 12:00:00 AM [...] 10/15/2020 12:00:00 AM EDT ORAL completed [facility] ([facility]) Azithromycin 250 MG Oral Tablet [Zithromax] Zithromax 10/15/2020 12:00:00 AM EDT completed [facility] ([facility]) 250 mg 10/15/2020 12:00:00 AM EDT [...] Tartrate 12:00:00 AM EDT ORAL active [facility] ([facility]) 25 mg 10/11/2020 12:00:00 AM EDT [...] Unspecified 10/09/2020 12:00:00 AM EDT completed [facility] ([facility]) Medication administered onsite Covid-19 vaccine, Unspecified 10/09/2020 12:00:00 AM EDT completed [facility] ([facility]) Medication administered onsite atorvastatin 10 MG Oral Tablet ATORVASTATIN CALCIUM 09/20/2020 1 2:00:00 AM EST tablet 30 TAKE ONE TABLET BY MOUTH EVERY D AY TAKE ONE TABLET BY MOUTH EVERY DAY SOLD: 09/21/2020 [facility] Covid-19 vaccine, Unspecified 09/15/2020 12:00:00 AM EST completed [facility] ([facility]) Medication administered onsite Covid-19 vaccine, Unspecified 09/11/2020 12:00:00 AM EST completed [facility] ([facility]) Medication administered onsite glimepiride 2 MG Oral Tablet GLIMEPIRIDE 09/11/2020 12:00:00 AM EST ta blet 60 TAKE ONE TABLET BY MOUTH TWICE A DAY TAKE ONE TABLET BY MOUTH TWICE A DAY SOLD: 06/11/2021 [facility] 3 ML insulin detemir 100 UNT/ML Pen Injector [Levemir] Levem ir Flextouch 09/11/2020 12:00:00 AM EST active [facility] ([facility]) glimepiride 2 MG Oral Tablet GLIMEPIRIDE [...] 4mm 09/11/2020 12:00:00 AM EST active [facility] ([facility]) glimepiride 2 MG Oral Tablet [...] TABLET BY MOUTH EVERY DAY SOLD: 08/14/2020 [facility] 0.5 % 07/18/2020 12:00:00 AM [...] 12:00 :00 AM EST ORAL completed [facility] ([facility], ) Albuterol 0.833 MG/ML / Ipratropium [place] 0.167 MG/M L Inhalant Solution Ipratropium [place]/Albuterol Sulfate 07/08/2020 12:00:00 AM EST active [facility] ([facility], ) 10 mg 07/08/2020 12:00:00 AM [...] 07/08/2020 12:00:00 AM EST ORAL completed [facility] ([facility], ) atorvastatin 10 MG Oral Tablet ATORVASTATIN CALCIUM 07/05/2020 1 2:00:00 AM EST tablet 30 TAKE ONE TABLET BY MOUTH EVERY D AY TAKE ONE TABLET BY MOUTH EVERY DAY SOLD: 07/06/2020 [facility] Nystatin [id number] UNT/ML Oral Suspension Nystatin 06/27/2020 12:00:00 AM EST ORAL active [facility] ([facility], ) 100,000 unit/mL 06/27/2020 12:00:00 AM EST suspension 200 TAKE 4ML BY MOUTH SWISH AND SWALLOW FOUR TIMES A DAY FOR 10 DAYS TAKE 4ML BY MOUTH SWISH AND SWALLOW FOUR TIMES A DAY FOR 10 DAYS SOLD: 06/29/2020 [facility] Spiriva Respimat Spiriva Respimat 06/25/2020 12:00:00 AM EST RESPIRATORY completed [facility] ([facility], ) 250 mg 06/12/2020 12:00:00 AM EST tablet 6 TAKE TWO TABLETS BY MOUTH AT ONCE ON THE FIRST DAY THEN TAKE ONE DAILY THEREAFTER TAKE TWO TABLETS BY MOUTH AT ONCE ON THE FIRST DAY THEN TAKE ONE DAILY THEREAFTER SOLD: 06/12/2020 [facility] Prednisone 20 MG Oral Tablet Prednisone 06/12/2020 12:00:00 AM EST active [facility] ([facility]) Azithromycin 250 MG Oral Tablet Azithromycin 06/12/2020 12:00:00 AM EST completed [facility] ([facility]) 20 mg 06/12/2020 12:00:00 AM [...] 05/15/2020 12:00:00 AM EDT ORAL active [facility] ([facility]) 20 mg 03/27/2020 12:00:00 AM [...] relationship to cobb Policy Cobb Plan Information [facility] [id number] SP [id number] [employer] [place] [id number] Self [id number] [employer] [place] [id number] Self [id number] [place] [employer] [id number] Self [id number] AETNA MEDICARE O [id number] S MEBTN K6Y AETNA MEDICARE [id number] SP MEBTN [id number] WELLCARE [id number] SP [id number] WELLCARE O [id number] S [id number] WELLCARE [id number] SP [id number] WELLCARE [id number] SP [id number] [facility] Medicaid Commercial [id number] Self [id number] SELF PAY ONLY SP [facility] [id number] SP [id number] [facility] Health Maintenance Organization (HMO) [id number] Self [id number] [facility] Medicaid Commercial [id number] Self [id number] [facility] Healthcare Commercial [id number] Self [id number] P HEALTH CARE O [id number] S [id number] MVP MCDHMO [id number] SP [id number] MVP MCDHMO [id number] SP [id number] MEDICAID [id number] SP [id number] MEDICAID [id number] SP [id number] [facility] Healthcare Commercial MVPM [id number] Self [facility] MCDHMO [id number] SP [id number] [facility] PHY [id number] SP [id number] [facility] PHY [id number] SP [id number] BCBS [place] PPO 302/307 [id number] SP [id number] [facility] HEALTH CARE P [id number] S [id number] [facility] HEALTH CARE P [id number] S [id number] P UNAVAILABLE [place] BLE EXCELLUS BCBS P [id number] S [place] [id number] BCBS [place] PPO 302/307 [id number] SP [id number] [facility] PHY [id number] SP [id number] STATE INSURANCE FUND [id number] SP [id number] BCBS [place] [id number]/804 [id number] SP [id number] BCBS [facility] [facility] 303/803 [id number] SP [id number] BCBS [facility] [facility] 303/803 [id number] SP [id number] BCBS [place] [id number] SP [id number] [facility] [id number] SP [id number] BCBS [place] [id number] [place] [id number] AETNA MEDICARE [id number] SP MEBTN K6Y [id number] MEDICARE [id number] SP [id number] AETNA MEDICARE [id number] SP MEBTN [id number] AETNA MEDICARE O [id number] S [id number] Problems, Conditions, and Diagnoses Code Display Name Description Problem Type Effective Dates Data Source(s) I50.32 Chronic diastolic heart failure Chronic diastolic hear t failure Problem 04/21/2021 12:00:00 AM EDT [facility] ([facility]) E66.8 Obesity Obesity Problem 04/21/2021 12:00:00 AM ED T [facility] ([facility]) I50.20 Systolic heart failure Systolic heart failure Problem 11/28/2020 12:00:00 AM EDT [facility] ([facility]) R09.02 Hypoxemia Hypoxemia Problem 09/25/2020 12:00:00 AM ES T [facility] ([facility]) Surgeries/Procedures Procedure Description Date Indications Data Source(s) OFFICE OUTPATIENT VISIT 25 MINUTES 05/07/2021 12:00:00 AM EDT [facility] ([facility]) ECG ROUTINE ECG W/LEAST 12 LDS W/I&R 04/21/2021 12:00: 00 AM EDT [facility] ([facility]) OFFICE OUTPATIENT VISIT 25 MINUTES 04/21/2021 12:00:00 AM EDT [facility] ([facility]) Spirometry 04/10/2021 12:00:00 AM EDT M EDENT ([facility]) OFFICE OUTPATIENT VISIT 15 MINUTES 04/10/2021 12:00:00 AM EDT [facility] ([facility]) OFFICE OUTPATIENT VISIT 15 MINUTES 03/10/2021 12:00:00 AM EDT MED[facility] ([facility]) Trans Care SRV W/I 14D Of DC, Comm W/I 2 Dys Med Rec 01/22/2021 12:00:00 AM EDT [facility] ([facility] ) OFFICE OUTPATIENT VISIT 25 MINUTES 12/31/2020 12:00:00 AM EDT [facility] ([facility]) Trans Care SRV W/I 14D Of DC, Comm W/I 2 Dys Med Rec 12/03/2020 12:00:00 AM EDT [facility] ([facility] ) Spirometry 11/28/2020 12:00:00 AM EDT M EDENT ([facility]) OFFICE OUTPATIENT VISIT 25 MINUTES 11/28/2020 12:00:00 AM EDT [facility] ([facility]) OFFICE OUTPATIENT VISIT 25 MINUTES 10/15/2020 12:00:00 AM EDT [facility] ([facility]) OFFICE OUTPATIENT VISIT 25 MINUTES 09/11/2020 12:00:00 AM EST [facility] ([facility]) Trans Care SRV W/I 14D Of DC, Comm W/I 2 Dys Med Rec 08/23/2020 12:00:00 AM EST [facility] ([facility] ) Endoscopy Upper GI Complex Diagnostic 06/27/2020 12:00 :00 AM EST [facility] ([facility], ) Dilate Esophagus Unguided Sound Or Bougie 06/27/2020 1 2:00:00 AM EST [facility] ([facility], ) Spirometry 06/25/2020 12:00:00 AM EST M EDENT ([facility]) Results ID Date Data Source [id number] 04/25/2021 10:44:00 AM EDT [facility] ([facility]) Name Value Range Interpretation Code Description Data Hannah rce(s) Supporting Document(s) Platelets [#/volume] in Blood by Automated count 435 150-450 [facility] ID Date Data Source [id number] 04/25/2021 10:44:00 AM EDT [facility] ([facility]) Name Value Range Interpretation Code Description Data Hannah rce(s) Supporting Document(s) Erythrocyte distribution width [Ratio] by Automated count 15.3 11.5-14.5 [facility]) ID Date Data Source [id number] 04/25/2021 10:44:00 AM EDT [facility] ([facility]) Name Value Range Interpretation Code Description Data Hannah rce(s) Supporting Document(s) Erythrocyte mean corpuscular hemoglobin concentration [Mass/volume] by Automated count 30.5 32.0-36.5 [facility] ([facility]) ID Date Data Source [id number] 04/25/2021 10:44:00 AM EDT [facility] ([facility]) Name Value Range Interpretation Code Description Data Hannah rce(s) Supporting Document(s) Erythrocyte mean corpuscular hemoglobin [Entitic mass] by Au tomated count 25.7 27.0-33.0 [facility] ([facility]) ID Date Data Source [id number] 04/25/2021 10:44:00 AM EDT [facility] ([facility]) Name Value Range Interpretation Code Description Data Hannah rce(s) Supporting Document(s) Erythrocyte mean corpuscular volume [Entitic volume] by Auto mated count 84.2 80.0-96.0 [facility] ([facility]) ID Date Data Source [id number] 04/25/2021 10:44:00 AM EDT [facility] ([facility]) Name Value Range Interpretation Code Description Data Hannah rce(s) Supporting Document(s) Hematocrit [Volume Fraction] of Blood by Automated count 40.6 4 2.0-52.0 [facility] ([facility]) ID Date Data Source [id number] 04/25/2021 10:44:00 AM EDT [facility] ([facility]) Name Value Range Interpretation Code Description Data Hannah rce(s) Supporting Document(s) Hemoglobin [Mass/volume] in Blood 12.4 13.5-17.5 [facility] ([facility]) ID Date Data Source [id number] 04/25/2021 10:44:00 AM EDT [facility] ([facility]) Name Value Range Interpretation Code Description Data Hannah rce(s) Supporting Document(s) Natriuretic peptide.B prohormone N-Terminal [Mass/volu me] in Serum or Plasma 30 [facility] ([facility]) ID Date Data Source [id number] 04/25/2021 10:44:00 AM EDT [facility] ([facility]) Name Value Range Interpretation Code Description Data Hannah rce(s) Supporting Document(s) Calcium [Moles/volume] in Serum or Plasma 9.1 8.8-10.2 [facility] ([facility]) ID Date Data Source [id number] 04/25/2021 10:44:00 AM EDT [facility] ([facility]) Name Value Range Interpretation Code Description Data Hannah rce(s) Supporting Document(s) Glucose [Mass/volume] in Serum or Plasma 272 70-100 [facility] ([facility]) ID Date Data Source [id number] 04/25/2021 10:44:00 AM EDT [facility] ([facility]) Name Value Range Interpretation Code Description Data Hannah rce(s) Supporting Document(s) Anion gap 3 in Serum or Plasma 6 8-16 [facility] ([facility]) ID Date Data Source [id number] 04/25/2021 10:44:00 AM EDT [facility] ([facility]) Name Value Range Interpretation Code Description Data Hannah rce(s) Supporting Document(s) Carbon dioxide, total [Moles/volume] in Serum or Plasma 34 21 -32 [facility] ([facility]) ID Date Data Source [id number] 04/25/2021 10:44:00 AM EDT [facility] ([facility]) Name Value Range Interpretation Code Description Data Hannah rce(s) Supporting Document(s) Chloride [Moles/volume] in Serum or Plasma 100 98-107 [facility] ([facility]) ID Date Data Source [id number] 04/25/2021 10:44:00 AM EDT [facility] ([facility]) Name Value Range Interpretation Code Description Data Hannah rce(s) Supporting Document(s) Potassium [Moles/volume] in Serum or Plasma 4.2 3.5-5.1 [facility] ([facility]) ID Date Data Source [id number] 04/25/2021 10:44:00 AM EDT [facility] ([facility]) Name Value Range Interpretation Code Description Data Hannah rce(s) Supporting Document(s) Sodium [Moles/volume] in Serum or Plasma 140 136-145 [facility] ([facility]) ID Date Data Source [id number] 04/25/2021 10:44:00 AM EDT [facility] ([facility]) Name Value Range Interpretation Code Description Data Hannah rce(s) Supporting Document(s) Glomerular filtration rate/1.73 sq M.pre dicted [Volume Rate/Area] in Serum or Plasma by Creatinine-based formula (MDRD) Laboratory test result [facility] ([facility]) ID Date Data Source [id number] 04/25/2021 10:44:00 AM EDT [facility] ([facility]) Name Value Range Interpretation Code Description Data Hannah rce(s) Supporting Document(s) Creatinine [Mass/volume] in Serum or Plasma 0.97 0.70-1.30 [facility] ([facility]) ID Date Data Source [id number] 04/25/2021 10:44:00 AM EDT [facility] ([facility]) Name Value Range Interpretation Code Description Data Hannah rce(s) Supporting Document(s) Urea nitrogen [Mass/volume] in Serum or Plasma 16 7-18 [facility] ([facility]) ID Date Data Source [id number] 04/25/2021 10:44:00 AM EDT [facility] ([facility]) Name Value Range Interpretation Code Description Data Hannah rce(s) Supporting Document(s) Nucleated erythrocytes/100 leukocytes [Ratio] in Blood by Au tomated count 0.0 0-0 [facility] ([facility]) ID Date Data Source [id number] 03/28/2021 01:39:00 PM EDT [facility] ([facility]) Name Value Range Interpretation Code Description Data Hannah rce(s) Supporting Document(s) Calcium [Mass/volume] in Serum or Plasma 8.6 [facility] ([facility]) Carbon dioxide, total [Moles/volume] in Serum or Plasma 40 [facility] ([facility]) Sodium 140 [facility] ([facility]) Chloride [Moles/volume] in Serum or Plasma 99 [facility] ([facility]) Potassium [Moles/volume] in Serum or Plasma 3.6 [facility] ([facility]) Creatinine 0.84 0.6-1.0 [facility] ([facility]) Glucose 200 83-110 [facility] ([facility]) Blood Urea Nitrogen 19 7-18 [facility] ([facility]) Glomerular filtration rate/1.73 sq M.pre dicted [Volume Rate/Area] in Serum or Plasma by Creatinine-based formula (MDRD) Laboratory test result [facility] ([facility]) ID Date Data Source [id number] 03/28/2021 01:39:00 PM EDT [facility] ([facility]) Name Value Range Interpretation Code Description Data Hannah rce(s) Supporting Document(s) Magnesium Level 2.0 1.8-2.4 [facility] ([facility] ID Date Data Source [id number] 03/28/2021 11:21:00 AM EDT [facility] ([facility]) Name Value Range Interpretation Code Description Data Hannah rce(s) Supporting Document(s) Glucose [Mass/volume] in Capillary blood by Glucometer 278 80- 115 [facility] ([facility]) ID Date Data Source [id number] 03/28/2021 07:09:00 AM EDT [facility] ([facility]) Name Value Range Interpretation Code Description Data Hannah rce(s) Supporting Document(s) Magnesium [Mass/volume] in Serum or Plasma 2.0 1.8-2.4 [facility] ([facility]) ID Date Data Source [id number] 03/27/2021 01:37:00 PM EDT [facility] ([facility]) Name Value Range Interpretation Code Description Data Hannah rce(s) Supporting Document(s) Calcium [Mass/volume] in Serum or Plasma 9.2 [facility] ([facility]) Carbon dioxide, total [Moles/volume] in Serum or Plasma 41 [facility] ([facility]) Sodium 139 [facility] ([facility]) Chloride [Moles/volume] in Serum or Plasma 96 [facility] ([facility]) Potassium [Moles/volume] in Serum or Plasma 3.1 [facility] ([facility]) Glucose 234 83-110 [facility] ([facility]) Blood Urea Nitrogen 21 7-18 [facility] [facility] Creatinine 1.00 0.6-1.0 [facility] ([facility]) Glomerular filtration rate/1.73 sq M.pre dicted [Volume Rate/Area] in Serum or Plasma by Creatinine-based formula (MDRD) Laboratory test result [facility] ([facility]) ID Date Data Source [id number] 03/27/2021 01:37:00 PM EDT [facility] ([facility]) Name Value Range Interpretation Code Description Data Hannah rce(s) Supporting Document(s) Magnesium Level 2.0 1.8-2.4 [facility] (Cardio logy [facility]) ID Date Data Source [id number] 03/27/2021 01:37:00 PM EDT [facility] ([facility]) Name Value Range Interpretation Code Description Data Hannah rce(s) Supporting Document(s) White Blood Count 9.8 5.0-10.0 [facility] ([facility]) Red Blood Count 4.64 4.00-5.40 [facility] (Cardio logy [facility]) Platelets 314 172-450 [facility] Hematocrit 40.6 [facility] ([facility]) Hemoglobin 12.4 [facility] ([facility]) ID Date Data Source [id number] 03/27/2021 09:26:00 AM EDT [facility] ([facility]) Name Value Range Interpretation Code Description Data Hannah rce(s) Supporting Document(s) Basophils [#/volume] in Blood by Automated count 0.1 0.0-0.2 [facility] ([facility]) ID Date Data Source [id number] 03/27/2021 09:26:00 AM EDT [facility] ([facility]) Name Value Range Interpretation Code Description Data Hannah rce(s) Supporting Document(s) Eosinophils [#/volume] in Blood by Automated count 0.4 0.0-0.5 [facility] ([facility]) ID Date Data Source [id number] 03/27/2021 09:26:00 AM EDT [facility] ([facility]) Name Value Range Interpretation Code Description Data Hannah rce(s) Supporting Document(s) Monocytes [#/volume] in Blood by Automated count 0.9 0.0-0.8 [facility] ([facility]) ID Date Data Source [id number] 03/27/2021 09:26:00 AM EDT [facility] ([facility]) Name Value Range Interpretation Code Description Data Hannah rce(s) Supporting Document(s) Lymphocytes [#/volume] in Blood by Automated count 1.3 1.5-5.0 [facility] (Cardiology [facility]) ID Date Data Source [id number] 03/27/2021 09:26:00 AM EDT [facility] ([facility]) Name Value Range Interpretation Code Description Data Hannah rce(s) Supporting Document(s) Neutrophils [#/volume] in Blood by Automated count 7.2 1.5-8.5 [facility] ([facility]) ID Date Data Source [id number] 03/27/2021 09:26:00 AM EDT [facility] ([facility]) Name Value Range Interpretation Code Description Data Hannah rce(s) Supporting Document(s) Immature granulocytes/100 leukocytes in Blood by Automated count 0.6 0-3.0 [facility] ([facility]) ID Date Data Source [id number] 03/27/2021 09:26:00 AM EDT [facility] ([facility]) Name Value Range Interpretation Code Description Data Hannah rce(s) Supporting Document(s) Basophils/100 leukocytes in Blood by Automated count 0.9 0.0-1 .0 [facility] ([facility]) ID Date Data Source [id number] 03/27/2021 09:26:00 AM EDT [facility] ([facility]) Name Value Range Interpretation Code Description Data Hannah rce(s) Supporting Document(s) Eosinophils/100 leukocytes in Blood by Automated count 3.9 0.0 -3.0 [facility] ([facility]) ID Date Data Source [id number] 03/27/2021 09:26:00 AM EDT [facility] ([facility]) Name Value Range Interpretation Code Description Data Hannah rce(s) Supporting Document(s) Monocytes/100 leukocytes in Blood by Automated count 8.7 2.0-8 .0 [facility] ([facility]) ID Date Data Source [id number] 03/27/2021 09:26:00 AM EDT [facility] ([facility]) Name Value Range Interpretation Code Description Data Hannah rce(s) Supporting Document(s) Lymphocytes/100 leukocytes in Blood by Automated count 12.9 24. 0-44.0 [facility] ([facility]) ID Date Data Source [id number] 03/27/2021 09:26:00 AM EDT [facility] ([facility]) Name Value Range Interpretation Code Description Data Hannah rce(s) Supporting Document(s) Neutrophils [#/volume] in Blood by Automated count 73.0 36.0-66 .0 [facility] ([facility]) ID Date Data Source [id number] 03/26/2021 01:27:00 PM EDT [facility] ([facility]) Name Value Range Interpretation Code Description Data Hannah rce(s) Supporting Document(s) Magnesium Level 2.0 1.8-2.4 [facility] ([facility]) ID Date Data Source [id number] 03/26/2021 01:27:00 PM EDT [facility] ([facility]) Name Value Range Interpretation Code Description Data Hannah rce(s) Supporting Document(s) Calcium [Mass/volume] in Serum or Plasma 8.2 [facility] ([facility]) Sodium 140 [facility] (Cardiology A [facility]) Carbon dioxide, total [Moles/volume] in Serum or Plasma 38 [facility] ([facility]) Chloride [Moles/volume] in Serum or Plasma 100 [facility] ([facility]iology [facility]) Potassium [Moles/volume] in Serum or Plasma 3.8 [facility] ([facility]) Glucose 184 83-110 [facility] ([facility]iology [facility]) Blood Urea Nitrogen 25 7-18 [facility] (Ca rdiology [facility]) Creatinine 1.03 0.6-1.0 [facility] ([facility]) Glomerular filtration rate/1.73 sq M.pre dicted [Volume Rate/Area] in Serum or Plasma by Creatinine-based formula (MDRD) Laboratory test result [facility] ([facility]) ID Date Data Source [id number] 03/26/2021 01:27:00 PM EDT [facility] ([facility]) Name Value Range Interpretation Code Description Data Hannah rce(s) Supporting Document(s) White Blood Count 13.0 5.0-10.0 [facility]) Platelets 299 172-450 [facility] (Cardiology A ociates [facility]) Red Blood Count 4.20 4.00-5.40 [facility] ([facility]) Hemoglobin 11.2 [facility] ([facility]) Hematocrit 36.7 [facility] ([facility]) ID Date Data Source [id number] 03/25/2021 01:12:00 PM EDT [facility] ([facility]i [facility]gy [facility]) Name Value Range Interpretation Code Description Data Hannah rce(s) Supporting Document(s) Red Blood Count 4.33 4.00-5.40 [facility] ([facility]) White Blood Count 12.6 5.0-10.0 [facility] ([facility]) Hemoglobin 11.5 [facility] ([facility]) Hematocrit 36.8 [facility] ([facility]) Platelets 288 172-450 [facility] (Cardiology A [facility]) ID Date Data Source [id number] 03/25/2021 01:12:00 PM EDT [facility] ([facility]) Name Value Range Interpretation Code Description Data Hannah rce(s) Supporting Document(s) Albumin [Mass/volume] in Serum or Plasma 2.6 [facility] ([facility]) Alanine aminotransferase [Enzymatic activity/volume] in Serum or Pl asma 19 [facility] ([facility]) Calcium [Mass/volume] in Serum or Plasma 8.6 [facility] ([facility]) Carbon dioxide, total [Moles/volume] in Serum or Plasma 34 [facility] ([facility]) Chloride [Moles/volume] in Serum or Plasma 100 [facility] ([facility]) Alkaline phosphatase [Enzymatic activity/volume] in Serum or Plasma 9 0 [facility] ([facility]) Potassium [Moles/volume] in Serum or Plasma 4.7 [facility] ([facility]) Aspartate aminotransferase [Enzymatic activity/volume] in Serum or Plasma 9 [facility] ([facility]) Protein [Mass/volume] in Serum or Plasma 6.5 [facility] ([facility]) Sodium 137 [facility] Urea nitrogen [Mass/volume] in Serum or Plasma 17 [facility] (Cardiology [facility]) Glucose 284 83-110 [facility] ([facility]) Creatinine For GFR 0.85 [facility] ([facility]) ID Date Data Source [id number] 03/25/2021 01:12:00 PM EDT [facility] ([facility]) Name Value Range Interpretation Code Description Data Hannah rce(s) Supporting Document(s) Thyroid Stimulating Hormone 0.307 ME DENT (Cardiology [facility]) ID Date Data Source [id number] 03/25/2021 11:37:00 AM EDT [facility] ([facility]) Name Value Range Interpretation Code Description Data Hannah rce(s) Supporting Document(s) SCCmec + mecA+mecC pnl Nose Laboratory test result [facility] ([facility]) ID Date Data Source [id number] 03/25/2021 05:05:00 AM EDT [facility] ([facility]) Name Value Range Interpretation Code Description Data Hannah rce(s) Supporting Document(s) Albumin/Globulin Ratio 0.7 [facility] ([facility]) ID Date Data Source [id number] 03/25/2021 05:05:00 AM EDT [facility] ([facility]) Name Value Range Interpretation Code Description Data Hannah rce(s) Supporting Document(s) Thyrotropin [Units/volume] in Serum or Plasma by Detec tion limit <= 0.005 mIU/L 0.307 0.358-3.740 [facility] ([facility] [employer] [facility]) ID Date Data Source [id number] 03/25/2021 05:05:00 AM EDT [facility] ([facility]) Name Value Range Interpretation Code Description Data Hannah rce(s) Supporting Document(s) Streptolysin O Ab [Units/volume] in Serum or Plasma 50.0 [facility] ([facility]) ID Date Data Source [id number] 03/25/2021 05:05:00 AM EDT [facility] ([facility]) Name Value Range Interpretation Code Description Data Hannah rce(s) Supporting Document(s) Albumin [Mass/volume] in Serum or Plasma 2.6 3.2-5.2 [facility] ([facility]) ID Date Data Source [id number] 03/25/2021 05:05:00 AM EDT [facility] ([facility]) Name Value Range Interpretation Code Description Data Hannah rce(s) Supporting Document(s) Protein [Mass/volume] in Serum or Plasma 6.5 6.4-8.2 [facility] ([facility]) ID Date Data Source [id number] 03/25/2021 05:05:00 AM EDT [facility] ([facility]) Name Value Range Interpretation Code Description Data Hannah rce(s) Supporting Document(s) Bilirubin.total [Mass/volume] in Serum or Plasma 0.5 0.2-1.0 [facility] ([facility]) ID Date Data Source [id number] 03/25/2021 05:05:00 AM EDT [facility] ([facility]) Name Value Range Interpretation Code Description Data Hannah rce(s) Supporting Document(s) Alkaline phosphatase [Enzymatic activity/volume] in Serum or Melissa sma 90 45-117 [facility] ([facility]) ID Date Data Source [id number] 03/25/2021 05:05:00 AM EDT [facility] ([facility]) Name Value Range Interpretation Code Description Data Hannah rce(s) Supporting Document(s) Alanine aminotransferase [Enzymatic activity/volume] in Seru m or Plasma 19 12-78 [facility] ([facility]) ID Date Data Source [id number] 03/25/2021 05:05:00 AM EDT [facility] ([facility]) Name Value Range Interpretation Code Description Data Hannah rce(s) Supporting Document(s) Aspartate aminotransferase [Enzymatic activity/volume] in Se rum or Plasma 9 7-37 [facility] ([facility]) ID Date Data Source [id number] 03/24/2021 06:12:00 PM EDT [facility] ([facility]) Name Value Range Interpretation Code Description Data Hannah rce(s) Supporting Document(s) Bacteria identified in Blood by Culture Laboratory test result [facility] ([facility]) ID Date Data Source [id number] 03/24/2021 05:09:00 PM EDT [facility] ([facility]) Name Value Range Interpretation Code Description Data Hannah rce(s) Supporting Document(s) Procalcitonin [Mass/volume] in Serum or Plasma Laboratory test result [facility] ([facility]) ID Date Data Source [id number] 03/24/2021 03:08:00 PM EDT [facility] ([facility]) Name Value Range Interpretation Code Description Data Hannah rce(s) Supporting Document(s) C reactive protein [Mass/volume] in Serum or Plasma by High sensitivity method 5.46 0.00-0.30 [facility]) ID Date Data Source [id number] 03/24/2021 03:08:00 PM EDT [facility] ([facility]) Name Value Range Interpretation Code Description Data Hannah rce(s) Supporting Document(s) Troponin I.cardiac [Mass/volume] in Serum or Plasma Laboratory test result [facility] ([facility]) ID Date Data Source [id number] 03/24/2021 03:08:00 PM EDT [facility] ([facility]) Name Value Range Interpretation Code Description Data Hannah rce(s) Supporting Document(s) Creatine kinase.MB [Mass/volume] in Serum or Plasma 1.4 [facility] ([facility]) ID Date Data Source [id number] 03/24/2021 03:08:00 PM EDT [facility] ([facility]) Name Value Range Interpretation Code Description Data Hannah rce(s) Supporting Document(s) Creatine kinase [Enzymatic activity/volume] in Serum or Plasma 53 39-308 [facility] ([facility]) ID Date Data Source [id number] 03/24/2021 03:08:00 PM EDT [facility] ([facility]) Name Value Range Interpretation Code Description Data Hannah rce(s) Supporting Document(s) Creatine kinase.MB/Creatine kinase.total [Pure catalytic fraction] in Serum or Plasma by calculation 2.64 [facility] ([facility]) ID Date Data Source [id number] 03/24/2021 03:08:00 PM EDT [facility] Name Value Range Interpretation Code Description Data Hannah rce(s) Supporting Document(s) SARS-CoV-2 (COVID 19) NEGATIVE - SARS-CoV-2 (COVID19) [facility] This lab was ordered by [facility] a nd reported by [facility]. ID Date Data Source [id number] 03/24/2021 01:21:00 PM EDT [facility] ([facility]) Name Value Range Interpretation Code Description Data Hannah rce(s) Supporting Document(s) White Blood Count 13.4 5.0-10.0 [facility] (Card iology [facility]) Red Blood Count 4.50 4.00-5.40 [facility] (Cardio logy [facility]) Platelets 294 172-450 [facility] Hemoglobin 12.1 [facility] ([facility]) Hematocrit 38.6 [facility] ([facility]) ID Date Data Source [id number] 03/03/2021 12:41:00 PM EDT [facility] ([facility]) Name Value Range Interpretation Code Description Data Hannah rce(s) Supporting Document(s) Base excess in Venous blood by calculation 5.9 [facility] ([facility]) ID Date Data Source [id number] 03/03/2021 12:41:00 PM EDT [facility] ([facility]) Name Value Range Interpretation Code Description Data Hannah rce(s) Supporting Document(s) Sars coronavirus 2 Rna [Presence] in Res piratory specimen by Antelmo with probe detection Laboratory test result [facility] ([facility]) ID Date Data Source [id number] 03/03/2021 12:41:00 PM EDT [facility] ([facility]) Name Value Range Interpretation Code Description Data Hannah rce(s) Supporting Document(s) Respiratory syncytial virus RNA [Presenc e] in Nasopharynx by Probe and target amplification method Laboratory test result [facility] ([facility]) ID Date Data Source [id number] 03/03/2021 12:41:00 PM EDT [facility] ([facility]) Name Value Range Interpretation Code Description Data Hannah rce(s) Supporting Document(s) Influenza virus B RNA [Presence] in Naso pharynx by Probe and target amplification method Laboratory test result [facility] ([facility]) ID Date Data Source [id number] 03/03/2021 12:41:00 PM EDT [facility] ([facility]) Name Value Range Interpretation Code Description Data Hannah rce(s) Supporting Document(s) Influenza virus A RNA [Presence] in Naso pharynx by Probe and target amplification method Laboratory test result [facility] ([facility]) ID Date Data Source [id number] 03/03/2021 12:41:00 PM EDT [facility] ([facility]) Name Value Range Interpretation Code Description Data Hannah rce(s) Supporting Document(s) Oxygen saturation in Venous blood 61.4 60.0-80.0 [facility] ID Date Data Source [id number] 03/03/2021 12:41:00 PM EDT MED[facility] ([facility]) Name Value Range Interpretation Code Description Data Hannah rce(s) Supporting Document(s) Bicarbonate [Moles/volume] standard in Venous blood 28.9 [facility] ([facility]) ID Date Data Source [id number] 03/03/2021 12:41:00 PM EDT [facility] ([facility]) Name Value Range Interpretation Code Description Data Hannah rce(s) Supporting Document(s) Bicarbonate [Moles/volume] in Venous blood 33.2 23.0-27.0 [facility] ([facility]) ID Date Data Source [id number] 03/03/2021 12:41:00 PM EDT [facility] ([facility]) Name Value Range Interpretation Code Description Data Hannah rce(s) Supporting Document(s) Carbon dioxide, total [Moles/volume] in Venous blood by calc ulation 35.1 24.0-28.0 [facility] ([facility]) ID Date Data Source [id number] 03/03/2021 12:41:00 PM EDT [facility] ([facility]) Name Value Range Interpretation Code Description Data Hannha rce(s) Supporting Document(s) Oxygen [Partial pressure] in Venous blood 34.9 30.0-50.0 [facility] ([facility]) ID Date Data Source [id number] 03/03/2021 12:41:00 PM EDT [facility] ([facility]) Name Value Range Interpretation Code Description Data Hannah rce(s) Supporting Document(s) Carbon dioxide [Partial pressure] in Venous blood 60.4 38.0-50. 0 [facility] ([facility]) ID Date Data Source [id number] 03/03/2021 12:41:00 PM EDT [facility] ([facility]) Name Value Range Interpretation Code Description Data Hannah rce(s) Supporting Document(s) pH of Venous blood 7.358 7.330-7.430 [facility] (C [facility]diology [facility]) ID Date Data Source [id number] 03/03/2021 12:41:00 PM EDT [facility] Name Value Range Interpretation Code Description Data Hannah rce(s) Supporting Document(s) Venous PH 7.358 units 7.330-7.430 [facility] ([facility]) Venous Partial Pressure O2 34.9 mmHg 30.0-50.0 [facility] ([facility]) Venous Partial Pressure Co2 60.4 mmHg 38.0-50.0 [facility] ([facility]) Venous Total Co2 35.1 meq/L 24.0-28.0 [facility] ([facility] Venous Hco3 33.2 meq/L 23.0-27.0 [facility] ([facility]) Venous O2 Saturation 61.4 % 60.0-80.0 [facility] Venous Standard Hco3 28.9 meq/L MED[facility] ( [facility]) Venous Base Excess 5.9 [facility] ([facility] ID Date Data Source [id number] 03/03/2021 12:41:00 PM EDT [facility] ([facility]) Name Value Range Interpretation Code Description Data Hannah rce(s) Supporting Document(s) Influenza A Amplification Laboratory test result MED[facility] ([facility]) Negative results do not preclude influen za or RSV virus infection and should not be used as the sole basis for treatment or other patient management decisions. Influenza B Amplification Laboratory test result [facility] ([facility]) Negative results do not preclude influen za or RSV virus infection and should not be used as the sole basis for treatment or other patient management decisions. RSV Amplification Laboratory test result [facility] ([facility]) Negative results do not preclude influen za or RSV virus infection and should not be used as the sole basis for treatment or other patient management decisions. Laboratory test finding (navigational concept) Laboratory test result [facility] ([facility]) A false negative result may occur [...] pathogens. DISCLAIMER: Testing was performed using the [employer] SARS-CoV-2 test. This test was developed and its performance characteristics determined by [employer]. This test has not been FDA cleared [...] or revoked sooner. ID Date Data Source [id number] 03/03/2021 12:41:00 PM EDT [facility] Name Value Range Interpretation Code Description Data Hannah rce(s) Supporting Document(s) SARS coronavirus 2 RNA [Presence] in Res piratory specimen by ANTELMO with probe detection NEGATIVE [facility] This lab was ordered by [facility] a nd reported by [facility]. ID Date Data Source [id number] 03/03/2021 12:12:00 PM EDT [facility] ([facility]) Name Value Range Interpretation Code Description Data Hannah rce(s) Supporting Document(s) Thyroxine (T4) [Mass/volume] in Serum or Plasma 6.9 4.5-12.0 [facility] ([facility]) ID Date Data Source [id number] 03/03/2021 12:12:00 PM EDT [facility] Name Value Range Interpretation Code Description Data Hannah rce(s) Supporting Document(s) Bilirubin.direct [Mass/volume] in Serum or Plasma 0.1 0.0-0.2 [facility] ([facility]) ID Date Data Source [id number] 03/03/2021 12:12:00 PM EDT [facility] ([facility] Name Value Range Interpretation Code Description Data Hannah rce(s) Supporting Document(s) Natriuretic peptide.B prohormone N-Terminal [Mass/volu me] in Serum or Plasma 25 pg/mL [facility] ([place] [facility] Thyrotropin [Units/volume] in Serum or Plasma by Detec tion limit <= 0.05 mIU/L 1.610 uIU/ML 0.358-3.740 [facility] ([place] [facility] Thyroxine (T4) Ab [Units/volume] in Serum 6.9 ug/dL 4.5-12.0 [facility] ([place] [facility] ID Date Data Source [id number] 03/03/2021 12:12:00 PM EDT [facility] ([facility] Name Value Range Interpretation Code Description Data Hannah rce(s) Supporting Document(s) Glucose, Fasting 195 mg/dL 70-100 [facility] ([facility]) Blood Urea Nitrogen 12 mg/dL 7-18 [facility] ([facility]) Creatinine For GFR 0.94 mg/dL 0.70-1.30 [facility] ([facility] Sodium Level 138 meq/L 136-145 [facility] ([place] [facility] Glomerular Filtration Rate Laboratory test result [facility] ([facility]) <content>Units are mL/min/1.73 m2</content>
<content></content>
<content>Chronic Kidney Disease Staging per NKF:</content>
<content></content>
<content>Stage I & II GFR >=60 Normal to Mildly Decreased</content>
<content>Stage III GFR 30- 59 Moderately Decreased</content>
<content>Stage IV GFR 15-29 Severely Decreased</content>
<content>Stage V GFR <15 Very Little GFR Left</content>
<content>ESRD GFR <15 on NAUTICAL INSTRUMENT MECHANIC</content>
<content></content> Chloride Level 100 meq/L 98-107 [facility] ([facility]) Potassium Serum 4.6 meq/L 3.5-5.1 [facility] ([facility]) Calcium Level 8.3 mg/dL 8.8-10.2 [facility] ([facility]) Anion Gap 5 meq/L 8-16 [facility] ([facility]) Carbon Dioxide Level 33 meq/L 21-32 [facility] ([facility]) ID Date Data Source [id number] 03/03/2021 12:12:00 PM EDT [facility] ([facility]) Name Value Range Interpretation Code Description Data Hannah rce(s) Supporting Document(s) Ast/Sgot 13 U/L 7-37 [facility] ([facility]) Alkaline Phosphatase 101 U/L 45-117 [facility] ([facility]) Alt/SGPT 23 U/L 12-78 [facility] ([facility]) Bilirubin,Direct 0.1 mg/dL 0.0-0.2 [facility] ([facility] Bilirubin,Total 0.4 mg/dL 0.2-1.0 [facility] ([facility]) Albumin 3.3 GM/DL 3.2-5.2 [facility] ([facility]) Total Protein 7.0 GM/DL 6.4-8.2 [facility] ([facility]) Albumin/Globulin Ratio 0.9 [facility] ([facility]) ID Date Data Source [id number] 03/03/2021 12:12:00 PM EDT [facility] ([facility]) Name Value Range Interpretation Code Description Data Hannah rce(s) Supporting Document(s) CK-MB Value Mass 2.2 ng/mL [facility] ([facility]) CPK Creatine Phosphokinase 74 U/L 39-308 [facility] ([facility]) MB/CK Relative Index 2.97 [facility] ([facility]) <content>DIAGNOSIS CRITERIA</content>
<content>MMB ng/ml Relative Index (RI)</content>
<content>NON-AMI < or = 5 N/A</content>
<content>TELLO ZONE > 5 < or = 4</content>
<content>AMI > 5 > 4</content>
<content></content> Troponin I Laboratory test result [facility] ([facility]) <content>Troponin I Reference Interval f or Siemens Deputy LOCI:</content>
<content></content>
<content>99th Percentile= 0.00-0.045 ng/ml</content>
<content></content>
<content>Risk Stratification:</content>
<content><= 0.10 ng/ml Decreased Risk for Adverse Clinical</content>
<content>Events.</content>
<content>0.10-1.50 ng/ml Increased Risk for Adverse Clinical</content>
<content>Events. Evaluation of additional</content>
<content>criterion and/or repeat testing in 2-6</content>
<content>hours is suggested to rule out myocardial</content>
<content>damage.</content>
<content>>= 1.50 ng/ml Indicative of Myocardial Injury.</content>
<content></content> ID Date Data Source [id number] 03/03/2021 12:12:00 PM EDT [facility]) Name Value Range Interpretation Code Description Data Hannah rce(s) Supporting Document(s) White Blood Count 14.9 10 4.0-10.0 [facility] ([facility]) Red Blood Count 4.86 10 4.30-6.10 [facility] ([facility]) Hemoglobin 12.9 g/dL 13.5-17.5 [facility] ([place] [facility]) Mean Corpuscular Volume 86.2 fl 80.0-96.0 [facility] ([facility]) Hematocrit 41.9 % 42.0-52.0 [facility] ([place] [facility]) Mean Corpuscular Hemoglobin 26.5 pg 27.0-33.0 [facility] ([facility]) Red Cell Distribution Width 17.1 % 11.5-14.5 [facility] ([facility]) Mean Corpuscular HGB Conc 30.8 g/dL 32.0-36.5 [facility] ([facility]) Platelet Count, Automated 390 10 150-450 [facility] ([facility] [place] [facility]) Neutrophils % 80.2 % 36.0-66.0 [facility] ([place] [facility]) Rich % 6.7 % 2.0-8.0 [facility] ([place] [facility]) Lymph % 9.5 % 24.0-44.0 [facility] ([place] [facility]) Eos % 2.3 % 0.0-3.0 [facility] ([place] [facility]) Baso % 0.6 % 0.0-1.0 [facility] ([place] [facility]) Immature Granulocyte % 0.7 % 0-3.0 [facility] ([facility]) Lymph # 1.4 10 1.5-5.0 [facility] ([place] [facility]) Neutrophils # 11.9 10 1.5-8.5 [facility] ([place] [facility]) Nucleated Red Blood Cell % 0.0 % 0-0 [facility] ([facility]) Rich # 1.0 10 0.0-0.8 [facility] ([place] [facility]) Eos # 0.4 10 0.0-0.5 [facility] ([place] [facility]) Baso # 0.1 10 0.0-0.2 [facility] ([place] [facility]) ID Date Data Source [id number] 02/19/2021 12:30:00 PM EDT [facility] ([facility] Name Value Range Interpretation Code Description Data Hannah rce(s) Supporting Document(s) Calcium [Mass/volume] in Serum or Plasma 9.0 [facility] ([facility]) Sodium 141 [facility] ([facility]) Carbon dioxide, total [Moles/volume] in Serum or Plasma 43 [facility] ([facility]) Chloride [Moles/volume] in Serum or Plasma 95 [facility] ([facility]) Glucose 83 83-110 [facility] ([facility]) Potassium [Moles/volume] in Serum or Plasma 2.9 [facility] ([facility]) Blood Urea Nitrogen 22 7-18 [facility] (Ca rdiology [facility]) Creatinine 0.87 0.6-1.0 [facility] ([facility]) Glomerular filtration rate/1.73 sq M.pre dicted [Volume Rate/Area] in Serum or Plasma by Creatinine-based formula (MDRD) Laboratory test result [facility] ([facility]) ID Date Data Source [id number] 02/19/2021 12:30:00 PM EDT [facility] ([facility]) Name Value Range Interpretation Code Description Data Hannah rce(s) Supporting Document(s) White Blood Count 15.6 5.0-10.0 [facility] ([facility]) Red Blood Count 4.70 4.00-5.40 [facility] (Cardio logy [facility]) Platelets 353 172-450 [facility] ([facility]) Hemoglobin 12.4 [facility] ([facility]) Hematocrit 39.8 [facility] ([facility]) ID Date Data Source [id number] 02/16/2021 05:02:00 PM EDT [facility] ([facility]) Name Value Range Interpretation Code Description Data Hannah rce(s) Supporting Document(s) Lactic Acid Level 1.5 0.4-2.0 [facility] ([facility]) ID Date Data Source [id number] 02/16/2021 05:02:00 PM EDT [facility] ([facility]) Name Value Range Interpretation Code Description Data Hannah rce(s) Supporting Document(s) CK-MB Value Mass 1.7 ng/mL [facility] ([facility]) CPK Creatine Phosphokinase 51 U/L 39-308 [facility] ([facility] [place] [facility]) MB/CK Relative Index 3.[address] [facility] ([facility]) <content>DIAGNOSIS CRITERIA</content>
<content>MMB ng/ml Relative Index (RI)</content>
<content>NON-AMI < or = 5 N/A</content>
<content>TELLO ZONE > 5 < or = 4</content>
<content>AMI > 5 > 4</content>
<content></content> Troponin I Laboratory test result [facility]) <content>Troponin I Reference Interval f or Siemens Deputy LOCI:</content>
<content></content>
<content>99th Percentile= 0.00-0.045 ng/ml</content>
<content></content>
<content>Risk Stratification:</content>
<content><= 0.10 ng/ml Decreased Risk for Adverse Clinical</content>
<content>Events.</content>
<content>0.10-1.50 ng/ml Increased Risk for Adverse Clinical</content>
<content>Events. Evaluation of additional</content>
<content>criterion and/or repeat testing in 2-6</content>
<content>hours is suggested to rule out myocardial</content>
<content>damage.</content>
<content>>= 1.50 ng/ml Indicative of Myocardial Injury.</content>
<content></content> ID Date Data Source [id number] 02/16/2021 05:02:00 PM EDT [facility]) Name Value Range Interpretation Code Description Data Hannah rce(s) Supporting Document(s) Venous PH 7.391 units 7.330-7.[address] [facility] ([facility]) Venous Partial Pressure Co2 51.4 mmHg 38.0-50.[address] [facility] ([facility] [place] [facility]) Venous Partial Pressure O2 51.8 mmHg 30.0-50.0 [facility] ([facility] [place] [facility]) Venous Total Co2 32.1 meq/L 24.0-28.0 [facility] ([facility]) Venous Base Excess 4.3 [facility] ([facility]) Venous Hco3 30.5 meq/L 23.0-27.0 [facility] ([facility] [place] [facility]) Venous O2 Saturation 86.8 % 60.0-80.0 [facility] ([facility]) Venous Standard Hco3 28.0 meq/L [facility] ( [facility] [place] [facility]) ID Date Data Source [id number] 02/16/2021 05:02:00 PM EDT [facility] ([facility]) Name Value Range Interpretation Code Description Data Hannah rce(s) Supporting Document(s) Hemoglobin 14.0 g/dL 13.5-17.5 [facility] ([place] [facility]) Red Blood Count 5.40 10 4.30-6.10 [facility] ([facility]) White Blood Count 14.4 10 4.0-10.0 [facility] ([facility]) Mean Corpuscular Volume 85.6 fl 80.0-96.0 [facility] ([facility] [place] [facility]) Hematocrit 46.2 % 42.0-52.0 [facility] ([place] [facility]) Mean Corpuscular Hemoglobin 25.9 pg 27.0-33.0 [place] [facility] ([facility] [place] [facility]) Mean Corpuscular HGB Conc 30.3 g/dL 32.0-36.5 [facility] ([facility] [place] [facility]) Red Cell Distribution Width 18.1 % 11.5-14.5 [facility] ([facility] [place] [facility]) Neutrophils % 78.9 % 36.0-66.0 [facility] ([facility]) Platelet Count, Automated 331 10 150-450 [facility] ([facility] [place] [facility]) Rich % 5.7 % 2.0-8.0 [facility] ([place] [facility]) Lymph % 10.8 % 24.0-44.0 [facility] ([place] [facility]) Eos % 3.3 % 0.0-3.0 [facility] ([place] [facility]) Baso % 0.9 % 0.0-1.0 [facility] ([facility]) Immature Granulocyte % 0.4 % 0-3.0 [facility] ([facility] [place] [facility]) Neutrophils # 11.4 10 1.5-8.5 [facility] ([facility]) Nucleated Red Blood Cell % 0.0 % 0-0 [facility] ([place] [facility]) Lymph # 1.6 10 1.5-5.0 [facility] ([place] [facility]) Eos # 0.5 10 0.0-0.5 [facility] ([facility]) Rich # 0.8 10 0.0-0.8 [facility] ([facility]) Baso # 0.1 10 0.0-0.2 [facility] ([facility]) ID Date Data Source [id number] 02/16/2021 05:02:00 PM EDT [facility] ([facility]) Name Value Range Interpretation Code Description Data Hannah rce(s) Supporting Document(s) Lactate [Mass/volume] in Serum or Plasma 1.5 mmol/L 0.4-2.0 [facility] ([facility] [place] [facility]) Y/N query for Sepsis Lactate Rule: Y ID Date Data Source [id number] 02/16/2021 05:02:00 PM EDT [facility] ([facility]) Name Value Range Interpretation Code Description Data Hannah rce(s) Supporting Document(s) Ast/Sgot 11 U/L 7-37 [facility] ([facility]) Alt/SGPT 26 U/L 12-78 [facility] ([facility]) Bilirubin,Total 0.5 mg/dL 0.2-1.0 [facility] ([facility]) Alkaline Phosphatase 112 U/L 45-117 [facility] ([facility]) Total Protein 7.4 GM/DL 6.4-8.2 [facility] ([facility]) Bilirubin,Direct 0.2 mg/dL 0.0-0.2 [facility] ([facility]) Albumin/Globulin Ratio 0.9 [facility] ([facility] [place] [facility]) Albumin 3.6 GM/DL 3.2-5.2 [facility] ([place] [facility]) ID Date Data Source [id number] 02/16/2021 05:02:00 PM EDT [facility] ([facility]) Name Value Range Interpretation Code Description Data Hannah rce(s) Supporting Document(s) Blood Urea Nitrogen 18 mg/dL 7-18 [facility] ([facility]) Glucose, Fasting 181 mg/dL 70-100 [facility] ([facility]) Creatinine For GFR 0.89 mg/dL 0.70-1.30 [facility] ([facility]) Sodium Level 137 meq/L 136-145 [facility] ([facility] [place] [facility]) Glomerular Filtration Rate Laboratory test result [facility] ([facility] [place] [facility]) <content>Units are mL/min/1.73 m2</content>
<content></content>
<content>Chronic Kidney Disease Staging per NKF:</content>
<content></content>
<content>Stage I & II GFR >=60 Normal to Mildly Decreased</content>
<content>Stage III GFR 30- 59 Moderately Decreased</content>
<content>Stage IV GFR 15-29 Severely Decreased</content>
<content>Stage V GFR <15 Very Little GFR Left</content>
<content>ESRD GFR <15 on NAUTICAL INSTRUMENT MECHANIC</content>
<content></content> Potassium Serum 4.3 meq/L 3.5-5.1 [facility] ([facility]) Chloride Level 100 meq/L 98-107 [facility] ([facility]) Anion Gap 6 meq/L 8-16 [facility] ([place] [facility]) Carbon Dioxide Level 31 meq/L 21-32 [facility] ([facility]) Calcium Level 9.2 mg/dL 8.8-10.2 [facility] ([facility]) ID Date Data Source [id number] 02/16/2021 05:02:00 PM EDT [facility] ([facility]) Name Value Range Interpretation Code Description Data Hannah rce(s) Supporting Document(s) Thyroxine (T4) Ab [Units/volume] in Serum 6.6 ug/dL 4.5-12.[address] [facility] ([place] [facility] Natriuretic peptide.B prohormone N-Terminal [Mass/volu me] in Serum or Plasma 27 pg/mL [facility] ([place] [facility] Thyrotropin [Units/volume] in Serum or Plasma by Detec tion limit <= 0.05 mIU/L 1.250 uIU/ML 0.358-3.[address] [facility] ([place] [facility] ID Date Data Source [id number] 02/16/2021 05:02:00 PM EDT [facility] Name Value Range Interpretation Code Description Data Hannah rce(s) Supporting Document(s) Respiratory Panel Laboratory test result [facility] ([facility]) This respiratory [...] - SARS-CoV-2 (COVID19) ID Date Data Source [id number] 02/16/2021 05:02:00 PM EDT [facility] Name Value Range Interpretation Code Description Data Hannah rce(s) Supporting Document(s) SARS-CoV-2 (COVID 19) NEGATIVE - SARS-CoV-2 (COVID19) [facility] This lab was ordered by [facility] a nd reported by [facility]. ID Date Data Source [id number] 02/16/2021 12:25:00 PM EDT [facility] ([facility]) Name Value Range Interpretation Code Description Data Hannah rce(s) Supporting Document(s) Red Blood Count 5.40 4.00-5.40 [facility] ([facility]) White Blood Count 14.4 5.0-10.0 [facility] ([facility]) Platelets 331 172-450 [facility] ([facility]) Hemoglobin 14.0 [facility] ([facility]) Hematocrit 46.2 [facility] ([facility]) ID Date Data Source [id number] 02/16/2021 12:25:00 PM EDT [facility] Name Value Range Interpretation Code Description Data Hannah rce(s) Supporting Document(s) Alanine aminotransferase [Enzymatic activity/volume] in Serum or Pl asma 26 [facility] ([facility]) Albumin [Mass/volume] in Serum or Plasma 3.6 [facility] ([facility]) Calcium [Mass/volume] in Serum or Plasma 9.2 [facility] ([facility]) Carbon dioxide, total [Moles/volume] in Serum or Plasma 31 [facility] ([facility]) Chloride [Moles/volume] in Serum or Plasma 100 [facility] ([facility]) Potassium [Moles/volume] in Serum or Plasma 4.3 [facility] ([facility]) Alkaline phosphatase [Enzymatic activity/volume] in Serum or Plasma 1 12 [facility] ([facility]) Protein [Mass/volume] in Serum or Plasma 7.4 [facility] ([facility]) Aspartate aminotransferase [Enzymatic activity/volume] in Serum or Plasma 11 [facility] ([facility]) Sodium 137 [facility] ([facility]) Urea nitrogen [Mass/volume] in Serum or Plasma 18 [facility] ([facility]) Glucose 181 83-110 [facility] ([facility]) Creatinine For GFR 0.89 [facility] ([facility]) ID Date Data Source [id number] 02/16/2021 12:25:00 PM EDT [facility] ([facility]) Name Value Range Interpretation Code Description Data Hannah rce(s) Supporting Document(s) Thyroid Stimulating Hormone 1.250 [facility] ([facility]) ID Date Data Source [id number] 01/27/2021 06:16:00 AM EDT [facility] ([facility]) Name Value Range Interpretation Code Description Data Hannah rce(s) Supporting Document(s) Hemoglobin A1c/Hemoglobin.total in Blood 8.6 [facility] ([facility]) ID Date Data Source [id number] 01/27/2021 06:16:00 AM EDT [facility] ([facility]) Name Value Range Interpretation Code Description Data Hannah rce(s) Supporting Document(s) Glucose mean value [Mass/volume] in Blood Estimated fr om glycated hemoglobin 200 60-110 [facility] ([facility] [employer] [facility]) ID Date Data Source [id number] 01/26/2021 03:52:00 PM EDT [facility] ([facility] Name Value Range Interpretation Code Description Data Hannah rce(s) Supporting Document(s) Laboratory test finding (navigational concept) 7.364 units 7.350-7.45 0 [facility] ([facility]) Laboratory test finding (navigational concept) 56.8 MMHG 35.0-45.0 [facility] ([facility] [place] [facility]) Laboratory test finding (navigational concept) 77.0 MMHG 80-105 [facility] ([facility] [place] [facility]) Laboratory test finding (navigational concept) 34.0 mmol/L 23.0-27.0 [facility] ([facility] [place] [facility]) Laboratory test finding (navigational concept) 32.4 mmol/L 22.0-26.0 [facility] ([facility] [place] [facility]) Laboratory test finding (navigational concept) 7.0 mmol/L [facility] ([facility] [place] [facility]) Laboratory test finding (navigational concept) 94 % 95-98 [facility] ([facility] [place] [facility]) ID Date Data Source [id number] 01/26/2021 03:52:00 PM EDT [facility] ([facility]) Name Value Range Interpretation Code Description Data Hannah rce(s) Supporting Document(s) Oxygen saturation Calculated from oxygen partial pressure in Arterial blood 94 95-98 [facility] ([facility]) ID Date Data Source [id number] 01/26/2021 03:52:00 PM EDT [facility] ([facility]) Name Value Range Interpretation Code Description Data Hannah rce(s) Supporting Document(s) Base excess standard in Arterial blood by calculation 7.0 [facility] ID Date Data Source [id number] 01/26/2021 03:52:00 PM EDT [facility] ([facility]) Name Value Range Interpretation Code Description Data Hannah rce(s) Supporting Document(s) Laboratory test finding (navigational concept) 34.0 23.0-27.0 [facility] ([facility]) ID Date Data Source [id number] 01/26/2021 03:52:00 PM EDT [facility] ([facility]) Name Value Range Interpretation Code Description Data Hannah rce(s) Supporting Document(s) Oxygen [Partial pressure] in Arterial blood 77.0 80-105 [facility] ([facility]) ID Date Data Source [id number] 01/26/2021 03:52:00 PM EDT [facility] ([facility]) Name Value Range Interpretation Code Description Data Hannah rce(s) Supporting Document(s) Carbon dioxide [Partial pressure] in Arterial blood 56.8 35.0-4 5.0 [facility] ([facility]) ID Date Data Source [id number] 01/26/2021 03:52:00 PM EDT [facility] ([facility]) Name Value Range Interpretation Code Description Data Hannah rce(s) Supporting Document(s) Bicarbonate [Moles/volume] in Arterial blood 32.4 22.0-26.0 [facility] ([facility]) ID Date Data Source [id number] 01/26/2021 03:52:00 PM EDT [facility] ([facility]) Name Value Range Interpretation Code Description Data Hannah rce(s) Supporting Document(s) pH of Arterial blood 7.364 7.350-7.450 [facility] ([facility]) ID Date Data Source [id number] 01/26/2021 02:53:00 PM EDT [facility] ([facility]) Name Value Range Interpretation Code Description Data Hannah rce(s) Supporting Document(s) Laboratory test finding (navigational concept) 0.00 ng/mL 0.00-0.08 [facility] ([facility] [place] [facility]) ID Date Data Source [id number] 01/26/2021 02:53:00 PM EDT [facility] ([facility]) Name Value Range Interpretation Code Description Data Hannah rce(s) Supporting Document(s) Troponin I.cardiac [Mass/volume] in Blood 0.00 0.00-0.08 [facility] ([facility]) ID Date Data Source [id number] 01/26/2021 02:49:00 PM EDT [facility] Name Value Range Interpretation Code Description Data Hannah rce(s) Supporting Document(s) SARS-CoV-2 (COVID 19) NEGATIVE - SARS-CoV-2 (COVID19) [facility] This lab was ordered by [facility] a nd reported by [facility]. ID Date Data Source [id number] 01/11/2021 07:39:00 AM EDT [facility] ([facility]) Name Value Range Interpretation Code Description Data Hannah rce(s) Supporting Document(s) Laboratory test finding (navigational concept) 7.389 units 7.350-7.45 0 [facility] ([facility]) Laboratory test finding (navigational concept) 59.8 MMHG 35.0-45.0 [facility] ([facility]) Laboratory test finding (navigational concept) 77.0 MMHG 80-105 [facility] ([facility]) Laboratory test finding (navigational concept) 11.0 mmol/L [facility] ([facility]) Laboratory test finding (navigational concept) 36.1 mmol/L 22.0-26.0 [facility] ([facility]) Laboratory test finding (navigational concept) 38.0 mmol/L 23.0-27.0 [facility] ([facility]) Laboratory test finding (navigational concept) 95 % 95-98 [facility] ([facility]) ID Date Data Source [id number] 01/11/2021 05:51:00 AM EDT [facility] ([facility]) Name Value Range Interpretation Code Description Data Hannah rce(s) Supporting Document(s) pH of Arterial blood 7.312 7.350-7.450 [facility] ([facility]) ID Date Data Source [id number] 01/11/2021 05:51:00 AM EDT [facility] ([facility]) Name Value Range Interpretation Code Description Data Hannah rce(s) Supporting Document(s) Carbon dioxide [Partial pressure] in Arterial blood 60.4 35.0-4 5.0 [facility] ([facility]) ID Date Data Source [id number] 01/11/2021 05:51:00 AM EDT [facility] ([facility]) Name Value Range Interpretation Code Description Data Hannah rce(s) Supporting Document(s) Oxygen [Partial pressure] in Arterial blood 101.6 75.0-100.0 [facility] ([facility]) ID Date Data Source [id number] 01/11/2021 05:51:00 AM EDT [facility] ([facility]) Name Value Range Interpretation Code Description Data Hannah rce(s) Supporting Document(s) Carbon dioxide, total [Moles/volume] in Arterial blood by ca lculation 31.7 23.0-31.0 [facility] ([facility]) ID Date Data Source [id number] 01/11/2021 05:51:00 AM EDT [facility] ([facility]) Name Value Range Interpretation Code Description Data Hannah rce(s) Supporting Document(s) Bicarbonate [Moles/volume] in Arterial blood 29.9 22.0-26.0 [facility] ([facility]) ID Date Data Source [id number] 01/11/2021 05:51:00 AM EDT [facility] ([facility]) Name Value Range Interpretation Code Description Data Hannah rce(s) Supporting Document(s) Base excess in Arterial blood by calculation 2.2 [facility] ([facility]) ID Date Data Source [id number] 01/11/2021 05:51:00 AM EDT [facility] ([facility]) Name Value Range Interpretation Code Description Data Hannah rce(s) Supporting Document(s) Bicarbonate [Moles/volume] standard in Arterial blood 26.4 22.0 -26.0 [facility] ([facility]) ID Date Data Source [id number] 01/11/2021 05:51:00 AM EDT [facility] ([facility]) Name Value Range Interpretation Code Description Data Hannah rce(s) Supporting Document(s) Oxygen saturation in Arterial blood 97.6 95.0-99.0 [facility] ([facility]) ID Date Data Source [id number] 01/11/2021 04:11:00 AM EDT [facility] Name Value Range Interpretation Code Description Data Hannah rce(s) Supporting Document(s) SARS-CoV-2 (COVID 19) NEGATIVE - SARS-CoV-2 (COVID19) [facility] This lab was ordered by [facility] a nd reported by [facility]. ID Date Data Source [id number] 01/11/2021 03:59:00 AM EDT [facility] ([facility]) Name Value Range Interpretation Code Description Data Hannah rce(s) Supporting Document(s) Thyroxine (T4) free [Mass/volume] in Serum or Plasma 0.84 0.76- 1.46 [facility] ([facility]) ID Date Data Source [id number] 12/31/2020 11:19:00 AM EDT [facility] Name Value Range Interpretation Code Description Data Hannah rce(s) Supporting Document(s) Leukocytes [#/volume] in Blood by Automated count 18.3 x10*3/UL 4.1-1 0.9 [facility] ([facility]) NOTE: RESULT VERIFIED. Erythrocytes [#/volume] in Blood by Automated count 5.00 x10*6/UL 4.2 0-6.30 [facility] Hematocrit [Volume Fraction] of Blood by Automated count 41.2 % 3 7.0-51.0 [facility] Hemoglobin [Mass/volume] in Blood 13.3 g/dL 12.0-18.0 [facility] ([facility]) MCH 26.6 pg 26.0-32.0 [facility] [place] [facility] MCV 82.4 fL 80.0-97.0 [facility] ([facility]) MCHC 32.2 g/dL 31.0-38.0 [facility] ([facility]) Platelets [#/volume] in Blood by Automated count 519 x10*3/UL 140-440 [facility] Erythrocyte distribution width [Ratio] by Automated count 15.6 % 11.6-13.7 [facility] ([facility]) MPV 7.6 FL 7.8-11.0 [facility] Mid % 2.4 % 1.7-9.3 [facility]) Neut % 88.9 % 37.0-92.0 [facility] Lymph % 8.7 % 10.0-58.5 [facility] Lymph # 1.6 x10*3/UL 0.6-4.1 [facility] ([facility]) Mid # 0.4 x10*3/UL 0.1-0.6 [facility] ([facility]) Neut # 16.3 x10*3/UL 2.0-7.8 [facility] ([facility]) ID Date Data Source [id number] 12/31/2020 11:19:00 AM EDT [facility] ([facility]) Name Value Range Interpretation Code Description Data Hannah rce(s) Supporting Document(s) Urea nitrogen [Mass/volume] in Serum or Plasma 17 mg/dL 7-18 [facility] ([facility]) Glucose [Mass/volume] in Serum or Plasma 202 mg/dL 74-99 [facility] ([facility]) 100-125 mg/dL PRE-DIABETES/FASTING >126 mg/dL DIABETES/FASTING Creatinine 0.9 mg/dL 0.6-1.3 [facility] ([facility]) Sodium [Moles/volume] in Serum or Plasma 142 meq/L 136-145 [facility] ([facility]) Potassium [Moles/volume] in Serum or Plasma 4.6 meq/L 3.5-5.1 [facility] ([facility]) Chloride [Moles/volume] in Serum or Plasma 102 meq/L 98-107 [facility] ([facility]) Carbon dioxide, total [Moles/volume] in Serum or Plasma 35 meq/L 21 -32 [facility] ([facility]) NOTE: RESULT VERIFIED. Alkaline phosphatase isoenzyme [Units/volume] in Serum or Pl asma 112 mg/dL 46-116 [facility] ([facility]) Calcium [Mass/volume] in Serum or Plasma 9.2 mg/dL 8.5-10.1 [facility] ([facility]) Total Bilirubin 0.3 mg/dL 0.2-1.[address] [facility] ([facility]) Aspartate aminotransferase [Enzymatic activity/volume] in Serum or Plasma 12 U/L 15-37 [facility] ([facility] ) Alanine aminotransferase [Enzymatic activity/volume] in Seru m or Plasma 21 U/L 12-78 [facility] ([facility]) Albumin [Mass/volume] in Serum or Plasma 3.0 g/dL 3.4-5.0 [facility] ([facility]) Proteinase 3 Ab [Units/volume] in Serum 6.5 g/dL 6.4-8.[address] [facility] ([facility]) Glomerular filtration rate/1.73 sq M pre dicted among blacks [Volume Rate/Area] in Serum or Plasma by Creatinine-based formula (MDRD) Laboratory test result [facility] ([facility] <content>CHRONIC KIDNEY DISEASE STAGING PER NKF</content>
<content></content>
<content>STAGE I & II GFR >= 60 NORMAL TO MILDLY DECREASED</content>
<content>STAGE III GFR 30-59 MODERATELY DECREASED</content>
<content>STAGE IV GFR 15-29 SEVERELY DECREASED</content>
<content>STAGE V GFR <15 VERY LITTLE GFR LEFT</content>
<content>ESRD GFR <15 ON NAUTICAL INSTRUMENT MECHANIC</content>
<content></content> A/G Ratio 0.86 CALC 1.00-1.[address] [facility]) Glomerular filtration rate/1.73 sq M pre dicted among non-blacks [Volume Rate/Area] in Serum or Plasma by Creatinine-based formula (MDRD) Laboratory test result [facility] ([facility] ) ID Date Data Source [id number] 12/31/2020 11:19:00 AM EDT [facility] ([facility]) Name Value Range Interpretation Code Description Data Hannah rce(s) Supporting Document(s) Hemoglobin A1c/Hemoglobin.total in Blood 8.5 % [facility] ([facility]) Lab Result Notes: Pre-Diabetes 5.7 - 6.4 % Diabetes = or > 6.5% Glucose mean value [Mass/volume] in Blood Estimated fr om glycated hemoglobin 197 mg/dL 60-110 [facility] ([facility] ) ID Date Data Source [id number] 11/28/2020 10:30:00 AM EDT [facility] ([facility]) Name Value Range Interpretation Code Description Data Hannah rce(s) Supporting Document(s) PDFReport Laboratory test result [facility] ([facility], ) FVC-Pre 0.82 L [facility] ([facility]) FVC-%Pred-Pre 17 L [facility] ([facility]) FVC-Pred 4.61 L [facility] ([facility]) Fev1-Pred 3.44 L [facility] ([facility]) FVC-LLN 3.67 L [facility] ([facility]) Fev1-Pre 0.60 L [facility] ([facility]) Fev1-LLN 2.65 L [facility] ([facility]) Fev1-%Pred-Pre 17 L [facility] ([facility]) Fev6-%Pred-Pre 18 L [facility] ([facility]) Fev6-Pred 4.37 L [facility] ([facility]) Fev6-Pre 0.82 L [facility] ([facility]) Fev6-LLN 3.46 L [facility] ([facility]) Ujf3law-Gdfh 75 % [facility] ([facility]) Cfw6krn-Tbz 74 % [facility] ([facility]) Kvm5bfu-AZL 65 % [facility] ([facility]) Mac5nvw-%Pred-Pre 99 % [facility] ([facility]) Hkx9sen-Vhwl 95 % [facility] ([facility]) Jnv1mky-%Pred-Pre 105 % [facility] ([facility]) Dhh9kle-Avz 100 % [facility] ([facility]) FEFMax-%Pred-Pre 10 L/E/sec [facility] ([facility], ) FEFMax-Pre 0.96 L/E/sec [facility] ([facility]) FEFMax-Pred 8.82 L/E/sec [facility] ([facility], ) Mww6978-Zju 0.49 L/E/sec [facility] ([facility], ) Fxb8086-Adhh 2.72 L/E/sec [facility] ([facility], ) FEFMax-LLN 6.50 L/E/sec [facility] ([facility]) Vwi2529-XBF 1.12 L/E/sec [facility] ([facility]) Xoq0500-%Pred-Pre 18 L/E/sec [facility] ([facility]) Rfn5sba0-Yvmv 78 % [facility] ([facility]) ExpTime-Pre 2.65 sec [facility] ([facility]) Ueb9hny2-Vsn 74 % [facility] ([facility]) Dem6eww7-%Pred-Pre 94 % [facility] ([facility]) Zil0goq5-WMV 69 % [facility] ([facility]) ID Date Data Source [id number] 11/21/2020 07:03:00 AM EDT [facility] ([facility]) Name Value Range Interpretation Code Description Data Hannah rce(s) Supporting Document(s) Aspergillus fumigatus IgE Ab [Units/volume] in Serum Laboratory joseph t result [facility] ([facility]) ID Date Data Source [id number] 11/21/2020 07:03:00 AM EDT [facility] ([facility]) Name Value Range Interpretation Code Description Data Hannah rce(s) Supporting Document(s) Aspergillus niger IgE Ab [Units/volume] in Serum Laboratory test resu lt [facility] ([facility]) ID Date Data Source [id number] 11/20/2020 01:29:00 PM EDT [facility] ([facility]) Name Value Range Interpretation Code Description Data Hannah rce(s) Supporting Document(s) ABG pH (Arterial) 7.459 units 7.350-7.450 [facility] ( [facility]) ABG Partial Pressure Co2 39.5 mmHg 35.0-45.0 MEDEN T ([facility]) ABG Partial Pressure O2 100.7 mmHg 75.0-100.0 MEDE NT ([facility]) ABG Total Co2 28.6 meq/L 23.0-31.0 [facility] ([facility]) ABG Hco3 27.4 meq/L 22.0-26.0 [facility] ABG Base Excess 3.4 [facility] ([facility]) ABG Standard Hco3 27.5 meq/L 22.0-26.0 [facility] ([facility]) ABG O2 Saturation 98.1 % 95.0-99.0 [facility] ([facility]) ID Date Data Source [id number] 11/20/2020 01:11:00 PM EDT [facility] ([facility]) Name Value Range Interpretation Code Description Data Hannah rce(s) Supporting Document(s) Respiratory Panel [facility] This respiratory PCR panel detects Influ [...] - SARS-CoV-2 (COVID19) ID Date Data Source [id number] 11/20/2020 01:11:00 PM EDT [facility] Name Value Range Interpretation Code Description Data Hannah rce(s) Supporting Document(s) SARS-CoV-2 (COVID 19) NEGATIVE - SARS-CoV-2 (COVID19) [facility] This lab was ordered by [facility] a nd reported by [facility]. ID Date Data Source [id number] 11/20/2020 01:02:00 PM EDT [facility] ([facility]) Name Value Range Interpretation Code Description Data Hannah rce(s) Supporting Document(s) Natriuretic peptide.B prohormone N-Terminal [Mass/volu me] in Serum or Plasma 36 pg/mL [facility] ([facility] ) ID Date Data Source [id number] 11/20/2020 01:02:00 PM EDT [facility] ([facility]) Name Value Range Interpretation Code Description Data Hannah rce(s) Supporting Document(s) Glucose, Fasting 180 mg/dL 70-100 [facility] ([facility]) Blood Urea Nitrogen 13 mg/dL 7-18 [facility] ([facility]) Creatinine For GFR 0.80 mg/dL 0.70-1.30 [facility] ([facility]) Glomerular Filtration Rate Laboratory test result [facility] ([facility]) <content>Units are mL/min/1.73 m2</content>
<content></content>
<content>Chronic Kidney Disease Staging per NKF:</content>
<content></content>
<content>Stage I & II GFR >=60 Normal to Mildly Decreased</content>
<content>Stage III GFR 30- 59 Moderately Decreased</content>
<content>Stage IV GFR 15-29 Severely Decreased</content>
<content>Stage V GFR <15 Very Little GFR Left</content>
<content>ESRD GFR <15 on NAUTICAL INSTRUMENT MECHANIC</content>
<content></content> Potassium Serum 5.0 meq/L 3.5-5.1 [facility] ([facility]) Sodium Level 136 meq/L 136-145 [facility] ([facility]) Carbon Dioxide Level 34 meq/L 21-32 [facility] ([facility]) Chloride Level 99 meq/L 98-107 [facility] ([facility]) Calcium Level 9.0 mg/dL 8.8-10.2 [facility] ([facility]) Anion Gap 3 meq/L 8-16 [facility] [facility]) ID Date Data Source [id number] 11/20/2020 01:02:00 PM EDT [facility] ([facility]) Name Value Range Interpretation Code Description Data Hannah rce(s) Supporting Document(s) Alt/SGPT 25 U/L 12-78 [facility] [facility]) Ast/Sgot 22 U/L 7-37 [facility] ([facility]) Alkaline Phosphatase 117 U/L 45-117 [facility] ([facility] Bilirubin,Direct Laboratory test result 0.0-0.2 [facility] ([facility]) Bilirubin,Total 0.4 mg/dL 0.2-1.0 [facility] ([facility]) Albumin 3.0 GM/DL 3.2-5.2 [facility] ([facility]) Total Protein 7.2 GM/DL 6.4-8.2 [facility] ([facility]) Albumin/Globulin Ratio 0.7 [facility] ([facility]) ID Date Data Source [id number] 11/20/2020 01:02:00 PM EDT [facility] ([facility]) Name Value Range Interpretation Code Description Data Hannah rce(s) Supporting Document(s) CK-MB Value Mass 3.5 ng/mL [facility] ([facility]) CPK Creatine Phosphokinase 118 U/L 39-308 [facility] ([facility]) Troponin I Laboratory test result [facility] ([facility]) <content>Troponin I Reference Interval f or Siemens Deputy LOCI:</content>
<content></content>
<content>99th Percentile= 0.00-0.045 ng/ml</content>
<content></content>
<content>Risk Stratification:</content>
<content><= 0.10 ng/ml Decreased Risk for Adverse Clinical</content>
<content>Events.</content>
<content>0.10-1.50 ng/ml Increased Risk for Adverse Clinical</content>
<content>Events. Evaluation of additional</content>
<content>criterion and/or repeat testing in 2-6</content>
<content>hours is suggested to rule out myocardial</content>
<content>damage.</content>
<content>>= 1.50 ng/ml Indicative of Myocardial Injury.</content>
<content></content> MB/CK Relative Index 2.97 [facility] ([facility]) <content>DIAGNOSIS CRITERIA</content>
<content>MMB ng/ml Relative Index (RI)</content>
<content>NON-AMI < or = 5 N/A</content>
<content>TELLO ZONE > 5 < or = 4</content>
<content>AMI > 5 > 4</content>
<content></content> ID Date Data Source [id number] 11/20/2020 01:02:00 PM EDT [facility] ([facility]) Name Value Range Interpretation Code Description Data Hannah rce(s) Supporting Document(s) White Blood Count 12.8 10 4.0-10.0 [facility] ([facility]) Red Blood Count 5.24 10 4.30-6.10 [facility] ([facility]) Hemoglobin 13.5 g/dL 13.5-17.5 [facility] Hematocrit 44.2 % 42.0-52.0 [facility] Mean Corpuscular Volume 84.4 fl 80.0-96.0 [facility] ([facility]) Mean Corpuscular Hemoglobin 25.8 pg 27.0-33.0 ME D[facility] ([facility]) Mean Corpuscular HGB Conc 30.5 g/dL 32.0-36.5 MEDE NT ([facility]) Red Cell Distribution Width 15.1 % 11.5-14.5 ME [facility] ([facility]) Platelet Count, Automated 470 10 150-450 MEDE NT ([facility]) Rich % 6.4 % 2.0-8.0 [facility] [place] [facility]) Neutrophils % 72.5 % 36.0-66.0 [facility] ([facility]) Lymph % 13.9 % 24.0-44.0 [facility] [place] [facility] Eos % 5.7 % 0.0-3.0 [facility] [place] [facility] Baso % 1.1 % 0.0-1.0 [facility] [facility] Immature Granulocyte % 0.4 % 0-3.0 [facility] ([facility]) Nucleated Red Blood Cell % 0.0 % 0-0 [facility] ([facility]) Neutrophils # 9.3 10 1.5-8.5 [facility] ([facility]) Lymph # 1.8 10 1.5-5.0 [facility] [facility] Rich # 0.8 10 0.0-0.8 [facility] ([place] [facility] Baso # 0.1 10 0.0-0.2 [facility] ([place] [facility]) Eos # 0.7 10 0.0-0.5 [facility] ([place] [facility]) ID Date Data Source [id number] 10/15/2020 02:11:00 PM EDT [facility] ([facility]) Name Value Range Interpretation Code Description Data Hannah rce(s) Supporting Document(s) Thyrotropin [Units/volume] in Serum or Plasma by Detec tion limit <= 0.05 mIU/L 1.08 uIU/mL 0.36-3.74 [facility] ([facility] ) ID Date Data Source [id number] 10/15/2020 02:11:00 PM EDT [facility] ([facility]) Name Value Range Interpretation Code Description Data Hannah rce(s) Supporting Document(s) Glucose [Mass/volume] in Serum or Plasma 95 mg/dL 74-99 [facility] ([facility]) 100-125 mg/dL PRE-DIABETES/FASTING >126 mg/dL DIABETES/FASTING Urea nitrogen [Mass/volume] in Serum or Plasma 14 mg/dL 7-18 [facility] ([facility]) Creatinine 0.8 mg/dL 0.6-1.3 [facility] ([facility]) Sodium [Moles/volume] in Serum or Plasma 141 meq/L 136-145 [facility] ([facility]) Potassium [Moles/volume] in Serum or Plasma 4.7 meq/L 3.5-5.1 [facility] ([facility]) Chloride [Moles/volume] in Serum or Plasma 102 meq/L 98-107 [facility] ([facility]) Calcium [Mass/volume] in Serum or Plasma 8.6 mg/dL 8.5-10.1 [facility] ([facility]) Carbon dioxide, total [Moles/volume] in Serum or Plasma 29 meq/L 21 -32 [facility] ([facility]) Aspartate aminotransferase [Enzymatic activity/volume] in Serum or Plasma 13 U/L 15-37 [facility] ([facility] ) Total Bilirubin 0.4 mg/dL 0.2-1.0 [facility] ([facility]) Alkaline phosphatase isoenzyme [Units/volume] in Serum or Pl asma 102 mg/dL 46-116 [facility] ([facility]) Proteinase 3 Ab [Units/volume] in Serum 7.1 g/dL 6.4-8.2 [facility] ([facility]) Alanine aminotransferase [Enzymatic activity/volume] in Seru m or Plasma 21 U/L 12-78 [facility] ([facility]) Albumin [Mass/volume] in Serum or Plasma 3.2 g/dL 3.4-5.0 [facility] [facility] Glomerular filtration rate/1.73 sq M pre dicted among non-blacks [Volume Rate/Area] in Serum or Plasma by Creatinine-based formula (MDRD) Laboratory test result [facility] ([facility] ) A/G Ratio 0.82 CALC 1.00-1.90 [facility] ([facility]) Glomerular filtration rate/1.73 sq M pre dicted among blacks [Volume Rate/Area] in Serum or Plasma by Creatinine-based formula (MDRD) Laboratory test result [facility] ([place] [facility] <content>CHRONIC KIDNEY DISEASE STAGING PER NKF</content>
<content></content>
<content>STAGE I & II GFR >= 60 NORMAL TO MILDLY DECREASED</content>
<content>STAGE III GFR 30-59 MODERATELY DECREASED</content>
<content>STAGE IV GFR 15-29 SEVERELY DECREASED</content>
<content>STAGE V GFR <15 VERY LITTLE GFR LEFT</content>
<content>ESRD GFR <15 ON NAUTICAL INSTRUMENT MECHANIC</content>
<content></content> ID Date Data Source [id number] 10/15/2020 02:11:00 PM EDT [facility] Name Value Range Interpretation Code Description Data Hannah rce(s) Supporting Document(s) Hemoglobin A1c/Hemoglobin.total in Blood 8.0 % [facility] ([facility]) Lab Result Notes: Pre-Diabetes 5.7 - 6.4 % Diabetes = or > 6.5% Glucose mean value [Mass/volume] in Blood Estimated fr om glycated hemoglobin 183 mg/dL 60-[address] [facility] ([place] [facility] ID Date Data Source [id number] 10/15/2020 02:11:00 PM EDT [facility] Name Value Range Interpretation Code Description Data Hannah rce(s) Supporting Document(s) Erythrocytes [#/volume] in Blood by Automated count 4.76 x10*6/UL 4.2 0-6.30 [facility] [facility] Hemoglobin [Mass/volume] in Blood 13.1 g/dL 12.0-18.0 [facility]) Leukocytes [#/volume] in Blood by Automated count 15.0 x10*3/UL 4.1-[address] [facility] ([facility]) NOTE: CBC VERIFIED Hematocrit [Volume Fraction] of Blood by Automated count 39.7 % 3 7.0-51.0 [facility] ([facility]) MCH 27.6 pg 26.0-32.0 [facility] [facility]) MCV 83.4 fL 80.0-97.0 [facility] [facility]) Platelets [#/volume] in Blood by Automated count 466 x10*3/UL 140-440 [facility] [facility] Erythrocyte distribution width [Ratio] by Automated count 14.2 % 11.6-13.7 [facility] ([facility]) MCHC 33.0 g/dL 31.0-38.0 [facility] ([facility]) Lymph % 13.8 % 10.0-58.5 [facility] ([facility]) MPV 7.6 FL 7.8-11.0 [facility] ([facility]) Mid % 4.0 % 1.7-9.3 [facility] ([facility]) Lymph # 2.0 x10*3/UL 0.6-4.1 [facility] ([facility]) Neut % 82.2 % 37.0-92.0 [facility] ([place] [facility]) Neut # 12.3 x10*3/UL 2.0-7.8 MEDENT ([facility]) Mid # 0.7 x10*3/UL 0.1-0.6 [facility] ([facility] [place] [facility]) ID Date Data Source [id number] 10/15/2020 02:11:00 PM EDT [facility] ([facility] Name Value Range Interpretation Code Description Data Hannah rce(s) Supporting Document(s) Hemoglobin A1c/Hemoglobin.total in Blood Laboratory test result [facility] ([facility]) ID Date Data Source [id number] 09/03/2020 12:44:00 AM EST [facility] Name Value Range Interpretation Code Description Data Hannah rce(s) Supporting Document(s) SARS-CoV-2 (COVID 19) NEGATIVE - SARS-CoV-2 (COVID19) [facility] This lab was ordered by [facility] a nd reported by [facility]. ID Date Data Source [id number] 08/13/2020 06:30:00 AM EST MED[facility] ([facility] Name Value Range Interpretation Code Description Data Hannah rce(s) Supporting Document(s) ABG Partial Pressure O2 175.6 mmHg 75.0-100.0 MEDE NT ([facility]) ABG pH (Arterial) 7.394 units 7.350-7.450 [facility] ( [place] [facility] ABG Partial Pressure Co2 44.2 mmHg 35.0-45.0 MEDEN T ([facility] [place] [facility]) ABG Total Co2 27.8 meq/L 23.0-31.0 MED[facility] ([facility]) ABG Hco3 26.4 meq/L 22.0-26.0 [facility] ([place] [facility]) ABG Base Excess 1.1 MED[facility] ([facility]) ABG Standard Hco3 25.5 meq/L 22.0-26.0 MEDENT ([facility]) ABG O2 Saturation 99.5 % 95.0-99.0 MEDENT ([facility]) ID Date Data Source [id number] 08/13/2020 05:39:00 AM EST [facility]) Name Value Range Interpretation Code Description Data Hannah rce(s) Supporting Document(s) Respiratory Panel Laboratory test result [facility] ([place] [facility] This respiratory PCR panel detects Influ margi [...] - SARS-CoV-2 (COVID19) ID Date Data Source [id number] 08/13/2020 05:39:00 AM EST [facility] ([facility] Name Value Range Interpretation Code Description Data Hannah rce(s) Supporting Document(s) Glucose, Fasting 237 mg/dL 70-100 MEDENT ([facility]) Creatinine For GFR 1.00 mg/dL 0.70-1.30 MEDENT ([facility]) Blood Urea Nitrogen 14 mg/dL 7-18 MEDENT ([facility]) Sodium Level 137 meq/L 136-145 [facility] ([facility] [place] [facility]) Glomerular Filtration Rate Laboratory test result [facility] ([place] [facility]) <content>Units are mL/min/1.73 m2</content>
<content></content>
<content>Chronic Kidney Disease Staging per NKF:</content>
<content></content>
<content>Stage I & II GFR >=60 Normal to Mildly Decreased</content>
<content>Stage III GFR 30- 59 Moderately Decreased</content>
<content>Stage IV GFR 15-29 Severely Decreased</content>
<content>Stage V GFR <15 Very Little GFR Left</content>
<content>ESRD GFR <15 on NAUTICAL INSTRUMENT MECHANIC</content>
<content></content> Carbon Dioxide Level 31 meq/L 21-32 MEDENT ([facility]) Potassium Serum 4.5 meq/L 3.5-5.1 MEDENT ([facility]) Chloride Level 101 meq/L 98-107 MED[facility] ([facility]) Anion Gap 5 meq/L 8-16 [facility] ([place] [facility]) Calcium Level 9.0 mg/dL 8.8-10.2 [facility] ([facility]) ID Date Data Source [id number] 08/13/2020 05:39:00 AM EST MED[facility] ([facility]) Name Value Range Interpretation Code Description Data Hannah rce(s) Supporting Document(s) Ast/Sgot 16 U/L 7-37 MED[facility] ([place] [facility]) Alkaline Phosphatase 118 U/L 45-117 MED[facility] ([facility]) Alt/SGPT 27 U/L 12-78 MED[facility] ([place] [facility]) Bilirubin,Total 0.2 mg/dL 0.2-1.0 MED[facility] ([facility]) Bilirubin,Direct 0.1 mg/dL 0.0-0.2 MED[facility] ([facility]) Total Protein 6.9 GM/DL 6.4-8.2 MED[facility] ([facility]) Albumin 2.9 GM/DL 3.2-5.2 [facility] ([place] [facility]) Albumin/Globulin Ratio 0.7 [facility] ([facility] [place] [facility]) ID Date Data Source [id number] 08/13/2020 05:39:00 AM EST MEDENT ([facility]) Name Value Range Interpretation Code Description Data Hannah rce(s) Supporting Document(s) Red Blood Count 5.00 10 4.30-6.10 MEDENT ([facility]) White Blood Count 15.5 10 4.0-10.0 MED[facility] ([facility]) Hematocrit 44.0 % 42.0-52.0 [facility] ([place] [facility]) Mean Corpuscular Volume 88.0 fl 80.0-96.0 MEDENT ([place] [facility]) Hemoglobin 13.8 g/dL 13.5-17.5 [facility] Mean Corpuscular Hemoglobin 27.6 pg 27.0-33.0 [place] ([facility] [place] [facility]) Mean Corpuscular HGB Conc 31.4 g/dL 32.0-36.5 MEDE NT ([place] [facility]) Red Cell Distribution Width 13.6 % 11.5-14.5 [place] ([place] [facility]) Neutrophils % 77.5 % 36.0-66.0 MEDENT ([facility]) Platelet Count, Automated 464 10 150-450 MEDE NT ([place] [facility]) Rich % 7.0 % 0.0-5.0 [facility] ([place] [facility]) Lymph % 10.4 % 24.0-44.0 [facility] ([place] [facility]) Immature Granulocyte % 1.0 % 0-3.0 MED[facility] ([place] [facility]) Eos % 3.6 % 0.0-3.0 [facility] ([place] [facility]) Baso % 0.5 % 0.0-1.0 [facility] ([place] [facility]) Neutrophils # 12.0 10 1.5-8.5 MEDENT ([facility]) Nucleated Red Blood Cell % 0.0 % 0-0 MED ENT ([place] [facility]) Lymph # 1.6 10 1.5-5.0 [facility] ([place] [facility]) Rich # 1.1 10 0.0-0.8 [facility] ([place] [facility]) Eos # 0.6 10 0.0-0.5 [facility] ([place] [facility]) Baso # 0.1 10 0.0-0.2 [facility] ([place] [facility]) ID Date Data Source [id number] 08/13/2020 05:39:00 AM EST [facility] Name Value Range Interpretation Code Description Data Hannah rce(s) Supporting Document(s) SARS-CoV-2 (COVID 19) NEGATIVE - SARS-CoV-2 (COVID19) [facility] This lab was ordered by [facility] a nd reported by [facility]. ID Date Data Source [id number] 06/25/2020 08:35:00 AM EST MEDENT ([facility], ) Name Value Range Interpretation Code Description Data Hannah rce(s) Supporting Document(s) FVC-Pre 2.03 L MEDENT ([facility]) PDFReport Laboratory test result MEDENT ([facility], ) FVC-Pred 4.61 L MEDENT ([facility]) Fev1-Pred 3.44 L MEDENT ([facility]) FVC-LLN 3.67 L MED[facility] ([facility]) FVC-%Pred-Pre 44 L MEDENT ([facility]) Fev1-Pre 0.86 L MEDENT ([facility]) Fev1-%Pred-Pre 25 L MEDENT ([facility]) Fev1-LLN 2.65 L MEDENT ([facility]) Fev6-Pred 4.37 L MED[facility] ([facility]) Fev6-%Pred-Pre 45 L MEDENT ([facility]) Fev6-Pre 2.01 L MEDENT ([facility]) Yxm3qmu-Eywf 75 % MEDENT ([facility]) Fev6-LLN 3.46 L MEDENT ([facility]) Jnl3zff-%Pred-Pre 56 % MEDENT ([facility]) Tep4qab-Vmb 42 % MED[facility] ([facility]) Svg5oua-USL 65 % MEDENT ([facility]) Mlp3xhr-Poil 95 % MED[facility] ([facility]) Asm9fac-Cwf 99 % MED[facility] ([facility]) FEFMax-Pred 8.82 L/E/sec MEDENT ([facility]) Zho1zau-%Pred-Pre 103 % MED[facility] ([facility]) FEFMax-Pre 3.05 L/E/sec MEDENT ([facility]) FEFMax-LLN 6.50 L/E/sec MED[facility] ([facility]) Qvz1228-Umfx 2.72 L/E/sec MEDENT ([facility]) FEFMax-%Pred-Pre 34 L/E/sec MED[facility] ([facility]) Tsc5927-Ygo 0.36 L/E/sec MEDENT ([facility]) Kiv5051-CJJ 1.12 L/E/sec MEDENT ([facility]) Jxm7740-%Pred-Pre 13 L/E/sec MEDENT ([facility]) Iep9yua0-Txw 43 % MED[facility] ([facility]) ExpTime-Pre 6.44 sec MEDENT ([facility]) Ptz5ztu4-Usfl 78 % MEDENT ([facility]) Ciz5lwf1-%Pred-Pre 54 % MEDENT ([facility]) Hib9tff7-LQX 69 % [facility] ([facility]) ID Date Data Source [id number] 06/22/2020 11:45:00 AM EST [facility] Name Value Range Interpretation Code Description Data Hannah rce(s) Supporting Document(s) SARS coronavirus 2 RNA [facility] This lab was ordered by [facility] and reported by [facility]. ID Date Data Source [id number] 06/12/2020 09:28:00 AM EST MEDENT ([facility]) Name Value Range Interpretation Code Description Data Hannah rce(s) Supporting Document(s) Hemoglobin A1c/Hemoglobin.total in Blood 8.5 % [facility] [facility] Lab Result Notes: Pre-Diabetes 5.7 - 6.4 % Diabetes = or > 6.5% Glucose mean value [Mass/volume] in Blood Estimated fr om glycated hemoglobin 197 mg/dL 60-110 MED[facility] ([facility] [place] [facility] ) ID Date Data Source [id number] 06/12/2020 09:28:00 AM EST MEDENT ([facility]) Name Value Range Interpretation Code Description Data Hannah rce(s) Supporting Document(s) Glucose [Mass/volume] in Serum or Plasma 221 mg/dL 74-99 MED[facility] ([place] [facility]) 100-125 mg/dL PRE-DIABETES/FASTING >126 mg/dL DIABETES/FASTING Creatinine 1.1 mg/dL 0.6-1.3 MEDENT ([facility]) Urea nitrogen [Mass/volume] in Serum or Plasma 22 mg/dL 7-18 MED[facility] ([place] [facility]) Potassium [Moles/volume] in Serum or Plasma 4.7 meq/L 3.5-5.1 MED[facility] ([place] [facility]) Sodium [Moles/volume] in Serum or Plasma 140 meq/L 136-145 MED[facility] ([place] [facility]) Chloride [Moles/volume] in Serum or Plasma 102 meq/L 98-107 MED[facility] ([place] [facility]) Calcium [Mass/volume] in Serum or Plasma 9.2 mg/dL 8.5-10.1 [facility] ([place] [facility]) Carbon dioxide, total [Moles/volume] in Serum or Plasma 30 meq/L 21 -32 MED[facility] ([place] [facility]) Alkaline phosphatase isoenzyme [Units/volume] in Serum or Pl asma 120 mg/dL 46-116 MED[facility] ([place] [facility]) Total Bilirubin 0.5 mg/dL 0.2-1.0 MEDENT ([facility]) Aspartate aminotransferase [Enzymatic activity/volume] in Serum or Plasma 13 U/L 15-37 MED[facility] ([place] [facility] ) Alanine aminotransferase [Enzymatic activity/volume] in Seru m or Plasma 26 U/L 12-78 MED[facility] ([place] [facility]) Proteinase 3 Ab [Units/volume] in Serum 7.0 g/dL 6.4-8.2 [facility] [facility]) Albumin [Mass/volume] in Serum or Plasma 3.6 g/dL 3.4-5.[address] [facility] ([place] [facility]) Glomerular filtration rate/1.73 sq M pre dicted among non-blacks [Volume Rate/Area] in Serum or Plasma by Creatinine-based formula (MDRD) Laboratory test result MED[facility] ([place] [facility] ) Glomerular filtration rate/1.73 sq M pre dicted among blacks [Volume Rate/Area] in Serum or Plasma by Creatinine-based formula (MDRD) Laboratory test result [facility] ([place] [facility]) <content>CHRONIC KIDNEY DISEASE STAGING PER NKF</content>
<content></content>
<content>STAGE I & II GFR >= 60 NORMAL TO MILDLY DECREASED</content>
<content>STAGE III GFR 30-59 MODERATELY DECREASED</content>
<content>STAGE IV GFR 15-29 SEVERELY DECREASED</content>
<content>STAGE V GFR <15 VERY LITTLE GFR LEFT</content>
<content>ESRD GFR <15 ON NAUTICAL INSTRUMENT MECHANIC</content>
<content></content> A/G Ratio 1.06 CALC 1.00-1.90 [facility] ([place] [facility]) ID Date Data Source [id number] 06/12/2020 09:28:00 AM EST [facility] ([facility]) Name Value Range Interpretation Code Description Data Hannah rce(s) Supporting Document(s) Hemoglobin A1c/Hemoglobin.total in Blood Laboratory test result [facility] ([place] [facility] ID Date Data Source [id number] 04/30/2020 12:03:00 PM EDT [facility] ([facility]) Name Value Range Interpretation Code Description Data Hannah rce(s) Supporting Document(s) Thyrotropin [Units/volume] in Serum or Plasma by Detec tion limit <= 0.05 mIU/L 1.240 uIU/ML 0.358-3.740 [facility] ([place] [facility] ) Triiodothyronine (T3) [Mass/volume] in Serum or Plasma 97.8 ng/dL 60.0-181.0 MED[facility] ([place] [facility]) Thyroxine (T4) free [Mass/volume] in Serum or Plasma 1.09 ng/dL 0.76- 1.[address] [facility] ([place] [facility]) Thyroperoxidase Ab [Units/volume] in Serum or Plasma 31.2 U/ML [facility] ([place] [facility]) Thyroglobulin Ab [Units/volume] in Serum or Plasma Laboratory test re sult [facility] ([place] [facility]) ID Date Data Source [id number] 04/30/2020 12:03:00 PM EDT [facility] ([facility]) Name Value Range Interpretation Code Description Data Hannah rce(s) Supporting Document(s) Blood Urea Nitrogen 20 mg/dL 7-18 MEDENT ([facility]) Glucose, Fasting 188 mg/dL 70-100 [facility] ([facility]) Creatinine For GFR 1.02 mg/dL 0.70-1.30 [facility] ([facility]) Potassium Serum 4.7 meq/L 3.5-5.1 [facility] ([facility]) Sodium Level 138 meq/L 136-145 [facility] ([place] [facility]) Glomerular Filtration Rate Laboratory test result [facility] ([place] [facility] <content>Units are mL/min/1.73 m2</content>
<content></content>
<content>Chronic Kidney Disease Staging per NKF:</content>
<content></content>
<content>Stage I & II GFR >=60 Normal to Mildly Decreased</content>
<content>Stage III GFR 30- 59 Moderately Decreased</content>
<content>Stage IV GFR 15-29 Severely Decreased</content>
<content>Stage V GFR <15 Very Little GFR Left</content>
<content>ESRD GFR <15 on NAUTICAL INSTRUMENT MECHANIC</content>
<content></content> Anion Gap 7 meq/L 8-16 [facility] ([place] [facility]) Carbon Dioxide Level 25 meq/L 21-32 [facility] ([facility]) Chloride Level 106 meq/L 98-107 [facility] ([facility]) Ast/Sgot 20 U/L 7-37 [facility] ([place] [facility] Calcium Level 9.5 mg/dL 8.8-10.2 [facility] ([facility]) Alt/SGPT 29 U/L 12-78 [facility] ([place] [facility] Total Protein 7.8 GM/DL 6.4-8.2 [facility] ([facility]) Alkaline Phosphatase 117 U/L 45-117 [facility] ([facility]) Bilirubin,Total 0.7 mg/dL 0.2-1.0 [facility] ([facility]) Albumin/Globulin Ratio 1.1 [facility] ([place] [facility]) Albumin 4.0 GM/DL 3.2-5.2 [facility] ([place] [facility]) ID Date Data Source [id number] 04/30/2020 12:03:00 PM EDT MEDENT ([facility]) Name Value Range Interpretation Code Description Data Hannah rce(s) Supporting Document(s) Red Blood Count 5.45 10 4.30-6.10 MED[facility] ([facility]) Hemoglobin 16.1 g/dL 13.5-17.5 MED[facility] ([facility]) White Blood Count 11.9 10 4.0-10.0 [facility] ([facility]) Hematocrit 48.8 % 42.0-52.0 MED[facility] ([facility]) Mean Corpuscular Volume 89.5 fl 80.0-96.0 [facility] ([place] [facility]) Mean Corpuscular Hemoglobin 29.5 pg 27.0-33.0 [place] [facility] ([place] [facility]) Platelet Count, Automated 360 10 150-450 MEDE NT ([place] [facility]) Mean Corpuscular HGB Conc 33.0 g/dL 32.0-36.5 MEDE NT ([place] [facility]) Red Cell Distribution Width 13.2 % 11.5-14.5 [place] [facility]ENT ([place] [facility]) Neutrophils % 75.8 % 36.0-66.0 [facility] [facility]) Lymph % 14.3 % 24.0-44.0 [facility] ([place] [facility]) Rich % 6.8 % 0.0-5.0 [facility] ([place] [facility]) Immature Granulocyte % 0.4 % 0-3.0 [facility] ([place] [facility]) Baso % 0.8 % 0.0-1.0 [facility] ([place] [facility]) Eos % 1.9 % 0.0-3.0 [facility] ([place] [facility]) Lymph # 1.7 10 1.5-5.0 [facility] ([place] [facility]) Neutrophils # 9.0 10 1.5-8.5 [facility] [facility] Nucleated Red Blood Cell % 0.0 % 0-0 MED ENT ([place] [facility]) Baso # 0.1 10 0.0-0.2 [facility] ([place] [facility]) Rich # 0.8 10 0.0-0.8 [facility] ([place] [facility]) Eos # 0.2 10 0.0-0.5 [facility] ([place] [facility]) Procedure Social History Code Duration Value Status Description Data Source(s ) Smoking 04/21/2021 12:00:00 AM EDT Patient is a former smoker completed Patient is a former smoker MEDENT ([facility]) Smoking 11/28/2020 12:00:00 AM EDT Patient is a former smoker completed Patient is a former smoker [facility] ([facility]) Vital Signs ID Date Data Source UNK Name Value Range Interpretation Code Description Data Source(s) Systolic blood pressure 104 mm[Hg] 104 mm[Hg] M EDENT ([facility]) Diastolic blood pressure 70 mm[Hg] 70 mm[Hg] [facility]) Heart rate 106 /min 106 /min [facility] ([facility]) Oxygen saturation in Arterial blood by Pulse oximetry 94 % 94 % [facility] ([facility]) Body height 70 [in_i] 70 [in_i] [facility]) 5'10" Body weight 260.00 [lb_av] 260.00 [lb_av] MEDEN T ([facility]) Body mass index (BMI) [Ratio] 37.3 kg/m2 37.3 k g/m2 [facility] ([facility]) [place] body weight 166 [lb_av] 166 [lb_av] MEDEN T ([facility]) Body weight 117.936 kg 117.[address] [facility] ([facility]) Body surface area Derived from formula 2.33 m2 2.[address] [facility] ([facility]) Heart rate 103 /min 103 /min [facility] ([facility]) Oxygen saturation in Arterial blood by Pulse oximetry 9495 % 9495 % [facility] ([place] [facility]) Body mass index (BMI) [Ratio] 52.5 kg/m2 52.5 k g/m2 [facility] ([place] [facility]) Body height 59 [in_i] 59 [in_i] [facility] ([facility]) 4'11" Body weight 260.00 [lb_av] 260.00 [lb_av] MEDEN T ([facility] [place] [facility]) Systolic blood pressure 104 mm[Hg] 104 mm[Hg] [facility] ([place] [facility]) Diastolic blood pressure 56 mm[Hg] 56 mm[Hg] [facility] ([place] [facility]) Body height 70 [in_i] 70 [in_i] [facility]) 5'10" Systolic blood pressure--sitting 112 mm[Hg] 112 mm[Hg] [facility] ([facility]) Ra, large cuff Diastolic blood pressure--sitting 72 mm[Hg] 72 mm[Hg] [facility] ([facility]) Ra, large cuff Heart rate 91 /min 91 /min [facility] ([facility]) Body height 59 [in_i] 59 [in_i] [facility] ([facility]) 4'11" Systolic blood pressure 124 mm[Hg] 124 mm[Hg] M [facility] ([place] [facility]) Body weight 252.00 [lb_av] 252.00 [lb_av] MEDEN T ([place] [facility]) stated Oxygen saturation in Arterial blood by Pulse oximetry 97 % 97 % [facility] ([place] [facility]) 2 liters Body mass index (BMI) [Ratio] 50.9 kg/m2 50.9 k g/m2 [facility] ([place] [facility]) Diastolic blood pressure 70 mm[Hg] 70 mm[Hg] [facility] ([place] [facility]) Oxygen saturation in Arterial blood by Pulse oximetry 90 % 90 % [facility] ([place] [facility]) 1 liters Body mass index (BMI) [Ratio] 50.5 kg/m2 50.5 k g/m2 [facility] ([place] [facility]) Systolic blood pressure 112 mm[Hg] 112 mm[Hg] [facility] ([place] [facility]) Diastolic blood pressure 68 mm[Hg] 68 mm[Hg] [facility] ([place] [facility]) Heart rate 92 /min 92 /min [facility] ([facility]) Body height 59 [in_i] 59 [in_i] [facility] ([facility]) 4'11" Body weight 250.00 [lb_av] 250.00 [lb_av] MEDEN T ([place] [facility]) Heart rate 106 /min 106 /min [facility] ([facility]) Systolic blood pressure 120 mm[Hg] 120 mm[Hg] M [facility] ([place] [facility]) Body height 59 [in_i] 59 [in_i] [facility] ([facility]) 4'11" Diastolic blood pressure 70 mm[Hg] 70 mm[Hg] [facility] ([place] [facility]) Oxygen saturation in Arterial blood by Pulse oximetry 93 % 93 % [facility] ([place] [facility]) With O2 @ 1L Body mass index (BMI) [Ratio] 50.3 kg/m2 50.3 k g/m2 [facility] ([place] [facility]) Body weight 249.00 [lb_av] 249.00 [lb_av] MEDEN T ([facility] [place] [facility]) per pt Systolic blood pressure 100 mm[Hg] 100 mm[Hg] [facility] [facility] Diastolic blood pressure 62 mm[Hg] 62 mm[Hg] [facility] ([place] [facility]) Heart rate 76 /min 76 /min [facility] ([facility]) Body height 59 [in_i] 59 [in_i] [facility] ([facility]) 4'11" Body weight 249.00 [lb_av] 249.00 [lb_av] MEDEN T ([facility] [place] [facility]) Body mass index (BMI) [Ratio] 50.3 kg/m2 50.3 k g/m2 [facility] ([place] [facility]) Oxygen saturation in Arterial blood by Pulse oximetry 962 % 962 % [facility]) Body height 70 [in_i] 70 [in_i] [facility] ([facility]) 5'10" Body weight 248.00 [lb_av] 248.00 [lb_av] MEDEN T ([facility]) per pt Body mass index (BMI) [Ratio] 35.6 kg/m2 35.6 k g/m2 [facility] ([facility]) [place] body weight 166 [lb_av] 166 [lb_av] MEDEN T ([facility]) Body weight 112.493 kg 112.[address] [facility] ([facility]) Body surface area Derived from formula 2.29 m2 2.[address] [facility] ([facility]) Body height 70 [in_i] 70 [in_i] [facility] ([facility]) 5'10" Body weight 248.00 [lb_av] 248.00 [lb_av] MEDEN T ([facility]) per pt Systolic blood pressure 102 mm[Hg] 102 mm[Hg] EDENT ([facility]) Diastolic blood pressure 70 mm[Hg] 70 mm[Hg] [facility] ([facility]) Heart rate 87 /min 87 /min [facility] [facility] ([facility]) Oxygen saturation in Arterial blood by Pulse oximetry 962 % 962 % [facility] ([facility]) Body mass index (BMI) [Ratio] 35.6 kg/m2 35.6 k g/m2 [facility] ([facility]) [place] body weight 166 [lb_av] 166 [lb_av] MED[facility] T ([facility]) Body weight 112.493 kg 112.[address] [facility] ([facility]) Body surface area Derived from formula 2.29 m2 2.[address] [facility] ([facility]) Body weight 249.00 [lb_av] 249.00 [lb_av] [facility] T ([facility]) Diastolic blood pressure 72 mm[Hg] 72 mm[Hg] [facility] Systolic blood pressure 128 mm[Hg] 128 mm[Hg] [facility] Heart rate 98 /min 98 /min [facility] Body height 59 [in_i] 59 [in_i] [facility] ([facility]) 4'11" Oxygen saturation in Arterial blood by Pulse oximetry 93 % 93 % [facility] ([facility]) 3 liters Body mass index (BMI) [Ratio] 50.3 kg/m2 50.3 k g/m2 [facility] ([facility]) Body mass index (BMI) [Ratio] 36.3 kg/m2 36.3 k g/m2 [facility] ([facility]) [place] body weight 166 [lb_av] 166 [lb_av] [facility] T ([facility]) Body weight 114.761 kg 114.[address] [facility] ([facility]) Body surface area Derived from formula 2.31 m2 2.[address] [facility] ([facility]) Oxygen saturation in Arterial blood by Pulse oximetry 972 % 972 % [facility] ([facility]) 95 2L Body height 70 [in_i] 70 [in_i] [facility] ([facility]) 5'10" Body weight 253.00 [lb_av] 253.00 [lb_av] [facility] 240-stated by patient Systolic blood pressure 118 mm[Hg] 118 mm[Hg] [facility] ([facility]) Diastolic blood pressure 80 mm[Hg] 80 mm[Hg] [facility] ([facility]) Heart rate 80 /min 80 /min [facility] ([facility]) Oxygen saturation in Arterial blood by Pulse oximetry 972 % 972 % [facility] ([facility]) 95 2L Body height 70 [in_i] 70 [in_i] [facility] ([facility]) 5'10" Body weight 253.00 [lb_av] 253.00 [lb_av] [facility] T ([facility]) 240-stated by patient Body mass index (BMI) [Ratio] 36.3 kg/m2 36.3 k g/m2 [facility] ([facility]) [place] body weight 166 [lb_av] 166 [lb_av] [facility] T ([facility]) Body weight 114.761 kg 114.[address] [facility] ([facility]) Body surface area Derived from formula 2.31 m2 2.[address] [facility] ([facility]) Heart rate 98 /min 98 /min [facility] ([facility]) Body weight 244.00 [lb_av] 244.00 [lb_av] [facility] T ([facility]) Systolic blood pressure 132 mm[Hg] 132 mm[Hg] M [facility] ([facility]) Diastolic blood pressure 76 mm[Hg] 76 mm[Hg] [facility] Oxygen saturation in Arterial blood by Pulse oximetry 98 % 98 % [facility] 2liter Body height 69.0 [in_i] 69.0 [in_i] [facility] ([facility]) 5'9" Oxygen saturation in Arterial blood by Pulse oximetry 91 % 91 % [facility] Oxygen saturation in Arterial blood by Pulse oximetry --post exerci se 87 % 87 % [facility] Body mass index (BMI) [Ratio] 37.1 kg/m2 37.1 k g/m2 [facility] ([facility]) Body weight 251.00 [lb_av] 251.00 [lb_av] [facility] ([facility]) Heart rate 88 /min 88 /min [facility] Diastolic blood pressure 78 mm[Hg] 78 mm[Hg] [facility] ([facility]) Systolic blood pressure 130 mm[Hg] 130 mm[Hg] M [facility] ([facility]) Systolic blood pressure 142 mm[Hg] 142 mm[Hg] M [facility] ([facility]) Body weight 115.668 kg 115.[address] [facility] ([facility]) Body surface area Derived from formula 2.31 m2 2.[address] [facility] ([facility]) Diastolic blood pressure 90 mm[Hg] 90 mm[Hg] [facility] ([facility]) Heart rate 93 /min 93 /min [facility] ([facility]) Oxygen saturation in Arterial blood by Pulse oximetry 95 % 95 % [facility] ([facility]) Body height 70 [in_i] 70 [in_i] [facility] ([facility]) 5'10" Body weight 255.00 [lb_av] 255.00 [lb_av] [facility] T ([facility]) Body mass index (BMI) [Ratio] 36.6 kg/m2 36.6 k g/m2 [facility] ([facility]) [place] body weight 166 [lb_av] 166 [lb_av] [facility] ([facility]) Heart rate 88 /min 88 /min [facility] ([facility]) Systolic blood pressure 136 mm[Hg] 136 mm[Hg] M [facility] ([facility]) Body height 69.0 [in_i] 69.0 [in_i] [facility] 5'9" Diastolic blood pressure 84 mm[Hg] 84 mm[Hg] [facility] ([facility]) Body weight 257.00 [lb_av] 257.00 [lb_av] [facility] T ([facility]) Oxygen saturation in Arterial blood by Pulse oximetry 90 % 90 % [facility] ([facility]) Body mass index (BMI) [Ratio] 37.9 kg/m2 37.9 k g/m2 [facility] ([facility]) Systolic blood pressure 139 mm[Hg] 139 mm[Hg] [facility] ([facility]) Diastolic blood pressure 60 mm[Hg] 60 mm[Hg] [facility] ([facility]) Body height 70 [in_i] 70 [in_i] [facility] ([facility]) 5'10" Body weight 250.00 [lb_av] 250.00 [lb_av] [facility] Body mass index (BMI) [Ratio] 35.9 kg/m2 35.9 k g/m2 [facility] ([facility]) [place] body weight 166 [lb_av] 166 [lb_av] [facility] Body weight 113.400 kg 113.[address] [facility] ([facility]) Body surface area Derived from formula 2.29 m2 2.[address] [facility] ([facility])
[2021-06-21] MEDS ORDERED: cefTRIAXone SOD 2 GM in D5W MINI-BAG PLUS 50 ML IV ONE (12:00)
[2021-06-21] MEDS ORDERED: DULO30CA9 PO (12:49)
[2021-06-21] MEDS ORDERED: TORS20TA2 PO ×2 (12:49)
[2021-06-21 12:50] LABS: INR 1.07; PROTHROMBIN TIME 14.4 SECONDS (12.7-14.5)
[2021-06-21] MEDS ORDERED: HOME MED LIST COMPLETE! XX SCH (12:55)
[2021-06-21] MEDS ORDERED: VANCOMYCIN HCL 1,000 MG, VIAL MATE ADAPTER 1 EACH in NS 250 ML IV ONE (13:00)
[2021-06-21] MEDS: LEVEMIR (INSULIN DETEMIR) 1 UNITS/0.01ML SC SCH ×2 (13:12→20:44)
[2021-06-21] MEDS: MORPHINE 2 MG/ML 1ML VIAL (J2270) IV PRN ×2 (15:32→20:44)
--- NOTE | 2021-06-21 16:37 | ECGEPIP ---
[facility] - ED Test Date: 2021-06-21 Pat Name: GENIE BUCKNER Department: Room: [facility] Gender: Male [employer] Maker: CASSANDRA : 1955 Requested By: Jeanine Pastor Order Number: [id number] Reading MD: Jeanine Pastor Measurements Intervals [place] Rate: 141 P: 65 IN: 140 QRS: 130 QRSD: 76 T: 31 QT: 270 QTc: 413 Interpretive Statements Sinus tachycardia Left posterior fascicular block NSTTW abnormalities increased rate 03/24/21 Electronically Signed on 06-21-2021 16:36:48 EST by Jeanine Pastor
[2021-06-21 17:00] VITALS: BP 130/72
[2021-06-21 20:00] VITALS: BP 135/68
[2021-06-21] MEDS: VANCOMYCIN HCL 1,000 MG, VIAL MATE ADAPTER 1 EACH in NS 250 ML IV SCH (20:43)
[2021-06-21] MEDS: HEPARIN SOD (PORCINE) 5000UNITS/ML 1ML VIAL/SYRINGE SC SCH (20:44)
[2021-06-21] MEDS ORDERED: PERCOCET 5MG/325MG TAB PO PRN (22:30)
[2021-06-21] MEDS ORDERED: traZODone 50 MG TAB PO PRN (22:40)
[2021-06-21] MEDS ORDERED: GLUCAGON INJ 1MG VIAL SC PRN (22:40)
[2021-06-21] MEDS ORDERED: GLUCOSE 4GM CHEW TABLET PO PRN (22:40)
[2021-06-21] MEDS ORDERED: ALBUTEROL 90 MCG/ACT 8GM HFA INHALER INH PRN (22:40)
[2021-06-21] MEDS ORDERED: DEXTROSE 50% 50 ML SYRINGE IV PRN (22:40)
[2021-06-21] MEDS ORDERED: **SFRHE** EPINEPHrine (EPIPEN) 0.3MG/0.3ML SYRINGE INJ PRN (22:40)
[2021-06-21] MEDS ORDERED: KETOCONAZOLE 2% CREAM TOP PRN (22:40)
[2021-06-21] MEDS: PERCOCET 5MG/325MG TAB PO PRN (23:04)
[2021-06-21] MEDS: SYMBICORT 80/4.5MCG INHALER 6GM INH SCH (23:15)
[2021-06-21] MEDS: ASPIRIN 81MG ENTERIC TABLET PO SCH (23:20)
[2021-06-21] MEDS: TAMSULOSIN 0.4 MG CAP PO SCH (23:20)
[2021-06-21] MEDS: METOPROLOL TART 25 MG TABLET PO SCH (23:21)
[2021-06-21] MEDS: ATORVASTATIN 10 MG TAB PO SCH (23:21)
[2021-06-22] VITALS: BP 129/66
[2021-06-22] MEDS: LEVALBUTEROL 1.25 MG/0.5 ML CONCENTRATE NEB INH PRN ×2 (03:16→11:49)
[2021-06-22] MEDS: VANCOMYCIN HCL 1,000 MG, VIAL MATE ADAPTER 1 EACH in NS 250 ML IV SCH ×3 (03:22→20:49)
[2021-06-22 04:00] VITALS: BP 124/86
[2021-06-22] MEDS: PERCOCET 5MG/325MG TAB PO PRN ×3 (06:02→20:53)
[2021-06-22 06:34] LABS: HEMATOCRIT 35.7 % (42.0-52.0); HEMOGLOBIN 10.5 g/dl (13.5-17.5); MEAN CORPUSCULAR HEMOGLOBIN 24.9 pg (27.0-33.0); MEAN CORPUSCULAR HGB CONC 29.4 g/dl (32.0-36.5); MEAN CORPUSCULAR VOLUME 84.6 fl (80.0-96.0); PLATELET COUNT, AUTOMATED 450 10^3/uL (150-450); RED BLOOD COUNT 4.22 10^6/uL (4.30-6.10); WHITE BLOOD COUNT 15.4 10^3/uL (4.0-10.0)
[2021-06-22 06:48] LABS: ALBUMIN 2.6 GM/DL (3.2-5.2); ALT/SGPT 13 U/L (12-78); BILIRUBIN,TOTAL 0.3 MG/DL (0.2-1.0); BLOOD UREA NITROGEN 13 MG/DL (7-18); CALCIUM LEVEL 8.8 MG/DL (8.8-10.2); CARBON DIOXIDE LEVEL 37 MEQ/L (21-32); CHLORIDE LEVEL 103 MEQ/L (98-107); CREATININE FOR GFR 0.81 MG/DL (0.70-1.30); GLOMERULAR FILTRATION RATE > 60.0 (>49); GLUCOSE, FASTING 156 MG/DL (70-100); POTASSIUM SERUM 4.2 MEQ/L (3.5-5.1); SODIUM LEVEL 143 MEQ/L (136-145); TOTAL PROTEIN 6.2 GM/DL (6.4-8.2)
[2021-06-22 08:24] VITALS: BP 131/79
[2021-06-22] MEDS: SYMBICORT 80/4.5MCG INHALER 6GM INH SCH ×2 (08:30→20:32)
[2021-06-22] MEDS: DULoxetine 30MG CAPSULE (CYMBALTA) PO SCH (08:49)
[2021-06-22] MEDS: TAMSULOSIN 0.4 MG CAP PO SCH ×2 (08:49→20:53)
[2021-06-22] MEDS: METOPROLOL TART 25 MG TABLET PO SCH ×2 (08:49→20:54)
[2021-06-22] MEDS: HumaLOG INSULIN (NovoLOG) PER UNIT SC SCH ×4 (08:50→20:50)
[2021-06-22] MEDS: LEVEMIR (INSULIN DETEMIR) 1 UNITS/0.01ML SC SCH ×2 (08:50→20:50)
[2021-06-22] MEDS: HEPARIN SOD (PORCINE) 5000UNITS/ML 1ML VIAL/SYRINGE SC SCH ×2 (08:50→20:50)
[2021-06-22] MEDS: traMADol 50 MG TAB PO PRN ×2 (10:57→18:27)
[2021-06-22] MEDS ORDERED: BACITRACIN OINTMENT 30GM TUBE TOP PRN (11:20)
[2021-06-22 11:43] VITALS: BP 109/62
--- NOTE | 2021-06-22 12:05 | IPNPDOC ---
Text Note Date of Service The patient was seen on 06/22/21. NOTE Subjective: Patient stated that he feels better today. In the morning he dev eloped some bleeding from superficial wounds of both legs. Objective: GENERAL APPEARANCE: NAD HEENT: no scleral icterus, no JVD, EOMI CARDIOVASCULAR: S1S2 LUNGS: Diminished lung sounds bilaterally ABDOMEN: soft & not tender w palpation MUSCULOSKELETAL: no cyanosis, both distal legs multiple superficial wounds, erythematous INTEGUMENT: no generalized pallor NEUROLOGICAL: cranial nerve function from 2-12 intact, follows commands, speech not dysarthric Assessment/Plan Patient is 65 years old male with past medical history of COPD with chronic hypoxic respiratory failure on 2 L of oxygen, Obesity, Untreated ASH, diabetes, hypertension, diastolic CHF, moderate pulmonary hypertension, mild to moderate Aortic stenosis, HTN, HLD, anxiety, Peripheral neuropathy, Essential tremors, S evere neuralgic pain around the ears and the face/Trigeminal neuralgia, Loss of hearing on the right, Kidney stones, PTSD, Depression presented to the ED with Increasing SOB and legs swelling and pain for past few weeks. Patient stated that he has been having swollen legs for past few weeks associated with erythema and superficial wounds. Patient stated that his legs pain became progressively worse and he cannot tolerated. Also patient stated that he has increased shortness of breath and orthopnea. In ER patient was found to have leukocytosis of 25.6, hemoglobin 12.2, lactic acid 3.1, negative troponin. Doppler ultrasound negative for DVT. Chest x-ray negative for acute pulmonary infil trates Problems (1) Sepsis Patient developed tachycardia with elevated white blood count most likely secondary to sepsis of lower extremities bilaterally Patient was grossly volume overloaded Continue ceftriaxone IV, vancomycin IV day 1 Blood culture negative UA pending (2) Cellulitis Bilateral cellulitis superimposed with +3 pitting edema Improved today ceftriaxone IV and vancomycin IV Appreciate/agree with wound care consult (3) diastolic CHF exacerbation There is concern for acute CHF exacerbation Surprisingly BNP is not elevated, normal value could be secondary to obesity echo ordered I's and O's Fluid overload, unspecified Most likely secondary to acute CHF exacerbation Await echo Diabetes mellitus Insulin sliding scale Detemir twice daily (6) Obesity (BMI 30-39.9) Complicated care COPD (chronic obstructive pulmonary disease) Not in acute exacerbation Continue inhalers DVT prophylaxis with heparin 5000 bid VS,Fishbone, I+O VS, Fishbone, I+O Laboratory Tests 06/22/21 06:05 Vital Signs Date Time Temp Pulse Resp B/P (MAP) Pulse Ox O2 Delivery O2 Flow Rate FiO2 06/22/21 11:43 97.9 86 22 109/62 (78) 95 Nasal Cannula 3.0 I&O- Last 24 Hours up to 6 AM 06/22/21 06:00 Intake Total 1220 ml Output Total 420 ml Balance 800 ml NATHALY CAZARES DO Jun 22, 2021 12:05
[2021-06-22 12:44] LABS: ALBUMIN 2.7 GM/DL (3.2-5.2); ALT/SGPT 14 U/L (12-78); BILIRUBIN,TOTAL 0.3 MG/DL (0.2-1.0); BLOOD UREA NITROGEN 13 MG/DL (7-18); CALCIUM LEVEL 8.5 MG/DL (8.8-10.2); CARBON DIOXIDE LEVEL 35 MEQ/L (21-32); CHLORIDE LEVEL 103 MEQ/L (98-107); CREATININE FOR GFR 0.86 MG/DL (0.70-1.30); GLOMERULAR FILTRATION RATE > 60.0 (>49); GLUCOSE, FASTING 147 MG/DL (70-100); POTASSIUM SERUM 3.9 MEQ/L (3.5-5.1); SODIUM LEVEL 143 MEQ/L (136-145); TOTAL PROTEIN 7.1 GM/DL (6.4-8.2)
[2021-06-22 16:00] VITALS: BP 123/61
[2021-06-22] MEDS: ASPIRIN 81MG ENTERIC TABLET PO SCH (20:50)
[2021-06-22] MEDS: ATORVASTATIN 10 MG TAB PO SCH (20:54)
[2021-06-23] VITALS (8 sets, daily range): BP systolic 97–116; BP diastolic 56–71
[2021-06-23] MEDS: VANCOMYCIN HCL 1,000 MG, VIAL MATE ADAPTER 1 EACH in NS 250 ML IV SCH ×2 (03:02→12:18)
[2021-06-23] MEDS: traMADol 50 MG TAB PO PRN ×3 (03:04→21:51)
[2021-06-23] MEDS: PERCOCET 5MG/325MG TAB PO PRN ×3 (03:13→18:57)
[2021-06-23 05:44] LABS: BASO # 0.1 10^3/uL (0.0-0.2); BASO % 0.9 % (0.0-1.0); EOS # 0.6 10^3/uL (0.0-0.5); EOS % 6.2 % (0.0-3.0); HEMATOCRIT 32.9 % (42.0-52.0); HEMOGLOBIN 9.6 g/dl (13.5-17.5); LYMPH # 1.5 10^3/uL (1.5-5.0); LYMPH % 14.6 % (24.0-44.0); MEAN CORPUSCULAR HGB CONC 29.2 g/dl (32.0-36.5); MEAN CORPUSCULAR VOLUME 85.7 fl (80.0-96.0); MONO % 9.6 % (2.0-8.0); NEUTROPHILS # 6.9 10^3/uL (1.5-8.5); NEUTROPHILS % 68.4 % (36.0-66.0); PLATELET COUNT, AUTOMATED 433 10^3/uL (150-450); RED BLOOD COUNT 3.84 10^6/uL (4.30-6.10); WHITE BLOOD COUNT 10.1 10^3/uL (4.0-10.0)
[2021-06-23 07:45] LABS: ALBUMIN 2.5 GM/DL (3.2-5.2); ALT/SGPT 17 U/L (12-78); BILIRUBIN,TOTAL 0.4 MG/DL (0.2-1.0); BLOOD UREA NITROGEN 13 MG/DL (7-18); CALCIUM LEVEL 8.2 MG/DL (8.8-10.2); CARBON DIOXIDE LEVEL 33 MEQ/L (21-32); CHLORIDE LEVEL 102 MEQ/L (98-107); CREATININE FOR GFR 0.75 MG/DL (0.70-1.30); GLOMERULAR FILTRATION RATE > 60.0 (>49); GLUCOSE, FASTING 137 MG/DL (70-100); POTASSIUM SERUM 4.1 MEQ/L (3.5-5.1); SODIUM LEVEL 140 MEQ/L (136-145); TOTAL PROTEIN 5.8 GM/DL (6.4-8.2)
[2021-06-23] MEDS: SYMBICORT 80/4.5MCG INHALER 6GM INH SCH ×2 (08:00→20:44)
[2021-06-23] MEDS: HumaLOG INSULIN (NovoLOG) PER UNIT SC SCH ×4 (08:30→20:43)
[2021-06-23] MEDS: TORSEMIDE 10 MG TABLET PO SCH (09:41)
[2021-06-23] MEDS: DULoxetine 30MG CAPSULE (CYMBALTA) PO SCH (09:41)
[2021-06-23] MEDS: TAMSULOSIN 0.4 MG CAP PO SCH ×2 (09:43→20:33)
[2021-06-23] MEDS: METOPROLOL TART 25 MG TABLET PO SCH ×2 (09:46→20:34)
[2021-06-23] MEDS: LEVEMIR (INSULIN DETEMIR) 1 UNITS/0.01ML SC SCH ×2 (09:47→20:35)
[2021-06-23] MEDS: HEPARIN SOD (PORCINE) 5000UNITS/ML 1ML VIAL/SYRINGE SC SCH ×2 (09:47→20:34)
[2021-06-23] MEDS: LEVALBUTEROL 1.25 MG/0.5 ML CONCENTRATE NEB INH PRN ×2 (10:01→11:41)
--- NOTE | 2021-06-23 10:17 | IPNPDOC ---
Text Note Date of Service The patient was seen on 06/23/21. NOTE Subjective: Patient stated that he feels better today. Patient stated that he has less legs pain. Objective: GENERAL APPEARANCE: NAD HEENT: no scleral icterus, no JVD, EOMI CARDIOVASCULAR: S1S2 LUNGS: Diminished lung sounds bilaterally ABDOMEN: soft & not tender w palpation MUSCULOSKELETAL: no cyanosis, both distal legs multiple superficial wounds, erythematous INTEGUMENT: no generalized pallor NEUROLOGICAL: cranial nerve function from 2-12 intact, follows commands, speech not dysarthric Assessment/Plan Patient is 65 years old male with past medical history of COPD with chronic hypoxic respiratory failure on 2 L of oxygen, Obesity, Untreated ASH, diabetes, hypertension, diastolic CHF, moderate pulmonary hypertension, mild to moderate Aortic stenosis, HTN, HLD, anxiety, Peripheral neuropathy, Essential tremors, Severe neuralgic pain around the ears and the face/Trigeminal neuralgia, Loss of hearing on the right, Kidney stones, PTSD, Depression presented to the ED with Increasing SOB and legs swelling and pain for past few weeks. Patient stated that he has been having swollen legs for past few weeks associated with erythema and superficial wounds. Patient stated that his legs pain became progressively worse and he cannot tolerated. Also patient stated that he has increased shortness of breath and orthopnea. In ER patient was found to have leukocytosis of 25.6, hemoglobin 12.2, lactic acid 3.1, negative troponin. Doppler ultrasound negative for DVT. Chest x-ray negative for acute pulmonary infiltrates Problems (1) Sepsis Patient developed tachycardia with elevated white blood count most likely secondary to sepsis of lower extremities bilaterally Resolved Continue ceftriaxone IV, vancomycin IV day 2 Blood culture negative UA negative (2) Cellulitis Bilateral cellulitis superimposed with +2 pitting edema Improved today ceftriaxone IV and vancomycin IV Appreciate/agree with wound care consult (3) diastolic CHF exacerbation There is concern for acute CHF exacerbation Surprisingly BNP is not elevated, false normal value could be secondary to obesity echo ordered, report pending I's and O's Fluid overload, unspecified Most likely secondary to acute CHF exacerbation Await echo Diabetes mellitus Insulin sliding scale Detemir twice daily Glucose level under control Obesity (BMI 30-39.9) Complicated care COPD (chronic obstructive pulmonary disease) Not in acute exacerbation Continue inhalers DVT prophylaxis with heparin 5000 bid VS,Fishbone, I+O VS, Fishbone, I+O Laboratory Tests 06/22/21 10:53 12/6/21 04:56 Vital Signs Date Time Temp Pulse Resp B/P (MAP) Pulse Ox O2 Delivery O2 Flow Rate FiO2 06/23/21 09:46 97 126/67 06/23/21 09:42 20 Nasal Cannula 3.0 06/23/21 03:43 97.0 96 I&O- Last 24 Hours up to 6 AM 06/23/21 06:00 Intake Total 900 ml Output Total 325 ml Balance 575 ml NATHALY CAZARES DO Jun 23, 2021 10:17
--- NOTE | 2021-06-23 15:22 | CR ---
CONSULTATION DATE: 06/23/2021 Advanced wound care consult via telemedicine. CONSULT REQUESTED BY: Edis Sanchez DO REASON FOR CONSULT: This is regarding wound care suggestions for treatment, bilateral lower extremity wounds. Wound care telemedicine provides a visual assessment of a wound or wounds without the benefit of physical examination. It can assist with establishing a diagnosis and etiology. This allows for initial treatment plan. As wounds often change, it may be necessary to modify the original care. Our recommendation is periodic wound reassessment to monitor treatment. Failure to comply may result in nonhealing of the wounds, possible complications and/or a poor outcome. The recommendations given will serve as a treatment option. As I will not be following this patient, this care plan will require the attending physician to give and sign the orders. Upon discharge, outpatient followup can be scheduled at our wound care center. A 65-year-old male with a longstanding history of COPD on home oxygen, was admitted for exacerbation of his COPD with shortness of breath. He also was found to have bilateral lower extremity edema associated with venous stasis ulcers. The patient's respiratory status has stabilized while hospitalized. On physical appearance and inspection, the right lower extremity mid pretibial area shows diffuse edema with a venous stasis wound cluster measuring 15.0 cm by 7.0 cm. There was dry crusting noted involving the multiple wound bases. Delmy-wound shows mild diffuse erythema, consistent with chronic subacute inflammatory changes as a result of chronic venous stasis disease. The left lower extremity shows a similar clinical presentation with a wound cluster, Involving the mid-tibial area. The cluster measures 10.0 cm x 5.0 cm. and In similar manner, there is dry crusting eschar involving the wound bases and diffuse subacute chronic inflammatory changes involving the periwound and the majority of the leg. CLINICAL IMPRESSION: Patient has chronic bilateral lower extremity venous stasis disease with multiple superificial venous stasis ulcers. There are chronic subacute bilateral lower extremity inflammatory changes. This should not be confused with cellulitis as the patient is afebrile and his white count is 10.1. A prior white count which was elevated may have been secondary to acute local skin damage and/or more probably his respiratory status. TREATMENT RECOMMENDATIONS: Patient should have both right and left lower extremities cleansed with Vashe including the wound and the delmy-wound. This does not require soaking the leg for ten minutes but rather cleaning the entire lower extremity with the Vashe. Hydrofera Blue Ready can be then applied over any of the crusted exposed ulceration areas. Bilateral [employer] Master support stockings should then be applied and the patient should be in mild Trendelenburg position for the bed. This is mandatory in an attempt to utilize gravity to decompress the legs. Prior to discharge, the patient should have a standing venous ultrasound bilaterally to evaluate for reflux and a standard supine venous ultrasound. There was no indication for antibiotic therapy at this time. Please notify our clinic when the patient is near discharge as we can arrange for a followup evaluation and treatment as an outpatient at our advanced wound care center. Thank you for this consult. H[place]EN
[2021-06-23] MEDS: ONDANSETRON 4 MG TAB PO PRN (16:12)
[2021-06-23] MEDS: ASPIRIN 81MG ENTERIC TABLET PO SCH (20:33)
[2021-06-23] MEDS: ATORVASTATIN 10 MG TAB PO SCH (20:34)
[2021-06-23] MEDS: VANCOMYCIN HCL 750 MG, VIAL MATE ADAPTER 1 EACH in NS 250 ML IV SCH (20:35)
[2021-06-23] MEDS: VANCOMYCIN HCL 500 MG in D5W MINI-BAG PLUS 100 ML IV SCH (22:00)
[2021-06-24] VITALS: BP 116/64
[2021-06-24 02:52] VITALS: BP 118/66
[2021-06-24] MEDS: ONDANSETRON 4 MG TAB PO PRN ×3 (03:13→13:07)
[2021-06-24] MEDS: PERCOCET 5MG/325MG TAB PO PRN ×2 (03:15→09:50)
[2021-06-24] MEDS: LEVALBUTEROL 1.25 MG/0.5 ML CONCENTRATE NEB INH PRN (03:36)
[2021-06-24 06:00] VITALS: BP 110/63
[2021-06-24 06:10] LABS: BASO # 0.1 10^3/uL (0.0-0.2); BASO % 0.9 % (0.0-1.0); EOS # 0.4 10^3/uL (0.0-0.5); EOS % 4.8 % (0.0-3.0); HEMATOCRIT 30.2 % (42.0-52.0); LYMPH # 1.2 10^3/uL (1.5-5.0); LYMPH % 12.9 % (24.0-44.0); MEAN CORPUSCULAR HEMOGLOBIN 25.2 pg (27.0-33.0); MEAN CORPUSCULAR HGB CONC 29.8 g/dl (32.0-36.5); MEAN CORPUSCULAR VOLUME 84.6 fl (80.0-96.0); MONO # 0.8 10^3/uL (0.0-0.8); MONO % 9.4 % (2.0-8.0); NEUTROPHILS # 6.4 10^3/uL (1.5-8.5); NEUTROPHILS % 71.8 % (36.0-66.0); PLATELET COUNT, AUTOMATED 386 10^3/uL (150-450); RED BLOOD COUNT 3.57 10^6/uL (4.30-6.10)
[2021-06-24 06:39] LABS: ALBUMIN 2.3 GM/DL (3.2-5.2); ALT/SGPT 13 U/L (12-78); BILIRUBIN,TOTAL 0.2 MG/DL (0.2-1.0); BLOOD UREA NITROGEN 10 MG/DL (7-18); CALCIUM LEVEL 8.1 MG/DL (8.8-10.2); CARBON DIOXIDE LEVEL 37 MEQ/L (21-32); CHLORIDE LEVEL 100 MEQ/L (98-107); GLOMERULAR FILTRATION RATE > 60.0 (>49); GLUCOSE, FASTING 139 MG/DL (70-100); MAGNESIUM LEVEL 1.8 MG/DL (1.8-2.4); POTASSIUM SERUM 3.7 MEQ/L (3.5-5.1); SODIUM LEVEL 141 MEQ/L (136-145); TOTAL PROTEIN 6.1 GM/DL (6.4-8.2)
[2021-06-24] MEDS: SYMBICORT 80/4.5MCG INHALER 6GM INH SCH (08:04)
[2021-06-24] MEDS: METOPROLOL TART 25 MG TABLET PO SCH (08:35)
[2021-06-24] MEDS: TAMSULOSIN 0.4 MG CAP PO SCH (08:36)
[2021-06-24] MEDS: HumaLOG INSULIN (NovoLOG) PER UNIT SC SCH ×2 (08:36→12:00)
[2021-06-24] MEDS: LEVEMIR (INSULIN DETEMIR) 1 UNITS/0.01ML SC SCH (08:37)
[2021-06-24] MEDS: HEPARIN SOD (PORCINE) 5000UNITS/ML 1ML VIAL/SYRINGE SC SCH (08:37)
[2021-06-24] MEDS: TORSEMIDE 10 MG TABLET PO SCH (08:38)
[2021-06-24] MEDS: VANCOMYCIN HCL 750 MG, VIAL MATE ADAPTER 1 EACH in NS 250 ML IV SCH (08:46)
[2021-06-24] MEDS: traMADol 50 MG TAB PO PRN (08:46)
[2021-06-24] MEDS ORDERED: DULoxetine 30MG CAPSULE (CYMBALTA) PO SCH ×2 (09:00→21:00)
[2021-06-24] MEDS: VANCOMYCIN HCL 500 MG in D5W MINI-BAG PLUS 100 ML IV SCH (10:40)
[2021-06-24] MEDS ORDERED: DOXY-350 PO (11:42)
[2021-06-24] MEDS ORDERED: VICO10TA11 PO (11:42)
[2021-06-24] MEDS ORDERED: BACI50OI TOP (11:42)
[2021-06-24] MEDS ORDERED: ACET1TAB55 PO (11:42)
--- NOTE | 2021-06-24 12:20 | REP ---
INDICATION: PVD standing venous ultrasound and supine COMPARISON: 06/21/2021. TECHNIQUE: Real time compression and duplex Doppler interrogation of the bilateral lower extremity deep venous system is performed with the bed tipped to evaluate for venous reflux. FINDINGS: There is no evidence of reflux in any of the bilateral deep veins or superficial veins. There is an anterior accessory greater saphenous vein present bilaterally, neither demonstrates evidence of reflux. The right greater saphenous vein measures 5 mm at the saphenofemoral junction and at the level of the knee, 6 mm at the level of the mid thigh. The right lesser saphenous vein measures 4 mm. Left greater saphenous vein measures 8 mm at the saphenofemoral junction and 5 mm at the mid thigh and knee levels. The left lesser saphenous vein measures 4 mm. IMPRESSION: No evidence of venous reflux in any of the bilateral deep or superficial veins. <Electronically signed by Dwain Burktet > 06/24/21 [id number]
--- NOTE | 2021-06-24 12:37 | REP ---
INDICATION: LUE swelling COMPARISON: None. TECHNIQUE: Real time compression and duplex Doppler evaluation of the Bilateral upper extremity deep venous system is performed. FINDINGS: The Bilateral subclavian, jugular, axillary, brachial, basilic and cephalic veins are fully compressible where accessible with transducer pressure, and demonstrate no intraluminal thrombus and normal venous waveforms. There is no evidence of deep venous thrombosis. IMPRESSION: No evidence of deep venous thrombosis of the Bilateral upper extremity deep vein system. <Electronically signed by Dwain Burkett > 06/24/21 [id number]
--- NOTE | 2021-06-24 14:14 | ECHO ---
ECHOCARDIOGRAM DATE OF PROCEDURE: 06/22/2021 Age: Gender: Height: Weight: REFERRING PROVIDER: Dr. Edis Sanchez. PATIENT LOCATION: Room 3224. REASON FOR THE TESTING: Sepsis, fluid overload. 2D MEASUREMENTS: IVS 1.1 cm LV 3.9 cm LVPW 1.1 cm LA 3.6 cm Aorta 3.2 cm IVC 2.0 cm DOPPLER MEASUREMENT Peak velocity across the aortic valve 1.2 m/s Peak velocity across the LVOT 0.84 m/s Mitral E 0.78 Mitral A 0.63 with a ratio of 1.24 2D COMMENTS: 1. Technically limited study due to poor acoustic window. 2. The left ventricular size is normal as well as the left ventricular wall thickness and systolic function. The estimated left ventricular systolic ejection fraction is 50 to 55%. 3. Normal left atrium. Normal right atrium and right ventricle noted on limited views. 4. Normal aortic root. 5. A small pericardial effusion was noted. No evidence of cardiac tamponade. 6. The aortic valve, mitral valve, and tricuspid valve appeared to be normal. The pulmonic valve and proximal pulmonary artery branches were not well visualized. 7. The inferior vena cava is mildly enlarged. Central venous pressure is probably elevated. DOPPLER: No significant valvular abnormalities detected. Assessment of the left ventricular diastolic function appeared to be normal. IMPRESSION: 1. Technically limited study due to poor acoustic window. 2. Low normal global left ventricular systolic function. 3. Left ventricular diastolic function also appeared to be normal. 4. A small pericardial effusion was noted. No evidence of cardiac tamponade. 5. No significant valvular abnormalities detected.
[2021-06-24] MEDS ORDERED: OXYC1TAB23 PO (15:33)
--- NOTE | 2021-06-24 15:38 | DS.PDOC ---
Discharge Summary General Date of Admission Jun 21, 2021 at 11:19 Date of Discharge 06/24/21 Discharge Summary PROCEDURES PERFORMED DURING STAY: [None]. ADMITTING DIAGNOSES: Sepsis Cellulitis diastolic CHF exacerbation Fluid overload, unspecified Diabetes mellitus Obesity (BMI 30-39.9) COPD (chronic obstructive pulmonary disease) DISCHARGE DIAGNOSES: Sepsis Cellulitis diastolic CHF exacerbation Fluid overload, unspecified Diabetes mellitus Obesity (BMI 30-39.9) COPD (chronic obstructive pulmonary disease) DISCHARGE DIAGNOSES: COMPLICATIONS/CHIEF COMPLAINT: Cellulitits. HISTORY OF PRESENT ILLNESS:Patient is 65 years old male with past medical history of COPD with chronic hypoxic respiratory failure on 2 L of oxygen, Obesity, Untreated ASH, diabetes, hypertension, diastolic CHF, moderate pulmonary hypertension, mild to moderate Aortic stenosis, HTN, HLD, anxiety, Peripheral neuropathy, Essential tremors, Severe neuralgic pain around the ears and the face/Trigeminal neuralgia, Loss of hearing on the right, Kidney stones, PTSD, Depression presented to the ED with Increasing SOB and legs swelling and pain for past few weeks. Patient stated that he has been having swollen legs for past few weeks associated with erythema and superficial wounds. Patient stated that his legs pain became progressively worse and he cannot tolerated. Also patient stated that he has increased shortness of breath and orthopnea. In ER patient was found to have leukocytosis of 25.6, hemoglobin 12.2, lactic acid 3.1, negative troponin. Doppler ultrasound negative for DVT. Chest x-ray negative for acute pulmonary infiltrates HOSPITAL COURSE: During the hospital stay the following issue addressed (1) Sepsis Patient developed tachycardia with elevated white blood count most likely secondary to sepsis of lower extremities bilaterally Patient received broad-spectrum antibiotic therapy with ceftriaxone IV, vancomycin IV with positive effect Blood culture negative UA negative (2) Cellulitis Bilateral cellulitis superimposed with +2 pitting edema Improved today ceftriaxone IV and vancomycin IV (3) diastolic CHF exacerbation There is concern for acute CHF exacerbation Surprisingly BNP is not elevated, false normal value could be secondary to obesity echo see result below I's and O's Fluid overload, unspecified Most likely secondary to acute CHF exacerbation Await echo Diabetes mellitus Insulin sliding scale Detemir twice daily Glucose level under control Obesity (BMI 30-39.9) Complicated care COPD (chronic obstructive pulmonary disease) Not in acute exacerbation Continue inhalers DISCHARGE MEDICATIONS: Please see below. ALLERGIES: Please see below. PHYSICAL EXAMINATION ON DISCHARGE: VITAL SIGNS: Please see below. GENERAL APPEARANCE: NAD HEENT: no scleral icterus, no JVD, EOMI CARDIOVASCULAR: S1S2 LUNGS: Diminished lung sounds bilaterally ABDOMEN: soft & not tender w palpation MUSCULOSKELETAL: no cyanosis, both distal legs multiple superficial wounds, erythematous INTEGUMENT: no generalized pallor NEUROLOGICAL: cranial nerve function from 2-12 intact, follows commands, speech not dysarthric LABORATORY DATA: Please see below. IMAGING: NAME: GENIE BUCKNER : 1955 MEDICAL REC #: [id number] ROOM: [facility] ACCOUNT: [id number] ORDERING DOCTOR: NATHALY CAZARES DO PATIENT STATUS: DIS IN DICTATING DOCTOR: Saji Hines MD REPORT #: [id number] cc: [~ rep ct ivnm] ECHOCARDIOGRAM-DOPPLER REPORT Printed: [~ rep prt dt last] [~ rep prt tm last] Page 2 of [address] [id number] ECHOCARDIOGRAM-DOPPLER REPORT ECHOCARDIOGRAM-DOPPLER REPORT Printed: [~ rep prt dt last] [~ rep prt tm last] Page 1 of 2 DATE OF PROCEDURE: 06/22/2021 Age: Gender: Height: Weight: REFERRING PROVIDER: Dr. Nathaly Cazares. PATIENT LOCATION: Room [facility]. REASON FOR THE TESTING: Sepsis, fluid overload. 2D MEASUREMENTS: IVS 1.1 cm LV 3.9 cm LVPW 1.1 cm LA 3.6 cm Aorta 3.2 cm IVC 2.0 cm DOPPLER MEASUREMENT Peak velocity across the aortic valve 1.2 m/s Peak velocity across the LVOT 0.84 m/s Mitral E 0.78 Mitral A 0.63 with a ratio of 1.24 2D COMMENTS: 1. Technically limited study due to poor acoustic window. 2. The left ventricular size is normal as well as the left ventricular wall thickness and systolic function. The estimated left ventricular systolic ejection fraction is 50 to 55%. 3. Normal left atrium. Normal right atrium and right ventricle noted on limited views. 4. Normal aortic root. 5. A small pericardial effusion was noted. No evidence of cardiac tamponade. 6. The aortic valve, mitral valve, and tricuspid valve appeared to be normal. The pulmonic valve and proximal pulmonary artery branches were not well visualized. 7. The inferior vena cava is mildly enlarged. Central venous pressure is probably elevated. DOPPLER: No significant valvular abnormalities detected. Assessment of the left ventricular diastolic function appeared to be normal. IMPRESSION: 1. Technically limited study due to poor acoustic window. 2. Low normal global left ventricular systolic function. 3. Left ventricular diastolic function also appeared to be normal. 4. A small pericardial effusion was noted. No evidence of cardiac tamponade. 5. No significant valvular abnormalities detected. DD: Saji Hines MD 06/23/212117 DT: LEILANI 06/24/21 1302 DS: DS2: [~ rep ct labl] PROGNOSIS: Fair ACTIVITY: [As tolerated]. DIET: Cardiac DISPOSITION: 01 Home, Self-Care. DISCHARGE INSTRUCTIONS: Follow you instruction from sales support specialist ITEMS TO FOLLOWUP ON ON OUTPATIENT: Follow-up with sales support specialist and PCP DISCHARGE CONDITION: [Stable]. TIME SPENT ON DISCHARGE: 50minutes. Vital Signs/I&Os Vital Signs Date Time Temp Pulse Resp B/P (MAP) Pulse Ox O2 Delivery O2 Flow Rate FiO2 06/24/21 10:40 18 94 Nasal Cannula 2.0 06/24/21 06:00 98.3 104 110/63 (79) I&O- Last 24 Hours up to 6 AM 06/24/21 05:59 Intake Total 2510 ml Output Total 1900 ml Balance 610 ml Laboratory Data Labs 24H Laboratory Tests 2 06/23/21 16:56: Bedside Glucose (Misc Panel) 112 06/23/21 20:42: Bedside Glucose (Misc Panel) 148H 06/24/21 03:16: Bedside Glucose (Misc Panel) 132H 06/24/21 05:33: Immature Granulocyte % (Auto) 0.2, Neutrophils (%) (Auto) 71.8H, Lymphocytes (%) (Auto) 12.9L, Monocytes (%) (Auto) 9.4H, Eosinophils (%) (Auto) 4.8H, Basophils (%) (Auto) 0.9, Neutrophils # (Auto) 6.4, Lymphocytes # (Auto) 1.2L, Monocytes # (Auto) 0.8, Eosinophils # (Auto) 0.4, Basophils # (Auto) 0.1, Nucleated Red Blood Cells % (auto) 0.0, Anion Gap 4L, Glomerular Filtration Rate > 60.0, Calcium Level 8.1L, Magnesium Level 1.8, Total Bilirubin 0.2, Aspartate Amino Transf (AST/SGOT) 12, Alanine Aminotransferase (ALT/SGPT) 13, Alkaline Phosphatase 68, Total Protein 6.1L, Albumin 2.3L, Albumin/Globulin Ratio 0.6 06/24/21 07:50: Vancomycin Level Trough 14.9 CBC/BMP Laboratory Tests 06/24/21 05:33 FSBS Laboratory Tests Test 06/23/21 16:56 06/23/21 20:42 06/24/21 03:16 Range/Units Bedside Glucose (Misc Panel) 112 148 132 80-115 MG/DL Microbiology Microbiology 06/21/21 Respiratory Virus Panel (PCR) ([facility]) - Final, Complete 06/21/21 Blood Culture - Preliminary, Resulted No Growth after 72 hours. All specime... 06/21/21 Blood Culture - Preliminary, Resulted No Growth after 72 hours. All specime... Discharge Medications Scheduled Aspirin (Aspirin EC) 81 Mg Tablet.dr, 81 MG PO QHS, (Reported) Atorvastatin Calcium (Atorvastatin Calcium) 10 Mg Tablet, 10 MG PO QHS, (Reported) Budesonide/Formoterol (Symbicort 80-4.5 Mcg Inhaler) 6.9 Gm Hfa.aer.ad, 2 PUFF INH BID, (Reported) Doxycycline Monohydrate (Doxycycline) 100 Mg Capsule, 100 MG PO BID Duloxetine Hcl (Duloxetine HCl) 30 Mg Cap, 60 MG PO DAILY, (Reported) Duloxetine Hcl (Duloxetine HCl) 30 Mg Capsule.dr, 30 MG PO QHS, (Reported) Glimepiride (Glimepiride) 2 Mg Tablet, 2 MG PO BID, (Reported) Insulin Detemir (Levemir Flextouch) 100 Unit/1 Ml Insuln.pen, 15 UNIT SC DAILY, (Reported) Insulin Detemir (Levemir Flextouch) 100 Unit/1 Ml Insuln.pen, 10 UNIT SC QHS, (R eported) Metoprolol Tartrate (Metoprolol Tartrate) 25 Mg Tablet, 25 MG PO BID, (Reported) Tamsulosin HCl (Flomax) 0.4 Mg Cap, 0.4 MG PO BID, (Reported) Torsemide (Torsemide) 20 Mg Tablet, 40 MG PO DAILY, (Reported) Scheduled PRN Acetaminophen (Acetaminophen) 325 Mg Tablet, 650 MG PO Q4H PRN for MILD PAIN or TEMP > 101 Albuterol Sulfate (Ventolin Hfa) 18 Gm Hfa.aer.ad, 2 PUFFS INH QID PRN for SOB/WHEEZING, (Reported) Bacitracin (Bacitracin) 28.4 Gm Oint...g., 0 DOSE TOP DAILYPRN PRN for SEE LABEL COMMENTS Epinephrine (Epipen 2-Shashi) 0.3 Mg/0.3 Ml Inj, 0.3 MG INJ ASDIRECTED PRN for ANAPHYLAXIS, (Reported) Ketoconazole (Ketoconazole) 15 Gm Cream..g., 1 APLCT TOP BID PRN for RASH, (Reported) APPLY TO FACE Levalbuterol HCl (Levalbuterol HCl) 1.25 Mg/3 Ml Vial.neb, 1 VIAL NEB Q4H PRN for SOB/WHEEZING, (Reported) Oxycodone HCl/Acetaminophen (Oxycodone-Acetaminophen 5-325) 1 Each Tablet, 1 TAB PO QIDP PRN for pain Trazodone HCl (Trazodone HCl) 50 Mg Tablet, 50 MG PO QHS PRN for INSOMNIA, (Reported) Allergies Coded Allergies: Penicillins (Verified Allergy, Severe, anaphylaxis, 06/19/20) per Dr. García primidone (Verified Allergy, Severe, 01/26/21) hives codeine (Verified Allergy, Intermediate, HIVES, 11/20/20) ibuprofen (Verified Allergy, Intermediate, face swelling, 11/20/20) BRAND ADVIL bee venom protein (honey bee) (Verified Allergy, Unknown, 06/19/20) NATHALY CAZARES DO Jun 24, 2021 15:38
== END 2021-06-24 13:11 | disposition home or self-care (01) | DRG 871 ==
LOC: EDBD 08:18 → M ED 08:18 → M ED INP 11:19 → ENRESERV 15:09 → M PCU 16:45 → M MSPAV 06-24 02:40
PROVIDERS: ADMIT Internal Medicine; ATTEND Internal Medicine
DX: A41.9 Sepsis, unspecified organism (principal); I50.33 Acute on chronic diastolic (congestive) heart failure; L03.115 Cellulitis of right lower limb; L03.116 Cellulitis of left lower limb; L97.918 Non-pressure chronic ulcer of unspecified part of right lower leg with other specified severity; L97.928 Non-pressure chronic ulcer of unspecified part of left lower leg with other specified severity; I50.32 Chronic diastolic (congestive) heart failure; J96.11 Chronic respiratory failure with hypoxia; E11.622 Type 2 diabetes mellitus with other skin ulcer; I11.0 Hypertensive heart disease with heart failure; I27.20 Pulmonary hypertension, unspecified; F41.9 Anxiety disorder, unspecified; G50.0 Trigeminal neuralgia; I87.2 Venous insufficiency (chronic) (peripheral); E78.5 Hyperlipidemia, unspecified; G47.33 Obstructive sleep apnea (adult) (pediatric); F43.10 Post-traumatic stress disorder, unspecified; F32.A Depression, unspecified; I35.0 Nonrheumatic aortic (valve) stenosis; J44.9 Chronic obstructive pulmonary disease, unspecified; E11.42 Type 2 diabetes mellitus with diabetic polyneuropathy; E66.9 Obesity, unspecified; Z68.36 Body mass index [BMI] 36.0-36.9, adult; Z99.81 Dependence on supplemental oxygen; Z87.442 Personal history of urinary calculi; Z79.82 Long term (current) use of aspirin; Z79.4 Long term (current) use of insulin; Z79.899 Other long term (current) drug therapy; Z88.0 Allergy status to penicillin; Z88.6 Allergy status to analgesic agent; Z88.8 Allergy status to other drugs, medicaments and biological substances; Z91.030 Bee allergy status; Z87.891 Personal history of nicotine dependence

== ENCOUNTER 2021-09-08 12:35 | Inpatient (IN) | payer MEDICARE ==
[~2021-09-08] VITALS: Ht 177.8 cm; Wt 121.0 kg
[~2021-09-08 12:35] MED LIST changes: +ACET1TAB55 PO; +BACI50OI TOP; -LEVO500T3 PO; +LEVO500T4 PO; +OXYC1TAB23 PO; +VICO10TA11 PO
[2021-09-08] MEDS ORDERED: MORPHINE 4 MG/ML 1ML VIAL/SYRINGE (J2270) IV ONE ×2 (12:55→16:45)
[2021-09-08] MEDS ORDERED: FUROSEMIDE 40MG/4ML VIAL (J1940) IV ONE (12:55)
[2021-09-08] MEDS ORDERED: ONDANSETRON 4MG/2ML VIAL IV ONE (14:30)
[2021-09-08 14:33] LABS: BASO # 0.1 10^3/uL (0.0-0.2); BASO % 0.7 % (0.0-1.0); EOS # 0.2 10^3/uL (0.0-0.5); HEMATOCRIT 38.8 % (42.0-52.0); HEMOGLOBIN 11.8 g/dl (13.5-17.5); LYMPH # 1.3 10^3/uL (1.5-5.0); LYMPH % 10.8 % (24.0-44.0); MEAN CORPUSCULAR HEMOGLOBIN 23.7 pg (27.0-33.0); MEAN CORPUSCULAR HGB CONC 30.4 g/dl (32.0-36.5); MEAN CORPUSCULAR VOLUME 77.9 fl (80.0-96.0); MONO # 1.1 10^3/uL (0.0-0.8); MONO % 9.1 % (2.0-8.0); NEUTROPHILS # 9.1 10^3/uL (1.5-8.5); NEUTROPHILS % 76.9 % (36.0-66.0); PLATELET COUNT, AUTOMATED 497 10^3/uL (150-450); RED BLOOD COUNT 4.98 10^6/uL (4.30-6.10); WHITE BLOOD COUNT 11.8 10^3/uL (4.0-10.0)
[2021-09-08 15:05] LABS: ALBUMIN 3.1 GM/DL (3.2-5.2); ALT/SGPT 16 U/L (12-78); BILIRUBIN,DIRECT 0.1 MG/DL (0.0-0.2); BILIRUBIN,TOTAL 0.4 MG/DL (0.2-1.0); BLOOD UREA NITROGEN 16 MG/DL (7-18); CALCIUM LEVEL 9.2 MG/DL (8.8-10.2); CARBON DIOXIDE LEVEL 31 MEQ/L (21-32); CHLORIDE LEVEL 95 MEQ/L (98-107); CREATININE FOR GFR 0.97 MG/DL (0.70-1.30); GLOMERULAR FILTRATION RATE > 60.0 (>49); GLUCOSE, FASTING 158 MG/DL (70-100); NT-PRO BNP 77 PG/ML (<125); POTASSIUM SERUM 4.2 MEQ/L (3.5-5.1); SODIUM LEVEL 137 MEQ/L (136-145); TOTAL PROTEIN 7.6 GM/DL (6.4-8.2)
[2021-09-08] MEDS ORDERED: VANCOMYCIN HCL 1,000 MG, VIAL MATE ADAPTER 1 EACH in NS 250 ML IV ONE ×2 (15:10→20:00)
[2021-09-08 15:52] LABS: ERYTHROCYTE SEDIMENTATION RATE 8 mm/hr (0-20)
[2021-09-08 16:45] VITALS: BP 157/93
[2021-09-08] MEDS ORDERED: MORPHINE 30 MG TAB **MSIR PO PRN (16:50)
[2021-09-08] MEDS ORDERED: ONDANSETRON 4MG/2ML VIAL IV PRN (16:50)
[2021-09-08] MEDS ORDERED: SENOKOT S TAB PO PRN (16:50)
[2021-09-08] MEDS ORDERED: ISOVUE-370 76% 100ML VIAL As Ordered ONE (17:01)
[2021-09-08] MEDS ORDERED: LevoFLOXacin IV 750 MG in IV 1 EA IV SCH (18:00)
[2021-09-08] MEDS ORDERED: DEXTROSE 50% 50 ML SYRINGE IV PRN (18:15)
[2021-09-08] MEDS ORDERED: GLUCOSE 4GM CHEW TABLET PO PRN (18:15)
[2021-09-08] MEDS ORDERED: GLUCAGON INJ 1MG VIAL SC PRN (18:15)
[2021-09-08] MEDS ORDERED: PILL CUTTER 1 EACH XX PRN (18:25)
[2021-09-08] MEDS: LACTOBACILLUS ACIDOPHILUS CAP (BACID) PO SCH ×2 (18:30→21:00)
[2021-09-08] MEDS ORDERED: LEVALBUTEROL 1.25 MG/0.5 ML CONCENTRATE NEB INH PRN (18:30)
[2021-09-08] MEDS ORDERED: PREG50CA2 PO (18:58)
[2021-09-08] MEDS ORDERED: HOME MED LIST COMPLETE! XX SCH (19:05)
[2021-09-08] MEDS ORDERED: traMADol 50 MG TAB PO PRN (19:10)
[2021-09-08] MEDS ORDERED: traMADol 50 MG TAB PO ONE (19:10)
[2021-09-08 19:29] VITALS: BP 143/90
[2021-09-08] MEDS: predniSONE 20 MG TAB PO SCH (19:38)
[2021-09-08] MEDS: LEVALBUTEROL 1.25 MG/0.5 ML CONCENTRATE NEB INH SCH (19:49)
[2021-09-08] MEDS: HumaLOG INSULIN (NovoLOG) PER UNIT SC SCH (20:52)
[2021-09-08 21:00] VITALS: BP 142/86
[2021-09-08] MEDS: ACETAMINOPHEN 500 MG TAB PO SCH (21:00)
[2021-09-08] MEDS ORDERED: PERCOCET 5MG/325MG TAB PO ONE (22:00)
[2021-09-08] MEDS ORDERED: VANCOMYCIN HCL 1,000 MG, VIAL MATE ADAPTER 1 EACH in NS 250 ML IV SCH (23:00)
[2021-09-09] MEDS ORDERED: VANCOMYCIN HCL 1,000 MG, VIAL MATE ADAPTER 1 EACH in NS 250 ML IV SCH ×3
[2021-09-09] MEDS ORDERED: VANCOMYCIN HCL 750 MG, VIAL MATE ADAPTER 1 EACH in NS 250 ML IV SCH ×2 (01:00→13:00)
[2021-09-09] MEDS: LEVALBUTEROL 1.25 MG/0.5 ML CONCENTRATE NEB INH SCH ×3 (02:05→13:07)
[2021-09-09 06:00] VITALS: BP 133/82
[2021-09-09 06:05] LABS: BASO % 0.4 % (0.0-1.0); HEMOGLOBIN 10.4 g/dl (13.5-17.5); LYMPH # 0.8 10^3/uL (1.5-5.0); LYMPH % 7.1 % (24.0-44.0); MEAN CORPUSCULAR HEMOGLOBIN 23.6 pg (27.0-33.0); MEAN CORPUSCULAR HGB CONC 30.6 g/dl (32.0-36.5); MEAN CORPUSCULAR VOLUME 77.1 fl (80.0-96.0); MONO # 0.9 10^3/uL (0.0-0.8); MONO % 8.4 % (2.0-8.0); NEUTROPHILS % 83.5 % (36.0-66.0); PLATELET COUNT, AUTOMATED 450 10^3/uL (150-450); RED BLOOD COUNT 4.41 10^6/uL (4.30-6.10); WHITE BLOOD COUNT 10.8 10^3/uL (4.0-10.0)
[2021-09-09 06:36] LABS: HEMOGLOBIN A1c 6.8 %
[2021-09-09 06:44] LABS: BLOOD UREA NITROGEN 10 MG/DL (7-18); CALCIUM LEVEL 8.8 MG/DL (8.8-10.2); CARBON DIOXIDE LEVEL 34 MEQ/L (21-32); CHLORIDE LEVEL 96 MEQ/L (98-107); CHOLESTEROL LEVEL 124 MG/DL (<200); CREATININE FOR GFR 0.81 MG/DL (0.70-1.30); GLOMERULAR FILTRATION RATE > 60.0 (>49); GLUCOSE, FASTING 178 MG/DL (70-100); HDL CHOLESTEROL 49 MG/DL (>40); LDL CHOLESTEROL 61 MG/DL (<100); NON-HDL-C 75 MG/DL; POTASSIUM SERUM 3.7 MEQ/L (3.5-5.1); SODIUM LEVEL 134 MEQ/L (136-145); TRIGLYCERIDES LEVEL 68 MG/DL (<150)
[2021-09-09] MEDS: HumaLOG INSULIN (NovoLOG) PER UNIT SC SCH ×4 (07:30→20:14)
[2021-09-09] MEDS: SYMBICORT 80/4.5MCG INHALER 6GM INH SCH ×2 (08:00→19:32)
[2021-09-09] MEDS ORDERED: metOLazone 5 MG TAB PO ONE (08:15)
[2021-09-09] MEDS ORDERED: FUROSEMIDE 40MG/4ML VIAL (J1940) IV SCH (09:00)
[2021-09-09] MEDS: ACETAMINOPHEN 500 MG TAB PO SCH ×3 (09:00→20:56)
[2021-09-09] MEDS ORDERED: predniSONE 20 MG TAB PO SCH (09:00)
[2021-09-09] MEDS: LACTOBACILLUS ACIDOPHILUS CAP (BACID) PO SCH ×4 (09:20→21:04)
[2021-09-09] MEDS: predniSONE 20 MG TAB PO SCH (09:20)
[2021-09-09] MEDS ORDERED: ISOVUE-370 76% 100ML VIAL As Ordered ONE (09:59)
[2021-09-09] MEDS ORDERED: traZODone 50 MG TAB PO PRN (12:35)
[2021-09-09] MEDS: LEVEMIR (INSULIN DETEMIR) 1 UNITS/0.01ML SC SCH ×2 (13:51→20:55)
[2021-09-09] MEDS: DULoxetine 30MG CAPSULE (CYMBALTA) PO SCH ×2 (13:51→21:04)
[2021-09-09] MEDS: TAMSULOSIN 0.4 MG CAP PO SCH ×2 (13:51→21:03)
[2021-09-09] MEDS: METOPROLOL TART 25 MG TABLET PO SCH ×2 (13:52→21:03)
[2021-09-09] MEDS: PERCOCET 5MG/325MG TAB PO PRN ×2 (13:56→19:04)
[2021-09-09 14:00] VITALS: BP 119/72
[2021-09-09] MEDS ORDERED: VANCOMYCIN HCL 500 MG in D5W MINI-BAG PLUS 100 ML IV SCH (14:00)
[2021-09-09] MEDS: PREGABALIN 50 MG CAP (LYRICA) PO SCH ×2 (17:20→21:03)
[2021-09-09] MEDS: GLIMEPIRIDE 2 MG TAB PO SCH (17:20)
[2021-09-09] MEDS ORDERED: LevoFLOXacin 750 MG TABLET PO ONE (17:45)
[2021-09-09 21:00] VITALS: BP 111/76
[2021-09-09] MEDS: ATORVASTATIN 10 MG TAB PO SCH (21:03)
[2021-09-09] MEDS: ASPIRIN 81MG ENTERIC TABLET PO SCH (21:03)
[2021-09-09] MEDS: SENOKOT S TAB PO SCH (21:04)
[2021-09-10] MEDS: PERCOCET 5MG/325MG TAB PO PRN ×4 (01:16→23:59)
[2021-09-10] MEDS: LEVALBUTEROL 1.25 MG/0.5 ML CONCENTRATE NEB INH SCH ×4 (01:47→20:00)
[2021-09-10 06:00] VITALS: BP 109/79
[2021-09-10] MEDS: LevoFLOXacin 750 MG TABLET PO SCH (06:04)
[2021-09-10 06:27] LABS: BASO # 0.1 10^3/uL (0.0-0.2); BASO % 0.5 % (0.0-1.0); EOS # 0.2 10^3/uL (0.0-0.5); EOS % 1.9 % (0.0-3.0); HEMATOCRIT 32.8 % (42.0-52.0); HEMOGLOBIN 10.1 g/dl (13.5-17.5); LYMPH # 1.6 10^3/uL (1.5-5.0); LYMPH % 13.8 % (24.0-44.0); MEAN CORPUSCULAR HEMOGLOBIN 23.7 pg (27.0-33.0); MEAN CORPUSCULAR HGB CONC 30.8 g/dl (32.0-36.5); MONO % 13.8 % (2.0-8.0); NEUTROPHILS # 8.2 10^3/uL (1.5-8.5); NEUTROPHILS % 69.5 % (36.0-66.0); PLATELET COUNT, AUTOMATED 497 10^3/uL (150-450); RED BLOOD COUNT 4.26 10^6/uL (4.30-6.10); WHITE BLOOD COUNT 11.8 10^3/uL (4.0-10.0)
[2021-09-10 07:00] LABS: BLOOD UREA NITROGEN 12 MG/DL (7-18); CALCIUM LEVEL 8.9 MG/DL (8.8-10.2); CARBON DIOXIDE LEVEL 36 MEQ/L (21-32); CHLORIDE LEVEL 92 MEQ/L (98-107); CREATININE FOR GFR 0.78 MG/DL (0.70-1.30); GLOMERULAR FILTRATION RATE > 60.0 (>49); GLUCOSE, FASTING 77 MG/DL (70-100); POTASSIUM SERUM 3.1 MEQ/L (3.5-5.1); SODIUM LEVEL 136 MEQ/L (136-145)
[2021-09-10 07:02] LABS: MONO # 1.6 10^3/uL (0.0-0.8)
[2021-09-10] MEDS ORDERED: POTASSIUM CHLORIDE 10MEQ SR TABLET PO ONE (07:20)
[2021-09-10] MEDS: HumaLOG INSULIN (NovoLOG) PER UNIT SC SCH ×4 (07:30→21:00)
[2021-09-10] MEDS: SYMBICORT 80/4.5MCG INHALER 6GM INH SCH ×2 (07:36→20:00)
[2021-09-10] MEDS: PREGABALIN 50 MG CAP (LYRICA) PO SCH ×3 (08:37→21:16)
[2021-09-10] MEDS: LACTOBACILLUS ACIDOPHILUS CAP (BACID) PO SCH ×4 (08:38→21:14)
[2021-09-10] MEDS: SENOKOT S TAB PO SCH ×2 (08:38→21:00)
[2021-09-10] MEDS: GLIMEPIRIDE 2 MG TAB PO SCH ×2 (08:38→17:54)
[2021-09-10] MEDS: DULoxetine 30MG CAPSULE (CYMBALTA) PO SCH ×2 (08:39→21:14)
[2021-09-10] MEDS: predniSONE 20 MG TAB PO SCH (08:39)
[2021-09-10] MEDS: ACETAMINOPHEN 500 MG TAB PO SCH ×3 (08:40→21:00)
[2021-09-10] MEDS: TAMSULOSIN 0.4 MG CAP PO SCH ×2 (08:40→21:14)
[2021-09-10] MEDS: METOPROLOL TART 25 MG TABLET PO SCH ×2 (08:43→21:00)
[2021-09-10] MEDS ORDERED: PREVNAR 13 VACCINE SYRINGE IM ONE (09:00)
[2021-09-10] MEDS ORDERED: TORSEMIDE 20 MG TAB PO SCH ×2 (09:00)
[2021-09-10] MEDS ORDERED: metOLazone 5 MG TAB PO SCH (09:00)
[2021-09-10] MEDS: POTASSIUM CHLORIDE 10MEQ SR TABLET PO SCH (10:26)
[2021-09-10] MEDS ORDERED: oxyCODONE 5MG TAB PO PRN (10:50)
[2021-09-10 14:00] VITALS: BP 112/77
[2021-09-10 21:00] VITALS: BP 110/75
[2021-09-10] MEDS: ASPIRIN 81MG ENTERIC TABLET PO SCH (21:14)
[2021-09-10] MEDS: DIAPER RELIEF PASTE (DESITIN) 60GM TOP SCH (21:14)
[2021-09-10] MEDS: ATORVASTATIN 10 MG TAB PO SCH (21:16)
[2021-09-10] MEDS ORDERED: oxyCODONE 5MG TAB PO ONE (22:55)
[2021-09-11] MEDS: LEVALBUTEROL 1.25 MG/0.5 ML CONCENTRATE NEB INH SCH ×3 (01:58→14:00)
[2021-09-11 06:00] VITALS: BP 116/76
[2021-09-11] MEDS: LevoFLOXacin 750 MG TABLET PO SCH (06:00)
[2021-09-11] MEDS: PERCOCET 5MG/325MG TAB PO PRN ×2 (06:05→12:59)
[2021-09-11 06:21] LABS: BASO # 0.1 10^3/uL (0.0-0.2); BASO % 0.6 % (0.0-1.0); EOS # 0.3 10^3/uL (0.0-0.5); EOS % 2.2 % (0.0-3.0); HEMATOCRIT 35.8 % (42.0-52.0); HEMOGLOBIN 11.1 g/dl (13.5-17.5); LYMPH % 17.9 % (24.0-44.0); MEAN CORPUSCULAR HEMOGLOBIN 23.4 pg (27.0-33.0); MEAN CORPUSCULAR VOLUME 75.5 fl (80.0-96.0); MONO % 13.8 % (2.0-8.0); NEUTROPHILS # 7.2 10^3/uL (1.5-8.5); NEUTROPHILS % 64.7 % (36.0-66.0); PLATELET COUNT, AUTOMATED 502 10^3/uL (150-450); RED BLOOD COUNT 4.74 10^6/uL (4.30-6.10); WHITE BLOOD COUNT 11.2 10^3/uL (4.0-10.0)
[2021-09-11 06:23] LABS: MONO # 1.6 10^3/uL (0.0-0.8)
[2021-09-11 07:04] LABS: BLOOD UREA NITROGEN 17 MG/DL (7-18); CARBON DIOXIDE LEVEL 40 MEQ/L (21-32); CHLORIDE LEVEL 88 MEQ/L (98-107); CREATININE FOR GFR 1.02 MG/DL (0.70-1.30); GLOMERULAR FILTRATION RATE > 60.0 (>49); GLUCOSE, FASTING 86 MG/DL (70-100); POTASSIUM SERUM 2.6 MEQ/L (3.5-5.1); SODIUM LEVEL 134 MEQ/L (136-145)
[2021-09-11] MEDS: HumaLOG INSULIN (NovoLOG) PER UNIT SC SCH ×3 (07:30→17:30)
[2021-09-11] MEDS: SYMBICORT 80/4.5MCG INHALER 6GM INH SCH (07:41)
[2021-09-11] MEDS ORDERED: POTASSIUM CHLORIDE 10MEQ SR TABLET PO ONE ×2 (08:00→12:00)
[2021-09-11] MEDS: LACTOBACILLUS ACIDOPHILUS CAP (BACID) PO SCH ×2 (08:56→12:58)
[2021-09-11] MEDS: PREGABALIN 50 MG CAP (LYRICA) PO SCH ×2 (08:56→16:50)
[2021-09-11] MEDS: SENOKOT S TAB PO SCH (08:56)
[2021-09-11] MEDS: GLIMEPIRIDE 2 MG TAB PO SCH (08:57)
[2021-09-11] MEDS: ACETAMINOPHEN 500 MG TAB PO SCH ×2 (08:57→15:48)
[2021-09-11] MEDS: TAMSULOSIN 0.4 MG CAP PO SCH (08:57)
[2021-09-11] MEDS: DULoxetine 30MG CAPSULE (CYMBALTA) PO SCH (08:57)
[2021-09-11] MEDS: DIAPER RELIEF PASTE (DESITIN) 60GM TOP SCH (08:58)
[2021-09-11] MEDS ORDERED: predniSONE 10 MG TAB PO SCH (09:00)
[2021-09-11] MEDS: POTASSIUM CHLORIDE 10MEQ SR TABLET PO SCH (09:55)
[2021-09-11 10:30] VITALS: BP 113/78
[2021-09-11] MEDS: METOPROLOL TART 25 MG TABLET PO SCH (10:30)
[2021-09-11 14:00] VITALS: BP 113/88
[2021-09-11] MEDS ORDERED: METO25TA PO (16:31)
[2021-09-11] MEDS ORDERED: ROXI15TA12 PO (16:31)
[2021-09-11] MEDS ORDERED: POTA-151 PO (16:36)
[2021-09-12] MEDS ORDERED: TORSEMIDE 20 MG TAB PO SCH (09:00)
[2021-09-12] MEDS ORDERED: metOLazone 5 MG TAB PO SCH (09:00)
== END 2021-09-11 18:25 | disposition home health service (06) | DRG 299 ==
LOC: EDBD 12:35 → M ED 12:35 → M ED INP 16:45 → ENRESERV 17:13 → M MSPAV 18:42
PROVIDERS: ADMIT General Practice; ATTEND Internal Medicine Nephrology
DX: I83.009 Varicose veins of unspecified lower extremity with ulcer of unspecified site (principal); I50.33 Acute on chronic diastolic (congestive) heart failure; J96.11 Chronic respiratory failure with hypoxia; L97.919 Non-pressure chronic ulcer of unspecified part of right lower leg with unspecified severity; L97.929 Non-pressure chronic ulcer of unspecified part of left lower leg with unspecified severity; J44.1 Chronic obstructive pulmonary disease with (acute) exacerbation; L03.115 Cellulitis of right lower limb; L03.116 Cellulitis of left lower limb; G47.33 Obstructive sleep apnea (adult) (pediatric); Z91.19 Patient's noncompliance with other medical treatment and regimen; E11.42 Type 2 diabetes mellitus with diabetic polyneuropathy; I11.0 Hypertensive heart disease with heart failure; I27.20 Pulmonary hypertension, unspecified; I35.0 Nonrheumatic aortic (valve) stenosis; E66.9 Obesity, unspecified; F41.9 Anxiety disorder, unspecified; G25.0 Essential tremor; G50.0 Trigeminal neuralgia; F43.10 Post-traumatic stress disorder, unspecified; F32.A Depression, unspecified; Z20.822 Contact with and (suspected) exposure to COVID-19; E11.622 Type 2 diabetes mellitus with other skin ulcer; I87.2 Venous insufficiency (chronic) (peripheral); Z99.81 Dependence on supplemental oxygen; Z68.38 Body mass index [BMI] 38.0-38.9, adult; E78.5 Hyperlipidemia, unspecified; Z79.82 Long term (current) use of aspirin; Z79.4 Long term (current) use of insulin; Z79.52 Long term (current) use of systemic steroids; Z79.899 Other long term (current) drug therapy; Z88.0 Allergy status to penicillin; Z88.5 Allergy status to narcotic agent; Z88.6 Allergy status to analgesic agent; Z88.8 Allergy status to other drugs, medicaments and biological substances; Z91.030 Bee allergy status; Z87.891 Personal history of nicotine dependence; J84.10 Pulmonary fibrosis, unspecified; I27.81 Cor pulmonale (chronic)

== ENCOUNTER → 2022-01-06 | Outpatient (CLI) | payer MEDICARE ==
[~2022-01-06] MED LIST changes: +METO25TA PO; +POTA-151 PO; +PREG50CA2 PO; +ROXI15TA12 PO
== END ==
LOC: M SOG 09:09
PROVIDERS: ATTEND Orthopaedic Surgery Hand Surgery
DX: M79.642 Pain in left hand (principal)

== ENCOUNTER → 2022-01-07 | Outpatient (CLI) | payer MEDICARE | LOC: M WHC 12:28 | PROVIDERS: ATTEND Orthopaedic Surgery Hand Surgery | DX: Z18.9 Retained foreign body fragments, unspecified material (principal) ==

== ENCOUNTER → 2022-01-20 | Outpatient (CLI) | payer MEDICARE | LOC: M LABSMTC 09:06 | PROVIDERS: ATTEND Anesthesiology | DX: Z01.818 Encounter for other preprocedural examination (principal); Z11.52 Encounter for screening for COVID-19 ==

== ENCOUNTER 2022-01-23 07:53 | Day surgery (SDC) | payer MEDICARE ==
[~2022-01-23] VITALS: Ht 177.8 cm; Wt 98.4 kg
[~2022-01-23 07:53] MED LIST changes: +LIDOCAINE W/EPINEPHRINE 1% 20ML VIAL XX ONE; +MIDAZOLAM INJ 2MG/2ML VIAL (J2250 PER 1MG) As Ordered ONE; +ONDANSETRON 4MG 2ML VIAL As Ordered ONE; +SODIUM BICARBONATE 8.4% INJ 50MEQ 50 ML VIAL XX ONE; +dexameTHASONE 4 MG/ML 1ML VIAL (J1100 PER 1MG) As Ordered ONE; +fentaNYL 100 MCG/2 ML INJECTION As Ordered ONE; +propofoL 200 MG/20 ML VIAL As Ordered ONE
[2022-01-23] MEDS ORDERED: LR 1,000 ML IV SCH (08:05)
[2022-01-23] MEDS ORDERED: propofoL 200 MG/20 ML VIAL As Ordered ONE (08:47)
[2022-01-23] MEDS ORDERED: BUPIVACAINE HCL 0.25% 10ML VIAL As Ordered ONE (09:31)
[2022-01-23] MEDS ORDERED: BACITRACIN OINTMENT 30GM TUBE As Ordered ONE (10:25)
[2022-01-23 10:41] VITALS: BP 99/52
[2022-01-23] MEDS ORDERED: BACT800T5 PO (10:44)
== END 2022-01-23 11:35 | disposition home or self-care (01) ==
LOC: M SDC 07:53
PROVIDERS: ATTEND Orthopaedic Surgery Hand Surgery
DX: M79.5 Residual foreign body in soft tissue (principal); R01.0 Benign and innocent cardiac murmurs; Z79.899 Other long term (current) drug therapy; Z79.51 Long term (current) use of inhaled steroids; Z79.82 Long term (current) use of aspirin; Z99.81 Dependence on supplemental oxygen; Z88.0 Allergy status to penicillin; Z88.5 Allergy status to narcotic agent; Z88.8 Allergy status to other drugs, medicaments and biological substances; Z91.030 Bee allergy status
CPT/HCPCS: 20520; J1100; J2250; J2405; J3010

== ENCOUNTER → 2022-04-07 | Outpatient (CLI) | payer MEDICARE ==
[~2022-04-07] MED LIST changes: +BACT800T5 PO; +LEVO1TAB39 PO; -LEVO500T4 PO; -LIDOCAINE W/EPINEPHRINE 1% 20ML VIAL XX ONE; -MIDAZOLAM INJ 2MG/2ML VIAL (J2250 PER 1MG) As Ordered ONE; -ONDANSETRON 4MG 2ML VIAL As Ordered ONE; -SODIUM BICARBONATE 8.4% INJ 50MEQ 50 ML VIAL XX ONE; -dexameTHASONE 4 MG/ML 1ML VIAL (J1100 PER 1MG) As Ordered ONE; -fentaNYL 100 MCG/2 ML INJECTION As Ordered ONE; -propofoL 200 MG/20 ML VIAL As Ordered ONE
== END ==
LOC: M SOG 10:31
PROVIDERS: ATTEND Physician Assistant
DX: M25.561 Pain in right knee (principal); M25.511 Pain in right shoulder

== ENCOUNTER → 2022-04-23 | Outpatient (CLI) | payer MEDICARE | LOC: M PLAIMG 08:14 | PROVIDERS: ATTEND Orthopaedic Surgery Hand Surgery | DX: M75.21 Bicipital tendinitis, right shoulder (principal); M19.011 Primary osteoarthritis, right shoulder; M67.811 Other specified disorders of synovium, right shoulder ==

== ENCOUNTER 2023-01-18 22:35 | Inpatient (IN) | payer MEDICARE, OTHER, SELFPAY ==
[~2023-01-18] VITALS: Ht 177.8 cm; Wt 115.1 kg
[~2023-01-18 22:35] MED LIST changes: -DOXY-350 PO; +DOXY-444 PO; +INSU100I6 SC; -LEVE1INJ5 SC
[2023-01-18] MEDS ORDERED: IPRATROPIUM 0.5MG/ALBUTEROL 2.5MG INH SOL UD 3ML (DUONEB) NEB ONE (23:00)
[2023-01-18] MEDS ORDERED: ALBUTEROL SULFATE 2.5MG/0.5ML INH NEB SOLN INH ONE (23:00)
[2023-01-18 23:18] LABS: ABG BASE EXCESS 3.2 (-2.0-2.0); ABG O2 SATURATION 96.2 % (95.0-99.0); ABG PARTIAL PRESSURE CO2 48.2 mmHg (35.0-45.0); ABG STANDARD HCO3 27.3 MMOL/L. (22.0-26.0); ABG TOTAL CO2 30.5 MMOL/L (23.0-31.0); ABG pH (ARTERIAL) 7.397 UNITS (7.350-7.450)
[2023-01-18 23:28] LABS: ALBUMIN 3.2 G/DL (3.2-5.2); ALKALINE PHOSPHATASE 123 U/L (46-116); ALT/SGPT 14 U/L (7.0-40); AST/SGOT < 8 U/L (<34); BILIRUBIN,DIRECT 0.2 MG/DL (<0.4); BILIRUBIN,TOTAL 0.4 MG/DL (0.3-1.2); BLOOD UREA NITROGEN 13 MG/DL (9-23); CALCIUM LEVEL 9.9 MG/DL (8.3-10.6); CARBON DIOXIDE LEVEL 30 MMOL/L (20-31); CHLORIDE LEVEL 98 MMOL/L (98-107); CK-MB VALUE MASS 1.7 NG/ML (<3.6); CREATININE FOR GFR 0.77 MG/DL (0.70-1.30); GLOMERULAR FILTRATION RATE > 60.0 (>49); GLUCOSE, FASTING 344 MG/DL (74-106); POTASSIUM SERUM 4.4 MMOL/L (3.5-5.1); SODIUM LEVEL 134 MMOL/L (136-145); TOTAL PROTEIN 6.5 G/DL (5.7-8.2)
[2023-01-18 23:29] LABS: BASO # 0.1 10^3/uL (0.0-0.2); BASO % 0.7 % (0.0-1.0); EOS # 0.3 10^3/uL (0.0-0.5); EOS % 2.2 % (0.0-3.0); HEMATOCRIT 47.7 % (42.0-52.0); HEMOGLOBIN 15.5 g/dl (13.5-17.5); LYMPH # 1.6 10^3/uL (1.5-5.0); LYMPH % 10.6 % (24.0-44.0); MEAN CORPUSCULAR HEMOGLOBIN 28.5 pg (27.0-33.0); MEAN CORPUSCULAR HGB CONC 32.5 g/dl (32.0-36.5); MEAN CORPUSCULAR VOLUME 87.7 fl (80.0-96.0); MONO % 6.6 % (2.0-8.0); NEUTROPHILS # 11.8 10^3/uL (1.5-8.5); NEUTROPHILS % 79.4 % (36.0-66.0); PLATELET COUNT, AUTOMATED 413 10^3/uL (150-450); RED BLOOD COUNT 5.44 10^6/uL (4.30-6.10); WHITE BLOOD COUNT 14.8 10^3/uL (4.0-10.0)
[2023-01-18 23:30] LABS: THYROID STIMULATING HORMONE 1.847 uIU/ML (0.55-4.78)
[2023-01-18 23:40] LABS: PROCALCITONIN 0.07 ng/ml
[2023-01-18 23:41] LABS: CPK CREATINE PHOSPHOKINASE 66 U/L (46-171); MB/CK RELATIVE INDEX 2.57 (< OR =4)
[2023-01-18 23:45] LABS: INR 1.02; PROTHROMBIN TIME 13.6 SECONDS (12.5-14.5)
[2023-01-19] MEDS ORDERED: LevoFLOXacin IV 750 MG in IV 1 EA IV ONE ×2
[2023-01-19] MEDS ORDERED: MED REC IN PROGRESS XX SCH (00:40)
[2023-01-19 00:58] LABS: MB/CK RELATIVE INDEX 2.98 (< OR =4)
[2023-01-19] MEDS ORDERED: HYDR-4571 PO (02:15)
[2023-01-19] MEDS ORDERED: FLOM0.4C39 PO (02:15)
[2023-01-19] MEDS ORDERED: SYMB16INH INH (02:15)
[2023-01-19] MEDS ORDERED: PREG50CA PO (02:15)
[2023-01-19] MEDS ORDERED: ALBU8.5H INH (02:15)
[2023-01-19] MEDS ORDERED: HOME MED LIST COMPLETE! XX SCH (02:15)
[2023-01-19] MEDS ORDERED: DULO1CAP5 PO (02:15)
[2023-01-19] MEDS ORDERED: METO1TAB87 PO (02:15)
[2023-01-19] MEDS ORDERED: ATOR1TAB19 PO (02:15)
[2023-01-19] MEDS ORDERED: EPIP0.3I2 IM (02:15)
[2023-01-19] MEDS ORDERED: KETO2CR EXT (02:15)
[2023-01-19] MEDS ORDERED: LEVA1.2525 INH (02:15)
[2023-01-19] MEDS ORDERED: DULO30CA9 PO (02:15)
[2023-01-19] MEDS ORDERED: SPIR12.9 INH (02:15)
[2023-01-19] MEDS ORDERED: IPRATROPIUM 0.5MG/ALBUTEROL 2.5MG INH SOL UD 3ML (DUONEB) NEB ONE (02:55)
[2023-01-19] MEDS ORDERED: ALBUTEROL SULFATE 2.5MG/0.5ML INH NEB SOLN INH ONE (02:55)
[2023-01-19] MEDS ORDERED: ACETAMINOPHEN TAB 650MG DOSE (2X325MG) PO PRN (04:25)
[2023-01-19] MEDS ORDERED: guaiFENesin SYRUP 200MG 10ML UDC PO PRN (04:25)
[2023-01-19] MEDS ORDERED: PERCOCET 5MG/325MG TAB PO PRN (04:25)
[2023-01-19] MEDS ORDERED: GLUCOSE 4GM CHEW TABLET PO PRN (05:05)
[2023-01-19] MEDS ORDERED: DEXTROSE 50% 50ML SYRINGE IV PRN (05:05)
[2023-01-19] MEDS ORDERED: GLUCAGON INJ 1MG VIAL SC PRN (05:05)
[2023-01-19] MEDS ORDERED: BENZOCAINE 10% 9GM TUBE (ANBESOL) TOP PRN (05:15)
[2023-01-19 05:53] VITALS: BP 139/75; TEMP 97.9; O2SAT 94
[2023-01-19] MEDS: methylPREDNISolone 40MG 1ML VIAL IV SCH ×3 (06:28→22:16)
[2023-01-19 07:33] LABS: BASO % 0.3 % (0.0-1.0); HEMATOCRIT 48.3 % (42.0-52.0); HEMOGLOBIN 15.7 g/dl (13.5-17.5); LYMPH # 0.6 10^3/uL (1.5-5.0); LYMPH % 4.8 % (24.0-44.0); MEAN CORPUSCULAR HEMOGLOBIN 28.5 pg (27.0-33.0); MEAN CORPUSCULAR HGB CONC 32.5 g/dl (32.0-36.5); MEAN CORPUSCULAR VOLUME 87.7 fl (80.0-96.0); MONO # 0.1 10^3/uL (0.0-0.8); MONO % 1.1 % (2.0-8.0); NEUTROPHILS # 11.5 10^3/uL (1.5-8.5); PLATELET COUNT, AUTOMATED 448 10^3/uL (150-450); RED BLOOD COUNT 5.51 10^6/uL (4.30-6.10); WHITE BLOOD COUNT 12.4 10^3/uL (4.0-10.0)
[2023-01-19 07:39] LABS: HEMOGLOBIN A1c 10.4 % (4.0-6.0)
[2023-01-19 07:47] LABS: BLOOD UREA NITROGEN 15 MG/DL (9-23); CALCIUM LEVEL 9.2 MG/DL (8.3-10.6); CARBON DIOXIDE LEVEL 25 MMOL/L (20-31); CHLORIDE LEVEL 98 MMOL/L (98-107); CREATININE FOR GFR 0.76 MG/DL (0.70-1.30); GLOMERULAR FILTRATION RATE > 60.0 (>49); GLUCOSE, FASTING 377 MG/DL (74-106); POTASSIUM SERUM 5.1 MMOL/L (3.5-5.1); SODIUM LEVEL 135 MMOL/L (136-145)
[2023-01-19] MEDS: TIOTROPIUM INHALER/CAPSULE (SPIRIVA) INH SCH ×2 (08:00→08:16)
[2023-01-19] MEDS: SYMBICORT 160/4.5MCG INHALER 6GM INH SCH ×2 (08:17→19:41)
[2023-01-19] MEDS: LEVALBUTEROL 1.25MG/3ML NEB SOLN INH SCH ×3 (08:17→19:41)
[2023-01-19] MEDS: IPRATROPIUM 0.02% SOLN 0.5MG 2.5ML NEB NEB SCH ×3 (08:17→19:41)
[2023-01-19] MEDS: PANTOPRAZOLE 40MG TAB (PROTONIX) PO SCH (08:59)
[2023-01-19] MEDS: PREGABALIN 50 MG CAP (LYRICA) PO SCH ×2 (09:00→20:51)
[2023-01-19] MEDS: METOPROLOL TART 25 MG TABLET PO SCH ×2 (09:00→20:51)
[2023-01-19] MEDS: DULoxetine 30MG CAPSULE (CYMBALTA) PO SCH ×2 (09:00→20:51)
[2023-01-19] MEDS: NORCO, ANEXSIA 5/325MG TABLET (HYDROcodone/ACETAMINOPHEN) PO PRN ×2 (09:00→20:53)
[2023-01-19] MEDS: TAMSULOSIN 0.4 MG CAP PO SCH ×2 (09:00→20:50)
[2023-01-19] MEDS: INSULIN LISPRO (NovoLOG) PER UNIT SC SCH ×6 (09:01→22:17)
[2023-01-19] MEDS: ENOXAPARIN 40MG/0.4ML SYRINGE (J1650 PER 10MG) SC SCH (09:01)
[2023-01-19] MEDS ORDERED: NS 500 ML IV ONE (10:00)
[2023-01-19 12:12] LABS: PROCALCITONIN <0.04 ng/ml
[2023-01-19] MEDS ORDERED: ISOVUE-370 76% 100ML VIAL As Ordered ONE (13:01)
[2023-01-19 14:00] VITALS: BP 121/69; TEMP 97.9; O2SAT 95
[2023-01-19] MEDS: AZITHROMYCIN 250MG TABLET PO SCH (18:29)
[2023-01-19 20:50] VITALS: BP 120/85; TEMP 98; O2SAT 94
[2023-01-19] MEDS: ATORVASTATIN 10 MG TAB PO SCH (20:51)
[2023-01-19] MEDS ORDERED: LEVEMIR (INSULIN DETEMIR) 1 UNITS/0.01ML SC SCH (21:00)
[2023-01-19] MEDS ORDERED: LevoFLOXacin IV 750 MG in IV 1 EA IV SCH (23:00)
[2023-01-20] MEDS: IPRATROPIUM 0.02% SOLN 0.5MG 2.5ML NEB NEB SCH ×4 (02:55→19:28)
[2023-01-20] MEDS: LEVALBUTEROL 1.25MG/3ML NEB SOLN INH SCH ×4 (02:55→19:28)
[2023-01-20 05:20] VITALS: BP 99/62; TEMP 97.9; O2SAT 95
[2023-01-20 05:34] VITALS: BP 102/58
[2023-01-20] MEDS: methylPREDNISolone 40MG 1ML VIAL IV SCH (05:50)
[2023-01-20 06:07] LABS: HEMATOCRIT 45.7 % (42.0-52.0); HEMOGLOBIN 14.7 g/dl (13.5-17.5); MEAN CORPUSCULAR HEMOGLOBIN 28.4 pg (27.0-33.0); MEAN CORPUSCULAR HGB CONC 32.2 g/dl (32.0-36.5); MEAN CORPUSCULAR VOLUME 88.2 fl (80.0-96.0); PLATELET COUNT, AUTOMATED 453 10^3/uL (150-450); RED BLOOD COUNT 5.18 10^6/uL (4.30-6.10); WHITE BLOOD COUNT 17.7 10^3/uL (4.0-10.0)
[2023-01-20] MEDS: TIOTROPIUM INHALER/CAPSULE (SPIRIVA) INH SCH (07:34)
[2023-01-20] MEDS: SYMBICORT 160/4.5MCG INHALER 6GM INH SCH ×2 (07:34→19:28)
[2023-01-20 07:54] LABS: BLOOD UREA NITROGEN 20 MG/DL (9-23); CALCIUM LEVEL 9.4 MG/DL (8.3-10.6); CARBON DIOXIDE LEVEL 27 MMOL/L (20-31); CHLORIDE LEVEL 103 MMOL/L (98-107); CREATININE FOR GFR 0.77 MG/DL (0.70-1.30); GLOMERULAR FILTRATION RATE > 60.0 (>49); GLUCOSE, FASTING 344 MG/DL (74-106); POTASSIUM SERUM 5.1 MMOL/L (3.5-5.1); SODIUM LEVEL 136 MMOL/L (136-145)
[2023-01-20] MEDS: INSULIN LISPRO (NovoLOG) PER UNIT SC SCH ×7 (08:22→22:03)
[2023-01-20] MEDS: PANTOPRAZOLE 40MG TAB (PROTONIX) PO SCH (08:23)
[2023-01-20] MEDS: TAMSULOSIN 0.4 MG CAP PO SCH ×2 (08:23→22:02)
[2023-01-20] MEDS: DULoxetine 30MG CAPSULE (CYMBALTA) PO SCH ×2 (08:23→22:02)
[2023-01-20] MEDS: PREGABALIN 50 MG CAP (LYRICA) PO SCH ×2 (08:23→22:02)
[2023-01-20] MEDS: ENOXAPARIN 40MG/0.4ML SYRINGE (J1650 PER 10MG) SC SCH (08:24)
[2023-01-20] MEDS: METOPROLOL TART 25 MG TABLET PO SCH ×2 (08:24→22:04)
[2023-01-20] MEDS: NORCO, ANEXSIA 5/325MG TABLET (HYDROcodone/ACETAMINOPHEN) PO PRN ×3 (08:25→22:07)
[2023-01-20 10:12] VITALS: O2SAT 87
[2023-01-20 10:13] VITALS: O2SAT 93
[2023-01-20] MEDS: predniSONE 20 MG TAB PO SCH (10:27)
[2023-01-20] MEDS: LEVEMIR (INSULIN DETEMIR) 1 UNITS/0.01ML SC SCH ×2 (10:27→22:03)
[2023-01-20] MEDS ORDERED: FLAS1KIT MC (11:39)
[2023-01-20] MEDS ORDERED: SEMA0.257 SQ (11:39)
[2023-01-20] MEDS ORDERED: FLAS1EAC MC (11:39)
[2023-01-20] MEDS ORDERED: TRUL10IN SC (11:39)
[2023-01-20 14:00] VITALS: BP 122/77; TEMP 98.2; O2SAT 94
[2023-01-20] MEDS: AZITHROMYCIN 250MG TABLET PO SCH (18:17)
[2023-01-20 22:00] VITALS: BP 122/68; TEMP 97.5; O2SAT 94
[2023-01-20] MEDS: ATORVASTATIN 10 MG TAB PO SCH (22:02)
[2023-01-21] MEDS: IPRATROPIUM 0.02% SOLN 0.5MG 2.5ML NEB NEB SCH ×4 (01:22→19:29)
[2023-01-21] MEDS: LEVALBUTEROL 1.25MG/3ML NEB SOLN INH SCH ×4 (01:22→19:29)
[2023-01-21 05:21] VITALS: BP 121/80; TEMP 97.7; O2SAT 96
[2023-01-21 06:01] LABS: HEMATOCRIT 43.3 % (42.0-52.0); HEMOGLOBIN 14.1 g/dl (13.5-17.5); MEAN CORPUSCULAR HEMOGLOBIN 28.9 pg (27.0-33.0); MEAN CORPUSCULAR HGB CONC 32.6 g/dl (32.0-36.5); MEAN CORPUSCULAR VOLUME 88.7 fl (80.0-96.0); PLATELET COUNT, AUTOMATED 421 10^3/uL (150-450); RED BLOOD COUNT 4.88 10^6/uL (4.30-6.10)
[2023-01-21 06:28] LABS: BLOOD UREA NITROGEN 24 MG/DL (9-23); CALCIUM LEVEL 8.3 MG/DL (8.3-10.6); CARBON DIOXIDE LEVEL 29 MMOL/L (20-31); CHLORIDE LEVEL 104 MMOL/L (98-107); CREATININE FOR GFR 0.81 MG/DL (0.70-1.30); GLOMERULAR FILTRATION RATE > 60.0 (>49); GLUCOSE, FASTING 232 MG/DL (74-106); SODIUM LEVEL 140 MMOL/L (136-145)
[2023-01-21 07:42] VITALS: O2SAT 97
[2023-01-21] MEDS: SYMBICORT 160/4.5MCG INHALER 6GM INH SCH ×2 (07:42→19:29)
[2023-01-21] MEDS: TIOTROPIUM INHALER/CAPSULE (SPIRIVA) INH SCH (08:00)
[2023-01-21 08:20] VITALS: BP 90/62
[2023-01-21] MEDS: INSULIN LISPRO (NovoLOG) PER UNIT SC SCH ×7 (08:26→21:40)
[2023-01-21] MEDS: PANTOPRAZOLE 40MG TAB (PROTONIX) PO SCH (08:27)
[2023-01-21] MEDS: TAMSULOSIN 0.4 MG CAP PO SCH ×2 (08:27→21:37)
[2023-01-21] MEDS: DULoxetine 30MG CAPSULE (CYMBALTA) PO SCH ×2 (08:27→21:36)
[2023-01-21] MEDS: PREGABALIN 50 MG CAP (LYRICA) PO SCH ×2 (08:27→21:38)
[2023-01-21] MEDS: predniSONE 20 MG TAB PO SCH (08:27)
[2023-01-21] MEDS: LEVEMIR (INSULIN DETEMIR) 1 UNITS/0.01ML SC SCH ×2 (08:27→21:41)
[2023-01-21] MEDS: ENOXAPARIN 40MG/0.4ML SYRINGE (J1650 PER 10MG) SC SCH (08:28)
[2023-01-21] MEDS: METOPROLOL TART 25 MG TABLET PO SCH ×2 (09:00→21:39)
[2023-01-21] MEDS ORDERED: SODIUM CHLORIDE 0.9% 1000ML IV ONE (09:00)
[2023-01-21 09:58] VITALS: BP 109/62
[2023-01-21] MEDS ORDERED: BASA100I SC (13:31)
[2023-01-21] MEDS ORDERED: PRED10TA2 PO (13:31)
[2023-01-21] MEDS ORDERED: FLAS1EAC MC (13:31)
[2023-01-21] MEDS ORDERED: SEMA0.257 SQ (13:31)
[2023-01-21] MEDS ORDERED: FLAS1KIT MC (13:31)
[2023-01-21] MEDS ORDERED: METF500T13 PO (13:31)
[2023-01-21] MEDS ORDERED: PEN1MIS15 SC (13:31)
[2023-01-21 15:00] VITALS: BP 118/70; TEMP 97.9; O2SAT 91
[2023-01-21] MEDS: NORCO, ANEXSIA 5/325MG TABLET (HYDROcodone/ACETAMINOPHEN) PO PRN ×2 (15:16→21:38)
[2023-01-21] MEDS: AZITHROMYCIN 250MG TABLET PO SCH (17:45)
[2023-01-21 20:02] VITALS: BP 119/87; TEMP 97.9; O2SAT 94
[2023-01-21] MEDS: ATORVASTATIN 10 MG TAB PO SCH (21:39)
[2023-01-22] MEDS: LEVALBUTEROL 1.25MG/3ML NEB SOLN INH SCH ×2 (02:00→07:53)
[2023-01-22] MEDS: IPRATROPIUM 0.02% SOLN 0.5MG 2.5ML NEB NEB SCH ×2 (02:00→07:53)
[2023-01-22] MEDS ORDERED: IPRATROPIUM 0.5MG/ALBUTEROL 2.5MG INH SOL UD 3ML (DUONEB) NEB ONE (05:25)
[2023-01-22 05:44] VITALS: BP 127/91; TEMP 97.5; O2SAT 94
[2023-01-22 06:03] LABS: BASO % 0.2 % (0.0-1.0); EOS # 0.1 10^3/uL (0.0-0.5); EOS % 0.6 % (0.0-3.0); HEMATOCRIT 43.4 % (42.0-52.0); LYMPH % 15.6 % (24.0-44.0); MEAN CORPUSCULAR HEMOGLOBIN 28.5 pg (27.0-33.0); MEAN CORPUSCULAR HGB CONC 32.3 g/dl (32.0-36.5); MEAN CORPUSCULAR VOLUME 88.4 fl (80.0-96.0); MONO # 0.8 10^3/uL (0.0-0.8); MONO % 6.5 % (2.0-8.0); NEUTROPHILS # 9.6 10^3/uL (1.5-8.5); NEUTROPHILS % 76.3 % (36.0-66.0); PLATELET COUNT, AUTOMATED 435 10^3/uL (150-450); RED BLOOD COUNT 4.91 10^6/uL (4.30-6.10); WHITE BLOOD COUNT 12.6 10^3/uL (4.0-10.0)
[2023-01-22 06:21] LABS: BLOOD UREA NITROGEN 19 MG/DL (9-23); CARBON DIOXIDE LEVEL 30 MMOL/L (20-31); CHLORIDE LEVEL 105 MMOL/L (98-107); CREATININE FOR GFR 0.77 MG/DL (0.70-1.30); GLOMERULAR FILTRATION RATE > 60.0 (>49); GLUCOSE, FASTING 172 MG/DL (74-106); POTASSIUM SERUM 3.9 MMOL/L (3.5-5.1); SODIUM LEVEL 141 MMOL/L (136-145)
[2023-01-22] MEDS: SYMBICORT 160/4.5MCG INHALER 6GM INH SCH (07:38)
[2023-01-22] MEDS: TIOTROPIUM INHALER/CAPSULE (SPIRIVA) INH SCH (07:53)
[2023-01-22 08:21] VITALS: BP 127/91
[2023-01-22] MEDS: METOPROLOL TART 25 MG TABLET PO SCH (08:21)
[2023-01-22] MEDS: TAMSULOSIN 0.4 MG CAP PO SCH (08:21)
[2023-01-22] MEDS: predniSONE 20 MG TAB PO SCH (08:21)
[2023-01-22] MEDS: NORCO, ANEXSIA 5/325MG TABLET (HYDROcodone/ACETAMINOPHEN) PO PRN (08:21)
[2023-01-22] MEDS: DULoxetine 30MG CAPSULE (CYMBALTA) PO SCH (08:21)
[2023-01-22] MEDS: PREGABALIN 50 MG CAP (LYRICA) PO SCH (08:22)
[2023-01-22] MEDS: PANTOPRAZOLE 40MG TAB (PROTONIX) PO SCH (08:22)
[2023-01-22] MEDS: INSULIN LISPRO (NovoLOG) PER UNIT SC SCH ×4 (08:22→12:52)
[2023-01-22] MEDS: ENOXAPARIN 40MG/0.4ML SYRINGE (J1650 PER 10MG) SC SCH (08:23)
[2023-01-22] MEDS: LEVEMIR (INSULIN DETEMIR) 1 UNITS/0.01ML SC SCH (08:23)
[2023-01-22] MEDS ORDERED: INSU100I14 SQ (10:11)
[2023-01-22] MEDS ORDERED: IPRA0.00 INH (11:58)
[2023-01-22] MEDS ORDERED: PRED20TA PO (11:58)
[2023-01-22] MEDS ORDERED: MUCI600T31 PO (12:02)
[2023-01-22 14:09] LABS: BODY FLUID CULTURE Not indicated. (.); LEGIONELLA ANTIGEN URINE Negative (Negative); ORGANISM ID Not indicated. (.); SPECIMEN SOURCE Urine (.); URINE STREP PNEUMONIAE ANTIGEN Negative (Negative)
== END 2023-01-22 13:32 | disposition home health service (06) | DRG 193 ==
LOC: M ED 22:35 → M ED INP 01-19 04:23 → M MSPAV 01-19 05:53
PROVIDERS: ADMIT Internal Medicine; ATTEND Internal Medicine
DX: J18.9 Pneumonia, unspecified organism (principal); J96.21 Acute and chronic respiratory failure with hypoxia; J44.1 Chronic obstructive pulmonary disease with (acute) exacerbation; J44.0 Chronic obstructive pulmonary disease with (acute) lower respiratory infection; I50.9 Heart failure, unspecified; I11.0 Hypertensive heart disease with heart failure; E78.5 Hyperlipidemia, unspecified; E11.42 Type 2 diabetes mellitus with diabetic polyneuropathy; R07.89 Other chest pain; R91.1 Solitary pulmonary nodule; F41.9 Anxiety disorder, unspecified; F32.A Depression, unspecified; E66.9 Obesity, unspecified; N40.0 Benign prostatic hyperplasia without lower urinary tract symptoms; E11.65 Type 2 diabetes mellitus with hyperglycemia; K21.9 Gastro-esophageal reflux disease without esophagitis; Z99.81 Dependence on supplemental oxygen; Z87.891 Personal history of nicotine dependence; Z79.899 Other long term (current) drug therapy; Z88.0 Allergy status to penicillin; Z88.5 Allergy status to narcotic agent; Z88.6 Allergy status to analgesic agent; Z88.8 Allergy status to other drugs, medicaments and biological substances; Z91.030 Bee allergy status; Z68.36 Body mass index [BMI] 36.0-36.9, adult

== ENCOUNTER 2023-03-22 10:06 | Observation (INO) | payer MEDICARE, OTHER, SELFPAY ==
[~2023-03-22] VITALS: Ht 177.8 cm; Wt 111.9 kg
[~2023-03-22 10:06] MED LIST changes: +ALBU8.5H INH; +BASA100I SC; -CELE1CAP7 PO; +CELE1CAP8 PO; +EPIP0.3I2 IM; +FLAS1EAC MC; +FLAS1KIT MC; +HYDR-4571 PO; +INSU100I14 SQ; +KETO2CR EXT; +LEVA1.2525 INH; +PEN1MIS15 SC; +PREG50CA PO; -PREG50CA2 PO; +PREG50CA3 PO; +SEMA0.257 SQ; +SPIR12.9 INH; +TRUL10IN SC
[2023-03-22 10:30] LABS: ABG BASE EXCESS -0.3 (-2.0-2.0); ABG HCO3 25.9 MMOL/L (22.0-26.0); ABG O2 SATURATION 97.1 % (95.0-99.0); ABG PARTIAL PRESSURE CO2 47.8 mmHg (35.0-45.0); ABG PARTIAL PRESSURE O2 91.9 mmHg (75.0-100.0); ABG STANDARD HCO3 24.2 MMOL/L. (22.0-26.0); ABG TOTAL CO2 27.3 MMOL/L (23.0-31.0); ABG pH (ARTERIAL) 7.351 UNITS (7.350-7.450)
[2023-03-22] MEDS ORDERED: INSU100I12 PO (10:33)
[2023-03-22] MEDS ORDERED: BUDE10.7 IH (10:33)
[2023-03-22] MEDS ORDERED: methylPREDNISolone 40MG 1ML VIAL IV ONE (10:35)
[2023-03-22] MEDS ORDERED: ALBUTEROL SULFATE 2.5MG/0.5ML INH NEB SOLN INH ONE (10:35)
[2023-03-22] MEDS ORDERED: IPRATROPIUM 0.5MG/ALBUTEROL 2.5MG INH SOL UD 3ML (DUONEB) NEB ONE (10:35)
[2023-03-22] MEDS ORDERED: MORP1SOL5 PO (10:39)
[2023-03-22 10:41] LABS: BASO # 0.1 10^3/uL (0.0-0.2); BASO % 0.6 % (0.0-1.0); EOS # 0.6 10^3/uL (0.0-0.5); EOS % 3.2 % (0.0-3.0); LYMPH # 1.5 10^3/uL (1.5-5.0); LYMPH % 8.5 % (24.0-44.0); MEAN CORPUSCULAR HEMOGLOBIN 28.6 pg (27.0-33.0); MEAN CORPUSCULAR HGB CONC 31.9 g/dl (32.0-36.5); MEAN CORPUSCULAR VOLUME 89.5 fl (80.0-96.0); MONO # 1.1 10^3/uL (0.0-0.8); MONO % 6.3 % (2.0-8.0); NEUTROPHILS # 14.5 10^3/uL (1.5-8.5); NEUTROPHILS % 80.8 % (36.0-66.0); PLATELET COUNT, AUTOMATED 390 10^3/uL (150-450); RED BLOOD COUNT 5.25 10^6/uL (4.30-6.10); WHITE BLOOD COUNT 17.9 10^3/uL (4.0-10.0)
[2023-03-22 10:56] LABS: INR 0.97; PROTHROMBIN TIME 12.6 SECONDS (12.5-14.5)
[2023-03-22 11:09] LABS: ALBUMIN 3.2 G/DL (3.2-5.2); ALKALINE PHOSPHATASE 103 U/L (46-116); ALT/SGPT 15 U/L (7.0-40); AST/SGOT 9 U/L (<34); BILIRUBIN,DIRECT < 0.1 MG/DL (<0.4); BILIRUBIN,TOTAL 0.3 MG/DL (0.3-1.2); BLOOD UREA NITROGEN 20 MG/DL (9-23); CALCIUM LEVEL 8.7 MG/DL (8.3-10.6); CARBON DIOXIDE LEVEL 31 MMOL/L (20-31); CHLORIDE LEVEL 102 MMOL/L (98-107); CK-MB VALUE MASS 1.4 NG/ML (<3.6); GLOMERULAR FILTRATION RATE > 60.0 (>49); GLUCOSE, FASTING 297 MG/DL (74-106); POTASSIUM SERUM 4.3 MMOL/L (3.5-5.1); SODIUM LEVEL 141 MMOL/L (136-145); TOTAL PROTEIN 6.8 G/DL (5.7-8.2)
[2023-03-22 11:10] LABS: THYROXINE (T4) 5.9 UG/DL (4.5-10.9)
[2023-03-22 11:12] LABS: CPK CREATINE PHOSPHOKINASE 50 U/L (46-171)
[2023-03-22] MEDS ORDERED: MED REC IN PROGRESS XX SCH (11:25)
[2023-03-22] MEDS ORDERED: MORP15TA2 PO (11:47)
[2023-03-22] MEDS ORDERED: HOME MED LIST COMPLETE! XX SCH (11:55)
[2023-03-22 12:21] LABS: CK-MB VALUE MASS 2.2 NG/ML (<3.6)
[2023-03-22] MEDS ORDERED: ISOVUE-370 76% 100ML VIAL As Ordered ONE (12:43)
[2023-03-22 12:47] LABS: PROCALCITONIN 0.09 ng/ml
[2023-03-22] MEDS ORDERED: ACETAMINOPHEN TAB 650MG DOSE (2X325MG) PO PRN (15:25)
[2023-03-22] MEDS ORDERED: DEXTROSE 50% 50ML SYRINGE IV PRN (15:25)
[2023-03-22] MEDS ORDERED: ALBUTEROL SULFATE 2.5MG/0.5ML INH NEB SOLN NEB PRN (15:25)
[2023-03-22] MEDS ORDERED: GLUCOSE 4GM CHEW TABLET PO PRN (15:25)
[2023-03-22] MEDS ORDERED: GLUCAGON INJ 1MG VIAL SC PRN (15:25)
[2023-03-22 16:45] VITALS: BP 120/86; TEMP 97.7; O2SAT 94
[2023-03-22] MEDS: INSULIN LISPRO (NovoLOG) PER UNIT SC SCH (17:50)
[2023-03-22] MEDS: methylPREDNISolone 40MG 1ML VIAL IV SCH (17:50)
[2023-03-22] MEDS: SYMBICORT 160/4.5MCG INHALER 6GM INH SCH (19:10)
[2023-03-22] MEDS: IPRATROPIUM 0.5MG/ALBUTEROL 2.5MG INH SOL UD 3ML (DUONEB) NEB SCH (19:10)
[2023-03-22] MEDS ORDERED: ALBUTEROL SULFATE 2.5MG/0.5ML INH NEB SOLN NEB SCH (20:00)
[2023-03-22] MEDS: TAMSULOSIN 0.4 MG CAP PO SCH (20:55)
[2023-03-22] MEDS: PREGABALIN 50 MG CAP (LYRICA) PO SCH (20:56)
[2023-03-22] MEDS: METOPROLOL TART 25 MG TABLET PO SCH (20:57)
[2023-03-22 21:00] VITALS: BP 118/81; TEMP 98.1; O2SAT 94
[2023-03-22] MEDS ORDERED: INSULIN LISPRO (NovoLOG) PER UNIT SC SCH (21:00)
[2023-03-22] MEDS ORDERED: ATORVASTATIN 10 MG TAB PO SCH (21:00)
[2023-03-22] MEDS ORDERED: DULoxetine 30MG CAPSULE (CYMBALTA) PO SCH (21:00)
[2023-03-22] MEDS ORDERED: MORPHINE 30 MG TAB **MSIR PO ONE (22:10)
[2023-03-22] MEDS: NORCO, ANEXSIA 5/325MG TABLET (HYDROcodone/ACETAMINOPHEN) PO PRN (23:57)
[2023-03-23] MEDS: IPRATROPIUM 0.5MG/ALBUTEROL 2.5MG INH SOL UD 3ML (DUONEB) NEB SCH ×3 (02:54→13:18)
[2023-03-23] MEDS: methylPREDNISolone 40MG 1ML VIAL IV SCH ×2 (03:01→10:50)
[2023-03-23 05:54] LABS: BASO % 0.1 % (0.0-1.0); HEMATOCRIT 40.9 % (42.0-52.0); LYMPH # 0.9 10^3/uL (1.5-5.0); LYMPH % 5.3 % (24.0-44.0); MEAN CORPUSCULAR HGB CONC 31.8 g/dl (32.0-36.5); MEAN CORPUSCULAR VOLUME 88.1 fl (80.0-96.0); MONO # 0.4 10^3/uL (0.0-0.8); MONO % 2.2 % (2.0-8.0); NEUTROPHILS # 14.9 10^3/uL (1.5-8.5); NEUTROPHILS % 91.7 % (36.0-66.0); PLATELET COUNT, AUTOMATED 370 10^3/uL (150-450); RED BLOOD COUNT 4.64 10^6/uL (4.30-6.10); WHITE BLOOD COUNT 16.2 10^3/uL (4.0-10.0)
[2023-03-23 06:00] VITALS: BP 101/69; TEMP 98.6; O2SAT 96
[2023-03-23 06:15] LABS: BLOOD UREA NITROGEN 17 MG/DL (9-23); CALCIUM LEVEL 8.3 MG/DL (8.3-10.6); CARBON DIOXIDE LEVEL 30 MMOL/L (20-31); CHLORIDE LEVEL 103 MMOL/L (98-107); CREATININE FOR GFR 0.68 MG/DL (0.70-1.30); GLOMERULAR FILTRATION RATE > 60.0 (>49); GLUCOSE, FASTING 272 MG/DL (74-106); MAGNESIUM LEVEL 1.9 MG/DL (1.8-2.4); POTASSIUM SERUM 4.7 MMOL/L (3.5-5.1); SODIUM LEVEL 138 MMOL/L (136-145)
[2023-03-23] MEDS: TIOTROPIUM INHALER/CAPSULE (SPIRIVA) INH SCH ×2 (08:00→08:30)
[2023-03-23] MEDS ORDERED: RIVAROXABAN 10MG TAB (XARELTO) PO SCH (08:00)
[2023-03-23] MEDS: PREGABALIN 50 MG CAP (LYRICA) PO SCH (08:10)
[2023-03-23] MEDS: TAMSULOSIN 0.4 MG CAP PO SCH (08:10)
[2023-03-23] MEDS: INSULIN LISPRO (NovoLOG) PER UNIT SC SCH ×2 (08:11→12:45)
[2023-03-23 08:13] VITALS: BP 103/64
[2023-03-23] MEDS: METOPROLOL TART 25 MG TABLET PO SCH (08:13)
[2023-03-23] MEDS: SYMBICORT 160/4.5MCG INHALER 6GM INH SCH (08:30)
[2023-03-23] MEDS ORDERED: PANTOPRAZOLE 40MG VIAL IV SCH (09:00)
[2023-03-23] MEDS ORDERED: DULoxetine 30MG CAPSULE (CYMBALTA) PO SCH (09:00)
[2023-03-23] MEDS: NORCO, ANEXSIA 5/325MG TABLET (HYDROcodone/ACETAMINOPHEN) PO PRN (10:49)
[2023-03-23] MEDS ORDERED: PRED10TA2 PO (13:38)
[2023-03-23] MEDS ORDERED: INSU100I14 SQ (13:38)
[2023-03-23 14:00] VITALS: BP 115/68; TEMP 99; O2SAT 97
[2023-03-23] MEDS ORDERED: MORPHINE 30 MG TAB **MSIR PO SCH (21:00)
== END 2023-03-23 15:18 | disposition home or self-care (01) ==
LOC: M ED 10:06 → EDBD 10:06 → M ED INP 10:07 → ENRESERV 16:01 → M MSPAV 16:44
PROVIDERS: ADMIT Internal Medicine; ATTEND Internal Medicine
DX: J44.1 Chronic obstructive pulmonary disease with (acute) exacerbation (principal); J96.11 Chronic respiratory failure with hypoxia; Z99.81 Dependence on supplemental oxygen; E78.5 Hyperlipidemia, unspecified; F41.9 Anxiety disorder, unspecified; F32.A Depression, unspecified; G50.0 Trigeminal neuralgia; G89.29 Other chronic pain; N40.0 Benign prostatic hyperplasia without lower urinary tract symptoms; E11.42 Type 2 diabetes mellitus with diabetic polyneuropathy; E66.9 Obesity, unspecified; Z68.34 Body mass index [BMI] 34.0-34.9, adult; E78.00 Pure hypercholesterolemia, unspecified; R05.3 Chronic cough; R53.83 Other fatigue; D72.829 Elevated white blood cell count, unspecified; I50.30 Unspecified diastolic (congestive) heart failure; I11.0 Hypertensive heart disease with heart failure; Z88.0 Allergy status to penicillin; Z88.5 Allergy status to narcotic agent; Z88.8 Allergy status to other drugs, medicaments and biological substances; Z91.030 Bee allergy status; Z79.899 Other long term (current) drug therapy; Z79.51 Long term (current) use of inhaled steroids; Z79.4 Long term (current) use of insulin; Z87.891 Personal history of nicotine dependence
CPT/HCPCS: 36415; 36600; 71045; 71275; 80047; 80048; 80076; 82550; 82553; 82803; 83605; 83735; 83880; 84145; 84436; 84443; 84484; 85025; 85610; 87040; 87486; 87581; 87633; 87798; 93005; 93041; 94640; 94760; 96374; 96375; 96376; 99285; C9113; G0378; J1815; J2920; Q9967

== ENCOUNTER 2023-04-17 21:54 | Inpatient (IN) | payer MEDICARE ==
[~2023-04-17] VITALS: Ht 177.8 cm; Wt 109.5 kg
[~2023-04-17 21:54] MED LIST changes: +BUDE10.7 IH; +INSU100I12 PO; +MORP15TA2 PO; +MORP1SOL5 PO
[2023-04-17] MEDS ORDERED: IPRATROPIUM 0.5MG/ALBUTEROL 2.5MG INH SOL UD 3ML (DUONEB) NEB ONE (22:20)
[2023-04-17 22:34] LABS: ABG BASE EXCESS 4.7 (-2.0-2.0); ABG HCO3 30.8 MMOL/L (22.0-26.0); ABG PARTIAL PRESSURE CO2 51.6 mmHg (35.0-45.0); ABG STANDARD HCO3 28.6 MMOL/L. (22.0-26.0); ABG TOTAL CO2 32.4 MMOL/L (23.0-31.0); ABG pH (ARTERIAL) 7.394 UNITS (7.350-7.450)
[2023-04-17 22:38] LABS: BASO # 0.1 10^3/uL (0.0-0.2); BASO % 0.7 % (0.0-1.0); EOS # 0.4 10^3/uL (0.0-0.5); EOS % 3.5 % (0.0-3.0); HEMATOCRIT 42.9 % (42.0-52.0); HEMOGLOBIN 13.6 g/dl (13.5-17.5); LYMPH # 0.8 10^3/uL (1.5-5.0); LYMPH % 7.9 % (24.0-44.0); MEAN CORPUSCULAR HEMOGLOBIN 28.8 pg (27.0-33.0); MEAN CORPUSCULAR HGB CONC 31.7 g/dl (32.0-36.5); MEAN CORPUSCULAR VOLUME 90.9 fl (80.0-96.0); MONO # 0.6 10^3/uL (0.0-0.8); MONO % 5.5 % (2.0-8.0); NEUTROPHILS # 8.7 10^3/uL (1.5-8.5); NEUTROPHILS % 81.9 % (36.0-66.0); PLATELET COUNT, AUTOMATED 306 10^3/uL (150-450); RED BLOOD COUNT 4.72 10^6/uL (4.30-6.10); WHITE BLOOD COUNT 10.6 10^3/uL (4.0-10.0)
[2023-04-17 23:04] LABS: CK-MB VALUE MASS 1.3 NG/ML (<3.6)
[2023-04-17 23:06] LABS: ALKALINE PHOSPHATASE 93 U/L (46-116); ALT/SGPT 14 U/L (7.0-40); AST/SGOT 9 U/L (<34); BILIRUBIN,DIRECT 0.2 MG/DL (<0.4); BILIRUBIN,TOTAL 0.4 MG/DL (0.3-1.2); BLOOD UREA NITROGEN 13 MG/DL (9-23); CALCIUM LEVEL 8.7 MG/DL (8.3-10.6); CARBON DIOXIDE LEVEL 34 MMOL/L (20-31); CHLORIDE LEVEL 102 MMOL/L (98-107); CPK CREATINE PHOSPHOKINASE 40 U/L (46-171); CREATININE FOR GFR 0.67 MG/DL (0.70-1.30); GLOMERULAR FILTRATION RATE > 60.0 (>49); GLUCOSE, FASTING 237 MG/DL (74-106); MB/CK RELATIVE INDEX 3.25 (< OR =4); POTASSIUM SERUM 3.9 MMOL/L (3.5-5.1); SODIUM LEVEL 141 MMOL/L (136-145); TOTAL PROTEIN 6.3 G/DL (5.7-8.2)
[2023-04-17 23:08] LABS: THYROID STIMULATING HORMONE 0.919 uIU/ML (0.55-4.78); THYROXINE (T4) 5.6 UG/DL (4.5-10.9)
[2023-04-18] VITALS (7 sets, daily range): BP systolic 112–158; BP diastolic 59–93; TEMP 97.4–98.4; O2SAT 93–95
[2023-04-18] MEDS ORDERED: ACETAMINOPHEN TAB 650MG DOSE (2X325MG) PO PRN (00:20)
[2023-04-18] MEDS ORDERED: LEVALBUTEROL 1.25MG 0.5ML CONCENTRATE NEB INH PRN (00:20)
[2023-04-18] MEDS ORDERED: HOME MED LIST COMPLETE! XX SCH (00:25)
[2023-04-18] MEDS ORDERED: GLUCAGON INJ 1MG VIAL SC PRN (01:35)
[2023-04-18] MEDS ORDERED: DEXTROSE 50% 50ML SYRINGE IV PRN (01:35)
[2023-04-18] MEDS ORDERED: GLUCOSE 4GM CHEW TABLET PO PRN (01:35)
[2023-04-18] MEDS: IPRATROPIUM 0.5MG/ALBUTEROL 2.5MG INH SOL UD 3ML (DUONEB) NEB SCH ×6 (04:00→23:14)
[2023-04-18] MEDS: methylPREDNISolone 125MG 2ML VIAL IV SCH ×2 (05:05→17:35)
[2023-04-18 05:55] LABS: HEMATOCRIT 43.5 % (42.0-52.0); HEMOGLOBIN 13.6 g/dl (13.5-17.5); MEAN CORPUSCULAR HEMOGLOBIN 28.4 pg (27.0-33.0); MEAN CORPUSCULAR HGB CONC 31.3 g/dl (32.0-36.5); MEAN CORPUSCULAR VOLUME 90.8 fl (80.0-96.0); PLATELET COUNT, AUTOMATED 335 10^3/uL (150-450); RED BLOOD COUNT 4.79 10^6/uL (4.30-6.10); WHITE BLOOD COUNT 11.6 10^3/uL (4.0-10.0)
[2023-04-18 06:31] LABS: PROCALCITONIN <0.04 ng/ml
[2023-04-18 06:35] LABS: BLOOD UREA NITROGEN 13 MG/DL (9-23); CALCIUM LEVEL 8.6 MG/DL (8.3-10.6); CARBON DIOXIDE LEVEL 32 MMOL/L (20-31); CHLORIDE LEVEL 101 MMOL/L (98-107); CREATININE FOR GFR 0.62 MG/DL (0.70-1.30); GLOMERULAR FILTRATION RATE > 60.0 (>49); GLUCOSE, FASTING 272 MG/DL (74-106); MAGNESIUM LEVEL 2.1 MG/DL (1.8-2.4); POTASSIUM SERUM 5.5 MMOL/L (3.5-5.1); SODIUM LEVEL 139 MMOL/L (136-145)
[2023-04-18] MEDS ORDERED: SOD POLYSTYRENE SULFONATE SUSP 15GM 60ML UD PO ONE (06:50)
[2023-04-18] MEDS: INSULIN LISPRO (NovoLOG) PER UNIT SC SCH ×4 (07:38→20:05)
[2023-04-18] MEDS: HumuLIN R (REGULAR) INSULIN (NovoLIN R) **100U/ML** PER UNIT SC SCH ×3 (07:38→17:35)
[2023-04-18] MEDS ORDERED: SYMBICORT 160/4.5MCG INHALER 6GM INH SCH (08:00)
[2023-04-18] MEDS: ENOXAPARIN 40MG/0.4ML SYRINGE (J1650 PER 10MG) SC SCH (08:50)
[2023-04-18] MEDS: TAMSULOSIN 0.4 MG CAP PO SCH ×2 (08:50→20:04)
[2023-04-18] MEDS: PREGABALIN 50 MG CAP (LYRICA) PO SCH ×2 (08:50→20:05)
[2023-04-18] MEDS: METOPROLOL TART 25 MG TABLET PO SCH ×2 (08:51→20:04)
[2023-04-18] MEDS: guaiFENesin ER TABLET 600 MG TAB PO SCH ×4 (08:51→20:09)
[2023-04-18] MEDS: DULoxetine 30MG CAPSULE (CYMBALTA) PO SCH ×2 (08:52→20:04)
[2023-04-18] MEDS: DOXYCYCLINE HYCLATE 100MG TABLET PO SCH ×2 (13:52→20:05)
[2023-04-18] MEDS: NORCO, ANEXSIA 5/325MG TABLET (HYDROcodone/ACETAMINOPHEN) PO PRN (18:39)
[2023-04-18] MEDS: BUDESONIDE 0.5 MG/2 ML INHALATION SUSPENSION INH SCH (19:08)
[2023-04-18] MEDS: FORMOTEROL FUMARATE 20 MCG/2 ML INHALATION SOLUTION (PERFOROMIST) INH SCH (19:08)
[2023-04-18] MEDS: ATORVASTATIN 10 MG TAB PO SCH (20:04)
[2023-04-18] MEDS: MORPHINE SULFATE ORAL SOLN 10 MG/5 ML UD PO SCH (20:19)
[2023-04-19] VITALS (9 sets, daily range): BP systolic 115–141; BP diastolic 67–78; TEMP 97.5–98.1; O2SAT 88–98
[2023-04-19] MEDS: NORCO, ANEXSIA 5/325MG TABLET (HYDROcodone/ACETAMINOPHEN) PO PRN ×2 (00:39→21:17)
[2023-04-19] MEDS: IPRATROPIUM 0.5MG/ALBUTEROL 2.5MG INH SOL UD 3ML (DUONEB) NEB SCH ×6 (03:23→23:46)
[2023-04-19 04:31] LABS: BASO % 0.2 % (0.0-1.0); HEMATOCRIT 39.3 % (42.0-52.0); HEMOGLOBIN 12.5 g/dl (13.5-17.5); LYMPH # 0.9 10^3/uL (1.5-5.0); LYMPH % 5.3 % (24.0-44.0); MEAN CORPUSCULAR HEMOGLOBIN 28.7 pg (27.0-33.0); MEAN CORPUSCULAR HGB CONC 31.8 g/dl (32.0-36.5); MEAN CORPUSCULAR VOLUME 90.1 fl (80.0-96.0); MONO # 0.6 10^3/uL (0.0-0.8); MONO % 3.6 % (2.0-8.0); NEUTROPHILS # 15.9 10^3/uL (1.5-8.5); NEUTROPHILS % 90.1 % (36.0-66.0); PLATELET COUNT, AUTOMATED 370 10^3/uL (150-450); RED BLOOD COUNT 4.36 10^6/uL (4.30-6.10); WHITE BLOOD COUNT 17.7 10^3/uL (4.0-10.0)
[2023-04-19 05:02] LABS: BLOOD UREA NITROGEN 20 MG/DL (9-23); CARBON DIOXIDE LEVEL 33 MMOL/L (20-31); CHLORIDE LEVEL 106 MMOL/L (98-107); CREATININE FOR GFR 0.73 MG/DL (0.70-1.30); GLOMERULAR FILTRATION RATE > 60.0 (>49); GLUCOSE, FASTING 291 MG/DL (74-106); POTASSIUM SERUM 4.4 MMOL/L (3.5-5.1); SODIUM LEVEL 142 MMOL/L (136-145)
[2023-04-19] MEDS: methylPREDNISolone 125MG 2ML VIAL IV SCH (06:06)
[2023-04-19] MEDS ORDERED: HumuLIN R (REGULAR) INSULIN (NovoLIN R) **100U/ML** PER UNIT IV STA (06:21)
[2023-04-19 07:30] LABS: PROCALCITONIN <0.04 ng/ml
[2023-04-19] MEDS: BUDESONIDE 0.5 MG/2 ML INHALATION SUSPENSION INH SCH ×2 (07:52→19:39)
[2023-04-19] MEDS: FORMOTEROL FUMARATE 20 MCG/2 ML INHALATION SOLUTION (PERFOROMIST) INH SCH ×2 (07:52→19:39)
[2023-04-19] MEDS: INSULIN LISPRO (NovoLOG) PER UNIT SC SCH ×4 (08:34→21:00)
[2023-04-19] MEDS: HumuLIN R (REGULAR) INSULIN (NovoLIN R) **100U/ML** PER UNIT SC SCH ×3 (08:34→18:52)
[2023-04-19] MEDS: DULoxetine 30MG CAPSULE (CYMBALTA) PO SCH ×2 (08:35→21:10)
[2023-04-19] MEDS: ENOXAPARIN 40MG/0.4ML SYRINGE (J1650 PER 10MG) SC SCH (08:35)
[2023-04-19] MEDS: PREGABALIN 50 MG CAP (LYRICA) PO SCH ×2 (08:35→21:09)
[2023-04-19] MEDS: DOXYCYCLINE HYCLATE 100MG TABLET PO SCH ×2 (08:36→21:09)
[2023-04-19] MEDS: METOPROLOL TART 25 MG TABLET PO SCH ×2 (08:36→21:10)
[2023-04-19] MEDS: TAMSULOSIN 0.4 MG CAP PO SCH ×2 (08:38→21:09)
[2023-04-19] MEDS: guaiFENesin ER TABLET 600 MG TAB PO SCH ×3 (08:44→21:09)
[2023-04-19] MEDS: ATORVASTATIN 10 MG TAB PO SCH (21:10)
[2023-04-19] MEDS: MORPHINE SULFATE ORAL SOLN 10 MG/5 ML UD PO SCH (21:11)
[2023-04-20] MEDS: IPRATROPIUM 0.5MG/ALBUTEROL 2.5MG INH SOL UD 3ML (DUONEB) NEB SCH ×3 (03:33→12:07)
[2023-04-20 05:43] VITALS: BP 114/77; TEMP 97.2; O2SAT 97
[2023-04-20 06:47] LABS: BASO % 0.3 % (0.0-1.0); EOS # 0.2 10^3/uL (0.0-0.5); EOS % 1.1 % (0.0-3.0); HEMATOCRIT 39.2 % (42.0-52.0); HEMOGLOBIN 12.3 g/dl (13.5-17.5); LYMPH # 2.1 10^3/uL (1.5-5.0); LYMPH % 15.6 % (24.0-44.0); MEAN CORPUSCULAR HEMOGLOBIN 28.9 pg (27.0-33.0); MEAN CORPUSCULAR HGB CONC 31.4 g/dl (32.0-36.5); MONO % 7.4 % (2.0-8.0); NEUTROPHILS # 9.9 10^3/uL (1.5-8.5); NEUTROPHILS % 74.5 % (36.0-66.0); PLATELET COUNT, AUTOMATED 318 10^3/uL (150-450); RED BLOOD COUNT 4.26 10^6/uL (4.30-6.10); WHITE BLOOD COUNT 13.3 10^3/uL (4.0-10.0)
[2023-04-20] MEDS: INSULIN LISPRO (NovoLOG) PER UNIT SC SCH ×2 (07:30→13:15)
[2023-04-20] MEDS: HumuLIN R (REGULAR) INSULIN (NovoLIN R) **100U/ML** PER UNIT SC SCH ×2 (07:30→13:15)
[2023-04-20] MEDS ORDERED: DOXY100T PO (07:49)
[2023-04-20] MEDS ORDERED: PRED20TA PO (07:49)
[2023-04-20] MEDS ORDERED: PRED10TA2 PO (07:49)
[2023-04-20] MEDS ORDERED: AZIT-12 PO (07:49)
[2023-04-20] MEDS ORDERED: ALBU2.5V10 INH (07:49)
[2023-04-20] MEDS: FORMOTEROL FUMARATE 20 MCG/2 ML INHALATION SOLUTION (PERFOROMIST) INH SCH (08:01)
[2023-04-20] MEDS: BUDESONIDE 0.5 MG/2 ML INHALATION SUSPENSION INH SCH (08:01)
[2023-04-20] MEDS ORDERED: predniSONE 20 MG TAB PO SCH (09:00)
[2023-04-20] MEDS ORDERED: methylPREDNISolone 40MG 1ML VIAL IV SCH (09:00)
[2023-04-20] MEDS: DOXYCYCLINE HYCLATE 100MG TABLET PO SCH (09:15)
[2023-04-20] MEDS: PREGABALIN 50 MG CAP (LYRICA) PO SCH (09:15)
[2023-04-20] MEDS: DULoxetine 30MG CAPSULE (CYMBALTA) PO SCH (09:15)
[2023-04-20] MEDS: TAMSULOSIN 0.4 MG CAP PO SCH (09:16)
[2023-04-20] MEDS: ENOXAPARIN 40MG/0.4ML SYRINGE (J1650 PER 10MG) SC SCH (09:16)
[2023-04-20 09:17] VITALS: BP 126/83
[2023-04-20] MEDS: METOPROLOL TART 25 MG TABLET PO SCH (09:17)
== END 2023-04-20 13:50 | disposition home health service (06) | DRG 191 ==
LOC: M ED 21:54 → M ED INP 04-18 00:20 → M ICU 04-18 02:10 → M MS5PR 04-19 17:37
PROVIDERS: ADMIT Family Medicine; ATTEND General Practice
DX: J44.1 Chronic obstructive pulmonary disease with (acute) exacerbation (principal); J96.11 Chronic respiratory failure with hypoxia; E87.29 Other acidosis; E11.9 Type 2 diabetes mellitus without complications; I10 Essential (primary) hypertension; G89.29 Other chronic pain; E78.5 Hyperlipidemia, unspecified; N40.0 Benign prostatic hyperplasia without lower urinary tract symptoms; F41.9 Anxiety disorder, unspecified; E66.9 Obesity, unspecified; D72.829 Elevated white blood cell count, unspecified; R94.31 Abnormal electrocardiogram [ECG] [EKG]; E87.5 Hyperkalemia; F32.A Depression, unspecified; Z87.891 Personal history of nicotine dependence; Z79.891 Long term (current) use of opiate analgesic; Z79.899 Other long term (current) drug therapy; Z79.4 Long term (current) use of insulin; Z88.0 Allergy status to penicillin; Z88.5 Allergy status to narcotic agent; Z88.6 Allergy status to analgesic agent; Z88.8 Allergy status to other drugs, medicaments and biological substances; Z91.030 Bee allergy status; Z68.34 Body mass index [BMI] 34.0-34.9, adult; Z99.81 Dependence on supplemental oxygen

== ENCOUNTER 2023-10-12 23:16 | Inpatient (IN) | payer MEDICARE ==
[~2023-10-12] VITALS: Ht 177.8 cm; Wt 112.2 kg
[~2023-10-12 23:16] MED LIST changes: +ALBU2.5V10 INH; +AZIT-12 PO; -BUDE10.7 IH; +BUDE10.7 INH; -CELE1CAP8 PO; +CELE1CAP99 PO; -INSU100I12 PO; +INSU100I12 SC
[2023-10-12 23:35] LABS: ABG BASE EXCESS 2.3 (-2.0-2.0); ABG HCO3 29.2 MMOL/L (22.0-26.0); ABG O2 SATURATION 98.3 % (95.0-99.0); ABG PARTIAL PRESSURE CO2 54.9 mmHg (35.0-45.0); ABG PARTIAL PRESSURE O2 117.3 mmHg (75.0-100.0); ABG STANDARD HCO3 26.5 MMOL/L. (22.0-26.0); ABG TOTAL CO2 30.9 MMOL/L (23.0-31.0); ABG pH (ARTERIAL) 7.344 UNITS (7.350-7.450)
[2023-10-12] MEDS: IPRATROPIUM 0.5MG/ALBUTEROL 2.5MG INH SOL UD 3ML (DUONEB) NEB PRN (23:37)
[2023-10-13 00:09] LABS: BASO # 0.1 10^3/uL (0.0-0.2); BASO % 0.6 % (0.0-1.0); EOS # 0.3 10^3/uL (0.0-0.5); EOS % 1.6 % (0.0-3.0); HEMATOCRIT 42.3 % (42.0-52.0); HEMOGLOBIN 13.1 g/dl (13.5-17.5); LYMPH % 4.9 % (24.0-44.0); MEAN CORPUSCULAR HEMOGLOBIN 28.9 pg (27.0-33.0); MEAN CORPUSCULAR VOLUME 93.2 fl (80.0-96.0); MONO # 0.9 10^3/uL (0.0-0.8); MONO % 4.9 % (2.0-8.0); NEUTROPHILS # 16.8 10^3/uL (1.5-8.5); NEUTROPHILS % 86.9 % (36.0-66.0); PLATELET COUNT, AUTOMATED 357 10^3/uL (150-450); RED BLOOD COUNT 4.54 10^6/uL (4.30-6.10); WHITE BLOOD COUNT 19.3 10^3/uL (4.0-10.0)
[2023-10-13] MEDS: cefTRIAXone SOD 2 GM in D5W MINI-BAG PLUS 50 ML IV ONE (00:55)
[2023-10-13 01:14] LABS: CK-MB VALUE MASS 2.3 NG/ML (<3.6)
[2023-10-13 01:21] LABS: CPK CREATINE PHOSPHOKINASE 81 U/L (46-171); MB/CK RELATIVE INDEX 2.83 (< OR =4)
[2023-10-13 01:48] LABS: ALBUMIN 3.2 G/DL (3.2-5.2); ALKALINE PHOSPHATASE 90 U/L (46-116); ALT/SGPT 18 U/L (7.0-40); AST/SGOT 13 U/L (<34); BILIRUBIN,DIRECT < 0.1 MG/DL (<0.4); BILIRUBIN,TOTAL 0.3 MG/DL (0.3-1.2); BLOOD UREA NITROGEN 21 MG/DL (9-23); CALCIUM LEVEL 8.5 MG/DL (8.3-10.6); CARBON DIOXIDE LEVEL 31 MMOL/L (20-31); CHLORIDE LEVEL 104 MMOL/L (98-107); CREATININE FOR GFR 0.77 MG/DL (0.70-1.30); GLOMERULAR FILTRATION RATE > 60.0 (>49); GLUCOSE, FASTING 208 MG/DL (74-106); POTASSIUM SERUM 4.9 MMOL/L (3.5-5.1); SODIUM LEVEL 139 MMOL/L (136-145); TOTAL PROTEIN 6.1 G/DL (5.7-8.2)
[2023-10-13] MEDS ORDERED: ISOVUE-370 76% 100ML VIAL As Ordered ONE (01:53)
[2023-10-13 02:11] LABS: CK-MB VALUE MASS 2.3 NG/ML (<3.6); MB/CK RELATIVE INDEX 5.22 (< OR =4)
[2023-10-13] MEDS ORDERED: DEXTROSE 50% 50ML SYRINGE IV PRN (04:45)
[2023-10-13] MEDS ORDERED: GLUCAGON INJ 1MG VIAL SC PRN (04:45)
[2023-10-13] MEDS ORDERED: GLUCOSE 4GM CHEW TABLET PO PRN (04:45)
[2023-10-13] MEDS ORDERED: HEPARIN SOD (PORCINE) 5000UNITS/ML 1ML VIAL/SYRINGE SC SCH (04:45)
[2023-10-13] MEDS: DOXYCYCLINE HYCLATE 100 MG in D5W MINI-BAG PLUS 100 ML IV ONE (05:00)
[2023-10-13] MEDS: NS 1,000 ML IV SCH (05:45)
[2023-10-13] MEDS ORDERED: methylPREDNISolone 40MG 1ML VIAL IV SCH (06:00)
[2023-10-13] MEDS ORDERED: PRED10TA2 PO (06:14)
[2023-10-13] MEDS ORDERED: ALBU2.5V10 INH (06:14)
[2023-10-13] MEDS ORDERED: IPRA0.00 INH (06:14)
[2023-10-13] MEDS ORDERED: HOME MED LIST COMPLETE! XX SCH (06:15)
[2023-10-13] MEDS: methylPREDNISolone 40MG 1ML VIAL IV SCH (06:33)
[2023-10-13 06:35] LABS: INR 1.04; PARTIAL THROMBOPLASTIN TIME 28.2 SECONDS (24.8-34.2); PROTHROMBIN TIME 13.3 SECONDS (12.5-14.5)
[2023-10-13] MEDS: HEPARIN SOD (PORCINE) 5000UNITS/ML 1ML VIAL/SYRINGE SC SCH (06:40)
[2023-10-13 07:51] LABS: BASO % 0.3 % (0.0-1.0); HEMATOCRIT 39.4 % (42.0-52.0); HEMOGLOBIN 12.3 g/dl (13.5-17.5); LYMPH # 0.5 10^3/uL (1.5-5.0); LYMPH % 3.3 % (24.0-44.0); MEAN CORPUSCULAR HEMOGLOBIN 29.1 pg (27.0-33.0); MEAN CORPUSCULAR HGB CONC 31.2 g/dl (32.0-36.5); MEAN CORPUSCULAR VOLUME 93.1 fl (80.0-96.0); MONO # 0.1 10^3/uL (0.0-0.8); MONO % 0.4 % (2.0-8.0); NEUTROPHILS # 13.7 10^3/uL (1.5-8.5); NEUTROPHILS % 95.3 % (36.0-66.0); PLATELET COUNT, AUTOMATED 349 10^3/uL (150-450); RED BLOOD COUNT 4.23 10^6/uL (4.30-6.10); WHITE BLOOD COUNT 14.4 10^3/uL (4.0-10.0)
[2023-10-13] MEDS: INSULIN LISPRO (NovoLOG) PER UNIT SC SCH ×2 (08:29→21:21)
[2023-10-13] MEDS: METOPROLOL TART 25 MG TABLET PO SCH (09:00)
[2023-10-13 09:30] VITALS: BP 126/71; TEMP 97; O2SAT 94
[2023-10-13] MEDS: IPRATROPIUM 0.5MG/ALBUTEROL 2.5MG INH SOL UD 3ML (DUONEB) NEB SCH (10:09)
[2023-10-13] MEDS ORDERED: SODIUM CHLORIDE NASAL 0.65% SPRAY BTL (OCEAN) PRN (10:40)
[2023-10-13] MEDS ORDERED: **SFRHE** EPINEPHrine (EPIPEN) 0.3MG/0.3ML SYRINGE INJ PRN (11:20)
[2023-10-13] MEDS ORDERED: PILL CUTTER 1 EACH XX PRN (12:10)
[2023-10-13] MEDS: AZITHROMYCIN 250MG TABLET PO SCH (13:16)
[2023-10-13] MEDS: TAMSULOSIN 0.4 MG CAP PO SCH (13:16)
[2023-10-13] MEDS: DULoxetine 30MG CAPSULE (CYMBALTA) PO SCH ×2 (13:16→21:24)
[2023-10-13] MEDS: NORCO, ANEXSIA 5/325MG TABLET (HYDROcodone/ACETAMINOPHEN) PO PRN (13:16)
[2023-10-13] MEDS: PREGABALIN 50 MG CAP (LYRICA) PO SCH (13:17)
[2023-10-13 14:00] VITALS: BP 113/44; TEMP 97.3; O2SAT 94
[2023-10-13] MEDS: ALBUTEROL SULFATE 2.5MG/0.5ML INH NEB SOLN NEB PRN (16:56)
[2023-10-13] MEDS: SYMBICORT 160/4.5MCG INHALER 6GM INH SCH (19:54)
[2023-10-13] MEDS: MORPHINE 30 MG TAB **MSIR PO SCH (21:00)
[2023-10-13] MEDS ORDERED: DOXYCYCLINE HYCLATE 100MG TABLET PO SCH (21:00)
[2023-10-13 21:07] VITALS: BP 117/81; TEMP 97.5; O2SAT 95
[2023-10-13] MEDS: LEVEMIR (INSULIN DETEMIR) 1 UNITS/0.01ML SC SCH (21:22)
[2023-10-13] MEDS: ATORVASTATIN 10 MG TAB PO SCH (21:25)
[2023-10-14 06:07] VITALS: BP 119/78; TEMP 97.2; O2SAT 98
[2023-10-14 07:38] LABS: BASO # 0.1 10^3/uL (0.0-0.2); BASO % 0.4 % (0.0-1.0); EOS # 0.1 10^3/uL (0.0-0.5); EOS % 0.9 % (0.0-3.0); HEMATOCRIT 35.2 % (42.0-52.0); HEMOGLOBIN 10.8 g/dl (13.5-17.5); LYMPH # 1.9 10^3/uL (1.5-5.0); LYMPH % 14.8 % (24.0-44.0); MEAN CORPUSCULAR HEMOGLOBIN 28.3 pg (27.0-33.0); MEAN CORPUSCULAR HGB CONC 30.7 g/dl (32.0-36.5); MEAN CORPUSCULAR VOLUME 92.1 fl (80.0-96.0); MONO # 1.1 10^3/uL (0.0-0.8); MONO % 8.2 % (2.0-8.0); NEUTROPHILS # 9.7 10^3/uL (1.5-8.5); NEUTROPHILS % 74.9 % (36.0-66.0); PLATELET COUNT, AUTOMATED 322 10^3/uL (150-450); RED BLOOD COUNT 3.82 10^6/uL (4.30-6.10); WHITE BLOOD COUNT 12.9 10^3/uL (4.0-10.0)
[2023-10-14 08:08] LABS: BLOOD UREA NITROGEN 21 MG/DL (9-23); CALCIUM LEVEL 8.2 MG/DL (8.3-10.6); CARBON DIOXIDE LEVEL 37 MMOL/L (20-31); CHLORIDE LEVEL 105 MMOL/L (98-107); CREATININE FOR GFR 0.78 MG/DL (0.70-1.30); GLOMERULAR FILTRATION RATE > 60.0 (>49); GLUCOSE, FASTING 200 MG/DL (74-106); POTASSIUM SERUM 4.3 MMOL/L (3.5-5.1); SODIUM LEVEL 143 MMOL/L (136-145)
[2023-10-14] MEDS: predniSONE 20 MG TAB PO SCH (08:14)
[2023-10-14] MEDS: TIOTROPIUM INHALER/CAPSULE (SPIRIVA) INH SCH (08:43)
[2023-10-14 08:44] VITALS: O2SAT 2
[2023-10-14 14:00] VITALS: BP 103/66; TEMP 97.3; O2SAT 94
[2023-10-14 20:19] VITALS: BP 119/80; TEMP 97.3; O2SAT 96
[2023-10-15 05:51] VITALS: BP 124/73; TEMP 97.3; O2SAT 96
[2023-10-15 06:31] LABS: BASO # 0.1 10^3/uL (0.0-0.2); BASO % 0.6 % (0.0-1.0); EOS # 0.3 10^3/uL (0.0-0.5); EOS % 2.2 % (0.0-3.0); HEMATOCRIT 35.7 % (42.0-52.0); HEMOGLOBIN 11.1 g/dl (13.5-17.5); LYMPH # 2.3 10^3/uL (1.5-5.0); LYMPH % 20.1 % (24.0-44.0); MEAN CORPUSCULAR HEMOGLOBIN 28.6 pg (27.0-33.0); MEAN CORPUSCULAR HGB CONC 31.1 g/dl (32.0-36.5); MONO % 8.7 % (2.0-8.0); NEUTROPHILS # 7.7 10^3/uL (1.5-8.5); NEUTROPHILS % 67.5 % (36.0-66.0); PLATELET COUNT, AUTOMATED 306 10^3/uL (150-450); RED BLOOD COUNT 3.88 10^6/uL (4.30-6.10); WHITE BLOOD COUNT 11.4 10^3/uL (4.0-10.0)
[2023-10-15 09:28] VITALS: BP 124/73
[2023-10-15] MEDS ORDERED: IPRA0.00 INH (10:21)
[2023-10-15] MEDS ORDERED: PRED20TA PO (10:21)
[2023-10-15] MEDS ORDERED: PRED10TA2 PO (11:00)
== END 2023-10-15 11:50 | disposition home health service (06) | DRG 189 ==
LOC: EDBD 23:16 → M ED 23:16 → M ED INP 23:17 → OBSVTOIN 23:17 → M MS5PR 10-13 09:30
PROVIDERS: ADMIT Internal Medicine; ATTEND Internal Medicine
DX: J96.21 Acute and chronic respiratory failure with hypoxia (principal); J44.1 Chronic obstructive pulmonary disease with (acute) exacerbation; E87.20 Acidosis, unspecified; R04.0 Epistaxis; E11.42 Type 2 diabetes mellitus with diabetic polyneuropathy; E78.00 Pure hypercholesterolemia, unspecified; R07.89 Other chest pain; I10 Essential (primary) hypertension; G25.0 Essential tremor; G50.0 Trigeminal neuralgia; J96.22 Acute and chronic respiratory failure with hypercapnia; J45.909 Unspecified asthma, uncomplicated; Z99.81 Dependence on supplemental oxygen; Z87.891 Personal history of nicotine dependence; Z79.899 Other long term (current) drug therapy; Z79.4 Long term (current) use of insulin; Z88.5 Allergy status to narcotic agent; Z88.0 Allergy status to penicillin; Z88.6 Allergy status to analgesic agent; Z88.8 Allergy status to other drugs, medicaments and biological substances; Z91.030 Bee allergy status; Z79.52 Long term (current) use of systemic steroids

== ENCOUNTER 2023-12-21 21:56 | Inpatient (IN) | payer MEDICARE ==
[~2023-12-21] VITALS: Ht 177.8 cm; Wt 116.8 kg
[~2023-12-21 21:56] MED LIST changes: +DOXY-323 PO; +DOXY-440 PO; -DOXY-443 PO; -DOXY-444 PO
[2023-12-21 22:30] LABS: BASO # 0.1 10^3/uL (0.0-0.2); BASO % 0.6 % (0.0-1.0); EOS # 0.5 10^3/uL (0.0-0.5); EOS % 2.7 % (0.0-3.0); HEMATOCRIT 44.9 % (42.0-52.0); HEMOGLOBIN 13.8 g/dl (13.5-17.5); LYMPH # 1.8 10^3/uL (1.5-5.0); LYMPH % 9.1 % (24.0-44.0); MEAN CORPUSCULAR HEMOGLOBIN 27.4 pg (27.0-33.0); MEAN CORPUSCULAR HGB CONC 30.7 g/dl (32.0-36.5); MEAN CORPUSCULAR VOLUME 89.3 fl (80.0-96.0); MONO # 1.2 10^3/uL (0.0-0.8); MONO % 6.2 % (2.0-8.0); NEUTROPHILS # 15.6 10^3/uL (1.5-8.5); NEUTROPHILS % 80.8 % (36.0-66.0); PLATELET COUNT, AUTOMATED 391 10^3/uL (150-450); RED BLOOD COUNT 5.03 10^6/uL (4.30-6.10); WHITE BLOOD COUNT 19.3 10^3/uL (4.0-10.0)
[2023-12-21 22:43] LABS: ABG BASE EXCESS -0.2 (-2.0-2.0); ABG HCO3 26.9 MMOL/L (22.0-26.0); ABG O2 SATURATION 97.5 % (95.0-99.0); ABG PARTIAL PRESSURE CO2 53.8 mmHg (35.0-45.0); ABG PARTIAL PRESSURE O2 101.7 mmHg (75.0-100.0); ABG STANDARD HCO3 24.4 MMOL/L. (22.0-26.0); ABG TOTAL CO2 28.6 MMOL/L (23.0-31.0); ABG pH (ARTERIAL) 7.317 UNITS (7.350-7.450)
[2023-12-21 22:50] LABS: ALBUMIN 3.4 G/DL (3.2-5.2); ALKALINE PHOSPHATASE 102 U/L (46-116); ALT/SGPT 17 U/L (7.0-40); AST/SGOT < 8 U/L (<34); BILIRUBIN,DIRECT < 0.1 MG/DL (<0.4); BILIRUBIN,TOTAL 0.2 MG/DL (0.3-1.2); BLOOD UREA NITROGEN 19 MG/DL (9-23); CALCIUM LEVEL 9.1 MG/DL (8.3-10.6); CARBON DIOXIDE LEVEL 30 MMOL/L (20-31); CHLORIDE LEVEL 106 MMOL/L (98-107); CK-MB VALUE MASS 2.2 NG/ML (<3.6); CREATININE FOR GFR 0.86 MG/DL (0.70-1.30); GLOMERULAR FILTRATION RATE > 60.0 (>49); GLUCOSE, FASTING 207 MG/DL (74-106); POTASSIUM SERUM 4.4 MMOL/L (3.5-5.1); SODIUM LEVEL 141 MMOL/L (136-145); TOTAL PROTEIN 6.5 G/DL (5.7-8.2)
[2023-12-21 22:52] LABS: CPK CREATINE PHOSPHOKINASE 64 U/L (46-171); MB/CK RELATIVE INDEX 3.43 (< OR =4)
[2023-12-21] MEDS: IPRATROPIUM 0.5MG/ALBUTEROL 2.5MG INH SOL UD 3ML (DUONEB) NEB ONE (22:56)
[2023-12-21] MEDS: LORazepam 2 MG/ML 1ML VIAL IV STA (23:14)
[2023-12-21] MEDS ORDERED: ISOVUE-370 76% 100ML VIAL As Ordered ONE (23:47)
[2023-12-22] VITALS (8 sets, daily range): BP systolic 128–149; BP diastolic 60–94; TEMP 97.8–98.1; O2SAT 89–98
[2023-12-22 00:59] LABS: CK-MB VALUE MASS 2.1 NG/ML (<3.6)
[2023-12-22 01:00] LABS: MB/CK RELATIVE INDEX 3.33 (< OR =4)
[2023-12-22 02:06] LABS: VENOUS BASE EXCESS 2.2 (-2.0-2.0); VENOUS HCO3 30.6 MMOL/L (23.0-27.0); VENOUS O2 SATURATION 97.5 % (60.0-80.0); VENOUS PARTIAL PRESSURE CO2 65.3 mmHg (38.0-50.0); VENOUS PARTIAL PRESSURE O2 102.8 mmHg (30.0-50.0); VENOUS PH 7.289 UNITS (7.330-7.430); VENOUS STANDARD HCO3 26.5 MMOL/L; VENOUS TOTAL CO2 32.6 MMOL/L (24.0-28.0)
[2023-12-22 02:45] LABS: ABG BASE EXCESS -0.2 (-2.0-2.0); ABG HCO3 27.7 MMOL/L (22.0-26.0); ABG O2 SATURATION 98.3 % (95.0-99.0); ABG PARTIAL PRESSURE CO2 59.4 mmHg (35.0-45.0); ABG PARTIAL PRESSURE O2 112.3 mmHg (75.0-100.0); ABG STANDARD HCO3 24.3 MMOL/L. (22.0-26.0); ABG TOTAL CO2 29.5 MMOL/L (23.0-31.0); ABG pH (ARTERIAL) 7.286 UNITS (7.350-7.450)
[2023-12-22] MEDS: cefTRIAXone SOD 2 GM in D5W MINI-BAG PLUS 50 ML IV ONE (03:16)
[2023-12-22] MEDS ORDERED: DEXTROSE 50% 50ML SYRINGE IV PRN ×3 (03:50→10:30)
[2023-12-22] MEDS ORDERED: IPRATROPIUM 0.5MG/ALBUTEROL 2.5MG INH SOL UD 3ML (DUONEB) NEB PRN (03:50)
[2023-12-22] MEDS ORDERED: GLUCAGON INJ 1MG VIAL SC PRN ×3 (03:50→10:30)
[2023-12-22] MEDS ORDERED: GLUCOSE 4 GM CHEW PO PRN ×3 (03:50→10:30)
[2023-12-22 04:16] LABS: PROCALCITONIN 0.05 ng/ml
[2023-12-22] MEDS: methylPREDNISolone 125MG 2ML VIAL IV ONE (04:29)
[2023-12-22] MEDS ORDERED: ERGO500029 PO (04:35)
[2023-12-22] MEDS ORDERED: ISOS1TAB35 PO (04:35)
[2023-12-22] MEDS ORDERED: HOME MED LIST COMPLETE! XX SCH (04:40)
[2023-12-22 05:46] LABS: ABG HCO3 23.5 MMOL/L (22.0-26.0); ABG PARTIAL PRESSURE CO2 52.6 mmHg (35.0-45.0); ABG PARTIAL PRESSURE O2 150.2 mmHg (75.0-100.0); ABG STANDARD HCO3 21.2 MMOL/L. (22.0-26.0); ABG TOTAL CO2 25.1 MMOL/L (23.0-31.0); ABG pH (ARTERIAL) 7.268 UNITS (7.350-7.450)
[2023-12-22] MEDS: HEPARIN SOD (PORCINE) 5000UNITS/ML 1ML VIAL/SYRINGE SC SCH (06:15)
[2023-12-22 06:42] LABS: BASO # 0.1 10^3/uL (0.0-0.2); BASO % 0.3 % (0.0-1.0); HEMATOCRIT 43.9 % (42.0-52.0); HEMOGLOBIN 13.5 g/dl (13.5-17.5); LYMPH # 0.3 10^3/uL (1.5-5.0); LYMPH % 1.9 % (24.0-44.0); MEAN CORPUSCULAR HEMOGLOBIN 27.4 pg (27.0-33.0); MEAN CORPUSCULAR HGB CONC 30.8 g/dl (32.0-36.5); MEAN CORPUSCULAR VOLUME 89.2 fl (80.0-96.0); MONO # 0.1 10^3/uL (0.0-0.8); MONO % 0.3 % (2.0-8.0); NEUTROPHILS # 15.9 10^3/uL (1.5-8.5); NEUTROPHILS % 96.8 % (36.0-66.0); PLATELET COUNT, AUTOMATED 361 10^3/uL (150-450); RED BLOOD COUNT 4.92 10^6/uL (4.30-6.10); WHITE BLOOD COUNT 16.5 10^3/uL (4.0-10.0)
[2023-12-22 07:11] LABS: BLOOD UREA NITROGEN 18 MG/DL (9-23); CALCIUM LEVEL 8.8 MG/DL (8.3-10.6); CARBON DIOXIDE LEVEL 29 MMOL/L (20-31); CHLORIDE LEVEL 103 MMOL/L (98-107); GLOMERULAR FILTRATION RATE > 60.0 (>49); GLUCOSE, FASTING 325 MG/DL (74-106); MAGNESIUM LEVEL 2.1 MG/DL (1.8-2.4); POTASSIUM SERUM 5.3 MMOL/L (3.5-5.1); SODIUM LEVEL 141 MMOL/L (136-145)
[2023-12-22] MEDS ORDERED: INSULIN LISPRO (NovoLOG) PER UNIT SC SCH ×4 (07:30→21:00)
[2023-12-22] MEDS: IPRATROPIUM 0.5MG/ALBUTEROL 2.5MG INH SOL UD 3ML (DUONEB) NEB SCH (08:48)
[2023-12-22] MEDS: INSULIN LISPRO (NovoLOG) PER UNIT SC SCH (09:01)
[2023-12-22] MEDS: PATIROMER SORBITEX CALCIUM 8.4 GM POWDER PACKET (VELTASSA) PO ONE (09:02)
[2023-12-22] MEDS: AZITHROMYCIN 250MG TABLET PO ONE (10:26)
[2023-12-22] MEDS: TAMSULOSIN 0.4 MG CAP PO SCH (10:27)
[2023-12-22] MEDS: PREGABALIN 50 MG CAP (LYRICA) PO SCH (10:27)
[2023-12-22] MEDS: NORCO, ANEXSIA 5/325MG TABLET (HYDROcodone/ACETAMINOPHEN) PO PRN ×2 (10:28→21:22)
[2023-12-22] MEDS: METOPROLOL TART 25 MG TABLET PO SCH (10:30)
[2023-12-22] MEDS ORDERED: INSULIN REGULAR SC SCH (12:00)
[2023-12-22] MEDS ORDERED: HumuLIN R (REGULAR) INSULIN (NovoLIN R) **100U/ML** PER UNIT SC SCH (12:30)
[2023-12-22] MEDS ORDERED: INSULIN REGULAR SQ SA SCH (13:06)
[2023-12-22] MEDS: methylPREDNISolone 125MG 2ML VIAL IV SCH (13:17)
[2023-12-22] MEDS: INSULIN REGULAR SQ SA SCH (14:03)
[2023-12-22] MEDS ORDERED: methylPREDNISolone 40MG 1ML VIAL IV SCH (16:00)
[2023-12-22] MEDS: ATORVASTATIN 10 MG TAB PO SCH (21:21)
[2023-12-22] MEDS: methylPREDNISolone 40MG 1ML VIAL IV SCH (21:23)
[2023-12-22] MEDS: LEVEMIR (INSULIN DETEMIR) 1 UNITS/0.01ML SC SCH (21:23)
[2023-12-22] MEDS: DULoxetine 30MG CAPSULE (CYMBALTA) PO SCH (21:23)
[2023-12-23 04:00] VITALS: BP 127/68; TEMP 97.3; O2SAT 93
[2023-12-23 04:38] LABS: BASO % 0.1 % (0.0-1.0); HEMATOCRIT 39.8 % (42.0-52.0); HEMOGLOBIN 12.6 g/dl (13.5-17.5); LYMPH # 0.7 10^3/uL (1.5-5.0); LYMPH % 3.3 % (24.0-44.0); MEAN CORPUSCULAR HEMOGLOBIN 27.7 pg (27.0-33.0); MEAN CORPUSCULAR HGB CONC 31.7 g/dl (32.0-36.5); MEAN CORPUSCULAR VOLUME 87.5 fl (80.0-96.0); MONO # 0.7 10^3/uL (0.0-0.8); MONO % 3.3 % (2.0-8.0); NEUTROPHILS # 19.6 10^3/uL (1.5-8.5); NEUTROPHILS % 92.5 % (36.0-66.0); PLATELET COUNT, AUTOMATED 363 10^3/uL (150-450); RED BLOOD COUNT 4.55 10^6/uL (4.30-6.10); WHITE BLOOD COUNT 21.2 10^3/uL (4.0-10.0)
[2023-12-23 05:03] LABS: BLOOD UREA NITROGEN 22 MG/DL (9-23); CALCIUM LEVEL 8.8 MG/DL (8.3-10.6); CARBON DIOXIDE LEVEL 30 MMOL/L (20-31); CHLORIDE LEVEL 106 MMOL/L (98-107); CREATININE FOR GFR 0.67 MG/DL (0.70-1.30); GLOMERULAR FILTRATION RATE > 60.0 (>49); GLUCOSE, FASTING 203 MG/DL (74-106); SODIUM LEVEL 140 MMOL/L (136-145)
[2023-12-23] MEDS: AZITHROMYCIN 250MG TABLET PO SCH (08:07)
[2023-12-23 08:09] VITALS: BP 142/75; TEMP 97; O2SAT 95
[2023-12-23 08:10] VITALS: BP 142/75
[2023-12-23] MEDS ORDERED: AZIT-10 PO (11:16)
[2023-12-23] MEDS ORDERED: AZIT-12 PO (11:16)
[2023-12-23] MEDS ORDERED: PRED20TA PO (11:16)
[2023-12-23] MEDS ORDERED: CEFD1CAP9 PO (11:16)
== END 2023-12-23 11:57 | disposition home health service (06) | DRG 189 ==
LOC: EDBD 21:56 → M ED 21:56 → M ED INP 12-22 03:32 → M ICU 12-22 06:11
PROVIDERS: ADMIT Internal Medicine; ATTEND Hospitalist
DX: J96.22 Acute and chronic respiratory failure with hypercapnia (principal); E87.29 Other acidosis; J44.0 Chronic obstructive pulmonary disease with (acute) lower respiratory infection; J44.1 Chronic obstructive pulmonary disease with (acute) exacerbation; E66.9 Obesity, unspecified; J96.21 Acute and chronic respiratory failure with hypoxia; E11.40 Type 2 diabetes mellitus with diabetic neuropathy, unspecified; E78.5 Hyperlipidemia, unspecified; G89.29 Other chronic pain; N40.0 Benign prostatic hyperplasia without lower urinary tract symptoms; J20.8 Acute bronchitis due to other specified organisms; R94.31 Abnormal electrocardiogram [ECG] [EKG]; F31.9 Bipolar disorder, unspecified; E87.5 Hyperkalemia; G47.33 Obstructive sleep apnea (adult) (pediatric); E11.65 Type 2 diabetes mellitus with hyperglycemia; J43.9 Emphysema, unspecified; Z99.81 Dependence on supplemental oxygen; Z79.4 Long term (current) use of insulin; Z79.899 Other long term (current) drug therapy; Z88.0 Allergy status to penicillin; Z88.5 Allergy status to narcotic agent; Z88.8 Allergy status to other drugs, medicaments and biological substances; Z91.030 Bee allergy status; Z88.1 Allergy status to other antibiotic agents; Z88.6 Allergy status to analgesic agent; Z79.52 Long term (current) use of systemic steroids; Z87.891 Personal history of nicotine dependence; Z68.36 Body mass index [BMI] 36.0-36.9, adult

== ENCOUNTER 2024-03-21 08:37 | Inpatient (IN) | payer MEDICARE ==
[~2024-03-21] VITALS: Ht 177.8 cm; Wt 124.2 kg
[~2024-03-21 08:37] MED LIST changes: +AZIT-10 PO; +CEFD1CAP9 PO; +ERGO500029 PO; +ISOS1TAB35 PO
[2024-03-21] MEDS ORDERED: IPRATROPIUM 0.5MG/ALBUTEROL 2.5MG INH SOL UD 3ML (DUONEB) NEB PRN (08:40)
[2024-03-21 09:04] LABS: ABG BASE EXCESS -1.8 (-2.0-2.0); ABG O2 SATURATION 99.8 % (95.0-99.0); ABG PARTIAL PRESSURE CO2 50.4 mmHg (35.0-45.0); ABG PARTIAL PRESSURE O2 296.7 mmHg (75.0-100.0); ABG STANDARD HCO3 23.1 MMOL/L. (22.0-26.0); ABG TOTAL CO2 26.6 MMOL/L (23.0-31.0); ABG pH (ARTERIAL) 7.314 UNITS (7.350-7.450)
[2024-03-21 09:25] LABS: BASO # 0.1 10^3/uL (0.0-0.2); BASO % 0.6 % (0.0-1.0); EOS # 0.1 10^3/uL (0.0-0.5); EOS % 0.8 % (0.0-3.0); HEMATOCRIT 46.5 % (42.0-52.0); HEMOGLOBIN 14.4 g/dl (13.5-17.5); INR 1.12; LYMPH # 1.1 10^3/uL (1.5-5.0); LYMPH % 7.1 % (24.0-44.0); MEAN CORPUSCULAR HEMOGLOBIN 27.7 pg (27.0-33.0); MEAN CORPUSCULAR VOLUME 89.6 fl (80.0-96.0); MONO # 1.1 10^3/uL (0.0-0.8); NEUTROPHILS # 12.8 10^3/uL (1.5-8.5); NEUTROPHILS % 82.9 % (36.0-66.0); PLATELET COUNT, AUTOMATED 269 10^3/uL (150-450); PROTHROMBIN TIME 14.1 SECONDS (12.5-14.5); RED BLOOD COUNT 5.19 10^6/uL (4.30-6.10); WHITE BLOOD COUNT 15.4 10^3/uL (4.0-10.0)
[2024-03-21 09:30] LABS: ALBUMIN 3.3 G/DL (3.2-5.2); ALKALINE PHOSPHATASE 86 U/L (46-116); ALT/SGPT 17 U/L (7.0-40); AST/SGOT 12 U/L (<34); BILIRUBIN,DIRECT 0.3 MG/DL (<0.4); BILIRUBIN,TOTAL 0.9 MG/DL (0.3-1.2); BLOOD UREA NITROGEN 16 MG/DL (9-23); CALCIUM LEVEL 8.4 MG/DL (8.3-10.6); CARBON DIOXIDE LEVEL 30 MMOL/L (20-31); CHLORIDE LEVEL 100 MMOL/L (98-107); CREATININE FOR GFR 0.78 MG/DL (0.70-1.30); GLOMERULAR FILTRATION RATE > 60.0 (>49); GLUCOSE, FASTING 221 MG/DL (74-106); POTASSIUM SERUM 4.2 MMOL/L (3.5-5.1); SODIUM LEVEL 136 MMOL/L (136-145); TOTAL PROTEIN 6.4 G/DL (5.7-8.2)
[2024-03-21 09:32] LABS: THYROID STIMULATING HORMONE 2.478 uIU/ML (0.55-4.78)
[2024-03-21] MEDS: LevoFLOXacin IV 750 MG in IV 1 EA IV ONE (09:46)
[2024-03-21] MEDS ORDERED: ISOVUE-370 76% 100ML VIAL As Ordered ONE (10:07)
[2024-03-21 10:18] LABS: ETHYL ALCOHOL (ETHANOL) < 0.003 % (0.000-0.010)
[2024-03-21 10:20] LABS: SALICYLATE LEVEL < 3.0 MG/DL (<30)
[2024-03-21 10:49] LABS: OSMOLALITY SERUM 294 MOSM/KG (280-301)
[2024-03-21] MEDS ORDERED: [UNRECOGNIZED DRUG - OTHER] (11:08)
[2024-03-21] MEDS ORDERED: HOME MED LIST COMPLETE! XX SCH (11:10)
[2024-03-21] MEDS: NS 1,000 ML IV ONE (11:23)
[2024-03-21 11:29] LABS: ABG BASE EXCESS -1.3 (-2.0-2.0); ABG HCO3 24.9 MMOL/L (22.0-26.0); ABG PARTIAL PRESSURE CO2 47.6 mmHg (35.0-45.0); ABG PARTIAL PRESSURE O2 96.4 mmHg (75.0-100.0); ABG STANDARD HCO3 23.4 MMOL/L. (22.0-26.0); ABG TOTAL CO2 26.4 MMOL/L (23.0-31.0); ABG pH (ARTERIAL) 7.337 UNITS (7.350-7.450)
[2024-03-21] MEDS: IPRATROPIUM 0.02% SOLN 0.5MG 2.5ML NEB NEB ONE (13:19)
[2024-03-21 13:52] LABS: AMPHETAMINES LEVEL URINE NEGATIVE (NEGATIVE); BARBITURATES URINE NEGATIVE (NEGATIVE); BENZODIAZEPINES URINE NEGATIVE (NEGATIVE); COCAINE METABOLITE URINE NEGATIVE (NEGATIVE); METHADONE URINE NEGATIVE (NEGATIVE); PHENCYCLIDINE URINE NEGATIVE (NEGATIVE)
[2024-03-21 13:59] LABS: CANNABINOIDS URINE POSITIVE (NEGATIVE); OPIATES URINE POSITIVE (NEGATIVE)
[2024-03-21 14:35] LABS: D-DIMER QUANT 0.5 ug/mL (<0.5); INR 1.11; PARTIAL THROMBOPLASTIN TIME 26.5 SECONDS (24.8-34.2); PROTHROMBIN TIME 13.9 SECONDS (12.5-14.5)
[2024-03-21 14:44] LABS: MAGNESIUM LEVEL 1.7 MG/DL (1.8-2.4)
[2024-03-21 14:50] LABS: FERRITIN 143.4 NG/ML (10.5-307.3)
[2024-03-21] MEDS: DULoxetine 30MG CAPSULE (CYMBALTA) PO SCH ×2 (14:51→20:22)
[2024-03-21] MEDS: ATORVASTATIN 10 MG TAB PO SCH (14:51)
[2024-03-21] MEDS: PREGABALIN 50 MG CAP (LYRICA) PO SCH (17:40)
[2024-03-21] MEDS: REMDESIVIR 200 MG in NS 250 ML IV ONE (18:42)
[2024-03-21 19:47] VITALS: BP 146/65; TEMP 97.6; O2SAT 97
[2024-03-21] MEDS: METOPROLOL TART 25 MG TABLET PO SCH (20:22)
[2024-03-21] MEDS ORDERED: DEXTROSE 50% 50ML SYRINGE IV PRN (21:45)
[2024-03-21] MEDS ORDERED: GLUCOSE 4 GM CHEW PO PRN (21:45)
[2024-03-21] MEDS ORDERED: GLUCAGON INJ 1MG VIAL SC PRN (21:45)
[2024-03-21 23:13] VITALS: BP 117/90; TEMP 97.2; O2SAT 96
[2024-03-22] VITALS (13 sets, daily range): BP systolic 108–144; BP diastolic 62–82; TEMP 97.9–98.2; O2SAT 90–100
[2024-03-22] MEDS: IPRATROPIUM 0.5MG/ALBUTEROL 2.5MG INH SOL UD 3ML (DUONEB) INH PRN (01:31)
[2024-03-22 06:18] LABS: BASO % 0.2 % (0.0-1.0); EOS % 0.3 % (0.0-3.0); HEMATOCRIT 41.1 % (42.0-52.0); HEMOGLOBIN 13.2 g/dl (13.5-17.5); LYMPH # 0.5 10^3/uL (1.5-5.0); LYMPH % 3.8 % (24.0-44.0); MEAN CORPUSCULAR HEMOGLOBIN 28.4 pg (27.0-33.0); MEAN CORPUSCULAR HGB CONC 32.1 g/dl (32.0-36.5); MEAN CORPUSCULAR VOLUME 88.4 fl (80.0-96.0); MONO # 0.7 10^3/uL (0.0-0.8); MONO % 5.9 % (2.0-8.0); NEUTROPHILS # 10.7 10^3/uL (1.5-8.5); NEUTROPHILS % 89.1 % (36.0-66.0); RED BLOOD COUNT 4.65 10^6/uL (4.30-6.10)
[2024-03-22 06:26] LABS: ALKALINE PHOSPHATASE 76 U/L (46-116); ALT/SGPT 16 U/L (7.0-40); AST/SGOT 21 U/L (<34); BILIRUBIN,DIRECT 0.1 MG/DL (<0.4); BILIRUBIN,TOTAL 0.4 MG/DL (0.3-1.2); BLOOD UREA NITROGEN 18 MG/DL (9-23); CALCIUM LEVEL 8.6 MG/DL (8.3-10.6); CARBON DIOXIDE LEVEL 30 MMOL/L (20-31); CHLORIDE LEVEL 101 MMOL/L (98-107); CREATININE FOR GFR 0.71 MG/DL (0.70-1.30); GLOMERULAR FILTRATION RATE > 60.0 (>49); GLUCOSE, FASTING 243 MG/DL (74-106); POTASSIUM SERUM 5.4 MMOL/L (3.5-5.1); SODIUM LEVEL 136 MMOL/L (136-145); TOTAL PROTEIN 6.3 G/DL (5.7-8.2)
[2024-03-22] MEDS: INSULIN LISPRO (NovoLOG) PER UNIT SC SCH ×2 (08:15→21:03)
[2024-03-22] MEDS: ENOXAPARIN 40MG/0.4ML SYRINGE (J1650 PER 10MG) SC SCH (08:16)
[2024-03-22] MEDS: TAMSULOSIN 0.4 MG CAP PO SCH (08:17)
[2024-03-22] MEDS: MORPHINE 2 MG/ML 1ML VIAL IV PRN (08:33)
[2024-03-22] MEDS: ALBUTEROL SULFATE 2.5MG/0.5ML INH NEB SOLN NEB ONE (08:48)
[2024-03-22] MEDS: BUDESONIDE 180MCG INHALER (PULMICORT FLEXHALER) INH SCH (09:08)
[2024-03-22 10:37] LABS: PROCALCITONIN 0.4 ng/ml
[2024-03-22 10:48] LABS: BLOOD UREA NITROGEN 21 MG/DL (9-23); CALCIUM LEVEL 8.9 MG/DL (8.3-10.6); CARBON DIOXIDE LEVEL 36 MMOL/L (20-31); CHLORIDE LEVEL 103 MMOL/L (98-107); CREATININE FOR GFR 0.72 MG/DL (0.70-1.30); GLOMERULAR FILTRATION RATE > 60.0 (>49); GLUCOSE, FASTING 234 MG/DL (74-106); POTASSIUM SERUM 4.5 MMOL/L (3.5-5.1); SODIUM LEVEL 140 MMOL/L (136-145)
[2024-03-22] MEDS: NORCO, ANEXSIA 5/325MG TABLET (HYDROcodone/ACETAMINOPHEN) PO PRN (15:50)
[2024-03-22] MEDS: REMDESIVIR 100 MG in NS 250 ML IV SCH (17:45)
[2024-03-22] MEDS: ALBUTEROL SULFATE 2.5MG/0.5ML INH NEB SOLN INH PRN (19:18)
[2024-03-22] MEDS: guaiFENesin ER TABLET 600 MG TAB PO SCH (21:00)
[2024-03-23 04:01] VITALS: BP 147/82; TEMP 97.4; O2SAT 98
[2024-03-23 08:09] VITALS: BP 145/85; TEMP 97; O2SAT 98
[2024-03-23 08:35] LABS: BASO % 0.2 % (0.0-1.0); EOS % 0.3 % (0.0-3.0); HEMATOCRIT 40.1 % (42.0-52.0); HEMOGLOBIN 12.8 g/dl (13.5-17.5); LYMPH # 0.6 10^3/uL (1.5-5.0); LYMPH % 4.3 % (24.0-44.0); MEAN CORPUSCULAR HEMOGLOBIN 28.1 pg (27.0-33.0); MEAN CORPUSCULAR HGB CONC 31.9 g/dl (32.0-36.5); MEAN CORPUSCULAR VOLUME 87.9 fl (80.0-96.0); MONO # 1.3 10^3/uL (0.0-0.8); MONO % 9.6 % (2.0-8.0); NEUTROPHILS # 11.4 10^3/uL (1.5-8.5); NEUTROPHILS % 84.9 % (36.0-66.0); PLATELET COUNT, AUTOMATED 271 10^3/uL (150-450); RED BLOOD COUNT 4.56 10^6/uL (4.30-6.10); WHITE BLOOD COUNT 13.4 10^3/uL (4.0-10.0)
[2024-03-23 09:04] LABS: BLOOD UREA NITROGEN 20 MG/DL (9-23); CALCIUM LEVEL 8.7 MG/DL (8.3-10.6); CARBON DIOXIDE LEVEL 34 MMOL/L (20-31); CHLORIDE LEVEL 105 MMOL/L (98-107); CREATININE FOR GFR 0.77 MG/DL (0.70-1.30); GLOMERULAR FILTRATION RATE > 60.0 (>49); GLUCOSE, FASTING 211 MG/DL (74-106); SODIUM LEVEL 142 MMOL/L (136-145)
[2024-03-23] MEDS: LEVEMIR (INSULIN DETEMIR) 1 UNITS/0.01ML SC SCH (11:26)
[2024-03-23 12:10] VITALS: BP 123/71; TEMP 98.4; O2SAT 94
[2024-03-23 12:11] VITALS: BP 123/71; O2SAT 94
[2024-03-23] MEDS: ALPRAZolam 0.25 MG TAB PO ONE (12:12)
[2024-03-23] MEDS: IPRATROPIUM 0.02% SOLN 0.5MG 2.5ML NEB INH SCH (14:31)
[2024-03-23] MEDS: LEVALBUTEROL 1.25MG 0.5ML CONCENTRATE NEB INH SCH (14:31)
[2024-03-23] MEDS: BUDESONIDE 0.5 MG/2 ML INHALATION SUSPENSION NEB SCH (19:14)
[2024-03-23 20:37] VITALS: BP 169/77; TEMP 98.6; O2SAT 97
[2024-03-23] MEDS: methylPREDNISolone 40MG 1ML VIAL IV SCH (20:47)
[2024-03-24 04:38] VITALS: BP 145/89; TEMP 97; O2SAT 98
[2024-03-24 08:05] VITALS: BP 157/91; TEMP 97.7; O2SAT 98
[2024-03-24 08:34] LABS: BASO % 0.1 % (0.0-1.0); HEMATOCRIT 41.9 % (42.0-52.0); HEMOGLOBIN 12.8 g/dl (13.5-17.5); LYMPH # 0.5 10^3/uL (1.5-5.0); LYMPH % 5.4 % (24.0-44.0); MEAN CORPUSCULAR HEMOGLOBIN 27.6 pg (27.0-33.0); MEAN CORPUSCULAR HGB CONC 30.5 g/dl (32.0-36.5); MEAN CORPUSCULAR VOLUME 90.5 fl (80.0-96.0); MONO % 10.2 % (2.0-8.0); NEUTROPHILS # 7.8 10^3/uL (1.5-8.5); NEUTROPHILS % 83.4 % (36.0-66.0); PLATELET COUNT, AUTOMATED 258 10^3/uL (150-450); RED BLOOD COUNT 4.63 10^6/uL (4.30-6.10); WHITE BLOOD COUNT 9.3 10^3/uL (4.0-10.0)
[2024-03-24 08:55] LABS: BLOOD UREA NITROGEN 16 MG/DL (9-23); CALCIUM LEVEL 8.5 MG/DL (8.3-10.6); CARBON DIOXIDE LEVEL 30 MMOL/L (20-31); CHLORIDE LEVEL 107 MMOL/L (98-107); CREATININE FOR GFR 0.63 MG/DL (0.70-1.30); GLOMERULAR FILTRATION RATE > 60.0 (>49); GLUCOSE, FASTING 230 MG/DL (74-106); POTASSIUM SERUM 5.1 MMOL/L (3.5-5.1); SODIUM LEVEL 140 MMOL/L (136-145)
[2024-03-24 16:13] VITALS: BP 129/87; TEMP 97.5; O2SAT 97
[2024-03-24 18:05] VITALS: BP 145/98; TEMP 97.7; O2SAT 93
[2024-03-24] MEDS: ALPRAZolam 0.25 MG TAB PO PRN (18:17)
[2024-03-24 19:40] VITALS: BP 151/97; TEMP 97.9; O2SAT 98
[2024-03-24] MEDS: NORCO, ANEXSIA 5/325MG TABLET (HYDROcodone/ACETAMINOPHEN) PO ONE (20:23)
[2024-03-25 03:30] VITALS: BP 146/99; TEMP 97.5; O2SAT 95
[2024-03-25 05:43] LABS: BASO % 0.2 % (0.0-1.0); EOS % 0.1 % (0.0-3.0); HEMATOCRIT 42.7 % (42.0-52.0); LYMPH # 0.7 10^3/uL (1.5-5.0); MEAN CORPUSCULAR HEMOGLOBIN 27.4 pg (27.0-33.0); MEAN CORPUSCULAR HGB CONC 30.4 g/dl (32.0-36.5); MEAN CORPUSCULAR VOLUME 89.9 fl (80.0-96.0); MONO # 0.8 10^3/uL (0.0-0.8); MONO % 9.1 % (2.0-8.0); NEUTROPHILS # 7.6 10^3/uL (1.5-8.5); NEUTROPHILS % 82.8 % (36.0-66.0); PLATELET COUNT, AUTOMATED 240 10^3/uL (150-450); RED BLOOD COUNT 4.75 10^6/uL (4.30-6.10); WHITE BLOOD COUNT 9.2 10^3/uL (4.0-10.0)
[2024-03-25 06:11] LABS: BLOOD UREA NITROGEN 19 MG/DL (9-23); CALCIUM LEVEL 8.9 MG/DL (8.3-10.6); CARBON DIOXIDE LEVEL 33 MMOL/L (20-31); CHLORIDE LEVEL 103 MMOL/L (98-107); GLOMERULAR FILTRATION RATE > 60.0 (>49); GLUCOSE, FASTING 258 MG/DL (74-106); POTASSIUM SERUM 4.7 MMOL/L (3.5-5.1); SODIUM LEVEL 139 MMOL/L (136-145)
[2024-03-25] MEDS: VITAMIN D 50,000 UNITS CAPSULE (ERGOCALCIFEROL 1.25MG) PO SCH (09:53)
[2024-03-25 09:54] VITALS: BP 146/99
[2024-03-25] MEDS ORDERED: ALPR0.25 PO (10:59)
[2024-03-25] MEDS ORDERED: PRED10TA2 PO (11:01)
[2024-03-25] MEDS ORDERED: LEVAINH INH (11:03)
[2024-03-25 12:00] VITALS: BP 105/69; TEMP 97.2; O2SAT 95
== END 2024-03-25 13:10 | disposition home health service (06) | DRG 177 ==
LOC: M ED 08:37 → EDBD 08:37 → M ED INP 12:51 → M PCU 19:58 → M MSPAV 03-24 18:01
PROVIDERS: ADMIT Family Medicine; ATTEND Internal Medicine
DX: U07.1 COVID-19 (principal); J96.21 Acute and chronic respiratory failure with hypoxia; J96.22 Acute and chronic respiratory failure with hypercapnia; J44.1 Chronic obstructive pulmonary disease with (acute) exacerbation; E11.40 Type 2 diabetes mellitus with diabetic neuropathy, unspecified; E78.5 Hyperlipidemia, unspecified; G89.4 Chronic pain syndrome; N40.0 Benign prostatic hyperplasia without lower urinary tract symptoms; E66.01 Morbid (severe) obesity due to excess calories; I10 Essential (primary) hypertension; E55.9 Vitamin D deficiency, unspecified; Z68.39 Body mass index [BMI] 39.0-39.9, adult; Z99.81 Dependence on supplemental oxygen; Z88.0 Allergy status to penicillin; Z79.891 Long term (current) use of opiate analgesic; Z88.6 Allergy status to analgesic agent; Z79.899 Other long term (current) drug therapy; Z88.5 Allergy status to narcotic agent; Z88.1 Allergy status to other antibiotic agents; Z88.8 Allergy status to other drugs, medicaments and biological substances; Z91.030 Bee allergy status; Z87.891 Personal history of nicotine dependence

== ENCOUNTER 2024-04-11 13:24 | Inpatient (IN) | payer MEDICARE ==
[~2024-04-11] VITALS: Ht 177.8 cm; Wt 115.1 kg
[~2024-04-11 13:24] MED LIST changes: +ALPR0.25 PO; -DOXY-323 PO; +DOXY-441 PO; +LEVAINH INH; +[UNRECOGNIZED DRUG - OTHER]
[2024-04-11 13:59] LABS: BASO # 0.1 10^3/uL (0.0-0.2); BASO % 0.7 % (0.0-1.0); EOS # 0.3 10^3/uL (0.0-0.5); HEMATOCRIT 42.7 % (42.0-52.0); HEMOGLOBIN 13.4 g/dl (13.5-17.5); LYMPH # 1.3 10^3/uL (1.5-5.0); LYMPH % 9.1 % (24.0-44.0); MEAN CORPUSCULAR HEMOGLOBIN 28.1 pg (27.0-33.0); MEAN CORPUSCULAR HGB CONC 31.4 g/dl (32.0-36.5); MEAN CORPUSCULAR VOLUME 89.5 fl (80.0-96.0); MONO # 1.1 10^3/uL (0.0-0.8); NEUTROPHILS % 79.7 % (36.0-66.0); PLATELET COUNT, AUTOMATED 280 10^3/uL (150-450); RED BLOOD COUNT 4.77 10^6/uL (4.30-6.10); WHITE BLOOD COUNT 13.8 10^3/uL (4.0-10.0)
[2024-04-11 14:10] LABS: ABG BASE EXCESS 5.8 (-2.0-2.0); ABG HCO3 31.2 MMOL/L (22.0-26.0); ABG O2 SATURATION 93.6 % (95.0-99.0); ABG PARTIAL PRESSURE CO2 48.1 mmHg (35.0-45.0); ABG PARTIAL PRESSURE O2 67.4 mmHg (75.0-100.0); ABG STANDARD HCO3 29.6 MMOL/L. (22.0-26.0); ABG TOTAL CO2 32.7 MMOL/L (23.0-31.0)
[2024-04-11 14:32] LABS: ALBUMIN 3.1 G/DL (3.2-5.2); ALKALINE PHOSPHATASE 94 U/L (46-116); ALT/SGPT 18 U/L (7.0-40); AST/SGOT 14 U/L (<34); BILIRUBIN,DIRECT 0.2 MG/DL (<0.4); BILIRUBIN,TOTAL 0.6 MG/DL (0.3-1.2); BLOOD UREA NITROGEN 13 MG/DL (9-23); CALCIUM LEVEL 9.4 MG/DL (8.3-10.6); CARBON DIOXIDE LEVEL 33 MMOL/L (20-31); CHLORIDE LEVEL 100 MMOL/L (98-107); CREATININE FOR GFR 0.65 MG/DL (0.70-1.30); GLOMERULAR FILTRATION RATE > 60.0 (>49); GLUCOSE, FASTING 259 MG/DL (74-106); POTASSIUM SERUM 4.1 MMOL/L (3.5-5.1); SODIUM LEVEL 139 MMOL/L (136-145); TOTAL PROTEIN 6.7 G/DL (5.7-8.2)
[2024-04-11 14:51] LABS: CK-MB VALUE MASS 1.4 NG/ML (<3.6)
[2024-04-11 14:58] LABS: CPK CREATINE PHOSPHOKINASE 78 U/L (46-171); MB/CK RELATIVE INDEX 1.79 (< OR =4)
[2024-04-11] MEDS ORDERED: ISOVUE-370 76% 100ML VIAL As Ordered ONE (15:03)
[2024-04-11 15:35] LABS: CK-MB VALUE MASS 1.7 NG/ML (<3.6)
[2024-04-11 15:40] LABS: MB/CK RELATIVE INDEX 2.09 (< OR =4)
[2024-04-11] MEDS: IPRATROPIUM 0.5MG/ALBUTEROL 2.5MG INH SOL UD 3ML (DUONEB) NEB ONE (16:47)
[2024-04-11] MEDS: LevoFLOXacin IV 750 MG in IV 1 EA IV ONE (17:02)
[2024-04-11] MEDS ORDERED: ALPR0.25 PO (17:26)
[2024-04-11] MEDS ORDERED: HOME MED LIST COMPLETE! XX SCH (17:30)
[2024-04-11 17:34] LABS: PROCALCITONIN 0.09 ng/ml
[2024-04-11] MEDS ORDERED: **SFRHE** EPINEPHrine (EPIPEN) 0.3MG/0.3ML SYRINGE XX PRN (17:35)
[2024-04-11] MEDS: IPRATROPIUM 0.02% SOLN 0.5MG 2.5ML NEB NEB SCH (19:22)
[2024-04-11 19:58] LABS: CREATININE FOR GFR 0.66 MG/DL (0.70-1.30); GLOMERULAR FILTRATION RATE > 60.0 (>49)
[2024-04-11] MEDS ORDERED: PILL CUTTER 1 EACH XX ONE (22:00)
[2024-04-11] MEDS: MORPHINE 30 MG TAB **MSIR PO SCH (22:03)
[2024-04-11] MEDS: DULoxetine 30MG CAPSULE (CYMBALTA) PO SCH (22:03)
[2024-04-11] MEDS: TAMSULOSIN 0.4 MG CAP PO SCH (22:03)
[2024-04-11] MEDS: PREGABALIN 50 MG CAP (LYRICA) PO SCH (22:03)
[2024-04-11] MEDS: ATORVASTATIN 10 MG TAB PO SCH (22:04)
[2024-04-11] MEDS: METOPROLOL TART 25 MG TABLET PO SCH (22:04)
[2024-04-12 08:26] LABS: HEMATOCRIT 40.6 % (42.0-52.0); MEAN CORPUSCULAR HEMOGLOBIN 28.3 pg (27.0-33.0); MEAN CORPUSCULAR VOLUME 88.3 fl (80.0-96.0); PLATELET COUNT, AUTOMATED 294 10^3/uL (150-450); WHITE BLOOD COUNT 12.1 10^3/uL (4.0-10.0)
[2024-04-12] MEDS: DULoxetine 30MG CAPSULE (CYMBALTA) PO SCH (08:50)
[2024-04-12] MEDS: predniSONE 20 MG TAB PO SCH (08:51)
[2024-04-12] MEDS ORDERED: ENOXAPARIN 40MG/0.4ML SYRINGE (J1650 PER 10MG) SC SCH (09:00)
[2024-04-12] MEDS: ENOXAPARIN 120MG/0.8ML SYRINGE SC SCH (09:00)
[2024-04-12 09:07] LABS: BLOOD UREA NITROGEN 13 MG/DL (9-23); CALCIUM LEVEL 8.8 MG/DL (8.3-10.6); CARBON DIOXIDE LEVEL 31 MMOL/L (20-31); CHLORIDE LEVEL 102 MMOL/L (98-107); CREATININE FOR GFR 0.65 MG/DL (0.70-1.30); GLOMERULAR FILTRATION RATE > 60.0 (>49); GLUCOSE, FASTING 249 MG/DL (74-106); POTASSIUM SERUM 4.5 MMOL/L (3.5-5.1); SODIUM LEVEL 137 MMOL/L (136-145)
[2024-04-12] MEDS ORDERED: GLUCAGON INJ 1MG VIAL SC PRN (09:20)
[2024-04-12] MEDS ORDERED: DEXTROSE 50% 50ML SYRINGE IV PRN (09:20)
[2024-04-12] MEDS ORDERED: GLUCOSE 4 GM CHEW PO PRN (09:20)
[2024-04-12] MEDS: INSULIN LISPRO (NovoLOG) PER UNIT SC SCH ×2 (09:39→21:58)
[2024-04-12] MEDS: NORCO, ANEXSIA 5/325MG TABLET (HYDROcodone/ACETAMINOPHEN) PO PRN (09:52)
[2024-04-12] MEDS ORDERED: ALBUTEROL SULFATE 2.5MG/0.5ML INH NEB SOLN As Ordered ONE (15:41)
[2024-04-12 17:12] VITALS: BP 120/69; TEMP 97.7; O2SAT 86
[2024-04-12] MEDS: LevoFLOXacin IV 750 MG in IV 1 EA IV SCH (18:26)
[2024-04-12 19:47] VITALS: BP 127/73; TEMP 97.2; O2SAT 92
[2024-04-13] VITALS (8 sets, daily range): BP systolic 113–144; BP diastolic 71–89; TEMP 96–97.8; O2SAT 92–96
[2024-04-13] MEDS: guaiFENesin ER TABLET 600 MG TAB PO SCH (09:12)
[2024-04-13] MEDS: SODIUM CHLORIDE HYPERTONIC 3% 4ML NEB SOL INH SCH (11:14)
[2024-04-13] MEDS: LEVALBUTEROL 1.25MG 0.5ML CONCENTRATE NEB INH PRN (11:15)
[2024-04-13 11:45] LABS: BASO # 0.1 10^3/uL (0.0-0.2); BASO % 0.4 % (0.0-1.0); EOS # 0.2 10^3/uL (0.0-0.5); HEMATOCRIT 38.7 % (42.0-52.0); HEMOGLOBIN 12.1 g/dl (13.5-17.5); LYMPH # 0.7 10^3/uL (1.5-5.0); LYMPH % 6.1 % (24.0-44.0); MEAN CORPUSCULAR HEMOGLOBIN 28.2 pg (27.0-33.0); MEAN CORPUSCULAR HGB CONC 31.3 g/dl (32.0-36.5); MEAN CORPUSCULAR VOLUME 90.2 fl (80.0-96.0); MONO # 0.7 10^3/uL (0.0-0.8); MONO % 6.6 % (2.0-8.0); NEUTROPHILS # 9.4 10^3/uL (1.5-8.5); NEUTROPHILS % 84.4 % (36.0-66.0); PLATELET COUNT, AUTOMATED 258 10^3/uL (150-450); RED BLOOD COUNT 4.29 10^6/uL (4.30-6.10); WHITE BLOOD COUNT 11.2 10^3/uL (4.0-10.0)
[2024-04-13 12:15] LABS: BLOOD UREA NITROGEN 18 MG/DL (9-23); CALCIUM LEVEL 8.6 MG/DL (8.3-10.6); CARBON DIOXIDE LEVEL 36 MMOL/L (20-31); CHLORIDE LEVEL 105 MMOL/L (98-107); CREATININE FOR GFR 0.83 MG/DL (0.70-1.30); GLOMERULAR FILTRATION RATE > 60.0 (>49); GLUCOSE, FASTING 232 MG/DL (74-106); SODIUM LEVEL 142 MMOL/L (136-145)
[2024-04-13] MEDS: NORCO, ANEXSIA 5/325MG TABLET (HYDROcodone/ACETAMINOPHEN) PO PRN (13:20)
[2024-04-13] MEDS: BACLOFEN 10 MG TAB PO PRN (13:20)
[2024-04-13] MEDS: LevoFLOXacin 750 MG TABLET PO SCH (18:03)
[2024-04-14 04:54] VITALS: BP 123/81; TEMP 97.1; O2SAT 96
[2024-04-14 05:56] LABS: HEMATOCRIT 38.1 % (42.0-52.0); HEMOGLOBIN 11.6 g/dl (13.5-17.5); MEAN CORPUSCULAR HEMOGLOBIN 27.6 pg (27.0-33.0); MEAN CORPUSCULAR HGB CONC 30.4 g/dl (32.0-36.5); MEAN CORPUSCULAR VOLUME 90.7 fl (80.0-96.0); PLATELET COUNT, AUTOMATED 224 10^3/uL (150-450)
[2024-04-14 07:39] VITALS: BP 135/89; TEMP 96.8; O2SAT 97
[2024-04-14 12:13] VITALS: BP 125/76; TEMP 96.9; O2SAT 94
[2024-04-14 15:51] VITALS: BP 121/75; TEMP 97; O2SAT 96
[2024-04-14] MEDS: GLYCOPYRROLATE INJ 0.2 MG/ML 2 ML VIAL NEB SCH (19:21)
[2024-04-14] MEDS: FORMOTEROL FUMARATE 20 MCG/2 ML INHALATION SOLUTION (PERFOROMIST) INH SCH (19:21)
[2024-04-14 19:43] VITALS: BP 126/78; TEMP 97.3; O2SAT 95
[2024-04-15] VITALS (8 sets, daily range): BP systolic 96–144; BP diastolic 58–89; TEMP 97.1–97.7; O2SAT 90–96
[2024-04-15] MEDS: LEVALBUTEROL HFA 45MCG/ACT 15GM INHALER INH PRN (04:44)
[2024-04-15] MEDS: METHYLNALTREXONE BROMIDE 12MG/0.6ML VIAL (RELISTOR) SC ONE (05:31)
[2024-04-15 08:32] LABS: ABG BASE EXCESS 6.1 (-2.0-2.0); ABG HCO3 31.8 MMOL/L (22.0-26.0); ABG O2 SATURATION 93.4 % (95.0-99.0); ABG PARTIAL PRESSURE CO2 50.8 mmHg (35.0-45.0); ABG PARTIAL PRESSURE O2 67.6 mmHg (75.0-100.0); ABG STANDARD HCO3 29.9 MMOL/L. (22.0-26.0); ABG TOTAL CO2 33.4 MMOL/L (23.0-31.0); ABG pH (ARTERIAL) 7.415 UNITS (7.350-7.450)
[2024-04-15] MEDS: SENOKOT S TAB PO SCH (08:44)
[2024-04-15] MEDS: METOPROLOL TART 25 MG TABLET PO SCH (12:43)
[2024-04-15] MEDS ORDERED: MOM 30ML SUSPENSION UDC PO PRN (17:45)
[2024-04-16 03:44] VITALS: BP 120/65; TEMP 97.2; O2SAT 95
[2024-04-16 07:16] LABS: BASO # 0.1 10^3/uL (0.0-0.2); BASO % 0.5 % (0.0-1.0); EOS # 0.2 10^3/uL (0.0-0.5); EOS % 2.4 % (0.0-3.0); HEMATOCRIT 38.6 % (42.0-52.0); HEMOGLOBIN 11.8 g/dl (13.5-17.5); LYMPH # 1.7 10^3/uL (1.5-5.0); LYMPH % 17.6 % (24.0-44.0); MEAN CORPUSCULAR HGB CONC 30.6 g/dl (32.0-36.5); MEAN CORPUSCULAR VOLUME 91.7 fl (80.0-96.0); MONO # 0.7 10^3/uL (0.0-0.8); MONO % 7.3 % (2.0-8.0); NEUTROPHILS # 6.9 10^3/uL (1.5-8.5); NEUTROPHILS % 70.4 % (36.0-66.0); PLATELET COUNT, AUTOMATED 227 10^3/uL (150-450); RED BLOOD COUNT 4.21 10^6/uL (4.30-6.10); WHITE BLOOD COUNT 9.8 10^3/uL (4.0-10.0)
[2024-04-16 07:47] VITALS: BP 132/78; TEMP 97.6; O2SAT 97
[2024-04-16 07:59] LABS: BLOOD UREA NITROGEN 19 MG/DL (9-23); CALCIUM LEVEL 8.2 MG/DL (8.3-10.6); CARBON DIOXIDE LEVEL 36 MMOL/L (20-31); CHLORIDE LEVEL 107 MMOL/L (98-107); CREATININE FOR GFR 0.74 MG/DL (0.70-1.30); GLOMERULAR FILTRATION RATE > 60.0 (>49); GLUCOSE, FASTING 192 MG/DL (74-106); POTASSIUM SERUM 3.7 MMOL/L (3.5-5.1); SODIUM LEVEL 145 MMOL/L (136-145)
[2024-04-16 15:50] VITALS: BP 133/80; TEMP 97.6; O2SAT 97
[2024-04-16 18:37] LABS: PROTEIN S ANTIGEN FREE 103 % normal (57-171); PROTEIN S ANTIGEN TOTAL 126 % normal (70-140)
[2024-04-16 19:51] VITALS: BP 129/76; TEMP 97; O2SAT 94
[2024-04-17 04:25] VITALS: BP 122/77; TEMP 97.5; O2SAT 96
[2024-04-17 06:17] LABS: HEMATOCRIT 37.3 % (42.0-52.0); HEMOGLOBIN 11.4 g/dl (13.5-17.5); MEAN CORPUSCULAR HEMOGLOBIN 27.9 pg (27.0-33.0); MEAN CORPUSCULAR HGB CONC 30.6 g/dl (32.0-36.5); MEAN CORPUSCULAR VOLUME 91.4 fl (80.0-96.0); PLATELET COUNT, AUTOMATED 230 10^3/uL (150-450); RED BLOOD COUNT 4.08 10^6/uL (4.30-6.10); WHITE BLOOD COUNT 10.1 10^3/uL (4.0-10.0)
[2024-04-17 08:26] VITALS: BP 119/71; TEMP 97.1; O2SAT 98
[2024-04-17] MEDS ORDERED: ELIQ5TAB PO (12:55)
[2024-04-17 16:00] VITALS: BP 154/87; TEMP 98; O2SAT 95
[2024-04-17 18:28] LABS: PROTEIN C ANTIGEN 86 % normal (70-140)
[2024-04-17 20:37] VITALS: BP 134/77; TEMP 97.6; O2SAT 94
[2024-04-17 22:35] VITALS: BP 112/55; TEMP 97.2; O2SAT 95
[2024-04-18 04:30] VITALS: BP 112/72; TEMP 96.9; O2SAT 93
[2024-04-18 07:47] LABS: URINE STREP PNEUMONIAE ANTIGEN NOT DETECTED (NOT DETECT)
[2024-04-18] MEDS: SODIUM CHLORIDE HYPERTONIC 3% 4ML NEB SOL INH SCH (08:31)
[2024-04-18] MEDS ORDERED: METO1TAB87 PO (10:59)
[2024-04-18 11:18] VITALS: BP 131/69; TEMP 97.2; O2SAT 95
[2024-04-18] MEDS: FLUBLOK(EGGFREE) TRIVAL(24-25) VACCINE PF 0.5ML SYRINGE 18YRS & OLDER IM.IMMUN ONE (11:57)
[2024-04-18 13:30] VITALS: BP 123/79
[2024-04-19 02:38] LABS: ANTI THROMBIN 3 ANTIGEN IMMUNO 64 % normal (80-120); ANTI THROMBIN 3 FUNCT ACTIVITY 90 % normal (80-135)
[2024-04-20 20:47] LABS: FACTOR V LEIDEN FOR MEDINET NEGATIVE
[2024-04-20 21:20] LABS: FACTOR II PROTHROMBIN GENE AN NEGATIVE
== END 2024-04-18 14:53 | disposition home health service (06) | DRG 178 ==
LOC: M ED 13:24 → EDBD 13:24 → M ED INP 13:25 → M PCU 04-12 17:05 → OBSVTOIN 04-13 11:17 → M PCU 04-14 22:38 → M MS4PR 04-17 22:34
PROVIDERS: ADMIT Internal Medicine; ATTEND Internal Medicine
PROC: B246ZZZ Ultrasonography of Right and Left Heart (ICD-10-PCS; principal; 2024-04-15)
DX: J15.69 Pneumonia due to other Gram-negative bacteria (principal); J44.0 Chronic obstructive pulmonary disease with (acute) lower respiratory infection; J96.11 Chronic respiratory failure with hypoxia; J44.1 Chronic obstructive pulmonary disease with (acute) exacerbation; D68.59 Other primary thrombophilia; E78.5 Hyperlipidemia, unspecified; E11.40 Type 2 diabetes mellitus with diabetic neuropathy, unspecified; E66.9 Obesity, unspecified; Z99.81 Dependence on supplemental oxygen; N40.0 Benign prostatic hyperplasia without lower urinary tract symptoms; G89.29 Other chronic pain; I10 Essential (primary) hypertension; D73.5 Infarction of spleen; Z79.4 Long term (current) use of insulin; Z79.899 Other long term (current) drug therapy; Z88.0 Allergy status to penicillin; Z88.6 Allergy status to analgesic agent; Z88.5 Allergy status to narcotic agent; Z88.8 Allergy status to other drugs, medicaments and biological substances; Z91.030 Bee allergy status; Z88.1 Allergy status to other antibiotic agents; Z86.16 Personal history of COVID-19; Z68.35 Body mass index [BMI] 35.0-35.9, adult

== ENCOUNTER 2024-05-29 16:04 | Inpatient (IN) | payer MEDICARE ==
[~2024-05-29] VITALS: Ht 170.2 cm; Wt 106.5 kg
[~2024-05-29 16:04] MED LIST changes: +ELIQ5TAB PO; +LEVA15HF2 INH; -LEVAINH INH
[2024-05-29] MEDS: IPRATROPIUM 0.5MG/ALBUTEROL 2.5MG INH SOL UD 3ML (DUONEB) NEB PRN (17:17)
[2024-05-29 17:25] LABS: BASO # 0.1 10^3/uL (0.0-0.2); BASO % 0.5 % (0.0-1.0); EOS # 0.2 10^3/uL (0.0-0.5); EOS % 1.4 % (0.0-3.0); HEMATOCRIT 44.8 % (42.0-52.0); HEMOGLOBIN 13.6 g/dl (13.5-17.5); LYMPH # 1.3 10^3/uL (1.5-5.0); LYMPH % 8.6 % (24.0-44.0); MEAN CORPUSCULAR HEMOGLOBIN 27.7 pg (27.0-33.0); MEAN CORPUSCULAR HGB CONC 30.4 g/dl (32.0-36.5); MEAN CORPUSCULAR VOLUME 91.2 fl (80.0-96.0); MONO # 1.2 10^3/uL (0.0-0.8); MONO % 7.5 % (2.0-8.0); NEUTROPHILS # 12.6 10^3/uL (1.5-8.5); NEUTROPHILS % 81.4 % (36.0-66.0); PLATELET COUNT, AUTOMATED 311 10^3/uL (150-450); RED BLOOD COUNT 4.91 10^6/uL (4.30-6.10); WHITE BLOOD COUNT 15.4 10^3/uL (4.0-10.0)
[2024-05-29 17:38] LABS: INR 0.95; PARTIAL THROMBOPLASTIN TIME 26.7 SECONDS (24.8-34.2)
[2024-05-29 17:44] LABS: ABG BASE EXCESS 7.8 (-2.0-2.0); ABG HCO3 34.5 MMOL/L (22.0-26.0); ABG O2 SATURATION 94.9 % (95.0-99.0); ABG PARTIAL PRESSURE CO2 56.6 mmHg (35.0-45.0); ABG STANDARD HCO3 31.6 MMOL/L. (22.0-26.0); ABG TOTAL CO2 36.2 MMOL/L (23.0-31.0); ABG pH (ARTERIAL) 7.403 UNITS (7.350-7.450)
[2024-05-29 17:56] LABS: CPK CREATINE PHOSPHOKINASE 26 U/L (46-171)
[2024-05-29 18:01] LABS: ALKALINE PHOSPHATASE 88 U/L (40-129); ALT/SGPT 18 U/L (7.0-40); AST/SGOT < 8 U/L (<34); BILIRUBIN,DIRECT 0.3 MG/DL (<0.4); BILIRUBIN,TOTAL 0.8 MG/DL (0.3-1.2); BLOOD UREA NITROGEN 15 MG/DL (9-23); CALCIUM LEVEL 9.3 MG/DL (8.3-10.6); CARBON DIOXIDE LEVEL 34 MMOL/L (20-31); CHLORIDE LEVEL 101 MMOL/L (98-107); CK-MB VALUE MASS < 1.0 NG/ML (<3.6); CREATININE FOR GFR 0.55 MG/DL (0.70-1.30); GLOMERULAR FILTRATION RATE > 60.0 (>49); GLUCOSE, FASTING 251 MG/DL (74-106); MB/CK RELATIVE INDEX 3.84 (< OR =4); POTASSIUM SERUM 4.4 MMOL/L (3.5-5.1); SODIUM LEVEL 139 MMOL/L (136-145); THYROID STIMULATING HORMONE 1.348 uIU/ML (0.55-4.78); TOTAL PROTEIN 6.6 G/DL (5.7-8.2)
[2024-05-29] MEDS ORDERED: ISOVUE-370 76% 100ML VIAL As Ordered ONE (18:26)
[2024-05-29 18:59] LABS: CK-MB VALUE MASS < 1.0 NG/ML (<3.6)
[2024-05-29 19:00] LABS: CPK CREATINE PHOSPHOKINASE 32 U/L (46-171); MB/CK RELATIVE INDEX 3.12 (< OR =4)
[2024-05-29] MEDS ORDERED: ELIQ5TAB PO (20:15)
[2024-05-29] MEDS ORDERED: XALA0.007 OU (20:15)
[2024-05-29] MEDS ORDERED: HOME MED LIST COMPLETE! XX SCH (20:20)
[2024-05-29] MEDS: LATANOPROST 0.005% OPHTH SOLN 2.5 ML OU SCH (21:00)
[2024-05-29] MEDS ORDERED: ACETAMINOPHEN 325 MG TAB PO PRN (21:15)
[2024-05-29] MEDS ORDERED: GLUCOSE 4 GM CHEW PO PRN (21:25)
[2024-05-29] MEDS ORDERED: GLUCAGON INJ 1MG VIAL SC PRN (21:25)
[2024-05-29] MEDS ORDERED: DEXTROSE 50% 50ML SYRINGE IV PRN (21:25)
[2024-05-29 21:47] LABS: ABG BASE EXCESS 6.1 (-2.0-2.0); ABG HCO3 30.9 MMOL/L (22.0-26.0); ABG O2 SATURATION 94.5 % (95.0-99.0); ABG PARTIAL PRESSURE CO2 45.2 mmHg (35.0-45.0); ABG PARTIAL PRESSURE O2 67.6 mmHg (75.0-100.0); ABG STANDARD HCO3 29.9 MMOL/L. (22.0-26.0); ABG TOTAL CO2 32.3 MMOL/L (23.0-31.0); ABG pH (ARTERIAL) 7.453 UNITS (7.350-7.450)
[2024-05-29] MEDS: cefTRIAXone SOD 2 GM in DEXTROSE 5% (D5W) ADV/MINI-BAG 50 ML IV SCH (23:17)
[2024-05-29] MEDS: IPRATROPIUM 0.5MG/ALBUTEROL 2.5MG INH SOL UD 3ML (DUONEB) NEB SCH (23:36)
[2024-05-30] MEDS ORDERED: INSULIN LISPRO (NovoLOG) PER UNIT SC SCH
[2024-05-30] MEDS: AZITHROMYCIN INJ 500 MG, VIAL MATE ADAPTER 1 EACH in NS 250 ML IV SCH (00:02)
[2024-05-30] MEDS: ONDANSETRON 4MG ORAL DISINTEGRATING TAB PO PRN (01:05)
[2024-05-30 03:00] VITALS: BP 165/90; TEMP 97; O2SAT 90
[2024-05-30] MEDS: ATORVASTATIN 10 MG TAB PO SCH (03:43)
[2024-05-30] MEDS: NORCO, ANEXSIA 5/325MG TABLET (HYDROcodone/ACETAMINOPHEN) PO PRN (03:44)
[2024-05-30] MEDS: METOPROLOL TART 25 MG TABLET PO ONE (05:14)
[2024-05-30 06:07] LABS: HEMATOCRIT 41.5 % (42.0-52.0); HEMOGLOBIN 12.8 g/dl (13.5-17.5); MEAN CORPUSCULAR HEMOGLOBIN 28.2 pg (27.0-33.0); MEAN CORPUSCULAR HGB CONC 30.8 g/dl (32.0-36.5); MEAN CORPUSCULAR VOLUME 91.4 fl (80.0-96.0); PLATELET COUNT, AUTOMATED 328 10^3/uL (150-450); RED BLOOD COUNT 4.54 10^6/uL (4.30-6.10); WHITE BLOOD COUNT 14.4 10^3/uL (4.0-10.0)
[2024-05-30 06:31] LABS: BLOOD UREA NITROGEN 12 MG/DL (9-23); CALCIUM LEVEL 8.7 MG/DL (8.3-10.6); CARBON DIOXIDE LEVEL 34 MMOL/L (20-31); CHLORIDE LEVEL 101 MMOL/L (98-107); CREATININE FOR GFR 0.61 MG/DL (0.70-1.30); GLOMERULAR FILTRATION RATE > 60.0 (>49); GLUCOSE, FASTING 260 MG/DL (74-106); MAGNESIUM LEVEL 1.8 MG/DL (1.8-2.4); POTASSIUM SERUM 4.3 MMOL/L (3.5-5.1); SODIUM LEVEL 140 MMOL/L (136-145)
[2024-05-30 08:00] VITALS: BP 130/70; TEMP 97; O2SAT 93
[2024-05-30] MEDS ORDERED: DOXYCYCLINE HYCLATE 100 MG in DEXTROSE 5% (D5W) MINI-BAG PLU 100 ML IV SCH (09:00)
[2024-05-30] MEDS ORDERED: predniSONE 20 MG TAB PO SCH (09:00)
[2024-05-30] MEDS ORDERED: ENOXAPARIN 40MG/0.4ML SYRINGE (J1650 PER 10MG) SC SCH (09:00)
[2024-05-30] MEDS: INSULIN LISPRO (NovoLOG) PER UNIT SC SCH ×2 (09:25→21:24)
[2024-05-30] MEDS: methylPREDNISolone 125MG 2ML VIAL IV SCH (09:25)
[2024-05-30] MEDS: PANTOPRAZOLE 40MG VIAL IV SCH (09:25)
[2024-05-30] MEDS: APIXABAN 5 MG TAB (ELIQUIS) PO SCH (09:26)
[2024-05-30] MEDS: TAMSULOSIN 0.4 MG CAP PO SCH (09:26)
[2024-05-30] MEDS: PREGABALIN 50 MG CAP (LYRICA) PO SCH (09:26)
[2024-05-30] MEDS: METOPROLOL TART 12.5 MG PER 1/2 TAB PO SCH (09:28)
[2024-05-30 12:13] VITALS: BP 133/77; TEMP 97.5; O2SAT 92
[2024-05-30] MEDS: DULoxetine 30MG CAPSULE (CYMBALTA) PO SCH ×2 (12:46→20:37)
[2024-05-30] MEDS: TIOTROPIUM INHALER/CAPSULE (SPIRIVA) INH SCH (14:04)
[2024-05-30 16:46] VITALS: BP 135/70; TEMP 97.6; O2SAT 93
[2024-05-30] MEDS: INSULIN LISPRO (NovoLOG) PER UNIT SC STA (19:18)
[2024-05-30] MEDS: LEVEMIR (INSULIN DETEMIR) 1 UNITS/0.01ML SC SCH (19:33)
[2024-05-30 20:03] VITALS: BP 117/60; TEMP 97; O2SAT 90
[2024-05-30] MEDS: MSIR PO SCH (20:39)
[2024-05-30] MEDS: MORPHINE 15 MG PO SCH (20:39)
[2024-05-31 00:14] VITALS: BP 111/57; TEMP 97.9; O2SAT 91
[2024-05-31 03:01] VITALS: BP 115/69; TEMP 97.1; O2SAT 92
[2024-05-31 08:05] VITALS: BP 110/65; TEMP 97.5; O2SAT 93
[2024-05-31 09:37] LABS: BLOOD UREA NITROGEN 17 MG/DL (9-23); CALCIUM LEVEL 8.9 MG/DL (8.3-10.6); CARBON DIOXIDE LEVEL 33 MMOL/L (20-31); CHLORIDE LEVEL 102 MMOL/L (98-107); GLOMERULAR FILTRATION RATE > 60.0 (>49); GLUCOSE, FASTING 312 MG/DL (74-106); POTASSIUM SERUM 4.8 MMOL/L (3.5-5.1); SODIUM LEVEL 139 MMOL/L (136-145)
[2024-05-31] MEDS: NORCO, ANEXSIA 5/325MG TABLET (HYDROcodone/ACETAMINOPHEN) PO PRN (09:41)
[2024-05-31] MEDS: ALPRAZolam 0.25 MG TAB PO PRN (10:28)
[2024-05-31 11:56] VITALS: BP 115/65; TEMP 97.4; O2SAT 92
[2024-05-31 15:53] VITALS: BP 119/70; TEMP 97.2; O2SAT 93
[2024-05-31] MEDS: methylPREDNISolone 125MG 2ML VIAL IV SCH (16:24)
[2024-05-31 20:00] VITALS: BP 125/68; TEMP 98.1; O2SAT 91
[2024-06-01] VITALS: BP 128/81; TEMP 98; O2SAT 93
[2024-06-01] MEDS: HumuLIN N INSULIN (NovoLIN N) PER UNIT SC SCH ×2 (00:39→20:42)
[2024-06-01 04:00] VITALS: BP 126/72; TEMP 98.2; O2SAT 95
[2024-06-01 07:40] LABS: BLOOD UREA NITROGEN 21 MG/DL (9-23); CARBON DIOXIDE LEVEL 33 MMOL/L (20-31); CHLORIDE LEVEL 106 MMOL/L (98-107); CREATININE FOR GFR 0.68 MG/DL (0.70-1.30); GLOMERULAR FILTRATION RATE > 60.0 (>49); GLUCOSE, FASTING 367 MG/DL (74-106); POTASSIUM SERUM 4.4 MMOL/L (3.5-5.1); SODIUM LEVEL 142 MMOL/L (136-145)
[2024-06-01 07:53] VITALS: BP 128/74; TEMP 98; O2SAT 90
[2024-06-01 08:01] LABS: HEMATOCRIT 40.5 % (42.0-52.0); HEMOGLOBIN 12.4 g/dl (13.5-17.5); MEAN CORPUSCULAR HEMOGLOBIN 27.8 pg (27.0-33.0); MEAN CORPUSCULAR HGB CONC 30.6 g/dl (32.0-36.5); MEAN CORPUSCULAR VOLUME 90.8 fl (80.0-96.0); PLATELET COUNT, AUTOMATED 377 10^3/uL (150-450); RED BLOOD COUNT 4.46 10^6/uL (4.30-6.10)
[2024-06-01 11:35] LABS: VENOUS BASE EXCESS 2.3 (-2.0-2.0); VENOUS HCO3 27.9 MMOL/L (23.0-27.0); VENOUS O2 SATURATION 99.1 % (60.0-80.0); VENOUS PARTIAL PRESSURE CO2 47.1 mmHg (38.0-50.0); VENOUS PARTIAL PRESSURE O2 197.9 mmHg (30.0-50.0); VENOUS STANDARD HCO3 26.5 MMOL/L; VENOUS TOTAL CO2 29.3 MMOL/L (24.0-28.0)
[2024-06-01 11:48] VITALS: BP 133/81; TEMP 97.6; O2SAT 93
[2024-06-01] MEDS ORDERED: LEVALBUTEROL 1.25MG 0.5ML CONCENTRATE NEB INH PRN (12:40)
[2024-06-01] MEDS: ADVAIR HFA 115/21MCG INHALER INH SCH (13:01)
[2024-06-01 16:02] VITALS: BP 135/71; TEMP 98.5; O2SAT 96
[2024-06-01] MEDS: IPRATROPIUM 0.02% SOLN 0.5MG 2.5ML NEB NEB SCH (19:39)
[2024-06-01] MEDS: ALBUTEROL SULFATE 2.5MG/0.5ML INH NEB SOLN NEB PRN (19:39)
[2024-06-01 20:11] VITALS: BP 125/75; TEMP 98.6; O2SAT 94
[2024-06-02 04:16] VITALS: BP 143/80; TEMP 96.9; O2SAT 93
[2024-06-02 06:40] LABS: BLOOD UREA NITROGEN 28 MG/DL (9-23); CALCIUM LEVEL 9.3 MG/DL (8.3-10.6); CARBON DIOXIDE LEVEL 34 MMOL/L (20-31); CHLORIDE LEVEL 105 MMOL/L (98-107); GLOMERULAR FILTRATION RATE > 60.0 (>49); GLUCOSE, FASTING 267 MG/DL (74-106); POTASSIUM SERUM 4.5 MMOL/L (3.5-5.1); SODIUM LEVEL 144 MMOL/L (136-145)
[2024-06-02 08:00] VITALS: BP 144/74; TEMP 97.4; O2SAT 96
[2024-06-02] MEDS: METOPROLOL TART 50 MG TAB PO SCH (08:50)
[2024-06-02] MEDS: methylPREDNISolone 125MG 2ML VIAL IV SCH (08:52)
[2024-06-02 11:43] VITALS: BP 125/70; TEMP 98; O2SAT 95
[2024-06-02] MEDS: HumuLIN N INSULIN (NovoLIN N) PER UNIT SC ONE (13:28)
[2024-06-02 16:00] VITALS: BP 126/64; TEMP 97.4; O2SAT 94
[2024-06-02 17:59] VITALS: BP 127/94; TEMP 97.5; O2SAT 94
[2024-06-02 19:20] VITALS: BP 107/75; TEMP 97.7; O2SAT 91
[2024-06-02] MEDS: HumuLIN N INSULIN (NovoLIN N) PER UNIT SC SCH (20:37)
[2024-06-03] VITALS: BP 119/68; TEMP 97.5; O2SAT 89
[2024-06-03 04:00] VITALS: BP 113/75; TEMP 97.2; O2SAT 92
[2024-06-03 05:12] LABS: BLOOD UREA NITROGEN 29 MG/DL (9-23); CALCIUM LEVEL 8.8 MG/DL (8.3-10.6); CARBON DIOXIDE LEVEL 35 MMOL/L (20-31); CHLORIDE LEVEL 106 MMOL/L (98-107); CREATININE FOR GFR 0.72 MG/DL (0.70-1.30); GLOMERULAR FILTRATION RATE > 60.0 (>49); GLUCOSE, FASTING 228 MG/DL (74-106); POTASSIUM SERUM 3.9 MMOL/L (3.5-5.1); SODIUM LEVEL 145 MMOL/L (136-145)
[2024-06-03 08:10] VITALS: O2SAT 87
[2024-06-03 08:12] VITALS: O2SAT 92
[2024-06-03] MEDS: VITAMIN D 50,000 UNITS CAPSULE (ERGOCALCIFEROL 1.25MG) PO SCH (08:15)
[2024-06-03] MEDS ORDERED: IPRA0.00 INH (09:16)
[2024-06-03] MEDS ORDERED: PRED10TA2 PO (09:16)
[2024-06-03] MEDS ORDERED: LOPR1TAB6 PO (09:16)
[2024-06-03] MEDS ORDERED: PRED20TA PO (09:16)
[2024-06-03] MEDS ORDERED: ALPR0.25 PO (09:16)
[2024-06-03] MEDS ORDERED: ADVA115A INH (09:16)
[2024-06-03] MEDS ORDERED: TIOT18INH INH (09:18)
[2024-06-03] MEDS ORDERED: METOPROLOL TART 50 MG TAB PO ONE (10:30)
[2024-06-03] MEDS: predniSONE 50 MG TAB PO SCH (10:48)
[2024-06-03 10:50] VITALS: BP 129/76
[2024-06-03] MEDS: METOPROLOL TART 50 MG TAB PO ONE (10:50)
[2024-06-03 12:00] VITALS: BP 127/86; TEMP 97.5; O2SAT 93
[2024-06-03] MEDS ORDERED: ELIQ5TAB PO (16:09)
== END 2024-06-03 17:03 | disposition home health service (06) | DRG 190 ==
LOC: M ED 16:04 → EDBD 16:04 → M ED INP 21:13 → M PCU 05-30 02:53 → M MSPAV 06-02 17:59
PROVIDERS: ADMIT Student in an Organized Health Care Education/Training Program; ATTEND Student in an Organized Health Care Education/Training Program
DX: J44.1 Chronic obstructive pulmonary disease with (acute) exacerbation (principal); J96.21 Acute and chronic respiratory failure with hypoxia; J96.11 Chronic respiratory failure with hypoxia; D68.59 Other primary thrombophilia; M48.56XA Collapsed vertebra, not elsewhere classified, lumbar region, initial encounter for fracture; I47.19 Other supraventricular tachycardia; Z99.81 Dependence on supplemental oxygen; E78.5 Hyperlipidemia, unspecified; E10.40 Type 1 diabetes mellitus with diabetic neuropathy, unspecified; N40.0 Benign prostatic hyperplasia without lower urinary tract symptoms; E66.9 Obesity, unspecified; I10 Essential (primary) hypertension; J43.9 Emphysema, unspecified; G89.29 Other chronic pain; H40.9 Unspecified glaucoma; F32.A Depression, unspecified; R53.1 Weakness; R25.1 Tremor, unspecified; E10.65 Type 1 diabetes mellitus with hyperglycemia; F41.9 Anxiety disorder, unspecified; Z86.16 Personal history of COVID-19; Z87.891 Personal history of nicotine dependence; Z79.01 Long term (current) use of anticoagulants; Z79.891 Long term (current) use of opiate analgesic; Z79.899 Other long term (current) drug therapy; Z88.0 Allergy status to penicillin; Z88.5 Allergy status to narcotic agent; Z88.6 Allergy status to analgesic agent; Z88.8 Allergy status to other drugs, medicaments and biological substances; Z91.030 Bee allergy status; Z68.36 Body mass index [BMI] 36.0-36.9, adult

== ENCOUNTER → 2024-06-28 | Outpatient (POV) | payer MEDICARE ==
[~2024-06-28] VITALS: Ht 177.8 cm; Wt 104.5 kg
[~2024-06-28] MED LIST changes: +ADVA115A INH; -LEVA1.2519 NEB; +LEVA1.2526 NEB; +LOPR1TAB6 PO; +TIOT18INH INH; +XALA0.007 OU
[2024-06-28 15:55] VITALS: BP 130/62; O2SAT 94
== END ==
LOC: M IRPOV 15:38
PROVIDERS: ATTEND Radiology Diagnostic Radiology
DX: J44.9 Chronic obstructive pulmonary disease, unspecified (principal); S32.018A Other fracture of first lumbar vertebra, initial encounter for closed fracture; J96.11 Chronic respiratory failure with hypoxia; E78.5 Hyperlipidemia, unspecified; E11.40 Type 2 diabetes mellitus with diabetic neuropathy, unspecified; E66.9 Obesity, unspecified; N40.0 Benign prostatic hyperplasia without lower urinary tract symptoms; Z87.442 Personal history of urinary calculi; Z88.0 Allergy status to penicillin; Z88.1 Allergy status to other antibiotic agents; Z88.5 Allergy status to narcotic agent; Z88.6 Allergy status to analgesic agent; Z88.8 Allergy status to other drugs, medicaments and biological substances; Z91.030 Bee allergy status; X58.XXXA Exposure to other specified factors, initial encounter; Y92.9 Unspecified place or not applicable; Y93.9 Activity, unspecified; Y99.9 Unspecified external cause status

== ENCOUNTER → 2024-08-04 | Outpatient (REF) | payer MEDICARE ==
[2024-08-04 12:38] LABS: INR 0.98; PROTHROMBIN TIME 13.3 SECONDS (12.5-14.5)
== END ==
LOC: M LAB REF 12:05
PROVIDERS: ATTEND Family Medicine
DX: Z01.818 Encounter for other preprocedural examination (principal); Z79.01 Long term (current) use of anticoagulants

== ENCOUNTER → 2024-10-06 | Outpatient (REF) | payer MEDICARE ==
[2024-10-06 15:45] LABS: INR 1.02; PROTHROMBIN TIME 13.7 SECONDS (12.5-14.5)
== END ==
LOC: M LAB REF 14:44
PROVIDERS: ATTEND Family Medicine
DX: Z01.818 Encounter for other preprocedural examination (principal); Z79.01 Long term (current) use of anticoagulants

== ENCOUNTER 2024-11-06 06:06 | Day surgery (SDC) | payer MEDICARE ==
[~2024-11-06] VITALS: Ht 177.8 cm; Wt 99.8 kg
[~2024-11-06 06:06] MED LIST changes: -FLOM0.4C39 PO; +METO37.5 PO; -PREG50CA PO; +PREG50CA87 PO; +TAMS-18 PO; +THC PO
[2024-11-06] MEDS: PHENYLEPHRINE 2.5% OPHTH SOL 2ML OD SCH (06:30)
[2024-11-06] MEDS: CYCLOPENTOLATE 1% OPHTH SOLN 2ML BTL OD SCH (06:30)
[2024-11-06] MEDS: TETRACAINE 0.5% OPHTH SOLN 4ML OD SCH (06:30)
[2024-11-06] MEDS ORDERED: VANCOMYCIN HCL 1,000 MG, VIAL MATE ADAPTER 1 EACH in D5W 250 ML IV ONE (07:00)
[2024-11-06] MEDS ORDERED: LR 1,000 ML IV SCH (07:00)
[2024-11-06] MEDS: FLURBIPROFEN 0.03% OPHTH SOLN 2.5 ML OD SCH (07:07)
[2024-11-06] MEDS ORDERED: fentaNYL 100 MCG/2 ML INJECTION As Ordered ONE (07:16)
[2024-11-06] MEDS ORDERED: MIDAZOLAM INJ 2MG/2ML VIAL As Ordered ONE (07:16)
[2024-11-06] MEDS: LIDOCAINE 1% SDV 5ML VIAL As Ordered ONE (07:39)
[2024-11-06] MEDS: DUOVISC (0.50ML VISCOAT/0.85ML PROVISC) OPHTH KIT As Ordered ONE (07:39)
[2024-11-06] MEDS: CEFUROXIME 1MG/0.1ML INTRACAMERAL INJ As Ordered ONE (07:40)
[2024-11-06 08:00] VITALS: BP 131/75; TEMP 97.1; O2SAT 98
== END 2024-11-06 08:18 | disposition home or self-care (01) ==
LOC: M SDC 06:06
PROVIDERS: ATTEND Ophthalmology
DX: H40.1111 Primary open-angle glaucoma, right eye, mild stage (principal); E11.36 Type 2 diabetes mellitus with diabetic cataract; H25.11 Age-related nuclear cataract, right eye; I10 Essential (primary) hypertension; E11.40 Type 2 diabetes mellitus with diabetic neuropathy, unspecified; J44.89 Other specified chronic obstructive pulmonary disease; E78.00 Pure hypercholesterolemia, unspecified; K21.9 Gastro-esophageal reflux disease without esophagitis; E66.9 Obesity, unspecified; F32.A Depression, unspecified; F41.9 Anxiety disorder, unspecified; E11.51 Type 2 diabetes mellitus with diabetic peripheral angiopathy without gangrene; Z79.899 Other long term (current) drug therapy; Z88.0 Allergy status to penicillin; Z88.5 Allergy status to narcotic agent; Z88.8 Allergy status to other drugs, medicaments and biological substances; Z88.6 Allergy status to analgesic agent; Z91.030 Bee allergy status; Z79.4 Long term (current) use of insulin; N40.0 Benign prostatic hyperplasia without lower urinary tract symptoms
CPT/HCPCS: 66991; C1783; J2250; J3010; V2632

== ENCOUNTER 2024-12-04 06:02 | Day surgery (SDC) | payer MEDICARE ==
[~2024-12-04] VITALS: Ht 177.8 cm; Wt 102.1 kg
[2024-12-04] MEDS: CYCLOPENTOLATE 1% OPHTH SOLN 2ML BTL OS SCH (06:34)
[2024-12-04] MEDS: FLURBIPROFEN 0.03% OPHTH SOLN 2.5 ML OS SCH (06:34)
[2024-12-04] MEDS: TETRACAINE 0.5% OPHTH SOLN 4ML OS SCH (06:34)
[2024-12-04] MEDS: PHENYLEPHRINE 2.5% OPHTH SOL 2ML OS SCH (06:34)
[2024-12-04] MEDS ORDERED: MIDAZOLAM INJ 2MG/2ML VIAL As Ordered ONE (06:54)
[2024-12-04] MEDS ORDERED: fentaNYL 100 MCG/2 ML INJECTION As Ordered ONE (06:54)
[2024-12-04] MEDS ORDERED: LR 1,000 ML IV SCH (07:00)
[2024-12-04] MEDS: CEFUROXIME 1MG/0.1ML INTRACAMERAL INJ As Ordered ONE (07:19)
[2024-12-04] MEDS: LIDOCAINE 1% SDV 5ML VIAL As Ordered ONE (07:36)
[2024-12-04 08:00] VITALS: BP 128/67; TEMP 97.2; O2SAT 97
== END 2024-12-04 08:12 | disposition home or self-care (01) ==
LOC: M SDC 06:02
PROVIDERS: ATTEND Ophthalmology
DX: H40.1121 Primary open-angle glaucoma, left eye, mild stage (principal); E11.36 Type 2 diabetes mellitus with diabetic cataract; H25.12 Age-related nuclear cataract, left eye; E11.40 Type 2 diabetes mellitus with diabetic neuropathy, unspecified; E78.00 Pure hypercholesterolemia, unspecified; J44.89 Other specified chronic obstructive pulmonary disease; N40.0 Benign prostatic hyperplasia without lower urinary tract symptoms; K21.9 Gastro-esophageal reflux disease without esophagitis; G50.0 Trigeminal neuralgia; Z79.899 Other long term (current) drug therapy; Z79.4 Long term (current) use of insulin; Z88.5 Allergy status to narcotic agent; Z88.0 Allergy status to penicillin; Z88.6 Allergy status to analgesic agent; Z91.030 Bee allergy status; Z98.41 Cataract extraction status, right eye
CPT/HCPCS: 66991; C1783; J0697; J2250; J3010; V2632

== ENCOUNTER → 2025-01-24 | Outpatient (POV) | payer MEDICARE ==
[~2025-01-24] VITALS: Ht 177.8 cm; Wt 102.3 kg
[~2025-01-24] MED LIST changes: +TIZA2CAP PO
[2025-01-24 09:38] VITALS: BP 126/80; O2SAT 96
== END ==
LOC: M IRPOV 09:10
PROVIDERS: ATTEND Radiology Diagnostic Radiology
DX: Z48.89 Encounter for other specified surgical aftercare (principal); S32.018D Other fracture of first lumbar vertebra, subsequent encounter for fracture with routine healing; J44.9 Chronic obstructive pulmonary disease, unspecified; J96.11 Chronic respiratory failure with hypoxia; E11.40 Type 2 diabetes mellitus with diabetic neuropathy, unspecified; G89.29 Other chronic pain; X58.XXXD Exposure to other specified factors, subsequent encounter; Z79.1 Long term (current) use of non-steroidal anti-inflammatories (NSAID); Z79.891 Long term (current) use of opiate analgesic; Z79.899 Other long term (current) drug therapy